=== PATIENT | female | born 1970 | race Caucasian/White ===

== ENCOUNTER 2021-05-14 13:19 | Outpatient (CLI) | payer OTHER, SELFPAY ==
[2021-05-14 13:46] LABS: D-Dimer Quantitative (DVT/PE) 0.42 FEU/ug/m (0.27-0.49)
== END 2021-05-14 23:59 | disposition short-term general hospital (02) ==
LOC: LABSPEC 13:24
PROVIDERS: PCP Family Medicine; Referring Provider Family Medicine; Visit Provider Family Medicine
DX: R07.9 Chest pain, unspecified (principal)
CPT/HCPCS: 85379

== ENCOUNTER 2025-04-07 09:48 | Emergency (ER) | payer OTHER, SELFPAY ==
[2025-04-07] VITALS (7 sets, daily range): BP systolic 105–159; BP diastolic 59–87; PULSE 81–114; RESP 15–18; TEMP 36.6–36.8; O2SAT 93–100; BMI 37.8
--- NOTE | 2025-04-07 09:49 | EDS_ITS ---
HPI History of Present Illness Chief Complaint: Chest Pain Narrative Narrative: Pt is a 54-year-old female who is presenting to the ER today with chief complaint of left mid/parasternal chest pain that radiates underneath her left breast. This does not radiate into her neck, jaw, arms or straight through to her back. Patient has a outpatient stress test ordered in May by her PCP, Dr. Manriquez. Patient has an echocardiogram that has been done in the last couple years. 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 Patient had no blood or vomit, no black tarry stools, no melena hematochezia Patient stated she is vomiting most of the food that she had for dinner last evening currently eating recipe. first episode was multiple times of emesis at that time. 2 different episodes, Patient started having vomiting around 1 AM this morning, Patient does take omeprazole daily. Patient also been having loose diarrhea stool as well. Patient initially took a Zofran tablet around approximate 1:30 AM. Patient took a Phenergan tablet around 3am and patient has not vomited since. is at bedside. Patient is on hormone therapy, no recent traveling. No recent heavy lifting twisting or turning. Patient has no rash. Patient currently has no abdominal pain or cramping. No diarrhea. Patient was told by her PCP if she has pain to come back into the ER to be evaluated. Patient's father had history of A-fib and cardiac history but no STEMI at a early age. Patient has no other first-degree relatives of STEMI or major cardiovascular disease or stroke at an early age. Patient non-smoker, no cocaine use. Patient heart score is 2, 1 for story, 1 for age REVIEW OF SYSTEMS: Unless otherwise stated in this report the patient's positive and negative responses for review of systems for constitutional, eyes, ENT, cardiovascular, respiratory, gastrointestinal, neurological, , musculoskeletal, and integument systems and related systems to the presenting problem are either stated in the history of present illness or were not pertinent or were negative for the symptoms and/or complaints related to the presenting medical problem. Nurse's notes and vital signs reviewed. The patient is not hypoxic. Vital signs reviewed and patient is not hypoxic. General: The patient appears well and in no apparent distress. Patient is resting comfortably on cart. Not toxic, lethargic, or listless. Skin: Warm, dry, no pallor noted. There is no rash noted. Head: Normocephalic, atraumatic Eye: Normal conjunctiva, no drainage, EOMI. PERRL. Ears, Nose, Mouth, and Throat: oral mucosa is moist. Nares patent. Mouth without vesicles. Cardiovascular: Regular Rate and Rhythm, no murmurs, gallops, or rubs. No reproducible tenderness to palpation to bilateral anterior, lateral, posterior chest wall. Respiratory: Patient is in no distress, no accessory muscle use, lungs are clear to auscultation, no wheezing, rales or rhonchi Back: non-tender, no CVA tenderness bilaterally to percussion. NO CTLS midline or paraspinal tenderness to palpation. GI: Soft, no tenderness to palpation, no masses appreciated. No rebound, guarding, or rigidity noted. Musculoskeletal: The patient has full range of motion of all extremities and j oints with no difficulty. Patient has no motor, no sensory deficits. Neurological: A&O x4, normal speech, no focal neurological deficits. Psychiatric: [facility] Home Medications ?Medication ?Instructions ?Recorded ?Last Taken ?Type ondansetron 4 mg disintegrating 4 mg PO Q8H PRN PRN Na usea #10 tabs 04/07/25 Unknown Rx tablet promethazine 25 mg rectal 25 mg RECTAL Q6H PRN PRN Tashi sea ##6 04/07/25 Unknown Rx suppository (Promethegan) Allergy/AdvReac Type Severity Reaction Status Date / Time piroxicam (From Feldene) AdvReac unknown Verified 04/07/25 09:50 terfenadine (From Seldane) AdvReac bruising Verified 04/07/25 09:50 Social History Smoking Status: Never smoker EXAM Physical Exam Const Vital Signs: 04/07/25 09:49 04/07/25 09:55 04/07/25 10:17 Temperature 98.3 F Temperature Source Oral Pulse Rate 114 H Respiratory Rate 18 Respiratory Effort Normal Blood Pressure 159/87 H Blood Pressure Mean 111 Pulse Ox 100 100 Oxygen Delivery Method Room Air Room Air 04/07/25 10:50 04/07/25 11:03 04/07/25 12:00 Temperature Temperature Source Pulse Rate 81 92 89 Respiratory Rate 15 15 18 Respiratory Effort Blood Pressure 140/67 H 134/59 H 129/59 H Blood Pressure Mean 91 84 82 Pulse Ox 99 100 100 Oxygen Delivery Method Room Air Room Air Room Air 04/07/25 13:03 Temperature Temperature Source Pulse Rate 97 Respiratory Rate 16 Respiratory Effort Blood Pressure 105/60 Blood Pressure Mean 75 Pulse Ox 93 Oxygen Delivery Method Room Air MDM MDM MDM Narrative Medical decision making narrative: Patient seen and examined: IV, labs, chest x-ray, aspirin prophylactically, IV fluids, Zofran, patient only wants Toradol for pain, no narcotics. Differential diagnosis includes but is not limited to: Nausea vomiting, gastritis, esophageal spasm, ACS, pneumonia, pneumothorax Relevant laboratory interpretation: Initial labs show no acute findings, initial troponin negative. Patient will have repeat troponin. Radiological studies: Chest x-ray shows no acute cardiopulmonary disease, no infiltrate, no effusion. Chest x-ray was interpreted by Dr. Mendoza. Reevaluation: EKG #1 EKG interpretation. EKG interpreted by Dr. Mendoza. Sinus tachycardia 101, normal axis deviation. EKG will be repeated as well. diffuse T wave inversion, QTc of 417, nonspecific ST changes. EKG #[address] Mendoza.. Normal sinus rhythm at 82 beats a minute. Normal axis deviation. Patient has T wave inversion noted in lead III, aVF. Patient no longer has diffuse T wave inversion as seen on the first EKG. Patient did show me an EKG from May 03, 2023 from her [facility]. Patient's EKG from 2023 is very similar to today's second EKG. Social barriers to healthcare: There are no food insecurities, there is no issue with transportation, there are no insurance barriers Disposition: Repeat troponin is done at noon, negative. Heart score 2. 1330 there was delay in receiving the second troponin. Plan blameless apologies were given to patient, she is very understanding. Patient pain is 1/10. Nausea has improved. Patient tolerating ice cubes and water with no difficulty. Patient will be discharged. 2 EKGs, 2 troponins. Both troponins were negative. Patient will follow-up with her PCP who she works with on Wednesday as well in the doctor's office. Strict return precautions were discussed, including intractable heaviness, tightness, pain. Any of the nausea, vomiting or any other acute concerns. Patient was given additional prescription for Zofran ODT and Phenergan suppositories. Patient will continue taking daily 81mg aspirin, no questions discharge. Critical care time 32 minutes exclusive from separate billable procedures that were performed. The following was considered in the determination of critical care but not limited to the level of medical decision making, intensive cardiac and/or respiratory monitoring, frequent vital sign monitoring, evaluation of laboratory studies, evaluation of radiographic studies, oxygen monitoring, and constant monitoring and speaking to family at bedside Lab Data Labs: Laboratory Results - last 24 hr 04/07/25 04/07/25 10:12 12:14 WBC 12.7 H RBC 5.01 Hgb 14.8 Hct 41.1 MCV 82.0 MCH 29.5 MCHC 36.0 RDW Std Deviation 38.3 RDW Coeff of Kirk 12.8 Plt Count 237 MPV 10.1 Immature Gran % (Auto) 0.300 Neut % (Auto) 93.6 H Lymph % (Auto) 2.5 L [place] % (Auto) 3.4 Eos % (Auto) 0.0 Baso % (Auto) 0.2 Absolute Neuts (auto) 11.9 H Absolute Lymphs (auto) 0.32 L Nucleated RBC % 0 Sodium 139 Potassium 3.9 Chloride 105 Carbon Dioxide 21.3 Anion Gap 13 BUN 23 H Creatinine 0.88 Estim Creat Clear Calc 77.91 Est GFR (MDRD) Non-Af 78 BUN/Creatinine Ratio 26.5 H Glucose 127 H Calcium 9.2 Troponin T High Sens < 6 Troponin T Hi Sens 2 Hr < 6 Radiography Diagnostic Testing: Clinical Impression(s) from Imaging Studies Chest X-Ray 04/07/25 09:50 IMPRESSION: NO ACUTE FINDINGS. Reading Location: [facility] Discharge Plan Triage Chief Complaint: Chest Pain ED Provider: Francisco Mendoza Dx/Rx/DC Orders Clinical Impression: Chest pain, Nausea & vomiting, Gastritis Instructions: ED Chest Pain, Uncertain Cause, ED Gastritis (Adult), ED Vomiting (Adult) Prescriptions: New promethazine [Promethegan] 25 mg suppository 25 mg RECTAL Q6H PRN PRN (Reason: Nausea) Qty: 6 0RF ondansetron 4 mg tablet,disintegrating 4 mg PO Q8H PRN PRN (Reason: Nausea) Qty: 10 0RF Primary Care Provider: Francisco Manriquez Referrals: Francisco Manriquez MD [Primary Care Provider, Family Practice] Activity Restrictions/Additional Instructions: Increase fluids at home for the next 1 to 2 days, clear liquids only. Gatorade, Powerade, water. On Wednesday or Wednesday, start introducing foods into diet. He is Zofran and Phenergan suppositories if needed. Follow-up with PCP for further recommendations and testing, and to move up your stress test if indicated. Print Language: Albanian Disposition Disposition: Home, Self Care
--- NOTE | 2025-04-07 09:50 | RAD_ITS ---
PROCEDURE: CHEST PA AND LATERAL 04/07/2025 REASON FOR EXAM: CP TECHNIQUE: Procedure Code: RADCXR Modality: DX Procedure: CHEST PA AND LATERAL COMPARISON: None FINDINGS: Hardware: None Heart: The heart size is normal. Mediastinum: The mediastinal contour is unremarkable. Lungs: The lungs are clear. Bones: The bones are unremarkable. RAD/Chest PA and Lateral IMPRESSION: NO ACUTE FINDINGS. Reading Location: [facility]
--- NOTE | 2025-04-07 10:12 | EKG12_ITS ---
Test Reason : CHEST PAIN Blood Pressure : */* mmHG Vent. Rate : 101 BPM Atrial Rate : 101 BPM P-R Int : 156 ms QRS Dur : 78 ms QT Int : 322 ms P-R-T Axes : 54 33 30 degrees QTcB Int : 417 ms Sinus tachycardia Possible Left atrial enlargement ST & T wave abnormality, consider anterior ischemia Abnormal ECG Confirmed by Brandon Olevra ([id number]), image editor GELY PASTOR ([id number]) on 04/13/2025 7:12:29 AM Referred By: Confirmed By: Brandon Olvera
--- OUTSIDE RECORDS SUMMARY | 2025-04-07 10:19 | XMS RPT_ITS | CCD ---
Author Organization [facility] CliniSyva Care Team Providers Care Bagger Meat Name Role Phone Sivakumar Matamoros PA-C Primary Care Provider [phone] Claude RN, Beverly Unavailable Unavailable Claude CAN, Beverly Unavailable Unavailable Sivakumar Matamoros PA-C Primary Care Provider [phone] Claude CAN, Beverly Unavailable Unavailable Tico Gould Unavailable Unavailable EYAL, HEENA Primary Care Unavailable KOBE TEMPLETON Referring Unavailable Eyal LEATHER GOODS ASSEMBLER.ARAM, Heena Primary Care Provider [phone] Evangelina Zambrano MD Unavailable Evangelina Zambrano MD Unavailable Stu PT, Marii Unavailable [phone] Eyal [employer] ASSEMBLER.ARAM, Heena Primary Care Provider [phone], Marii Unavailable [phone] Sivakumar Matamoros PA-C Primary Care Provider [phone] PROVIDER, UNKNOWN Referring Unavailable EYAL, HEENA Primary Care Unavailable EYAL, HEENA Primary Care Unavailable Eyal 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, Heena Primary Care Provider [phone] EYAL, HEENA Referring Unavailable EYAL, HEENA Primary Care Unavailable EYAL, HEENA Primary Care Unavailable EVANGELINA ZAMBRANO Attending Unavailable ARA CASSIDY Attending Unavailable EYAL, HEENA Primary Care Unavailable EVANGELINA ZAMBRANO Attending Unavailable EYAL, HEENA Primary Care Unavailable EYAL, HEENA Primary Care Unavailable VERNON NICOLE Attending Unavailable EYAL, HEENA Primary Care Unavailable EYAL, HEENA Referring Unavailable EYAL, HEENA Primary Care Unavailable EYAL, HEENA Referring Unavailable EYAL, HEENA Referring Unavailable EYAL, HEENA Primary Care Unavailable EYAL, HEENA Attending Unavailable Allergies Allergy Classification Reported Allergen(s) Allergy Type Date of Onset Reaction(s) Facility dog hair extract (2 sources) dog hair extract Drug Allergy 10-20-200 5 [facility] Dust (2 sources) Dust Substance Allergy 10-20-200 5 [facility] Mold Extract (2 sources) Mold Extract Drug Allergy 10-20-200 5 [facility] NSAIDs (2 sources) Piroxicam Drug Allergy 10-20-200 5 [facility] Pollen (2 sources) Grass pollen Substance Allergy 10-20-200 5 [facility] Terfenadine (2 sources) Terfenadine Drug Allergy 4 Other: See Comments [facility] Work Phone: (20 sources) dog hair extract; Translations: [DOG HAIR] Drug Allergy 10-20-200 5 [facility] Work Phone: (20 sources) Dust; Translations: [DUST] Propensity to adverse reactions 10-20-200 5 [facility] Work Phone: (20 sources) Grass pollen; Translations: [GRASS POLLEN] Propensity to adverse reactions 10-20-200 5 [facility] Work Phone: (20 sources) Mold Extract; Translations: [MOLD] Drug Allergy 10-20-200 5 [facility] Work Phone: (20 sources) Piroxicam; Translations: [PIROXICAM] Drug Allergy 10-20-200 5 [facility] Work Phone: (20 sources) Terfenadine Drug Allergy 10-20-200 5 [facility] Work Phone: (20 sources) Tree; Translations: [TREES] Propensity to adverse reactions 10-20-200 5 [facility] Work Phone: (20 sources) Cat Hair Extract; Translations: [CAT HAIR EXTRACT] Propensity to adverse reactions 10-20-200 5 [facility] Work Phone: (20 sources) Horse Hair And Dander; Translations: [HORSE HAIR AND DANDER] Propensity to adverse reactions 10-20-200 5 [facility] Work Phone: (1 source) OTHER; Translations: [OTHER] Propensity to adverse reactions (disorder) 5 [facility] Other [facility] (20 sources) Terfenadine; Translations: [SELDANE] Drug Allergy 4 Other: See Comments [facility] Work Phone: (2 sources) ELDERBERRY FRUIT; Translations: [ELDERBERRY FRUIT] Drug Allergy 5 Itching [facility] Medications Current Medications Medication Drug Class(es) Dates Sig (Normalized) Sig (Original) acetaminophen 500 mg oral tablet (20 sources) Start: 05-10-2023 take 2 tablets by mouth every eight hours as needed acetaminophen (TYLENOL) 500 mg tablet Take 2 tablets by mouth every 8 hours as needed for pain. 90 tablet 05/12/2023 4:50 PM EST 05/10/2023 Active End: 04-30-2023 take 2 tablets by mouth every six hours as needed acetaminophen (TYLENOL) 325 mg tablet Take 650 mg by mouth every 6 hours as needed. 04/30/2023 Discontinued (Course of therapy completed) Comment on above: Take 650 mg by mouth every 6 hours as needed. Take 2 tablets by mo uth every 8 hours as needed for pain. [id number] 200 actuat albuterol 0.09 mg/actuat metered dose inhaler (20 sources) beta2-Adrenergic Agonist Start: 04-01-20 End: 07-14-19 23 take 2 puff(s) by inhalation every four hours as needed for cough albuterol HFA (PROVENTIL HFA, VENTOLIN HFA) 90 mcg/actuation inhaler Indications: Cough Inhale 2 Puffs as instructed every 4 hours as needed (for cough, wheezing, chest tightness or shortness of breath. Use with spacer. ). 18 g 3 03/19/2023 3:20 PM EST 07/13/2022 Active Comment on above: Inhale 2 Puffs as in structed every 4 hours as needed (for cough, wheezing, chest tightness or shortness of breath. Use with spacer. ). amoxicillin 500 mg oral capsule (19 sources) Penicillin-class Antibacterial Start: 02-09-20 24 take 4 capsules by mouth every hour amoxicillin (AMOXIL) 500 mg capsule Take 4 capsules by mouth one hour prior to dental cleaning/procedure 4 capsule 3 02/09/2024 Active Start: 07-19-2023 End: 07-21-2023 take 4 tablets by mouth once Amoxicillin 500 mg tablet Take 4 tablets by mouth one time only for 1 dose. Take all 4 tablets 1 hour before dental procedure 4 tablet 0 07/19/2023 07/21/2023 amoxicillin 875 mg / clavulanate 125 mg oral tablet (1 source) Penicillin-class Antibacterial Start: 03-28-2024 End: 04-04-2024 take 1 tablet by mouth twice daily amoxicillin-clavulanate potassium (AUGMENTIN) 875-125 mg per tablet Take 1 tablet by mouth two times a day for 7 days. 14 tablet 03/28/2024 04/04/2024 Active azithromycin 250 mg oral tablet (1 source) Macrolide Antimicrobial Start: 11-19-2023 End: 11-24-2023 azithromycin (ZITHROMAX Z-IVON) 250 mg tablet Indications: Body aches , Chills , Sensation of fullness in left ear , Throat irritation , Chest tightness , Acute cough , Persistent cough for 3 weeks or longer Take 2 tablets day one, then, 1 tablet daily until gone. 6 tablet 0 11/19/2023 11/24/2023 Active benoxinate hydrochloride 4 mg/ml / fluorescein sodium 2.5 mg/ml ophthalmic solution (3 sources) Diagnostic Dye Start: 12-26-2024 End: 12-27-2024 fluorescein-benoxinate 0.25-0.4 % 1 drop (FLURESS) Start: 12-23-2023 End: 12-24-2023 fluorescein-benoxinate 0.3-0 .4 % 1 Drop (FLURESS) Start: 12-23-2023 End: 12-24-2023 1 Drop, BOTH EYES, DIRECT ED, Starting on Graciela 12/23/23 at 1330, Until Wed12/24/23 at 0129, Administer for applanation tonometry. In the event of a Fluress shortage, administer Marcela-Fluor 1 drop into both eyes as directed for applanation tonometry benzonatate 100 mg oral capsule (20 sources) Non-narcotic Antitussive Start: 11-19-2023 take 2 capsules by mouth three times daily as needed benzonatate (TESSALON PERLE) 100 mg capsule Indications: Body aches , Chills , Sensation of fullness in left ear , Throat irritation , Chest tightness , Acute cough , Persistent cough for 3 weeks or longer Take 2 capsules by mouth three times a day as needed. 30 capsule 1 11/19/2023 Active Start: 07-14-2022 End: 04-23-2023 take 2 capsules by mouth three times daily as needed benzonatate (TESSALON PERLE) 100 mg capsule Indications: Persistent cough for 3 weeks or longer Take 2 capsules by mouth three times daily as needed. 30 capsule 1 07/14/2022 04/23/2023 Discontinued Comment on above: Take 2 capsules by m outh three times daily as needed. 24 hr buPROPion hydrochloride 300 mg extended release oral tablet (20 sources) Aminoketone Start: End: take 1 tablet by mouth once daily in the evening buPROPion XL (WELLBUTRIN XL) 300 mg 24 hr tablet Indications: Anxiety , Adjustment disorder with mixed anxiety and depressed mood Take 1 tablet by mouth once daily. 90 tablet 3 12/04/2024 4:46 PM EDT 10/31/2024 Active Start: 08-27-2022 End: 10-22-2023 take 39-39.9 tablets by mouth twice daily buPROPion SR (WELLBUTRIN SR) 150 mg 12 hr tablet Indications: Recurrent major depressive disorder, in partial remission (HCC) , Class 2 severe obesity with serious comorbidity and body mass index (BMI) of 39.0 to 39.9 in adult, unspecified obesity type (HCC) Take 1 tablet by mouth twice daily. 180 tablet 3 10/08/2022 10/12/2023 Active Start: 09-29-2021 End: 05-26-2022 take 1 tablet by mouth once daily buPROPion XL (WELLBUTRIN XL) 300 mg 24 hr tablet Take 1 tablet by mouth once daily. 90 tablet 09/29/2021 05/26/2022 Discontinued (Discontinued by another Health Care Provider) Start: 09-29-2021 End: 03-02-2022 take 1 tablet by mouth once daily buPROPion XL (WELLBUTRIN XL) 150 mg 24 hr tablet Take 1 tablet by mouth once daily. To equal 450mg daily 90 tablet 0 09/29/2021 03/02/2022 Discontinued Start: 02-02-2022 take 1 tablet by [facility] once daily buPROPion XL (WELLBUTRIN XL) 150 mg 24 hr tablet Take 1 tablet by mouth once daily. To equal 450mg daily 90 tablet 1 05/14/2021 Active Start: 05-14-2021 take 1 tablet by [facility] once daily buPROPion XL (WELLBUTRIN XL) 300 mg 24 hr tablet Take 1 tablet by mouth once daily. 90 tablet 1 05/14/2021 Active Comment on above: Take 1 tablet by [facility] once daily. To equal 450mg daily Take 1 tablet by [facility] once daily. Take 1 tablet by [facility] twice daily. cholecalciferol 0.025 mg oral capsule (20 sources) Vitamin D take 1 capsule by mouth once daily Cholecalciferol, Vitamin D3, 25 mcg (1,000 unit) cap Take 1,000 Units by mouth once daily. Active Comment on above: Take 1,000 Units by mouth once daily. clobetasol propionate 0.0005 mg/mg topical ointment (20 sources) Corticosteroid Start: 014 End: 022 clobetasol (TEMOVATE) 0.05 % ointment Indications: Eczematous dermatitis Apply selectively to spots or lesions of eczematous and psoriasiform dermatitis of elbows and lower legs: once to twice per day for up to 2-4 weeks or less as needed until clear and then try to stop or taper off to a bland emollient cream such as CeraVe cream (or Cetaphil cream) as able. AVOID deep fold areas, face, eyes, and eyelids with the Clobetasol. 60 g 2 12/03/2021 Active Comment on above: Apply selectively to spots or lesions of eczematous and psoriasiform dermatitis of elbows and lower legs: once to twice per day for up to 2-4 weeks or less as needed until clear and then try to stop or taper off to a bland emollient cream such as CeraVe cream (or Cetaphil cream) as able. AVOID deep fold areas, face, eyes, and eyelids with the Clobetasol. cyclobenzaprine hydrochloride 10 mg oral tablet (20 sources) Muscle Relaxant Start: 024 take 1 tablet by mouth three times daily as needed for muscle spasms cyclobenzaprine (FLEXERIL) 10 mg tablet Indications: Scoliosis, unspecified scoliosis type, unspecified spinal region , Muscle spasm of back Take 1 tablet by mouth three times a day as needed for muscle spasm. 30 tablet 5 06/23/2024 4:08 PM EDT 10/22/2023 Active Start: 04-01-2020 End: 06-28-2023 take 1 tablet by mouth three times daily as needed for muscle spasms cyclobenzaprine (FLEXERIL) 10 mg tablet Indications: Scoliosis , Muscle spasm of back Take 1 tablet by mouth three times daily as needed for Muscle Spasm. 30 tablet 5 04/01/2020 06/28/2023 Discontinued (Course of therapy completed) Comment on above: Take 1 tablet by [facility] th three times daily as needed for Muscle Spasm. doxycycline monohydrate 100 mg oral tablet (1 source) Tetracycline-class Drug Start: 06-28-2022 End: 07-05-2022 take 1 tablet by mouth twice daily doxycycline monohydrate 100 mg tablet Indications: Lower resp. tract infection Take 1 tablet by mouth twice daily for 7 days. 14 tablet 0 06/28/2022 07/05/2022 Active Comment on above: Take 1 tablet by [facility] th twice daily for 7 days. estradiol 1 mg oral tablet (20 sources) Estrogen Start: 02-08-2023 End: 10-31-2024 take 1 tablet by mouth once daily in the evening estradiol (ESTRACE) 1 mg tablet Indications: Hot flashes due to menopause Take 1 tablet by mouth once daily. 90 tablet 3 11/14/2024 4:38 PM EDT 10/31/2024 Active Start: 09-19-2021 End: 01-27-2022 estradiol (ESTRING) 2 mg (7. 5 mcg /24 hour) vaginal ring Indications: Menopausal symptoms , Post-menopause on HRT (hormone replacement therapy) INSERT 1 RING VAGINALLY DIRECTED EVERY 3 MONTHS 1 Each 4 09/19/2021 01/27/2022 Discontinued (Discontinued by Patient) Start: 06-11-2021 End: 09-19-2021 estradiol (ESTRACE) 1 mg tab let Take 1 and 1/2 tablets by mouth once daily. 135 tablet 0 06/11/2021 09/19/2021 Discontinued Comment on above: Take 1 and 1/2 table ts by mouth once daily. INSERT 1 RING VAGINA LLY DIRECTED EVERY 3 MONTHS Take 1 tablet by [facility] th once daily. fexofenadine hydrochloride 180 mg oral tablet (20 sources) Histamine-1 Receptor Antagonist Start: End: 4 take 1 tablet by mouth once daily fexofenadine (TELLY) 180 mg tablet Take 1 tablet by mouth once daily. 90 tablet 3 08/06/2023 Active Comment on above: Take 180 mg by mouth once daily. Take 1 tablet by [facility] once daily. FLUoxetine 10 mg oral capsule (8 sources) Serotonin Reuptake Inhibitor Start: 5 take 1 capsule by mouth twice daily in the evening FLUoxetine (PROZAC) 10 mg capsule Indications: Anxiety , Adjustment disorder with mixed anxiety and depressed mood Take 1 capsule by mouth two times a day. 180 capsule 1 11/27/2024 4:20 PM EDT 11/24/2024 Active Start: 10-31-2024 End: 11-24-2024 take 1 capsule by mouth once daily FLUoxetine (PROZAC) 10 mg capsule Indications: Anxiety , Adjustment disorder with mixed anxiety and depressed mood Take 1 capsule by mouth once daily. 30 capsule 2 10/31/2024 11/24/2024 Discontinued fluticasone propionate 0.05 mg/actuat metered dose nasal spray (20 sources) Corticosteroid Start: 06-23-2013 take 2 spray(s) by mouth once daily fluticasone 50 mcg/actuation nasal spray Use 2 Sprays in each nostril once daily. Rinse mouth after use. 3 Bottle 3 06/23/2013 Active Comment on above: Use 2 Sprays in each nostril once daily. Rinse mouth after use. ibuprofen 600 mg oral tablet (20 sources) Nonsteroidal Anti-inflammatory Drug Start: 05-15-2023 take 1 tablet by mouth every six hours ibuprofen (MOTRIN) 600 mg tablet Take 600 mg by mouth every 6 hours. 05/15/2023 Active Comment on above: Take 600 mg by mouth every 6 hours. ketorolac tromethamine 10 mg oral tablet (3 sources) Nonsteroidal Anti-inflammatory Drug, Cyclooxygenase Inhibitor Start: 12-29-2023 End: 01-02-2024 take 1 tablet by mouth every six hours as needed for pain keTORolac (TORADOL) 10 mg tablet Indications: Acute pain of left shoulder , Acute left-sided thoracic back pain Take 1 tablet by mouth every 6 hours as needed for pain for up to 4 days. Patient should start on December 29, 2023. 16 tablet 12/29/2023 01/02/2024 Active Start: 12-28-2023 End: 12-28-2023 keTORolac 60 mg injection (T oradol) Start: 12-28-2023 End: 12-28-2023 60 mg, INTRAMUSCULAR, ONCE, 1 dose, On Wed12/28/23 at 0800, Ketorolac (Toradol) is indicated for the short-term (up to 5 days) management of moderately severe acute pain. Continuation of ketorolac (Toradol) beyond 5 days increases the risk of developing serious adverse events. Please verify the duration of therapy for ketorolac (Toradol)., If ordered PRN for pain, patient/guardian may elect to receive this medication for higher pain levels INSTEAD of the opioid, if preferred: Yes LORazepam 0.5 mg oral tablet (20 sources) Benzodiazepine Start: 05-21-2016 take 1 tablet by mouth every twelve hours as needed for anxiety and anxiety LORazepam (ATIVAN) 0.5 mg tab Indications: Anxiety Take 1 tablet by mouth twice daily as needed. 45 tablet 05/21/2016 Active Comment on above: Take 1 tablet by mouth twice daily as ne eded. [The details of the medication are not available because there are pending changes by a home health clinician.] multivit-min/rudi martin fumarate (MULTI VITAMIN ORAL) (20 sources) Start: 05-13-2023 multivit-min/f erro us fumarate (MULTI VITAMIN ORAL) Take 1 tablet by mouth once daily. Patient should start on May 13, 2023. 05/13/2023 Active Start: 05-13-2023 multivit-min/f errous fumarate (MULTI VITAMIN ORAL) Take 1 tablet by mouth once daily. Patient should start on May 13, 2023. 0 05/13/2023 Active multivit-min/rudi martin fumarate (MULTI VITAMIN ORAL) Take by mouth once daily. 0 Active multivit-min/rudi martin fumarate (MULTI VITAMIN ORAL) Take by mouth. 0 Active Comment on above: Take by mouth. Take by mouth once d aily. Take 1 tablet by [facility] th once daily. Patient should start on May 13, 2023. Naproxen (20 sources) Nonsteroidal Anti-inflammatory Drug NAPROXEN ORAL Take b y mouth. Active NAPROXEN ORAL Ta ke by mouth. 0 Active omeprazole 20 mg delayed release oral capsule (20 sources) Proton Pump Inhibitor Start: 06-03-2021 End: 07-17-2024 take 1 capsule by mouth once daily omeprazole (PRILOSEC) 20 mg capsule Take 1 capsule by mouth once daily. 90 capsule 3 07/18/2024 Active Comment on above: Take 1 capsule by mo [facility] once daily. ondansetron 8 mg disintegrating oral tablet (20 sources) Serotonin-3 Receptor Antagonist Start: 10-22-2023 take 1 tablet by mouth every eight hours as needed ondansetron orally disintegrating (ZOFRAN ODT) 8 mg disintegrating tablet Take 1 tablet by mouth every 8 hours as needed for nausea/vomiting. 30 tablet 5 02/04/2024 5:15 PM EDT 10/22/2023 Active Start: 05-12-2023 End: 10-22-2023 take 1 tablet by mouth every eight hours as needed ondansetron orally disintegrating (ZOFRAN ODT) 4 mg disintegrating tablet Take 1 tablet by mouth every 8 hours as needed for nausea/vomiting. 15 tablet 05/12/2023 10/22/2023 Discontinued End: 05-12-2023 take 1 tablet by mouth every eight hours as needed ondansetron (ZOFRAN) 4 mg tablet Take 4 mg by mouth every 8 hours as needed for nausea/vomiting. 05/12/2023 Discontinued Comment on above: Take 4 mg by mouth e very 8 hours as needed for nausea/vomiting. [facility] 8 hours as needed for nausea/vomiting. perflutren lipid microspheres 1.3 mL in NaCl (PF) 0.9% 10 mL injection (DEFINITY) (8 sources) Start: 06-12-2020 End: 09-12-2021 perflutren lipid microspheres 1.3 mL in NaCl (PF) 0.9% 10 mL injection (DEFINITY) phenylephrine hydrochloride 25 mg/ml ophthalmic solution (3 sources) alpha-1 Adrenergic Agonist Start: 12-26-2024 End: 12-27-2024 PHENYLephrine 2.5 % 1 drop (AK-DILATE, KAMINI-SYNEPHRINE) Start: 12-23-2023 End: 12-24-2023 PHENYLephrine 2.5 % 1 Drop ( AK-DILATE, KAMINI-SYNEPHRINE) Start: 12-17-2022 End: 12-17-2022 PHENYLephrine 2.5 % 1 Drop ( AK-DILATE, KAMINI-SYNEPHRINE) predniSONE 20 mg oral tablet (4 sources) Start: 09-08-2022 End: 09-13-2022 take 2 tablets by mouth once daily predniSONE (DELTASONE) 20 mg tablet Indications: Arthritis of left knee Take 2 tablets by mouth once daily for 5 days. 10 tablet 0 09/08/2022 09/13/2022 Active Start: 06-28-2022 End: 07-03-2022 take 2 tablets by mouth once daily predniSONE (DELTASONE) 20 mg tablet Indications: Lower resp. tract infection , History of asthma Take 2 tablets by mouth once daily for 5 days. 10 tablet 0 06/28/2022 07/03/2022 Active Comment on above: Take 2 tablets by [facility] once daily for 5 days. 125 ml sodium chloride 9 mg/ml prefilled syringe (8 sources) Start: End: 2 sodium chloride 0.9 % (flush) 10 mL (BD POSIFLUSH) traZODone hydrochloride 50 mg oral tablet (20 sources) Serotonin Reuptake Inhibitor Start: End: take 1-2 tablets by mouth once daily at bedtime traZODone (DESYREL) 50 mg tablet Take 1-2 tablets by mouth daily at bedtime. 180 tablet 1 04/11/2024 11:16 AM EST 03/20/2024 09/16/2024 Active Start: 06-18-2023 End: 03-17-2024 take 1-2 tablets by mouth once daily at bedtime traZODone (DESYREL) 50 mg tablet Take 1-2 tablets by mouth daily at bedtime. 90 tablet 1 03/17/2024 03/17/2024 Discontinued Comment on above: Take 1-2 tablets by mouth daily at bedtime. 1 ml triamcinolone acetonide 40 mg/ml injection (4 sources) Corticosteroid Start: 12-04-2022 End: 01-03-2023 triamcinolone acetonide 40 mg injection (KeNALog 40) Start: 12-04-2022 End: 12-04-2022 triamcinolone acetonide 40 m g injection (KeNALog 40) tropicamide 10 mg/ml ophthalmic solution (3 sources) Anticholinergic Start: 12-26-2024 End: 12-27-2024 tropicamide 1 % 1 drop (MYDRIACYL) Start: 12-23-2023 End: 12-24-2023 tropicamide 1 % 1 Drop (MYDR IACYL) Start: 12-17-2022 End: 12-17-2022 tropicamide 1 % 1 Drop (MYDR IACYL) Completed/Discontinued Medications Medication Drug Class(es) Dates Sig (Normalized) Sig (Original) ascorbic acid 500 mg oral tablet (20 sources) Vitamin C Start: 05-11-2023 End: 10-22-2023 take 1 tablet by mouth twice daily at mealtime ascorbic acid, vitamin C, (VITAMIN C) 500 mg tablet Take 1 tablet by mouth two times a day with meals for 28 doses. Patient should start on May 11, 2023. 28 tablet 05/11/2023 10/22/2023 Discontinued Comment on above: Take 1 tablet by [facility] two times a day with meals for 28 doses. Patient should start on May 11, 2023. aspirin 81 mg delayed release oral tablet (20 sources) Platelet Aggregation Inhibitor, Nonsteroidal Anti-inflammatory Drug Start: 05-11-2023 End: 10-22-2023 take 1 tablet by mouth twice daily aspirin, enteric coated (ASPIRIN, ENTERIC COATED) 81 mg EC tablet Take 1 tablet by mouth two times a day. Patient should start on May 11, 2023. 60 tablet 05/11/2023 10/22/2023 Discontinued Comment on above: Take 1 tablet by [facility] two times a day. Patient should start on May 11, 2023. chrm/vineg/bit-or ang peel/gr t (APPLE CIDER VINEGAR PLUS ORAL) (17 sources) End: 12-17-2022 chrm/vineg/bit-ora ng peel/gr t (APPLE CIDER VINEGAR PLUS ORAL) Take by mouth once daily. 0 12/17/2022 Discontinued (Other) chrm/vineg/bit-o rang peel/gr t (APPLE CIDER VINEGAR PLUS ORAL) Take by mouth once daily. 0 Active chrm/vineg/bit-o rang peel/gr t (APPLE CIDER VINEGAR PLUS ORAL) Take by mouth. 0 Active Comment on above: Take by mouth. Take by mouth once d aily. Cinnamon Preparation (17 sources) Non-Standardized Food Allergenic Extract End: 3 take 1 capsule by mouth twice daily CINNAMON Take by mouth twice daily. Capsule 0 12/17/2022 Discontinued (Other) take 1 capsule by mouth twice da artur CINNAMON Take by mouth twice daily. Capsule 0 Active CINNAMON Comment on above: Take by mouth twice daily. Capsule 24 hr desvenlafaxine succinate 25 mg extended release oral tablet (20 sources) Serotonin and Norepinephrine Reuptake Inhibitor Start: 022 End: 023 take 1 tablet by mouth once daily desvenlafaxine ER (PRISTIQ) 50 mg 24 hr tablet Take 1 tablet by mouth once daily. 90 tablet 1 03/04/2022 05/26/2022 Discontinued (Course of therapy completed) Start: 01-27-2022 End: 07-30-2022 take 1 tablet by mouth once daily desvenlafaxine ER (PRISTIQ) 25 mg 24 hr tablet Indications: Recurrent major depressive disorder, in partial remission (HCC) Take 1 tablet by mouth once daily. 30 tablet 2 01/27/2022 05/26/2022 Discontinued (Dosage adjustment) Comment on above: Take 1 tablet by [facility] th once daily. TAKE 1 TABLET BY [facility] TH ONCE DAILY. WEANING 50MG ALTERNATING WITH 25MG X 1 WEEK, THEN 25MG DAILY X 1 WEEK , THEN 25MG EVERY OTHER DAY X 1 WEEK AND OFF. diphenhydrAMINE (20 sources) Histamine-1 Receptor Antagonist End: 12-17-2022 diphenhydramine HCl (BENADRYL ORAL) Take by mouth as directed. 12/17/2022 Discontinued (Other) End: 12-17-2022 diphenhydramine HCl (BENADRY L ORAL) Take by mouth as directed. 0 12/17/2022 Discontinued (Other) diphenhydramine HCl (BENADRYL ORAL) Take by mouth as directed. 0 Active Comment on above: Take by mouth as dir ected. docusate sodium 100 mg oral capsule (16 sources) Start: 4 End: 4 take 1 capsule by mouth every twelve hours as needed docusate sodium (COLACE) 100 mg capsule Take 1 capsule by mouth two times a day as needed for constipation. 60 capsule 05/10/2023 06/11/2023 Comment on above: Take 1 capsule by [facility] two times a day as needed for constipation. escitalopram 10 mg oral tablet (20 sources) Serotonin Reuptake Inhibitor Start: 2 End: 3 take 1 tablet by mouth once daily escitalopram oxalate (LEXAPRO) 10 mg tablet Take 1 tablet by mouth once daily. 90 tablet 09/29/2021 05/26/2022 Discontinued (Discontinued by another Health Care Provider) Comment on above: Take 1 tablet by [facility] once daily. fluticasone / salmeterol (16 sources) Corticosteroid, beta2-Adrenergic Agonist Start: 3 End: 4 take 1 puff(s) by mouth twice daily fluticasone-salmetero l (ADVAIR DISKUS) 250-50 mcg/dose inhaler Inhale 1 Puff as instructed twice daily. Rinse and gargle mouth after use with water. 1 Each 2 08/19/2022 04/23/2023 Discontinued Start: 08-19-2022 take 1 puff(s) by [facility] twice daily fluticasone-salmeterol (ADVAIR DISKUS) 250-50 mcg/dose inhaler Inhale 1 Puff as instructed twice daily. Rinse and gargle mouth after use with water. 1 Each 2 08/19/2022 Active Comment on above: Inhale 1 Puff as ins tructed twice daily. Rinse and gargle mouth after use with water. 10 ml lidocaine hydrochloride 10 mg/ml injection (2 sources) Antiarrhythmic, Amide Local Anesthetic Start: 12-04-2022 End: 12-05-2022 lidocaine (PF) 10 mg/mL (1 %) 20 mg injection (XYLOCAINE) Start: 12-04-2022 End: 12-04-2022 lidocaine (PF) 10 mg/mL (1 % ) 2 mL injection (XYLOCAINE) montelukast 10 mg oral tablet (20 sources) Leukotriene Receptor Antagonist Start: 07-14-2022 End: 04-23-2023 take 1 tablet by mouth once daily at bedtime montelukast (SINGULAIR) 10 mg tablet Indications: Persistent cough for 3 weeks or longer Take 1 tablet by mouth daily at bedtime. 30 tablet 1 07/14/2022 04/23/2023 Discontinued Comment on above: Take 1 tablet by reina th daily at bedtime. naltrexone hydrochloride 50 mg oral tablet (13 sources) Opioid Antagonist Start: 10-22-2022 End: 10-22-2023 naltrexone 50 mg tablet Indications: Recurrent major depressive disorder, in partial remission (HCC) , Class 2 severe obesity with serious comorbidity and body mass index (BMI) of 39.0 to 39.9 in adult, unspecified obesity type (HCC) Take 1/2 tablet by mouth twice daily. 90 tablet 3 10/22/2022 05/10/2023 Discontinued Start: 09-24-2022 End: 10-22-2023 take 39-39.9 tablets by mouth twice daily naltrexone (TREXAN) 50 mg tablet Indications: Recurrent major depressive disorder, in partial remission (HCC) , Class 2 severe obesity with serious comorbidity and body mass index (BMI) of 39.0 to 39.9 in adult, unspecified obesity type (HCC) Take 0.5 tablets by mouth twice daily. 90 tablet 3 10/22/2022 10/22/2023 Active Comment on above: Take 0.5 tablets by mouth twice daily. Take 1/2 tablet by m outh twice daily. nystatin 100 unt/mg topical powder (20 sources) Polyene Antifungal Start: 09-15-2019 End: 10-22-2023 nystatin (MYCOSTATIN) powder Indications: Skin yeast infection [The details of the medication are not available because there are pending changes by a home health clinician.] 15 g 09/15/2019 10/22/2023 Discontinued Start: 09-15-2019 nystatin (MYCO STATIN) powder Indications: Skin yeast infection Apply 1 application to affected area four times daily. 15 g 0 09/15/2019 Active Comment on above: Apply 1 application to affected area four times daily. [The details of the medication are not available because there are pending changes by a home health clinician.] oxaprozin 600 mg oral tablet (1 source) Nonsteroidal Anti-inflammatory Drug Start: take 2 tablets by mouth once daily oxaprozin (DAYPRO) 600 mg tablet Take 2 tablets by mouth once daily. 60 tablet 5 01/12/2023 Active Comment on above: Take 2 tablets by [facility] once daily. oxyCODONE hydrochloride 5 mg oral tablet (13 sources) Opioid Agonist Start: 4 End: 4 take 1 tablet by mouth every six hours as needed for pain oxyCODONE IR (ROXICODONE) 5 mg immediate release tablet Indications: S/P total knee arthroplasty, left Take 1 tablet by mouth every 6 hours as needed for pain for up to 7 days. 28 tablet 05/20/2023 05/27/2023 Comment on above: Take 1-2 tablets by mouth every 6 hours as needed for pain for up to 7 days. Take 1 tablet by [facility] every 6 hours as needed for pain for up to 7 days. PARoxetine hydrochloride 20 mg oral tablet (20 sources) Serotonin Reuptake Inhibitor Start: 3 take 1 tablet by mouth once daily PARoxetine (PAXIL) 20 mg tablet Take 1 tablet by mouth once daily. 90 tablet 3 09/10/2022 Active Start: 05-26-2022 End: 02-08-2023 take 1 tablet by mouth once daily PARoxetine (PAXIL) 10 mg tablet Take 1 tablet by mouth once daily. 90 tablet 3 07/13/2022 02/08/2023 Discontinued Comment on above: Take 1 tablet by [facility] once daily. polyethylene glycol 3350 13683 mg powder for oral solution (13 sources) Osmotic Laxative Start: End: polyethylene glycol 3350 (MIRALAX) 17 gram/dose powder Take 1 capful (17 grams) by mouth once daily as needed for constipation for up to 10 days. Dissolve dose in 4 - 8 ounces of liquid and take as directed. 238 g 05/10/2023 05/26/2023 Comment on above: Take 1 capful (17 gr ams) by mouth once daily as needed for constipation for up to 10 days. Dissolve dose in 4 - 8 ounces of liquid and take as directed. promethazine hydrochloride 25 mg oral tablet (20 sources) Phenothiazine Start: End: take 0.5-1 tablets by mouth every four hours as needed for nausea promethazine (PHENERGAN) 25 mg tablet Take 1/2 - 1 tablet by mouth every 4 hours as needed for nausea 45 tablet 1 04/01/2020 05/12/2023 Discontinued Comment on above: Take 1/2 - 1 tablet by mouth every 4 hours as needed for nausea proparacaine hydrochloride 5 mg/ml ophthalmic solution (1 source) Local Anesthetic Start: End: proparacaine 0.5 % 1 Drop (ALCAINE) 0.25 mg, 0.5 mg dose 1.5 ml semaglutide 1.34 mg/ml pen injector (20 sources) Start: End: semaglutide (OZEMPIC) 0.25 mg or 0.5 mg(2 mg/1.5 mL) pen Indications: Obesity, Class II, BMI 35-39.9 Inject 0.25 mg subcutaneously one time a week. 4 Each 01/27/2022 05/26/2022 Discontinued Comment on above: Inject 0.25 mg subcu taneously one time a week. sucralfate 1000 mg oral tablet (1 source) Aluminum Complex Start: End: take 1 tablet by mouth four times daily sucralfate (CARAFATE) 1 gram tablet Take 1 tablet by mouth four times daily. 120 tablet 1 10/04/2020 07/17/2021 Discontinued (Course of therapy completed) Comment on above: Take 1 tablet by reina th four times daily. traMADol hydrochloride 50 mg oral tablet (4 sources) Opioid Agonist Start: End: take 1 tablet by mouth every six hours as needed for pain traMADol (ULTRAM) 50 mg tablet Indications: S/P total knee arthroplasty, left Take 1 tablet by mouth every 6 hours as needed for pain for up to 7 days. for pain. 28 tablet 0 06/28/2023 07/05/2023 End: 05-10-2023 take 1 tablet by mouth every eight hours as needed traMADol (ULTRAM) 50 mg tablet Take 50 mg by mouth every 8 hours as needed for pain. 0 05/10/2023 Discontinued Comment on above: Take 50 mg by mouth every 8 hours as needed for pain. Take 1 tablet by reina th every 6 hours as needed for pain for up to 7 days. for pain. Turmeric extract (17 sources) End: 12-17-2022 TURMERIC ORAL Take by mouth twice daily. 0 12/17/2022 Discontinued (Course of therapy completed) TURMERIC ORAL Ta ke by mouth twice daily. 0 Active TURMERIC ORAL Ta ke by mouth. 0 Active Comment on above: Take by mouth. Take by mouth twice daily. Problems Active Problems Problem Classification Problem Date Documented Da te Episodic/Chronic Adjustment disorders (20 sources) Adjustment disorder with depressed mood; Translations: [Adjustment disorder with depressed mood] Onset: 5 01-29-2005 Chronic Anxiety disorders (20 sources) Anxiety; Translations: [Anxiety disorder, unspecified] Onset: 4 05-03-2023 Chronic Asthma (20 sources) Mild intermittent asthma; Translations: [Mild intermittent asthma, uncomplicated] Onset: 7 03-19-2017 Chronic Blindness and vision defects (20 sources) Bilateral myopia of eyes; Translations: [Myopia, bilateral] Onset: 6 09-03-2017 Episodic Cataract (2 sources) Bilateral posterior subcapsular polar senile cataract of eyes; Translations: [Posterior subcapsular polar age-related cataract, bilateral] 12-17-2022 Chronic Disorders of teeth and jaw (20 sources) Temporomandibular joint crepitus; Translations: [Other specified disorders of temporomandibular joint] 01-29-2005 Episodic Esophageal disorders (20 sources) Gastroesophageal reflux disease without esophagitis; Translations: [Gastro-esophageal reflux disease without esophagitis] Onset: 7 03-19-2017 Chronic Hemorrhoids (20 sources) Internal hemorrhoids; Translations: [Other hemorrhoids] 11-23-2005 Episodic Immunizations and screening for infectious disease (2 sources) Vaccination needed; Translations: [Encounter for immunization] Episodic Menopausal disorders (3 sources) Menopausal symptom; Translations: [Menopausal and female climacteric states] Onset: 5 Chronic Menopausal disorders (1 source) Postmenopausal state; Translations: [Hormone replacement therapy] Episodic Mood disorders (20 sources) Recurrent major depression in partial remission; Translations: [Major depressive disorder, recurrent, in partial remission] Onset: 2 Chronic Nonspecific chest pain (1 source) Tight chest; Translations: [Other chest pain] 11-19-2023 Episodic Osteoarthritis (20 sources) Arthritis of left knee; Translations: [Unilateral primary osteoarthritis, left knee] Onset: 2 Chronic Other acquired deformities (1 source) Scoliosis deformity of spine; Translations: [Scoliosis, unspecified] 10-22-2023 Chronic Other aftercare (5 sources) Patient encounter status; Translations: [Aftercare following joint replacement surgery] 07-18-2023 Chronic Other circulatory disease (1 source) Elevated blood-pressure reading without diagnosis of hypertension; Translations: [Elevated blood-pressure reading, without diagnosis of hypertension] 10-31-2024 Episodic Other circulatory disease (1 source) Elevated blood-pressure reading, without diagnosis of hypertension; Translations: [Elevated blood pressure reading without diagnosis of hypertension] Onset: 5 Episodic Other connective tissue disease (20 sources) History of total knee arthroplasty; Translations: [Presence of left artificial knee joint] Onset: 4 05-12-2023 Chronic Other ear and sense organ disorders (1 source) Ear sensations - finding; Translations: [Other specified disorders of left ear] 11-19-2023 Episodic Other gastrointestinal disorders (20 sources) Irritable bowel syndrome; Translations: [Irritable bowel syndrome without diarrhea] 01-29-2005 Chronic Other inflammatory condition of skin (20 sources) Psoriasis; Translations: [Other psoriasis] Onset: 2 09-29-2011 Chronic Other injuries and conditions due to external causes (1 source) Injury of right rotator cuff; Translations: [Unspecified injury of muscle(s) and tendon(s) of the rotator cuff of right shoulder, subsequent encounter] Episodic Other lower respiratory disease (2 sources) Lower respiratory tract infection; Translations: [Unspecified acute lower respiratory infection] Episodic Other lower respiratory disease (2 sources) H/O: asthma; Translations: [Personal history of other diseases of the respiratory system] Episodic Other lower respiratory disease (2 sources) Cough; Translations: [Cough] Episodic Other lower respiratory disease (2 sources) Persistent cough; Translations: [Persistent cough for 3 weeks or longer] Episodic Other non-traumatic joint disorders (3 sources) Pain in right knee; Translations: [Pain in joint, lower leg] 12-04-2022 Episodic Other non-traumatic joint disorders (5 sources) Pain in left knee; Translations: [Pain in joint, lower leg] Onset: 5 05-24-2023 Episodic Other non-traumatic joint disorders (1 source) Pain in left shoulder; Translations: [Pain in joint, shoulder region] 12-28-2023 Episodic Other nutritional; endocrine; and metabolic disorders (20 sources) Obese class II; Translations: [Obesity, unspecified] Onset: 3 Chronic Other nutritional; endocrine; and metabolic disorders (4 sources) Severe obesity; Translations: [Morbid (severe) obesity due to excess calories] Chronic Other nutritional; endocrine; and metabolic disorders (20 sources) Obese class I; Translations: [Obesity, unspecified] Onset: 4 10-22-2023 Chronic Other screening for suspected conditions (not mental disorders or infectious disease) (20 sources) Patient encounter status; Translations: [Encounter for screening mammogram for malignant neoplasm of breast] Onset: 5 Resolved: 5 Episodic Other upper respiratory disease (20 sources) Allergic rhinitis; Translations: [Other allergic rhinitis] 01-29-2005 Chronic Other upper respiratory disease (1 source) Throat irritation; Translations: [Other diseases of pharynx] 11-19-2023 Episodic Other upper respiratory infections (2 sources) Upper respiratory infection; Translations: [Acute upper respiratory infection, unspecified] 03-20-2024 Episodic Residual codes; unclassified (1 source) Generalized aches and pains; Translations: [Pain, unspecified] 11-19-2023 Episodic Residual codes; unclassified (1 source) Chill; Translations: [Chills (without fever)] 11-19-2023 Episodic Spondylosis; intervertebral disc disorders; other back problems (2 sources) Spasm of back muscles; Translations: [Muscle spasm of back] 10-22-2023 Episodic Sprains and strains (2 sources) Sprain of right rotator cuff capsule; Translations: [Sprain of right rotator cuff capsule, initial encounter] Episodic Unclassified (1 source) Patient encounter status 08-02-2024 Past or Other Problems Problem Classification Problem Date Documented Date Episodic/Chronic Abdominal pain (20 sources) Right lower quadrant pain; Translations: [Right lower quadrant pain] Onset: 12-19-2008 Resolved: 05-31-2012 05-31-2012 Episodic Allergic reactions (20 sources) Eczema; Translations: [Dermatitis, unspecified] Onset: 09-29-2011 09-29-2011 Episodic Disorders usually diagnosed in infancy, childhood, or adolescence (20 sources) Adult attention deficit hyperactivity disorder ; Translations: [Other specified behavioral and emotional disorders with onset usually occurring in childhood and adolescence] Onset: 02-05-2010 Resolved: 05-31-2012 05-31-2012 Chronic Esophageal disorders (20 sources) Esophagitis; Translations: [Esophagitis, unspecified] Onset: 12-19-2008 Resolved: 08-15-2015 08-15-2015 Episodic Inflammation; infection of eye (except that caused by tuberculosis or sexually transmitteddisease) (20 sources) Episcleritis of left eye; Translations: [Unspecified episcleritis, left eye] Onset: 10-22-2015 Resolved: 09-03-2017 09-03-2017 Episodic Joint disorders and dislocations; trauma-related (20 sources) Snapping scapula; Translations: [Other articular cartilage disorders, right shoulder] Onset: 02-25-2005 Resolved: 02-08-2023 Chronic Joint disorders and dislocations; trauma-related (20 sources) Tear of medial meniscus of knee; Translations: [Other tear of medial meniscus, current injury, unspecified knee, initial encounter] Onset: 02-09-2017 02-09-2017 Episodic Nausea and vomiting (20 sources) Postoperative nausea and vomiting; Translations: [Nausea with vomiting, unspecified] Onset: 03-19-2017 Resolved: 02-08-2023 03-19-2017 Episodic Other inflammatory condition of skin (20 sources) Lichen simplex chronicus; Translations: [Lichen simplex chronicus] Onset: 09-29-2011 09-29-2011 Episodic Other inflammatory condition of skin (20 sources) Pruritic rash; Translations: [Other prurigo] Onset: 09-29-2011 Resolved: 08-15-2015 08-15-2015 Episodic Other inflammatory condition of skin (20 sources) Pruritus, unspecified; Translations: [Unspecified pruritic disorder] Onset: 09-29-2011 Resolved: 08-15-2015 08-15-2015 Episodic Other injuries and conditions due to external causes (20 sources) Excoriation of skin; Translations: [Other injury of unspecified body region, initial encounter] Onset: 09-29-2011 Resolved: 08-15-2015 08-15-2015 Episodic Other non-traumatic joint disorders (20 sources) Pain in lower limb; Translations: [Pain in unspecified knee] Onset: 11-01-2014 Resolved: 02-08-2023 11-01-2014 Episodic Other non-traumatic joint disorders (20 sources) Shoulder pain; Translations: [Pain in right shoulder] Onset: 08-13-2021 Episodic Other non-traumatic joint disorders (20 sources) Pain in right shoulder; Translations: [Pain in joint, shoulder region] Onset: 08-13-2021 Resolved: 02-08-2023 08-13-2021 Episodic Other skin disorders (20 sources) Asteatosis cutis; Translations: [Xerosis cutis] Onset: 09-29-2011 Resolved: 08-15-2015 08-15-2015 Episodic Residual codes; unclassified (20 sources) History of total hysterectomy with bilateral salpingo-oophorectomy ; Translations: [Acquired absence of both cervix and uterus] Onset: 10-01-2011 10-01-2011 Episodic Spondylosis; intervertebral disc disorders; other back problems (20 sources) Narrowing of intervertebral disc space; Translations: [Other intervertebral disc degeneration, lumbar region] Onset: 04-16-2009 Resolved: 05-31-2012 05-31-2012 Chronic Unclassified (20 sources) Superficial injury of lower limb, excluding foot; Translations: [Superficial injury of hip, thigh, leg, and ankle] Resolved: 05-31-2012 05-31-2012 Results Test Name Value Interpretation Reference Range Facility [facility] 12-29-2024 [facility] Telephone (BASILIAWS) DORIS GRACE ([id number]) 1970 F [facility] Date Time Provider Department 12/29/24 [facility] During your visit today, we recorded the following information about you: Gerson Villavicencio LPN 12/29/2024 1:32 PM Signed Pt asking if provider will send rx for tamiflu to pharmacy for her. Tested positive for influenza per home test. She started yesterday evening with scratchy throat that progressed through the evening. Started taking ibuprofen around midnight. She notes chills here and there but no fever; chest tightness with slight nonproductive cough. Renetta Mcgrath APRN.CNP 12/29/2024 3:26 PM Signed Script sent. Allergies As of Date: 12/29/2024 Noted Allergy Reaction CAT HAIR EXTRACT 01/29/2005 DOG HAIR 01/29/2005 DUST 01/29/2005 ELDERBERRY FRUIT 12/26/2024 9 - Itching FELDENE (PIROXICAM) 01/29/2005 Comments: BRUISING GRASS POLLEN 01/29/2005 HORSE HAIR AND DANDER 01/29/2005 MOLD 01/29/2005 SELDANE 05/10/2023 14 - Other: See Comments Comments: Heart palpitations TREES 01/29/2005 Date Reviewed: 12/26/2024 Reviewed by: Rhonda Juarez COA - Fully Assessed Reason for Visit: Patient Question [2037] Primary Visit Diagnosis:Influenza [J11.1] Order(s):oseltamivir (TAMIFLU) 75 mg capsuleTake 1 capsule by mouth two times a day for 5 days.Disp: 10 capsuleRfl: 0 Prescriptions as of 12/29/2024 - oseltamivir (TAMIFLU) 75 mg capsule Take 1 capsule by mouth two times a day for 5 days. - FLUoxetine (PROZAC) 10 mg capsule Take 1 capsule by mouth two times a day. - buPROPion XL (WELLBUTRIN XL) 300 mg 24 hr tablet Take 1 tablet by mouth once daily. - estradiol (ESTRACE) 1 mg tablet Take 1 tablet by mouth once daily. - omeprazole (PRILOSEC) 20 mg capsule Take 1 capsule by mouth once daily. - amoxicillin (AMOXIL) 500 mg capsule Take 4 capsules by mouth one hour prior to dental cleaning/procedure - NAPROXEN ORAL Take by mouth. - benzonatate (TESSALON PERLE) 100 mg capsule Take 2 capsules by mouth three times a day as needed. - cyclobenzaprine (FLEXERIL) 10 mg tablet Take 1 tablet by mouth three times a day as needed for muscle spasm. - ondansetron orally disintegrating (ZOFRAN ODT) 8 mg disintegrating tablet Take 1 tablet by mouth every 8 hours as needed for nausea/vomiting. - fexofenadine (TELLY) 180 mg tablet Take 1 tablet by mouth once daily. - ibuprofen (MOTRIN) 600 mg tablet Take 600 mg by mouth every 6 hours. - acetaminophen (TYLENOL) 500 mg tablet Take 2 tablets by mouth every 8 hours as needed for pain. - albuterol HFA (PROVENTIL HFA, VENTOLIN HFA) 90 mcg/actuation inhaler Inhale 2 Puffs as instructed every 4 hours as needed (for cough, wheezing, chest tightness or shortness of breath. Use with spacer. ). - clobetasol (TEMOVATE) 0.05 % ointment Apply selectively to spots or lesions of eczematous and psoriasiform dermatitis of elbows and lower legs: once to twice per day for up to 2-4 weeks or less as needed until clear and then try to stop or taper off to a bland emollient cream such as CeraVe cream (or Cetaphil cream) as able. AVOID deep fold areas, face, eyes, and eyelids with the Clobetasol. - multivit-min/ferrous fumarate (MULTI VITAMIN ORAL) Take 1 tablet by mouth once daily. Patient should start on May 13, 2023. - LORazepam (ATIVAN) 0.5 mg tab Take 1 tablet by mouth twice daily as needed. - fluticasone 50 mcg/actuation nasal spray Use 2 Sprays in each nostril once daily. Rinse mouth after use. - Cholecalciferol, Vitamin D3, 25 mcg (1,000 unit) cap Take 1,000 Units by mouth once daily. Problem List As Of Date 12/29/2024 Noted Resolved ALLERGIC RHINITIS NEC [J30.89] ADJUSTMENT DISORDER WITH DEPRESSED MOOD [F43.21] TMJ SOUNDS ON OPEN/ CLOSE JAW [M26.69] IRRITABLE COLON [K58.9] Superficial injury of hip, thigh, leg, and ankl* 05/31/2012 Old disruption of anterior cruciate ligament [M*02/25/2005 05/31/2012 Abdominal pain, right lower quadrant [R10.31] 05/31/2012 INT HEMORRHOID W/O COMPL [K64.8] Abdominal pain, epigastric [R10.13] 12/19/2008 05/31/2012 Esophagitis, unspecified [K20.90] 12/19/2008 08/15/2015 Lumbar disc narrowing [M51.369] 04/16/2009 05/31/2012 Adult attention deficit disorder [F98.8] 02/05/2010 05/31/2012 Eczematous dermatitis [L30.9] 09/29/2011 Other psoriasis [L40.8] 09/29/2011 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 Normal [facility] DBT Breast - left diagnostic for implanton 12-05-2024 IMPRESSION: There is no mammographic evidence of malignancy. Return to annual screening mammogram is recommended. Annual mammogram will be due in 11 months. BI-RADS Category 2: Benign RISK: Based on the Tyrer-Cuzick (TC) risk assessment model, this patient has a 4.5% lifetime risk of developing breast cancer, meaning they are at average risk for developing breast cancer. However, this is only an estimate based on available history provided on the patient's questionnaire. We encourage all patients to talk with their providers about these results, further recommendations for managing breast health, and appropriate supplemental screening options if the patient has dense breast tissue. Interpreting Radiologist: Kobe Mcdonald M.D. Electronically signed on: 12/05/2024 Tobacco Conditioner: BELEM Transcribe Date/Time: Dec 05 2024 10:46A Dictated by: KOBE MCDONALD MD This examination was interpreted and the report reviewed and electronically signed by: KOBE MCDONALD MD on Dec 05 2024 12:10PM [facility] DIVISION OF RADIOLOGY * * *Final Report* * * DATE OF EXAM: Dec 05 2024 10:54AM [facility] [id number] - STEFFI DIAG W SAMUEL LT / PROCEDURE REASON: Abnormal mammogram * * * * Physician Interpretation * * * * RESULT: [facility] [address] [id number] #[id number] - STEFFI DIAG W SAMUEL LT HISTORY: 54 year-old patient presents for diagnostic evaluation of @finding in the left breast. Patient states no personal history of breast cancer. COMPARISON STUDIES: The present examination has been compared to prior imaging studies dated 06/19/2021 (mammogram), 07/16/2022 (mammogram), 08/25/2022 (mammogram), 08/26/2023 (mammogram) and 10/31/2024 (mammogram). MAMMOGRAM TECHNIQUE: The study was acquired using full field digital technology and interpreted from soft copy. Digital Breast Tomosynthesis (DBT) images were obtained and used to assist in the interpretation of this examination. MAMMOGRAM FINDINGS: The breast is almost entirely fatty. The area of concern effaces on additional imaging, suggesting superimposed fibroglandular tissue. No suspicious masses, calcifications or other abnormalities are seen in the left breast. DIVISION OF RADIOLOGY Provider, [facility] - 12/05/2024 * * *Final Report* * * DATE OF EXAM: Dec 05 2024 10:54AM [facility] 0628 - STEFFI DIAG W SAMUEL LT / PROCEDURE REASON: Abnormal mammogram * * * * Physician Interpretation * * * * RESULT: [facility] [address] [place] [address] #[id number] - STEFFI DIAG W SAMUEL LT HISTORY: 54 year-old patient presents for diagnostic evaluation of @finding in the left breast. Patient states no personal history of breast cancer. COMPARISON STUDIES: The present examination has been compared to prior imaging studies dated 06/19/2021 (mammogram), 07/16/2022 (mammogram), 08/25/2022 (mammogram), 08/26/2023 (mammogram) and 10/31/2024 (mammogram). MAMMOGRAM TECHNIQUE: The study was acquired using full field digital technology and interpreted from soft copy. Digital Breast Tomosynthesis (DBT) images were obtained and used to assist in the interpretation of this examination. MAMMOGRAM FINDINGS: The breast is almost entirely fatty. The area of concern effaces on additional imaging, suggesting superimposed fibroglandular tissue. No suspicious masses, calcifications or other abnormalities are seen in the left breast. IMPRESSION IMPRESSION: There is no mammographic evidence of malignancy. Return to annual screening mammogram is recommended. Annual mammogram will be due in 11 months. BI-RADS Category 2: Benign RISK: Based on the Tyrer-Cuzick (TC) risk assessment model, this patient has a 4.5% lifetime risk of developing breast cancer, meaning they are at average risk for developing breast cancer. However, this is only an estimate based on available history provided on the patient's questionnaire. We encourage all patients to talk with their providers about these results, further recommendations for managing breast health, and appropriate supplemental screening options if the patient has dense breast tissue. Interpreting Radiologist: Kobe Mcdonald M.D. Electronically signed on: 12/05/2024 Tobacco Conditioner: BELEM Transcribe Date/Time: Dec 05 2024 10:46A Dictated by: KOBE MCDONALD MD This examination was interpreted and the report reviewed and electronically signed by: KOBE MCDONALD MD on Dec 05 2024 12:10PM EST [facility] Radiology Study observation (narrative) [facility] DBT Breast - left diagnostic for implantOrdered By: [facility] Provider on 12-05-2024 [facility] STEFFI DIAG W SAMUEL LTon 025 STEFFI DIAG W SAMUEL LT * * *Final Report* * * DATE OF EXAM: Dec 05 2024 10:54AM [facility] 0628 - STEFFI DIAG W SAMUEL LT / PROCEDURE REASON: Abnormal mammogram * * * * Physician Interpretation * * * * RESULT: [place] [address] [place] [address] #[id number] - [facility] ROCHELLE BAKER LT HISTORY: 54 year-old patient presents for diagnostic evaluation of @finding in the left breast. Patient states no personal history of breast cancer. COMPARISON STUDIES: The present examination has been compared to prior imaging studies dated 06/19/2021 (mammogram), 07/16/2022 (mammogram), 08/25/2022 (mammogram), 08/26/2023 (mammogram) and 10/31/2024 (mammogram). MAMMOGRAM TECHNIQUE: The study was acquired using full field digital technology and interpreted from soft copy. Digital Breast Tomosynthesis (DBT) images were obtained and used to assist in the interpretation of this examination. MAMMOGRAM FINDINGS: The breast is almost entirely fatty. The area of concern effaces on additional imaging, suggesting superimposed fibroglandular tissue. No suspicious masses, calcifications or other abnormalities are seen in the left breast. IMPRESSION: There is no mammographic evidence of malignancy. Return to annual screening mammogram is recommended. Annual mammogram will be due in 11 months. BI-RADS Category 2: Benign RISK: Based on the Tyrer-Cuzick (TC) risk assessment model, this patient has a 4.5% lifetime risk of developing breast cancer, meaning they are at average risk for developing breast cancer. However, this is only an estimate based on available history provided on the patient's questionnaire. We encourage all patients to talk with their providers about these results, further recommendations for managing breast health, and appropriate supplemental screening options if the patient has dense breast tissue. Interpreting Radiologist: Kobe Mcdonald M.D. Electronically signed on: 12/05/2024 Tobacco Conditioner: BELEM Transcribe Date/Time: Dec 05 2024 10:46A Dictated by: KOBE MCDONALD MD This examination was interpreted and the report reviewed and electronically signed by: KOBE MCDONALD MD on Dec 05 2024 12:10PM EST [id number] N Normal [facility] Jerad 11-24-2024 JAVIER Telephone (INTMWS) DORIS GRACE ([id number]) 1970 F [facility] Date Time Provider Department 11/24/24 HEENA BIRCH During your visit today, we recorded the following information about you: Allergies As of Date: 11/24/2024 Noted Allergy Reaction CAT HAIR EXTRACT 01/29/2005 DOG HAIR 01/29/2005 DUST 01/29/2005 FELDENE (PIROXICAM) 01/29/2005 Comments: BRUISING GRASS POLLEN 01/29/2005 HORSE HAIR AND DANDER 01/29/2005 MOLD 01/29/2005 SELDANE 05/10/2023 14 - Other: See Comments Comments: Heart palpitations TREES 01/29/2005 Date Reviewed: 10/31/2024 Reviewed by: Heena Birch APRN.ASSOCIATE MERCHANDISE PLANNER - Fully Assessed Reason for Visit: Refill Request [94] Visit Diagnoses:Anxiety [F41.9] Adjustment disorder with mixed anxiety and depressed mood [F43.23] Order(s):FLUoxetine (PROZAC) 10 mg capsuleTake 1 capsule by mouth two times a day.Disp: 180 capsuleRfl: 1 Prescriptions as of 11/24/2024 - FLUoxetine (PROZAC) 10 mg capsule Take 1 capsule by mouth two times a day. - buPROPion XL (WELLBUTRIN XL) 300 mg 24 hr tablet Take 1 tablet by mouth once daily. - estradiol (ESTRACE) 1 mg tablet Take 1 tablet by mouth once daily. - omeprazole (PRILOSEC) 20 mg capsule Take 1 capsule by mouth once daily. - amoxicillin (AMOXIL) 500 mg capsule Take 4 capsules by mouth one hour prior to dental cleaning/procedure - NAPROXEN ORAL Take by mouth. - benzonatate (TESSALON PERLE) 100 mg capsule Take 2 capsules by mouth three times a day as needed. - cyclobenzaprine (FLEXERIL) 10 mg tablet Take 1 tablet by mouth three times a day as needed for muscle spasm. - ondansetron orally disintegrating (ZOFRAN ODT) 8 mg disintegrating tablet Take 1 tablet by mouth every 8 hours as needed for nausea/vomiting. - fexofenadine (TELLY) 180 mg tablet Take 1 tablet by mouth once daily. - ibuprofen (MOTRIN) 600 mg tablet Take 600 mg by mouth every 6 hours. - acetaminophen (TYLENOL) 500 mg tablet Take 2 tablets by mouth every 8 hours as needed for pain. - albuterol HFA (PROVENTIL HFA, VENTOLIN HFA) 90 mcg/actuation inhaler Inhale 2 Puffs as instructed every 4 hours as needed (for cough, wheezing, chest tightness or shortness of breath. Use with spacer. ). - clobetasol (TEMOVATE) 0.05 % ointment Apply selectively to spots or lesions of eczematous and psoriasiform dermatitis of elbows and lower legs: once to twice per day for up to 2-4 weeks or less as needed until clear and then try to stop or taper off to a bland emollient cream such as CeraVe cream (or Cetaphil cream) as able. AVOID deep fold areas, face, eyes, and eyelids with the Clobetasol. - multivit-min/ferrous fumarate (MULTI VITAMIN ORAL) Take 1 tablet by mouth once daily. Patient should start on May 13, 2023. - LORazepam (ATIVAN) 0.5 mg tab Take 1 tablet by mouth twice daily as needed. - fluticasone 50 mcg/actuation nasal spray Use 2 Sprays in each nostril once daily. Rinse mouth after use. - Cholecalciferol, Vitamin D3, 25 mcg (1,000 unit) cap Take 1,000 Units by mouth once daily. Problem List As Of Date 11/24/2024 Noted Resolved ALLERGIC RHINITIS NEC [J30.89] ADJUSTMENT DISORDER WITH DEPRESSED MOOD [F43.21] TMJ SOUNDS ON OPEN/ CLOSE JAW [M26.69] IRRITABLE COLON [K58.9] Superficial injury of hip, thigh, leg, and ankl* 05/31/2012 Old disruption of anterior cruciate ligament [M*02/25/2005 05/31/2012 Abdominal pain, right lower quadrant [R10.31] 05/31/2012 INT HEMORRHOID W/O COMPL [K64.8] Abdominal pain, epigastric [R10.13] 12/19/2008 05/31/2012 Esophagitis, unspecified [K20.90] 12/19/2008 08/15/2015 Lumbar disc narrowing [M51.369] 04/16/2009 05/31/2012 Adult attention deficit disorder [F98.8] 02/05/2010 05/31/2012 Eczematous dermatitis [L30.9] 09/29/2011 Other psoriasis [L40.8] 09/29/2011 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] 09/29/2011 08/15/2015 Lichenification and lichen simplex chronicus [L*09/29/2011 Pruritus [L29.9] 09/29/2011 08/15/2015 Excoriation [T14.8XXA] 09/29/2011 08/15/2015 Xerosis cutis [L85.3] 09/29/2011 08/15/2015 H/O total hysterectomy with removal of both tub*10/01/2011 Counseling and coordination of care [Z71.89] 08/23/2014 12/20/2014 Pain in joint, lower leg [M25.569] 11/01/2014 02/08/2023 Myopia, bilateral [H52.13] 08/19/2015 Episcleritis of left eye [H15.102] 10/22/2015 09/03/2017 Tear of medial meniscus of knee joint [S83.249A]02/09/2017 Gastroesophageal reflux disease without esophag*03/19/2017 PONV (postoperative nausea and vomiting) [R11.2*03/19/2017 02/08/2023 Mild intermittent asthma without complication [*03/19/2017 Acute pain of right shoulder [M25.511] 08/13/2021 02/08/2023 Snapping scapula syndrome of right shoulder [M2*08/13/2021 02/08/2023 Recurrent major depressive disorder, in partial*01/22/2022 Arthritis of left knee [M17.12] 03/19/2022 Obesity, Class II, BMI 35-39.9 [E66.812] 02/08/2023 Primary osteoa (more content not included)... Normal [facility] CNOVon 10-31-2024 CNOV Office Visit (INTMWS ) DORIS GRACE ([id number]) 1970 F [facility] Date Time Provider Department 10/31/24 1:00 PM HEENA BIRCH During your visit today, we recorded the following information about you: Pulse Blood pressure Weight 79/minute 124/85 92 kg Heena Birch APRN.ASSOCIATE MERCHANDISE PLANNER 10/31/2024 2:25 PM Signed SUBJECTIVE Doris Grace is a 54 year old female here today for a check up on her medical problems. Chief Complaint Patient presents with: Acute Visit: Elevated bp and stress HPI Doris Grace is a 54 year old female. She is an established patient who presents today for concerns of blood pressure being elevated with home monitoring and having increased stress. Extra stress at work right now, feeling more anxiety. Using ativan more. Headaches more but might be from more stress. In the past has taken zoloft, effexor, paxil. Side effects with those. Home bp elevated but cuff was small for her. Her medications were reviewed today and her list is now up to date. Medications Current Outpatient Medications Medication Sig omeprazole (PRILOSEC) 20 mg capsule Take 1 capsule by mouth once daily. NAPROXEN ORAL Take by mouth. cyclobenzaprine (FLEXERIL) 10 mg tablet Take 1 tablet by mouth three times a day as needed for muscle spasm. ondansetron orally disintegrating (ZOFRAN ODT) 8 mg disintegrating tablet Take 1 tablet by mouth every 8 hours as needed for nausea/vomiting. fexofenadine (TELLY) 180 mg tablet Take 1 tablet by mouth once daily. ibuprofen (MOTRIN) 600 mg tablet Take 600 mg by mouth every 6 hours. acetaminophen (TYLENOL) 500 mg tablet Take 2 tablets by mouth every 8 hours as needed for pain. albuterol HFA (PROVENTIL HFA, VENTOLIN HFA) 90 mcg/actuation inhaler Inhale 2 Puffs as instructed every 4 hours as needed (for cough, wheezing, chest tightness or shortness of breath. Use with spacer. ). clobetasol (TEMOVATE) 0.05 % ointment Apply selectively to spots or lesions of eczematous and psoriasiform dermatitis of elbows and lower legs: once to twice per day for up to 2-4 weeks or less as needed until clear and then try to stop or taper off to a bland emollient cream such as CeraVe cream (or Cetaphil cream) as able. AVOID deep fold areas, face, eyes, and eyelids with the Clobetasol. multivit-min/ferrous fumarate (MULTI VITAMIN ORAL) Take 1 tablet by mouth once daily. Patient should start on May 13, 2023. LORazepam (ATIVAN) 0.5 mg tab Take 1 tablet by mouth twice daily as needed. (Patient taking differently: Take 0.5 mg by mouth two times a day as needed (anxiety ). Takes once daily NEEDED) fluticasone 50 mcg/actuation nasal spray Use 2 Sprays in each nostril once daily. Rinse mouth after use. Cholecalciferol, Vitamin D3, 25 mcg (1,000 unit) cap Take 1,000 Units by mouth once daily. buPROPion XL (WELLBUTRIN XL) 300 mg 24 hr tablet Take 1 tablet by mouth once daily. estradiol (ESTRACE) 1 mg tablet Take 1 tablet by mouth once daily. FLUoxetine (PROZAC) 10 mg capsule Take 1 capsule by mouth once daily. amoxicillin (AMOXIL) 500 mg capsule Take 4 capsules by mouth one hour prior to dental cleaning/procedure benzonatate (TESSALON PERLE) 100 mg capsule Take 2 capsules by mouth three times a day as needed. (Patient not taking: Reported on 10/31/2024) No current facility-administered medications for this visit. ALLERGIES Allergen Reactions Cat Hair Extract Dog Hair Dust Feldene [Piroxicam] BRUISING Grass Pollen Horse Hair And Dand* Mold Seldane Other: See Comments Heart palpitations Trees ACTIVE PROBLEM LIST Obesity, Class I, Bmi 30-34.9 - 10/22/2023 S/P Total Knee Arthroplasty, Left - 05/11/2023 Anxiety - 05/03/2023 Obesity, Class II, Bmi 35-39.9 - 02/08/2023 Primary Osteoarthritis of Both Knees - 02/08/2023 Arthritis of Left Knee - 03/19/2022 Recurrent Major Depressive Disorder, in Partial Remission - 01/22/2022 Gastroesophageal Reflux Disease Without Esophagitis - 03/19/2017 Mild Intermittent Asthma Without Complication (Hcc) - 03/19/2017 Tear of Medial Meniscus of Knee Joint - 02/09/2017 Comment: Added automatically from request for surgery [id number] Myopia, Bilateral - 08/19/2015 H/O Total Hysterectomy With Removal of Both Tubes and Ovaries - 10/01/2011 Eczematous Dermatitis - 09/29/2011 Other Psoriasis - 09/29/2011 Lichenification and Lichen Simplex Chronicus - 09/29/2011 Internal Hemorrhoids Without Mention of Complication Allergic Rhinitis Due to Other Allergen Adjustment Disorder With Depressed Mood Temporomandibular Joint Sounds On Opening and/Or Closing The Jaw Irritable Bowel Syndrome Social History Tobacco Use Smoking status: Never Smokeless tobacco: Never Vaping Use Vaping status: Never Used Substance Use Topics Alcohol use: Yes Comment: OCCASIONALLY Drug use: No Review of Systems Respiratory: Negative (more content not included)... Normal [facility] STEFFI SCREENING W TOMOon 10-31 STEFFI SCREENING W SAMUEL * * *Final Report* * * DATE OF EXAM: Oct 31 2024 11:45AM W 0582 - STEFFI SCREENING W SAMUEL / PROCEDURE REASON: Encounter for screening mammogram for malignant neoplasm of breast * * * * Physician Interpretation * * * * RESULT: [place] [address] #[id number] - STEFFI SCREENING W SAMUEL HISTORY: 54 year-old patient presents for screening. Patient is asymptomatic in both breasts. Patient states no personal history of breast cancer. COMPARISON STUDIES: The present examination has been compared to prior imaging studies dated 05/17/2020 (mammogram), 06/19/2021 (mammogram), 07/16/2022 (mammogram), 08/25/2022 (mammogram) and 08/26/2023 (mammogram). MAMMOGRAM TECHNIQUE: The study was acquired using full field digital technology and interpreted from soft copy. Digital Breast Tomosynthesis (DBT) images were obtained and used to assist in the interpretation of this examination. MAMMOGRAM FINDINGS: The breasts are almost entirely fatty. There is an asymmetry in the lateral left breast. No suspicious masses, calcifications or other abnormalities are seen in the right breast. IMPRESSION: The asymmetry in the lateral left breast requires additional evaluation. Diagnostic mammogram is recommended. BI-RADS Category 0: Incomplete: Needs Additional Imaging Evaluation RISK: Based on the Tyrer-Cuzick (TC) risk assessment model, this patient has a 4.5% lifetime risk of developing breast cancer, meaning they are at average risk for developing breast cancer. However, this is only an estimate based on available history provided on the patient's questionnaire. We encourage all patients to talk with their providers about these results, further recommendations for managing breast health, and appropriate supplemental screening options if the patient has dense breast tissue. REF#[id number]. Interpreting Radiologist: Krystyna Gracia M.D. Electronically signed on: 11/01/2024 Tobacco Conditioner: BELEM Transcribe Date/Time: Oct 31 2024 11:31A Dictated by: KRYSTYNA GRACIA MD This examination was interpreted and the report reviewed and electronically signed by: KRYSTYNA GRACIA MD on Nov 01 2024 8:21PM EST [id number] N Normal [facility] CNOVon 06-02-2024 CNOV Office Visit (ORMDNA ) DORIS GRACE ([id number]) 1970 [facility] Date Time Provider Department 06/02/24 11:15 AM EVANGELINA ZAMBRANO ORSHARMAINE During your visit today, we recorded the following information about you: Evangelina Zambrano MD 06/30/2024 11:[address] ZAMBRANO- POST-OP KNEE ========= Post-Op F/U Office Visit ========= Doris Grace presents today for a 1 year status post Left TKA. Post-operative recovery was uneventful. Patient's rating of condition: improving Does the Pt. still experience pain? PAIN EVALUATION 06/02/2024 1123 Pain Level: 5 Pain Location: Knee-Left Description: Stiffness pinching Frequency: Intermittent Intervention/Comfort measure: Positioning Functional difficulties: None Physical Therapy: Completed course of therapy Pain Medication: None Ambulating without assistance. Medications and Allergies reviewed and verified. ========= EXAM: ========= GEN: AANDO x3, NAD SKIN:Appropriate postop appearance Incision intact Incision well healed LeftKnee: ROM: Flexion/Extension:0 degrees to 120 degrees Pain with ROM:No Mal-alignment: No Effusion: None Non Tender to palpation of the medial , lateral , and patellofemoral joint line(s). Stability:Anterior/Po sterior- Yes, stable and Varus/Valgus- Yes, stable Quad strength: normal HIP: range of motion no loss ROM NV: intact and Catherine's negative ========= IMAGING: ========= Xrays: Implants are well aligned. Implants are well fixed. There is no evidence of loosening. There is evidence of osteo-integration. There is no evidence of osteolysis. Patella is well positioned. ======= IMPRESSION/PLAN: ======= 53 year old female s/p Left TKA No complaints or limitations. At normal post-operative stage of recovery. Plan: 1. Continue independent range of motion/strengthening exercises 2. We reviewed total knee precautions including antibiotic prophylactic protocols for dental procedures 3. Follow-up 5 years for repeat clinical/radiographic evaluation or sooner should she develop any new orthopedic problems Evangelina Zambrano MD Electronic Signature Allergies As of Date: 06/02/2024 Noted Allergy Reaction CAT HAIR EXTRACT 01/29/2005 DOG HAIR 01/29/2005 DUST 01/29/2005 FELDENE (PIROXICAM) 01/29/2005 Comments: BRUISING GRASS POLLEN 01/29/2005 HORSE HAIR AND DANDER 01/29/2005 MOLD 01/29/2005 SELDANE 05/10/2023 14 - Other: See Comments Comments: Heart palpitations TREES 01/29/2005 Date Reviewed: 06/02/2024 Reviewed by: Diana Arriaga OCCA - Fully Assessed Reason for Visit: Follow Up [171] Knee Replacement [363] Primary Visit Diagnosis:Aftercare following left knee joint replacement surgery [Z47.1, Z96.652] Prescriptions as of 06/30/2024 - traZODone (DESYREL) 50 mg tablet Take 1-2 tablets by mouth daily at bedtime. - estradiol (ESTRACE) 1 mg tablet Take 1 tablet by mouth once daily. - amoxicillin (AMOXIL) 500 mg capsule Take 4 capsules by mouth one hour prior to dental cleaning/procedure - estradiol (ESTRACE) 1 mg tablet Take 1 tablet by mouth once daily. - NAPROXEN ORAL Take by mouth. - benzonatate (TESSALON PERLE) 100 mg capsule Take 2 capsules by mouth three times a day as needed. - cyclobenzaprine (FLEXERIL) 10 mg tablet Take 1 tablet by mouth three times a day as needed for muscle spasm. - ondansetron orally disintegrating (ZOFRAN ODT) 8 mg disintegrating tablet Take 1 tablet by mouth every 8 hours as needed for nausea/vomiting. - buPROPion XL (WELLBUTRIN XL) 300 mg 24 hr tablet Take 1 tablet by mouth once daily. - fexofenadine (TELLY) 180 mg tablet Take 1 tablet by mouth once daily. - omeprazole (PRILOSEC) 20 mg capsule Take 1 capsule by mouth once daily. - ibuprofen (MOTRIN) 600 mg tablet Take 600 mg by mouth every 6 hours. - acetaminophen (TYLENOL) 500 mg tablet Take 2 tablets by mouth every 8 hours as needed for pain. - albuterol HFA (PROVENTIL HFA, VENTOLIN HFA) 90 mcg/actuation inhaler Inhale 2 Puffs as instructed every 4 hours as needed (for cough, wheezing, chest tightness or shortness of breath. Use with spacer. ). - clobetasol (TEMOVATE) 0.05 % ointment Apply selectively to spots or lesions of eczematous and psoriasiform dermatitis of elbows and lower legs: once to twice per day for up to 2-4 weeks or less as needed until clear and then try to stop or taper off to a bland emollient cream such as CeraVe cream (or Cetaphil cream) as able. AVOID deep fold areas, face, eyes, and eyelids with the Clobetasol. - multivit-min/ferrous fumarate (MULTI VITAMIN ORAL) Take 1 tablet by mouth once daily. Patient should start on May 13, 2023. - LORazepam (ATIVA (more content not included)... Normal [facility] XR KNEE 3V AP/LAT/MERCHANT L Ton 06-02-2024 XR KNEE 3V AP/LAT/MERCHANT LT * * *Final Report* * * DATE OF EXAM: Jun 02 2024 11:22AM AD[facility] 5208 - XR KNEE 3V AP/LAT/MERCHANT LT / PROCEDURE REASON: M25.562-Left knee pain, unspecified chronicity * * * * Physician Interpretation * * * * PROCEDURE: Left knee INDICATION: Left knee pain, unspecified chronicity .Follow-up for left knee replacement TECHNIQUE: XR KNEE 3V AP/LAT/MERCHANT LT COMPARISON: 01/26/2024 FINDINGS: The total knee arthroplasty remains in satisfactory position. No periprosthetic lucency or fracture. No significant joint effusion. IMPRESSION: Stable TKA Tobacco Conditioner: TAMIKA Transcribe Date/Time: Jun 04 2024 9:17A Dictated by : ARMANDO OLIVA MD This examination was interpreted and the report reviewed and electronically signed by: ARMANDO OLIVA MD on Jun 04 2024 9:18AM EST [id number] N [facility] CNOVon 03-28-2024 CNOV Office Visit (INTMWS ) DORIS GRACE ([id number]) 1970 F [facility] Date Time Provider Department 03/28/24 12:40 PM ARA CASSIDY INTMWS During your visit today, we recorded the following information about you: Temperature Pulse Blood pressure 98.3 degrees 88/minute 130/82 Ara Cassidy, MORA.ASSOCIATE MERCHANDISE PLANNER 03/28/2024 12:44 PM Signed CC: Patient presents with: Sinusitis HPI: Doris Grace is a 53 year old female who presents to the office with above complaint Symptoms began 8 days ago and are about the same Symptoms include: Temperature elevation: No Chills: No Cough: Yes non-productive Shortness of breath: No Fatigue: Yes Muscle aches: No Headache: Yes New loss of smell or taste: No Sore throat: Yes Nasal congestion: Yes Rhinorrhea: Yes with yellow mucus Nausea and/or vomiting: No Diarrhea: No Other Associated symptoms: none. PMH: seasonal/environmenta l allergies OTC meds/remedies that patient has tried: OTC cold medicine- Nyquil and Sudafed. Review of Systems See HPI PAST MEDICAL HISTORY Diagnosis Date Abdominal pain, epigastric Abdominal pain, right lower quadrant Adjustment disorder with depressed mood Allergic rhinitis due to other allergen Esophagitis, unspecified Exercise-induced asthma possible, no spirometry in past Internal hemorrhoids without mention of complication Irritable bowel syndrome PMH - PAST MEDICAL HISTORY OF acme Superficial injury of hip, thigh, leg, and ankle ACL/MCL PARTIALLY TORN Temporomandibular joint sounds on opening and/or closing the jaw PAST SURGICAL HISTORY Procedure Laterality Date ARTHROSCOPY KNEE DIAGNOSTIC W/WO SYNOVIAL BX SPX Left 03/2017 Arthroscopy, knee COLONOSCOPY FLX DX W/COLLJ SPEC WHEN PFRMD 11/23/2005 Normal COLONOSCOPY FLX DX W/COLLJ SPEC WHEN PFRMD 09/23/2020 EGD TRANSORAL BIOPSY SINGLE/MULTIPLE 12/19/2008 Gastritis ESOPHAGOGASTRODUODENO SCOPY TRANSORAL DIAGNOSTIC 09/23/2020 LAPS ABD PRTMANDOMENTUM DX W/WO SPEC BR/WA SPX Laparoscopy for endometriosis LAPS ABD PRTMANDOMENTUM DX W/WO SPEC BR/WA SPX Laparoscopy for endometriosis REM LESION FACE,EAR,EYEL <5MM 06/30/2006 EXCISION LESION NASAL BRIDGE REM LESION FACE,EAR,EYEL <5MM 06/30/2006 LEFT INNER CANTHUS TOTAL ABDOMINAL HYSTERECT W/WO RMVL TUBE OVARY 2004 Hysterectomy for endometriosis, GABRIEL and BSO TOTAL KNEE REPLACEMENT Left 05/10/2023 ALLERGIES Cat Hair Extract, Dog Hair, Dust, Feldene [Piroxicam], Grass Pollen, Horse Hair And Dander, Mold, Seldane, and Trees MEDICATIONS traZODone (DESYREL) 50 mg tablet Take 1-2 tablets by mouth daily at bedtime. estradiol (ESTRACE) 1 mg tablet Take 1 tablet by mouth once daily. amoxicillin (AMOXIL) 500 mg capsule Take 4 capsules by mouth one hour prior to dental cleaning/procedure estradiol (ESTRACE) 1 mg tablet Take 1 tablet by mouth once daily. NAPROXEN ORAL Take by mouth. benzonatate (TESSALON PERLE) 100 mg capsule Take 2 capsules by mouth three times a day as needed. cyclobenzaprine (FLEXERIL) 10 mg tablet Take 1 tablet by mouth three times a day as needed for muscle spasm. ondansetron orally disintegrating (ZOFRAN ODT) 8 mg disintegrating tablet Take 1 tablet by mouth every 8 hours as needed for nausea/vomiting. buPROPion XL (WELLBUTRIN XL) 300 mg 24 hr tablet Take 1 tablet by mouth once daily. fexofenadine (TELLY) 180 mg tablet Take 1 tablet by mouth once daily. omeprazole (PRILOSEC) 20 mg capsule Take 1 capsule by mouth once daily. ibuprofen (MOTRIN) 600 mg tablet Take 600 mg by mouth every 6 hours. acetaminophen (TYLENOL) 500 mg tablet Take 2 tablets by mouth every 8 hours as needed for pain. albuterol HFA (PROVENTIL HFA, VENTOLIN HFA) 90 mcg/actuation inhaler Inhale 2 Puffs as instructed every 4 hours as needed (for cough, wheezing, chest tightness or shortness of breath. Use with spacer. ). clobetasol (TEMOVATE) 0.05 % ointment Apply selectively to spots or lesions of eczematous and psoriasiform dermatitis of elbows and lower legs: once to twice per day for up to 2-4 weeks or less as needed until clear and then try to stop or taper off to a bland emollient cream such as CeraVe cream (or Cetaphil cream) as able. AVOID deep fold areas, face, eyes, and eyelids with the Clobetasol. multivit-min/ferrous fumarate (MULTI VITAMIN ORAL) Take 1 tablet by mouth once daily. Patient should start on May 13, 2023. LORazepam (ATIVAN) 0.5 mg tab Take 1 tablet by mouth twice daily as needed. (Patient taking differently: Take 0.5 mg by mouth two times a day as needed (anxiety ).) fluticasone 50 mcg/actuation nasal spray Use 2 Sprays in each nostril once daily. Rinse mouth after use. Cholecalciferol, Vitamin D3, 25 mcg (1,000 unit) cap Take 1,000 Units by mouth once daily. FAMILY HISTORY Problem Relation Age of Onset Hypertension Mother Seizures Mother HISTORY OF Cancer Mo (more content not included)... Normal [facility] COVID AND INFLUENZA A/B AND RSV PCR, ROUTINEon 03-20-2024 SARS-CoV-2 (COVID-19) RNA BRENT+probe Ql (Unsp spec) SARS-COV-2 (AGENT OF COVID-19) RNA: Not detected INFLUENZA A RNA: Not detected INFLUENZA B RNA: Not detected RESPIRATORY SYNCYTIAL VIRUS (RSV) RNA: Not detected Normal [facility] Comment on above: Performed By: #### C VFLRS ####[facility] LABCLIA [id number] [address] OF [facility] CNOVon 01-26-2024 CNOV Office Visit (ORMDNA ) DORIS GRACE ([id number]) 1970 [facility] Date Time Provider Department 01/26/24 1:30 PM EVANGELINA ZAMBRANO During your visit today, we recorded the following information about you: Evangelina Zambrano MD 02/23/2024 10:[address] ZAMBRANO- POST-OP KNEE ========= Post-Op F/U Office Visit ========= Doris Grace presents today for a 8-1/2 months status post Left TKA. Post-operative recovery was uneventful. Patient's rating of condition: improving Comments: Patient reports some mild pain after sitting Does the Pt. still experience pain? PAIN EVALUATION 01/26/2024 1320 Pain Level: 2 Pain Location: Knee-Left Description: Aching;Stiffness Duration Amount of Time: -- ongoing Frequency: Intermittent Intervention/Comfort measure: Positioning;Medicatio n Functional difficulties: Stair climbing Physical Therapy: Yes Pain Medication: Non-narcotic Ambulating without assistance. Medications and Allergies reviewed and verified. ========= EXAM: ========= GEN: AANDO x3, NAD SKIN:Appropriate postop appearance Incision intact Incision well healed LeftKnee: ROM: Flexion/Extension:0 degrees to 115 degrees Pain with ROM:No Mal-alignment: No Effusion: None Tender to palpation of the medial joint line(s). Stability:Anterior/Po sterior- Yes, stable and Varus/Valgus- Yes, stable Quad strength: normal HIP: range of motion no loss ROM NV: intact and Catherine's negative ========= IMAGING: ========= Xrays: Implants are well aligned. Implants are well fixed. There is no evidence of loosening. There is evidence of osteo-integration. There is no evidence of osteolysis. Patella is well positioned. ======= IMPRESSION/PLAN: ======= 53 year old female s/p Left TKA At normal post-operative stage of recovery. Plan: 1. Continue independent range of motion/strengthening exercises 2. Continue total knee precautions including use of antibiotics for dental procedures 3. Follow-up 4 months for repeat clinical evaluation Evangelina Zambrano MD Electronic Signature Allergies As of Date: 01/26/2024 Noted Allergy Reaction CAT HAIR EXTRACT 01/29/2005 DOG HAIR 01/29/2005 DUST 01/29/2005 FELDENE (PIROXICAM) 01/29/2005 Comments: BRUISING GRASS POLLEN 01/29/2005 HORSE HAIR AND DANDER 01/29/2005 MOLD 01/29/2005 SELDANE 05/10/2023 14 - Other: See Comments Comments: Heart palpitations TREES 01/29/2005 Date Reviewed: 01/26/2024 Reviewed by: Diana Arriaga OCCA - Fully Assessed Reason for Visit: Follow Up [171] Knee Replacement [363] Primary Visit Diagnosis:Aftercare following left knee joint replacement surgery [Z47.1, Z96.652] Prescriptions as of 02/23/2024 - amoxicillin (AMOXIL) 500 mg capsule Take 4 capsules by mouth one hour prior to dental cleaning/procedure - estradiol (ESTRACE) 1 mg tablet Take 1 tablet by mouth once daily. - NAPROXEN ORAL Take by mouth. - benzonatate (TESSALON PERLE) 100 mg capsule Take 2 capsules by mouth three times a day as needed. - cyclobenzaprine (FLEXERIL) 10 mg tablet Take 1 tablet by mouth three times a day as needed for muscle spasm. - ondansetron orally disintegrating (ZOFRAN ODT) 8 mg disintegrating tablet Take 1 tablet by mouth every 8 hours as needed for nausea/vomiting. - buPROPion XL (WELLBUTRIN XL) 300 mg 24 hr tablet Take 1 tablet by mouth once daily. - traZODone (DESYREL) 50 mg tablet Take 1-2 tablets by mouth daily at bedtime. - fexofenadine (TELLY) 180 mg tablet Take 1 tablet by mouth once daily. - omeprazole (PRILOSEC) 20 mg capsule Take 1 capsule by mouth once daily. - ibuprofen (MOTRIN) 600 mg tablet Take 600 mg by mouth every 6 hours. - acetaminophen (TYLENOL) 500 mg tablet Take 2 tablets by mouth every 8 hours as needed for pain. - estradiol (ESTRACE) 1 mg tablet Take 1 tablet by mouth once daily. - albuterol HFA (PROVENTIL HFA, VENTOLIN HFA) 90 mcg/actuation inhaler Inhale 2 Puffs as instructed every 4 hours as needed (for cough, wheezing, chest tightness or shortness of breath. Use with spacer. ). - clobetasol (TEMOVATE) 0.05 % ointment Apply selectively to spots or lesions of eczematous and psoriasiform dermatitis of elbows and lower legs: once to twice per day for up to 2-4 weeks or less as needed until clear and then try to stop or taper off to a bland emollient cream such as CeraVe cream (or Cetaphil cream) as able. AVOID deep fold areas, face, eyes, and eyelids with the Clobetasol. - multivit-min/ferrous fumarate (MULTI VITAMIN ORAL) Take 1 tablet by mouth once daily. Patient should start on May 13, 2023. - LORazepam (ATIVAN) 0.5 mg tab Take 1 tablet by mouth twice daily a (more content not included)... Normal [facility] XR KNEE 3V AP/LAT/MERCHANT L Ton 01-26-2024 XR KNEE 3V AP/LAT/MERCHANT LT * * *Final Report* * * DATE OF EXAM: Jan 26 2024 1:15PM ADAM 5208 - XR KNEE 3V AP/LAT/MERCHANT LT / PROCEDURE REASON: M25.562-Left knee pain, unspecified chronicity * * * * Physician Interpretation * * * * EXAMINATION: XR KNEE 3V AP/LAT/MERCHANT LT PATIENT/TECHNOLOGIST PROVIDED HISTORY: f/u left knee CLINICAL INFORMATION: 53 years old Female with Left knee pain, unspecified chronicity TECHNIQUE: XR KNEE 3V AP/LAT/MERCHANT LT Laterality: LEFT Number of different views (projections): 3 COMPARISON: Radiographs 05/24/2023 RESULT: Status post LEFT total knee arthroplasty with metal-backed patellar component unchanged in alignment and position. No periprosthetic lucency or fracture. Images of the RIGHT knee demonstrate tricompartmental osteoarthritis, moderate-severe in the medial compartment. IMPRESSION: Unchanged LEFT total knee arthroplasty. Tobacco Conditioner: TAMIKA Transcribe Date/Time: Jan 29 2024 11:17A Dictated by : FURQUAN BAQUI, DO This examination was interpreted and the report reviewed and electronically signed by: NESSA DIEZ DO on Jan 29 2024 11:18AM EST [id number] Normal [facility] XR Knee AP and Lateral and M mirta 05-24-2023 IMPRESSION: Left total knee arthroplasty without complication. Tobacco Conditioner: TAMIKA Transcribe Date/Time: May 24 2023 2:29P Dictated by : ЕКАТЕРИНА ROMERO MD This examination was interpreted and the report reviewed and electronically signed by: ЕКАТЕРИНА ROMERO MD on May 24 2023 2:30PM EST [facility] * * *Final Report* * * DATE OF EXAM: May 24 2023 1:06PM ADAM 5208 - XR KNEE 3V AP/LAT/MERCHANT LT / PROCEDURE REASON: M25.562-Left knee pain, unspecified chronicity * * * * Physician Interpretation * * * * EXAMINATION / TECHNIQUE: XR KNEE 3V AP/LAT/MERCHANT LT PATIENT/TECHNOLOGIST PROVIDED HISTORY: follow up CLINICAL INFORMATION ( PROVIDED BY ORDERING CLINICIAN) : Left knee pain, unspecified chronicity COMPARISON: 05/10/2023 and 03/03/2022 RESULT: Left total knee arthroplasty with satisfactory alignment. No evidence of loosening or fracture. Small suprapatellar effusion and mild soft tissue swelling, likely postoperative. Resolution of periarticular gas. Unchanged medial compartment osteoarthritis on AP view of the right knee. [facility] Provider, [facility] - 05/24/2023 * * *Final Report* * * DATE OF EXAM: May 24 2023 1:06PM ADAM 5208 - XR KNEE 3V AP/LAT/MERCHANT LT / PROCEDURE REASON: M25.562-Left knee pain, unspecified chronicity * * * * Physician Interpretation * * * * EXAMINATION / TECHNIQUE: XR KNEE 3V AP/LAT/MERCHANT LT PATIENT/TECHNOLOGIST PROVIDED HISTORY: follow up CLINICAL INFORMATION ( PROVIDED BY ORDERING CLINICIAN) : Left knee pain, unspecified chronicity COMPARISON: 05/10/2023 and 03/03/2022 RESULT: Left total knee arthroplasty with satisfactory alignment. No evidence of loosening or fracture. Small suprapatellar effusion and mild soft tissue swelling, likely postoperative. Resolution of periarticular gas. Unchanged medial compartment osteoarthritis on AP view of the right knee. IMPRESSION IMPRESSION: Left total knee arthroplasty without complication. Tobacco Conditioner: PSCB Transcribe Date/Time: May 24 2023 2:29P Dictated by : ЕКАТЕРИНА ROMERO MD This examination was interpreted and the report reviewed and electronically signed by: ЕКАТЕРИНА ROMERO MD on May 24 2023 2:30PM EST [facility] Radiology Study observation (narrative) [facility] XR Knee AP and Lateral and M erchantsOrdered By: Ccf Provider on 05-24-2023 [facility] CNCOon 05-11-2023 CNCO Letter Text Normal [facility] CNTHERAPYon 04-22-2023 CNTHERAPY OT/PT/Speech Visit (LDPT) DORIS GRACE ([id number]) 1970 [facility] Date Time Provider Department 04/22/23 10:45 AM ALEYDA FERRIS LDPT Date Time Provider Department Center 04/22/2023 10:45 AM [id number], CARLA LDPT [facility] Reason for Visit: Appointment Cancelled [1023] Primary Visit Diagnosis:APPOINTMENT CANCELLED Allergies As of Date: 04/22/2023 Noted Allergy Reaction CAT HAIR EXTRACT 01/29/2005 DOG HAIR 01/29/2005 DUST 01/29/2005 FELDENE (PIROXICAM) 01/29/2005 Comments: BRUISING GRASS POLLEN 01/29/2005 HORSE HAIR AND DANDER 01/29/2005 MOLD 01/29/2005 SELDANE [Other] 01/29/2005 Comments: HEART PALP TREES 01/29/2005 Date Reviewed: 02/22/2023 Reviewed by: Medardo Lester PA-C - Fully Assessed Prescriptions as of 04/26/2023 - traMADol (ULTRAM) 50 mg tablet Take 1 tablet by mouth every 8 hours as needed for pain for up to 7 days. - estradiol (ESTRACE) 1 mg tablet Take 1 tablet by mouth once daily. - naltrexone 50 mg tablet Take 1/2 tablet by mouth twice daily. - buPROPion SR (WELLBUTRIN SR) 150 mg 12 hr tablet Take 1 tablet by mouth twice daily. - fexofenadine (TELLY) 180 mg tablet Take 1 tablet by mouth once daily. - albuterol HFA (PROVENTIL HFA, VENTOLIN HFA) 90 mcg/actuation inhaler Inhale 2 Puffs as instructed every 4 hours as needed (for cough, wheezing, chest tightness or shortness of breath. Use with spacer. ). - omeprazole (PRILOSEC) 20 mg capsule Take 1 capsule by mouth once daily. - clobetasol (TEMOVATE) 0.05 % ointment Apply selectively to spots or lesions of eczematous and psoriasiform dermatitis of elbows and lower legs: once to twice per day for up to 2-4 weeks or less as needed until clear and then try to stop or taper off to a bland emollient cream such as CeraVe cream (or Cetaphil cream) as able. AVOID deep fold areas, face, eyes, and eyelids with the Clobetasol. - ondansetron (ZOFRAN) 4 mg tablet Take 4 mg by mouth every 8 hours as needed for nausea/vomiting. - cyclobenzaprine (FLEXERIL) 10 mg tablet Take 1 tablet by mouth three times daily as needed for Muscle Spasm. - promethazine (PHENERGAN) 25 mg tablet Take 1/2 - 1 tablet by mouth every 4 hours as needed for nausea - multivit-min/ferrous fumarate (MULTI VITAMIN ORAL) Take by mouth once daily. - nystatin (MYCOSTATIN) powder Apply 1 application to affected area four times daily. - acetaminophen (TYLENOL) 325 mg tablet Take 650 mg by mouth every 6 hours as needed. - LORazepam (ATIVAN) 0.5 mg tab Take 1 tablet by mouth twice daily as needed. - fluticasone 50 mcg/actuation nasal spray Use 2 Sprays in each nostril once daily. Rinse mouth after use. - Cholecalciferol, Vitamin D3, 25 mcg (1,000 unit) cap Take 1,000 Units by mouth once daily. Normal [facility] XR Knee - left 4 Viewson IMPRESSION: Stable degenerative changes with no acute process seen. Tobacco Conditioner: TAMIKA Transcribe Date/Time: Feb 22 2023 5:09P Dictated by : JOSE MCDONALD MD This examination was interpreted and the report reviewed and electronically signed by: JOSE MCDONALD MD on Feb 22 2023 5:11PM [facility] * * *Final Report* * * DATE OF EXAM: Feb 22 2023 2:01PM ADAM 5202 - XR KNEE 4V AP/PA BOTH+LAT/DOUG LT / PROCEDURE REASON: M25.562-Left knee pain, unspecified chronicity * * * * Physician Interpretation * * * * History: Left knee pain FINDINGS: AP, PA, and merchant views of both knees, and a lateral view of the left knee, have been obtained. Correlation is made with prior study of 03/03/2022. Images of the left knee demonstrate [id number] medial femoral tibial joint space narrowing. There is femoral patellar joint space narrowing and osteophyte formation. No acute fractures seen. There is no joint effusion. Included images of the right knee demonstrate medial femoral tibial joint space narrowing and mild spurring, too much lesser degree than is seen on the left. There is mild femoral patellar joint space narrowing laterally with mild patellar spurring. No acute process is seen. [facility] Provider, [facility] - 02/22/2023 * * *Final Report* * * DATE OF EXAM: Feb 22 2023 2:01PM O 5202 - XR KNEE 4V AP/PA BOTH+LAT/DOUG LT / PROCEDURE REASON: M25.562-Left knee pain, unspecified chronicity * * * * Physician Interpretation * * * * History: Left knee pain FINDINGS: AP, PA, and merchant views of both knees, and a lateral view of the left knee, have been obtained. Correlation is made with prior study of 03/03/2022. Images of the left knee demonstrate [id number] medial femoral tibial joint space narrowing. There is femoral patellar joint space narrowing and osteophyte formation. No acute fractures seen. There is no joint effusion. Included images of the right knee demonstrate medial femoral tibial joint space narrowing and mild spurring, too much lesser degree than is seen on the left. There is mild femoral patellar joint space narrowing laterally with mild patellar spurring. No acute process is seen. IMPRESSION IMPRESSION: Stable degenerative changes with no acute process seen. Tobacco Conditioner: [facility] Transcribe Date/Time: Feb 22 2023 5:09P Dictated by : JOSE MCDONALD MD This examination was interpreted and the report reviewed and electronically signed by: JOSE MCDONALD MD on Feb 22 2023 5:11PM EST [facility] Radiology Study observation (narrative) [facility] XR Knee - left 4 ViewsOrdere d By: Ccf Provider on 02-22-2023 [facility] STEFFI DIAG W SAMUEL LEFTon 08-25 [facility] US BREAST LTD LEFTon 2 023 [facility] STEFFI SCREENING W TOMOon 07-16 [facility] XR Knee - left 4 Viewson IMPRESSION: Findings are suggestive of degenerative changes/osteoarthriti s in the left knee. Tobacco Conditioner: [facility] Transcribe Date/Time: Mar 04 2022 9:45A Dictated by : GRAY GAINES MD This examination was interpreted and the report reviewed and electronically signed by: GRAY GAINES MD on Mar 04 2022 9:48AM [facility] DIVISION OF RADIOLOGY * * *Final Report* * * DATE OF EXAM: Mar 03 2022 2:45PM WOX 5202 - XR KNEE 4V AP/PA BOTH+LAT/DOUG LT / PROCEDURE REASON: multiple diagnoses * * * * Physician Interpretation * * * * EXAM TITLE: XR KNEE 4V AP/PA BOTH+LAT/DOUG LT EXAM DATE/TIME: 03/03/2022 2:45 PM COMPARISON: None. CLINICAL INDICATION/HISTORY: Chronic left knee pain. TECHNIQUE: AP/PA, lateral and sunrise views of the left knee are presented. FINDINGS: No acute fracture or subluxation seen. Bone on bone significant medial compartmental joint space narrowing is demonstrated. There appears be varus deformity Tricompartmental osteophyte formation is present. There appears be a loose body or accessory bone. There is no evidence of joint effusion. The mineralization of the bones is normal. There is no significant soft tissue swelling. DIVISION OF RADIOLOGY Provider, Gregoria Barcenas [facility] - 03/04/2022 * * *Final Report* * * DATE OF EXAM: Mar 03 2022 2:45PM WOX 5202 - XR KNEE 4V AP/PA BOTH+LAT/DOUG LT / PROCEDURE REASON: multiple diagnoses * * * * Physician Interpretation * * * * EXAM TITLE: XR KNEE 4V AP/PA BOTH+LAT/DOUG LT EXAM DATE/TIME: 03/03/2022 2:45 PM COMPARISON: None. CLINICAL INDICATION/HISTORY: Chronic left knee pain. TECHNIQUE: AP/PA, lateral and sunrise views of the left knee are presented. FINDINGS: No acute fracture or subluxation seen. Bone on bone significant medial compartmental joint space narrowing is demonstrated. There appears be varus deformity Tricompartmental osteophyte formation is present. There appears be a loose body or accessory bone. There is no evidence of joint effusion. The mineralization of the bones is normal. There is no significant soft tissue swelling. IMPRESSION IMPRESSION: Findings are suggestive of degenerative changes/osteoarthriti s in the left knee. Tobacco Conditioner: TAMIKA Transcribe Date/Time: Mar 04 2022 9:45A Dictated by : GRAY GAINES MD This examination was interpreted and the report reviewed and electronically signed by: GRAY GAINES MD on Mar 04 2022 9:48AM EST [facility] XR Knee - left 4 ViewsOrdere d By: Ccf Provider on 03-04-2022 [facility] XR Knee - left 4 Viewson Radiology Study observation (narrative) [facility] XR SHOULDER GENERAL 3V OR MO RE AP/TRUE AP/OTHER RIGHTon 08-11-2021 [facility] D-Dimer Quantitative (DVT/PE )on 05-14-2021 D-DIMER QUANT 0.42 FEU/ug/m Normal 0.27-0.49 [facility] Comment on above: Result Comment: NORM AL D-Dimer level (<0.50) indicates no DVT or PE. Performed By: #### L 300.8000 #### [facility] [address] [place], [address] Large Joint Arthro/Inj: R kn ee joint [facility] Vital Signs Date Time Vital Sign Value Performing Clinician Michael humphries 10-31-2024 12:53-0400 Body mass index (BMI) [Ratio] 35.93 kg/m2 Heena Eyal 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 Work Phone: [facility] 10-31-2024 12:53-0400 Body weight 92 kg Heena Eyal 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 Work Phone: [facility] 10-31-2024 12:53-0400 Diastolic blood pressure 85 mm[Hg] Heena Eyal 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 Work Phone: [facility] 10-31-2024 12:53-0400 Heart rate 79 /min Heena Eyal 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 Work Phone: [facility] 10-31-2024 12:53-0400 SaO2% (BldA) [Mass fraction] 98 % Heena Eyal 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 Work Phone: [facility] 10-31-2024 12:53-0400 Systolic blood pressure 124 mm[Hg] Heena Eyal 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 Work Phone: [facility] 03-28-2024 12:14-0500 Body temperature 98.29 [degF] Ara Darline 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 Work Phone: [facility] 03-28-2024 12:14-0500 Diastolic blood pressure 82 mm[Hg] Ara Darline 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 Work Phone: [facility] 03-28-2024 12:14-0500 Heart rate 88 /min Ara Darline 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 Work Phone: [facility] 03-28-2024 12:14-0500 SaO2% (BldA) [Mass fraction] 98 % Ara Darline 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 Work Phone: [facility] 03-28-2024 12:14-0500 Systolic blood pressure 130 mm[Hg] Ara Cassidy 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 Work Phone: [facility] 11-19-2023 11:47-0400 Body mass index (BMI) [Ratio] 34.97 kg/m2 Cherry Latoya 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 Work Phone: [facility] 11-19-2023 11:47-0400 Body temperature 97.81 [degF] Cherry Latoya 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 Work Phone: [facility] 11-19-2023 11:47-0400 Body weight 89.54 kg Cherry Latoya 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 Work Phone: [facility] [place] 11-19-2023 11:47-0400 Diastolic blood pressure 84 mm[Hg] Cherry Latoya 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 Work Phone: [facility] [place] 11-19-2023 11:47-0400 Heart rate 79 /min Cherry Latoya 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 Work Phone: [facility] [place] 11-19-2023 11:47-0400 Respiratory rate 16 /min Cherry Latoya 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 Work Phone: [facility] [place] 11-19-2023 11:47-0400 SaO2% (BldA) [Mass fraction] 98 % Cherry Latoya 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 Work Phone: [facility] [place] 11-19-2023 11:47-0400 Systolic blood pressure 122 mm[Hg] Cherry Latoya 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 Work Phone: [facility] [place] 10-22-2023 09:17-0400 Body height 160 cm Heena Eyal 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 Work Phone: [facility] [place] 10-22-2023 09:17-0400 Body mass index (BMI) [Ratio] 33.83 kg/m2 Heena Eyal 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 Work Phone: [facility] [place] 10-22-2023 09:17-0400 Body weight 86.64 kg Heena Eyal 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 Work Phone: [facility] [place] 10-22-2023 09:17-0400 Diastolic blood pressure 74 mm[Hg] Heena Eyal 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 Work Phone: [facility] [place] 10-22-2023 09:17-0400 Heart rate 86 /min Heena Eyal 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 Work Phone: [facility] [place] 10-22-2023 09:17-0400 Respiratory rate 12 /min Heena Eyal 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 Work Phone: [facility] [place] 10-22-2023 09:17-0400 SaO2% (BldA) [Mass fraction] 98 % Heena Eyal 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 Work Phone: [facility] [place] 10-22-2023 09:17-0400 Systolic blood pressure 118 mm[Hg] Heena Eyal 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 Work Phone: [facility] [place] 05-26-2023 09:53-0500 Body temperature 97.5 [degF] Marii Peraza PT Work Phone: [facility] [place] 05-26-2023 09:53-0500 Diastolic blood pressure 78 mm[Hg] Marii Peraza PT Work Phone: [facility] [place] 05-26-2023 09:53-0500 Heart rate 80 /min Marii Peraza PT Work Phone: [facility] [place] 05-26-2023 09:53-0500 Respiratory rate 16 /min Marii Peraza PT Work Phone: [facility] [place] 05-26-2023 09:53-0500 SaO2% (BldA) [Mass fraction] 97 % Marii Peraza PT Work Phone: [facility] [place] 05-26-2023 09:53-0500 Systolic blood pressure 130 mm[Hg] Marii Peraza PT Work Phone: [facility] [place] 05-25-2023 15:41-0500 Body temperature 98.29 [degF] Lora Eric COMMERCIAL REAL ESTATE SALES MANAGER Work Phone: [facility] [place] 05-25-2023 15:41-0500 Diastolic blood pressure 88 mm[Hg] Lora Eric COMMERCIAL [employer] ESTATE SALES MANAGER Work Phone: [facility] [place] 05-25-2023 15:41-0500 Heart rate 88 /min Lora Eric COMMERCIAL [employer] ESTATE SALES MANAGER Work Phone: [facility] [place] 05-25-2023 15:41-0500 Respiratory rate 18 /min Lora Eric COMMERCIAL REAL ESTATE SALES MANAGER Work Phone: [facility] [place] 05-25-2023 15:41-0500 SaO2% (BldA) [Mass fraction] 99 % Lora Eric COMMERCIAL REAL ESTATE SALES MANAGER Work Phone: [facility] [place] 05-25-2023 15:41-0500 Systolic blood pressure 118 mm[Hg] Lora Eric COMMERCIAL REAL ESTATE SALES MANAGER Work Phone: [facility] [place] 05-21-2023 09:10-0500 Body temperature 97.5 [degF] Lora Eric COMMERCIAL REAL ESTATE SALES MANAGER Work Phone: [facility] [place] 05-21-2023 09:10-0500 Diastolic blood pressure 76 mm[Hg] Lora Eric COMMERCIAL REAL ESTATE SALES MANAGER Work Phone: [facility] [place] 05-21-2023 09:10-0500 Heart rate 81 /min Lora Eric COMMERCIAL REAL ESTATE SALES MANAGER Work Phone: [facility] [place] 05-21-2023 09:10-0500 Respiratory rate 18 /min Lora Eric COMMERCIAL REAL ESTATE SALES MANAGER Work Phone: [facility] [place] 05-21-2023 09:10-0500 SaO2% (BldA) [Mass fraction] 98 % Lora Eric COMMERCIAL REAL ESTATE SALES MANAGER Work Phone: [facility] [place] 05-21-2023 09:10-0500 Systolic blood pressure 118 mm[Hg] Lora Eric COMMERCIAL REAL ESTATE SALES MANAGER Work Phone: [facility] [place] 05-19-2023 09:04-0500 Body temperature 97.59 [degF] Lora Eric COMMERCIAL REAL ESTATE SALES MANAGER Work Phone: [facility] [place] 05-19-2023 09:04-0500 Diastolic blood pressure 85 mm[Hg] Lora Eric COMMERCIAL REAL ESTATE SALES MANAGER Work Phone: [facility] [place] 05-19-2023 09:04-0500 Heart rate 93 /min Lora Eric COMMERCIAL REAL ESTATE SALES MANAGER Work Phone: [facility] [place] 05-19-2023 09:04-0500 Respiratory rate 18 /min Lora Eric COMMERCIAL REAL ESTATE SALES MANAGER Work Phone: [facility] [place] 05-19-2023 09:04-0500 SaO2% (BldA) [Mass fraction] 97 % Lora Eric COMMERCIAL REAL ESTATE SALES MANAGER Work Phone: [facility] [place] 05-19-2023 09:04-0500 Systolic blood pressure 120 mm[Hg] Lora Eric COMMERCIAL REAL ESTATE SALES MANAGER Work Phone: [facility] [place] 05-17-2023 09:05-0500 Body temperature 98.4 [degF] Lora Eric COMMERCIAL REAL ESTATE SALES MANAGER Work Phone: [facility] [place] 05-17-2023 09:05-0500 Diastolic blood pressure 78 mm[Hg] Lora Eric COMMERCIAL REAL ESTATE SALES MANAGER Work Phone: [facility] [place] 05-17-2023 09:05-0500 Heart rate 74 /min Lora Eric COMMERCIAL REAL ESTATE SALES MANAGER Work Phone: [facility] [place] 05-17-2023 09:05-0500 Respiratory rate 18 /min Lora Eric COMMERCIAL REAL ESTATE SALES MANAGER Work Phone: [facility] [place] 05-17-2023 09:05-0500 SaO2% (BldA) [Mass fraction] 99 % Lora Eric COMMERCIAL REAL ESTATE SALES MANAGER Work Phone: [facility] [place] 05-17-2023 09:05-0500 Systolic blood pressure 124 mm[Hg] Lora Eric COMMERCIAL REAL ESTATE SALES MANAGER Work Phone: [facility] [place] 05-15-2023 14:43-0500 Body temperature 98.49 [degF] Sonu Obrien COMMERCIAL REAL ESTATE SALES MANAGER Work Phone: [facility] [place] 05-15-2023 14:43-0500 Diastolic blood pressure 75 mm[Hg] Sonu Murryler COMMERCIAL [employer] ESTATE SALES MANAGER Work Phone: [facility] [place] 05-15-2023 14:43-0500 Heart rate 75 /min Sonu Murryler COMMERCIAL [employer] ESTATE SALES MANAGER Work Phone: [facility] [place] 05-15-2023 14:43-0500 Respiratory rate 18 /min Sonu Obrien COMMERCIAL REAL ESTATE SALES MANAGER Work Phone: [facility] [place] 05-15-2023 14:43-0500 SaO2% (BldA) [Mass fraction] 97 % Sonu Murryler COMMERCIAL REAL ESTATE SALES MANAGER Work Phone: [facility] [place] 05-15-2023 14:43-0500 Systolic blood pressure 122 mm[Hg] Sonu Obrien COMMERCIAL REAL ESTATE SALES MANAGER Work Phone: [facility] [place] 05-13-2023 10:14-0500 Body temperature 97.5 [degF] Marii Peraza PT Work Phone: [facility] [place] 05-13-2023 10:14-0500 Diastolic blood pressure 80 mm[Hg] Marii Fajardo-Román PT Work Phone: [facility] [place] 05-13-2023 10:14-0500 Heart rate 86 /min Marii Peraza PT Work Phone: [facility] [place] 05-13-2023 10:14-0500 Respiratory rate 18 /min Marii Peraza PT Work Phone: [facility] [place] 05-13-2023 10:14-0500 SaO2% (BldA) [Mass fraction] 98 % Marii Peraza PT Work Phone: [facility] [place] 05-13-2023 10:14-0500 Systolic blood pressure 128 mm[Hg] Marii Halderman-France PT Work Phone: [facility] [place] 12-17-2022 11:22-0400 Body weight 89 kg Ana Laura Jordan APRN.ASSOCIATE MERCHANDISE PLANNER Work Phone: [facility] [place] 12-17-2022 11:22-0400 Diastolic blood pressure 80 mm[Hg] Ana Laura Jordan 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 Work Phone: [facility] [place] 12-17-2022 11:22-0400 Heart rate 93 /min Ana Laura Jordan APRN.ASSOCIATE MERCHANDISE PLANNER Work Phone: [facility] [place] 12-17-2022 11:22-0400 SaO2% (BldA) [Mass fraction] 97 % Ana Laura Jordan APRN.ASSOCIATE MERCHANDISE PLANNER Work Phone: [facility] [place] 12-17-2022 11:22-0400 Systolic blood pressure 132 mm[Hg] Ana Laura Jordan APRN.ASSOCIATE MERCHANDISE PLANNER Work Phone: [facility] [place] 12-04-2022 11:50-0400 Diastolic blood pressure 96 mm[Hg] Heena Birch APRN.ASSOCIATE MERCHANDISE PLANNER Work Phone: [facility] [place] 12-04-2022 11:50-0400 Heart rate 75 /min Heena Birch APRN.ASSOCIATE MERCHANDISE PLANNER Work Phone: [facility] [place] 12-04-2022 11:50-0400 SaO2% (BldA) [Mass fraction] 98 % Heena Birch 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 Work Phone: [facility] [place] 12-04-2022 11:50-0400 Systolic blood pressure 141 mm[Hg] Heena Birch 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 Work Phone: [facility] [place] 10-22-2022 11:25-0400 Body weight 93.8 kg Ana Laura Jordan APRN.ASSOCIATE MERCHANDISE PLANNER Work Phone: [facility] [place] 10-22-2022 11:25-0400 Diastolic blood pressure 78 mm[Hg] Ana Laura Jordan APRN.ASSOCIATE MERCHANDISE PLANNER Work Phone: [facility] [place] 10-22-2022 11:25-0400 Heart rate 88 /min Ana Laura Jordan APRN.ASSOCIATE MERCHANDISE PLANNER Work Phone: [facility] [place] 10-22-2022 11:25-0400 SaO2% (BldA) [Mass fraction] 96 % Ana Laura Jordan APRN.ASSOCIATE MERCHANDISE PLANNER Work Phone: [facility] [place] 10-22-2022 11:25-0400 Systolic blood pressure 124 mm[Hg] Ana Laura Jordan APRN.ASSOCIATE MERCHANDISE PLANNER Work Phone: [facility] [place] 07-30-2022 10:48-0400 Body height 158.8 cm Ana Laura Jordan APRN.ASSOCIATE MERCHANDISE PLANNER Work Phone: [facility] [place] 07-30-2022 10:48-0400 Body weight 98.88 kg Ana Laura Jordan APRN.ASSOCIATE MERCHANDISE PLANNER Work Phone: [facility] [place] 07-30-2022 10:48-0400 Diastolic blood pressure 72 mm[Hg] Ana Laura Jordan APRN.ASSOCIATE MERCHANDISE PLANNER Work Phone: [facility] [place] 07-30-2022 10:48-0400 Heart rate 84 /min Ana Laura Jordan APRN.ASSOCIATE MERCHANDISE PLANNER Work Phone: [facility] [place] 07-30-2022 10:48-0400 Systolic blood pressure 116 mm[Hg] Ana Laura Jordan APRN.ASSOCIATE MERCHANDISE PLANNER Work Phone: [facility] [place] 07-14-2022 11:54-0400 Body temperature 97.11 [degF] NA Matamoros PA-C Work Phone: [facility] [place] 07-14-2022 11:54-0400 Diastolic blood pressure 74 mm[Hg] NA Matamoros PA-C Work Phone: [facility] [place] 07-14-2022 11:54-0400 Heart rate 61 /min NA Matamoros PA-C Work Phone: [facility] [place] 07-14-2022 11:54-0400 Respiratory rate 16 /min NA Matamoros PA-C Work Phone: [facility] [place] 07-14-2022 11:54-0400 SaO2% (BldA) [Mass fraction] 97 % NA Matamoros PA-C Work Phone: [facility] [place] 07-14-2022 11:54-0400 Systolic blood pressure 122 mm[Hg] NA Matamoros PA-C Work Phone: [facility] [place] 06-28-2022 11:54-0400 Body temperature 98.71 [degF] Bob Tran APRN.ASSOCIATE MERCHANDISE PLANNER Work Phone: [facility] [place] 06-28-2022 11:54-0400 Diastolic blood pressure 68 mm[Hg] Bob Marc 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 Work Phone: [facility] [place] 06-28-2022 11:54-0400 Heart rate 115 /min Bob Marc 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 Work Phone: [facility] [place] 06-28-2022 11:54-0400 Respiratory rate 18 /min Bob Marc 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 Work Phone: [facility] [place] 06-28-2022 11:54-0400 SaO2% (BldA) [Mass fraction] 98 % Bob Marc 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 Work Phone: [facility] [place] 06-28-2022 11:54-0400 Systolic blood pressure 124 mm[Hg] Bob Marc 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 Work Phone: [facility] [place] 05-26-2022 11:02-0500 Diastolic blood pressure 70 mm[Hg] NA Matamoros PA-C Work Phone: [facility] [place] 05-26-2022 11:02-0500 Heart rate 72 /min NA Matamoros PA-C Work Phone: [facility] [place] 05-26-2022 11:02-0500 Respiratory rate 16 /min NA Matamoros PA-C Work Phone: [facility] [place] 05-26-2022 11:02-0500 SaO2% (BldA) [Mass fraction] 98 % NA Matamoros PA-C Work Phone: [facility] [place] 05-26-2022 11:02-0500 Systolic blood pressure 118 mm[Hg] NA Matamoros PA-C Work Phone: [facility] [place] 01-27-2022 08:08-0400 Diastolic blood pressure 70 mm[Hg] NA Matamoros PA-C Work Phone: [facility] [place] 01-27-2022 08:08-0400 Heart rate 91 /min NA Matamoros PA-C Work Phone: [facility] [place] 01-27-2022 08:08-0400 Respiratory rate 16 /min NA Matamoros PA-C Work Phone: [facility] [place] 01-27-2022 08:08-0400 SaO2% (BldA) [Mass fraction] 97 % NA Matamoros PA-C Work Phone: [facility] [place] 01-27-2022 08:08-0400 Systolic blood pressure 128 mm[Hg] NA Matamoros PA-C Work Phone: [facility] [place] 07-17-2021 13:40-0400 Diastolic blood pressure 72 mm[Hg] NA Matamoros PA-C Work Phone: [facility] [place] 07-17-2021 13:40-0400 Heart rate 78 /min NA Matamoros PA-C Work Phone: [facility] [place] 07-17-2021 13:40-0400 Respiratory rate 16 /min NA Matamoros PA-C Work Phone: [facility] [place] 07-17-2021 13:40-0400 SaO2% (BldA) [Mass fraction] 98 % NA Matamoros PA-C Work Phone: [facility] [place] 07-17-2021 13:40-0400 Systolic blood pressure 128 mm[Hg] NA Matamoros PA-C Work Phone: [facility] [place] Encounters Encounter Date Encounter Type Care Provider Facility Start: 12-26-2024 End: 12-26-2024 Patient encounter procedure Vernon Nicole OD Work Phone: Ophthalmology Comment on above: Myopia, bilateral (P rimary Dx); Presbyopia; Regular astigmatism of both eyes Start: 12-26-2024 End: 12-26-2024 ambulatory HEENA BIRCH Facility:[facility] Start: 12-05-2024 ambulatory HEENA BIRCH Facility:[facility] Start: 12-05-2024 End: 12-05-2024 Subsequent hospital visit by physician [facility] Work Phone: Radiology Start: 11-24-2024 End: 11-24-2024 Telephone encounter Heena Birch APRN.ASSOCIATE MERCHANDISE PLANNER Work Phone: [facility] Comment on above: Refill Request Start: 11-22-2024 End: 11-22-2024 Refill Heena Birch APRN.ASSOCIATE MERCHANDISE PLANNER Work Phone: [facility] Comment on above: Med Change Request Start: 11-03-2024 End: 11-03-2024 Follow-up encounter Heena Birch APRN.ARAM Work Phone: [facility] Start: 10-31-2024 End: 10-31-2024 Patient encounter procedure Heena Thorper 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 Work Phone: [facility] [place] Comment on above: Anxiety (Primary Dx) ; Adjustment disorder with mixed anxiety and depressed mood; Hot flashes due to menopause; Elevated blood pressure reading without diagnosis of hypertension Start: 10-31-2024 End: 10-31-2024 ambulatory HEENA THORPER Facility:[facility] Start: 10-31-2024 ambulatory HEENA BIRCH Facility:[facility] Start: 10-31-2024 End: 10-31-2024 Subsequent hospital visit by physician Screen Mammo [facility] Comment on above: Encounter for screen ing mammogram for malignant neoplasm of breast [Z12.31] Start: 08-02-2024 End: 08-02-2024 Get Medical Advice [facility] Provider [facility] Comment on above: Mammogram order Start: 08-01-2024 End: 08-01-2024 ambulatory Beverly Arce RN [facility]inated Care Start: 08-01-2024 End: 08-01-2024 Coordination of care plan Beverly Arce RN [facility] Coordinated Care Comment on above: CARE COORDINATION Start: 07-17-2024 End: 07-18-2024 Refill Heena Bicrh APRN.ASSOCIATE MERCHANDISE PLANNER Work Phone: [facility] [place] Comment on above: Refill Request Start: 06-02-2024 End: 06-02-2024 Patient encounter procedure Evangelina Zambrano MD Work Phone: Orthopaedics Comment on above: Aftercare following left knee joint replacement surgery (Primary Dx) Start: 06-02-2024 End: 06-02-2024 ambulatory UNKNOWN PROVIDER Facility:[facility] Start: 06-02-2024 End: 06-02-2024 Subsequent hospital visit by physician [facility] Shelbie Mosher Work Phone: Radiology Comment on above: Left knee pain, unsp ecified chronicity [M25.562] Start: 03-28-2024 End: 03-28-2024 ambulatory ARA CASSIDY Facility:[facility] Start: 03-28-2024 End: 03-28-2024 Patient encounter procedure Ara Shaver Darline 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 Work Phone: Internal Medicine [place] Comment on above: Acute non-recurrent maxillary sinusitis (Primary Dx) Start: 03-20-2024 End: 03-20-2024 Orders Only Camilla Domínguez APRN.RIVER BOAT CAPTAIN Work Phone: [facility] [place] Comment on above: Upper respiratory tr act infection, unspecified type (Primary Dx) Refill Request Start: 03-17-2024 End: 03-20-2024 Refill Camilla Domínguez APRN.RIVER BOAT CAPTAIN Work Phone: [facility] [place] Comment on above: Refill Request ([facility] managed refill/) Start: 03-16-2024 End: 03-17-2024 Refill Heena Birch APRN.ASSOCIATE MERCHANDISE PLANNER Work Phone: [facility] Medicine [place] Comment on above: Refill Request Start: 01-31-2024 End: 01-31-2024 Refill Heena Birch 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 Work Phone: [facility] Medicine [place] Comment on above: Refill Request Start: 01-26-2024 End: 01-26-2024 Patient encounter procedure Evangelina Zambrano MD Work Phone: Orthopaedics Comment on above: Aftercare following left knee joint replacement surgery (Primary Dx) Start: 01-26-2024 End: 01-26-2024 ambulatory HEENA BIRCH Facility:[facility] Start: 01-26-2024 End: 01-26-2024 Subsequent hospital visit by physician [employer] Shelbie Mosher Work Phone: Radiology Comment on above: Left knee pain, unsp ecified chronicity [M25.562] Start: 01-21-2024 End: 01-21-2024 ambulatory Beverly Arce RN [facility] Coordinated Care Start: 01-21-2024 End: 01-21-2024 Coordination of care plan Beverly Arce RN [facility] Coordinated Care Comment on above: CARE COORDINATION Start: 12-28-2023 End: 12-28-2023 Patient encounter procedure Heena Birch APRN.ASSOCIATE MERCHANDISE PLANNER Work Phone: [facility] [place] Comment on above: Acute pain of left s houlder (Primary Dx); Acute left-sided thoracic back pain Start: 12-23-2023 End: 12-23-2023 Patient encounter procedure Vernon Nicole OD Work Phone: Ophthalmology Comment on above: Myopia, bilateral (P rimary Dx); Presbyopia; Regular astigmatism of both eyes; Posterior subcapsular polar age-related cataract of both eyes Start: 11-19-2023 End: 11-19-2023 Office outpatient visit 15 minutes Cherry Klein APRN.CNP Work Phone: Family Medicine [place] Comment on above: Body aches (Primary Dx); Chills; Sensation of fullness in left ear; Throat irritation; Chest tightness; Acute cough; Persistent cough for 3 weeks or longer Start: 11-01-2023 Telephone encounter Heena richmond APRN.CNP Work Phone: [facility] [place] Comment on above: Results Start: 10-22-2023 End: 10-22-2023 Patient encounter procedure Evangelina Zambrano MD Work Phone: Orthopaedics Comment on above: Aftercare following left knee joint replacement surgery (Primary Dx) Start: 10-22-2023 End: 10-22-2023 Patient encounter procedure Heena Birch APRN.ASSOCIATE MERCHANDISE PLANNER Work Phone: Internal Medicine [place] Comment on above: Primary osteoarthrit is of both knees (Primary Dx); Chronic pain of both knees; Status post left knee replacement; Scoliosis, unspecified scoliosis type, unspecified spinal region; Muscle spasm of back; Obesity, Class I, BMI 30-34.9; Lipid screening; Encounter for therapeutic drug monitoring; Immunity status testing Start: 10-22-2023 End: 10-22-2023 Patient encounter status Heena Birch APRN.CNP Work Phone: [facility] [place] Start: 10-07-2023 End: 10-07-2023 ambulatory Crow Elliott PT [facility] Comment on above: S/P total knee arthr oplasty, left (Primary Dx) Start: 09-23-2023 End: 09-23-2023 ambulatory Crow Elliott PT [facility] Comment on above: S/P total knee arthr oplasty, left (Primary Dx) Start: 09-16-2023 End: 09-16-2023 ambulatory Crown[place] Elliott PT [facility] Comment on above: S/P total knee arthr oplasty, left (Primary Dx) Start: 09-02-2023 End: 09-02-2023 ambulatory Crow Elliott PT [facility] Comment on above: S/P total knee arthr oplasty, left (Primary Dx) Start: 08-27-2023 Documentation procedure Mammog megan Coordinator [facility] [place] Department Start: 08-27-2023 Letter encounter Mammography Coordinator [facility] [place] Department Start: 08-26-2023 End: 08-26-2023 ambulatory Crow Elliott [facility] Comment on above: S/P total knee arthr oplasty, left (Primary Dx) Start: 08-26-2023 End: 08-26-2023 Subsequent hospital visit by physician Screen Mammo [facility] M[facility] Comment on above: Screening mammogram for breast cancer [Z12.31] Start: 08-19-2023 End: 08-19-2023 ambulatory Crow Elliott [facility] Comment on above: S/P total knee arthr oplasty, left (Primary Dx) Start: 08-12-2023 End: 08-12-2023 ambulatory Crow Elliott PT [facility] Comment on above: S/P total knee arthr oplasty, left (Primary Dx) Refill Request Start: 08-06-2023 Refill Heena Birch APRN.CNP Work Phone: Internal Medicine [place] Comment on above: Refill Request Start: 08-05-2023 End: 08-05-2023 ambulatory Crow Elliott PT [facility] Comment on above: S/P total knee arthr oplasty, left (Primary Dx) Start: 07-30-2023 End: 07-30-2023 ambulatory Crow Earl PT [facility] Comment on above: S/P total knee arthr oplasty, left (Primary Dx) Start: 07-27-2023 End: 07-27-2023 ambulatory Crow Earl PT [facility] Comment on above: S/P total knee arthr oplasty, left (Primary Dx) Start: 07-23-2023 End: 07-23-2023 ambulatory Crow Earl PT [facility] Comment on above: S/P total knee arthr oplasty, left (Primary Dx) Start: 07-20-2023 End: 07-20-2023 ambulatory Crow Earl PT [facility] Comment on above: S/P total knee arthr oplasty, left (Primary Dx) Start: 07-19-2023 End: 07-19-2023 Patient encounter procedure Evangelina Zambrano MD Work Phone: Orthopaedics Comment on above: Aftercare following left knee joint replacement surgery (Primary Dx) Start: 07-16-2023 End: 07-16-2023 ambulatory [facility] Comment on above: S/P total knee arthr oplasty, left (Primary Dx) Start: 07-13-2023 End: 07-13-2023 ambulatory Rcow Earl PT [facility] Comment on above: S/P total knee arthr oplasty, left (Primary Dx) Start: 07-05-2023 End: 07-05-2023 ambulatory Crow Earl PT [facility] Comment on above: S/P total knee arthr oplasty, left (Primary Dx) Start: 07-01-2023 End: 07-01-2023 ambulatory Crow Earl PT [facility] Comment on above: S/P total knee arthr oplasty, left (Primary Dx) Start: 06-28-2023 End: 06-28-2023 ambulatory Crow Earl PT [facility] Comment on above: S/P total knee arthr oplasty, left (Primary Dx) Start: 06-27-2023 Get Medical Advice Evangelina Zambrano MD Work Phone: Orthopaedics Comment on above: Refill Start: 06-24-2023 End: 06-24-2023 ambulatory Crow Elliott PT [facility] Comment on above: S/P total knee arthr oplasty, left (Primary Dx) Start: 06-22-2023 End: 06-22-2023 ambulatory Crow Elliott PT [facility] Comment on above: S/P total knee arthr oplasty, left (Primary Dx) Start: 06-21-2023 End: 06-21-2023 Patient encounter procedure Evangelina Zambrano MD Work Phone: Orthopaedics Comment on above: Aftercare following left knee joint replacement surgery (Primary Dx) Start: 06-18-2023 End: 06-18-2023 ambulatory Crow Elliott PT [facility] Comment on above: S/P total knee arthr oplasty, left (Primary Dx) Start: 06-17-2023 Get Medical Advice Heena boykin APRN.CNP Work Phone: Internal Medicine [place] Comment on above: Order and insomnia Start: 06-15-2023 End: 06-15-2023 ambulatory Crow Elliott PT [facility] Comment on above: S/P total knee arthr oplasty, left (Primary Dx) Start: 06-11-2023 End: 06-11-2023 ambulatory Crow Elliott PT [facility] Comment on above: S/P total knee arthr oplasty, left (Primary Dx) Start: 06-08-2023 End: 06-08-2023 ambulatory Melodie Miguel [employer] SALES MANAGER Work Phone: [facility] Comment on above: S/P total knee arthr oplasty, left (Primary Dx) Start: 06-03-2023 End: 06-03-2023 ambulatory Crow Elliott PT [facility] Comment on above: Primary osteoarthrit is of left knee (Primary Dx) Start: 05-31-2023 End: 05-31-2023 ambulatory rCow Elilott PT [facility] Comment on above: S/P total knee arthr oplasty, left (Primary Dx) Start: 05-26-2023 End: 05-26-2023 Home visit Marii Peraza PT Work Phone: [facility] Comment on above: PT AGENCY DC W VISIT Start: 05-25-2023 End: 05-25-2023 Home visit Lora Reyes [employer]CIAL [employer] SALES MANAGER Work Phone: [facility] Comment on above: COMMERCIAL REAL ESTATE SALES MANAGER ROUTINE Start: 05-24-2023 End: 05-24-2023 Patient encounter procedure Kobe Templeton PA-C Work Phone: Orthopaedics Comment on above: S/P total knee arthr oplasty, left (Primary Dx) Start: 05-24-2023 End: 05-24-2023 Subsequent hospital visit by physician [facility] [employer] Shelbie Mosher Work Phone: Radiology Comment on above: Left knee pain, unsp ecified chronicity [M25.562] Start: 05-21-2023 End: 05-21-2023 Home visit Lora Reyes [employer]CIAL [employer] SALES MANAGER Work Phone: [facility] Comment on above: COMMERCIAL [employer] ESTATE SALES MANAGER ROUTINE Start: 05-20-2023 Refill Evangelina hagen MD Work Phone: Orthopaedics Comment on above: Refill Request Start: 05-19-2023 End: 05-19-2023 Home visit Lora Reyes COMMERCIAL [employer]STATE SALES MANAGER Work Phone: [facility] Comment on above: COMMERCIAL [employer] ESTATE SALES MANAGER ROUTINE Start: 05-17-2023 ambulatory Evangelina hagen MD Work Phone: Orthopaedics Comment on above: Ibuprofen Start: 05-17-2023 Telephone encounter Loraleonel Leo on [employer]CIAL [employer]STATE SALES MANAGER Work Phone: [facility] Comment on above: Home Care (Bandage r emoval) Start: 05-17-2023 End: 05-17-2023 Home visit Lora Reyes COMMERCIAL [employer]STATE SALES MANAGER Work Phone: [facility] Comment on above: COMMERCIAL REAL ESTATE SALES MANAGER ROUTINE Start: 05-15-2023 End: 05-15-2023 Home visit Sonu Obrien COMMERCIAL [employer]STATE SALES MANAGER Work Phone: [facility] Comment on above: COMMERCIAL [employer] ESTATE SALES MANAGER ROUTINE Start: 05-14-2023 Home visit Marisa (Rn) Roberto somers RN Work Phone: [facility] Comment on above: CARE COORDINATION Start: 05-13-2023 End: 05-13-2023 Home visit Marii YoderTorin PT Work Phone: [facility] Comment on above: PT SOC Start: 05-03-2023 End: 05-03-2023 Patient encounter procedure Evangelina Zambrano MD Work Phone: Orthopaedics Comment on above: Primary osteoarthrit is of left knee (Primary Dx) Start: 04-29-2023 ambulatory [facility] Facility:[facility] Start: 03-15-2023 ambulatory Beverly Arce RN [facility] Managed Care Start: 03-15-2023 Coordination of care plan Beverly Arce RN [facility] Coordinated Care Comment on above: CARE COORDINATION Start: 02-23-2023 ambulatory Medardo Lester PA-C Work Phone: [facility] Start: 02-23-2023 Follow-up encounter Medardo nunez PA-C Work Phone: Orthopaedics Comment on above: Follow up questions Start: 02-22-2023 End: 02-22-2023 Office outpatient visit 25 minutes Medardo Lester PA-C Work Phone: Orthopaedics Comment on above: Primary osteoarthrit is of left knee (Primary Dx) Start: 02-22-2023 End: 02-22-2023 Subsequent hospital visit by physician [facility] Work Phone: Radiology Comment on above: Left knee pain, unsp ecified chronicity [M25.562] Start: 01-12-2023 Telephone encounter Sivakumar Matamoros PA-C Work Phone: Family Medicine [place] Start: 12-17-2022 End: 12-17-2022 Patient encounter procedure Vernon Nicole OD Work Phone: Ophthalmology Comment on above: Myopia, bilateral (P rimary Dx); Presbyopia; Regular astigmatism of both eyes; Posterior subcapsular polar age-related cataract of both eyes Start: 12-17-2022 End: 12-17-2022 Patient encounter procedure Ana Laura Jordan APRN.CNP Work Phone: OB/Gynecology Comment on above: Recurrent major depr essive disorder, in partial remission (HCC) (Primary Dx); Gastroesophageal reflux disease without esophagitis; Arthritis of left knee; Class 2 severe obesity with serious comorbidity and body mass index (BMI) of 39.0 to 39.9 in adult, unspecified obesity type (HCC) Start: 12-04-2022 End: 12-04-2022 Patient encounter procedure Heena Birch APRN.ASSOCIATE MERCHANDISE PLANNER Work Phone: Internal Medicine [place] Comment on above: Chronic pain of both knees (Primary Dx); Primary osteoarthritis of both knees Start: 10-28-2022 ambulatory Beverly Arce RN [facility] Managed Care Start: 10-28-2022 Coordination of care plan Beverly Arce RN [facility] Coordinated Care Comment on above: CARE COORDINATION Start: 10-22-2022 End: 10-22-2022 Patient encounter procedure Ana Laura Jordan APRN.CNP Work Phone: OB/Gynecology Comment on above: Recurrent major depr essive disorder, in partial remission (HCC) (Primary Dx); Gastroesophageal reflux disease without esophagitis; Arthritis of left knee; Class 2 severe obesity with serious comorbidity and body mass index (BMI) of 39.0 to 39.9 in adult, unspecified obesity type (HCC) Start: 10-08-2022 Refill Ana Laura Jordan APRN.CNP Work Phone: OB/Gynecology Comment on above: Refill Request Start: 09-09-2022 ambulatory Sivakumar canseco PA-C Work Phone: [facility] [place] Comment on above: Medication change New medication Start: 09-08-2022 Telephone encounter Heena richmond APRN.CNP Work Phone: Internal Medicine [place] Comment on above: Patient Question Start: 08-25-2022 End: 08-25-2022 Subsequent hospital visit by physician [facility] Work Phone: Radiology Comment on above: Inconclusive mammogr am [R92.2] Start: 07-30-2022 End: 07-30-2022 Patient encounter procedure Ana Laura Jordanemmett VELAZCO.ASSOCIATE MERCHANDISE PLANNER Work Phone: OB/Gynecology Comment on above: Gastroesophageal ref lux disease without esophagitis (Primary Dx); Arthritis of left knee; Recurrent major depressive disorder, in partial remission (HCC); Acute pain of right shoulder; Mild intermittent asthma without complication; Encounter for screening for lipoid disorders; Screening for diabetes mellitus; Screening, anemia, deficiency, iron; Screening for thyroid disorder; Class 2 severe obesity with serious comorbidity and body mass index (BMI) of 39.0 to 39.9 in adult, unspecified obesity type (HCC) Start: 07-21-2022 Telephone encounter Krystyna weller MD Work Phone: Mammography Comment on above: Mammogram Result Jne l Back Start: 07-18-2022 Telephone encounter Sivakumar Matamoros PA-C Work Phone: Family Medicine [place] Comment on above: Results Start: 07-16-2022 End: 07-16-2022 Subsequent hospital visit by physician Screen Mammo [facility] Comment on above: Encounter for screen ing mammogram for malignant neoplasm of breast [Z12.31] Start: 07-14-2022 Telephone encounter Sivakumar Matamoros PA-C Work Phone: [facility] [place] Comment on above: Orders Start: 07-14-2022 End: 07-14-2022 Patient encounter procedure Sivakumar Matamoros PA-C Work Phone: Family Medicine [place] Comment on above: Persistent cough for 3 weeks or longer (Primary Dx) Start: 07-13-2022 Refill Birdie Odonnell.ASSOCIATE MERCHANDISE PLANNER Work Phone: Gastroenterology Comment on above: Refill Request Start: 06-28-2022 End: 06-28-2022 Patient encounter procedure Bob Tran APRN.ASSOCIATE MERCHANDISE PLANNER Work Phone: [facility] Comment on above: Lower resp. tract in fection (Primary Dx); History of asthma Start: 06-16-2022 Get Medical Advice Sivakumar Matamoros PA-C Work Phone: [facility] Comment on above: Mammogram orders Start: 06-15-2022 ambulatory Evangelina hagen MD Work Phone: Orthopaedics Comment on above: Injection approval Start: 05-26-2022 End: 05-26-2022 Patient encounter procedure Sivakumar YOUNG[employer] Work Phone: [facility] Comment on above: Recurrent major depr essive disorder, in partial remission (HCC) (Primary Dx); Obesity, Class II, BMI 35-39.9; Arthritis of left knee Medication Request Start: 05-26-2022 Refill Sivakumar canseco PATrooval Work Phone: [facility] Comment on above: Med Change Request Start: 05-19-2022 End: 05-20-2022 ambulatory Crow Elliott [facility] Comment on above: Arthritis of left kn ee (Primary Dx) Start: 05-15-2022 End: 05-15-2022 Patient encounter procedure Evangelina Zambrano MD Work Phone: Orthopaedics Comment on above: Primary osteoarthrit is of left knee (Primary Dx) Start: 05-14-2022 End: 05-14-2022 ambulatory Crow Elliott [facility] Comment on above: Arthritis of left kn ee (Primary Dx) Start: 05-12-2022 End: 05-12-2022 ambulatory Crow Elliott [facility] Comment on above: Arthritis of left kn ee (Primary Dx) Start: 04-30-2022 End: 04-30-2022 ambulatory Crow Elliott [facility] Comment on above: Arthritis of left kn ee (Primary Dx) Start: 03-31-2022 Patient Update Gina [facility] Comment on above: Medication Update (R efill Auth Consent/ ) Start: 03-26-2022 End: 03-26-2022 ambulatory Melodie Miguel PTA Work Phone: [facility] Comment on above: Arthritis of left kn ee (Primary Dx) Start: 03-19-2022 End: 03-19-2022 ambulatory Crow [facility] Comment on above: Arthritis of left kn ee (Primary Dx) Start: 03-12-2022 ambulatory Beverly Arce RN [facility] Managed Care Start: 03-12-2022 Coordination of care plan Beverly Arce RN [facility] Coordinated Care Comment on above: CARE COORDINATION Start: 03-11-2022 Telephone encounter Sivakumar Yusuf Matamoros PA-C Work Phone: [facility] Comment on above: Insurance Authorizat ion ([employer] ) Start: 03-04-2022 Refill Audi Sampson MD Work Phone: [facility] Comment on above: Refill Request (Incr ease dose) Start: 03-03-2022 End: 03-03-2022 Subsequent hospital visit by physician [facility] [place] Work Phone: Radiology Comment on above: Chronic pain of left knee [M25.562, G89.29] Start: 03-02-2022 ambulatory Patricia Smith MA [facility] Sampling Theory Teacher rdinated Care Comment on above: STRAP STITCHER - O THER Start: 01-29-2022 Telephone encounter Sivakumar Yusuf Matamoros PA-C Work Phone: [facility] Comment on above: Insurance Authorizat ion Start: 01-27-2022 End: 01-27-2022 Patient encounter procedure Sivakumar Yusuf Matamoros PA-C Work Phone: [facility] Comment on above: Well adult exam (Pebbles silvia Dx); Adjustment disorder with depressed mood; Recurrent major depressive disorder, in partial remission (HCC); Obesity, Class II, BMI 35-39.9; Need for vaccination Start: 01-27-2022 End: 01-27-2022 Patient encounter status Sivakumar Yusuf Matamoros PA-C Work Phone: [facility] Start: 12-03-2021 Telephone encounter Renetta morin 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 Work Phone: [facility] Comment on above: Orders Start: 09-19-2021 Telephone encounter Alexandra bonilla 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 Work Phone: OB/Gynecology Comment on above: Patient Question Start: 09-11-2021 End: 09-11-2021 ambulatory Crownatasha Elliott PT [facility] Comment on above: Acute pain of right shoulder (Primary Dx); Snapping scapula syndrome of right shoulder Start: 09-04-2021 End: 09-04-2021 ambulatory Crow Elliott PT [facility] Comment on above: Acute pain of right shoulder (Primary Dx); Snapping scapula syndrome of right shoulder Start: 08-22-2021 End: 08-22-2021 ambulatory Patsy Trevizo [employer]CIAL [employer] SALES MANAGER Work Phone: [facility] Comment on above: Acute pain of right shoulder (Primary Dx); Snapping scapula syndrome of right shoulder Start: 08-13-2021 End: 08-13-2021 ambulatory Sivakumar Matamoros [employer] Work Phone: [facility] [place] Comment on above: Question regarding X R SHOULDER GENERAL 3V OR MORE AP/TRUE AP/OTHER RT Acute pain of right shoulder (Primary Dx); Snapping scapula syndrome of right shoulder Start: 08-11-2021 Orders Only Sivakumar Villalpando on [employer] Work Phone: [facility] [place] Comment on above: Rotator cuff injury, right, subsequent encounter (Primary Dx) Start: 08-07-2021 ambulatory Sivakumar Villalpando on [employer] Work Phone: [facility] [place] Comment on above: Shoulder injury Start: 08-07-2021 End: 08-07-2021 Subsequent hospital visit by physician [facility] Mosher Work Phone: Radiology Comment on above: Canceled (CC cx: Err or or Template Change) Start: 07-17-2021 End: 07-17-2021 Patient encounter procedure Sivakumar Matamoros [employer] Work Phone: [facility] [place] Comment on above: Sprain of right rota tor cuff capsule, initial encounter (Primary Dx) Procedures Date Procedure Procedure Detail Performing Clinician Start: 12-05-2024 Digital breast tomosynthesis unilateral Heena Eyal 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 Work Phone: Start: 10-30-2023 Lipid 1996 panel - S raj or Plasma Heena Eyal 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 Work Phone: Start: 05-24-2023 Radiologic examinati on knee 3 views Kobe BISWASC Work Phone: Start: 02-22-2023 Radiologic exam knee complete 4/more views Medardo Wyatt Trevon PA-C Work Phone: Start: 12-04-2022 Arthrocentesis aspir &/inj major jt/bursa w/o us Heena Birch 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 Work Phone: Start: 08-25-2022 Us breast uni real t marie with image limited Sivakumar Yusuf Matamoros PA-C Work Phone: Start: 08-25-2022 Digital breast tomosynthesis unilateral Sivakumar Yusuf Matamoros PA-C Work Phone: Start: 08-01-2022 Lipid 1996 panel - S raj or Plasma LEONEL Matamoros PA-C Work Phone: Start: 07-16-2022 STEFFI SCREENING W SAMUEL Sivakumar Yusuf Matamoros PA-C Work Phone: Start: 07-16-2022 Mammography NA Matamoros PA-C Work Phone: Start: 03-03-2022 Radiologic exam knee complete 4/more views Sivakumar Yusuf Matamoros PA-C Work Phone: Start: 06-19-2021 Mammography NA Matamoros PA-C Work Phone: Start: 09-23-2020 Colonoscopy NA Matamoros PA-C Work Phone: Start: 05-21-2016 Adult depression scr eening assessment NA Matamoros PA-C Work Phone: Plan of Treatment Date Care Activity Detail Author Start: 09-23-2030 Colonoscopy COLONOSCOPY [facility] Start: 09-23-2030 COLORECTAL CANCER SCREENING COLORECTAL CANCER SCREENING [facility] Start: 09-23-2030 Screening for malign ant neoplasm of colon [facility] Start: 10-29-2028 Lipid panel Lipid Screening [facility] Start: 08-23-2028 Urine microalbumin profile [facility] Start: 08-02-2027 Lipid 1996 panel - Serum or Plasma Lipid Screening [facility] Start: 08-02-2027 Lipid panel Lipid Screening [facility] Start: 08-02-2027 LIPID SCREEN LIPID SCREEN [facility] Start: 10-29-2026 Diabetes Screening Diabetes Screenin g [facility] Start: 05-11-2026 Diabetes Screening Diabetes Screenin g [facility] Start: 01-01-2026 End: 01-01-2026 Patient encounter procedure 01/01/2026 1:00 PM EDT Office Visit [facility] Op[facility] [address] [place] [address] Vernon Nicole, OD [address] [place] [address] Diagnostics, [facility] [place] [address] 1 YR for complete eye exam. Ophthalmology Comment on above: 1 YR for complete ey e exam. Start: 10-31-2025 Annual PCP Team Veneer Sorter lisbeth Disease Visit Annual PCP Team Chronic Disease Visit [facility] Start: 10-31-2025 Screening for malign ant neoplasm of breast Mammogram Screening [facility] Start: 08-01-2025 DIABETES SCREEN DIABETES SCREEN [facility] Start: 08-01-2025 Diabetes Screening Diabetes Screenin g [facility] Start: 03-28-2025 Annual PCP Team Veneer Sorter lisbeth Disease Visit Annual PCP Team Chronic Disease Visit [facility] Start: 01-31-2025 DIABETES SCREEN DIABETES SCREEN [facility] Start: 12-28-2024 End: 12-28-2024 Patient encounter procedure 12/28/2024 1:00 PM EDT Office Visit [facility] [address] [place] [address] Vernon Nicole, OD [address] [place] [address] 1 YR for complete eye exam. Ophthalmology Comment on above: 1 YR for complete ey e exam. Start: 09-17-2025 Annual PCP Team Veneer Sorter lisbeth Disease Visit Annual PCP Team Chronic Disease Visit [facility] Start: 12-26-2024 End: 12-26-2024 Patient encounter procedure 12/26/2024 1:00 PM EDT Office Visit [facility] [address] [place] [address] Vernon Nicole, OD [address] [place] [address] Diagnostics, [facility] And [address] [address] 1 YR for complete eye exam. Ophthalmology Comment on above: 1 YR for complete ey e exam. Start: 12-11-2024 Influenza vaccination Influenza Vacc ine (#1) [facility] Start: 12-05-2024 End: 12-05-2024 Patient encounter procedure Mammogram Comment on above: left breast callback Comp- LT CB Abnormal mammogram [ R92.8] Start: 11-18-2024 Annual PCP Team Veneer Sorter lisbeth Disease Visit Annual PCP Team Chronic Disease Visit [facility] Start: 10-21-2024 Annual PCP Team Veneer Sorter lisbeth Disease Visit Annual PCP Team Chronic Disease Visit [facility] Start: 10-05-2024 LIPID SCREEN LIPID SCREEN [facility] Start: 08-25-2024 Screening for malign ant neoplasm of breast Mammogram Screening [facility] Start: 06-02-2024 End: 06-02-2024 Patient encounter procedure 06/02/2024 11:15 AM EST Office Visit Orthopaedics [address] [address] Evangelina Zambrano MD [address] [address] left knee 4 month follow up Orthopaedics Comment on above: left knee 4 month fo llow up Start: 02-09-2024 Annual PCP Team Veneer Sorter lisbeth Disease Visit Annual PCP Team Chronic Disease Visit [facility] Start: 01-26-2024 End: 01-26-2024 Patient encounter procedure Orthopaedics Comment on above: 3 month follow up knee pain Start: 12-23-2023 End: 12-23-2023 Patient encounter procedure 12/23/2023 1:15 PM EDT Office Visit [facility] [address] [place] [address] Vernon Nicole, OD [address] [place] [address] Return in about 1 year (around 12/18/2023) for complete with cl eval. Ophthalmology Comment on above: Return in about 1 ye ar (around 12/18/2023) for complete with cl eval. Start: 12-12-2023 Influenza vaccination Influenza Vacc ine (#1) [facility] Start: 12-05-2023 ANNUAL PCP TEAM PHARMACEUTICAL WORKER LISBETH DISEASE VISIT ANNUAL PCP TEAM CHRONIC DISEASE VISIT [facility] Start: 10-22-2023 End: 01-21-2024 CBC W Auto Differential panel - Blood COMPLETE BLOOD COUNT AND DIFFERENTIAL Lab Routine Encounter for therapeutic drug monitoring Expected: 10/22/2023, Expires: 01/21/2024 [facility] Work Phone: Comment on above: Expected: 10/22/2023 , Expires: 01/21/2024 Start: 10-22-2023 End: 01-21-2024 Comprehensive metabolic 2000 panel - Serum or Plasma COMPREHENSIVE METABOLIC PANEL Lab Routine Encounter for therapeutic drug monitoring Expected: 10/22/2023, Expires: 01/21/2024 [facility] Comment on above: Expected: 10/22/2023 , Expires: 01/21/2024 Start: 10-22-2023 End: 01-21-2024 Hepatitis B virus surface Ab [Presence] in Serum HEPATITIS B SURFACE ANTIBODY Lab Routine Immunity status testing Expected: 10/22/2023, Expires: 01/21/2024 [facility] Comment on above: Expected: 10/22/2023 , Expires: 01/21/2024 Start: 10-22-2023 End: 01-21-2024 LIPID PANEL, NONFASTING LIPID PANEL, NONFASTING Lab Routine Lipid screening Expected: 10/22/2023, Expires: 01/21/2024 [facility] Comment on above: Expected: 10/22/2023 , Expires: 01/21/2024 Start: 10-22-2023 End: 10-22-2023 Patient encounter procedure Orthopaedics Comment on above: 3 month follow up fr om pervious visit on 07/19/23 Lt tka antolin 05/10/23- follow up Start: 10-19-2023 End: 10-19-2023 ambulatory 10/19/2023 6:00 PM EDT OT/PT/Speech Visit [facility] [address] [place] [address] rCow Elliott, PT M17.12 (ICD-10-CM) - Primary osteoarthritis of left knee [facility] Comment on above: M17.12 (ICD-10-CM) - Primary osteoarthritis of left knee Start: 10-07-2023 End: 10-07-2023 ambulatory 10/07/2023 10:00 AM EDT OT/PT/Speech Visit [facility] [address] [place] [address] Crow Elliott, PT M17.12 (ICD-10-CM) - Primary osteoarthritis of left knee [facility] Comment on above: M17.12 (ICD-10-CM) - Primary osteoarthritis of left knee Start: 09-23-2023 End: 09-23-2023 ambulatory 09/23/2023 12:30 PM EDT OT/PT/Speech Visit [facility] [address] [place] [address] Crow Elliott, PT KNEE PAIN [facility] Comment on above: KNEE PAIN Start: 09-16-2023 End: 09-16-2023 ambulatory 09/16/2023 12:30 PM EDT OT/PT/Speech Visit [facility] [address] [place] [address] Crow Elliott, PT KNEE PAIN [facility] Comment on above: KNEE PAIN Start: 09-09-2023 End: 09-09-2023 ambulatory 09/09/2023 12:30 PM EDT OT/PT/Speech Visit [facility] [address] [place] [address] Earl, Crow, PT KNEE PAIN [facility] Comment on above: KNEE PAIN Start: 09-02-2023 End: 09-02-2023 ambulatory 09/02/2023 12:30 PM EDT OT/PT/Speech Visit [facility] [address] [place] [address] Earl, Crow, PT KNEE PAIN [facility] Comment on above: KNEE PAIN Start: 08-26-2023 End: 08-26-2023 ambulatory 08/26/2023 12:30 PM EDT OT/PT/Speech Visit [facility] [address] [place] [address] Earl, Crow, PT KNEE PAIN [facility] Comment on above: KNEE PAIN Start: 08-26-2023 End: 08-26-2023 Patient encounter procedure 08/26/2023 11:30 AM EDT Appointment Mammogram [address] [address] Mammogram Start: 08-19-2023 End: 08-19-2023 ambulatory 08/19/2023 5:15 PM EDT OT/PT/Speech Visit [facility] [address] [place] [address] Earl, Crow, PT KNEE PAIN [facility] Comment on above: KNEE PAIN Start: 08-12-2023 End: 08-12-2023 ambulatory 08/12/2023 5:15 PM EDT OT/PT/Speech Visit [facility] [address] [place] [address] Earl, Crow, PT KNEE PAIN [facility] Comment on above: KNEE PAIN Start: 07-17-2023 Mammography [facility] Start: 07-17-2023 Screening for malign ant neoplasm of breast Mammogram Screening [facility] Start: 07-15-2023 ANNUAL PCP TEAM PHARMACEUTICAL WORKER LISBETH DISEASE VISIT ANNUAL PCP TEAM CHRONIC DISEASE VISIT [facility] Start: 06-18-2023 DIABETES SCREEN DIABETES SCREEN [facility] Start: 05-26-2023 ANNUAL PCP TEAM PHARMACEUTICAL WORKER LISBETH DISEASE VISIT ANNUAL PCP TEAM CHRONIC DISEASE VISIT [facility] Start: 01-27-2023 ANNUAL PCP TEAM PHARMACEUTICAL WORKER LISBETH DISEASE VISIT ANNUAL PCP TEAM CHRONIC DISEASE VISIT [facility] Start: 01-27-2023 PNEUMOCOCCAL (2 - PCV) PNEUMOCOCCAL (2 - PCV) [facility] Start: 01-27-2023 Pneumococcal vaccination [facility] Start: 01-27-2023 Pneumococcal Vaccine : 50+ (2 of 2 - PCV) Pneumococcal Vaccine: 50+ (2 of 2 - PCV) [facility] Start: 12-11-2022 Influenza vaccination [facility] Start: 07-30-2022 End: 09-29-2022 25-hydroxyvitamin D3 [Mass/volume] in Serum or Plasma VITAMIN D 25 HYDROXY Lab Routine Class 2 severe obesity with serious comorbidity and body mass index (BMI) of 39.0 to 39.9 in adult, unspecified obesity type (HCC) Expected: 07/30/2022, Expires: 09/29/2022 [facility] Work Phone: Comment on above: Expected: 07/30/2022 , Expires: 09/29/2022 Start: 07-30-2022 End: 09-29-2022 CBC W Auto Differential panel - Blood CBC + DIFF Lab Routine Class 2 severe obesity with serious comorbidity and body mass index (BMI) of 39.0 to 39.9 in adult, unspecified obesity type (HCC) Screening, anemia, deficiency, iron Expected: 07/30/2022, Expires: 09/29/2022 [facility] Work Phone: Comment on above: Expected: 07/30/2022 , Expires: 09/29/2022 Start: 07-30-2022 End: 09-29-2022 Comprehensive metabolic 2000 panel - Serum or Plasma COMP METABOLIC PANEL Lab Routine Class 2 severe obesity with serious comorbidity and body mass index (BMI) of 39.0 to 39.9 in adult, unspecified obesity type (HCC) Expected: 07/30/2022, Expires: 09/29/2022 [facility] Work Phone: Comment on above: Expected: 07/30/2022 , Expires: 09/29/2022 Start: 07-30-2022 End: 06-20-2023 Hemoglobin A1c in Blood HGB A1C Lab Routine Screening for diabetes mellitus Class 2 severe obesity with serious comorbidity and body mass index (BMI) of 39.0 to 39.9 in adult, unspecified obesity type (HCC) Expected: 07/30/2022, Expires: 09/29/2022 [facility] Work Phone: Comment on above: Expected: 07/30/2022 , Expires: 09/29/2022 Start: 07-30-2022 End: 09-29-2022 Insulin [Units/volume] in Serum or Plasma INSULIN ASSAY BLOOD Lab Routine Screening for diabetes mellitus Class 2 severe obesity with serious comorbidity and body mass index (BMI) of 39.0 to 39.9 in adult, unspecified obesity type (HCC) Expected: 07/30/2022, Expires: 09/29/2022 [facility] Work Phone: Comment on above: Expected: 07/30/2022 , Expires: 09/29/2022 Start: 07-30-2022 End: 09-29-2022 Iron and Iron binding capacity panel - Serum or Plasma IRON + TIBC Lab Routine Class 2 severe obesity with serious comorbidity and body mass index (BMI) of 39.0 to 39.9 in adult, unspecified obesity type (HCC) Screening, anemia, deficiency, iron Expected: 07/30/2022, Expires: 09/29/2022 [facility] Work Phone: Comment on above: Expected: 07/30/2022 , Expires: 09/29/2022 Start: 07-30-2022 End: 09-29-2022 Lipid 1996 panel - Serum or Plasma LIPID PANEL BASIC Lab Routine Encounter for screening for lipoid disorders Class 2 severe obesity with serious comorbidity and body mass index (BMI) of 39.0 to 39.9 in adult, unspecified obesity type (HCC) Expected: 07/30/2022, Expires: 09/29/2022 [facility] Work Phone: Comment on above: Expected: 07/30/2022 , Expires: 09/29/2022 Start: 07-30-2022 End: 09-29-2022 Thyrotropin [Units/volume] in Serum or Plasma TSH BLD Lab Routine Class 2 severe obesity with serious comorbidity and body mass index (BMI) of 39.0 to 39.9 in adult, unspecified obesity type (HCC) Screening for thyroid disorder Expected: 07/30/2022, Expires: 09/29/2022 [facility] Work Phone: Comment on above: Expected: 07/30/2022 , Expires: 09/29/2022 Start: 07-17-2022 ANNUAL PCP TEAM PHARMACEUTICAL WORKER LISBETH DISEASE VISIT ANNUAL PCP TEAM CHRONIC DISEASE VISIT [facility] Start: 06-19-2022 Mammography MAMMOGRAM [facility] Start: 03-24-2022 SHINGRIX VACCINE (2 of 2) SHINGRIX VACCINE (2 of 2) [facility] Start: 01-27-2022 End: 03-29-2022 CBC panel - Blood by Automated count CBC Lab Routine Adjustment disorder with depressed mood Recurrent major depressive disorder, in partial remission (HCC) Expected: 01/27/2022, Expires: 03/29/2022 [facility] Work Phone: Comment on above: Expected: 01/27/2022 , Expires: 03/29/2022 Start: 01-27-2022 End: 03-29-2022 Comprehensive metabolic 2000 panel - Serum or Plasma COMP METABOLIC PANEL Lab Routine Adjustment disorder with depressed mood Recurrent major depressive disorder, in partial remission (HCC) Expected: 01/27/2022, Expires: 03/29/2022 [facility] Work Phone: Comment on above: Expected: 01/27/2022 , Expires: 03/29/2022 Start: 12-11-2021 Influenza vaccination INFLUENZA (#1) [facility] Start: 08-21-2021 COVID-19 VACCINE (3 - Booster for Moderna series) COVID-19 VACCINE (3 - Booster for Moderna series) [facility] Start: 2020 SHINGRIX VACCINE (1 of 2) SHINGRIX VACCINE (1 of 2) [facility] Start: 05-21-2017 Adult depression screening assessment DEPRESSION SCREENING [facility] Start: 09-21-2015 COLOGUARD (FIT-DNA) COLOGUARD (FIT-D NA) [facility] Start: 09-21-[address] COLONOGRAPHY [facility] Start: 09-21-2015 FECAL OCCULT BLOOD FECAL OCCULT BLOO D [facility] Start: 09-21-2015 Screening for malign ant neoplasm of colon [facility] Start: 09-21-2015 [facility] Start: 1989 Hepatitis B Vaccine (1 of 3 - 19+ 3-dose series) Hepatitis B Vaccine (1 of 3 - 19+ 3-dose series) [facility] Start: 1976 PNEUMOCOCCAL (1 - PCV) PNEUMOCOCCAL (1 - PCV) [facility] Start: 1970 HEPATITIS B (1 of 3 - 3-dose series) HEPATITIS B (1 of 3 - 3-dose series) [facility] Start: 1970 Hepatitis B Vaccine (1 of 3 - 3-dose series) Hepatitis B Vaccine (1 of 3 - 3-dose series) [facility] COVID & INFLUENZA A/ B & RSV NAAT, ROUTINE COVID & INFLUENZA A/B & RSV NAAT, ROUTINE Microbiology Routine Body aches Chills Sensation of fullness in left ear Throat irritation Chest tightness Acute cough Persistent cough for 3 weeks or longer Ordered: 11/19/2023 [facility] Work Phone: Comment on above: Ordered: 11/19/2023 COVID & INFLUENZA A/ B & RSV PCR, ROUTINE COVID & INFLUENZA A/B & RSV PCR, ROUTINE Microbiology Routine Upper respiratory tract infection, unspecified type Ordered: 03/20/2024 [facility] Work Phone: Comment on above: Ordered: 03/20/2024 End: 07-17-2024 DBT Breast - bilateral screening STEFFI SCREENING [facility] Radiology Routine Screening mammogram for breast cancer 1 Occurrences starting 06/18/2023 until 07/17/2024 [facility] Work Phone: Comment on above: 1 Occurrences starti ng 06/18/2023 until 07/17/2024 DBT Breast - bilater al screening STEFFI SCREENING [facility] Radiology Routine Screening mammogram for breast cancer 08/26/2023 11:24 AM EDT [facility] Work Phone: End: 09-01-2025 DBT Breast - bilateral screening STEFFI SCREENING [facility] Radiology Routine Encounter for screening mammogram for malignant neoplasm of breast 1 Occurrences starting 08/02/2024 until 09/01/2025 [facility] Work Phone: Comment on above: 1 Occurrences starti ng 08/02/2024 until 09/01/2025 DBT Breast - bilater al screening STEFFI SCREENING [facility] Radiology Routine Encounter for screening mammogram for malignant neoplasm of breast 10/31/2024 11:45 AM EDT [facility] Work Phone: Hzv zoster vacc recombinant adjuvanted im njx ZOSTER VACCINE, RECOMBINANT (SHINGRIX) Immunization/Injection Routine Encounter for immunization Ordered: 07/14/2022 [facility] Work Phone: Comment on above: Ordered: 07/14/2022 End: 08-17-2023 STEFFI DIAGNOSTIC LEFT STEFFI DIAGNOSTIC LEFT Radiology Routine Inconclusive mammogram 1 Occurrences starting 07/18/2022 until 08/17/2023 [facility] Work Phone: Comment on above: 1 Occurrences starti ng 07/18/2022 until 08/17/2023 End: 07-16-2023 STEFFI SCREENING W [facility] STEFFI SCREENING [facility] Radiology Routine Encounter for screening mammogram for malignant neoplasm of breast 1 Occurrences starting 06/16/2022 until 07/16/2023 [facility] Work Phone: Comment on above: 1 Occurrences starti ng 06/16/2022 until 07/16/2023 End: 12-03-2025 MG Breast - left Diagnostic for implant STEFFI DIAGNOSTIC LEFT Radiology Routine Abnormal mammogram 1 Occurrences starting 11/03/2024 until 12/03/2025 [facility] Work Phone: Comment on above: 1 Occurrences starti ng 11/03/2024 until 12/03/2025 End: 12-03-2025 US Breast - left limited US BREAST LTD LEFT Radiology Routine Abnormal mammogram 1 Occurrences starting 11/03/2024 until 12/03/2025 [facility] Comment on above: 1 Occurrences starti ng 11/03/2024 until 12/03/2025 End: 08-17-2023 US BREAST LTD LEFT US BREAST LTD LEFT Radiology Routine Inconclusive mammogram 1 Occurrences starting 07/18/2022 until 08/17/2023 [facility] Work Phone: Comment on above: 1 Occurrences starti ng 07/18/2022 until 08/17/2023 XR Knee AP and Later al and Merchants XR KNEE POST OP 3V AP/LAT/MERCHANT LEFT Radiology Routine Left knee pain, unspecified chronicity 01/26/2024 1:16 PM EDT [facility] Work Phone: XR Knee AP and Later al and Merchants XR KNEE POST OP 3V AP/LAT/MERCHANT LEFT Radiology Routine Left knee pain, unspecified chronicity 06/02/2024 11:22 AM EST [facility] Work Phone: End: 09-06-2022 XR SHOULDER GENERAL 3V OR MORE AP/TRUE AP/OTHER RIGHT XR SHOULDER GENERAL 3V OR MORE AP/TRUE AP/OTHER RIGHT Radiology Routine Acute pain of right shoulder Snapping scapula syndrome of right shoulder 1 Occurrences starting 08/07/2021 until 09/06/2022 [facility] Work Phone: Comment on above: 1 Occurrences starti ng 08/07/2021 until 09/06/2022 [facility] Immunizations Immunization Date Immunization Notes Care Provider Priscila lowery 01-19-2024 influenza, seasonal, injectable, preservative free [employer] Work Phone: [facility] 01-19-2024 influenza virus vacc ine, unspecified formulation Heena Birch 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 Work Phone: [facility] 01-13-2023 influenza virus vacc ine, unspecified formulation Medardo Trevon PA-C Work Phone: [facility] 07-28-2022 zoster vaccine recombinant Ana Laura Jordan LEANN Work Phone: [facility] Work Phone: 02-09-2022 influenza virus vacc ine, unspecified formulation Patricia Smith MA [facility] 02-09-2022 influenza, injectabl e, quadrivalent, contains preservative Patricia Smith MA [facility] Work Phone: 01-27-2022 pneumococcal polysaccharide vaccine, 23 valent NA Matamoros PA-C Work Phone: [facility] 01-27-2022 zoster vaccine recombinant NA Matamoros PA-C Work Phone: [facility] 01-10-2021 influenza virus vacc ine, unspecified formulation NA Matamoros PA-C Work Phone: [facility] 01-24-2020 influenza, injectabl e, quadrivalent, contains preservative NA Matamoros PA-C Work Phone: [facility] Work Phone: 01-23-2019 influenza, seasonal, injectable NA Matamoros PA-C Work Phone: [facility] 08-23-2018 tetanus toxoid, redu annika diphtheria toxoid, and acellular pertussis vaccine, adsorbed NA Matamoros PA-C Work Phone: [facility] Work Phone: 02-10-2018 influenza virus vacc ine, unspecified formulation NA Matamoros PA-C Work Phone: [facility] 01-19-2017 influenza virus vacc ine, unspecified formulation NA Matamoros PA-C Work Phone: [facility] 01-14-2016 influenza virus vacc ine, unspecified formulation NA Matamoros PA-C Work Phone: [facility] 01-23-2015 influenza virus vacc ine, unspecified formulation NA Matamoros PA-C Work Phone: [facility] 01-16-2014 influenza, seasonal, injectable NA Matamoros PA-C Work Phone: [facility] 01-16-2013 influenza virus vacc ine, unspecified formulation NA Matamoros PA-C Work Phone: [facility] Work Phone: 02-03-2006 influenza virus vacc ine, unspecified formulation NA Matamoros PA-C Work Phone: [facility] Work Phone: 12-02-1998 diphtheria and tetan us toxoids, adsorbed for pediatric use NA Matamoros PA-C Work Phone: [facility] Work Phone: 10-05-1988 diphtheria and tetan us toxoids, adsorbed for pediatric use NA Matamoros PA-C Work Phone: [facility] Work Phone: Payers Date Payer Category Payer Private Health Insurance EHP AET NA EHP STAFF/NON STAFF / EHP [facility] [id number] 2021-Present [address] [place] [address] EPO [id number] 2021 Private Health Insurance [id number] 2021 Unknown [id number] 2015 Unknown ATTN PT FINANCIA L S SELF PAY DD5 [id number] 2015-Present [address] [place] [address] Indemnity [id number] Social History Date Type Detail Facility Start: 07-26-2012 Tobacco smoking status NHIS Never smoked tobacco [facility] Start: 07-17-2021 End: 12-26-2024 Alcohol intake Current drinker of alcohol (finding) [facility] Start: 05-17-2020 History SDOH Social Connections Phone 3 [facility] Start: 05-17-2020 History SDOH Social Connections Get Together 2 [facility] Start: 05-17-2020 History SDOH Social Connections Jehovah[employer] 1 [facility] Start: 05-17-2020 History SDOH Physical Activity DPW 0 [facility] Start: 1970 Sex Assigned At Not on file [facility] Start: 06-09-2021 End: 01-31-2022 Exposure to SARS-CoV-2 (event) Not sure [facility] Start: 07-26-2012 Tobacco use and exposure Smokeless tobacco non-user [facility] Work Phone: Start: 1970 Sex Assigned At Female [facility] Start: 05-17-2020 End: 08-27-2022 History of Social function [facility] Work Phone: Start: 05-17-2020 End: 08-27-2022 Social connection and isolation panel [facility] Work Phone: Do you belong to any clubs or organizations such as [employer], [employer], [employer] or [employer], or school groups? No [facility] Work Phone: Are you now , , , , never or living with a partner? [facility] Work Phone: Start: 03-13-2012 Adult Depression Screening Assessment 5 [facility] Work Phone: Do you feel stress - tense, restless, nervous, or anxious, or unable to sleep at night because your mind is troubled all the time - these days [OSQ] To some extent [facility] Work Phone: Start: 07-14-2022 Gender identity Identifies as female gender (finding) [facility] Start: 07-14-2022 Sexual orientation Heterosexual (finding) [facility] Do you belong to any clubs or organizations such as [employer] groups, [employer], [employer] or athletic groups, or school groups? Yes [facility] How often to you hav e a drink containing alcohol? Monthly or less [facility] How many standard dr inks containing alcohol do you have on a typical day? 1 or 2 [facility] How often do you hav e 6 or more drinks on 1 occasion? Never [facility] Do you feel stress - tense, restless, nervous, or anxious, or unable to sleep at night because your mind is troubled all the time - these days [OSQ] Very much [facility] (I/We) worried devon richmond (my/our) food would run out before (I/we) got money to buy more. Never true [facility] Medical Equipment Procedure Code Equipment Code Equipment Origin al Text Equipment Identifier Dates Component Triath julissa 3 Pa Femoral Cruciate Retain Bead Knee Left - [id number] Start: 05-10-2023 Baseplate Triath luisa 3 Tritanium 44mm 67mm Tibial Sterile Latex Free - [id number] Start: 05-10-2023 Insert Triathlon 3 10mm Tibial Bearing Condylar Stabilize Sterile Knee - [id number] Start: 05-10-2023 Component 32mm Tritanium 10mm Patellar Asymmetric - [id number] Start: 05-10-2023 Functional Status Date Assessment Result Facility 10-31-2024 Total score [AUDIT-C] 1 11/01/19 11:25 AM EDT User, Chris [facility] 10-31-2024 How often to you hav e a drink containing alcohol? Monthly or less 10/31/2024 11:25 AM EDT User, Chris Monthly or less [facility] 10-31-[address] inks containing alcohol do you have on a typical day? 1 or 2 10/31/2024 11:25 AM EDT User, Chris 1 or 2 [facility] 10-31-2024 How often do you hav e 6 or more drinks on 1 occasion? Never 10/31/2024 11:25 AM EDT UserChris Never [facility] 05-12-2023 Are you deaf, or do you have serious difficulty hearing No 05/12/2023 11:35 AM Gina Cook RN No [facility] 05-12-2023 Are you blind, or do you have serious difficulty seeing, even when wearing glasses No 05/12/2023 11:35 AM Gina Cook RN No [facility] 05-12-2023 Do you have serious difficulty walking or climbing stairs No 05/12/2023 11:35 AM Gina Cook, PAMELLA No [facility] 05-12-2023 Do you have difficul ty dressing or bathing No 05/12/2023 11:35 AM Gina Cook, PAMELLA No [facility] 05-12-2023 Because of a physica l, mental, or emotional condition, do you have difficulty doing errands alone such as visiting a physician's office or shopping Yes 05/12/2023 11:35 AM Gina Cook RN Yes [facility] Mental Status Date Assessment Result Facility 05-12-2023 Because of a physica l, mental, or emotional condition, do you have serious difficulty concentrating, remembering, or making decisions No 05/12/2023 11:35 AM Gina Cook RN No [facility] Clinical Notes 10-22-2015 to 12-26-2024 Vernon Nicole OD - 12/26/2024 1:59 PM EDTBAnna williamson Mammo Tech - 12/05/2024 10:30 AM EDTTelephone Encounter - Nenita Veronica LPN - 11/22/2024 3:23 PM EDTPatient Instructions Note Date & Type Note Facility 12-26-2024 Note HNO ID: [id number] Author: VERNON NICOLE OD Service: ? Author Type: Cash Accounting Clerk Type: Progress Notes Filed: 12/26/2024 14:00 Note Text: 1. Myopia, bilateral (Primary) 2. Presbyopia Good vision, fit, and comfort in new contact lenses. Dispensed multiple trials and patient to let me know which combo she prefers. Finalized spec rx. Educated pt on proper wear and care of contact lenses and to discontinue lens wear and follow-up with any redness/pain/decreased vision. 3. Regular astigmatism of both eyes Mild- monitor Follow-up in 1 year for complete with cl eval or sooner prn I have confirmed and edited as necessary the relevant HPI, ophthalmic history, ROS, and the neuro exam findings as obtained by others. I have seen and examined Doris Grace. I have discussed the case and the management of this patient's care with the Resident/Fellow, if applicable. I also have reviewed and agree with the assessment and plan as stated above and agree with all of its relevant components. Vernon Nicole, OD December 26, 2024 1:59 PM [facility] 12-26-2024 History of Present illness Narrative 1. Myopia, bilateral (Primary) 2. Presbyopia Good vision, fit, and comfort in new contact lenses. Dispensed multiple trials and patient to let me know which combo she prefers. Finalized spec rx. Educated pt on proper wear and care of contact lenses and to discontinue lens wear and follow-up with any redness/pain/decreased vision. 3. Regular astigmatism of both eyes Mild- monitor Follow-up in 1 year for complete with cl eval or sooner prn I have confirmed and edited as necessary the relevant HPI, ophthalmic history, ROS, and the neuro exam findings as obtained by others. I have seen and examined Doris Grace. I have discussed the case and the management of this patient's care with the Resident/Fellow, if applicable. I also have reviewed and agree with the assessment and plan as stated above and agree with all of its relevant components. Vernon Nicole, OD December 26, 2024 1:59 PM documented in this encounter [facility] 12-05-2024 History of Present illness Narrative Radiology Service Progress Note PATIENT NAME: Doris Grace DATE OF SERVICE: December 05, 2024 TIME: 11:34 AM PATIENT IDENTITY VERIFICATION COMPLETED USING TWO (2) IDENTIFIERS: Name and Date of confirmed by patient verbally. FALL SCREENING: Has the patient had 2 falls in the last year or 1 fall with injury or currently using an Ambulatory Assistive Device (Walker, Cane, Wheelchair, Crutches, etc.)? No PATIENT GENDER DATA: Assigned female at . status: : No status: NO. PATIENT RELEVANT IMPLANT DATA REVIEWED: Not Applicable PATIENT PRESENTS WITH AN IMPLANTABLE OR ATTACHED SUPPORT SERVICES TECH: No RADIOLOGY DEPARTMENT: Mammography PERIPHERAL IV DATA: Not applicable SIGNED BY: Julio C Boland December 05, 2024 11:34 AM documented in this encounter [facility] 12-05-2024 Note HNO ID: [id number] Author: ANNA MAGALLANES Mammo Tech Service: ? Author Type: Watch Caser Type: Progress Notes Filed: 12/05/2024 11:34 Note Text: Radiology Service Progress Note PATIENT NAME: Doris Grace DATE OF SERVICE: December 05, 2024 TIME: 11:34 AM PATIENT IDENTITY VERIFICATION COMPLETED USING TWO (2) IDENTIFIERS: Name and Date of confirmed by patient verbally. FALL SCREENING: Has the patient had 2 falls in the last year or 1 fall with injury or currently using an Ambulatory Assistive Device (Walker, Cane, Wheelchair, Crutches, etc.)? No PATIENT GENDER DATA: Assigned female at . status: : No status: NO. PATIENT RELEVANT IMPLANT DATA REVIEWED: Not Applicable PATIENT PRESENTS WITH AN IMPLANTABLE OR ATTACHED SUPPORT SERVICES TECH: No RADIOLOGY DEPARTMENT: Mammography PERIPHERAL IV DATA: Not applicable SIGNED BY: Julio C Boland December 05, 2024 11:34 AM [facility] 11-22-2024 Telephone encounter Note Patient needs to contact office. Nenita Veronica LPN [facility] 11-22-2024 Miscellaneous Notes Patient needs to contact office. Nenita Veronica LPN documented in this encounter [facility] 10-31-2024 Note HNO ID: [id number] Author: HEENA BIRCH APRN.ARAM Service: ? Author Type: Nurse Practitioner Type: Progress Notes Filed: 10/31/2024 14:25 Note Text: SUBJECTIVE Doris Grace is a 54 year old female here today for a check up on her medical problems. Chief Complaint Patient presents with: Acute Visit: Elevated bp and stress HPI Doris Grace is a 54 year old female. She is an established patient who presents today for concerns of blood pressure being elevated with home monitoring and having increased stress. Extra stress at work right now, feeling more anxiety. Using ativan more. Headaches more but might be from more stress. In the past has taken zoloft, effexor, paxil. Side effects with those. Home bp elevated but cuff was small for her. Her medications were reviewed today and her list is now up to date. Medications Current Outpatient Medications Medication Sig omeprazole (PRILOSEC) 20 mg capsule Take 1 capsule by mouth once daily. NAPROXEN ORAL Take by mouth. cyclobenzaprine (FLEXERIL) 10 mg tablet Take 1 tablet by mouth three times a day as needed for muscle spasm. ondansetron orally disintegrating (ZOFRAN ODT) 8 mg disintegrating tablet Take 1 tablet by mouth every 8 hours as needed for nausea/vomiting. fexofenadine (TELLY) 180 mg tablet Take 1 tablet by mouth once daily. ibuprofen (MOTRIN) 600 mg tablet Take 600 mg by mouth every 6 hours. acetaminophen (TYLENOL) 500 mg tablet Take 2 tablets by mouth every 8 hours as needed for pain. albuterol HFA (PROVENTIL HFA, VENTOLIN HFA) 90 mcg/actuation inhaler Inhale 2 Puffs as instructed every 4 hours as needed (for cough, wheezing, chest tightness or shortness of breath. Use with spacer. ). clobetasol (TEMOVATE) 0.05 % ointment Apply selectively to spots or lesions of eczematous and psoriasiform dermatitis of elbows and lower legs: once to twice per day for up to 2-4 weeks or less as needed until clear and then try to stop or taper off to a bland emollient cream such as CeraVe cream (or Cetaphil cream) as able. AVOID deep fold areas, face, eyes, and eyelids with the Clobetasol. multivit-min/ferrous fumarate (MULTI VITAMIN ORAL) Take 1 tablet by mouth once daily. Patient should start on May 13, 2023. LORazepam (ATIVAN) 0.5 mg tab Take 1 tablet by mouth twice daily as needed. (Patient taking differently: Take 0.5 mg by mouth two times a day as needed (anxiety ). Takes once daily NEEDED) fluticasone 50 mcg/actuation nasal spray Use 2 Sprays in each nostril once daily. Rinse mouth after use. Cholecalciferol, Vitamin D3, 25 mcg (1,000 unit) cap Take 1,000 Units by mouth once daily. buPROPion XL (WELLBUTRIN XL) 300 mg 24 hr tablet Take 1 tablet by mouth once daily. estradiol (ESTRACE) 1 mg tablet Take 1 tablet by mouth once daily. FLUoxetine (PROZAC) 10 mg capsule Take 1 capsule by mouth once daily. amoxicillin (AMOXIL) 500 mg capsule Take 4 capsules by mouth one hour prior to dental cleaning/procedure benzonatate (TESSALON PERLE) 100 mg capsule Take 2 capsules by mouth three times a day as needed. (Patient not taking: Reported on 10/31/2024) No current facility-administered medications for this visit. ALLERGIES Allergen Reactions Cat Hair Extract Dog Hair Dust Feldene [Piroxicam] BRUISING Grass Pollen Horse Hair And Dand* Mold Seldane Other: See Comments Heart palpitations Trees ACTIVE PROBLEM LIST Obesity, Class I, Bmi 30-34.9 - 10/22/2023 S/P Total Knee Arthroplasty, Left - 05/11/2023 Anxiety - 05/03/2023 Obesity, Class II, Bmi 35-39.9 - 02/08/2023 Primary Osteoarthritis of Both Knees - 02/08/2023 Arthritis of Left Knee - 03/19/2022 Recurrent Major Depressive Disorder, in Partial Remission - 01/22/2022 Gastroesophageal Reflux Disease Without Esophagitis - 03/19/2017 Mild Intermittent Asthma Without Complication (Hcc) - 03/19/2017 Tear of Medial Meniscus of Knee Joint - 02/09/2017 Comment: Added automatically from request for surgery [id number] Myopia, Bilateral - 08/19/2015 H/O Total Hysterectomy With Removal of Both Tubes and Ovaries - 10/01/2011 Eczematous Dermatitis - 09/29/2011 Other Psoriasis - 09/29/2011 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 Cardiovascular: Negative. Psychiatric/Behavioral: The patient is nervous/anxious. OBJECTIVE BP 124/85 Pulse 79 Wt 202 lb 13.2 oz (92.0kg) SpO2 98% Physical Exam Vitals and nursing note reviewed. Constitutional: General: (more content not included)... [facility] 10-31-2024 History of Present illness Narrative SUBJECTIVE Doris Grace is a 54 year old female here today for a check up on her medical problems. Chief Complaint Patient presents with: Acute Visit: Elevated bp and stress HPI Doris Grace is a 54 year old female. She is an established patient who presents today for concerns of blood pressure being elevated with home monitoring and having increased stress. Extra stress at work right now, feeling more anxiety. Using ativan more. Headaches more but might be from more stress. In the past has taken zoloft, effexor, paxil. Side effects with those. Home bp elevated but cuff was small for her. Her medications were reviewed today and her list is now up to date. Medications Current Outpatient Medications Medication Sig omeprazole (PRILOSEC) 20 mg capsule Take 1 capsule by mouth once daily. NAPROXEN ORAL Take by mouth. cyclobenzaprine (FLEXERIL) 10 mg tablet Take 1 tablet by mouth three times a day as needed for muscle spasm. ondansetron orally disintegrating (ZOFRAN ODT) 8 mg disintegrating tablet Take 1 tablet by mouth every 8 hours as needed for nausea/vomiting. fexofenadine (TELLY) 180 mg tablet Take 1 tablet by mouth once daily. ibuprofen (MOTRIN) 600 mg tablet Take 600 mg by mouth every 6 hours. acetaminophen (TYLENOL) 500 mg tablet Take 2 tablets by mouth every 8 hours as needed for pain. albuterol HFA (PROVENTIL HFA, VENTOLIN HFA) 90 mcg/actuation inhaler Inhale 2 Puffs as instructed every 4 hours as needed (for cough, wheezing, chest tightness or shortness of breath. Use with spacer. ). clobetasol (TEMOVATE) 0.05 % ointment Apply selectively to spots or lesions of eczematous and psoriasiform dermatitis of elbows and lower legs: once to twice per day for up to 2-4 weeks or less as needed until clear and then try to stop or taper off to a bland emollient cream such as CeraVe cream (or Cetaphil cream) as able. AVOID deep fold areas, face, eyes, and eyelids with the Clobetasol. multivit-min/ferrous fumarate (MULTI VITAMIN ORAL) Take 1 tablet by mouth once daily. Patient should start on May 13, 2023. LORazepam (ATIVAN) 0.5 mg tab Take 1 tablet by mouth twice daily as needed. (Patient taking differently: Take 0.5 mg by mouth two times a day as needed (anxiety ). Takes once daily NEEDED) fluticasone 50 mcg/actuation nasal spray Use 2 Sprays in each nostril once daily. Rinse mouth after use. Cholecalciferol, Vitamin D3, 25 mcg (1,000 unit) cap Take 1,000 Units by mouth once daily. buPROPion XL (WELLBUTRIN XL) 300 mg 24 hr tablet Take 1 tablet by mouth once daily. estradiol (ESTRACE) 1 mg tablet Take 1 tablet by mouth once daily. FLUoxetine (PROZAC) 10 mg capsule Take 1 capsule by mouth once daily. amoxicillin (AMOXIL) 500 mg capsule Take 4 capsules by mouth one hour prior to dental cleaning/procedure benzonatate (TESSALON PERLE) 100 mg capsule Take 2 capsules by mouth three times a day as needed. (Patient not taking: Reported on 10/31/2024) No current facility-administered medications for this visit. ALLERGIES Allergen Reactions Cat Hair Extract Dog Hair Dust Feldene [Piroxicam] BRUISING Grass Pollen Horse Hair And Dand* Mold Seldane Other: See Comments Heart palpitations Trees ACTIVE PROBLEM LIST Obesity, Class I, Bmi 30-34.9 - 10/22/2023 S/P Total Knee Arthroplasty, Left - 05/11/2023 Anxiety - 05/03/2023 Obesity, Class II, Bmi 35-39.9 - 02/08/2023 Primary Osteoarthritis of Both Knees - 02/08/2023 Arthritis of Left Knee - 03/19/2022 Recurrent Major Depressive Disorder, in Partial Remission - 01/22/2022 Gastroesophageal Reflux Disease Without Esophagitis - 03/19/2017 Mild Intermittent Asthma Without Complication (Hcc) - 03/19/2017 Tear of Medial Meniscus of Knee Joint - 02/09/2017 Comment: Added automatically from request for surgery [id number] Myopia, Bilateral - 08/19/2015 H/O Total Hysterectomy With Removal of Both Tubes and Ovaries - 10/01/2011 Eczematous Dermatitis - 09/29/2011 Other Psoriasis - 09/29/2011 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 Cardiovascular: Negative. Psychiatric/Behavioral: The patient is nervous/anxious. OBJECTIVE BP 124/85 Pulse 79 Wt 202 lb 13.2 oz (92.0kg) SpO2 98% Physical Exam Vitals and nursing note reviewed. Constitutional: General: She is awake. She is not in acute distress. Appearance: Normal appearance. She is well-developed and well-groomed. She is not ill-appearing, toxic-appearing or diaphoretic. HENT: Head: Normocephalic. Right Ear: External ear normal. Left Ear: External ear normal. Nose: Nose normal. Eyes: General: Vision grossly intact. Conjunctiva/sclera: Conjunctivae normal. Pupils: Pupils are equal, round, and reactive to light. Neck: Vascular: No JVD. Trachea: Trachea normal. Pulmonary: Effort: Pulmonary effort is normal. No accessory muscle usage, prolonged expiration or respiratory distress. Musculoskeletal: Cervical back: Neck supple. Skin: General: Skin is warm and dry. Capillary Refill: Capillary refill takes less than 2 seconds. Neurological: General: No focal deficit present. Mental Status: She is alert and oriented to person, place, and time. Mental status is at baseline. Psychiatric: Attention and Perception: Attention and perception normal. Mood and Affect: Mood and affect normal. Speech: Speech normal. Behavior: Behavior normal. Behavior is cooperative. Thought Content: Thought content normal. Cognition and Memory: Cognition and memory normal. Judgment: Judgment normal. ASSESSMENT/PLAN: 1. Anxiety - ICD9: 300.00, ICD10: F41.9 (primary diagnosis) Anxiety/depression worse right now. Continue Wellbutrin, add Prozac. Discussed new medication including but not limited to reason for use, possible side effects, administration, signs and symptoms to monitor for and when to seek medical attention. - BUPROPION XL 300 MG 24 HR TAB - FLUOXETINE 10 MG CAPSULE 2. Adjustment disorder with mixed anxiety and depressed mood - ICD9: 309.28, ICD10: F43.23 See above. - BUPROPION XL 300 MG 24 HR TAB - FLUOXETINE 10 MG CAPSULE 3. Hot flashes due to menopause - ICD9: 627.2, ICD10: N95.1 Continue current medicine. - ESTRADIOL 1 MG TABLET 4. Elevated blood pressure reading without diagnosis of hypertension - ICD9: 796.2, ICD10: R03.0 - Encouraged dietary sodium restriction/DASH diet - Recommended regular aerobic exercise. - Recommend home blood pressure monitoring, to bring results in on next visit - Goal of BP <130/80 Medical Decision Making: Problems: Moderate: 1+ chronic illnesses with change Risk: Moderate: Drug management Medical Decision Making Level: 4 - Moderate Portions of this note have been entered by ancillary staff. I have reviewed and when necessary edited, so that they are an adequate record of my encounter with this patient Please note that parts of this document were created using voice recognition software and therefore may contain grammatical errors. Patient verbalizes understanding of instructions from today's visit and in agreement with treatment plan. Questions answered. Agrees to call the office if questions, concerns of issues with acute symptoms not improving or if they worsen. See diagnoses and orders for additional plan(s). Allergies and medications were reviewed, list was updated, and refills given if needed. Past medical, surgical, social, and family history reviewed and updated as appropriate. Encouraged proper diet & exercise as well as compliance with taking medications. Age-appropriate health preventative measures were discussed. . Return if symptoms worsen or fail to improve. Heena Birch APRN-ARAM documented in this encounter [facility] 10-31-2024 History of Present illness Narrative Radiology Service Progress Note PATIENT NAME: Doris Grace DATE OF SERVICE: October 31, 2024 TIME: 11:20 AM PATIENT IDENTITY VERIFICATION COMPLETED USING TWO (2) IDENTIFIERS: Name and Date of confirmed by patient verbally. FALL SCREENING: Has the patient had 2 falls in the last year or 1 fall with injury or currently using an Ambulatory Assistive Device (Walker, Cane, Wheelchair, Crutches, etc.)? No PATIENT GENDER DATA: Assigned female at . status: : No status: NO. PATIENT RELEVANT IMPLANT DATA REVIEWED: Not Applicable PATIENT PRESENTS WITH AN IMPLANTABLE OR ATTACHED SUPPORT SERVICES TECH: No RADIOLOGY DEPARTMENT: Mammography PERIPHERAL IV DATA: Not applicable SIGNED BY: RT Jp(R) October 31, 2024 11:20 AM documented in this encounter [facility] 10-31-2024 Note HNO ID: [id number] Author: LOURDES JJ RT(R) Service: ? Author Type: Technologist Type: Progress Notes Filed: 10/31/2024 11:20 Note Text: Radiology Service Progress Note PATIENT NAME: Doris Grace DATE OF SERVICE: October 31, 2024 TIME: 11:20 AM PATIENT IDENTITY VERIFICATION COMPLETED USING TWO (2) IDENTIFIERS: Name and Date of confirmed by patient verbally. FALL SCREENING: Has the patient had 2 falls in the last year or 1 fall with injury or currently using an Ambulatory Assistive Device (Walker, Cane, Wheelchair, Crutches, etc.)? No PATIENT GENDER DATA: Assigned female at . status: : No status: NO. PATIENT RELEVANT IMPLANT DATA REVIEWED: Not Applicable PATIENT PRESENTS WITH AN IMPLANTABLE OR ATTACHED SUPPORT SERVICES TECH: No RADIOLOGY DEPARTMENT: Mammography PERIPHERAL IV DATA: Not applicable SIGNED BY: RT Jp(R) October 31, 2024 11:20 AM [facility] 08-02-2024 Note Formatting of this n ote might be different from the original. Reached out by email to complete a program update. All 2024 goals reviewed. [facility] 08-02-2024 Miscellaneous Notes Reached out by email to complete a program update. All 2024 goals reviewed. documented in this encounter [facility] 08-02-2024 Telephone encounter Note Order pending please review if correct. [facility] 08-02-2024 Miscellaneous Notes Order pending please review if correct. documented in this encounter [facility] 07-17-2024 Telephone encounter Note Prescription Refill Information The patient has been identified by name and date of : Yes Caregiver verified no other encounters exist for this prescription request: Yes Caregiver confirmed with patient/requestor that no other refills are due, in the near future, with this provider at this time: Yes The last office visit in the department: 03/28/24 Does the patient have a future office visit with this provider/department: No Requested Prescriptions Pending Prescriptions Disp Refills omeprazole (PRILOSEC) 20 mg capsule 90 capsule 3 Sig: Take 1 capsule by mouth once daily. Doris Grace LPN July 17, 2024 10:13 AM [facility] 07-17-2024 Miscellaneous Notes Prescription Refill Information The patient has been identified by name and date of : Yes Caregiver verified no other encounters exist for this prescription request: Yes Caregiver confirmed with patient/requestor that no other refills are due, in the near future, with this provider at this time: Yes The last office visit in the department: 03/28/24 Does the patient have a future office visit with this provider/department: No Requested Prescriptions Pending Prescriptions Disp Refills omeprazole (PRILOSEC) 20 mg capsule 90 capsule 3 Sig: Take 1 capsule by mouth once daily. oDris Grace LPN July 17, 2024 10:13 AM documented in this encounter [facility] 06-02-2024 Note HNO ID: [id number] Author: EVANGELINA ZAMBRANO MD Service: ? Author Type: Physician Type: Progress Notes Filed: 06/30/2024 23:27 Note Text: DR. ZAMBRANO- POST-OP KNEE Post-Op F/U Office Visit Doris Grace presents today for a 1 year status post Left TKA. Post-operative recovery was uneventful. Patient's rating of condition: improving Does the Pt. still experience pain? PAIN EVALUATION 06/02/2024 1123 Pain Level: 5 Pain Location: Knee-Left Description: Stiffness pinching Frequency: Intermittent Intervention/Comfort measure: Positioning Functional difficulties: None Physical Therapy: Completed course of therapy Pain Medication: None Ambulating without assistance. Medications and Allergies reviewed and verified. EXAM: GEN: AANDO x3, NAD SKIN:Appropriate postop appearance Incision intact Incision well healed LeftKnee: ROM: Flexion/Extension:0 degrees to 120 degrees Pain with ROM:No Mal-alignment: No Effusion: None Non Tender to palpation of the medial , lateral , and patellofemoral joint line(s). Stability:Anterior/Posterior- Yes, stable and Varus/Valgus- Yes, stable Quad strength: normal HIP: range of motion no loss ROM NV: intact and Catherine's negative IMAGING: Xrays: Implants are well aligned. Implants are well fixed. There is no evidence of loosening. There is evidence of osteo-integration. There is no evidence of osteolysis. Patella is well positioned. IMPRESSION/PLAN: 53 year old female s/p Left TKA No complaints or limitations. At normal post-operative stage of recovery. Plan: 1. Continue independent range of motion/strengthening exercises 2. We reviewed total knee precautions including antibiotic prophylactic protocols for dental procedures 3. Follow-up 5 years for repeat clinical/radiographic evaluation or sooner should she develop any new orthopedic problems Evangelina Zambrano MD Electronic Signature [facility] 06-02-2024 History of Present illness Narrative Images from the original note were not included. DR. ZAMBRANO- POST-OP KNEE Post-Op F/U Office Visit Doris Grace presents today for a 1 year status post Left TKA. Post-operative recovery was uneventful. Patient's rating of condition: improving Does the Pt. still experience pain? PAIN EVALUATION 06/02/2024 1123 Pain Level: 5 Pain Location: Knee-Left Description: Stiffness pinching Frequency: Intermittent Intervention/Comfort measure: Positioning Functional difficulties: None Physical Therapy: Completed course of therapy Pain Medication: None Ambulating without assistance. Medications and Allergies reviewed and verified. EXAM: GEN: A&O x3, NAD SKIN:Appropriate postop appearance Incision intact Incision well healed LeftKnee: ROM: Flexion/Extension:0 degrees to 120 degrees Pain with ROM:No Mal-alignment: No Effusion: None Non Tender to palpation of the medial , lateral , and patellofemoral joint line(s). Stability:Anterior/Posterior- Yes, stable and Varus/Valgus- Yes, stable Quad strength: normal HIP: range of motion no loss ROM NV: intact and Catherine's negative IMAGING: Xrays: Implants are well aligned. Implants are well fixed. There is no evidence of loosening. There is evidence of osteo-integration. There is no evidence of osteolysis. Patella is well positioned. IMPRESSION/PLAN: 53 year old female s/p Left TKA No complaints or limitations. At normal post-operative stage of recovery. Plan: 1. Continue independent range of motion/strengthening exercises 2. We reviewed total knee precautions including antibiotic prophylactic protocols for dental procedures 3. Follow-up 5 years for repeat clinical/radiographic evaluation or sooner should she develop any new orthopedic problems Evangelina Zmabrano MD Electronic Signature documented in this encounter [facility] 06-02-2024 History of Present illness Narrative Radiology Service Progress Note PATIENT NAME: Doris Grace DATE OF SERVICE: June 02, 2024 TIME: 11:22 AM PATIENT IDENTITY VERIFICATION COMPLETED USING TWO (2) IDENTIFIERS: Name and Date of confirmed by patient verbally. FALL SCREENING: Has the patient had 2 falls in the last year or 1 fall with injury or currently using an Ambulatory Assistive Device (Walker, Cane, Wheelchair, Crutches, etc.)? No PATIENT GENDER DATA: Assigned female at . status: : No status: NO. PATIENT RELEVANT IMPLANT DATA REVIEWED: Not Applicable PATIENT PRESENTS WITH AN IMPLANTABLE OR ATTACHED SUPPORT SERVICES TECH: No RADIOLOGY DEPARTMENT: General X-ray: Exam(s) Completed: Lower Extremity X-Ray(s): Knee, AP / Lat / Merchant Left and Wt. Bearing PERIPHERAL IV DATA: Not applicable SIGNED BY: Aminah Calderón June 02, 2024 11:22 AM documented in this encounter [facility] 06-02-2024 Note HNO ID: [id number] Author: NYDIA DURBIN Tech Service: Radiology Author Type: Watch Caser Type: Progress Notes Filed: 06/02/2024 11:23 Note Text: Radiology Service Progress Note PATIENT NAME: Doirs Grace DATE OF SERVICE: June 02, 2024 TIME: 11:22 AM PATIENT IDENTITY VERIFICATION COMPLETED USING TWO (2) IDENTIFIERS: Name and Date of confirmed by patient verbally. FALL SCREENING: Has the patient had 2 falls in the last year or 1 fall with injury or currently using an Ambulatory Assistive Device (Walker, Cane, Wheelchair, Crutches, etc.)? No PATIENT GENDER DATA: Assigned female at . status: : No status: NO. PATIENT RELEVANT IMPLANT DATA REVIEWED: Not Applicable PATIENT PRESENTS WITH AN IMPLANTABLE OR ATTACHED SUPPORT SERVICES TECH: No RADIOLOGY DEPARTMENT: General X-ray: Exam(s) Completed: Lower Extremity X-Ray(s): Knee, AP / Lat / Merchant Left and Wt. Bearing PERIPHERAL IV DATA: Not applicable SIGNED BY: Aminah Calderón June 02, 2024 11:22 AM [facility] 03-28-2024 Note HNO ID: [id number] Author: ARA CASSIDY APRN.ASSOCIATE MERCHANDISE PLANNER Service: ? Author Type: Nurse Practitioner Type: Progress Notes Filed: 03/28/2024 12:44 Note Text: CC: Patient presents with: Sinusitis HPI: Doris Grace is a 53 year old female who presents to the office with above complaint Symptoms began 8 days ago and are about the same Symptoms include: Temperature elevation: No Chills: No Cough: Yes non-productive Shortness of breath: No Fatigue: Yes Muscle aches: No Headache: Yes New loss of smell or taste: No Sore throat: Yes Nasal congestion: Yes Rhinorrhea: Yes with yellow mucus Nausea and/or vomiting: No Diarrhea: No Other Associated symptoms: none. PMH: seasonal/environmental allergies OTC meds/remedies that patient has tried: OTC cold medicine- Nyquil and Sudafed. Review of Systems See HPI PAST MEDICAL HISTORY Diagnosis Date Abdominal pain, epigastric Abdominal pain, right lower quadrant Adjustment disorder with depressed mood Allergic rhinitis due to other allergen Esophagitis, unspecified Exercise-induced asthma possible, no spirometry in past Internal hemorrhoids without mention of complication Irritable bowel syndrome PMH - PAST MEDICAL HISTORY OF acme Superficial injury of hip, thigh, leg, and ankle ACL/MCL PARTIALLY TORN Temporomandibular joint sounds on opening and/or closing the jaw PAST SURGICAL HISTORY Procedure Laterality Date ARTHROSCOPY KNEE DIAGNOSTIC W/WO SYNOVIAL BX SPX Left 03/2017 Arthroscopy, knee COLONOSCOPY FLX DX W/COLLJ SPEC WHEN PFRMD 11/23/2005 Normal COLONOSCOPY FLX DX W/COLLJ SPEC WHEN PFRMD 09/23/2020 EGD TRANSORAL BIOPSY SINGLE/MULTIPLE 12/19/2008 Gastritis ESOPHAGOGASTRODUODENOSCOPY TRANSORAL DIAGNOSTIC 09/23/2020 LAPS ABD PRTMANDOMENTUM DX W/WO SPEC BR/WA SPX Laparoscopy for endometriosis LAPS ABD PRTMANDOMENTUM DX W/WO SPEC BR/WA SPX Laparoscopy for endometriosis REM LESION FACE,EAR,EYEL <5MM 06/30/2006 EXCISION LESION NASAL BRIDGE REM LESION FACE,EAR,EYEL <5MM 06/30/2006 LEFT INNER CANTHUS TOTAL ABDOMINAL HYSTERECT W/WO RMVL TUBE OVARY 2003 Hysterectomy for endometriosis, GABRIEL and BSO TOTAL KNEE REPLACEMENT Left 05/10/2023 ALLERGIES Cat Hair Extract, Dog Hair, Dust, Feldene [Piroxicam], Grass Pollen, Horse Hair And Dander, Mold, Seldane, and Trees MEDICATIONS traZODone (DESYREL) 50 mg tablet Take 1-2 tablets by mouth daily at bedtime. estradiol (ESTRACE) 1 mg tablet Take 1 tablet by mouth once daily. amoxicillin (AMOXIL) 500 mg capsule Take 4 capsules by mouth one hour prior to dental cleaning/procedure estradiol (ESTRACE) 1 mg tablet Take 1 tablet by mouth once daily. NAPROXEN ORAL Take by mouth. benzonatate (TESSALON PERLE) 100 mg capsule Take 2 capsules by mouth three times a day as needed. cyclobenzaprine (FLEXERIL) 10 mg tablet Take 1 tablet by mouth three times a day as needed for muscle spasm. ondansetron orally disintegrating (ZOFRAN ODT) 8 mg disintegrating tablet Take 1 tablet by mouth every 8 hours as needed for nausea/vomiting. buPROPion XL (WELLBUTRIN XL) 300 mg 24 hr tablet Take 1 tablet by mouth once daily. fexofenadine (TELLY) 180 mg tablet Take 1 tablet by mouth once daily. omeprazole (PRILOSEC) 20 mg capsule Take 1 capsule by mouth once daily. ibuprofen (MOTRIN) 600 mg tablet Take 600 mg by mouth every 6 hours. acetaminophen (TYLENOL) 500 mg tablet Take 2 tablets by mouth every 8 hours as needed for pain. albuterol HFA (PROVENTIL HFA, VENTOLIN HFA) 90 mcg/actuation inhaler Inhale 2 Puffs as instructed every 4 hours as needed (for cough, wheezing, chest tightness or shortness of breath. Use with spacer. ). clobetasol (TEMOVATE) 0.05 % ointment Apply selectively to spots or lesions of eczematous and psoriasiform dermatitis of elbows and lower legs: once to twice per day for up to 2-4 weeks or less as needed until clear and then try to stop or taper off to a bland emollient cream such as CeraVe cream (or Cetaphil cream) as able. AVOID deep fold areas, face, eyes, and eyelids with the Clobetasol. multivit-min/ferrous fumarate (MULTI VITAMIN ORAL) Take 1 tablet by mouth once daily. Patient should start on May 13, 2023. LORazepam (ATIVAN) 0.5 mg tab Take 1 tablet by mouth twice daily as needed. (Patient taking differently: Take 0.5 mg by mouth two times a day as needed (anxiety ).) fluticasone 50 mcg/actuation nasal spray Use 2 Sprays in each nostril once daily. Rinse mouth after use. Cholecalciferol, Vitamin D3, 25 mcg (1,000 unit) cap Take 1,000 Units by mouth once daily. FAMILY HISTORY Problem Relation Age of Onset Hypertension Mother Seizures Mother HISTORY OF Cancer Mother CERVICAL Diabetes Mother Pre-diabetic Obesity Mother other (Non-Hodgkin's disease) Father Hypertension Brother Hypertension Maternal Grandmother Diabetes Maternal Grandmother Coronary Artery Disease Maternal Grandmother BYPASS SURGERY Catar (more content not included)... [facility] 03-28-2024 History of Present illness Narrative CC: Patient presents with: Sinusitis HPI: Doris Grace is a 53 year old female who presents to the office with above complaint Symptoms began 8 days ago and are about the same Symptoms include: Temperature elevation: No Chills: No Cough: Yes non-productive Shortness of breath: No Fatigue: Yes Muscle aches: No Headache: Yes New loss of smell or taste: No Sore throat: Yes Nasal congestion: Yes Rhinorrhea: Yes with yellow mucus Nausea and/or vomiting: No Diarrhea: No Other Associated symptoms: none. PMH: seasonal/environmental allergies OTC meds/remedies that patient has tried: OTC cold medicine- Nyquil and Sudafed. Review of Systems See HPI PAST MEDICAL HISTORY Diagnosis Date Abdominal pain, epigastric Abdominal pain, right lower quadrant Adjustment disorder with depressed mood Allergic rhinitis due to other allergen Esophagitis, unspecified Exercise-induced asthma possible, no spirometry in past Internal hemorrhoids without mention of complication Irritable bowel syndrome PMH - PAST MEDICAL HISTORY OF acme Superficial injury of hip, thigh, leg, and ankle ACL/MCL PARTIALLY TORN Temporomandibular joint sounds on opening and/or closing the jaw PAST SURGICAL HISTORY Procedure Laterality Date ARTHROSCOPY KNEE DIAGNOSTIC W/WO SYNOVIAL BX SPX Left 03/2017 Arthroscopy, knee COLONOSCOPY FLX DX W/COLLJ SPEC WHEN PFRMD 11/23/2005 Normal COLONOSCOPY FLX DX W/COLLJ SPEC WHEN PFRMD 09/23/2020 EGD TRANSORAL BIOPSY SINGLE/MULTIPLE 12/19/2008 Gastritis ESOPHAGOGASTRODUODENOSCOPY TRANSORAL DIAGNOSTIC 09/23/2020 LAPS ABD PRTM&OMENTUM DX W/WO SPEC BR/WA SPX Laparoscopy for endometriosis LAPS ABD PRTM&OMENTUM DX W/WO SPEC BR/WA SPX Laparoscopy for endometriosis REM LESION FACE,EAR,EYEL <5MM 06/30/2006 EXCISION LESION NASAL BRIDGE REM LESION FACE,EAR,EYEL <5MM 06/30/2006 LEFT INNER CANTHUS TOTAL ABDOMINAL HYSTERECT W/WO RMVL TUBE OVARY 2003 Hysterectomy for endometriosis, GABRIEL and BSO TOTAL KNEE REPLACEMENT Left 05/10/2023 ALLERGIES Cat Hair Extract, Dog Hair, Dust, Feldene [Piroxicam], Grass Pollen, Horse Hair And Dander, Mold, Seldane, and Trees MEDICATIONS traZODone (DESYREL) 50 mg tablet Take 1-2 tablets by mouth daily at bedtime. estradiol (ESTRACE) 1 mg tablet Take 1 tablet by mouth once daily. amoxicillin (AMOXIL) 500 mg capsule Take 4 capsules by mouth one hour prior to dental cleaning/procedure estradiol (ESTRACE) 1 mg tablet Take 1 tablet by mouth once daily. NAPROXEN ORAL Take by mouth. benzonatate (TESSALON PERLE) 100 mg capsule Take 2 capsules by mouth three times a day as needed. cyclobenzaprine (FLEXERIL) 10 mg tablet Take 1 tablet by mouth three times a day as needed for muscle spasm. ondansetron orally disintegrating (ZOFRAN ODT) 8 mg disintegrating tablet Take 1 tablet by mouth every 8 hours as needed for nausea/vomiting. buPROPion XL (WELLBUTRIN XL) 300 mg 24 hr tablet Take 1 tablet by mouth once daily. fexofenadine (TELLY) 180 mg tablet Take 1 tablet by mouth once daily. omeprazole (PRILOSEC) 20 mg capsule Take 1 capsule by mouth once daily. ibuprofen (MOTRIN) 600 mg tablet Take 600 mg by mouth every 6 hours. acetaminophen (TYLENOL) 500 mg tablet Take 2 tablets by mouth every 8 hours as needed for pain. albuterol HFA (PROVENTIL HFA, VENTOLIN HFA) 90 mcg/actuation inhaler Inhale 2 Puffs as instructed every 4 hours as needed (for cough, wheezing, chest tightness or shortness of breath. Use with spacer. ). clobetasol (TEMOVATE) 0.05 % ointment Apply selectively to spots or lesions of eczematous and psoriasiform dermatitis of elbows and lower legs: once to twice per day for up to 2-4 weeks or less as needed until clear and then try to stop or taper off to a bland emollient cream such as CeraVe cream (or Cetaphil cream) as able. AVOID deep fold areas, face, eyes, and eyelids with the Clobetasol. multivit-min/ferrous fumarate (MULTI VITAMIN ORAL) Take 1 tablet by mouth once daily. Patient should start on May 13, 2023. LORazepam (ATIVAN) 0.5 mg tab Take 1 tablet by mouth twice daily as needed. (Patient taking differently: Take 0.5 mg by mouth two times a day as needed (anxiety ).) fluticasone 50 mcg/actuation nasal spray Use 2 Sprays in each nostril once daily. Rinse mouth after use. Cholecalciferol, Vitamin D3, 25 mcg (1,000 unit) cap Take 1,000 Units by mouth once daily. FAMILY HISTORY Problem Relation Age of Onset Hypertension Mother Seizures Mother HISTORY OF Cancer Mother CERVICAL Diabetes Mother Pre-diabetic Obesity Mother other (Non-Hodgkin's disease) Father Hypertension Brother Hypertension Maternal Grandmother Diabetes Maternal Grandmother Coronary Artery Disease Maternal Grandmother BYPASS SURGERY Cataract Maternal Grandmother Glaucoma Maternal Grandmother Obesity Maternal Grandmother Macular Degen Maternal Grandfather other (MACULAR DEGENERATION) Maternal Grandfather Obesity Paternal Grandmother Cancer Paternal Grandfather LUNG, bore miner operator, non smoker Hyperlipidemia Son other (Bicuspid Aortic Valve) Son Social History Tobacco Use Smoking status: Never Smokeless tobacco: Never Vaping Use Vaping status: Never Used Substance Use Topics Alcohol use: Yes Comment: OCCASIONALLY Drug use: No BP 130/82 (BP Site: Left Arm, BP Position: Sitting, BP Cuff Size: Large Adult) Pulse 88 Temp 36.8 C (98.3 F) (Temporal) SpO2 98% Physical Exam Vitals reviewed. Constitutional: Appearance: Normal appearance. HENT: Head: Normocephalic and atraumatic. Right Ear: A middle ear effusion is present. Left Ear: Tympanic membrane normal. Nose: Right Sinus: No maxillary sinus tenderness or frontal sinus tenderness. Left Sinus: No maxillary sinus tenderness or frontal sinus tenderness. Mouth/Throat: Lips: [place]. Mouth: Mucous membranes are moist. Pharynx: Oropharynx is clear. Postnasal drip present. Eyes: Conjunctiva/sclera: Conjunctivae normal. Cardiovascular: Rate and Rhythm: Normal rate and regular rhythm. Heart sounds: Normal heart sounds. No murmur heard. Pulmonary: Effort: Pulmonary effort is normal. Breath sounds: Normal breath sounds. No wheezing, rhonchi or rales. Skin: General: Skin is warm and dry. Neurological: Mental Status: She is alert. ASSESSMENT/PLAN: 1. Acute non-recurrent maxillary sinusitis - ICD9: 461.0, ICD10: J01.00 - Will begin treatment with Augmentin 875 mg PO BID for 7 days - The patient can also continue with OTC cold medications - Supportive care with plenty of fluids, rest, and analgesia prn. - Follow up in 3-5 days if symptoms persist or worsen. Prescription instructions reviewed with patient as applicable. Potential red flag symptoms discussed with the patient. Reviewed appropriate action plan to take if red flag symptoms occur. Patient agreeable to treatment plan. Ara Cassidy APRN.ASSOCIATE MERCHANDISE PLANNER documented in this encounter [facility] 03-20-2024 Note Addended by: GINA KEARNEY on: 03/20/2024 03:36 PM Modules accepted: Orders [facility] 03-20-2024 Miscellaneous Notes Addended by: GINA KEARNEY on: 03/20/2024 03:36 PM Modules accepted: Orders Plan/Patient s insurance requests 90 day supplies on maintenance medications for Home Delivery such as: Please see the attached order for Requested Prescriptions Pending Prescriptions Disp Refills traZODone (DESYREL) 50 mg tablet 180 tablet 1 Sig: Take 1-2 tablets by mouth daily at bedtime. Refused Prescriptions Disp Refills traZODone (DESYREL) 50 mg tablet 180 tablet 1 Sig: Take 1-2 tablets by mouth daily at bedtime. Refused By: VERNELL XIE Reason for Refusal: Request already responded to by other means (for example, phone, fax) If appropriate, e-script to [facility]. Thank you, Gina Kearney [facility] [phone] documented in this encounter [facility] 03-20-2024 Telephone encounter Note Plan/Patient s insurance requests 90 day supplies on maintenance medications for Home Delivery such as: Please see the attached order for Requested Prescriptions Pending Prescriptions Disp Refills traZODone (DESYREL) 50 mg tablet 180 tablet 1 Sig: Take 1-2 tablets by mouth daily at bedtime. Refused Prescriptions Disp Refills traZODone (DESYREL) 50 mg tablet 180 tablet 1 Sig: Take 1-2 tablets by mouth daily at bedtime. Refused By: VERNELL XIE Reason for Refusal: Request already responded to by other means (for example, phone, fax) If appropriate, e-script to [facility]. Thank you, Gina Kearney RPh [facility] [phone] [facility] 03-20-2024 Telephone encounter Note Pharmacist Managed Refill Encounter Name: Doris Grace Refill authorization request(s) received and reviewed under effective consult agreement. The patient consented to the pharmacy service and agreed to allow medications to be collaboratively managed by the pharmacist. The patient may decline or cancel the agreement at any time. Upon review, it was confirmed that an active patient-provider relationship exists, and the prescriber is a participating physician under the consult agreement. Last office visit in this department: 12/28/2023 Heena Birch APRN.CNP Last distance health visit in this department: Visit date not found Next appointment in this department: Visit date not found Requested Prescriptions Pending Prescriptions Disp Refills traZODone (DESYREL) 50 mg tablet 90 tablet 1 Sig: Take 1-2 tablets by mouth daily at bedtime. The medication(s) fall under category 3: Medications fail to meet 1 or more criteria (needing a physician consult and review) necessary for pharmacist approval, routed to provider for review. # of refills routed in this encounter: 1 # of refills approved in this encounter: 0 Brandon Jane RPh [facility] 03-20-2024 Miscellaneous Notes Pharmacist Managed Refill Encounter Name: Doris Grace Refill authorization request(s) received and reviewed under effective consult agreement. The patient consented to the pharmacy service and agreed to allow medications to be collaboratively managed by the pharmacist. The patient may decline or cancel the agreement at any time. Upon review, it was confirmed that an active patient-provider relationship exists, and the prescriber is a participating physician under the consult agreement. Last office visit in this department: 12/28/2023 Heena Birch APRN.CNP Last distance health visit in this department: Visit date not found Next appointment in this department: Visit date not found Requested Prescriptions Pending Prescriptions Disp Refills traZODone (DESYREL) 50 mg tablet 90 tablet 1 Sig: Take 1-2 tablets by mouth daily at bedtime. The medication(s) fall under category 3: Medications fail to meet 1 or more criteria (needing a physician consult and review) necessary for pharmacist approval, routed to provider for review. # of refills routed in this encounter: 1 # of refills approved in this encounter: 0 Brandon Jane RPh documented in this encounter [facility] 03-17-2024 Telephone encounter Note The patient has been identified by name and date of : Yes Caregiver verified no other encounters exist for this prescription request: Yes Caregiver confirmed with patient/requestor that no other refills are due, in the near future, with this provider at this time: Yes The last office visit in the department: 12/28/2023 Does the patient have a future office visit with this provider/department: No Visit date not found Requested Prescriptions Pending Prescriptions Disp Refills estradiol (ESTRACE) 1 mg tablet 90 tablet 3 Sig: Take 1 tablet by mouth once daily. traZODone (DESYREL) 50 mg tablet 90 tablet 1 Sig: Take 1-2 tablets by mouth daily at bedtime. Rachelle Romano LPN March 17, 2024 7:52 AM [facility] 03-17-2024 Miscellaneous Notes The patient has been identified by name and date of : Yes Caregiver verified no other encounters exist for this prescription request: Yes Caregiver confirmed with patient/requestor that no other refills are due, in the near future, with this provider at this time: Yes The last office visit in the department: 12/28/2023 Does the patient have a future office visit with this provider/department: No Visit date not found Requested Prescriptions Pending Prescriptions Disp Refills estradiol (ESTRACE) 1 mg tablet 90 tablet 3 Sig: Take 1 tablet by mouth once daily. traZODone (DESYREL) 50 mg tablet 90 tablet 1 Sig: Take 1-2 tablets by mouth daily at bedtime. Rachelle Romano LPN March 17, 2024 7:52 AM documented in this encounter [facility] 01-31-2024 Telephone encounter Note Pt is waiting on mail away. Requesting rx to [facility] until mail away arrives. Last saw pcp 12/28/23. [facility] 01-31-2024 Miscellaneous Notes Pt is waiting on mail away. Requesting rx to [facility] until mail away arrives. Last saw pcp 12/28/23. documented in this encounter [facility] 01-26-2024 History of Present illness Narrative Radiology Service Progress Note PATIENT NAME: Doris Grace DATE OF SERVICE: January 26, 2024 TIME: 1:16 PM PATIENT IDENTITY VERIFICATION COMPLETED USING TWO (2) IDENTIFIERS: Name and Date of confirmed by patient verbally. FALL SCREENING: Has the patient had 2 falls in the last year or 1 fall with injury or currently using an Ambulatory Assistive Device (Walker, Cane, Wheelchair, Crutches, etc.)? No PATIENT GENDER DATA: Female. status: : No status: NO. PATIENT RELEVANT IMPLANT DATA REVIEWED: Not Applicable PATIENT PRESENTS WITH AN IMPLANTABLE OR ATTACHED SUPPORT SERVICES TECH: No RADIOLOGY DEPARTMENT: General X-ray: Exam(s) Completed: Lower Extremity X-Ray(s): Knee, AP / Lat / Merchant Left and Wt. Bearing PERIPHERAL IV DATA: Not applicable SIGNED BY: Aminah Longoria January 26, 2024 1:16 PM documented in this encounter [facility] 01-26-2024 Note HNO ID: [id number] Author: IBRAHIMA KELLY Tech Service: ? Author Type: Watch Caser Type: Progress Notes Filed: 01/26/2024 13:17 Note Text: Radiology Service Progress Note PATIENT NAME: Doris Grace DATE OF SERVICE: January 26, 2024 TIME: 1:16 PM PATIENT IDENTITY VERIFICATION COMPLETED USING TWO (2) IDENTIFIERS: Name and Date of confirmed by patient verbally. FALL SCREENING: Has the patient had 2 falls in the last year or 1 fall with injury or currently using an Ambulatory Assistive Device (Walker, Cane, Wheelchair, Crutches, etc.)? No PATIENT GENDER DATA: Female. status: : No status: NO. PATIENT RELEVANT IMPLANT DATA REVIEWED: Not Applicable PATIENT PRESENTS WITH AN IMPLANTABLE OR ATTACHED SUPPORT SERVICES TECH: No RADIOLOGY DEPARTMENT: General X-ray: Exam(s) Completed: Lower Extremity X-Ray(s): Knee, AP / Lat / Merchant Left and Wt. Bearing PERIPHERAL IV DATA: Not applicable SIGNED BY: Aminah Longoria January 26, 2024 1:16 PM [facility] 01-26-2024 Note HNO ID: [id number] Author: EVANGELINA ZAMBRANO MD Service: ? Author Type: Physician Type: Progress Notes Filed: 02/23/2024 22:48 Note Text: DR. ZAMBRANO- POST-OP KNEE Post-Op F/U Office Visit Doris Grace presents today for a 8-1/2 months status post Left TKA. Post-operative recovery was uneventful. Patient's rating of condition: improving Comments: Patient reports some mild pain after sitting Does the Pt. still experience pain? PAIN EVALUATION 01/26/2024 1320 Pain Level: 2 Pain Location: Knee-Left Description: Aching;Stiffness Duration Amount of Time: -- ongoing Frequency: Intermittent Intervention/Comfort measure: Positioning;Medication Functional difficulties: Stair climbing Physical Therapy: Yes Pain Medication: Non-narcotic Ambulating without assistance. Medications and Allergies reviewed and verified. EXAM: GEN: MEETO x3, NAD SKIN:Appropriate postop appearance Incision intact Incision well healed LeftKnee: ROM: Flexion/Extension:0 degrees to 115 degrees Pain with ROM:No Mal-alignment: No Effusion: None Tender to palpation of the medial joint line(s). Stability:Anterior/Posterior- Yes, stable and Varus/Valgus- Yes, stable Quad strength: normal HIP: range of motion no loss ROM NV: intact and Catherine's negative IMAGING: Xrays: Implants are well aligned. Implants are well fixed. There is no evidence of loosening. There is evidence of osteo-integration. There is no evidence of osteolysis. Patella is well positioned. IMPRESSION/PLAN: 53 year old female s/p Left TKA At normal post-operative stage of recovery. Plan: 1. Continue independent range of motion/strengthening exercises 2. Continue total knee precautions including use of antibiotics for dental procedures 3. Follow-up 4 months for repeat clinical evaluation Evangelina Zambrano MD [employer] [facility] 01-26-2024 History of Present illness Narrative Images from the original note were not included. DR. ZAMBRANO- POST-OP KNEE Post-Op F/U Office Visit Doris Grace presents today for a 8-1/2 months status post Left TKA. Post-operative recovery was uneventful. Patient's rating of condition: improving Comments: Patient reports some mild pain after sitting Does the Pt. still experience pain? PAIN EVALUATION 01/26/2024 1320 Pain Level: 2 Pain Location: Knee-Left Description: Aching;Stiffness Duration Amount of Time: -- ongoing Frequency: Intermittent Intervention/Comfort measure: Positioning;Medication Functional difficulties: Stair climbing Physical Therapy: Yes Pain Medication: Non-narcotic Ambulating without assistance. Medications and Allergies reviewed and verified. EXAM: GEN: A&O x3, NAD SKIN:Appropriate postop appearance Incision intact Incision well healed LeftKnee: ROM: Flexion/Extension:0 degrees to 115 degrees Pain with ROM:No Mal-alignment: No Effusion: None Tender to palpation of the medial joint line(s). Stability:Anterior/Posterior- Yes, stable and Varus/Valgus- Yes, stable Quad strength: normal HIP: range of motion no loss ROM NV: intact and Catherine's negative IMAGING: Xrays: Implants are well aligned. Implants are well fixed. There is no evidence of loosening. There is evidence of osteo-integration. There is no evidence of osteolysis. Patella is well positioned. IMPRESSION/PLAN: 53 year old female s/p Left TKA At normal post-operative stage of recovery. Plan: 1. Continue independent range of motion/strengthening exercises 2. Continue total knee precautions including use of antibiotics for dental procedures 3. Follow-up 4 months for repeat clinical evaluation Evangelina E Sziraky, MD Electronic Signature documented in this encounter [facility] 12-28-2023 History of Present illness Narrative Images from the original note were not included. SUBJECTIVE Doris Grace is a 53 year old female here today for acute concern. Chief Complaint Patient presents with: Back Pain HPI Doris Grace is a 53 year old female. She is an established patient, presents today acutely for concerns of left middle back/left shoulder pain. She thinks she slept wrong, woke up on the left side with a lot of discomfort and pain. Tried a muscle relaxer, NSAIDs, movement and hot shower, helped a little because pain from 10/10 to 7/10. Being up and moving makes it worse. Her medications were reviewed today and her list is now up to date. Medications Current Outpatient Medications Medication Sig [START ON 12/29/2023] keTORolac (TORADOL) 10 mg tablet Take 1 tablet by mouth every 6 hours as needed for pain for up to 4 days. Patient should start on December 29, 2023. NAPROXEN ORAL Take by mouth. benzonatate (TESSALON PERLE) 100 mg capsule Take 2 capsules by mouth three times a day as needed. cyclobenzaprine (FLEXERIL) 10 mg tablet Take 1 tablet by mouth three times a day as needed for muscle spasm. ondansetron orally disintegrating (ZOFRAN ODT) 8 mg disintegrating tablet Take 1 tablet by mouth every 8 hours as needed for nausea/vomiting. buPROPion XL (WELLBUTRIN XL) 300 mg 24 hr tablet Take 1 tablet by mouth once daily. traZODone (DESYREL) 50 mg tablet Take 1-2 tablets by mouth daily at bedtime. fexofenadine (TELLY) 180 mg tablet Take 1 tablet by mouth once daily. omeprazole (PRILOSEC) 20 mg capsule Take 1 capsule by mouth once daily. ibuprofen (MOTRIN) 600 mg tablet Take 600 mg by mouth every 6 hours. acetaminophen (TYLENOL) 500 mg tablet Take 2 tablets by mouth every 8 hours as needed for pain. estradiol (ESTRACE) 1 mg tablet Take 1 tablet by mouth once daily. albuterol HFA (PROVENTIL HFA, VENTOLIN HFA) 90 mcg/actuation inhaler Inhale 2 Puffs as instructed every 4 hours as needed (for cough, wheezing, chest tightness or shortness of breath. Use with spacer. ). clobetasol (TEMOVATE) 0.05 % ointment Apply selectively to spots or lesions of eczematous and psoriasiform dermatitis of elbows and lower legs: once to twice per day for up to 2-4 weeks or less as needed until clear and then try to stop or taper off to a bland emollient cream such as CeraVe cream (or Cetaphil cream) as able. AVOID deep fold areas, face, eyes, and eyelids with the Clobetasol. multivit-min/ferrous fumarate (MULTI VITAMIN ORAL) Take 1 tablet by mouth once daily. Patient should start on May 13, 2023. LORazepam (ATIVAN) 0.5 mg tab Take 1 tablet by mouth twice daily as needed. (Patient taking differently: Take 0.5 mg by mouth two times a day as needed (anxiety ).) fluticasone 50 mcg/actuation nasal spray Use 2 Sprays in each nostril once daily. Rinse mouth after use. Cholecalciferol, Vitamin D3, 25 mcg (1,000 unit) cap Take 1,000 Units by mouth once daily. Current Facility-Administered Medications Medication Dose Route Frequency keTORolac 60 mg injection (Toradol) 60 mg INTRAMUSCULAR ONCE ALLERGIES Allergen Reactions Cat Hair Extract Dog Hair Dust Feldene [Piroxicam] BRUISING Grass Pollen Horse Hair And Dand* Mold Seldane Other: See Comments Heart palpitations Trees ACTIVE PROBLEM LIST Obesity, Class I, Bmi 30-34.9 - 10/22/2023 S/P Total Knee Arthroplasty, Left - 05/11/2023 Anxiety - 05/03/2023 Obesity, Class II, Bmi 35-39.9 - 02/08/2023 Primary Osteoarthritis of Both Knees - 02/08/2023 Arthritis of Left Knee - 03/19/2022 Recurrent Major Depressive Disorder, in Partial Remission (Hcc) - 01/22/2022 Gastroesophageal Reflux Disease Without Esophagitis - 03/19/2017 Mild Intermittent Asthma Without Complication - 03/19/2017 Tear of Medial Meniscus of Knee Joint - 02/09/2017 Comment: Added automatically from request for surgery [id number] Myopia, Bilateral - 08/19/2015 H/O Total Hysterectomy With Removal of Both Tubes and Ovaries - 10/01/2011 Eczematous Dermatitis - 09/29/2011 Other Psoriasis - 09/29/2011 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 Cardiovascular: Negative. Musculoskeletal: Positive for arthralgias and back pain. OBJECTIVE There were no vitals taken for this visit. Physical Exam Vitals and nursing note reviewed. Constitutional: General: She is awake. She is not in acute distress. Appearance: Normal appearance. She is well-developed and well-groomed. She is not ill-appearing, toxic-appearing or diaphoretic. HENT: Head: Normocephalic. Right Ear: External ear normal. Left Ear: External ear normal. Nose: Nose normal. Eyes: General: Vision grossly intact. Conjunctiva/sclera: Conjunctivae normal. Pupils: Pupils are equal, round, and reactive to light. Neck: Vascular: No JVD. Trachea: Trachea normal. Cardiovascular: Pulses: Normal pulses. Pulmonary: Effort: Pulmonary effort is normal. No accessory muscle usage, prolonged expiration or respiratory distress. Musculoskeletal: Cervical back: Neck supple. Back: Comments: Pain to the left, lower shoulder and paraspinally to the left thoracic. Muscle tension on palpation, tender with firm palpation. Skin: General: Skin is warm and dry. Capillary Refill: Capillary refill takes less than 2 seconds. Neurological: General: No focal deficit present. Mental Status: She is alert and oriented to person, place, and time. Mental status is at baseline. Psychiatric: Attention and Perception: Attention and perception normal. Mood and Affect: Mood and affect normal. Speech: Speech normal. Behavior: Behavior normal. Behavior is cooperative. Thought Content: Thought content normal. Cognition and Memory: Cognition and memory normal. Judgment: Judgment normal. ASSESSMENT/PLAN: 1. Acute pain of left shoulder - ICD9: 719.41, ICD10: M25.512 (primary diagnosis) Pain is localized to the lower, medial shoulder muscle group. Pain on movement and palpable muscle tension/spasm. Continue with muscle relaxer PRN, heat or ice, toradol today, no other NSAIDs while taking toradol, aware of what to monitor for. - KETOROLAC 60 MG/2 ML INTRAMUSCULAR SOLUTION - KETOROLAC 10 MG TABLET 2. Acute left-sided thoracic back pain - ICD9: 724.1, ICD10: M54.6 See #1 - KETOROLAC 60 MG/2 ML INTRAMUSCULAR SOLUTION - KETOROLAC 10 MG TABLET Portions of this note have been entered by ancillary staff. I have reviewed and when necessary edited, so that they are an adequate record of my encounter with this patient Please note that parts of this document were created using voice recognition software and therefore may contain grammatical errors. Patient verbalizes understanding of instructions from today's visit and in agreement with treatment plan. Questions answered. Agrees to call the office if questions, concerns of issues with acute symptoms not improving or if they worsen. See diagnoses and orders for additional plan(s). Allergies and medications were reviewed, list was updated, and refills given if needed. Past medical, surgical, social, and family history reviewed and updated as appropriate. Encouraged proper diet & exercise as well as compliance with taking medications. Age-appropriate health preventative measures were discussed. Return if symptoms worsen or fail to improve, for Keep next scheduled appointment.. Heena Birch APRN-ASSOCIATE [employer] documented in this encounter [facility] 12-23-2023 History of Present illness Narrative 1. Myopia, bilateral 2. Presbyopia 3. Regular astigmatism of both eyes Finalized spec rx- small change Patient not interested in contact lenses at this time- monitor 4. Posterior subcapsular polar age-related cataract of both eyes Very mild- continue to monitor Follow-up in 1 year or sooner as needed Vernon Nicole, CHRIS December 23, 2023 1:55 PM documented in this encounter [facility] 11-19-2023 History of Present illness Narrative Chief Complaint Patient presents with: Acute Visit: Congestion, body aches, cough, chest tightness, sx started last night HPI Doris Grace is a 53 year old female who presents here today for Above Complaints.. Started feeling ill yesterday. Was recently exposed to COVID. Sx-congestion, body aches, cough, chest tightness, scratchy throat, left ear feels full occasionally. No fevers. Was around nephew with runny nose 2 days ago. Past medical history, appointments, medications, allergies reviewed. Previous Medical History PAST MEDICAL HISTORY No date: Abdominal pain, epigastric No date: Abdominal pain, right lower quadrant No date: Adjustment disorder with depressed mood No date: Allergic rhinitis due to other allergen No date: Esophagitis, unspecified No date: Exercise-induced asthma Comment: possible, no spirometry in past No date: Internal hemorrhoids without mention of complication No date: Irritable bowel syndrome No date: PMH - PAST MEDICAL HISTORY OF Comment: acme No date: Superficial injury of hip, thigh, leg, and ankle Comment: ACL/MCL PARTIALLY TORN No date: Temporomandibular joint sounds on opening and/or closing the jaw Previous Surgical History PAST SURGICAL HISTORY 03/2017: ARTHROSCOPY KNEE DIAGNOSTIC W/WO SYNOVIAL BX SPX; Left Comment: Arthroscopy, knee 11/23/2005: COLONOSCOPY FLX DX W/COLLJ SPEC WHEN PFRMD Comment: Normal 09/23/2020: COLONOSCOPY FLX DX W/COLLJ SPEC WHEN PFRMD 12/19/2008: EGD TRANSORAL BIOPSY SINGLE/MULTIPLE Comment: Gastritis 09/23/2020: ESOPHAGOGASTRODUODENOSCOPY TRANSORAL DIAGNOSTIC No date: LAPS ABD PRTM&OMENTUM DX W/WO SPEC BR/WA SPX Comment: Laparoscopy for endometriosis No date: LAPS ABD PRTM&OMENTUM DX W/WO SPEC BR/WA SPX Comment: Laparoscopy for endometriosis 06/30/2006: REM LESION FACE,EAR,EYEL <5MM Comment: EXCISION LESION NASAL BRIDGE 06/30/2006: REM LESION FACE,EAR,EYEL <5MM Comment: LEFT INNER CANTHUS 2003: TOTAL ABDOMINAL HYSTERECT W/WO RMVL TUBE OVARY Comment: Hysterectomy for endometriosis, GABRIEL and BSO 05/10/2023: TOTAL KNEE REPLACEMENT; Left Family History FAMILY HISTORY Problem Relation Age of Onset Hypertension Mother Seizures Mother HISTORY OF Cancer Mother CERVICAL Diabetes Mother Pre-diabetic Obesity Mother other (Non-Hodgkin's disease) Father Hypertension Brother Hypertension Maternal Grandmother Diabetes Maternal Grandmother Coronary Artery Disease Maternal Grandmother BYPASS SURGERY Cataract Maternal Grandmother Glaucoma Maternal Grandmother Obesity Maternal Grandmother Macular Degen Maternal Grandfather other (MACULAR DEGENERATION) Maternal Grandfather Obesity Paternal Grandmother Cancer Paternal Grandfather LUNG, bore miner operator, non smoker Hyperlipidemia Son other (Bicuspid Aortic Valve) Son Patient Allergies ALLERGIES Allergen Reactions Cat Hair Extract Dog Hair Dust Feldene [Piroxicam] BRUISING Grass Pollen Horse Hair And Dand* Mold Seldane Other: See Comments Heart palpitations Trees Current Medications Current Outpatient Medications on File Prior to Visit Medication Sig NAPROXEN ORAL Take by mouth. cyclobenzaprine (FLEXERIL) 10 mg tablet Take 1 tablet by mouth three times a day as needed for muscle spasm. ondansetron orally disintegrating (ZOFRAN ODT) 8 mg disintegrating tablet Take 1 tablet by mouth every 8 hours as needed for nausea/vomiting. buPROPion XL (WELLBUTRIN XL) 300 mg 24 hr tablet Take 1 tablet by mouth once daily. traZODone (DESYREL) 50 mg tablet Take 1-2 tablets by mouth daily at bedtime. fexofenadine (TELLY) 180 mg tablet Take 1 tablet by mouth once daily. omeprazole (PRILOSEC) 20 mg capsule Take 1 capsule by mouth once daily. ibuprofen (MOTRIN) 600 mg tablet Take 600 mg by mouth every 6 hours. acetaminophen (TYLENOL) 500 mg tablet Take 2 tablets by mouth every 8 hours as needed for pain. estradiol (ESTRACE) 1 mg tablet Take 1 tablet by mouth once daily. albuterol HFA (PROVENTIL HFA, VENTOLIN HFA) 90 mcg/actuation inhaler Inhale 2 Puffs as instructed every 4 hours as needed (for cough, wheezing, chest tightness or shortness of breath. Use with spacer. ). clobetasol (TEMOVATE) 0.05 % ointment Apply selectively to spots or lesions of eczematous and psoriasiform dermatitis of elbows and lower legs: once to twice per day for up to 2-4 weeks or less as needed until clear and then try to stop or taper off to a bland emollient cream such as CeraVe cream (or Cetaphil cream) as able. AVOID deep fold areas, face, eyes, and eyelids with the Clobetasol. multivit-min/ferrous fumarate (MULTI VITAMIN ORAL) Take 1 tablet by mouth once daily. Patient should start on May 13, 2023. LORazepam (ATIVAN) 0.5 mg tab Take 1 tablet by mouth twice daily as needed. (Patient taking differently: Take 0.5 mg by mouth two times a day as needed (anxiety ).) fluticasone 50 mcg/actuation nasal spray Use 2 Sprays in each nostril once daily. Rinse mouth after use. Cholecalciferol, Vitamin D3, 25 mcg (1,000 unit) cap Take 1,000 Units by mouth once daily. No current facility-administered medications on file prior to visit. Social History Social History Tobacco Use Smoking status: Never Smokeless tobacco: Never Vaping Use Vaping Use: Never used Substance Use Topics Alcohol use: Yes Comment: OCCASIONALLY Drug use: No Review of Symptoms REVIEW OF SYSTEMS See HPI, otherwise negative EXAM: BP 122/84 (BP Site: Left Arm, BP Position: Sitting, BP Cuff Size: Regular Adult) Pulse 79 Temp 36.6 C (97.8 F) Resp 16 Wt 89.5 kg (197 lb 6.4 oz) SpO2 98% BMI 34.97 kg/m General Appearance: ill-appearing, alert, in no acute distress, well-hydrated, well nourished.. Head: Normocephalic, no masses, lesions, tenderness or abnormalities. Eyes: Anicteric sclera. Pupils are equally round and reactive to light. Extraocular movements are intact. . Ears: fluid bubbles posterior to left TM. Nose/Sinuses: Nares normal, septum midline, mucosa normal, no drainage or sinus tenderness. Oropharynx: Lips, mucosa, and tongue normal, teeth and gums normal, oropharynx normal. Neck: 2+ bilateral submandibular lymphadenopathy. Lungs: Lungs clear to auscultation. No wheezing, rhonchi, rales.. Heart: RRR without murmur, gallop, or rubs. No ectopy. Psychiatric: pleasant, cooperative. Health Maintenance List Influenza Vaccine(1) due on 12/12/2023 Mammogram Screening due on 08/25/2024 Annual PCP Team Chronic Disease Visit due on 10/21/2024 Diabetes Screening due on 10/29/2026 DTaP,Tdap,Td Vaccine(4 - Td or Tdap) due on 08/23/2028 Lipid Screening due on 10/29/2028 Colorectal Cancer Screening due on 09/23/2030 Spirometry Completed Hepatitis C Screening Completed HIV Screening Completed Shingrix Vaccine Completed Cervical Cancer Screening Discontinued Covid-19 Vaccine Discontinued Data reviewed Previous records, office notes ASSESSMENT/PLAN: 1. Body aches - ICD9: 780.96, ICD10: R52 (primary diagnosis) Ok to take Z-ivon if COVID testing is negative over the weekend. Supportive care. - BENZONATATE 100 MG CAPSULE - AZITHROMYCIN 250 MG TABLET - COVID & INFLUENZA A/B & RSV NAAT, ROUTINE 2. Chills - ICD9: 780.64, ICD10: R68.83 Ok to take Z-ivon if COVID testing is negative over the weekend. Supportive care. - BENZONATATE 100 MG CAPSULE - AZITHROMYCIN 250 MG TABLET - COVID & INFLUENZA A/B & RSV NAAT, ROUTINE 3. Sensation of fullness in left ear - ICD9: 388.8, ICD10: H93.8X2 Ok to take Z-ivon if COVID testing is negative over the weekend. Supportive care. - BENZONATATE 100 MG CAPSULE - AZITHROMYCIN 250 MG TABLET - COVID & INFLUENZA A/B & RSV NAAT, ROUTINE 4. Throat irritation - ICD9: 478.29, ICD10: J39.2 Ok to take Z-ivon if COVID testing is negative over the weekend. Supportive care. - BENZONATATE 100 MG CAPSULE - AZITHROMYCIN 250 MG TABLET - COVID & INFLUENZA A/B & RSV NAAT, ROUTINE 5. Chest tightness - ICD9: 786.59, ICD10: R07.89 Ok to take Z-ivon if COVID testing is negative over the weekend. Supportive care. - BENZONATATE 100 MG CAPSULE - AZITHROMYCIN 250 MG TABLET - COVID & INFLUENZA A/B & RSV NAAT, ROUTINE 6. Acute cough - ICD9: 786.2, ICD10: R05.1 Ok to take Z-ivon if COVID testing is negative over the weekend. Supportive care. - BENZONATATE 100 MG CAPSULE - AZITHROMYCIN 250 MG TABLET - COVID & INFLUENZA A/B & RSV NAAT, ROUTINE 7. Persistent cough for 3 weeks or longer - ICD9: 786.2, ICD10: R05.3 Ok to take Z-ivon if COVID testing is negative over the weekend. Supportive care. - BENZONATATE 100 MG CAPSULE - AZITHROMYCIN 250 MG TABLET - COVID & INFLUENZA A/B & RSV NAAT, ROUTINE Cherry Klein APRN.ASSOCIATE [employer] documented in this encounter [facility] 11-16-2023 History of Present illness Narrative Images from the original note were not included. DR. ZAMBRANO- POST-OP KNEE Post-Op F/U Office Visit Doris Grace presents today for a 5-1/2 months status post Left TKA. Post-operative recovery was uneventful. Patient's rating of condition: improving Comments: None Does the Pt. still experience pain? PAIN EVALUATION 10/22/2023 1126 Pain Level: 1 Pain Location: Knee-Left Description: Tightness Duration Amount of Time: -- ongoing Frequency: Intermittent Intervention/Comfort measure: Cold;Relaxation;Medication Functional difficulties: Stair climbing Physical Therapy: Yes Pain Medication: None Ambulating without assistance. Medications and Allergies reviewed and verified. EXAM: GEN: A&O x3, NAD SKIN:Appropriate postop appearance Incision intact Incision well healed LeftKnee: ROM: Flexion/Extension:0 degrees to 110 degrees Pain with ROM:No Mal-alignment: No Effusion: None Tender to palpation of the medial joint line(s). Stability:Anterior/Posterior- Yes, stable and Varus/Valgus- Yes, stable Quad strength: normal HIP: range of motion no loss ROM NV: intact and Catherine's negative IMAGING: Xrays: No x-rays today IMPRESSION/PLAN: 53 year old female s/p Left TKA At normal post-operative stage of recovery. Patient is still having issues with stiffness. I have emphasized the importance of continuing with range of motion/strengthening exercises Plan: 1. Continue independent range of motion/strengthening exercises with emphasis on flexion 2. Continue total knee precautions. We reviewed antibiotic prophylactic protocols for dental procedures 3. Follow-up 6 months for repeat clinical/radiographic evaluation Evangelina Zambrano MD Electronic Signature documented in this encounter [facility] 10-22-2023 History of Present illness Narrative SUBJECTIVE Doris Grace is a 53 year old female here today for a check up on her medical problems. Chief Complaint Patient presents with: Follow Up: medication HPI Doris Grace is a 53 year old female. She is an established patient. Presents today for routine follow up. S/p left knee replacement and feeling like she is starting to feel better. Not as stiff, some muscle tightness at times. Following up with ortho later today. Otherwise doing okay. Would like to change Wellbutrin from the twice daily to once daily. Has been losing weight. Would like hep B testing to determine if vaccination needs updated. Her medications were reviewed today and her list is now up to date. Medications Current Outpatient Medications Medication Sig cyclobenzaprine (FLEXERIL) 10 mg tablet Take 1 tablet by mouth three times a day as needed for muscle spasm. ondansetron orally disintegrating (ZOFRAN ODT) 8 mg disintegrating tablet Take 1 tablet by mouth every 8 hours as needed for nausea/vomiting. buPROPion XL (WELLBUTRIN XL) 300 mg 24 hr tablet Take 1 tablet by mouth once daily. traZODone (DESYREL) 50 mg tablet Take 1-2 tablets by mouth daily at bedtime. fexofenadine (TELLY) 180 mg tablet Take 1 tablet by mouth once daily. omeprazole (PRILOSEC) 20 mg capsule Take 1 capsule by mouth once daily. ibuprofen (MOTRIN) 600 mg tablet Take 600 mg by mouth every 6 hours. acetaminophen (TYLENOL) 500 mg tablet Take 2 tablets by mouth every 8 hours as needed for pain. estradiol (ESTRACE) 1 mg tablet Take 1 tablet by mouth once daily. albuterol HFA (PROVENTIL HFA, VENTOLIN HFA) 90 mcg/actuation inhaler Inhale 2 Puffs as instructed every 4 hours as needed (for cough, wheezing, chest tightness or shortness of breath. Use with spacer. ). clobetasol (TEMOVATE) 0.05 % ointment Apply selectively to spots or lesions of eczematous and psoriasiform dermatitis of elbows and lower legs: once to twice per day for up to 2-4 weeks or less as needed until clear and then try to stop or taper off to a bland emollient cream such as CeraVe cream (or Cetaphil cream) as able. AVOID deep fold areas, face, eyes, and eyelids with the Clobetasol. multivit-min/ferrous fumarate (MULTI VITAMIN ORAL) Take 1 tablet by mouth once daily. Patient should start on May 13, 2023. LORazepam (ATIVAN) 0.5 mg tab Take 1 tablet by mouth twice daily as needed. (Patient taking differently: Take 0.5 mg by mouth two times a day as needed (anxiety ).) fluticasone 50 mcg/actuation nasal spray Use 2 Sprays in each nostril once daily. Rinse mouth after use. Cholecalciferol, Vitamin D3, 25 mcg (1,000 unit) cap Take 1,000 Units by mouth once daily. No current facility-administered medications for this visit. ALLERGIES Allergen Reactions Cat Hair Extract Dog Hair Dust Feldene [Piroxicam] BRUISING Grass Pollen Horse Hair And Dand* Mold Seldane Other: See Comments Heart palpitations Trees ACTIVE PROBLEM LIST Obesity, Class I, Bmi 30-34.9 - 10/22/2023 S/P Total Knee Arthroplasty, Left - 05/11/2023 Anxiety - 05/03/2023 Obesity, Class II, Bmi 35-39.9 - 02/08/2023 Primary Osteoarthritis of Both Knees - 02/08/2023 Arthritis of Left Knee - 03/19/2022 Recurrent Major Depressive Disorder, in Partial Remission (Hcc) - 01/22/2022 Gastroesophageal Reflux Disease Without Esophagitis - 03/19/2017 Mild Intermittent Asthma Without Complication - 03/19/2017 Tear of Medial Meniscus of Knee Joint - 02/09/2017 Comment: Added automatically from request for surgery [id number] Myopia, Bilateral - 08/19/2015 H/O Total Hysterectomy With Removal of Both Tubes and Ovaries - 10/01/2011 Eczematous Dermatitis - 09/29/2011 Other Psoriasis - 09/29/2011 Lichenification and Lichen Simplex Chronicus - 09/29/2011 Internal Hemorrhoids Without Mention of Complication Allergic Rhinitis Due to Other Allergen Adjustment Disorder With Depressed Mood Temporomandibular Joint Sounds On Opening and/Or Closing The Jaw Irritable Bowel Syndrome Social History Tobacco Use Smoking status: Never Smokeless tobacco: Never Vaping Use Vaping Use: Never used Substance Use Topics Alcohol use: Yes Comment: OCCASIONALLY Drug use: No Review of Systems Constitutional: Negative. Respiratory: Negative. Cardiovascular: Negative. OBJECTIVE BP 118/74 Pulse 86 Resp 12 Ht 5' 3 (1.60m) Wt 191 lb (86.6kg) SpO2 98% BMI 33.84 kg/(m^2). Physical Exam Vitals and nursing note reviewed. Constitutional: General: She is awake. She is not in acute distress. Appearance: Normal appearance. She is well-developed and well-groomed. She is not ill-appearing, toxic-appearing or diaphoretic. HENT: Head: Normocephalic. Right Ear: External ear normal. Left Ear: External ear normal. Nose: Nose normal. Eyes: General: Vision grossly intact. Conjunctiva/sclera: Conjunctivae normal. Pupils: Pupils are equal, round, and reactive to light. Neck: Vascular: No JVD. Trachea: Trachea normal. Cardiovascular: Rate and Rhythm: Normal rate and regular rhythm. Pulses: Normal pulses. Heart sounds: Normal heart sounds. No murmur heard. Pulmonary: Effort: Pulmonary effort is normal. No accessory muscle usage, prolonged expiration or respiratory distress. Breath sounds: Normal breath sounds. Musculoskeletal: Cervical back: Neck supple. Skin: General: Skin is warm and dry. Capillary Refill: Capillary refill takes less than 2 seconds. Neurological: General: No focal deficit present. Mental Status: She is alert and oriented to person, place, and time. Mental status is at baseline. Psychiatric: Attention and Perception: Attention and perception normal. Mood and Affect: Mood and affect normal. Speech: Speech normal. Behavior: Behavior normal. Behavior is cooperative. Thought Content: Thought content normal. Cognition and Memory: Cognition and memory normal. Judgment: Judgment normal. ASSESSMENT/PLAN: 1. Primary osteoarthritis of both knees - ICD9: 715.16, ICD10: M17.0 (primary diagnosis) Left knee improving s/p surgery. Right knee still bothersome at times. Managing. 2. Chronic pain of both knees - ICD9: 719.46, 338.29, ICD10: M25.561, M25.562, G89.29 Stable, See #1 3. Status post left knee replacement - ICD9: V43.65, ICD10: Z96.652 Stable, See #1 4. Scoliosis, unspecified scoliosis type, unspecified spinal region - ICD9: 737.30, ICD10: M41.9 Stable. As needed muscle relaxer helpful. - CYCLOBENZAPRINE 10 MG TABLET 5. Muscle spasm of back - ICD9: 724.8, ICD10: M62.830 Stable. - CYCLOBENZAPRINE 10 MG TABLET 6. Obesity, Class I, BMI 30-34.9 - ICD9: 278.00, ICD10: E66.9 Stable. Weight has been decreasing, change Wellbutrin to once daily per her preference. 7. Lipid screening - ICD9: V77.91, ICD10: Z13.220 - LIPID PANEL, NONFASTING 8. Encounter for therapeutic drug monitoring - ICD9: V58.83, ICD10: Z51.81 - COMPLETE BLOOD COUNT AND DIFFERENTIAL - COMPREHENSIVE METABOLIC PANEL 9. Immunity status testing - ICD9: V72.61, ICD10: Z01.84 - HEPATITIS B SURFACE ANTIBODY Portions of this note have been entered by ancillary staff. I have reviewed and when necessary edited, so that they are an adequate record of my encounter with this patient Please note that parts of this document were created using voice recognition software and therefore may contain grammatical errors. Patient verbalizes understanding of instructions from today's visit and in agreement with treatment plan. Questions answered. Agrees to call the office if questions, concerns of issues with acute symptoms not improving or if they worsen. See diagnoses and orders for additional plan(s). Allergies and medications were reviewed, list was updated, and refills given if needed. Past medical, surgical, social, and family history reviewed and updated as appropriate. Encouraged proper diet & exercise as well as compliance with taking medications. Age-appropriate health preventative measures were discussed. Return in about 1 year (around 10/21/2024). JOSE Lund documented in this encounter [facility] 10-07-2023 History of Present illness Narrative Episode Visit Count: 26 Therapist That Will Accept/Oversee The Plan Of Care: Crow Elliott Start of Care Date: 05/31/23 Onset Date: 05/10/23 REHABILITATION AND SPORTS THERAPY PHYSICAL THERAPY TREATMENT NOTE ASSESSMENT: Doris Grace tolerated the session with expected muscle soreness and no issues. She demonstrated improvements in knee range of motion and tolerance for work activities. The patient will continue to benefit from ongoing skilled physical therapy to progress toward set goals. PLAN FOR NEXT VISIT: [place] SUBJECTIVE: Patient doing well today. Has not needed to take any tylenol so far this morning Pain: OBJECTIVE MEASURES WITH LEVEL OF FUNCTION: LE AROM L Knee Extension: -5 Degrees (After LLLD) L Knee Flexion: 102 Degrees TREATMENT: Therapeutic Exercise: 1: SciFit seat 8 x6 min 2: QS 1x10 3: Heel slides x10, 2 rounds with strap assist 4: LLLD knee extension stretch x3 min, 10# Skilled Intervention: Patient was educated in proper exercise technique and purpose for exercises. Skilled judgment was used in selection of appropriate interventions. Provided written instruction for home exercise program to facilitate proper performance and compliance. Correct performance of therapeutic exercises was facilitated with verbal, visual, and tactile cuing. Manual Therapy: 1: STM and stripping to L gastroc and distal quad with push to tolerance Skilled Intervention: Manual skills to improve joint mobility, ROM, and decrease pain. Utilized anatomy knowledge of the therapist, and assessment of patient's response to intervention. Billing Therapeutic Exercise Treatment Minutes: 20 Manual TherapyTreatment Minutes: 5 Skilled Treatment Time Minutes (timed and untimed codes): 25 Total Session Time (minutes): 25 Session Start Time : 1005 Session Stop Time : 1030 Crow Elliott PT documented in this encounter [facility] 09-23-2023 History of Present illness Narrative Episode Visit Count: 25 Therapist That Will Accept/Oversee The Plan Of Care: Crow Elliott Start of Care Date: 05/31/23 Onset Date: 05/10/23 REHABILITATION AND SPORTS THERAPY PHYSICAL THERAPY TREATMENT NOTE ASSESSMENT: Doris Grace tolerated the session with decreased symptoms and no issues. She demonstrated improvements in knee extension ROM, but difficulty with knee flexion. The patient will continue to benefit from ongoing skilled physical therapy to progress toward set goals and to continue with post-operative protocol. PLAN FOR NEXT VISIT: Continue working on ROM, progress strength per tolerance SUBJECTIVE: Patient did a lot of motorcycle riding over the weekend and her knee was really sore Wednesday. Other than that she has felt good this week Pain: Pain Pain Level: 5 Pain Location: Knee - Left Description: Tightness, Stiffness, Aching Frequency: Continuous OBJECTIVE MEASURES WITH LEVEL OF FUNCTION: LE AROM L Knee Extension: -7 Degrees L Knee Flexion: 100 Degrees TREATMENT: Therapeutic Exercise: 1: SciFit seat 8 x6 min (1:! entire time. Patient provided update) 2: QS 4x10 3: Heel slides x10, 2 rounds with strap assist Skilled Intervention: Patient was educated in proper exercise technique and purpose for exercises. Skilled judgment was used in selection of appropriate interventions. Correct performance of therapeutic exercises was facilitated with verbal and visual cuing. Manual Therapy: 1: STM and stripping to L gastroc and distal quad with push to tolerance Skilled Intervention: Manual skills to improve joint mobility, ROM, and decrease pain. Utilized anatomy knowledge of the therapist, and assessment of patient's response to intervention. Billing Therapeutic Exercise Treatment Minutes: 28 Manual TherapyTreatment Minutes: 10 Skilled Treatment Time Minutes (timed and untimed codes): 38 Total Session Time (minutes): 38 Session Start Time : 1230 Session Stop Time : 1308 Crow Elliott PT documented in this encounter [facility] 09-16-2023 History of Present illness Narrative Episode Visit Count: 24 Therapist That Will Accept/Oversee The Plan Of Care: Crow Elliott Start of Care Date: 05/31/23 Onset Date: 05/10/23 REHABILITATION AND SPORTS THERAPY PHYSICAL THERAPY TREATMENT NOTE ASSESSMENT: Doris Grace tolerated the session with decreased symptoms. She demonstrated difficulty with knee range of motion and tolerance for prolonged activity. The patient will continue to benefit from ongoing skilled physical therapy to progress toward set goals. PLAN FOR NEXT VISIT: [place] SUBJECTIVE: patient has been doing well, but she cleaned her house today and her knee feels swollen, achy, and a lot of pressure Pain: Pain Pain Level: 4 Pain Location: Knee - Left Description: Tightness Frequency: Continuous OBJECTIVE MEASURES WITH LEVEL OF FUNCTION: LE AROM L Knee Extension: -9 Degrees L Knee Flexion: 100 Degrees TREATMENT: Therapeutic Exercise: 1: SciFit seat 8 x7 min (1:1 entire time. Patient provided update) 2: QS 4x10 3: Heel slides x10, 2 rounds with strap assist 4: LLLD knee extension stretch x4 min 10# Skilled Intervention: Patient was educated in proper exercise technique and purpose for exercises. Skilled judgment was used in selection of appropriate interventions. Correct performance of therapeutic exercises was facilitated with verbal, visual, and tactile cuing. Manual Therapy: 1: Superficial effleurage x10 min, legs elevated on 2 bolsters 2: STM and stripping to L gastroc, HS, adductors, quads with push to tolerance Skilled Intervention: Manual skills to improve joint mobility, ROM, and decrease pain. Utilized anatomy knowledge of the therapist, and assessment of patient's response to intervention. Billing Therapeutic Exercise Treatment Minutes: 22 Manual TherapyTreatment Minutes: 20 Skilled Treatment Time Minutes (timed and untimed codes): 42 Total Session Time (minutes): 42 Session Start Time : 1230 Session Stop Time : 1312 Crow Elliott PT documented in this encounter [facility] 09-02-2023 History of Present illness Narrative Episode Visit Count: 23 Therapist That Will Accept/Oversee The Plan Of Care: Crow Elliott Start of Care Date: 05/31/23 Onset Date: 05/10/23 REHABILITATION AND SPORTS THERAPY PHYSICAL THERAPY TREATMENT NOTE ASSESSMENT: Doris Grace tolerated the session with decreased symptoms and no issues. She demonstrated improvements in knee range of motion and tolerance for work tasks. The patient will continue to benefit from ongoing skilled physical therapy to progress toward set goals and to continue with post-operative protocol. PLAN FOR NEXT VISIT: Continue working on range of motion, strength per tolerance SUBJECTIVE: Patient flared her knee up by pushing her motorcycle out of the garage. Irritated all week until today Pain: Pain Pain Level: 2 Pain Location: Knee - Left Description: Tightness Frequency: Continuous OBJECTIVE MEASURES WITH LEVEL OF FUNCTION: LE AROM L Knee Extension: -6 Degrees L Knee Flexion: 106 Degrees TREATMENT: Therapeutic Exercise: 1: SciFit seat 8 x5 min 2: QS 4x10 3: Heel slides 4x10, 2 rounds with strap assist Skilled Intervention: Patient was educated in proper exercise technique and purpose for exercises. Skilled judgment was used in selection of appropriate interventions. Provided written instruction for home exercise program to facilitate proper performance and compliance. Correct performance of therapeutic exercises was facilitated with verbal, visual, and tactile cuing. Manual Therapy: 2: STM and stripping to L gastroc, HS, adductors, quads with push to tolerance Skilled Intervention: Manual skills to improve joint mobility, ROM, and decrease pain. Utilized anatomy knowledge of the therapist, and assessment of patient's response to intervention. Billing Therapeutic Exercise Treatment Minutes: 20 Manual TherapyTreatment Minutes: 21 Skilled Treatment Time Minutes (timed and untimed codes): 41 Total Session Time (minutes): 41 Session Start Time : 1233 Session Stop Time : 1314 Crow Elliott PT documented in this encounter [facility] 08-27-2023 Note Formatting of this n ote might be different from the original. August 27, 2023 PID: [id number] Doris Grace [address] [place] [id number] Dear Ms. Grace, We are pleased to inform you that the results of your recent breast imaging exam on 08/26/2023 are normal. Early detection of cancer is very important. We also understand recommendations regarding breast cancer screening are controversial. Please discuss with your primary care provider which strategy is best for you and whether a mammogram is right for you. Your imaging studies and report will be kept on file at [facility] as part of your permanent medical record and are available for your continuing care. Thank you for allowing us to help in meeting your health care needs. Sincerely, Dr. Robles Interpreting Radiologist [facility] (Normal over 40) [facility] 08-27-2023 Miscellaneous Notes August 27, 2023 PID: [id number] Doris Grace [address] [place] [address] Dear Ms. Grace, We are pleased to inform you that the results of your recent breast imaging exam on 08/26/2023 are normal. Early detection of cancer is very important. We also understand recommendations regarding breast cancer screening are controversial. Please discuss with your primary care provider which strategy is best for you and whether a mammogram is right for you. Your imaging studies and report will be kept on file at [facility] as part of your permanent medical record and are available for your continuing care. Thank you for allowing us to help in meeting your health care needs. Sincerely, Dr. Robles Interpreting Radiologist [facility] (Normal over 40) documented in this encounter [facility] 08-26-2023 History of Present illness Narrative Episode Visit Count: 22 Therapist That Will Accept/Oversee The Plan Of Care: Crow Elliott Start of Care Date: 05/31/23 Onset Date: 05/10/23 REHABILITATION AND SPORTS THERAPY PHYSICAL THERAPY TREATMENT NOTE ASSESSMENT: Doris Grace tolerated the session with decreased symptoms and no issues. She demonstrated improvements in knee pain and range of motion post session. The patient will continue to benefit from ongoing skilled physical therapy to progress toward set goals. PLAN FOR NEXT VISIT: Continue manual as needed SUBJECTIVE: Patient continues to do better overall. Notes improved energy throughout the day, decreasing pain, and quicker recovery times Pain: Pain Pain Level: 2 Pain Location: Knee - Left Description: Tightness Frequency: Continuous OBJECTIVE MEASURES WITH LEVEL OF FUNCTION: LE AROM L Knee Extension: -9 Degrees L Knee Flexion: 105 Degrees TREATMENT: Therapeutic Exercise: 1: SciFit seat 8 x5 min (1:1 entire time, discussed progress and pt provided update) 2: QS 2x10, 2 rounds 3: Heel slides 2x10, 2 rounds with strap assist Skilled Intervention: Patient was educated in proper exercise technique and purpose for exercises. Skilled judgment was used in selection of appropriate interventions. Provided written instruction for home exercise program to facilitate proper performance and compliance. Correct performance of therapeutic exercises was facilitated with verbal, visual, and tactile cuing. Manual Therapy: 2: STM and stripping to L gastroc, HS, adductors, quads with push to tolerance Skilled Intervention: Manual skills to improve joint mobility, ROM, and decrease pain. Utilized anatomy knowledge of the therapist, and assessment of patient's response to intervention. Billing Therapeutic Exercise Treatment Minutes: 12 Manual TherapyTreatment Minutes: 27 Skilled Treatment Time Minutes (timed and untimed codes): 39 Total Session Time (minutes): 39 Session Start Time : 1225 Session Stop Time : 1304 Crow Elliott PT documented in this encounter [facility] 08-26-2023 History of Present illness Narrative Radiology Service Progress Note PATIENT NAME: Doris Grace DATE OF SERVICE: August 26, 2023 TIME: 11:21 AM PATIENT IDENTITY VERIFICATION COMPLETED USING TWO (2) IDENTIFIERS: Name and Date of confirmed by patient verbally. FALL SCREENING: Has the patient had 2 falls in the last year or 1 fall with injury or currently using an Ambulatory Assistive Device (Walker, Cane, Wheelchair, Crutches, etc.)? No PATIENT GENDER DATA: Female. status: : No status: NO. PATIENT RELEVANT IMPLANT DATA REVIEWED: Not Applicable PATIENT PRESENTS WITH AN IMPLANTABLE OR ATTACHED SUPPORT SERVICES TECH: No RADIOLOGY DEPARTMENT: Mammography PERIPHERAL IV DATA: Not applicable SIGNED BY: Julio C Maldonado August 26, 2023 11:21 AM documented in this encounter [facility] 08-20-2023 History of Present illness Narrative Episode Visit Count: 21 Therapist That Will Accept/Oversee The Plan Of Care: Crow Elliott Start of Care Date: 05/31/23 Onset Date: 05/10/23 REHABILITATION AND SPORTS THERAPY PHYSICAL THERAPY TREATMENT NOTE ASSESSMENT: Doris Grace tolerated the session with decreased symptoms and no issues. She demonstrated improvements in tolerance for work acitvities. The patient will continue to benefit from ongoing skilled physical therapy to progress toward set goals. PLAN FOR NEXT VISIT: If patient has another good week at work, increase exercise volume and decrease manual SUBJECTIVE: Patient doing better this week. Work has not been as aggrevating to the knee. Sore, tight, tired, but not painful Pain: Pain Pain Level: 1 Pain Location: Knee - Left Description: Tightness Frequency: Continuous OBJECTIVE MEASURES WITH LEVEL OF FUNCTION: LE AROM L Knee Extension: -8 Degrees (-7 after manual) L Knee Flexion: 110 Degrees TREATMENT: Therapeutic Exercise: 1: SciFit seat 8 x5 min (1:1 entire time, discussed progress for work tolerance) 2: QS 2x10 3: Heel slides 2x10 Skilled Intervention: Patient was educated in proper exercise technique and purpose for exercises. Skilled judgment was used in selection of appropriate interventions. Provided written instruction for home exercise program to facilitate proper performance and compliance. Correct performance of therapeutic exercises was facilitated with verbal, visual, and tactile cuing. Manual Therapy: 1: Superficial effleurage x10 min, legs elevated on 2 bolsters 2: STM and stripping to L gastroc, HS, adductors, quads with push to tolerance Skilled Intervention: Manual skills to improve joint mobility, ROM, and decrease pain. Utilized anatomy knowledge of the therapist, and assessment of patient's response to intervention. Billing Therapeutic Exercise Treatment Minutes: 10 Manual TherapyTreatment Minutes: 29 Skilled Treatment Time Minutes (timed and untimed codes): 39 Total Session Time (minutes): 39 Session Start Time : 1713 Session Stop Time : 1752 Crow Elliott PT documented in this encounter [facility] 08-16-2023 History of Present illness Narrative Images from the original note were not included. DR. ZAMBRANO- POST-OP KNEE Post-Op F/U Office Visit Doris Grace presents today for a 10 weeks status post Left TKA. Post-operative recovery was uneventful. Patient's rating of condition: improving Comments: She is still working on regaining range of motion Does the Pt. still experience pain? PAIN EVALUATION 07/18/2023 1521 Pain Level: 4 Pain Location: Knee-Left Description: Aching;Dull;Itching;Numbness;Sharp;Sor e;Stabbing/Not Incision;Stiffness;Tightness Duration Units: Minutes Frequency: Intermittent Intervention/Comfort measure: Medication;Reposition;Relaxation;Cold; Distractions Functional difficulties: Stair climbing and Arising from chair Physical Therapy: Yes Pain Medication: Non-narcotic Ambulating with assistance. Medications and Allergies reviewed and verified. EXAM: GEN: A&O x3, NAD SKIN:Appropriate postop appearance Incision intact Incision well healed LeftKnee: ROM: Flexion/Extension:5 degrees to 100 degrees Pain with ROM:No Mal-alignment: No Effusion: None Tender to palpation of the medial joint line(s). Stability:Anterior/Posterior- Yes, stable and Varus/Valgus- Yes, stable Quad strength: normal HIP: range of motion no loss ROM NV: intact and Catherine's negative IMAGING: Xrays: No x-rays today IMPRESSION/PLAN: 52 year old female s/p Left TKA At normal post-operative stage of recovery. Plan: 1. Continue range of motion/strengthening exercises 2. Continue total knee precautions including antibiotic prophylactic protocols 3. Follow-up for repeat clinical evaluation Evangelina Zambrano MD Electronic Signature documented in this encounter [facility] 08-12-2023 History of Present illness Narrative Episode Visit Count: 20 Therapist That Will Accept/Oversee The Plan Of Care: Crow Elliott Start of Care Date: 05/31/23 Onset Date: 05/10/23 REHABILITATION AND SPORTS THERAPY PHYSICAL THERAPY TREATMENT NOTE ASSESSMENT: Doris Grace tolerated the session with decreased symptoms and expected muscle soreness. She demonstrated improvements in knee range of motion post session. The patient will continue to benefit from ongoing skilled physical therapy to progress toward set goals. PLAN FOR NEXT VISIT: SUBJECTIVE: Patient doing well on her day off today. Notes this week has had its ups and downs, but overall doing better she feels Pain: Pain Pain Level: 1 Pain Location: Knee - Left Description: Tightness Frequency: Continuous OBJECTIVE MEASURES WITH LEVEL OF FUNCTION: LE AROM L Knee Extension: -9 Degrees TREATMENT: Therapeutic Exercise: 1: SciFit seat 8 x5 min (subjective taken, discussed progress for work tolerance. 1:1 entire time) 2: QS 2x10 3: Heel slides 2x10 Skilled Intervention: Patient was educated in proper exercise technique and purpose for exercises. Skilled judgment was used in selection of appropriate interventions. Correct performance of therapeutic exercises was facilitated with verbal cuing. Manual Therapy: 1: Superficial effleurage x10 min, legs elevated on 2 bolsters 2: STM and stripping to L gastroc, HS, adductors, quads with push to tolerance 3: LLLD knee extension stretch x5 min with manaul overpressure from therapist Skilled Intervention: Manual skills to improve joint mobility, ROM, and decrease pain. Utilized anatomy knowledge of the therapist, and assessment of patient's response to intervention. Billing Therapeutic Exercise Treatment Minutes: 10 Manual TherapyTreatment Minutes: 34 Skilled Treatment Time Minutes (timed and untimed codes): 44 Total Session Time (minutes): 44 Session Start Time : 1316 Session Stop Time : 1400 Crow Elliott PT documented in this encounter [facility] 08-12-2023 Telephone encounter Note Requested Prescriptions Pending Prescriptions Disp Refills traZODone (DESYREL) 50 mg tablet 60 tablet 3 Sig: Take 1-2 tablets by mouth daily at bedtime. Date of last office visit in primary care: 02/08/2023 Date of next office visit in primary care: Visit date not found Please advise. Thank you. Sherif Lindsey MA. [facility] 08-12-2023 Miscellaneous Notes Requested Prescriptions Pending Prescriptions Disp Refills traZODone (DESYREL) 50 mg tablet 60 tablet 3 Sig: Take 1-2 tablets by mouth daily at bedtime. Date of last office visit in primary care: 02/08/2023 Date of next office visit in primary care: Visit date not found Please advise. Thank you. Sherif Lindsey MA. documented in this encounter [facility] 08-06-2023 Telephone encounter Note Patient has been identified by name and date of : No Patient phones for refill(s): Requested Prescriptions Pending Prescriptions Disp Refills fexofenadine (TELLY) 180 mg tablet 90 tablet 3 Sig: Take 1 tablet by mouth once daily. Date of last office visit in primary care: 02/08/2023 Date of next office visit in primary care: Visit date not found PATIENT advised to set up appt Please advise. Thank you. Flor Espinal LPN. [facility] Work Phone: 08-06-2023 Miscellaneous Notes Patient has been identified by name and date of : No Patient phones for refill(s): Requested Prescriptions Pending Prescriptions Disp Refills fexofenadine (TELLY) 180 mg tablet 90 tablet 3 Sig: Take 1 tablet by mouth once daily. Date of last office visit in primary care: 02/08/2023 Date of next office visit in primary care: Visit date not found PATIENT advised to set up appt Please advise. Thank you. Flor Espinal LPN. documented in this encounter [facility] 08-05-2023 History of Present illness Narrative Episode Visit Count: 19 Therapist That Will Accept/Oversee The Plan Of Care: Crow Elliott Start of Care Date: 05/31/23 Onset Date: 05/10/23 REHABILITATION AND SPORTS THERAPY PHYSICAL THERAPY TREATMENT NOTE ASSESSMENT: Doris Grace tolerated the session with expected muscle soreness and no issues. She demonstrated difficulty with heel strike in gait cycle, showed improvements in knee extension in PROM after manual therapy. The patient will continue to benefit from ongoing skilled physical therapy to progress toward set goals. PLAN FOR NEXT VISIT: Assess tolerance to session and quality of gait cycle. Assess ease of HEP, as well as implement more standing exercise if tolerated by LLE. SUBJECTIVE: Pt reports to clinic today w/ reports of feeling good today, has mild soreness and reports some tightness in front of knee. Pain: Pain Pain Level: 1 Pain Location: Knee - Left Description: Tightness Frequency: Continuous OBJECTIVE MEASURES WITH LEVEL OF FUNCTION: Pt demonstrated a faster gait cycle today w/o signs of instability, decreased limp. TREATMENT: Therapeutic Exercise: 1: ScI fit Seat 7 x 6min 2: QS 6 holds x20 (towel roll under knee) 3: SLR x15 (Towel roll under leg) 4: SAQ x20 2 hold 5: LLLD knee ext. w/ 5# x5 min 6: Knee slides x20 7: HR, TR to fatigue x1 8: SLS 3x30 Skilled Intervention: Patient was educated in proper exercise technique and purpose for exercises. Reviewed and educated patient on additions/changes for home exercise program as above (*). Skilled judgment was used in selection of appropriate interventions. Correct performance of therapeutic exercises was facilitated with verbal cuing. Educated patient on rationale for performing exercises in regards to increase ease of ADL and ROM and function . Manual Therapy: 1: PROM adductor stretch w/ 5 MET; 20 stretch at end. 2: PROM knee ext and dorsiflexion stretch 3: Efflurage for swelling in L knee w/ leg elevated x 5 min Skilled Intervention: Manual skills to improve joint mobility, ROM, and decrease pain. Utilized anatomy knowledge of the therapist, and assessment of patient's response to intervention. Billing Therapeutic Exercise Treatment Minutes: 36 Manual TherapyTreatment Minutes: 18 Skilled Treatment Time Minutes (timed and untimed codes): 54 Total Session Time (minutes): 54 Session Start Time : 1002 Session Stop Time : 1056 SHERYL Saldana Supervising therapist was present and guided the care of the patient for the entire session on this date. All documentation was reviewed and agreed upon. Crow Elliott PT documented in this encounter [facility] 07-30-2023 History of Present illness Narrative Episode Visit Count: 18 Therapist That Will Accept/Oversee The Plan Of Care: Crow Elliott Start of Care Date: 05/31/23 Onset Date: 05/10/23 REHABILITATION AND SPORTS THERAPY PHYSICAL THERAPY TREATMENT NOTE ASSESSMENT: Doris Grace tolerated the session with fatigue, expected muscle soreness, and no issues. She demonstrated improvements in fatigue at end of session. The patient will continue to benefit from ongoing skilled physical therapy to progress toward set goals. PLAN FOR NEXT VISIT: Assess fatigue over weekend, assess swelling in LLE. Implement more knee ROM and stability exercise based on tolerance. SUBJECTIVE: Pt reports to clinic w/ some improved knee pain. Reports fatigue, accounts the fatigue to working for the first time this week. Pain: Pain Pain Level: 2 Pain Location: Knee - Left Description: Tightness Frequency: Continuous OBJECTIVE MEASURES WITH LEVEL OF FUNCTION: Pt had increased knee flexion in gait cycle today TREATMENT: Therapeutic Exercise: 1: SciFit seat 8 x6 min 2: LLLD knee extension stretch 5# x5 min 3: QS 2x10 4: SLR x15 5: SAQ x15 6: Knee slides x15 Skilled Intervention: Patient was educated in proper exercise technique and purpose for exercises. Reviewed and educated patient on additions/changes for home exercise program\. Skilled judgment was used in selection of appropriate interventions. Educated patient on rationale for performing exercises in regards to increase ease of ADL and ROM and function . Manual Therapy: 1: STM and push to tolerance in medial gastrocnemius, medial hamstring. 2: Elevated efflurage technique for swelling x10 min Skilled Intervention: Manual skills to improve joint mobility, ROM, and decrease pain. Utilized anatomy knowledge of the therapist, and assessment of patient's response to intervention. Billing Therapeutic Exercise Treatment Minutes: 27 Manual TherapyTreatment Minutes: 20 Skilled Treatment Time Minutes (timed and untimed codes): 47 Total Session Time (minutes): 47 Session Start Time : 1114 Session Stop Time : 1201 SHERYL Saldana Supervising therapist was present and guided the care of the patient for the entire session on this date. All documentation was reviewed and agreed upon. Crow Elliott PT documented in this encounter [facility] 07-27-2023 History of Present illness Narrative Episode Visit Count: 17 Therapist That Will Accept/Oversee The Plan Of Care: Crow Elliott Start of Care Date: 05/31/23 Onset Date: 05/10/23 REHABILITATION AND SPORTS THERAPY PHYSICAL THERAPY TREATMENT NOTE ASSESSMENT: Doris Grace tolerated the session with expected muscle soreness and no issues. She demonstrated improvements in stair negotiation. The patient will continue to benefit from ongoing skilled physical therapy to progress toward set goals. PLAN FOR NEXT VISIT: Assess tolerance and adherence to HEP additions. Implement proximal hip strengthening. SUBJECTIVE: Pt reports to clinic w/ similar syptoms. Reports tight feeling. Pt was able to complete work day yesterday w/ some pain, better than initially expected. Pain: Pain Pain Level: 3 Pain Location: Knee - Left Description: Tightness Frequency: Continuous OBJECTIVE MEASURES WITH LEVEL OF FUNCTION: Knee valgus noted with stair negotiation TREATMENT: Therapeutic Exercise: 1: SciFit seat 7 x6min 2: QS 2x10 3: SLR 2x10 4: LLLD knee extension stretch 5# x5 min 5: SAQ 2x15 6: SLS 3x30 7: HR, TR to fatigue x1 8: Steps forward , lateral (Nicole) down (grn) x15 all 9: Knee slides 2x10 10: *SL leg lift 3x10 Skilled Intervention: Patient was educated in proper exercise technique and purpose for exercises. Reviewed and educated patient on additions/changes for home exercise program . Skilled judgment was used in selection of appropriate interventions. Correct performance of therapeutic exercises was facilitated with verbal and tactile cuing. Patient education as noted. Manual Therapy: 1: STM and push to tolerance in medial gastrocnemius, medial hamstring, and glute medius. Skilled Intervention: Manual skills to improve joint mobility, ROM, and decrease pain. Utilized anatomy knowledge of the therapist, and assessment of patient's response to intervention. Self-Nursing Home Management: 1: Added self massage w/ tennis ball x2 min Skilled Intervention: Skilled judgment in the selection of proper modification for activity of daily living/home management based on clinical presentation, deficits, and needs. Educated the patient regarding recommendations and provided written instruction to facilitate compliance. Provided written instruction for activities of daily living techniques to facilitate proper performance and compliance. Billing Therapeutic Exercise Treatment Minutes: 34 Manual TherapyTreatment Minutes: 10 Self-Care/Home Management Treatment Minutes: 3 Skilled Treatment Time Minutes (timed and untimed codes): 47 Total Session Time (minutes): 47 Session Start Time : 1313 Session Stop Time : 1400 SHERYL Saldana Supervising therapist was present and guided the care of the patient for the entire session on this date. All documentation was reviewed and agreed upon. Crow Elliott PT Program_ID:[id number] Access Code: [email or web address] URL: [email or web address] Date: 07-27-2023 Prepared By: Kristy Jo Program Notes Exercises - Supine Quadricep Sets - 1 x daily - 7 x weekly - 3 sets - 10 reps - Active Straight Leg Raise with Quad Set - 1 x daily - 7 x weekly - 3 sets - 10 reps - Seated Hamstring Stretch - 1 x daily - 7 x weekly - 3 sets - 10 reps - Supine Heel Slide - 1 x daily - 7 x weekly - 3 sets - 10 reps - Seated Heel Slide - 1 x daily - 7 x weekly - 3 sets - 10 reps - Ankle Pumps in Elevation - 1 x daily - 7 x weekly - 1 sets - 50 reps - Seated Gastroc Stretch with Strap - 3 x daily - 7 x weekly - 2 sets - 2 reps - Gastroc Stretch with Foot at Wall - 3 x daily - 7 x weekly - 2 sets - 2 reps - Supine Hamstring Stretch with Strap - 3 x daily - 7 x weekly - 2 sets - 2 reps - Seated Hamstring Stretch - 3 x daily - 7 x weekly - 2 sets - 2 reps - Standing Quad Set - 1 x daily - 7 x weekly - 3 sets - 10 reps - Supine Single Knee to Chest - 3 x daily - 7 x weekly - 1 sets - 3 reps - Sidelying Hip Abduction - 1 x daily - 7 x weekly - 3 sets - 10 reps documented in this encounter [facility] 07-23-2023 History of Present illness Narrative Episode Visit Count: 16 Therapist That Will Accept/Oversee The Plan Of Care: Crow Elliott Start of Care Date: 05/31/23 Onset Date: 05/10/23 REHABILITATION AND SPORTS THERAPY PHYSICAL THERAPY TREATMENT NOTE ASSESSMENT: Doris Grace tolerated the session with decreased symptoms and expected muscle soreness. She demonstrated improvements in L knee AROM. The patient will continue to benefit from ongoing skilled physical therapy to progress toward set goals. PLAN FOR NEXT VISIT: Assess tolerance to visit and return to work. Assess ROM exercise as well. SUBJECTIVE: Pt reports to clinic today w/ similar sympoms as prior visit. In good mood for skilled PT. Pain: Pain Pain Level: 2 Pain Location: Knee - Left Description: Tightness, Sore Frequency: Continuous OBJECTIVE MEASURES WITH LEVEL OF FUNCTION: LE AROM L Knee Extension: -7 Degrees (-5 after treatment) L Knee Flexion: 107 Degrees (no change after treatment) TREATMENT: Therapeutic Exercise: 1: SciFit seat 7 x6min 2: QS 2x10 3: SLR 2x10 4: SAQ 2x10 5: LLLD knee extension stretch 5# x5 min 6: Heel slides 2x10 Skilled Intervention: Patient was educated in proper exercise technique and purpose for exercises. Skilled judgment was used in selection of appropriate interventions. Educated patient on rationale for performing exercises in regards to increase ease of ADL and ROM and function . Manual Therapy: 1: PROM knee flex. + Ext. x15 w/ 5 sec holds each 2: STM, stripping, and pin and stretch to L hamstrings and gastroc Skilled Intervention: Manual skills to improve joint mobility, ROM, and decrease pain. Utilized anatomy knowledge of the therapist, and assessment of patient's response to intervention. Billing Therapeutic Exercise Treatment Minutes: 30 Manual TherapyTreatment Minutes: 9 Skilled Treatment Time Minutes (timed and untimed codes): 39 Total Session Time (minutes): 39 Session Start Time : 1030 Session Stop Time : 1109 SHERYL Saldana Supervising therapist was present and guided the care of the patient for the entire session on this date. All documentation was reviewed and agreed upon. Crow Elliott PT documented in this encounter [facility] 07-22-2023 History of Present illness Narrative Episode Visit Count: 15 Therapist That Will Accept/Oversee The Plan Of Care: Crow Elliott Start of Care Date: 05/31/23 Onset Date: 05/10/23 REHABILITATION AND SPORTS THERAPY PHYSICAL THERAPY TREATMENT NOTE ASSESSMENT: Doris Grace tolerated the session with expected muscle soreness and no issues. She demonstrated difficulty with obtaining full knee extension range of motion. The patient will continue to benefit from ongoing skilled physical therapy to progress toward set goals and to continue with post-operative protocol. PLAN FOR NEXT VISIT: Continue working on knee extension range of motion SUBJECTIVE: Patient returns to work on Wednesday. She is concerned about being on her feet so long, but her boss seems very willing to work with her and allow her to build up her endurance Pain: Pain Pain Level: 2 Pain Location: Knee - Left Description: Tightness, Sore OBJECTIVE MEASURES WITH LEVEL OF FUNCTION: LE AROM L Knee Extension: -13 Degrees (-7 post session) TREATMENT: Therapeutic Exercise: 1: SciFit 8 x7 min 2: Quad sets 2x10 3: LLLD knee extension stretch 5# x5 min 4: Heel slides 2x10, 5 sec holds Skilled Intervention: Patient was educated in proper exercise technique and purpose for exercises. Skilled judgment was used in selection of appropriate interventions. Correct performance of therapeutic exercises was facilitated with verbal, visual, and tactile cuing. Manual Therapy: 1: STM, stripping, and pin and stretch to L hamstrings and gastroc Skilled Intervention: Manual skills to improve joint mobility, ROM, and decrease pain. Utilized anatomy knowledge of the therapist, and assessment of patient's response to intervention. Billing Therapeutic Exercise Treatment Minutes: 15 Manual TherapyTreatment Minutes: 15 Self-Care/Home Management Treatment Minutes: 13 Skilled Treatment Time Minutes (timed and untimed codes): 43 Total Session Time (minutes): 43 Session Start Time : 1232 Session Stop Time : 131 Crow Elliott PT Program_ID:[id number] Access Code: [email or web address] URL: [email or web address] Date: 07-20-2023 Prepared By: Kristy Jo Program Notes Exercises - Supine Quadricep Sets - 1 x daily - 7 x weekly - 3 sets - 10 reps - Active Straight Leg Raise with Quad Set - 1 x daily - 7 x weekly - 3 sets - 10 reps - Seated Hamstring Stretch - 1 x daily - 7 x weekly - 3 sets - 10 reps - Supine Heel Slide - 1 x daily - 7 x weekly - 3 sets - 10 reps - Seated Heel Slide - 1 x daily - 7 x weekly - 3 sets - 10 reps - Ankle Pumps in Elevation - 1 x daily - 7 x weekly - 1 sets - 50 reps - Seated Gastroc Stretch with Strap - 3 x daily - 7 x weekly - 2 sets - 2 reps - Gastroc Stretch with Foot at Wall - 3 x daily - 7 x weekly - 2 sets - 2 reps - Supine Hamstring Stretch with Strap - 3 x daily - 7 x weekly - 2 sets - 2 reps - Seated Hamstring Stretch - 3 x daily - 7 x weekly - 2 sets - 2 reps - Standing Quad Set - 1 x daily - 7 x weekly - 3 sets - 10 reps - Supine Single Knee to Chest - 3 x daily - 7 x weekly - 1 sets - 3 reps documented in this encounter [facility] 07-18-2023 History of Present illness Narrative Images from the original note were not included. DR. ZAMBRANO- POST-OP KNEE Post-Op F/U Office Visit Doris Grace presents today for a 6 weeks status post Left TKA. Post-operative recovery was uneventful. Patient's rating of condition: improving Comments: none Does the Pt. still experience pain? PAIN EVALUATION 06/21/2023 1332 Pain Level: 2 Pain Location: Knee-Left Description: Sharp;Radiating;Burning;Dull;Aching;St abbing;Tightness;Stiffness;Numbness Duration Amount of Time: 6 Duration Units: Weeks Frequency: Continuous Intervention/Comfort measure: Medication;Relaxation;Reposition;Cold ibuprofen or tylenol Functional difficulties: Stair climbing and Walking Physical Therapy: Yes Pain Medication: Yes Ambulating with assistance. Medications and Allergies reviewed and verified. EXAM: GEN: A&O x3, NAD SKIN:Appropriate postop appearance Incision intact Incision well healed LeftKnee: ROM: Flexion/Extension:10 degrees to 100 degrees Pain with ROM:No Mal-alignment: No Effusion: None Tender to palpation of the medial and lateral joint line(s). Stability:Anterior/Posterior- Yes, stable and Varus/Valgus- Yes, stable Quad strength: normal HIP: range of motion no loss ROM NV: intact and Catherine's negative IMAGING: Xrays: No x-rays today IMPRESSION/PLAN: 52 year old female s/p Left TKA At normal post-operative stage of recovery. I have emphasized the importance of continuing physical therapy in an attempt to improve range of motion Plan: 1. Continue range of motion/strengthening exercises with physical therapy emphasizing extension exercises 2. We reviewed total knee precautions including antibiotic prophylactic protocols 3. Follow-up for repeat clinical evaluation Evangelina Zambrano MD Electronic Signature documented in this encounter [facility] 07-16-2023 History of Present illness Narrative Episode Visit Count: 14 Therapist That Will Accept/Oversee The Plan Of Care: Crow Elliott Start of Care Date: 05/31/23 Onset Date: 05/10/23 REHABILITATION AND SPORTS THERAPY PHYSICAL THERAPY TREATMENT NOTE ASSESSMENT: Doris Grace tolerated the session with increased symptoms, expected muscle soreness, and no issues. She demonstrated improvements in L knee ROM from initial measurements this visit. The patient will continue to benefit from ongoing skilled physical therapy to progress toward set goals. PLAN FOR NEXT VISIT: Begin more stair training, may use HS curl machine in clinic, use prone quad stretch, and may begin 5 minute holds on LLLD stretches with corporate officer weights (pending patient approval). SUBJECTIVE: Pt reports to clinic w/ L knee pain and tightness normal to TKA. Pt reports less pain, but feels stiffer. Pain: Pain Pain Level: 2 Pain Location: Knee - Left Description: Tightness Frequency: Intermittent OBJECTIVE MEASURES WITH LEVEL OF FUNCTION: LE AROM L Knee Extension: -6 Degrees (-4 after LLLD) L Knee Flexion: 97 Degrees (109 after EOP stretch) TREATMENT: Therapeutic Exercise: 1: SciFit 8 x6 min 2: SAQ/LAQ 2x12 3# 3: TKE BTB 2X20 4: HS curl BTB 2X10 5: SLS 2x30 seconds 6: Leg press 40# 2x10 7: LLLD Knee ext. 4# x 3 min 8: EOP 4x30 seconds Skilled Intervention: Patient was educated in proper exercise technique and purpose for exercises. Skilled judgment was used in selection of appropriate interventions. Correct performance of therapeutic exercises was facilitated with verbal and visual cuing. Educated patient on rationale for performing exercises in regards to increase ease of ADL and ROM and function . Billing Therapeutic Exercise Treatment Minutes: 41 Skilled Treatment Time Minutes (timed and untimed codes): 41 Total Session Time (minutes): 41 Session Start Time : 1030 Session Stop Time : 1111 SHERYL Saldana Supervising therapist was present and guided the care of the patient for the entire session on this date. All documentation was reviewed and agreed upon. Crow Elliott PT documented in this encounter [facility] 07-13-2023 History of Present illness Narrative Episode Visit Count: 13 Therapist That Will Accept/Oversee The Plan Of Care: Crow Elliott Start of Care Date: 05/31/23 Onset Date: 05/10/23 REHABILITATION AND SPORTS THERAPY PHYSICAL THERAPY TREATMENT NOTE ASSESSMENT: Doris Grace tolerated the session with expected muscle soreness and no issues. She demonstrated improvements in LLE ROM. The patient will continue to benefit from ongoing skilled physical therapy to progress toward set goals and increase ind in functional ADLs. PLAN FOR NEXT VISIT: Assess tolerance to visit and begin dynamic warm-up exercises first, then measure LLE ROM, then do stretching to gauge response. SUBJECTIVE: Pt comes to clinic today with reports of less stiffness in knee after relaxing east weekend. In good mood for skilled PT. Pain: Pain Pain Level: 2 Pain Location: Knee - Left Description: Tightness Frequency: Intermittent OBJECTIVE MEASURES WITH LEVEL OF FUNCTION: LE AROM L Knee Extension: -10 Degrees (-10 after LLLD, -6 after quad arcs;-5 after TKEs) L Knee Flexion: 110 Degrees (110 after HS curl with assist from PT) TREATMENT: Therapeutic Exercise: 1: SciFit 8 x6 min 2: LLLD Knee ext. 4# x 3 min 3: EOP 3x30 seconds 4: SAQ/LAQ 2x10 3# 5: TKE BTB 2X20 6: HS curl BTB 2X10 7: SLS 2x30 seconds 8: Leg press 30# 2x12 Skilled Intervention: Patient was educated in proper exercise technique and purpose for exercises. Skilled judgment was used in selection of appropriate interventions. Educated patient on rationale for performing exercises in regards to including balance, increase ease of ADL, and ROM and function . Manual Therapy: 1: Pin and stretch of soleus to patient tolerance Skilled Intervention: Manual skills to improve joint mobility, ROM, and decrease pain. Utilized anatomy knowledge of the therapist, and assessment of patient's response to intervention. Billing Therapeutic Exercise Treatment Minutes: 38 Manual TherapyTreatment Minutes: 2 Skilled Treatment Time Minutes (timed and untimed codes): 40 Total Session Time (minutes): 40 Session Start Time : 916 Session Stop Time : 956 SHERYL Saldana Supervising therapist was present and guided the care of the patient for the entire session on this date. All documentation was reviewed and agreed upon. Crow Elliott PT documented in this encounter [facility] 07-05-2023 History of Present illness Narrative Episode Visit Count: 11 Therapist That Will Accept/Oversee The Plan Of Care: Crow Elliott Start of Care Date: 05/31/23 Onset Date: 05/10/23 REHABILITATION AND SPORTS THERAPY PHYSICAL THERAPY TREATMENT NOTE ASSESSMENT: Doris Grace tolerated the session with expected muscle soreness. She demonstrated difficulty with gait and CKC exercise and improvements in general ROM for LLE. The patient will continue to benefit from ongoing skilled physical therapy to progress toward set goals. PLAN FOR NEXT VISIT: Assess tolerance and adherence to HEP and previous treatment session. SUBJECTIVE: Pt reports to clinic today with tightness and pain in L knee following chores around house. Pt feels that doing all the vacuuming and mopping around their home was the reason for their pain, feeling that they over did it. Pain: Pain Pain Level: 2 Pain Location: Knee - Left Description: Tightness Frequency: Intermittent OBJECTIVE MEASURES WITH LEVEL OF FUNCTION: LE AROM L Knee Extension: -8 Degrees L Knee Flexion: 102 Degrees TREATMENT: Therapeutic Exercise: 1: SciFit 9 x 6 min 2: Knee flexion AAROM 3 sec hold x15 3: LLLD knee ext. 4# x 3 min 4: EOP 2x 30 sec 5: SAQ/LAQ X10 2# 6: Leg press 30# x 12 7: Lateral steps 1 nicole x10 8: HR/TR x20 Skilled Intervention: Patient was educated in proper exercise technique and purpose for exercises. Skilled judgment was used in selection of appropriate interventions. Educated patient on rationale for performing exercises in regards to increase ease of ADL and ROM and function . Manual Therapy: 1: STM and CFM to semimambranosus 2: STM and ischemic holds w/ stripping Skilled Intervention: Manual skills to improve joint mobility, ROM, and decrease pain. Utilized anatomy knowledge of the therapist, and assessment of patient's response to intervention. Billing Therapeutic Exercise Treatment Minutes: 36 Manual TherapyTreatment Minutes: 10 Skilled Treatment Time Minutes (timed and untimed codes): 46 Total Session Time (minutes): 46 Session Start Time : 1439 Session Stop Time : 1525 SHERYL Saldana Supervising therapist was present and guided the care of the patient for the entire session on this date. All documentation was reviewed and agreed upon. Crow Elliott PT documented in this encounter [facility] 07-01-2023 History of Present illness Narrative Images from the original note were not included. Episode Visit Count: 10 Therapist That Will Accept/Oversee The Plan Of Care: Crow Elliott Start of Care Date: 05/31/23 Onset Date: 05/10/23 REHABILITATION AND SPORTS THERAPY PHYSICAL THERAPY PROGRESS REPORT PLAN OF CARE UPDATE: Assessment: Doris Grace demonstrates improvements in sitting, rising from a chair, standing, walking, walking in the house, walking in the community, stair negotiation, physical activities, and recreational activities. She has progressed toward goals. Patient continues to present with impairments in ADL's, flexibility, gait, joint mobility, patient reported outcome measures, range of motion, and strength that interfere with walking, walking in the community, stair negotiation, heavy exertion, kneeling, working . Current prognosis is Good due to: current objective clinical presentation, positive past response to therapy, good overall health status, within-session changes . She will benefit from continued skilled therapy services to meet the updated goals for this plan of care as noted below. Goals updated on 07/01/2023. Goals for Episode of Care: created on 05/31/23 through 08/29/23 [place] in home exercise program. met Patient will decrease pain rating by 2 points to meet minimal clinical important difference for numeric pain rating scale. met Patient will increase active ROM of L knee to 0-115 degrees to allow pt to to improve performance of ADLs and to improve gait mechanics / gait pattern . progressing Patient will demonstrate increase in LLE strength to 4+/5 during manual muscle testing or 90% compared to unaffected limp during dynamometer testing in order to improve function for basic self-care tasks, home management tasks, leisure / recreation skills, and work tasks. Progressing towards Perform walking, stairs, and sleeping with decreased report of symptoms/pain in 6-8 weeks. 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 progressing Planned Interventions, Frequency, and Duration: 2x/week, 8 weeks Total Number of Visits Planned: 16 Patient to be seen for Therapeutic exercise (70795), Neuromuscular re-education (54373), Self-fpc management (23549), Therapeutic activities (99182), Manual therapy (75192), Gait Training ([id number]), Body Mechanics Training PLAN FOR NEXT VISIT: Slowly introduce more CKC activity for L knee stability. Assess ease of HEP. Add in proprioceptive training for L knee in form of weight shifts or SL balance. SUBJECTIVE: Pt reports to clinic today with L knee stiffness. Pt reports ind in HEP. Pt reports 0/10 pain at rest during day, and 8/10 during night. Pt reports reciprocal negotiation of stairs ascending and single for descent. Functional Limitations: walking, walking in the community, stair negotiation, heavy exertion, kneeling, working Pain: Pain Pain Level: 0 Pain Location: Knee - Left Description: Tightness Frequency: Intermittent PROMIS Scales 06/28/2023 05/31/2023 04/22/2023 Higher is Better Phys Func - Score 38 (moderate dysfunction) 33 (moderate dysfunction) 41 (mild dysfunction) Phys Func - Percentile 12 4 18 Self-Eff Symptom - Score 42 (Average) 37 (Low) 49 (Average) Self-Eff Symptom - Percentile 21 10 46 T-scores: mean of general population = 50. 5 points is clinically meaningfully difference Percentiles provide an indication of how the patient's score ranks in relation to the general population. Higher percentile rankings indicate better function/quality of life. 50th percentile is the average of the general population and indicates half of respondents had a worse score. OBJECTIVE MEASURES WITH LEVEL OF FUNCTION: LE AROM L Knee Extension: -5 Degrees L Knee Flexion: 100 Degrees LE Strength L Knee Extension (L3): 3+/5 L Knee Flexion: 3/5 Lower Extremity Dynamometer Testing : Yes Dynamometer Strength Right Quadriceps Strength (lbs): 51.8 Left Quadriceps Strength (lbs): 19.4 Quad Strength Limb Symmetry Index (%): 37.45 Right Hamstring Strength (lbs): 41.8 Left Hamstring Strength (lbs): 16.4 Hamstring Strength Limb Symmetry Index(%): 39.23 TREATMENT: Re-evaluation: Performed due to return of patient to therapy for same diagnosis. Therapeutic Exercise: 1: SciFit 8 x 5 min 2: LLLD knee ext. stretch 4# x 3 min 3: Knee bends AAROM supine 4: EOP stretch 2x30 sec 5: TKE w/ GTB X10 6: LAQ x10 7: Lateral stair 1 nicole x10 8: Descent steps 1 grn x10 Skilled Intervention: Patient was educated in proper exercise technique and purpose for exercises. Skilled judgment was used in selection of appropriate interventions. Educated patient on rationale for performing exercises in regards to including balance, increase ease of ADL, and ROM and function . Manual Therapy: 1: STM and push to tolerance Biceps femoris. 2: STM and stripping medial gastrocnemius Skilled Intervention: Manual skills to improve joint mobility, ROM, and decrease pain. Utilized anatomy knowledge of the therapist, and assessment of patient's response to intervention. Billing Therapeutic Exercise Treatment Minutes: 34 Manual TherapyTreatment Minutes: 10 Skilled Treatment Time Minutes (timed and untimed codes): 44 Total Session Time (minutes): 44 Session Start Time : 1502 Session Stop Time : 1546 SHERYL Saldana Supervising therapist was present and guided the care of the patient for the entire session on this date. All documentation was reviewed and agreed upon. Crow Elliott PT documented in this encounter [facility] 06-28-2023 History of Present illness Narrative Episode Visit Count: 9 Therapist That Will Accept/Oversee The Plan Of Care: Crow Elliott Start of Care Date: 05/31/23 Onset Date: 05/10/23 REHABILITATION AND SPORTS THERAPY PHYSICAL THERAPY TREATMENT NOTE ASSESSMENT: Doris Grace tolerated the session with decreased symptoms and no issues. She demonstrated improvements in ROM and quality of gait cycle. The patient will continue to benefit from ongoing skilled physical therapy to increase ind. In ADLs as well as return functional ROM to L knee. PLAN FOR NEXT VISIT: Assess Pt response and tolerance to treatment session and HEP; progress to standing CKC exercises for L knee mobility/stability. SUBJECTIVE: Pt presents to clinic w/ improved symptoms in L knee since last session. Gait is slightly improved in relation to decreased antalgia; improved knee ext. noticed. Pt is in good mood for skilled PT. Pain: Pain Pain Level: 1 Pain Location: Knee - Left Description: Tightness Frequency: Continuous OBJECTIVE MEASURES WITH LEVEL OF FUNCTION: LE AROM L Knee Extension: -5 Degrees (2 degrees of flexion in extension after LLD and QS ex.) L Knee Flexion: 103 Degrees (After AAROM w/ strap: 109) TREATMENT: Therapeutic Exercise: 1: SciFit 9 x5 min 2: LLLD knee extensor stretch x3 min 3# 3: Quadsets x10 3 second holds 4: SLR x10 5: SAQ x10 2 sec. hold 3# 6: LAQ X10 2 sec. hold 7: Knee flex. AAROM 8: HS curl seated GTB x20 9: HR/TR X20 10: TKE W/ ball 5 second hold x Skilled Intervention: Patient was educated in proper exercise technique and purpose for exercises. Skilled judgment was used in selection of appropriate interventions. Educated patient on rationale for performing exercises in regards to ROM and function . Manual Therapy: 1: STM (efflurage to mild pressure perissage) to medial gastroc head and insertion area of semimembranosus. 2: Efflurage for lymph modulation x10 min Skilled Intervention: Manual skills to improve joint mobility, ROM, and decrease pain. Utilized anatomy knowledge of the therapist, and assessment of patient's response to intervention. Billing Therapeutic Exercise Treatment Minutes: 48 Manual TherapyTreatment Minutes: 16 Skilled Treatment Time Minutes (timed and untimed codes): 66 Total Session Time (minutes): 66 Session Start Time : 942 Session Stop Time : 1048 SHERYL Saldana Supervising therapist was present and guided the care of the patient for the entire session on this date. All documentation was reviewed and agreed upon. Crow Elliott PT documented in this encounter [facility] 06-24-2023 History of Present illness Narrative Episode Visit Count: 8 Therapist That Will Accept/Oversee The Plan Of Care: Crow Elliott Start of Care Date: 05/31/23 Onset Date: 05/10/23 REHABILITATION AND SPORTS THERAPY PHYSICAL THERAPY TREATMENT NOTE ASSESSMENT: Doris Grace tolerated the session with expected muscle soreness. She demonstrated difficulty with CKC movements as well as initial ROM and improvements in ROM after treatment. The patient will continue to benefit from ongoing skilled physical therapy to progress toward set goals. PLAN FOR NEXT VISIT: Progress exercises to more CKC, pending Pt. response and symptoms over weekend. Cont. ROM gains for L knee via stretching, full ROM exercises, and STM. SUBJECTIVE: Pt presents to clinic w/ L knee pain following L TKA. Pt. reports L knee feeling sore moreso than usual. Does not notice any change in motion when walking; PT noted that L knee reaches near full terminal extension during gait. Still in good mood for skilled PT. Pain: Pain Pain Level: 2 Pain Location: Knee - Left Description: Tightness, Dull Frequency: Continuous OBJECTIVE MEASURES WITH LEVEL OF FUNCTION: LE AROM L Knee Extension: -16 Degrees (10 after doing LLD stretch and QS) L Knee Flexion: 95 Degrees (98 after doing AAROM heel slides) TREATMENT: Therapeutic Exercise: 1: Sci Fit seat 9 x 5 min 2: LLLD knee extensor stretch x3 min 3# 3: Quadsets x10 3 second holds 4: Heel slides with strap assist 2x10 5: Edge of plinth dangle and flexion stretch 3x30 sec 6: SAQ 2X10 2 sec. hold; 3# 7: HS curl seated GTB 2x10 8: Pro-calf stretch 3x30 sec 9: HR/TR x20ea Skilled Intervention: Patient was educated in proper exercise technique and purpose for exercises. Reviewed and educated patient on additions/changes for home exercise program for gains in ROM for L knee. Educated patient on rationale for performing exercises in regards to ROM and function . Manual Therapy: 1: STM to L gastroc and medial HS to palpable knots with push to tolerance Skilled Intervention: Manual skills to improve joint mobility, ROM, and decrease pain. Utilized anatomy knowledge of the therapist, and assessment of patient's response to intervention. Billing Therapeutic Exercise Treatment Minutes: 35 Manual TherapyTreatment Minutes: 8 Skilled Treatment Time Minutes (timed and untimed codes): 45 Total Session Time (minutes): 45 Session Start Time : 1043 Session Stop Time : 1128 SHERYL Saldana Supervising therapist was present and guided the care of the patient for the entire session on this date. All documentation was reviewed and agreed upon. Crow Elliott PT documented in this encounter [facility] 06-22-2023 History of Present illness Narrative Episode Visit Count: 7 Therapist That Will Accept/Oversee The Plan Of Care: Crow Elliott Start of Care Date: 05/31/23 Onset Date: 05/10/23 REHABILITATION AND SPORTS THERAPY PHYSICAL THERAPY TREATMENT NOTE ASSESSMENT: Doris Grace tolerated the session with fatigue, expected muscle soreness, and no issues. She demonstrated improvements in knee range of motion and tolerance for strength exercises. The patient will continue to benefit from ongoing skilled physical therapy to progress toward set goals and to continue with post-operative protocol. PLAN FOR NEXT VISIT: Continue to progress per post op protocol and patient tolerance SUBJECTIVE: Pt. presents to clinic w/ L knee pain following L TKA. Pt. verbally reported lessening of knee pain, as well as not having to take any medications or NSAID for pain following last session. Is overall in good mood with progress of skilled PT. Pain: Pain Pain Level: 1 Pain Location: Knee - Left Description: Tightness, Dull Frequency: Continuous OBJECTIVE MEASURES WITH LEVEL OF FUNCTION: LE AROM L Knee Extension: 9 Degrees (7 degrees post LLLD, 4 degrees post manual) L Knee Flexion: 98 Degrees (103 after strap assisted heel slides) TREATMENT: Therapeutic Exercise: 1: Sci Fit seat 10 x 5 min 2: LLLD knee extensor stretch x3 min 3# 3: SLR 1.5# 2x10 4: Heel slides with strap assist 2x10 5: Edge of plinth dangle and flexion stretch 3x30 sec 6: Step ups 2x10 forward, 1x10 lateral on 1 blue step 7: Pro-calf stratch 3x30 sec 8: Mini squats x10 Skilled Intervention: Patient was educated in proper exercise technique and purpose for exercises. Skilled judgment was used in selection of appropriate interventions. Correct performance of therapeutic exercises was facilitated with verbal, visual, and tactile cuing. Manual Therapy: 1: STM to L gastroc to palpable knots with push to tolerance 2: Stripping to L biceps femoris with push to tolerance Skilled Intervention: Manual skills to improve joint mobility, ROM, and decrease pain. Utilized anatomy knowledge of the therapist, and assessment of patient's response to intervention. Billing Therapeutic Exercise Treatment Minutes: 31 Manual TherapyTreatment Minutes: 10 Skilled Treatment Time Minutes (timed and untimed codes): 41 Total Session Time (minutes): 41 Session Start Time : 1629 Session Stop Time : 1710 Crow Elliott PT documented in this encounter [facility] 06-18-2023 History of Present illness Narrative Episode Visit Count: 6 Therapist That Will Accept/Oversee The Plan Of Care: Crow Elliott Start of Care Date: 05/31/23 Onset Date: 05/10/23 REHABILITATION AND SPORTS THERAPY PHYSICAL THERAPY TREATMENT NOTE ASSESSMENT: Doris Grace tolerated the session with decreased symptoms, expected muscle soreness, and no issues. She demonstrated improvements in knee range of motion. The patient will continue to benefit from ongoing skilled physical therapy to progress toward set goals. PLAN FOR NEXT VISIT: Continue manual as needed to improve motion, progress strengthening as tolerated. May increase LLLD time to 4 min SUBJECTIVE: Patient presents to clinic w/ L knee pain and tightness following L TKA. Patient reports improvement in L knee pain & stiffness w/ skilled PT. Pain: Pain Pain Level: 1 Pain Location: Knee - Left Description: Tightness, Dull Frequency: Continuous OBJECTIVE MEASURES WITH LEVEL OF FUNCTION: LE AROM L Knee Extension: -13.5 Degrees (Achieved -11 after LLLD stretch) L Knee Flexion: 104 Degrees (105 after exercise) TREATMENT: Therapeutic Exercise: 1: Sci fit seat 10 x 5 min (use as aerobic warm-up to improve quality of community ambulation. 1;1 entire time.) 2: LLLD knee extensor stretch x3 min 3# 3: SLR LLE; x10 4: *Standing TKE x10 5: Step-ups fwd 2x 10 6: Pro-calf stratch 3x30 sec 7: mini-squats with chair posteriorly; 2x10 Skilled Intervention: Patient was educated in proper exercise technique and purpose for exercises. Skilled judgment was used in selection of appropriate interventions. Correct performance of therapeutic exercises was facilitated with verbal, visual, and tactile cuing. Manual Therapy: 1: STM to L gastroc to palpable knots with push to tolerance 2: Stripping to L biceps femoris with push to tolerance Skilled Intervention: Manual skills to improve joint mobility, ROM, and decrease pain. Utilized anatomy knowledge of the therapist, and assessment of patient's response to intervention. Billing Therapeutic Exercise Treatment Minutes: 25 Manual TherapyTreatment Minutes: 13 Skilled Treatment Time Minutes (timed and untimed codes): 38 Total Session Time (minutes): 38 Session Start Time : 1116 Session Stop Time : 1154 Crow Elliott PT documented in this encounter [facility] 06-18-2023 Miscellaneous Notes LAUREEN 02/08/23 NOV not scheduled documented in this encounter [facility] 06-16-2023 History of Present illness Narrative Episode Visit Count: 5 Therapist That Will Accept/Oversee The Plan Of Care: Crow Elliott Start of Care Date: 05/31/23 Onset Date: 05/10/23 REHABILITATION AND SPORTS THERAPY PHYSICAL THERAPY TREATMENT NOTE ASSESSMENT: Doris Grace tolerated the session with decreased symptoms and no issues. She demonstrated improvements in knee range of motion. The patient will continue to benefit from ongoing skilled physical therapy to progress toward set goals. PLAN FOR NEXT VISIT: Continue manual as needed to increase knee extension range of motion SUBJECTIVE: Patient has been keeping her leg elevated and kept on schedule with ibuprofen. Feels her swelling is down some today bc of it. Pain: Pain Pain Level: 2 Pain Location: Knee - Left Description: Tightness, Aching Frequency: Continuous OBJECTIVE MEASURES WITH LEVEL OF FUNCTION: LE AROM L Knee Extension: -17 Degrees (-17 to start session, -15 post LLLD extension stretch, -14 post STM to gastroc, -14 post HS stripping) L Knee Flexion: 103 Degrees TREATMENT: Therapeutic Exercise: 1: SciFit seat 9 x5 min total (subjective taken; 1:1 entire time) 2: Quad sets 2x10 3: Heel slides 2x10 4: LLLD knee extensor stretch x3 min 5# 5: *Standing TKE x10 (issued for HEP 3x/day) Skilled Intervention: Patient was educated in proper exercise technique and purpose for exercises. Skilled judgment was used in selection of appropriate interventions. Provided written instruction for home exercise program to facilitate proper performance and compliance. Correct performance of therapeutic exercises was facilitated with verbal, visual, and tactile cuing. Manual Therapy: 1: STM to L gastroc to palpable knots with push to tolerance 2: Stripping to L biceps femoris with push to tolerance Skilled Intervention: Manual skills to improve joint mobility, ROM, and decrease pain. Utilized anatomy knowledge of the therapist, and assessment of patient's response to intervention. Billing Total Session Time (minutes): 39 Session Start Time : 1630 Session Stop Time : 1709 Crow Elliott PT documented in this encounter [facility] 06-14-2023 History of Present illness Narrative Episode Visit Count: 4 Therapist That Will Accept/Oversee The Plan Of Care: Crow Elliott Start of Care Date: 05/31/23 Onset Date: 05/10/23 REHABILITATION AND SPORTS THERAPY PHYSICAL THERAPY TREATMENT NOTE ASSESSMENT: Doris Grace tolerated the session with expected muscle soreness and no issues. She demonstrated difficulty with knee extension range of motion. The patient will continue to benefit from ongoing skilled physical therapy to progress toward set goals. PLAN FOR NEXT VISIT: Continue knee extension stretching per tolerance SUBJECTIVE: Patient overall doing better, but continues to struggle with knee stiffness Pain: Pain Pain Level: 3 Pain Location: Knee - Left Description: Aching, Dull, Tightness Frequency: Continuous OBJECTIVE MEASURES WITH LEVEL OF FUNCTION: LE AROM L Knee Extension: -15 Degrees (-12.5 post session) L Knee Flexion: 95 Degrees TREATMENT: Therapeutic Exercise: 1: SciFit seat 9 x5 min total 2: Quad sets 2x10 3: Prone hang x2 min 4: Heel slides 2x10 5: LLLD knee extensor stretch x3 min 5# Skilled Intervention: Patient was educated in proper exercise technique and purpose for exercises. Skilled judgment was used in selection of appropriate interventions. Provided written instruction for home exercise program to facilitate proper performance and compliance. Correct performance of therapeutic exercises was facilitated with verbal, visual, and tactile cuing. Manual Therapy: 1: Superficial effleurage with leg elevated on 2 bolsters x10 min Skilled Intervention: Manual skills to improve joint mobility, ROM, and decrease pain. Utilized anatomy knowledge of the therapist, and assessment of patient's response to intervention. Billing Therapeutic Exercise Treatment Minutes: 33 Manual TherapyTreatment Minutes: 10 Skilled Treatment Time Minutes (timed and untimed codes): 43 Total Session Time (minutes): 43 Session Start Time : 1300 Session Stop Time : 1343 Crow Elliott PT Program_ID:[id number] Access Code: [email or web address] URL: [email or web address] Date: 06-11-2023 Prepared By: Kristy Jo Program Notes Exercises - Supine Quadricep Sets - 1 x daily - 7 x weekly - 3 sets - 10 reps - Active Straight Leg Raise with Quad Set - 1 x daily - 7 x weekly - 3 sets - 10 reps - Seated Hamstring Stretch - 1 x daily - 7 x weekly - 3 sets - 10 reps - Supine Heel Slide - 1 x daily - 7 x weekly - 3 sets - 10 reps - Seated Heel Slide - 1 x daily - 7 x weekly - 3 sets - 10 reps - Ankle Pumps in Elevation - 1 x daily - 7 x weekly - 1 sets - 50 reps - Seated Gastroc Stretch with Strap - 3 x daily - 7 x weekly - 2 sets - 2 reps - Gastroc Stretch with Foot at Wall - 3 x daily - 7 x weekly - 2 sets - 2 reps - Supine Hamstring Stretch with Strap - 3 x daily - 7 x weekly - 2 sets - 2 reps - Seated Hamstring Stretch - 3 x daily - 7 x weekly - 2 sets - 2 reps - Standing Quad Set - 1 x daily - 7 x weekly - 3 sets - 10 reps documented in this encounter [facility] 06-08-2023 History of Present illness Narrative Episode Visit Count: 3 Therapist That Will Accept/Oversee The Plan Of Care: Crow Elliott Start of Care Date: 05/31/23 Onset Date: 05/10/23 Patient Identified by Name and Date of : Yes REHABILITATION AND SPORTS THERAPY PHYSICAL THERAPY TREATMENT NOTE ASSESSMENT: Doris Grace tolerated the session with fatigue and expected muscle soreness. She demonstrated difficulty with L knee extension AROM. The patient will continue to benefit from ongoing skilled physical therapy to progress toward set goals. PLAN FOR NEXT VISIT: Continue with manual techniques for improved knee extension ROM. SUBJECTIVE: Pt reports that her knee is stiff and swollen this morning, has been up on it. Pt hopes to go to [place] and swim once she is cleared by her physician. Pain: Pain Pain Level: 3 Pain Location: Knee - Left Description: Aching, Dull, Tightness Frequency: Continuous Post Treatment Pain Post Treatment Pain Level: 0 Post Treatment Pain Location: Knee - Left Post Treatment Pain Description: Sore Post Treatment Symptoms: Pt stated, no real pain at the end of the session, just soreness. OBJECTIVE MEASURES WITH LEVEL OF FUNCTION: LE AROM L Knee Extension: -16 Degrees (then -14 after prone hang) L Knee Flexion: 100 Degrees TREATMENT: Therapeutic Exercise: 1: SciFit seat 9 x5 min total (1:1 throughout. Discussed swelling and having to ice more.) 2: Quad sets 2x10 3: prone hang for knee extension x 3 minutes 4: Heel slides 2x10 with strap 5: SLR x10 6: Step ups on 4 inch step 2x10 Skilled Intervention: Patient was educated in proper exercise technique and purpose for exercises. Reviewed and educated patient on additions/changes for home exercise program as above (*). Skilled judgment was used in selection of appropriate interventions. Correct performance of therapeutic exercises was facilitated with verbal and visual cuing. Manual Therapy: 1: Superficial effleurage with leg elevated on 2 bolsters x10 min Skilled Intervention: Manual skills to improve joint mobility, ROM, and decrease pain. Utilized anatomy knowledge of the therapist, and assessment of patient's response to intervention. Billing Therapeutic Exercise Treatment Minutes: 32 Manual TherapyTreatment Minutes: 10 Skilled Treatment Time Minutes (timed and untimed codes): 42 Total Session Time (minutes): 42 Session Start Time : 1021 Session Stop Time : 1103 KB Kauffman PT documented in this encounter [facility] 06-03-2023 History of Present illness Narrative Episode Visit Count: 2 Therapist That Will Accept/Oversee The Plan Of Care: Crow Elliott Start of Care Date: 05/31/23 Onset Date: 05/10/23 REHABILITATION AND SPORTS THERAPY PHYSICAL THERAPY TREATMENT NOTE ASSESSMENT: Doris Grace tolerated the session with fatigue, expected muscle soreness, and no issues. She demonstrated improvements in knee range of motion. The patient will continue to benefit from ongoing skilled physical therapy to progress toward set goals and to continue with post-operative protocol. PLAN FOR NEXT VISIT: Continue aggressive stretching as tolerated SUBJECTIVE: Patient stiff and tight today, forcing herself to stretch as much as tolerated Pain: Pain Pain Level: 2 Pain Location: Knee - Left Description: Aching, Dull, Tightness Frequency: Continuous OBJECTIVE MEASURES WITH LEVEL OF FUNCTION: LE AROM L Knee Extension: -14 Degrees L Knee Flexion: 99 Degrees TREATMENT: Therapeutic Exercise: 1: SciFit seat 10, progressed to 9 x5 min total (used for increased knee bend today, discussed purpose and progression of exercise) 2: LLLD knee extension stretch 3# x2 min 3: Heel slides 2x10 4: Quad sets 2x10 5: SLR x10 Skilled Intervention: Patient was educated in proper exercise technique and purpose for exercises. Skilled judgment was used in selection of appropriate interventions. Provided written instruction for home exercise program to facilitate proper performance and compliance. Correct performance of therapeutic exercises was facilitated with verbal and visual cuing. Manual Therapy: 1: Superficial effleurage with leg elevated on 2 bolsters x10 min Skilled Intervention: Manual skills to improve joint mobility, ROM, and decrease pain. Utilized anatomy knowledge of the therapist, and assessment of patient's response to intervention. Billing Therapeutic Exercise Treatment Minutes: 32 Manual TherapyTreatment Minutes: 10 Skilled Treatment Time Minutes (timed and untimed codes): 42 Total Session Time (minutes): 42 Session Start Time : 917 Session Stop Time : 1000 Crow Elliott PT Program_ID:[id number] Access Code: [email or web address] URL: [email or web address] Date: 06-03-2023 Prepared By: Kristy Jo Program Notes Exercises - Supine Quadricep Sets - 1 x daily - 7 x weekly - 3 sets - 10 reps - Active Straight Leg Raise with Quad Set - 1 x daily - 7 x weekly - 3 sets - 10 reps - Seated Hamstring Stretch - 1 x daily - 7 x weekly - 3 sets - 10 reps - Supine Heel Slide - 1 x daily - 7 x weekly - 3 sets - 10 reps - Seated Heel Slide - 1 x daily - 7 x weekly - 3 sets - 10 reps - Ankle Pumps in Elevation - 1 x daily - 7 x weekly - 1 sets - 50 reps - Seated Gastroc Stretch with Strap - 3 x daily - 7 x weekly - 2 sets - 2 reps - Gastroc Stretch with Foot at Wall - 3 x daily - 7 x weekly - 2 sets - 2 reps - Supine Hamstring Stretch with Strap - 3 x daily - 7 x weekly - 2 sets - 2 reps - Seated Hamstring Stretch - 3 x daily - 7 x weekly - 2 sets - 2 reps documented in this encounter [facility] 05-31-2023 History of Present illness Narrative Episode Visit Count: 1 Therapist That Will Accept/Oversee The Plan Of Care: Crow Elliott Start of Care Date: 05/31/23 Onset Date: 05/10/23 Patient Identified by Name and Date of : Yes REHABILITATION AND SPORTS THERAPY PHYSICAL THERAPY EVALUATION PLAN OF CARE: Assessment: Doris Grace presents with diagnosis of L TKA that interferes with rising from a chair, stair negotiation, walking in the community, lifting, heavy exertion, bending, physical activities, recreational activities, working, sleeping . She presents with impairments in ADL's, overall function, range of motion, strength, symptom management, and tissue tenderness. PROMIS (Patient-Reported Outcomes Measurement Information System) scores were reviewed and all domains identified as a rehabilitation concern. Prognosis for therapy is Good due to: current objective clinical presentation, good overall health status, acuteness of condition, good support system/ coping skills . She will benefit from skilled therapy services to meet the goals established for this plan of care as noted below. Goals for Episode of Care: created on 05/31/23 through 08/29/23 [place] in home exercise program. Patient will decrease pain rating by 2 points to meet minimal clinical important difference for numeric pain rating scale. Patient will increase active ROM of L knee to 0-115 degrees to allow pt to to improve performance of ADLs and to improve gait mechanics / gait pattern . Patient will demonstrate increase in LLE strength to 4+/5 during manual muscle testing or 90% compared to unaffected limp during dynamometer testing in order to improve function for basic self-care tasks, home management tasks, leisure / recreation skills, and work tasks. Perform walking, stairs, and sleeping with decreased report of symptoms/pain in 6-8 weeks. 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 Planned Interventions, Frequency, and Duration: Current Frequency: 2x/week Duration: 12 weeks Total Number of Visits Planned: 24 Planned Treatment Interventions: Therapeutic exercise (81573), Neuromuscular re-education (77237), Manual therapy (80748), Therapeutic activities (46867), Self-fpc management (92493), Gait Training (07504), Patient/Family/Caregiver Education, Body Mechanics Training PLAN FOR NEXT VISIT: Manual for improved knee extension ROM and pain relief. May try superficial effleurage Patient demonstrates good understanding of plan of care and treatment. The above goals and plan of care were discussed and agreed upon by patient/family. SUBJECTIVE: L TKA 05/10/2023. 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 5 points is clinically meaningfully difference Percentiles provide an indication of how the patient's score ranks in relation to the general population. Higher percentile rankings indicate better function/quality of life. 50th percentile is the average of the general population and indicates half of respondents had a worse score. OBJECTIVE MEASURES WITH LEVEL OF FUNCTION: LE AROM L Knee Extension: -17 Degrees (-15 after foam roller to quads) L Knee Flexion: 88 Degrees LE Strength L LE Strength: minimal quad lag noted with SLR Gait Gait Observation: Major limitation in active knee extension during gait Education: Education Learning/educational needs: Home exercise program, Plan of Care, Changes in Plan of Care, Gait Training, Body Mechanics TREATMENT: PT Treatment Interventions: Therapeutic Exercise, Gait Training Evaluation Therapeutic Exercise: 1: *Quad sets 3x10, 5 sec holds 2: *Seated knee extensions 3x10, 5 sec holds 3: *Supine heel slides 3x10, 5 sec holds 4: *Seated heel slides 3x10, 5 sec holds 5: *SLR 3x10 6: *legs elevated ankle pumps x10-15 min/day as needed 7: Heel propped on half foam roller, gentle STM with foam roller to L quad x5 min (used to promote knee extension ROM today) Skilled Intervention: Patient was educated in proper exercise technique and purpose for exercises. Skilled judgment was used in selection of appropriate interventions. Provided written instruction for home exercise program to facilitate proper performance and compliance. Correct performance of therapeutic exercises was facilitated with verbal, visual, and tactile cuing. Gait Trainin: Cued heel to toe ambulation with active knee extension with SPC today Skilled Intervention: Patient was provided supervision during pre-gait/gait training to prevent falls and insure safety. Facilitated proper gait cycle with the use of verbal and visual cues for correction of gait deviations identified in the objective section above. Billing * Evaluation Low Complexity: 1 Unit Therapeutic Exercise Treatment Minutes: 20 Gait Training Treatment Minutes: 5 Skilled Treatment Time Minutes (timed and untimed codes): 40 Total Session Time (minutes): 40 Session Start Time : 0900 Session Stop Time : 0940 Crow Elliott PT Program_ID:[id number] Access Code: [email or web address] URL: [email or web address] Date: 05-31-2023 Prepared By: Kristy Jo Program Notes Exercises - Supine Quadricep Sets - 1 x daily - 7 x weekly - 3 sets - 10 reps - Active Straight Leg Raise with Quad Set - 1 x daily - 7 x weekly - 3 sets - 10 reps - Seated Hamstring Stretch - 1 x daily - 7 x weekly - 3 sets - 10 reps - Supine Heel Slide - 1 x daily - 7 x weekly - 3 sets - 10 reps - Seated Heel Slide - 1 x daily - 7 x weekly - 3 sets - 10 reps - Ankle Pumps in Elevation - 1 x daily - 7 x weekly - 1 sets - 50 reps documented in this encounter [facility] 05-27-2023 History of Present illness Narrative CONSULT ORTHOPAEDIC: KNEE PRIMARY CARE PHYSICIAN: Sivakumar Matamoros PA-C REFERRING PROVIDER: No referring provider defined for this encounter. ASSESSMENT & PLAN Impression: Left Knee Severe Degenerative Osteoarthritis, Primary Diagnoses: Osteoarthritis left knee Based upon the evaluation today and after discussions with Doris Grace, Doris Grace has significant, worsening pain at the knee. This pain is increased with activity and weight bearing, and interferes with activities of daily living. These symptoms have continued despite a number of non-surgical measures, including a trial of oral pain medication and attempted physical therapy/ structured exercise program and/or use of an assistive device/ bracing (for at least 12 weeks unless the patient was unable to tolerate these measures as discussed above). At this point, the patient will not benefit from further PT due to the severity of their condition. The patient's physical examination is consistent with limitations in range of motion, pain with passive range of motion, crepitus, and effusion/ synovitis. These examination findings are corroborated by imaging findings of joint space narrowing, periarticular osteophyte formation, and subchondral sclerosis. The patient has been treated by the practice and all reasonable treatments have failed to control the disease, which causes significant pain and limits activities of daily living. The patient has failed conservative treatment and joint replacement surgery was discussed and agreed upon by both provider and patient. We will proceed with surgical management to improve function and relieve pain refractory to non-surgical measures. Left Primary Total Knee Arthroplasty as evidenced by six months of unsuccessful non-operative treatment as outlined in the HPI below and progressive symptoms. Progressive Symptoms Include: Pain impacting sleep or causing fatigue Pain impacting work Pain worsened by weight bearing Pain limiting ability to stay fit and healthy Unable to ambulate 2 blocks without significant pain and dysfunction . Surgery Details Date and Location: At [facility] on TBD. Implants: [employer]: Yes Predicted LOS: 1 day (Outpatient candidate) Informed consent obtained in the office today. The risks and benefits of surgery were discussed at length including but not limited to the risks of infection, bleeding, nerve or blood vessel injury, deep venous thrombosis, pulmonary embolism, arthrofibrosis, reflex sympathetic dystrophy, , paralysis, knee or patellar dislocation, extensor mechanism injury, bone fracture, component loosening or failure requiring re-operation or amputation. Informed consent was obtained and the patient was scheduled for surgery. We also discussed fixation strategies including cement and cementless fixation and advantages and disadvantages of each. We discussed the details of the surgery as well as rehabilitation. All questions were answered, and the patient wishes to proceed with surgery.. The patient has been ordered: Office Visit on 05/03/23 traMADol (ULTRAM) 50 mg tablet *Discontinued* No orders placed today. CONSULTS: Patient does not require consults for optimization at this time. Total Joint Arthroplasty: Risk Calculator Dorisazalea Grace has a 5.42% chance of NOT returning home at discharge for a Primary total Knee replacement. Doris's estimated Length of Stay is 1 day (Outpatient candidate). Doris's 30 day chance of readmission is 0.62%. Readmission Probability 0.62 % (within 30 days following surgery) Estimated LOS 1 day Discharge Disposition Probability D/C to Home 94.58 % D/C to SNF 5.42 % These calculations are based on the following factors: - 52 years of age - sex is not male - BMI of 35 kg/m2 - NarxCare score of 0 - 0 hospitalizations in the last 12 months - no history of heart disease - no history of diabetes - no history of COPD - no history of anemia - preoperative ambulation: impaired community distances - 3 step(s) to enter home - bed location is on the first floor - bath location is on the first floor - caregiver is consistent - home is not more than 150 miles away - PROMIS-10 Mental Health T score 41-49 - Marital status: Risk Factors for Total Knee Arthroplasty (TKA) Major Risk Factors Obesity Moderate Risk High: BMI > 40 Moderate: BMI 30-40 Normal: BMI < 30 Diabetes normal High: A1C > 8 Moderate: A1C 7-8 Normal: A1C < 7 Smoking normal High: Current smoker Normal: Non smoker Narcotics Use normal High:NarxCare >=300 Moderate: 100-299 Normal: 0-99 Depression Moderate Risk High: PHQ-9 >14 Moderate: PHQ-9 5-14 Normal: PHQ-9 < 5 Area Deprivation Index (DOUG) Moderate Risk High: DOUG Score > 75 Moderate: DOUG 50-75 Normal: DOUG < 50 Obesity: weight management recommended BMI Readings from Last 3 Encounters: 05/03/23 : 35.61 kg/m 02/08/23 : 35.64 kg/m 12/17/22 : 35.31 kg/m Area Deprivation Index (DOUG) DOUG Score 08/22/2021 08/27/2022 National Score 61 64 Patient Health Questionnaire (PHQ-9) PHQ-9 02/02/2022 02/16/2023 05/02/2023 PHQ-2 Score 5 3 2 PHQ-9 Score 16 10 - (0-4) minimal depression, (5-9) mild depression, (10-14) moderate depression, (15-19) moderately severe depression, (20-27) severe depression Bone Density Risk Screen Doris Grace is low risk for bone loss based on her age and having no previous diagnoses of osteopenia, osteoporosis, Paget's disease of bone, or cancer of bone. Other risk factors are listed below to determine if they pose a significant risk for bone loss, and if so, recommend ordering a bone densitometry and, upon receiving a result, as needed, order a consult to a bone health specialist (Rheumatology, Endocrinology, or Women's Health) for bone assessment. Risk Factors: Use of Proton Pump Inhibitors Prednisone or use of systemic steroids Additional Risk Factors ACTIVE PROBLEM LIST Allergic Rhinitis Due to Other Allergen Adjustment Disorder With Depressed Mood Temporomandibular Joint Sounds On Opening and/Or Closing The Jaw Irritable Bowel Syndrome Internal Hemorrhoids Without Mention of Complication Eczematous Dermatitis Other Psoriasis Lichenification and Lichen Simplex Chronicus H/O Total Hysterectomy With Removal of Both Tubes and Ovaries Myopia, Bilateral Tear of Medial Meniscus of Knee Joint Gastroesophageal Reflux Disease Without Esophagitis Mild Intermittent Asthma Without Complication Recurrent Major Depressive Disorder, in Partial Remission (Hcc) Arthritis of Left Knee Obesity, Class II, Bmi 35-39.9 Primary Osteoarthritis of Both Knees Anxiety S/P Total Knee Arthroplasty, Left SUBJECTIVE CHIEF COMPLAINT: Knee Pain HPI: Doris Grace is a 52 year old patient with the presenting complaint of Pre-Op Visit and Knee Replacement of the Left Knee. 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 The problem began limiting activities 3+ years ago. Doris reports a current pain level of 7 (Knee-Left). She describes the pain as Aching, Dull, Pressure, Sharp, Sore, Stabbing, Stiffness, Tightness. The pain is Intermittent . Interventions tried include Medication, Reposition, Relaxation. PROMIS Physical Function Score PROMIS CAT Physical Function 03/18/2022 02/16/2023 04/22/2023 T-Score 35 (moderate dysfunction) 35 (moderate dysfunction) 41 (mild dysfunction) Percentile 7 7 18* FUNCTIONAL STATUS: Climb a flight of stairs or walk up a hill (5.50 METs) PREVIOUS TREATMENTS: Past anti-inflammatory medications (not necessarily for this reason for visit): betamethasone acetate,sod phos, dexamethasone sodium phosphate, indomethacin, ketorolac tromethamine, meloxicam, methylprednisolone, oxaprozin, prednisone, triamcinolone acetonide Attempted Weight Loss Medical Treatments: OTC NSAIDS for 3 Months or Greater (Ibuprofen and Aleve), Steroid Injections Left Knee Physical Therapy: Shoe Wear, Braces, Orthotics, etc., Activities Modified, and PT Three Months or Greater 1-2 times per week REVIEW OF SYSTEMS: PAIN ASSESSMENT: See HPI. MUSCULOSKELETAL: See HPI. Malnutrition Screening Tool (MST) 05/10/2023 Lost Weight Recently Without Trying? If Yes, Amount of Weight Loss(lbs) 0:No Eating Poorly Because of a Decreased Appetite 0:No Weight Loss Score (Calculated) 0 Appetite Score (Calculated) 0 Total MST Score (Calculated) 0 PAST MEDICAL HISTORY Diagnosis Date Abdominal pain, epigastric Abdominal pain, right lower quadrant Adjustment disorder with depressed mood Allergic rhinitis due to other allergen Esophagitis, unspecified Exercise-induced asthma possible, no spirometry in past Internal hemorrhoids without mention of complication Irritable bowel syndrome PMH - PAST MEDICAL HISTORY OF acme Superficial injury of hip, thigh, leg, and ankle ACL/MCL PARTIALLY TORN Temporomandibular joint sounds on opening and/or closing the jaw PAST SURGICAL HISTORY Procedure Laterality Date ARTHROSCOPY KNEE DIAGNOSTIC W/WO SYNOVIAL BX SPX Left 03/2017 Arthroscopy, knee COLONOSCOPY FLX DX W/COLLJ SPEC WHEN PFRMD 11/23/2005 Normal COLONOSCOPY FLX DX W/COLLJ SPEC WHEN PFRMD 09/23/2020 EGD TRANSORAL BIOPSY SINGLE/MULTIPLE 12/19/2008 Gastritis ESOPHAGOGASTRODUODENOSCOPY TRANSORAL DIAGNOSTIC 09/23/2020 LAPS ABD PRTM&OMENTUM DX W/WO SPEC BR/WA SPX Laparoscopy for endometriosis LAPS ABD PRTM&OMENTUM DX W/WO SPEC BR/WA SPX Laparoscopy for endometriosis REM LESION FACE,EAR,EYEL <5MM 06/30/2006 EXCISION LESION NASAL BRIDGE REM LESION FACE,EAR,EYEL <5MM 06/30/2006 LEFT INNER CANTHUS TOTAL ABDOMINAL HYSTERECT W/WO RMVL TUBE OVARY 2003 Hysterectomy for endometriosis, GABRIEL and BSO FAMILY HISTORY Problem Relation Age of Onset Hypertension Mother Seizures Mother HISTORY OF Cancer Mother CERVICAL Diabetes Mother Pre-diabetic Obesity Mother other (Non-Hodgkin's disease) Father Hypertension Brother Hypertension Maternal Grandmother Diabetes Maternal Grandmother Coronary Artery Disease Maternal Grandmother BYPASS SURGERY Cataract Maternal Grandmother Glaucoma Maternal Grandmother Obesity Maternal Grandmother Macular Degen Maternal Grandfather other (MACULAR DEGENERATION) Maternal Grandfather Obesity Paternal Grandmother Cancer Paternal Grandfather 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 ibuprofen (MOTRIN) 600 mg tablet Take 600 mg by mouth every 6 hours. ondansetron orally disintegrating (ZOFRAN ODT) 4 mg disintegrating tablet Take 1 tablet by mouth every 8 hours as needed for nausea/vomiting. docusate sodium (COLACE) 100 mg capsule Take 1 capsule by mouth two times a day as needed for constipation. aspirin, enteric coated (ASPIRIN, ENTERIC COATED) 81 mg EC tablet Take 1 tablet by mouth two times a day. Patient should start on May 11, 2023. ascorbic acid, vitamin C, (VITAMIN C) 500 mg tablet Take 1 tablet by mouth two times a day with meals for 28 doses. Patient should start on May 11, 2023. acetaminophen (TYLENOL) 500 mg tablet Take 2 tablets by mouth every 8 hours as needed for pain. estradiol (ESTRACE) 1 mg tablet Take 1 tablet by mouth once daily. buPROPion SR (WELLBUTRIN SR) 150 mg 12 hr tablet Take 1 tablet by mouth twice daily. fexofenadine (TELLY) 180 mg tablet Take 1 tablet by mouth once daily. albuterol HFA (PROVENTIL HFA, VENTOLIN HFA) 90 mcg/actuation inhaler Inhale 2 Puffs as instructed every 4 hours as needed (for cough, wheezing, chest tightness or shortness of breath. Use with spacer. ). omeprazole (PRILOSEC) 20 mg capsule Take 1 capsule by mouth once daily. clobetasol (TEMOVATE) 0.05 % ointment Apply selectively to spots or lesions of eczematous and psoriasiform dermatitis of elbows and lower legs: once to twice per day for up to 2-4 weeks or less as needed until clear and then try to stop or taper off to a bland emollient cream such as CeraVe cream (or Cetaphil cream) as able. AVOID deep fold areas, face, eyes, and eyelids with the Clobetasol. cyclobenzaprine (FLEXERIL) 10 mg tablet Take 1 tablet by mouth three times daily as needed for Muscle Spasm. multivit-min/ferrous fumarate (MULTI VITAMIN ORAL) Take 1 tablet by mouth once daily. Patient should start on May 13, 2023. nystatin (MYCOSTATIN) powder Apply 1 application to affected area four times daily. (Patient taking differently: Apply 1 application to affected area four times daily. As needed) LORazepam (ATIVAN) 0.5 mg tab Take 1 tablet by mouth twice daily as needed. (Patient taking differently: Take 0.5 mg by mouth two times a day as needed (anxiety ).) fluticasone 50 mcg/actuation nasal spray Use 2 Sprays in each nostril once daily. Rinse mouth after use. Cholecalciferol, Vitamin D3, 25 mcg (1,000 unit) cap Take 1,000 Units by mouth once daily. OBJECTIVE PHYSICAL EXAM: There were no vitals taken for this visit. All other systems deferred. GENERAL: Appears healthy, well-nourished, no deformities. HABITUS: Obese GAIT: Antalgic to the left KNEE EXAM: Right: Alignment: Neutral Range of motion is 0 degrees in extension and 130 degrees of flexion. Extension La degrees Pain with ROM: No Effusion: None Tender to the palpation of None Pain with patellar compression: No Stability: Anterior/Posterior stable and Varus/Valgus stable Hip Exam: flexion to 100+ degrees, full extension, internal/external rotation adequate and no pain with log roll Neurovascular Status: Sensation Intact and Moves foot and ankle up & down Left: Alignment: Varus deformity, Partially Correctable Range of motion is 10 degrees in extension and 110 degrees of flexion. Extension La-20 degrees Pain with ROM: Yes Effusion: Mild Tender to the palpation of Medial joint line Pain with patellar compression: No Stability: Anterior/Posterior stable and Varus/Valgus stable Hip Exam: flexion to 100+ degrees, full extension, internal/external rotation adequate, and no pain with log roll Neurovascular Status: Sensation Intact, Moves foot and ankle up & down, Moves toes up and down, and 2+ dorsalis pedis DATA: Diagnostic tests reviewed for today's visit: Left knee X-Ray: Medial joint space noted to have severe degenerative changes, Bone on bone contact of the medial joint space(s), and medial translation of femur on tibia. The following conditions were addressed during the office visit today: Obesity - Weight management strategies were discussed including diet and exercise. We discussed the need for a CT scan as part of the preoperative planning protocol for [place] robotic total knee arthroplasty Evangelina Zambrano MD 04/13/2023 PATIENT NAME: Doris Grace documented in this encounter [facility] 05-26-2023 Miscellaneous Notes SITUATION: only patient present during today's visit. patient reports the following since the last homecare visit: medications/allergies--no changes, no fall. . Pt states that she is doing well and is ready to go back home and to transition to OP PT BACKGROUND: Diagnoses (reason for Home Care): LTKR Weight Bearing/Precaution Changes: no changes ASSESSMENT: Focus of visit: reassessment/discharge. Emphasized the need to focus on quad engagement with QS, SAQ< FAQ and wt bearing activites Physical therapy discharged: goals achieved. Functional performance at discharge - bed mobility independent, transfers independent, ambulation independent and stairs independent. Plan of care, goals, and discharge reviewed and agreed upon with patient and/or caregiver. RECOMMENDATION: Patient discharged from home health services. Instructions to include:begin outpatient therapy on 05/31 See intervention summary for intervention/education details. documented in this encounter [facility] 05-25-2023 Miscellaneous Notes SITUATION: only patient present during today's visit. patient reports the following since the last homecare visit: medications/allergies--no changes, no fall. patient reports told her she was on track with healing and recovery. . BACKGROUND: Diagnoses (reason for Home Care): LTKR Weight Bearing/Precaution Changes: no changes ASSESSMENT: Focus of visit patient at her home for todays PT visit. Worked on stairs to enter/exit home and tub /shower transfers Patient did well. Attempted to progress to haider standing exercises but patient unable to do without significant lean on counter. Instructed patient to continue w/ LLE standing and supine exercises at this time for HEP. Still unsteady w/ cane training due to limited weight shifting to LLE. To continue w/ww for all ambulation for safety and to decrease fall risk. AAROM 85 Plan of care, goals, and visit frequency reviewed and agreed upon with patient and/or caregiver. Current Discharge Plan: outpatient rehab Anticipate discharge by 05/26/23 RECOMMENDATION: Next visit to focus on PT to see for DC See intervention summary for intervention/education details. documented in this encounter [facility] 05-24-2023 History of Present illness Narrative Post-op Office Visit Doris Grace 52 year old May 24, 2023 1:27 PM Surgery Date: 05/10/2023 History: Doris Grace is now 2 weeks out from robotic assisted left TKA. Post-operative course has been without complication. No readmissions. The patient was discharged from [facility] to home with home health care on 05/12/2023. Subjective: Patient reports 4/10 pain. Overall is doing well. Using walker ambulatory aid. She is taking one oxycodone per day. Patients rates her condition as improving. Reports compliance with DVT ppx. Participating in home PT. Objective: Left knee: Ambulates with walker Incision well-approximated, no drainage, well-healing. Suture tails trimmed today. Knee ROM 5 - 85 degrees Distally DP/PT palpable Distally SILT S/S/SP/DP/T intact at baseline Distally DF/PF motor intact at baseline Negative catherine/calf tenderness Xrays: Well-positioned total knee replacement in appropriate alignment with no evidence of loosening Assessment and Plan: 52 year old female 2 weeks status post robotic assisted left total knee arthroplasty at normal post operative stage of recovery - continue ice, rest, and use of non-narcotic analgesia as needed - reviewed antibiotic prophylactic protocols - discussed home exercises and therapy - continue ASA DVT prophylaxis for 4 weeks total - WBAT on operative extremity - discussed driving requirement: 4 weeks post-op, off narcotic pain medication, adequate brake time - follow up in 4 weeks for repeat clinical evaluation with Dr. Zambrano Normal post-operative course discussed with patient. Patient reassured and supported. All questions answered. Kobe Templeton PA-C documented in this encounter [facility] 05-24-2023 History of Present illness Narrative Radiology Service Progress Note PATIENT NAME: Doris Grace DATE OF SERVICE: May 24, 2023 TIME: 1:07 PM PATIENT IDENTITY VERIFICATION COMPLETED USING TWO (2) IDENTIFIERS: Name and Date of confirmed by patient verbally. FALL SCREENING: Has the patient had 2 falls in the last year or 1 fall with injury or currently using an Ambulatory Assistive Device (Walker, Cane, Wheelchair, Crutches, etc.)? Yes, Patient High Risk for Falls What interventions were put in place to prevent falls during this visit? Instructed Patient to Remain Seated (Not on Exam Table) Until Exam and Increased Observations by Caregivers PATIENT GENDER DATA: Female. status: : No status: NO. PATIENT RELEVANT IMPLANT DATA REVIEWED: Not Applicable PATIENT PRESENTS WITH AN IMPLANTABLE OR ATTACHED SUPPORT SERVICES TECH: No RADIOLOGY DEPARTMENT: General X-ray: Exam(s) Completed: Lower Extremity X-Ray(s): Knee, AP / Lat / Merchant Left and Wt. Bearing PERIPHERAL IV DATA: Not applicable SIGNED BY: ONIEL Stallworth May 24, 2023 1:07 PM documented in this encounter [facility] 05-21-2023 Miscellaneous Notes SITUATION: mother present during today's visit. patient reports the following since the last homecare visit: medications/allergies--no changes, no fall. patient reports she had a really good day yesterday. More stiff today. BACKGROUND: Diagnoses (reason for Home Care): LTKR Weight Bearing/Precaution Changes: no changes ASSESSMENT: Focus of visit progression of exercises for HEP. gait training w/ cane, patient slightly unsteady at this time w. cane. Instructed patient to cont w/ww for safety and to ensure good heel to toe pattern. AAROM 0-90. Plan of care, goals, and visit frequency reviewed and agreed upon with patient and/or caregiver. Current Discharge Plan: outpatient rehab Anticipate discharge by 05/26/23 RECOMMENDATION: Next visit to focus on prep for DC. Patient maybe at her home next week so we can work on stair training See intervention summary for intervention/education details. documented in this encounter [facility] 05-20-2023 Miscellaneous Notes I called Doris, she has not had any more diarrhea. She has cut back on her pain meds too and states now she is taking 3-4 a day. I sent in a refill for 28 tabs. PDMP website reviewed and validated. Patient has been compliant and taking medication appropriately without evidence of suspicious activity. Will refill Rx. Medardo Lester PA-C Patient had a few bouts of diarrhea last night and today. Please advise. She's off the colace. She is taking benefiber. She's worried about c-dff. She also asked for a refill of pain medication. documented in this encounter [facility] 05-19-2023 Miscellaneous Notes SITUATION: mother and father present during today's visit. patient reports the following since the last homecare visit: medications/allergies--no changes, no fall. patient reports she is feeling like she is not making progress w/ pain, its still hurts alot. . BACKGROUND: Diagnoses (reason for Home Care): LTKR Weight Bearing/Precaution Changes: no changes ASSESSMENT: Focus of visit progression of ROM and strength exercises for HEP. Decreased stiffness reported after step stretch. Gait training w/ww w/ focus on increased step length to encourage knee flexions. scheduled OP PT AAROM 5-80 Plan of care, goals, and visit frequency reviewed and agreed upon with patient and/or caregiver. Current Discharge Plan: outpatient rehab Anticipate discharge by 05/28/23 RECOMMENDATION: Next visit to focus on add standing knee /hip flexion See intervention summary for intervention/education details. documented in this encounter [facility] 05-17-2023 Miscellaneous Notes Removed surgical bandage today. No concerns. Picture uploaded to chart. Can you please enter orders for OP PT so I can get that scheduled for her? Thanks documented in this encounter [facility] 05-17-2023 Miscellaneous Notes SITUATION: mother present during today's visit. patient reports the following since the last homecare visit: medications/allergies--no changes, no fall. patient reports she is doing ok. BACKGROUND: Diagnoses (reason for Home Care): LTKR Weight Bearing/Precaution Changes: no changes ASSESSMENT: Focus of visit bandage removal. no concerns. AAROM 5-70. gait training w/ww and verbal/visual cues for heel to toe pattern and increased step lengths. Plan of care, goals, and visit frequency reviewed and agreed upon with patient and/or caregiver. Current Discharge Plan: outpatient rehab Anticipate discharge by 05/27/23 RECOMMENDATION: Next visit to focus on add step stretch See intervention summary for intervention/education details. documented in this encounter [facility] 05-15-2023 Miscellaneous Notes SITUATION: parents present during today's visit. patient reports the following since the last homecare visit: medications/allergies--Ibuprofen 600 mg, every 6 hrs, no fall. patient reports compliance to HEP, left knee is feeling better today. BACKGROUND: Diagnoses (reason for Home Care): [facility] from 05/10/2023 to ROBOTIC ASSISTED TOTAL KNEE ARTHROPLASTY 05/10/2023 Weight bearing status: WBAT ASSESSMENT: 5 days post op. ROM 6-67 degrees. Focus of visit: HEP review, RW amb. Plan of care, goals, and visit frequency reviewed and agreed upon with patient and/or caregiver. Current Discharge Plan: outpatient rehab Anticipate discharge by 05/29/23 RECOMMENDATION: Next visit to focus on dressing removal See intervention summary for intervention/education details. documented in this encounter [facility] 05-14-2023 Miscellaneous Notes Medication review completed. No ineffective drug therapy, significant side effects, significant drug interactions, duplicate drug therapy, or noncompliance with drug therapy noted. documented in this encounter [facility] 05-13-2023 Miscellaneous Notes SITUATION: pts dad present during today's visit. patient reports i'm doing so much better. BACKGROUND: Diagnoses (reason for Home Care): [facility] from 05/10/2023 to ROBOTIC ASSISTED TOTAL KNEE ARTHROPLASTY 05/10/2023 ACTIVE PROBLEM LIST Allergic Rhinitis Due to Other Allergen Adjustment Disorder With Depressed Mood Temporomandibular Joint Sounds On Opening and/Or Closing The Jaw Irritable Bowel Syndrome Internal Hemorrhoids Without Mention of Complication Eczematous Dermatitis Other Psoriasis Lichenification and Lichen Simplex Chronicus H/O Total Hysterectomy With Removal of Both Tubes and Ovaries Myopia, Bilateral Tear of Medial Meniscus of Knee Joint Gastroesophageal Reflux Disease Without Esophagitis Mild Intermittent Asthma Without Complication Recurrent Major Depressive Disorder, in Partial Remission (Hcc) Arthritis of Left Knee Obesity, Class II, Bmi 35-39.9 Primary Osteoarthritis of Both Knees Anxiety SPECIFIC ORDERS DME: Specific Equipment: Cane, Grab Bars- Shower, Grab Bars- Toilet, Long Handled Sponge (built in shower seat) Weight bearing status: WBAT You may remove your dressing on POD #7-10 (7 to 10 days after surgery). ASSESSMENT: Patient evaluated by [facility] physical therapy. Reviewed and explained homecare services. Plan of care, goals, and visit frequency developed, reviewed, and agreed upon with patient and/or caregiver. Patient Goal: walk without pain Patient will benefit from continued physical therapy to address the following deficits: strength, balance, gait, endurance and L knee joint ROM. Current Discharge Plan: outpatient rehab. Anticipate discharge by 05/29/23. RECOMMENDATION: Next visit to focus on ther ex, gait, transfers, rom Agreeable to PT; declining none See intervention summary for intervention/education details. documented in this encounter [facility] 02-22-2023 History of Present illness Narrative CONSULT ORTHOPAEDIC: KNEE PRIMARY CARE PHYSICIAN: Sivakumar Matamoros PA-C REFERRING PROVIDER: No referring provider defined for this encounter. ASSESSMENT & PLAN Impression: Left Knee Severe Degenerative Osteoarthritis, Primary Diagnoses: (M17.12) Primary osteoarthritis of left knee (primary encounter diagnosis) Based upon the evaluation today and after discussions with Doris Grace, Doris Grace has significant, worsening pain at the knee. This pain is increased with activity and weight bearing, and interferes with activities of daily living. These symptoms have continued despite a number of non-surgical measures, including a trial of oral pain medication and attempted physical therapy/ structured exercise program and/or use of an assistive device/ bracing (for at least 12 weeks unless the patient was unable to tolerate these measures as discussed above). At this point, the patient will not benefit from further PT due to the severity of their condition. The patient's physical examination is consistent with limitations in range of motion, pain with passive range of motion, crepitus, and effusion/ synovitis. These examination findings are corroborated by imaging findings of joint space narrowing, periarticular osteophyte formation, and subchondral sclerosis. The patient has been treated by the practice and all reasonable treatments have failed to control the disease, which causes significant pain and limits activities of daily living. The patient has failed conservative treatment and joint replacement surgery was discussed and agreed upon by both provider and patient. We will proceed with surgical management to improve function and relieve pain refractory to non-surgical measures. Left Primary Total Knee Arthroplasty as evidenced by six months of unsuccessful non-operative treatment as outlined in the HPI below and progressive symptoms. Progressive Symptoms Include: Pain impacting sleep or causing fatigue Pain impacting work Pain worsened by weight bearing Pain limiting ability to stay fit and healthy Unable to ambulate 2 blocks without significant pain and dysfunction . Surgery Details Date and Location: At [place] [facility]. Implants: Alpine Robotic: Yes Predicted LOS: 1 day (Outpatient candidate) Informed consent obtained in the office today. The risks and benefits of surgery were discussed at length including but not limited to the risks of infection, bleeding, nerve or blood vessel injury, deep venous thrombosis, pulmonary embolism, arthrofibrosis, reflex sympathetic dystrophy, , paralysis, knee or patellar dislocation, extensor mechanism injury, bone fracture, component loosening or failure requiring re-operation or amputation. Informed consent was obtained and the patient was scheduled for surgery. We also discussed fixation strategies including cement and cementless fixation and advantages and disadvantages of each. We discussed the details of the surgery as well as rehabilitation. All questions were answered, and the patient wishes to proceed with surgery.. The patient has been ordered: No orders found for this visit on 02/22/23. No orders placed today. CONSULTS: Patient does not require consults for optimization at this time. Total Joint Arthroplasty: Risk Calculator Doris Dulce Grace has a 5.42% chance of NOT returning home at discharge for a Primary total Knee replacement. Doris's estimated Length of Stay is 1 day (Outpatient candidate). Doris's 30 day chance of readmission is 0.62%. Readmission Probability 0.62 % (within 30 days following surgery) Estimated LOS 1 day Discharge Disposition Probability D/C to Home 94.58 % D/C to SNF 5.42 % These calculations are based on the following factors: - 52 years of age - sex is not male - BMI of 35 kg/m2 - NarxCare score of 0 - 0 hospitalizations in the last 12 months - no history of heart disease - no history of diabetes - no history of COPD - no history of anemia - preoperative ambulation: impaired community distances - 3 step(s) to enter home - bed location is on the first floor - bath location is on the first floor - caregiver is consistent - home is not more than 150 miles away - PROMIS-10 Mental Health T score 41-49 - Marital status: Risk Factors for Total Knee Arthroplasty (TKA) Major Risk Factors Obesity Moderate Risk High: BMI > 40 Moderate: BMI 30-40 Normal: BMI < 30 Diabetes normal High: A1C > 8 Moderate: A1C 7-8 Normal: A1C < 7 Smoking normal High: Current smoker Normal: Non smoker Narcotics Use normal High:NarxCare >=300 Moderate: 100-299 Normal: 0-99 Depression Moderate Risk High: PHQ-9 >14 Moderate: PHQ-9 5-14 Normal: PHQ-9 < 5 Area Deprivation Index (DOUG) Moderate Risk High: DOUG Score > 75 Moderate: DOUG 50-75 Normal: DOUG < 50 Obesity: weight management recommended BMI Readings from Last 3 Encounters: 02/08/23 : 35.64 kg/m 12/17/22 : 35.31 kg/m 10/22/22 : 37.22 kg/m Area Deprivation Index (DOUG) DOUG Score 08/22/2021 08/27/2022 National Score 61 64 Patient Health Questionnaire (PHQ-9) PHQ-9 05/21/2016 02/02/2022 02/16/2023 PHQ-2 Score 0 5 3 PHQ-9 Score - 16 10 (0-4) minimal depression, (5-9) mild depression, (10-14) moderate depression, (15-19) moderately severe depression, (20-27) severe depression Bone Density Risk Screen Doris Grace is low risk for bone loss based on her age and having no previous diagnoses of osteopenia, osteoporosis, Paget's disease of bone, or cancer of bone. Other risk factors are listed below to determine if they pose a significant risk for bone loss, and if so, recommend ordering a bone densitometry and, upon receiving a result, as needed, order a consult to a bone health specialist (Rheumatology, Endocrinology, or Women's Health) for bone assessment. Risk Factors: Use of Proton Pump Inhibitors Prednisone or use of systemic steroids Additional Risk Factors Past Orthopaedic Surgery: Doris had knee surgery on 04/02/2017 with Aleks Palacios. Malnutrition: No Malnutrition Screening Tool (MST) score on file- please complete the MST screening tool (click here to open) and refresh the note. ACTIVE PROBLEM LIST Allergic Rhinitis Due to Other Allergen Adjustment Disorder With Depressed Mood Temporomandibular Joint Sounds On Opening and/Or Closing The Jaw Irritable Bowel Syndrome Internal Hemorrhoids Without Mention of Complication Eczematous Dermatitis Other Psoriasis Lichenification and Lichen Simplex Chronicus H/O Total Hysterectomy With Removal of Both Tubes and Ovaries Myopia, Bilateral Tear of Medial Meniscus of Knee Joint Gastroesophageal Reflux Disease Without Esophagitis Mild Intermittent Asthma Without Complication Recurrent Major Depressive Disorder, in Partial Remission (Hcc) Arthritis of Left Knee Obesity, Class II, Bmi 35-39.9 Primary Osteoarthritis of Both Knees SUBJECTIVE CHIEF COMPLAINT: Knee Pain HPI: Doris Grace is a 52 year old patient with the presenting complaint of Established Patient and Knee Pain of the Left Knee. 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 The problem began limiting activities 3+ years ago. Doris reports a current pain level of 8 (Knee-Left). She describes the pain as Aching, Cramping, Radiating, Dull, Shooting, Sharp, Spasm, Stabbing/Not Incision, Stiffness, Tightness, Tingling. The pain is Continuous . Interventions tried include Medication, Relaxation, Reposition, Distractions, Exercise, Massage, Music, Positioning (product development specialist brace-not helpful). FALL RISK: Doris is not currently at risk for falls. PROMIS Physical Function Score PROMIS CAT Physical Function 08/21/2021 03/18/2022 02/16/2023 T-Score 41 (mild dysfunction) 35 (moderate dysfunction) 35 (moderate dysfunction) Percentile 18* 7 7 FUNCTIONAL STATUS: Climb a flight of stairs or walk up a hill (5.50 METs) PREVIOUS TREATMENTS: Last knee-related PT visit: 05/19/2022 (Knee - Left) Most recent knee injection: Large Joint Arthro/Inj: R knee joint (injected on 12/04/2022 by Heena Birch) Last Knee Surgery: 04/02/2017 with Aleks Palacios Past anti-inflammatory medications (not necessarily for this reason for visit): betamethasone acetate,sod phos, indomethacin, meloxicam, methylprednisolone, oxaprozin, prednisone, triamcinolone acetonide Attempted Weight Loss Medical Treatments: OTC NSAIDS for 3 Months or Greater (Ibuprofen and Aleve), Steroid Injections Left Knee Physical Therapy: Shoe Wear, Braces, Orthotics, etc., Activities Modified, and PT Three Months or Greater 1-2 times per week REVIEW OF SYSTEMS: PAIN ASSESSMENT: See HPI. MUSCULOSKELETAL: See HPI. No flowsheet data found. PAST MEDICAL HISTORY Diagnosis Date Abdominal pain, epigastric Abdominal pain, right lower quadrant Adjustment disorder with depressed mood Allergic rhinitis due to other allergen Esophagitis, unspecified Exercise-induced asthma possible, no spirometry in past Internal hemorrhoids without mention of complication Irritable bowel syndrome PMH - PAST MEDICAL HISTORY OF acme Superficial injury of hip, thigh, leg, and ankle ACL/MCL PARTIALLY TORN Temporomandibular joint sounds on opening and/or closing the jaw PAST SURGICAL HISTORY Procedure Laterality Date ARTHROSCOPY KNEE DIAGNOSTIC W/WO SYNOVIAL BX SPX Left 03/2017 Arthroscopy, knee COLONOSCOPY FLX DX W/COLLJ SPEC WHEN PFRMD 11/23/2005 Normal COLONOSCOPY FLX DX W/COLLJ SPEC WHEN PFRMD 09/23/2020 EGD TRANSORAL BIOPSY SINGLE/MULTIPLE 12/19/2008 Gastritis ESOPHAGOGASTRODUODENOSCOPY TRANSORAL DIAGNOSTIC 09/23/2020 LAPS ABD PRTM&OMENTUM DX W/WO SPEC BR/WA SPX Laparoscopy for endometriosis LAPS ABD PRTM&OMENTUM DX W/WO SPEC BR/WA SPX Laparoscopy for endometriosis REM LESION FACE,EAR,EYEL <5MM 06/30/2006 EXCISION LESION NASAL BRIDGE REM LESION FACE,EAR,EYEL <5MM 06/30/2006 LEFT INNER CANTHUS TOTAL ABDOMINAL HYSTERECT W/WO RMVL TUBE OVARY 2004 Hysterectomy for endometriosis, GABRIEL and BSO FAMILY HISTORY Problem Relation Age of Onset Hypertension Mother Seizures Mother HISTORY OF Cancer Mother CERVICAL Diabetes Mother Pre-diabetic Obesity Mother other (Non-Hodgkin's disease) Father Hypertension Brother Hypertension Maternal Grandmother Diabetes Maternal Grandmother Coronary Artery Disease Maternal Grandmother BYPASS SURGERY Cataract Maternal Grandmother Glaucoma Maternal Grandmother Obesity Maternal Grandmother Macular Degen Maternal Grandfather other (MACULAR DEGENERATION) Maternal Grandfather Obesity Paternal Grandmother Cancer Paternal Grandfather LUNG, bore miner operator, non smoker Hyperlipidemia Son other (Bicuspid Aortic Valve) Son Social History Tobacco Use Smoking status: Never Smokeless tobacco: Never Vaping Use Vaping Use: Never used Substance Use Topics Alcohol use: Yes Comment: OCCASIONALLY Drug use: No ALLERGIES: Cat Hair Extract, Dog Hair, Dust, Feldene [Piroxicam], Grass Pollen, Horse Hair And Dander, Mold, Seldane [Other], and Trees MEDICATIONS: estradiol (ESTRACE) 1 mg tablet Take 1 and 1/2 tablets by mouth once daily. naltrexone (TREXAN) 50 mg tablet Take 1/2 tablet by mouth twice daily. buPROPion SR (WELLBUTRIN SR) 150 mg 12 hr tablet Take 1 tablet by mouth twice daily. fexofenadine (TELLY) 180 mg tablet Take 1 tablet by mouth once daily. albuterol HFA (PROVENTIL HFA, VENTOLIN HFA) 90 mcg/actuation inhaler Inhale 2 Puffs as instructed every 4 hours as needed (for cough, wheezing, chest tightness or shortness of breath. Use with spacer. ). omeprazole (PRILOSEC) 20 mg capsule Take 1 capsule by mouth once daily. clobetasol (TEMOVATE) 0.05 % ointment Apply selectively to spots or lesions of eczematous and psoriasiform dermatitis of elbows and lower legs: once to twice per day for up to 2-4 weeks or less as needed until clear and then try to stop or taper off to a bland emollient cream such as CeraVe cream (or Cetaphil cream) as able. AVOID deep fold areas, face, eyes, and eyelids with the Clobetasol. ondansetron (ZOFRAN) 4 mg tablet Take 4 mg by mouth every 8 hours as needed for nausea/vomiting. cyclobenzaprine (FLEXERIL) 10 mg tablet Take 1 tablet by mouth three times daily as needed for Muscle Spasm. promethazine (PHENERGAN) 25 mg tablet Take 1/2 - 1 tablet by mouth every 4 hours as needed for nausea multivit-min/ferrous fumarate (MULTI VITAMIN ORAL) Take by mouth once daily. nystatin (MYCOSTATIN) powder Apply 1 application to affected area four times daily. (Patient taking differently: Apply 1 application to affected area four times daily. As needed) acetaminophen (TYLENOL) 325 mg tablet Take 650 mg by mouth every 6 hours as needed. LORazepam (ATIVAN) 0.5 mg tab Take 1 tablet by mouth twice daily as needed. fluticasone 50 mcg/actuation nasal spray Use 2 Sprays in each nostril once daily. Rinse mouth after use. Cholecalciferol, Vitamin D3, 25 mcg (1,000 unit) cap Take 1,000 Units by mouth once daily. fluticasone-salmeterol (ADVAIR DISKUS) 250-50 mcg/dose inhaler Inhale 1 Puff as instructed twice daily. Rinse and gargle mouth after use with water. benzonatate (TESSALON PERLE) 100 mg capsule Take 2 capsules by mouth three times daily as needed. montelukast (SINGULAIR) 10 mg tablet Take 1 tablet by mouth daily at bedtime. OBJECTIVE PHYSICAL EXAM: There were no vitals taken for this visit. All other systems deferred. GENERAL: Appears healthy, well-nourished, no deformities. HABITUS: Obese GAIT: Antalgic to the left KNEE EXAM: Right: Alignment: Neutral Range of motion is 0 degrees in extension and 130 degrees of flexion. Extension La degrees Pain with ROM: No Effusion: None Tender to the palpation of None Pain with patellar compression: No Stability: Anterior/Posterior stable and Varus/Valgus stable Hip Exam: flexion to 100+ degrees, full extension, internal/external rotation adequate and no pain with log roll Neurovascular Status: Sensation Intact and Moves foot and ankle up & down Left: Alignment: Varus deformity, Partially Correctable Range of motion is 10 degrees in extension and 110 degrees of flexion. Extension La-20 degrees Pain with ROM: Yes Effusion: Mild Tender to the palpation of Medial joint line Pain with patellar compression: No Stability: Anterior/Posterior stable and Varus/Valgus stable Hip Exam: flexion to 100+ degrees, full extension, internal/external rotation adequate, and no pain with log roll Neurovascular Status: Sensation Intact, Moves foot and ankle up & down, Moves toes up and down, and 2+ dorsalis pedis DATA: She was last seen in orthopaedic clinic for her knee/leg on 05/15/2022 with Evangelina Zambrano. Most recent knee imaging was completed on 02/22/2023 (XR KNEE GENERAL 4V AP BOTH/PA BOTH/LAT/MERC LEFT) . Attached is imaging for the order.The last knee-related PT visit was completed on 05/19/2022 (Knee - Left). The most recent knee injection was Large Joint Arthro/Inj: R knee joint, injected on 12/04/2022 by eHena Birch. Doris had knee surgery on 04/02/2017 with Aleks Palacios. Diagnostic tests reviewed for today's visit: Left knee X-Ray: Medial joint space noted to have severe degenerative changes, Bone on bone contact of the medial joint space(s), and medial translation of femur on tibia. The following conditions were addressed during the office visit today: Obesity - Weight management strategies were discussed including diet and exercise. SIGNATURE: Medardo Lester PA-C PATIENT NAME: Doris Grace DATE: February 22, 2023 TIME: 2:58 PM documented in this encounter [facility] 02-22-2023 History of Present illness Narrative Radiology Service Progress Note PATIENT NAME: Doris Grace DATE OF SERVICE: February 22, 2023 TIME: 2:03 PM PATIENT IDENTITY VERIFICATION COMPLETED USING TWO (2) IDENTIFIERS: Name and Date of confirmed by patient verbally. FALL SCREENING: Has the patient had 2 falls in the last year or 1 fall with injury or currently using an Ambulatory Assistive Device (Walker, Cane, Wheelchair, Crutches, etc.)? No PATIENT GENDER DATA: Female. status: : No status: NO. PATIENT RELEVANT IMPLANT DATA REVIEWED: Not Applicable RADIOLOGY DEPARTMENT: General X-ray: Exam(s) Completed: Lower Extremity X-Ray(s): Knee, AP / Lat / Tunne / Merchant Left and Wt. Bearing PERIPHERAL IV DATA: Not applicable SIGNED BY: Aminah Longoria February 22, 2023 2:03 PM documented in this encounter [facility] 01-12-2023 Miscellaneous Notes Having a lot of knee pain with weather changes. Using ibuprofen 600-800mg twice a day- upsetting stomach, bruising. The following approved medication requests have been transmitted electronically. Requested Prescriptions Signed Prescriptions Disp Refills oxaprozin (DAYPRO) 600 mg tablet 60 tablet 5 Sig: Take 2 tablets by mouth once daily. Authorizing Provider: Sivakumar MATAMOROS PA-C documented in this encounter [facility] 12-17-2022 History of Present illness Narrative 1. Myopia, bilateral 2. Presbyopia 3. Regular astigmatism of both eyes Finalized spec rx Dispensed trials (Ultra right eye, Air Optix left eye) and will order new trials (one pair for each eye) for OTC dispense -follow-up as needed -patient to let me know which she prefers 4. Posterior subcapsular polar age-related cataract of both eyes Very mild- monitor Vernon Nicole, CHRIS December 17, 2022 2:33 PM documented in this encounter [facility] 12-17-2022 History of Present illness Narrative Transmissions Systems Operator offered: Patient declines. Documentation from previous visit of 10/22/2022 was copied and pasted, documentation has been reviewed and edited as necessary for today's visit. Patient Summary: Doris is 51 a year old Female who presents for follow-up evaluation of obesity/weight management to treat and prevent related co-morbidities. In our previous visits we have discussed lifestyle intervention including a nutrition recommendations and physical activity optimization. Her last office visit was 2 months ago. Assessement/plan from last visit: Naltrexone 12.5 - 25 mg added to bupropion - going well. No cravings and thinking of food less. Notices that not always feels hungry at lunch. Paroxetine decreased to 10 mg and bupropion has improved her mood. Stopped supplements due to vasovagal response nausea, feeling hot, nausea, diarrhea that last 3-4 hours. . Episodes started night following second shingles vaccine in July 2022 and after starting supplements of cinnamon, turmeric and ACV and now occurring approximately once a month. Mother has IBS Knee pain - about the same, worse with rain. Right knee cortisone injection. at home - tried it again and had an episode of severe stomach pain with sweating followed by diarrhea. Not interested in due to heart palpitations. Interval History Minimal snacking between meals Tracking weight every 3 days and weighs daily B 0730- 2 egg bites with meat and cheese. Has started eating protein cake with 20 g protein and 5 carb or adding 9 gm 0 carb shake to coffee and eating it with egg bites S - none L - leftovers, salad with protein take-out, 2 string cheese/beef stick S - none or 1 oz almonds D -7pm - protein and LC vegetables, following ketogenic recipes, small Coke Zero S - none or protein bar or sugar free popsicle if hungry but does not eat after 1930 pm. Fluids - no calorie drinks, 64 oz water Her Cheats - DQ ice cream once a month in the evening with family - mini-blizzard twice a month. Occasional alcohol. Exercise: increased [employer], - 2 times/week weight bearing Stress: stable Sleep: stable and feels is sleeping deeper with naltrexone. Has 2 dogs and still needs to get up with them. Continues melatonin. Feels rested. Weight loss since last vist:10 lbs for total of 22 lbs Date: Wt: 12/17/2022 196 lb 10/22/2022 206 lb 09/24/2022 210 lb BMI 37.80 Naltrexone added 08/27/2022 213 lb (96.6 kg) Bupropion Initial weight: 07/30/22 : 218 lb (98.9 kg) Weight Circumference: 46.75 in 5% weight loss = 207 lbs, 10% weight loss = 196 lbs Estimated Creatinine Clearance: 87.6 mL/min (based on SCr of 0.81 mg/dL). PAST MEDICAL HISTORY Diagnosis Date Abdominal pain, epigastric Abdominal pain, right lower quadrant Adjustment disorder with depressed mood Allergic rhinitis due to other allergen Esophagitis, unspecified Exercise-induced asthma possible, no spirometry in past Internal hemorrhoids without mention of complication Irritable bowel syndrome PMH - PAST MEDICAL HISTORY OF acme Superficial injury of hip, thigh, leg, and ankle ACL/MCL PARTIALLY TORN Temporomandibular joint sounds on opening and/or closing the jaw Current Outpatient Medications Medication Sig Dispense Refill naltrexone (TREXAN) 50 mg tablet Take 1/2 tablet by mouth twice daily. 90 tablet 3 buPROPion SR (WELLBUTRIN SR) 150 mg 12 hr tablet Take 1 tablet by mouth twice daily. 180 tablet 3 fexofenadine (TELLY) 180 mg tablet Take 1 tablet by mouth once daily. 90 tablet 3 PARoxetine (PAXIL) 20 mg tablet Take 1 tablet by mouth once daily. 90 tablet 3 fluticasone-salmeterol (ADVAIR DISKUS) 250-50 mcg/dose inhaler Inhale 1 Puff as instructed twice daily. Rinse and gargle mouth after use with water. 1 Each 2 CINNAMON Take by mouth twice daily. Capsule chrm/vineg/bit-orang peel/gr t (APPLE CIDER VINEGAR PLUS ORAL) Take by mouth once daily. TURMERIC ORAL Take by mouth twice daily. benzonatate (TESSALON PERLE) 100 mg capsule Take 2 capsules by mouth three times daily as needed. 30 capsule 1 montelukast (SINGULAIR) 10 mg tablet Take 1 tablet by mouth daily at bedtime. 30 tablet 1 PARoxetine (PAXIL) 10 mg tablet Take 1 tablet by mouth once daily. (Patient taking differently: Take 20 mg by mouth once daily.) 90 tablet 3 albuterol HFA (PROVENTIL HFA, VENTOLIN HFA) 90 mcg/actuation inhaler Inhale 2 Puffs as instructed every 4 hours as needed (for cough, wheezing, chest tightness or shortness of breath. Use with spacer. ). 18 g 3 omeprazole (PRILOSEC) 20 mg capsule Take 1 capsule by mouth once daily. 90 capsule 3 clobetasol (TEMOVATE) 0.05 % ointment Apply selectively to spots or lesions of eczematous and psoriasiform dermatitis of elbows and lower legs: once to twice per day for up to 2-4 weeks or less as needed until clear and then try to stop or taper off to a bland emollient cream such as CeraVe cream (or Cetaphil cream) as able. AVOID deep fold areas, face, eyes, and eyelids with the Clobetasol. 60 g 2 ondansetron (ZOFRAN) 4 mg tablet Take 4 mg by mouth every 8 hours as needed for nausea/vomiting. cyclobenzaprine (FLEXERIL) 10 mg tablet Take 1 tablet by mouth three times daily as needed for Muscle Spasm. 30 tablet 5 promethazine (PHENERGAN) 25 mg tablet Take 1/2 - 1 tablet by mouth every 4 hours as needed for nausea 45 tablet 1 multivit-min/ferrous fumarate (MULTI VITAMIN ORAL) Take by mouth once daily. nystatin (MYCOSTATIN) powder Apply 1 application to affected area four times daily. (Patient taking differently: Apply 1 application to affected area four times daily. As needed) 15 g 0 diphenhydramine HCl (BENADRYL ORAL) Take by mouth as directed. (Patient not taking: Reported on 08/27/2022) acetaminophen (TYLENOL) 325 mg tablet Take 650 mg by mouth every 6 hours as needed. LORazepam (ATIVAN) 0.5 mg tab Take 1 tablet by mouth twice daily as needed. 45 tablet 0 fluticasone 50 mcg/actuation nasal spray Use 2 Sprays in each nostril once daily. Rinse mouth after use. 3 Bottle 3 Cholecalciferol, Vitamin D3, 25 mcg (1,000 unit) cap Take 1,000 Units by mouth once daily. Current Facility-Administered Medications Medication Dose Route Frequency Provider Last Rate Last Admin triamcinolone acetonide 40 mg injection (KeNALog 40) 40 mg INTRA-ARTICULAR ONCE (AMB - Up to 30 Days) Heena Birch APRN.ASSOCIATE MERCHANDISE PLANNER There were no vitals taken for this visit. ASSESSMENT/PLAN: 1. Recurrent major depressive disorder, in partial remission (HCC) - ICD9: 296.35, ICD10: F33.41 (primary diagnosis) - Continue paroxetine at effective dose of 10 mg - NALTREXONE 50 MG TABLET - BUPROPION HCL SR 150 MG TABLET,12 HR SUSTAINED-RELEASE 2. Gastroesophageal reflux disease without esophagitis - ICD9: 530.81, ICD10: K21.9 - Discussed lifestyle modifications including losing weight 3. Arthritis of left knee - ICD9: 716.96, ICD10: M17.12 -Continue weight loss 4. Class 2 severe obesity with serious comorbidity and body mass index (BMI) of 39.0 to 39.9 in adult, unspecified obesity type (HCC) - ICD9: 278.01, V85.39, ICD10: E66.01, Z68.39 - NALTREXONE 50 MG TABLET - BUPROPION HCL SR 150 MG TABLET,12 HR SUSTAINED-RELEASE -Increase exercise as the knee pain allows - Eat primarily whole foods. Limit carbs, especially processed carbs. - Do not drink your calories - 30 grams of protein for breakfast decreases your hunger during the day by up to 40 % Premier Protein or generic 30 gm protein 1 gm sugar Follow up in 4 months Ana Laura Jordan APRN.ARAM I spent a total of 38 minutes on the date of the service which included preparing to see the patient, [id number] patient care, completing clinical documentation, obtaining and/or reviewing separately obtained history, performing a medically appropriate examination, and counseling and educating the patient/family/caregiver. documented in this encounter [facility] 12-04-2022 History of Present illness Narrative Associated Order(s): Large Joint Arthro/Inj: R knee joint Post-Procedure Diagnose(s): Chronic pain of both knees; Primary osteoarthritis of both knees Options for relief were discussed with patient and verbal consent was given for steroid joint injection. Joint Injection Procedure: I injected the Right knee with 40mg of kenalog suspended in 2.0 cc's of plain 1% lidocaine using a lateral approach. Pt tolerated well and a bandaid was placed. No complications. Heena Birch APRN.CNP Large Joint Arthro/Inj: R knee joint Informed Consent Consent Obtained: Verbal Jackson Protocol A moment to CARE was completed. SIGN IN Personnel directly involved with the procedure wore the appropriate PPE. Special Equipment: N/A Patient/Surrogate Stated/Verified: Patient name, Date of , Relevant allergies and Intended procedure TIME OUT Intended patient and procedure match the source document(s). Consent documented and matches the intended procedure. Relevant labs, photos, and/or imaging studies have been reviewed. Correct side/site marked and visible. Medications required for procedure verified. No fire risk assessment and interventions applicable. No implant(s) inserted. 12/04/2022 11:54 AM The procedure site was prepped in the usual sterile fashion. Site: R knee joint Medications: 40 mg triamcinolone acetonide 40 mg/mL Anesthetics: 2 mL lidocaine (PF) 10 mg/mL (1 %) Outcome: Tolerated well, no immediate complications Post-injection instructions were reviewed with the patient and the patient voiced understanding of these instructions. SIGN OUT All instruments, equipment, possible retained foreign bodies accounted for. ASSESSMENT/PLAN: 1. Chronic pain of both knees - ICD9: 719.46, 338.29, ICD10: M25.561, M25.562, G89.29 (primary diagnosis) Discussed options, reviewed most recent xrays. Injection given in right knee, tolerated well. - LARGE JOINT INJECTION/ARTHROCENTESIS - LIDOCAINE (PF) 10 MG/ML (1 %) INJECTION SOLUTION - TRIAMCINOLONE ACETONIDE 40 MG/ML SUSPENSION FOR INJECTION 2. Primary osteoarthritis of both knees - ICD9: 715.16, ICD10: M17.0 - LARGE JOINT INJECTION/ARTHROCENTESIS - LIDOCAINE (PF) 10 MG/ML (1 %) INJECTION SOLUTION - TRIAMCINOLONE ACETONIDE 40 MG/ML SUSPENSION FOR INJECTION Heena Birch APRN.ASSOCIATE MERCHANDISE PLANNER documented in this encounter [facility] 10-22-2022 Instructions Ana Laura Jordan APRN.ASSOCIATE MERCHANDISE PLANNER - 10/22/2022 11:58 AM EDT A Short Walk After Meals Is All It Takes to Lower Blood Sugar Researchers studying older adults with pre-diabetes found that 15 minutes of [id number] exercise after every meal curbed risky blood sugar spikes all day. Seniors are more prone to developing diabetes, but a little exercise could make a big difference. A study published today in Diabetes Care found that three short walks each day after meals were as effective at reducing blood sugar over 24 hours as a single 45-minute walk at the same moderate pace. Even better, taking an evening constitutional was found to be much more effective at lowering blood sugar following supper. The evening meal, often the largest of the day, can significantly raise 24-hour glucose levels. The innovative exercise science study was conducted at the Clinical Exercise Physiology Laboratory at the [facility] ([facility]) using whole room calorimeters. Agnes Fierro, Ph.D., chair of the [facility] Department of Exercise Science, led the study. These findings are good news for people in their 70s and 80s who may feel more capable of engaging in intermittent physical activity on a daily basis, Sri said in a press release. Putting Humans in a Box to Measure Their Energy Use The whole room calorimeter (WRM), which looks like a very small hotel room, is a controlled-air environment for human study that allows scientists to calculate a person s energy expenditure by testing samples of air. The balance of oxygen consumed and carbon dioxide produced varies according to the activity level of the person in the room. The WRM also measures the body s use of different food fuels, such as carbohydrates, proteins, and fats. The 10 study participants spent three 48-hour periods in the small calorimeter rooms. Each room was equipped with a bed, toilet, sink, treadmill, television, and computer, leaving little room to move around. Participants ate standardized meals, and their blood sugar levels were monitored continuously using blood tests. The first day in the WRM served as a control period, with no exercise. On the second day, participants either walked at a moderate pace on the treadmill for 15 minutes after each meal, or for 45 minutes in either the late morning or before supper. The researchers observed that the evening post-meal walk was the most effective in lowering blood sugar levels for a full 24 hours. The typical exaggerated rise in blood sugar after supper--which often lasts well into the night and neonatologist--was curbed significantly as soon as the participants started to walk on the treadmill, the study authors said. How Age Affects Insulin Resistance An estimated 79 million Americans have pre-diabetes, according to the National Diabetes Education Program run by the National Institutes of Health. But many people have no idea they are at risk. According to Sri, older people may be particularly susceptible to poor blood sugar control after meals because inactive muscles contribute to insulin resistance. The problem is compounded by slow or low insulin secretion by the pancreas, which often occurs as the body ages. Post-meal high blood sugar is a nix risk factor in the progression from impaired glucose tolerance (pre-diabetes) to type 2 diabetes and cardiovascular disease, Sri explained. Other studies have suggested that weight loss and exercise can prevent type 2 diabetes. The authors say theirs is the first study to examine short bouts of physical activity timed around the risky period following meals--a time when blood sugar can rise rapidly and potentially cause damage to internal organs and blood vessels. The muscle contractions connected with short walks were immediately effective in blunting the potentially damaging elevations in post-meal blood sugar commonly observed in older people, Sri said. If the findings of this small study hold up to further testing, it could lead to an inexpensive prevention strategy for pre-diabetes, which can develop over time into type 2 diabetes. Back in the day, it was de rigueur to take a morning, noon, and evening walk. The time has come to get up from the table, tie on those walking shoes, and take a little stroll around the block. https://www.[employer]/health-news /sivdh-uyqxzpa-oejhq-tskex-jn-dvnotoc- tfrrr-wadko-xmjpez-503114 How alcohol affects your weight loss 1. Alcohol is often empty calories Alcoholic drinks are often referred to as empty calories. This means that they provide your body with calories but contain very little nutrients. There are almost 155 calories in one 12-ounce can of beer, and 125 calories in a 5-ounce glass of red wine. By comparison, a recommended afternoon snack should have between 150 and 200 calories. A night out with several drinks can lead to consuming a few hundred extra calories. Drinks that have mixers, such as fruit juice or soda, contain even more calories. 2. Alcohol is used as a primary source of fuel There are also other elements that can cause weight gain outside of calorie content. When alcohol is consumed, it s burned first as a fuel source before your body uses anything else. This includes glucose from carbohydrates or lipids from fats. When your body is using alcohol as a primary source of energy, the excess glucose and lipids end up, unfortunately for us, as adipose tissue, or fat. 3. Alcohol can affect your organs The primary role of your liver is to act as the filter for any foreign substances that enter your body, such as drugs and alcohol. The liver also plays a role in the metabolism of fats, carbohydrates, and proteins. Excess alcohol consumption can lead to what is known as alcoholic fatty liver. This condition can damage your liver, affecting the way your body metabolizes and stores carbohydrates and fats. Changes in the way your body stores energy from food can make it very difficult to lose weight. 4. Alcohol can contribute to excess belly fat The beer gut isn t just a myth. Foods high in simple sugars, such as those found in candy, soda, and even beer, are also high in calories. Extra calories end up stored as fat in the body. Consuming foods and drinks high in sugar can quickly lead to weight gain. We can t choose where all that extra weight ends up. But the body tends to accumulate fat in the abdominal area. 5. Alcohol affects judgment calls especially with food Even the most -hard diet fan will have a hard time fighting the urge to dig in when intoxicated. Alcohol lowers inhibitions and can lead to poor decision-making in the heat of the moment -- especially when it comes to food choices. However, the effects of alcohol surpass even social drinking etiquette. A recent animal studyTrusted Source found that mice given ethanol over a period of three days demonstrated a significant increase in food intake. This study suggests that alcohol can actually trigger hunger signals in the brain, leading to an increased urge to eat more food. 6. Alcohol and sex hormones It s long been known that alcohol intake can affect levels of hormones in the body, especially testosteroneTrusted Source. Testosterone is a sex hormone that plays a role in many metabolic processes, including muscle formation and fat burning capabilities. One study found that low testosterone levels may predict the prevalence of metabolic syndrome in men. Metabolic syndrome is characterized by: high cholesterol high blood pressure high blood sugar levels high body mass index Plus, lower testosterone levels may affect quality of sleep, especially in older men. 7. Alcohol can negatively affect your sleep A nightcap before bed may sound like a ticket to a good night s rest but you may want to reconsider. ResearchTrusted Source suggests that alcohol can lead to increased periods of wakefulness during sleep cycles. Sleep deprivation, whether from lack of sleep or impaired sleep, can lead to an imbalance in the hormones related to hunger, satiety, and energy storage. 8. Alcohol affects digestion and nutrient uptake Your social anxiety isn t the only thing that alcohol inhibits. Intake of alcoholic beverages can also inhibit proper digestive function. Alcohol can cause stress on the stomach and the intestines. This leads to decreasedTrusted Source digestive secretions and movement of food through the tract. Digestive secretions are an essential element of healthy digestion. They break down food into the basic macro- and micronutrients that are absorbed and used by the body. Alcohol intake of all levels can lead to impaired digestion and absorption of these nutrients. This can greatly affect the metabolism of organs that play a role in weight management. Best alcoholic drinks for weight loss This may all sound as if alcohol is ruining your chances of that beach body. But fear not -- watching your weight doesn t necessarily mean having to cut alcohol entirely out of your diet. Rather than reaching for drinks high in sugar or calories, enjoy some of these 100-calorie options instead: 1. Vodka Calories: 100 calories in 1.5 ounces of distilled 80-proof vodka Alternative cocktail: Choose low-calories mixers such as club soda and avoid overly sugary juices. 2. Whiskey Calories: 100 calories in 1.5 ounces of 86-proof whiskey Alternative cocktail: Ditch the cola and take your whiskey on the rocks for a low-calorie alternative. 3. Gin Calories: 115 calories in 1.5 ounces of 90-proof gin Alternative cocktail: Aim for something simple, such as a martini -- and don t skip the olives, they contain beneficial antioxidants such as vitamin E. 4. Tequila Calories: 100 calories in 1.5 ounces of tequila Alternative cocktail: The best part about tequila is that the customary tequila shot is just salt, tequila, and port heiden. 5. Dragan Calories: 100 calories in 1.5 ounces of dragan Alternative cocktail: This drink is best served as an after-dinner digestif and a good dragan should be enjoyed slowly to savor the subtle fruity sweetness. The bottom line While cutting alcohol completely out of your diet isn t necessarily the only way to lose weight, there are many improvements that can be made in your health journey by simply cutting back on the booze. You can enjoy a healthier body, improved sleep, better digestion, and fewer of those excess empty calories. And if you do plan to drink, enjoy a vodka or whiskey on the rocks -- and skip the soda! [email or web address] documented in this encounter [facility] 10-22-2022 History of Present illness Narrative Transmissions Systems Operator offered: Patient declines. Documentation from previous visit of 09/24/2022 was copied and pasted, documentation has been reviewed and edited as necessary for today's visit. Patient Summary: Doris is 51 a year old Female who presents for follow-up evaluation of obesity/weight management to treat and prevent related co-morbidities. In our previous visits we have discussed lifestyle intervention including a nutrition recommendations and physical activity optimization. Her last office visit was 1 month ago. Assessement/plan from last visit: Naltrexone 25 mg added to bupropion - going well. No cravings and thinking of food less. Notices that not always feels hungry at lunch. Paroxetine and bupropion has improved her mood. at home - tried it again and had an episode of severe stomach pain with sweating followed by diarrhea. Not interested in due to heart palpitations. Interval History Minimal snacking between meals Tracking weight every 3 days and weighs daily B 0730- 2 egg bites with meat and cheese. Has started eating protein cake with 20 g protein and 5 carb or adding 9 gm 0 carb shake to coffee and eating it with egg bites S - none L - leftovers, 2 string cheese/beef stick or salad with Power crunch bar S - none or 1 oz almonds D -7pm - protein and LC vegetables, following ketogenic recipes, small Coke Zero S - none or protein bar or sugar free popsicle if hungry but does not eat after 1930 pm. Fluids - no calorie drinks, 64 oz water Her Cheats - DQ ice cream once a month in the evening with family, DD Occasional alcohol. Refresher full sugar once a week on the way to work Exercise: increased [employer], - 2 times/week weight bearing Stress: stable Sleep: stable and feels is sleeping deeper with naltrexone. Has 2 dogs and still needs to get up with them. Continues melatonin. Feels rested. Weight loss since last vist:4 lbs for total of 12 lbs Date: Wt: 10/22/2022 206 lb 09/24/2022 210 lb BMI 37.80 08/27/2022 213 lb (96.6 kg) Bupropion Initial weight: 07/30/22 : 218 lb (98.9 kg) Weight Circumference: 46.75 in 5% weight loss = 207 lbs, 10% weight loss = 196 lbs Estimated Creatinine Clearance: 88.4 mL/min (based on SCr of 0.81 mg/dL). PAST MEDICAL HISTORY Diagnosis Date Abdominal pain, epigastric Abdominal pain, right lower quadrant Adjustment disorder with depressed mood Allergic rhinitis due to other allergen Esophagitis, unspecified Exercise-induced asthma possible, no spirometry in past Internal hemorrhoids without mention of complication Irritable bowel syndrome PMH - PAST MEDICAL HISTORY OF acme Superficial injury of hip, thigh, leg, and ankle ACL/MCL PARTIALLY TORN Temporomandibular joint sounds on opening and/or closing the jaw Current Outpatient Medications Medication Sig Dispense Refill buPROPion SR (WELLBUTRIN SR) 150 mg 12 hr tablet Take 1 tablet by mouth twice daily. 180 tablet 3 naltrexone (TREXAN) 50 mg tablet Take 0.5 tablets by mouth twice daily. 90 tablet 0 fexofenadine (TELLY) 180 mg tablet Take 1 tablet by mouth once daily. 90 tablet 3 PARoxetine (PAXIL) 20 mg tablet Take 1 tablet by mouth once daily. 90 tablet 3 fluticasone-salmeterol (ADVAIR DISKUS) 250-50 mcg/dose inhaler Inhale 1 Puff as instructed twice daily. Rinse and gargle mouth after use with water. 1 Each 2 CINNAMON Take by mouth twice daily. Capsule chrm/vineg/bit-orang peel/gr t (APPLE CIDER VINEGAR PLUS ORAL) Take by mouth once daily. TURMERIC ORAL Take by mouth twice daily. benzonatate (TESSALON PERLE) 100 mg capsule Take 2 capsules by mouth three times daily as needed. 30 capsule 1 montelukast (SINGULAIR) 10 mg tablet Take 1 tablet by mouth daily at bedtime. 30 tablet 1 PARoxetine (PAXIL) 10 mg tablet Take 1 tablet by mouth once daily. (Patient taking differently: Take 20 mg by mouth once daily.) 90 tablet 3 albuterol HFA (PROVENTIL HFA, VENTOLIN HFA) 90 mcg/actuation inhaler Inhale 2 Puffs as instructed every 4 hours as needed (for cough, wheezing, chest tightness or shortness of breath. Use with spacer. ). 18 g 3 omeprazole (PRILOSEC) 20 mg capsule Take 1 capsule by mouth once daily. 90 capsule 3 clobetasol (TEMOVATE) 0.05 % ointment Apply selectively to spots or lesions of eczematous and psoriasiform dermatitis of elbows and lower legs: once to twice per day for up to 2-4 weeks or less as needed until clear and then try to stop or taper off to a bland emollient cream such as CeraVe cream (or Cetaphil cream) as able. AVOID deep fold areas, face, eyes, and eyelids with the Clobetasol. 60 g 2 ondansetron (ZOFRAN) 4 mg tablet Take 4 mg by mouth every 8 hours as needed for nausea/vomiting. cyclobenzaprine (FLEXERIL) 10 mg tablet Take 1 tablet by mouth three times daily as needed for Muscle Spasm. 30 tablet 5 promethazine (PHENERGAN) 25 mg tablet Take 1/2 - 1 tablet by mouth every 4 hours as needed for nausea 45 tablet 1 multivit-min/ferrous fumarate (MULTI VITAMIN ORAL) Take by mouth once daily. nystatin (MYCOSTATIN) powder Apply 1 application to affected area four times daily. (Patient taking differently: Apply 1 application to affected area four times daily. As needed) 15 g 0 diphenhydramine HCl (BENADRYL ORAL) Take by mouth as directed. (Patient not taking: Reported on 08/27/2022) acetaminophen (TYLENOL) 325 mg tablet Take 650 mg by mouth every 6 hours as needed. LORazepam (ATIVAN) 0.5 mg tab Take 1 tablet by mouth twice daily as needed. 45 tablet 0 fluticasone 50 mcg/actuation nasal spray Use 2 Sprays in each nostril once daily. Rinse mouth after use. 3 Bottle 3 Cholecalciferol, Vitamin D3, 25 mcg (1,000 unit) cap Take 1,000 Units by mouth once daily. No current facility-administered medications for this visit. BP 124/78 Pulse 88 Wt 206 lb 12.8 oz (93.8 kg) SpO2 96% BMI 37.22 kg/m ASSESSMENT/PLAN: 1. Recurrent major depressive disorder, in partial remission (HCC) - ICD9: 296.35, ICD10: F33.41 (primary diagnosis) - Continue paroxetine. - NALTREXONE 50 MG TABLET - BUPROPION HCL SR 150 MG TABLET,12 HR SUSTAINED-RELEASE 2. Gastroesophageal reflux disease without esophagitis - ICD9: 530.81, ICD10: K21.9 - Discussed lifestyle modifications including losing weight 3. Arthritis of left knee - ICD9: 716.96, ICD10: M17.12 -Continue weight loss 4. Class 2 severe obesity with serious comorbidity and body mass index (BMI) of 39.0 to 39.9 in adult, unspecified obesity type (HCC) - ICD9: 278.01, V85.39, ICD10: E66.01, Z68.39 - NALTREXONE 50 MG TABLET - BUPROPION HCL SR 150 MG TABLET,12 HR SUSTAINED-RELEASE - Discussed and given information regarding how alcohol affects weight loss discussed -High carb processed snacks especially in the evening and how to make this healthier. -Encouraged increased activity and exercise. Discussed how taking a 15-minute walk after meals and Pursell and given written information. - Eat primarily whole foods. Limit carbs, especially processed carbs. - Do not drink your calories - 30 grams of protein for breakfast decreases your hunger during the day by up to 40 % Premier Protein or generic 30 gm protein 1 gm sugar Follow up in 8 weeks per pt's preference. Ana Laura Jordan APRN.ARAM Medical Decision Making: Problems: Moderate: 1+ chronic illnesses with change Risk: Moderate: Drug management and Moderate risk from testing/treatment Medical Decision Making Level: 4 - Moderate documented in this encounter [facility] 10-08-2022 Miscellaneous Notes Rx sent to pharmacy. Christal Braga LPN Pt called stating that insurance will not longer allow her to fill below listed medication locally, will need sent to mail order pharmacy. Call only if problems. Christal Braga LPN documented in this encounter [facility] 09-09-2022 Miscellaneous Notes Patient has been identified by name and date of : Yes Requested Prescriptions Pending Prescriptions Disp Refills PARoxetine (PAXIL) 20 mg tablet 90 tablet 3 Sig: Take 1 tablet by mouth once daily. RX INSTRUCTIONS: Patient aware RX will be sent to pharmacy. No need to notify patient. Yesenia iVdes LPN documented in this encounter [facility] 09-09-2022 Miscellaneous Notes Patient has been identified by name and date of : Yes Requested Prescriptions Pending Prescriptions Disp Refills fexofenadine (TELLY) 180 mg tablet 90 tablet 3 Sig: Take 1 tablet by mouth once daily. RX INSTRUCTIONS: Patient aware RX will be sent to pharmacy. No need to notify patient. Yesenia Vides LPN documented in this encounter [facility] 09-08-2022 Miscellaneous Notes Patient spoke with provider, concerns of increased knee pain from OA and going on vacation. Previously tolerated a prednisone burst without issues. Will send for x5 days. documented in this encounter [facility] 08-25-2022 History of Present illness Narrative Radiology Service Progress Note PATIENT NAME: Doris Grace DATE OF SERVICE: August 25, 2022 TIME: 12:02 PM PATIENT IDENTITY VERIFICATION COMPLETED USING TWO (2) IDENTIFIERS: Name and Date of confirmed by patient verbally. FALL SCREENING: Has the patient had 2 falls in the last year or 1 fall with injury or currently using an Ambulatory Assistive Device (Walker, Cane, Wheelchair, Crutches, etc.)? No PATIENT GENDER DATA: Female. status: : No status: NO. PATIENT RELEVANT IMPLANT DATA REVIEWED: Not Applicable RADIOLOGY DEPARTMENT: Ultrasound PERIPHERAL IV DATA: Not applicable SIGNED BY: Nydia Werner RDMS T August 25, 2022 12:02 PM documented in this encounter [facility] 08-25-2022 History of Present illness Narrative Radiology Service Progress Note PATIENT NAME: Doris Grace DATE OF SERVICE: August 25, 2022 TIME: 10:44 AM PATIENT IDENTITY VERIFICATION COMPLETED USING TWO (2) IDENTIFIERS: Name and Date of confirmed by patient verbally. FALL SCREENING: Has the patient had 2 falls in the last year or 1 fall with injury or currently using an Ambulatory Assistive Device (Walker, Cane, Wheelchair, Crutches, etc.)? No PATIENT GENDER DATA: Female. status: : No status: NO. PATIENT RELEVANT IMPLANT DATA REVIEWED: Not Applicable RADIOLOGY DEPARTMENT: Mammography PERIPHERAL IV DATA: Not applicable SIGNED BY: RT Jp(R) August 25, 2022 10:44 AM documented in this encounter [facility] 07-30-2022 Instructions Ana Laura Jordan APRN.ASSOCIATE MERCHANDISE PLANNER - 07/30/2022 11:43 AM EDT Images from the original note were not included. Weight management: You have taken the initiative to become a healthier version of yourself and to decrease the risks that come with the diagnosis of obesity or being overweight. We are happy to help you along this journey but know this is a lifetime commitment to yourself. Losing just 3-10% of your body weight can decrease your risks of many other serious diseases like diabetes, heart disease, osteoarthritis, hypertension, cancer and so many others. During this time you will have triumphs, setbacks, and plateaus- your body will fight against you but we are here to give you the tools and resources to continue to reach your goals. We recommend during this time that you track your weight daily or at least five times per week as well as tracking your nutrition. You may track your activity but do not use hitting your fitness goals as a reward system as this can derail your success. We recommend weekly physical activity of 150-200min/week- although physical exercise can help with maintaining weight loss it adds only a little benefit for termite exterminator helper weight loss success. However, exercise can have many other benefits including improving mental health and cardiovascular health. Do not feel overwhelmed - we will discuss this more at your visits. Our time will be limited with each visit but we will try to touch on factors that are important to you and to your overall goals. We will try to set a goal at the end of each visit and then decide on what we want to accomplish with your upcoming visits. On your After Visit Summary (AVS), we will provide you with information that may be useful during this journey so please remember to read the information given. Check your AVS a few days after your appointment because we may have added more information specifically for you. Remember that if you are placed on medications, they are tools that can help you succeed but you must put in the work. Your nutrition will be the main factor. There are medications that work well for some and not for others- so it may take time to find the right combination for your body's needs. Please remember that factors such as other health co-morbidities one might have, as well as insurance coverage, will play a factor in determining which medications you can take. Most of the newer medications that are all the craze, Injectables, may not be covered or will only be covered if you fail months of oral medications- so please be patient with the process. It would be beneficial for you to determine what your insurance covers as far as Anti-Obesity Medications (AOMs), Nutritional counseling, behavioral intervention, and weight loss surgery. Please call your health insurance prior to your first appointment and write down coverage for each of those therapies. Most importantly, remember that ultimately our goal is to help you get to a healthier weight which will decrease your overall health risks. We will work together as a team and try to reach your personalized goals as well. We appreciate that you have entrusted us with your health and know that we are committed to this process with you. Sincerely, Laura Robles MD, LIZABETHOG & Ana Laura Jordan CNP Bread - Breezy or Aldi sprouted grain bread Eat primarily whole foods. Limit carbs, especially processed carbs. Do not drink your calories 30 grams of protein for breakfast decreases your hunger during the day by up to 40 % Premier Protein or generic 30 gm protein 1 gm sugar Walk for 15 minutes immediately a meal. 15 gram carb fruit options Berries have the lowest sugar content 1/2 cup diced honeydew melon - 8 carbs One half medium grapefruit - 10.5 carbs 1 medium orange -15.5 carbs 1 medium peach -14.5 carbs 1/2 cup fresh cranberries - 6.5 carbs 1 medium plum -7.5 carbs 1/2 cup raspberries -7.5 carbs 1 medium Clarice -9 carbs 1/2 cup fresh pineapple -11 carbs 1 medium nectarine - 15 carbs 1/2 cup blueberries - 11 carbs - may actually help you lose weight 1 medium kiwi without skin - 11 carbs 1/2 cup fresh cherries -11 carbs 1 medium tangerine -12 carbs 1/2 cup sliced bettie -14 carbs 1/2 medium banana 1/2 c grapes 5 gram carb vegetable options 1 cup raw OR cup cooked: Asparagus Cabbage Spinach Peppers Green beans Carrots Tomato [place] Simon sprouts Cauliflower Lettuce Snap peas Broccoli Eggplant Zucchini Turnips Spaghetti squash 15 gram carb vegetable options cup cooked green peas cup cooked corn or hominy corn on the cob, large (5 oz) cup cooked sweet potato, plain cup cooked potato, plain 1 small potato or sweet potato 1 cup winter squash (pumpkin, acorn, butternut) 1 cup marinara or pasta sauce - check label cup tomato juice cup tomato puree Beans, Seeds, Nuts cup cooked beans (kidney, etienne, red, green, etc.) cup cooked lentils cup baked beans 4 tablespoons nut butter 30 High Protein Snacks 1. Jerky 2. [place] mix without or minimal dried fruit 3. [place] roll-ups 4. Frisian yogurt 5. Veggies and yogurt dip 6. Tuna 7. Hard-boiled eggs 8. Peanut butter celery sticks 9. No-bake energy bites 10. Cheese slices/ Cheese Stick 11. Handful of almonds 12. Roasted chickpeas 13. Hummus and veggies 14. Cottage Cheese 15. Celery/fruit with peanut butter 16. Beef sticks (Grass-fed, natural ingredients) 17. Protein bars 18. Canned [place] 19. Mike pudding 20. Homemade granola - rolled oats, nuts, and a little sweetener like honey- 1/4 cup serving 21. Pumpkin seeds 22. Nut butter 23. Protein shakes 24. Edamame 25. Avocado and chicken salad 26. Fruit and nut bars - natural ingredients without added sugar. 27. Lentil salad 28. Overnight oatmeal 29. Egg muffins 30. Leftover protein or lunch meat A Closer Look at Medical Weight-loss Medications: Phentermine (Adipex , Lomaira and Suprenza ) The average weight-loss results from prescription weight-loss drugs are 5-10% of your starting weight. It is important to know that everyone responds differently to medications. The average result will be seen by most people who take the medication, while others will see a larger amount of weight-loss or none at all. How does it work? Phentermine is a weight-loss medication that is available by prescription only and has been FDA-approved since 1958. It works on chemicals in your brain to decrease your appetite and includes a mild stimulant to give you energy. Phentermine is a pill taken once a day in the morning and is intended for short-term use. Common side effects are dry mouth and sleepiness. Weight-loss: The average weight-loss is 4-5% of your initial body weight after one year. For a person weighing 200 pounds, that means about a 10- pound weight-loss. Concerns: The stimulant may increase your blood pressure and heart rate, so you must be monitored by an HCP who is experienced in prescribing this medication. Patients with some heart conditions (such as uncontrolled blood pressure), glaucoma, stroke, or overactive thyroid should avoid this medication. Orlistat (Xenical and Dagoberto ) How does it work? Orlistat is available teqc-zvy-hocujmp as dagoberto and in a higher-dose by prescription called Xenical . Both are FDA-approved for weight-loss and work by decreasing the amount of fat your body absorbs. It is taken three times per day before meals that contain dietary fat. Orlistat allows your body to only absorb 2/3 of the calories from the fat consumed in your meal. The other 1/3 is carried away indigestion and becomes part of your stool. More information can be found at [employer]. Weight-loss: The average weight-loss is 5% of your initial body weight. For a person weighing 200 pounds, that means about a 10- pound weight-loss. Concerns: This medication does not work well for people already eating a low-fat diet as their calories from fat are already low. People taking Orlistat should take a multivitamin as there is a chance for vitamin deficiency. Side effects are limited but can include cramps, gas, stool leakage, oily spotting, and gas with discharge. These symptoms will improve with a lower-fat diet. Naltrexone HCI/Bupropion HCI (Contrave ) $99/month How does it work? Contrave was approved by the FDA in 2013 and is a combination of two medications approved for other medical conditions. Naltrexone is a medication previously aproved for the treatment of narcotic and alcohol dependency. Bupropion is approved as an anti-depressant and a medication to help people stop smoking. When used together, they work to decrease appetite and control eating. Weight-loss: Among individuals who took Contrave for one year, 65% lost at least 5% of their initial body weight (10-pound weight loss for a person who weighs 200 pounds) and 39% lost at least 10% of their body weight (20 pound weight-loss for a person who weighs 200 pounds). Concerns: The most common side effects are nausea, constipation, headache, dry mouth, vomiting, and dizziness. This medication also had a small occurrence (6%) of increased blood pressure and heart rate. Phentermine-Topiramate ER (Qsymia ) $99-$150/month How does it work? This combination of medication was approved by the FDA in 2011. Phentermine is a weight-loss drug that received FDA approval in 1959. Topiramate is traditionally used for migraine prevention and in seizure prophylaxis. Together, they work to decrease your appetite and increase a feeling of fullness after eating. Weight-loss: Weight loss can vary by dosage. At the lower dose, 62% of individuals on Qsymia lost 5% of their starting body weight. (10-pound weight loss for a person who weighs 200 pounds). Among people taking the higher dose, 48% lost 10% of their starting weight (20-pound weight loss for a person who weighs 200 pounds). Concerns: The most common side effects are dry mouth, constipation, and exaq-vif-vkowtyg feelings in the face, arms, hands, and feet. Insomnia may occur if taken later in the day. Women who are or who are considering becoming should not take Qsymia as it has been known to cause defects. Liraglutide Injection (Saxenda ) How does it work? Liraglutide is an injectable medication that was approved by the FDA in 2014. It works by increasing your body s natural production of insulin, which regulates blood sugar levels. It also decreases the production of a hormone that opposes insulin, slows down the emptying of the stomach, and helps regulate fullness. It is also used to treat type 2 diabetes. Weight-loss: In a study of individuals who were on Saxenda for one year, 73% lost at least 5% of their starting body weight (10-pound weight loss for a person who weighs 200 pounds), and 41% lost at least 10% of their initial body weight (20-pound weight loss for a person who weighs 200 pounds). Concerns: The most common side effects are nausea, vomiting, diarrhea, and constipation. Semaglutide Injection (Wegovy ) How does it work? Wegovy is an injectable prescription medicine used for adults with obesity or overweight (excess weight) who also have weight-related medical problems to help them lose weight and keep the weight off.Medically speaking, Wegovy is a xbosfgoh-wmyt-bhzogdw-1 (GLP-1) receptor agonist that is engineered in the laboratory. What this means is that Wegovy mimics the naturally occurring GLP-1 hormone that is released by our intestines into our bloodstream within minutes after we ingest food. Weight-loss: The effectiveness and safety of Wegovy have been demonstrated in the Semaglutide Treatment Effect for People with Obesity (STEP) program. The four STEP studies involved 4,500 individuals from around the world that were either affected by obesity or classified as overweight with co-existing medical conditions resulting from their excess weight. The average weight-loss was 15 to 17% of the individual s starting weight. For an individual who weighs 230 lbs.,this translates into a 35 to 39 lb. weight-loss. In the STEP 1 study, one-third of individuals were able to lose at least 20% of their weight. Concerns: The most common side effects are nausea, diarrhea, vomiting and constipation. https://www.obesityaction.org/educatio n-support/treatment/eqixxku-lwjuua-twv agement/ Metformin How does it work? Metformin helps to lower blood glucose levels by reducing the amount of glucose produced and released by the liver, and by increasing insulin sensitivity. It has now been proven to prevent or delay diabetes. Metformin and Type 2 Diabetes Prevention Diabetes Spectrum (diabetesjournals.org) Weight loss: Large cohort studies have shown weight loss benefits associated with metformin therapy. Emerging evidence suggests that metformin-associated weight loss is due to modulation of hypothalamic appetite-regulatory centers, alteration in the gut microbiome, and reversal of consequences of aging. Metformin is also being explored in the management of obesity s sequelae such as hepatic steatosis, obstructive sleep apnea and osteoarthritis. Effectiveness of metformin on weight loss in non-diabetic individuals with obesity - PubMed (nih.gov) Is metformin a wonder drug? - [facility] Concerns: Most common side effects of this medication include nausea, changes in bowel habits, abdominal discomfort, and flatulence. Taking the medication with food will help. Side effects also typically get better with time. Rarely, a severe side effect called lactic acidosis can occur. If you experience malaise, muscle aches, difficulty breathing, or severe abdominal pain, please seek immediate medical attention. Plentity (around $100 per month) How does it work? Plentity is an FDA-cleared, prescription-only aid for weight management. It is made from naturally derived building blocks--cellulose and citric acid. Taken with water 20 minutes before lunch and dinner, Plenity helps you feel full, eat less, and lose weight. Weight loss: In a clinical study,* nearly 6 out of 10 people who took Plenity lost at least 5% of their body weight. Their average weight loss was 10% (about 22 pounds). individuals on Plenity lost on average 6% vs individuals on placebo, who lost on average 4%. How Plenity Works The Plenity weight loss pill is made from cellulose and citric acid. The patient ingests 3 tablets and 16 oz of water before lunch and dinner. Plenity tablets swell 100 times their original size, taking more space in the stomach and gives the user a feeling of fullness (satiety). After that, it moves through the intestines and passes with bowel movements. Plenity s Side Effects Since Plenity isn t absorbed by the body, side effects are less common than other weight loss medications. Possible side effects of Plenity include:abdominal pain, bloating, constipation, cramping, diarrhea, gas, irregular bowel movements. Buproprion (Wellbutrin) How does it work? It stimulates noradrenaline, dopamine, and (less-so) serotonin receptors. This gives you more energy, suppresses your appetite, and enhances your mood. Stress increases cortisol and ghrelin which stimulate your appetite. Dopamine and noradrenaline suppress your appetite. Does Bupriopion cause weight loss? It can. Bupropion (the generic form of Wellbutrin) was initially prescribed as an antidepressant. It is the only antidepressant associated with weight loss (Tarik-Opal, 2019). Healthcare providers noticed that mostly pleasant side effect, and today bupropion is sometimes prescribed as part of a medication for weight loss (naltrexone/bupropion, brand name Contrave), as well as a stop-smoking aid (brand name Zyban). A 2016 study that analyzed the long-term weight loss effect of various antidepressant medications found that non-smokers who took bupropion lost 7.1 pounds over two years. (This effect was not seen in smokers). Users of the other antidepressants in the study gained weight (Arterburn, 2016). Bupropion seems to be effective for weight-loss maintenance as well. A 2012 study found that obese adults who took bupropion SR (standard release) in 300mg or 400mg doses lost 7.2% and 10% of their body weight, respectively, over 24 weeks and maintained that weight loss at 48 weeks (Jorge, 2012). And a 2019 review of 27 studies on antidepressants and weight gain found that antidepressant use increases body weight by an average of 5%--except bupropion, which is associated with weight loss (Tarik-Pedrero, 2019). Concerns: Side effects can include headache, weight loss, dry mouth, trouble sleeping (insomnia), nausea, dizziness, constipation, fast heartbeat, increased blood pressure, and sore throat. These will often improve over the first week or two as you continue to take the medication. https://ro.co/health-guide/wellbutrin- qbm-ekdzqs-enam/ https://www.[employer].com/blog// dpektn-pvko-trenx documented in this encounter [facility] 07-30-2022 History of Present illness Narrative Images from the original note were not included. INITIAL WEIGHT MANAGEMENT CONSULT: Patient Summary: Doris Grace is a 51 year old female with obesity who presents for an initial evaluation of overweight/obesity and is interested in combination of behavioral and pharmacological Motivation for seeking treatment for the disease of overweight/obesity : Does want old and overweight - has 3 older people counting on her as they age. 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 She states her weight gain is related to the following factors, including weight retention , exposure to a weight gain promoting medication, Depo Provera. , reduced physical activity, and consumption of unhealthy foods. WEIGHT GRAPH: Medications:none Weight Promoting Medications: SSRI Diet: B -0600 PBJ on toast. Has been trying IF - eating egg bites at 0730 S - coconut biscuit or protein bar or nuts L - 1200 - salad at work or leftovers at home or cheese and crackers with candy bar S - nuts or chips D - 6 pm Chicken - oven or fried, baked potato/sweet potato or fries, vegetables. Dessert - cookies or ice cream S - if hungry, keto bar or popcorn Fluids: water 6/8 glasses/day, one small Coke Zero or O jen tea. Coffee with SF coconut creamer about 1/4 cup Preferred foods: chicken, green beans, asparagus, sugar Satiation: sometimes Satiety - most of the time Diet History: Past weight loss attempts - commercial diets and self-directed. Keto, Low Carbohydrate diet, MyFitnessPal, and Weight watchers Exercise: Regular exercise: no, knee pain. Looking into [facility] ?Sleep: Duration: 6 hours. VIK No; CPAP NO + Snoring ??Stress: Stress average:, Cause:Personal and work Obesity Related Comorbidities: Prior Weight Loss Surgery:No PAST MEDICAL HISTORY Diagnosis Date Abdominal pain, epigastric Abdominal pain, right lower quadrant Adjustment disorder with depressed mood Allergic rhinitis due to other allergen Esophagitis, unspecified Exercise-induced asthma possible, no spirometry in past Internal hemorrhoids without mention of complication Irritable bowel syndrome PMH - PAST MEDICAL HISTORY OF acme Superficial injury of hip, thigh, leg, and ankle ACL/MCL PARTIALLY TORN Temporomandibular joint sounds on opening and/or closing the jaw PAST SURGICAL HISTORY Procedure Laterality Date ARTHROSCOPY KNEE DIAGNOSTIC W/WO SYNOVIAL BX SPX Left 03/2017 Arthroscopy, knee COLONOSCOPY FLX DX W/COLLJ SPEC WHEN PFRMD 11/23/2005 Normal COLONOSCOPY FLX DX W/COLLJ SPEC WHEN PFRMD 09/23/2020 EGD TRANSORAL BIOPSY SINGLE/MULTIPLE 12/19/2008 Gastritis ESOPHAGOGASTRODUODENOSCOPY TRANSORAL DIAGNOSTIC 09/23/2020 LAPS ABD PRTM&OMENTUM DX W/WO SPEC BR/WA SPX Laparoscopy for endometriosis LAPS ABD PRTM&OMENTUM DX W/WO SPEC BR/WA SPX Laparoscopy for endometriosis REM LESION FACE,EAR,EYEL <5MM 06/30/2006 EXCISION LESION NASAL BRIDGE REM LESION FACE,EAR,EYEL <5MM 06/30/2006 LEFT INNER CANTHUS TOTAL ABDOMINAL HYSTERECT W/WO RMVL TUBE OVARY 2003 Hysterectomy for endometriosis, GABRIEL and BSO FAMILY HISTORY Problem Relation Age of Onset Hypertension Mother Seizures Mother HISTORY OF Cancer Mother CERVICAL Diabetes Mother Pre-diabetic Hypertension Maternal Grandmother Diabetes Maternal Grandmother Coronary Artery Disease Maternal Grandmother BYPASS SURGERY Cataract Maternal Grandmother Glaucoma Maternal Grandmother Macular Degen Maternal Grandfather other (MACULAR DEGENERATION) Maternal Grandfather Cancer Paternal Grandfather LUNG, bore miner operator, non smoker other (Non-Hodgkin's disease) Father Hyperlipidemia Son other (Bicuspid Aortic Valve) Son Hypertension Brother Social History Tobacco Use Smoking status: Never Smokeless tobacco: Never Vaping Use Vaping Use: Never used Substance Use Topics Alcohol use: Yes Comment: OCCASIONALLY Drug use: No Obesity ROS/ FHx GEN: Fatigue:no CV: h/o palpitations/cardiac arrhythmia, - had 2 episodes in past 20 years - negative cardiology evaluation with normal echo 2021 Chest pain: no HTN: no PULM: Asthma:yes GI: GERD:yes ; Gallstones:no ; Fatty liver disease:no Pancreatitis: no MSK: Joint Pain:yes : Nephrolithiasis: no Symptoms of PCOS: no NEURO: Migraines/GOMEZ: yes ; H/o seizures: no Glaucoma:no; Cataracts yes - early Symptoms of or History of pseudotumor cerebri:no Family or personal History of MEN2 or Medullary thyroid cancer: no PE BP 116/72 Pulse 84 Ht 5' 2.5 (1.588 m) Wt 218 lb (98.9 kg) BMI 39.24 kg/m Weight Circumference: 46.75 in GENERAL: Female in NAD. Gluteo-femoral adiposity. SKIN: acanthosis nigricans no, Skin tags: no Hirsutism: no HEENT: PERRL, No supraclavicular adiposity. No dorsal adiposity. RESPIRATORY: CBTA CARDIAC: RRR ABDOMEN: Protuberant ; EXTREMITIES: peripheral edema: no Results: reviewed with the patient No visits with results within 3 Month(s) from this visit. Latest known visit with results is: Appointment on 01/31/2022 Component Date Value Ref Range Status WBC 01/31/2022 6.68 3.70 - 11.00 k/uL Final RBC 01/31/2022 4.74 3.90 - 5.20 m/uL Final Hemoglobin 01/31/2022 13.4 11.5 - 15.5 g/dL Final Hematocrit 01/31/2022 40.7 36.0 - 46.0 % Final MCV 01/31/2022 85.9 80.0 - 100.0 fL Final MCH 01/31/2022 28.3 26.0 - 34.0 pg Final MCHC 01/31/2022 32.9 30.5 - 36.0 g/dL Final RDW-CV 01/31/2022 13.2 11.5 - 15.0 % Final Platelet Count 01/31/2022 230 150 - 400 k/uL Final MPV 01/31/2022 10.8 9.0 - 12.7 fL Final Absolute nRBC 01/31/2022 <0.01 <0.01 k/uL Final Protein, Total 01/31/2022 6.7 6.3 - 8.0 g/dL Final Albumin 01/31/2022 4.1 3.9 - 4.9 g/dL Final Calcium, Total 01/31/2022 9.6 8.5 - 10.2 mg/dL Final Bilirubin, Total 01/31/2022 0.2 0.2 - 1.3 mg/dL Final Alkaline Phosphatase 01/31/2022 119 34 - 123 U/L Final AST 01/31/2022 24 13 - 35 U/L Final ALT 01/31/2022 24 7 - 38 U/L Final Glucose 01/31/2022 76 74 - 99 mg/dL Final BUN 01/31/2022 20 7 - 21 mg/dL Final Creatinine 01/31/2022 0.80 0.58 - 0.96 mg/dL Final Sodium 01/31/2022 138 136 - 144 mmol/L Final Potassium 01/31/2022 4.4 3.7 - 5.1 mmol/L Final Chloride 01/31/2022 105 97 - 105 mmol/L Final CO2 01/31/2022 23 22 - 30 mmol/L Final Anion Gap 01/31/2022 10 9 - 18 mmol/L Final Estimated Glomerular Filtration Ra* 01/31/2022 89 >=60 mL/min/1.73m Final Impression: Doris Grace is a 51 year old Female with Class II obesity (Body mass index is 39.24 kg/m .) who has adult onset obesity with gradual weight gain despite several weight loss attempts. The causes of her obesity are multifactorial, biological, psychological and social and environmental. Specific factors include weight retention , exposure to a weight gain promoting medication, Depo Provera. , reduced physical activity, and consumption of unhealthy foods. She has no significant weight-related medical comorbidities which increase her cardiovascular mortality risk. There are no additional metabolic obesity complications. Other medical conditions as above. Regarding her lifestyle, as above, she has several behavioral contributors; her physical activity is minimal. Overall, it is clear that her quality of life is moderately compromised by her weight. It is likely a combination of weight loss therapies will be needed. She appears motivated today. Plan: -- Based on the severity and resistance of the obesity/overweight with co-morbidities, I believe a combination of behavioral and pharmacological intervention is the best and most appropriate mcfp therapeutic option. -- We discussed several strategies to track food intake and increase mindfulness around eating. She was counseled on the following: Eating primarily whole foods. Limit carbs, especially processed carbs. Do not drink your calories 30 grams of protein for breakfast decreases your hunger during the day by up to 40 % Premier Protein or generic 30 gm protein 1 gm sugar Walk for 15 minutes immediately a meal. - Recommend low-carb diet with 30 g of protein 3 times a day and 30 g of carbs at lunch and dinner only. Given tracking log. - Given 15 gram carb whole food suggestion list - Given information on AOM medications. -- Encouraged the patient to improve her physical activity. Although cardiovascular exercise is most beneficial for weight loss initially, we discussed healthy muscle from a combination of resistance training and cardiovascular exercise is the best mcfp plan. An overall goal of 150-200 minutes per week of exercise has been effective in weight loss and maintenance. -- follow-up visit for management of above interventions -- Reviewed that monitoring weight daily and food intake can have a positive impact on overall weight loss and maintenance of weight loss. Activity tracking can be used to stay on target for exercise however should not be used to reward oneself - Last Wt 07/30/22 : 218 lb (98.9 kg) 5% weight loss = 207 lbs, 10% weight loss = 196 lbs She understands that there can be limitations of pharmacotherapy due to contraindications, side effects and cost. Patient was told to contact her insurance company to see what AOMs and supervised behavioral medical appointments are currently covered. Patient understands she will have more success when following a healthy lifestyle. We reviewed continued use of online tracking of daily weights, food journal and if desired physical activity. I spent a total of 69 minutes on the date of the service which included preparing to see the patient, [id number] patient care, completing clinical documentation, obtaining and/or reviewing separately obtained history, performing a medically appropriate examination, counseling and educating the patient/family/caregiver, and ordering medications, tests, or procedures. Follow-up 4 weeks. Ana Laura Jordan APRN.ARAM documented in this encounter [facility] 07-20-2022 Miscellaneous Notes Pt made aware and will schedule. Kayla Martínez Ma Please advise mammo inconclusive Please schedule: Telephone on 07/18/22 STEFFI DIAGNOSTIC LEFT US BREAST LTD LEFT Tony Patterson PA-C documented in this encounter [facility] 07-16-2022 History of Present illness Narrative Radiology Service Progress Note PATIENT NAME: Doris Grace DATE OF SERVICE: July 16, 2022 TIME: 1:57 PM PATIENT IDENTITY VERIFICATION COMPLETED USING TWO (2) IDENTIFIERS: Name and Date of confirmed by patient verbally. FALL SCREENING: Has the patient had 2 falls in the last year or 1 fall with injury or currently using an Ambulatory Assistive Device (Walker, Cane, Wheelchair, Crutches, etc.)? No PATIENT GENDER DATA: Female. status: : No status: NO. PATIENT RELEVANT IMPLANT DATA REVIEWED: Not Applicable RADIOLOGY DEPARTMENT: Mammography PERIPHERAL IV DATA: Not applicable SIGNED BY: Anne Mcpherson Mammo Aminah July 16, 2022 1:57 PM documented in this encounter [facility] 07-14-2022 Instructions Sivakumar Matamoros PA-C - 07/14/2022 12:20 PM EDT Montelukast (Patient Education - Adult Medication) You must carefully read the Consumer Information Use and Disclaimer below in order to understand and correctly use this information Pronunciation (haider Lindsay kasrodrick) Brand Names: USSingulair Brand Names: [place]-Montelukast [DSC]; AG-Montelukast; APO-Montelukast; Auro-Montelukast; BIO-Montelukast; DOM-Montelukast; DOM-Montelukast FC; JAMP-Montelukast; M-Montelukast; Mar-Montelukast; MINT-Montelukast; MYLAN-Montelukast [DSC]; NRA-Montelukast; PMS-Montelukast; PRIVA-Montelukast FC; RAN-Montelukast; FERNANDO-Montelukast FC; SANDOZ Montelukast; Singulair; TEVA-Montelukast What is this drug used for? It is used to prevent breathing problems that happen with exercise. It is used to treat or prevent asthma. It is used to ease allergy signs. It may be given to you for other reasons. Talk with the doctor. For allergic reasons: This drug must only be used when other drugs cannot be used or have not worked. Talk with your doctor to be sure that the benefits of this drug are more than the risks. For breathing problems: This drug is not to be used to treat intense flare-ups of shortness of breath. Use a rescue inhaler. Talk with the doctor. What do I need to tell my doctor BEFORE I take this drug? If you are allergic to this drug; any part of this drug; or any other drugs, foods, or substances. Tell your doctor about the allergy and what signs you had. This drug may interact with other drugs or health problems. Tell your doctor and pharmacist about all of your drugs (prescription or OTC, natural products, vitamins) and health problems. You must check to make sure that it is safe for you to take this drug with all of your drugs and health problems. Do not start, stop, or change the dose of any drug without checking with your doctor. What are some things I need to know or do while I take this drug? For all uses of this drug: Tell all of your health care providers that you take this drug. This includes your doctors, nurses, pharmacists, and dentists. If you have phenylketonuria (PKU), talk with your doctor. Some products have phenylalanine. Tell your doctor if you are , plan on getting , or are breast-feeding. You will need to talk about the benefits and risks to you and the baby. For breathing problems: Call your doctor right away if your breathing problems get worse, if your rescue inhaler does not work as well, or if you need to use your rescue inhaler more often. If you take this drug for asthma or allergy, do not take another dose to prevent breathing problems that happen with exercise. If you have asthma and taking aspirin makes it worse, keep avoiding aspirin and NSAIDs while you take this drug. If you are switching to this drug from a steroid, do not stop taking the steroid all of a sudden. The dose of the steroid may need to be slowly lowered to avoid side effects. Talk with the doctor. What are some side effects that I need to call my doctor about right away? WARNING/CAUTION: Even though it may be rare, some people may have very bad and sometimes deadly side effects when taking a drug. Tell your doctor or get medical help right away if you have any of the following signs or symptoms that may be related to a very bad side effect: For all patients taking this drug: Signs of an allergic reaction, like rash; hives; itching; red, swollen, blistered, or peeling skin with or without fever; wheezing; tightness in the chest or throat; trouble breathing, swallowing, or talking; unusual hoarseness; or swelling of the mouth, face, lips, tongue, or throat. Signs of liver problems like dark urine, feeling tired, not hungry, upset stomach or stomach pain, light-colored stools, throwing up, or yellow skin or eyes. Signs of a pancreas problem (pancreatitis) like very bad stomach pain, very bad back pain, or very bad upset stomach or throwing up. Signs or symptoms of depression, suicidal thoughts, emotional ups and downs, abnormal thinking, anxiety, or lack of interest in life. Signs of a very bad skin reaction (Saul-Toan syndrome/toxic epidermal necrolysis) like red, swollen, blistered, or peeling skin (with or without fever); red or irritated eyes; or sores in the mouth, throat, nose, or eyes. Hallucinations (seeing or hearing things that are not there). Memory problems or loss. Feeling confused, not able to focus, or change in behavior. Strange or odd dreams. Trouble sleeping. Trouble speaking. Restlessness. Sleepwalking. Shakiness. Trouble controlling body movements. Seizures. Trouble breathing that is new or worse. Fever. Flu-like signs. Sinus pain. Chest pain. A heartbeat that does not feel normal. Any unexplained bruising or bleeding. A burning, numbness, or tingling feeling that is not normal. Ear pain. Muscle or joint pain. Swelling. Children: Bedwetting. What are some other side effects of this drug? All drugs may cause side effects. However, many people have no side effects or only have minor side effects. Call your doctor or get medical help if any of these side effects or any other side effects bother you or do not go away: Headache. Stomach pain or diarrhea. Signs of a common cold. Cough. These are not all of the side effects that may occur. If you have questions about side effects, call your doctor. Call your doctor for medical advice about side effects. You may report side effects to your national health agency. How is this drug best taken? Use this drug as ordered by your doctor. Read all information given to you. Follow all instructions closely. All products: Take with or without food. Keep taking this drug even when you are not having symptoms. If working out or playing sports causes signs, use at least 2 hours before doing it. If this drug is for asthma, take in the evening. Chewable tablet: Chew well before swallowing. Granules: Granules may be placed right in the mouth or mixed with cold or room temperature applesauce, baby formula, breast milk, mashed carrots, rice, or ice cream. Do not mix granules in other liquids. Do not open the packet until you are ready to take a dose. If mixing, take your dose within 15 minutes. Do not store for future use. What do I do if I miss a dose? Skip the missed dose and go back to your normal time. Do not take 2 doses at the same time or extra doses. How do I store and/or throw out this drug? Store at room temperature protected from light. Store in a dry place. Do not store in a bathroom. Store in original container. Keep all drugs in a safe place. Keep all drugs out of the reach of children and pets. Throw away unused or drugs. Do not flush down a toilet or pour down a drain unless you are told to do so. Check with your pharmacist if you have questions about the best way to throw out drugs. There may be drug take-back programs in your area. General drug facts If your symptoms or health problems do not get better or if they become worse, call your doctor. Do not share your drugs with others and do not take anyone else's drugs. Some drugs may have another patient information leaflet. If you have any questions about this drug, please talk with your doctor, nurse, pharmacist, or other health care provider. If you think there has been an overdose, call your poison control center or get medical care right away. Be ready to tell or show what was taken, how much, and when it happened. Last Reviewed Date 2019-06-16 Things you can try: Honey 1 tbsp Throat coat tea documented in this encounter [facility] 07-14-2022 History of Present illness Narrative 51 year old female with c/o persistent cough. Finished doxycycline and prednisone which helped her knee tremendously and muscle pain from coughing., No change in cough though. Cough is rarely productive. No fever, chills. Fatigue improving. 95% better. Headache from cough. No drainage outside her ususal allergy sx at this time of year. Notes feels tickly in throat, tight in upper chest. Can't walk far without feeling SOB. HISTORIES FAMILY HISTORY Problem Relation Age of Onset Hypertension Mother Seizures Mother HISTORY OF Cancer Mother CERVICAL Diabetes Mother Pre-diabetic Hypertension Maternal Grandmother Diabetes Maternal Grandmother Coronary Artery Disease Maternal Grandmother BYPASS SURGERY Cataract Maternal Grandmother Glaucoma Maternal Grandmother Macular Degen Maternal Grandfather other (MACULAR DEGENERATION) Maternal Grandfather Cancer Paternal Grandfather LUNG, bore miner operator, non smoker other (Non-Hodgkin's disease) Father Hyperlipidemia Son other (Bicuspid Aortic Valve) Son Hypertension Brother PAST MEDICAL HISTORY Diagnosis Date Abdominal pain, epigastric Abdominal pain, right lower quadrant Adjustment disorder with depressed mood Allergic rhinitis due to other allergen Esophagitis, unspecified Exercise-induced asthma possible, no spirometry in past Internal hemorrhoids without mention of complication Irritable bowel syndrome PMH - PAST MEDICAL HISTORY OF acme Superficial injury of hip, thigh, leg, and ankle ACL/MCL PARTIALLY TORN Temporomandibular joint sounds on opening and/or closing the jaw PAST SURGICAL HISTORY Procedure Laterality Date ARTHROSCOPY KNEE DIAGNOSTIC W/WO SYNOVIAL BX SPX Left 03/2017 Arthroscopy, knee COLONOSCOPY FLX DX W/COLLJ SPEC WHEN PFRMD 11/23/2005 Normal COLONOSCOPY FLX DX W/COLLJ SPEC WHEN PFRMD 09/23/2020 EGD TRANSORAL BIOPSY SINGLE/MULTIPLE 12/19/2008 Gastritis ESOPHAGOGASTRODUODENOSCOPY TRANSORAL DIAGNOSTIC 09/23/2020 LAPS ABD PRTM&OMENTUM DX W/WO SPEC BR/WA SPX Laparoscopy for endometriosis LAPS ABD PRTM&OMENTUM DX W/WO SPEC BR/WA SPX Laparoscopy for endometriosis REM LESION FACE,EAR,EYEL <5MM 06/30/2006 EXCISION LESION NASAL BRIDGE REM LESION FACE,EAR,EYEL <5MM 06/30/2006 LEFT INNER CANTHUS TOTAL ABDOMINAL HYSTERECT W/WO RMVL TUBE OVARY 2003 Hysterectomy for endometriosis, GABRIEL and BSO Social History Tobacco Use Smoking status: Never Smokeless tobacco: Never Vaping Use Vaping Use: Never used Substance Use Topics Alcohol use: Yes Comment: OCCASIONALLY Drug use: No ACTIVE PROBLEM LIST Allergic Rhinitis Due to Other Allergen Adjustment Disorder With Depressed Mood Temporomandibular Joint Sounds On Opening and/Or Closing The Jaw Irritable Bowel Syndrome Internal Hemorrhoids Without Mention of Complication Eczematous Dermatitis Other Psoriasis Lichenification and Lichen Simplex Chronicus H/O Total Hysterectomy With Removal of Both Tubes and Ovaries Pain in Joint, Lower Leg Myopia, Bilateral Tear of Medial Meniscus of Knee Joint Gastroesophageal Reflux Disease Without Esophagitis Ponv (Postoperative Nausea and Vomiting) Mild Intermittent Asthma Without Complication Acute Pain of Right Shoulder Snapping Scapula Syndrome of Right Shoulder Recurrent Major Depressive Disorder, in Partial Remission (Hcc) Arthritis of Left Knee Current Outpatient Medications Medication Sig Dispense Refill CINNAMON chrm/vineg/bit-orang peel/gr t (APPLE CIDER VINEGAR PLUS ORAL) Take by mouth. TURMERIC ORAL Take by mouth. PARoxetine (PAXIL) 10 mg tablet Take 1 tablet by mouth once daily. 90 tablet 3 omeprazole (PRILOSEC) 20 mg capsule Take 1 capsule by mouth once daily. 90 capsule 3 desvenlafaxine ER (PRISTIQ) 25 mg 24 hr tablet TAKE 1 TABLET BY MOUTH ONCE DAILY. WEANING 50MG ALTERNATING WITH 25MG X 1 WEEK, THEN 25MG DAILY X 1 WEEK , THEN 25MG EVERY OTHER DAY X 1 WEEK AND OFF. 10 tablet 0 clobetasol (TEMOVATE) 0.05 % ointment Apply selectively to spots or lesions of eczematous and psoriasiform dermatitis of elbows and lower legs: once to twice per day for up to 2-4 weeks or less as needed until clear and then try to stop or taper off to a bland emollient cream such as CeraVe cream (or Cetaphil cream) as able. AVOID deep fold areas, face, eyes, and eyelids with the Clobetasol. 60 g 2 ondansetron (ZOFRAN) 4 mg tablet Take 4 mg by mouth every 8 hours as needed for nausea/vomiting. cyclobenzaprine (FLEXERIL) 10 mg tablet Take 1 tablet by mouth three times daily as needed for Muscle Spasm. 30 tablet 5 promethazine (PHENERGAN) 25 mg tablet Take 1/2 - 1 tablet by mouth every 4 hours as needed for nausea 45 tablet 1 multivit-min/ferrous fumarate (MULTI VITAMIN ORAL) Take by mouth. nystatin (MYCOSTATIN) powder Apply 1 application to affected area four times daily. 15 g 0 diphenhydramine HCl (BENADRYL ORAL) Take by mouth as directed. acetaminophen (TYLENOL) 325 mg tablet Take 650 mg by mouth every 6 hours as needed. LORazepam (ATIVAN) 0.5 mg tab Take 1 tablet by mouth twice daily as needed. 45 tablet 0 fluticasone 50 mcg/actuation nasal spray Use 2 Sprays in each nostril once daily. Rinse mouth after use. 3 Bottle 3 fexofenadine (TELLY) 180 mg tablet Take 180 mg by mouth once daily. Cholecalciferol, Vitamin D3, 25 mcg (1,000 unit) cap Take 1,000 Units by mouth once daily. albuterol HFA (PROVENTIL HFA, VENTOLIN HFA) 90 mcg/actuation inhaler Inhale 2 Puffs as instructed every 4 hours as needed (for cough, wheezing, chest tightness or shortness of breath. Use with spacer. ). 18 g 3 No current facility-administered medications for this visit. HEPATITIS B(1 of 3 - 3-dose series) Never done SHINGRIX VACCINE(2 of 2) due on 03/24/2022 MAMMOGRAM due on 06/19/2022 EXAM: BP 122/74 Pulse 61 Temp 36.2 C (97.1 F) (Left Tympanic) Resp 16 SpO2 97% Pleasant adult woman in no acute distress. Alert and oriented all spheres. Normal affect and cognition. Speech normal. No deficits to learning or comprehension. Skin warm, dry, pink to lips and nailbeds. Normal turgor. Respirations regular and unlabored. HEENT: NCAT. No scleral icterus or conjunctival injection. TM's clear. Nose and oropharynx free from injection or lesion. Oral membranes moist and pink. No cervical lymph nodes. Thyroid non-tender, no masses, or enlargement. Carotids pulses 2+/4+ without bruits. No JVD with HOB at 30 degrees. Chest is normal shape. Lungs are clear to all greer with good air exchange through out. HRRR without murmur or gallop. No lifts, heaves, or rubs. Extrem: no clubbing or cyanosis. Edema: none. Extremities are warm and pink with prompt capillary refill. ASSESSMENT/PLAN: 1. Persistent cough for 3 weeks or longer - ICD9: 786.2, ICD10: R05.3 Push fluids. Discussed natural remedies. Start meds and report 1-2 weeks on progress. Consider LABA - BENZONATATE 100 MG CAPSULE - MONTELUKAST 10 MG TABLET Sivakumar Matamoros PA-C documented in this encounter [facility] 07-14-2022 Miscellaneous Notes Patient scheduled for nurse visit 07/28/22 to receive Shingrix vaccine. Please place order at this time. Shirley Rock LPN documented in this encounter [facility] 07-13-2022 Miscellaneous Notes Patient has been identified by name and date of : Yes Requested Prescriptions Pending Prescriptions Disp Refills albuterol HFA (PROVENTIL HFA, VENTOLIN HFA) 90 mcg/actuation inhaler 18 g 3 Sig: Inhale 2 Puffs as instructed every 4 hours as needed (for cough, wheezing, chest tightness or shortness of breath. Use with spacer. ). RX INSTRUCTIONS: Patient aware RX will be sent to pharmacy. No need to notify patient. Yesenia Vides LPN documented in this encounter [facility] 07-13-2022 Miscellaneous Notes Patient has been identified by name and date of : Yes Requested Prescriptions Pending Prescriptions Disp Refills PARoxetine (PAXIL) 10 mg tablet 90 tablet 3 Sig: Take 1 tablet by mouth once daily. RX INSTRUCTIONS: Patient aware RX will be sent to pharmacy. No need to notify patient. Yesenia Vides LPN documented in this encounter [facility] 07-13-2022 Miscellaneous Notes Patient has been identified by name and date of : Yes Requested Prescriptions Pending Prescriptions Disp Refills omeprazole (PRILOSEC) 20 mg capsule 90 capsule 3 Sig: Take 1 capsule by mouth once daily. RX INSTRUCTIONS: Patient aware RX will be sent to pharmacy. No need to notify patient. Kayla Martínez Ma documented in this encounter [facility] 06-28-2022 History of Present illness Narrative Subjective HPI HPI Doris Grace is a 51 year old female who presents today for CC of cough, congestion. This started 5 days ago/worsening. Has tried otc medication and inhaler for relief. Symptoms are worsened by nothing. Risk factors sick exposures at home. Hx of asthma. .Patient presents with: Cough: Pt reported chest congestion, Gomez x5 days. PAST MEDICAL HISTORY Diagnosis Date Abdominal pain, epigastric Abdominal pain, right lower quadrant Adjustment disorder with depressed mood Allergic rhinitis due to other allergen Esophagitis, unspecified Exercise-induced asthma possible, no spirometry in past Internal hemorrhoids without mention of complication Irritable bowel syndrome PMH - PAST MEDICAL HISTORY OF acme Superficial injury of hip, thigh, leg, and ankle ACL/MCL PARTIALLY TORN Temporomandibular joint sounds on opening and/or closing the jaw PAST SURGICAL HISTORY Procedure Laterality Date ARTHROSCOPY KNEE DIAGNOSTIC W/WO SYNOVIAL BX SPX Left 03/2017 Arthroscopy, knee COLONOSCOPY FLX DX W/COLLJ SPEC WHEN PFRMD 11/23/2005 Normal COLONOSCOPY FLX DX W/COLLJ SPEC WHEN PFRMD 09/23/2020 EGD TRANSORAL BIOPSY SINGLE/MULTIPLE 12/19/2008 Gastritis ESOPHAGOGASTRODUODENOSCOPY TRANSORAL DIAGNOSTIC 09/23/2020 LAPS ABD PRTM&OMENTUM DX W/WO SPEC BR/WA SPX Laparoscopy for endometriosis LAPS ABD PRTM&OMENTUM DX W/WO SPEC BR/WA SPX Laparoscopy for endometriosis REM LESION FACE,EAR,EYEL <5MM 06/30/2006 EXCISION LESION NASAL BRIDGE REM LESION FACE,EAR,EYEL <5MM 06/30/2006 LEFT INNER CANTHUS TOTAL ABDOMINAL HYSTERECT W/WO RMVL TUBE OVARY 2004 Hysterectomy for endometriosis, GABRIEL and BSO ALLERGIES Cat Hair Extract, Dog Hair, Dust, Feldene [Piroxicam], Grass Pollen, Horse Hair And Dander, Mold, Seldane [Other], and Trees MEDICATIONS semaglutide (OZEMPIC) 0.25 mg or 0.5 mg(2 mg/1.5 mL) pen Inject 0.25 mg subcutaneously one time a week. PARoxetine (PAXIL) 10 mg tablet Take 1 tablet by mouth once daily. desvenlafaxine ER (PRISTIQ) 25 mg 24 hr tablet TAKE 1 TABLET BY MOUTH ONCE DAILY. WEANING 50MG ALTERNATING WITH 25MG X 1 WEEK, THEN 25MG DAILY X 1 WEEK , THEN 25MG EVERY OTHER DAY X 1 WEEK AND OFF. clobetasol (TEMOVATE) 0.05 % ointment Apply selectively to spots or lesions of eczematous and psoriasiform dermatitis of elbows and lower legs: once to twice per day for up to 2-4 weeks or less as needed until clear and then try to stop or taper off to a bland emollient cream such as CeraVe cream (or Cetaphil cream) as able. AVOID deep fold areas, face, eyes, and eyelids with the Clobetasol. omeprazole (PRILOSEC) 20 mg capsule Take 1 capsule by mouth once daily. ondansetron (ZOFRAN) 4 mg tablet Take 4 mg by mouth every 8 hours as needed for nausea/vomiting. albuterol HFA (PROVENTIL HFA, VENTOLIN HFA) 90 mcg/actuation inhaler Inhale 2 Puffs as instructed every 4 hours as needed (for cough, wheezing, chest tightness or shortness of breath. Use with spacer. ). cyclobenzaprine (FLEXERIL) 10 mg tablet Take 1 tablet by mouth three times daily as needed for Muscle Spasm. promethazine (PHENERGAN) 25 mg tablet Take 1/2 - 1 tablet by mouth every 4 hours as needed for nausea multivit-min/ferrous fumarate (MULTI VITAMIN ORAL) Take by mouth. nystatin (MYCOSTATIN) powder Apply 1 application to affected area four times daily. diphenhydramine HCl (BENADRYL ORAL) Take by mouth as directed. acetaminophen (TYLENOL) 325 mg tablet Take 650 mg by mouth every 6 hours as needed. LORazepam (ATIVAN) 0.5 mg tab Take 1 tablet by mouth twice daily as needed. fluticasone 50 mcg/actuation nasal spray Use 2 Sprays in each nostril once daily. Rinse mouth after use. fexofenadine (TELLY) 180 mg tablet Take 180 mg by mouth once daily. Cholecalciferol, Vitamin D3, 25 mcg (1,000 unit) cap Take 1,000 Units by mouth once daily. doxycycline monohydrate 100 mg tablet Take 1 tablet by mouth twice daily for 7 days. predniSONE (DELTASONE) 20 mg tablet Take 2 tablets by mouth once daily for 5 days. FAMILY HISTORY Problem Relation Age of Onset Hypertension Mother Seizures Mother HISTORY OF Cancer Mother CERVICAL Diabetes Mother Pre-diabetic Hypertension Maternal Grandmother Diabetes Maternal Grandmother Coronary Artery Disease Maternal Grandmother BYPASS SURGERY Cataract Maternal Grandmother Glaucoma Maternal Grandmother Macular Degen Maternal Grandfather other (MACULAR DEGENERATION) Maternal Grandfather Cancer Paternal Grandfather LUNG, bore miner operator, non smoker other (Non-Hodgkin's disease) Father Hyperlipidemia Son other (Bicuspid Aortic Valve) Son Hypertension Brother Social History Tobacco Use Smoking status: Never Smokeless tobacco: Never Vaping Use Vaping Use: Never used Substance Use Topics Alcohol use: Yes Comment: OCCASIONALLY Drug use: No ROS Objective Blood pressure 124/68, pulse 115, temperature 37.1 C (98.7 F), temperature source Tympanic, resp. rate 18, SpO2 98 %. Physical Exam Constitutional: General: She is not in acute distress. Appearance: She is not toxic-appearing or diaphoretic. HENT: Head: Normocephalic and atraumatic. Cardiovascular: Rate and Rhythm: Normal rate and regular rhythm. Heart sounds: Normal heart sounds, S1 normal and S2 normal. Pulmonary: Effort: Pulmonary effort is normal. Breath sounds: Examination of the left-lower field reveals rhonchi. Rhonchi present. No decreased breath sounds, wheezing or rales. Lymphadenopathy: Cervical: No cervical adenopathy. Right cervical: No superficial cervical adenopathy. Left cervical: No superficial cervical adenopathy. Neurological: Mental Status: She is alert and oriented to person, place, and time. Gait: Gait is intact. ASSESSMENT/PLAN: 1. Lower resp. tract infection - ICD9: 519.8, ICD10: J22 (primary diagnosis) No xray at time of exam Tx with doxy and prednisone. F/u for continued s/s -If you experience chest pain/shortness of breath go to ER - DOXYCYCLINE MONOHYDRATE 100 MG TABLET - PREDNISONE 20 MG TABLET 2. History of asthma - ICD9: V12.69, ICD10: Z87.09 Steroid ordered. Continue inhaler - PREDNISONE 20 MG TABLET Bob Tran APRN.[employer] documented in this encounter [facility] 06-16-2022 Miscellaneous Notes Get Medical Advice on 06/16/22 STEFFI SCREENING W SAMUEL Matamoros PA-C documented in this encounter [facility] 05-26-2022 Miscellaneous Notes Patient advised insurance 3 months ago denied PA will have to pay out of pocket and use discount card. Please print rx Tricia Moses Ma documented in this encounter [facility] 05-26-2022 Miscellaneous Notes Please see pharmacy note documented in this encounter [facility] 05-26-2022 History of Present illness Narrative 51 year old female with c/o follow up Left knee pain, degenerative arthritis: 7 PT sessions with some progress, doing home exercises routinely. Saw Dr. Fairchild Left knee brace and gel shots scheduled Depression: Remains depressed but may a little better. Not sure Pristiq is really working. Feels tired all the time after started pristiq. Naps after work which is new. Prior agents: Bupropion Obesity: Semaglutide not covered by insurance, took for 2 months but then stopped Did seem to help. New insurance guidelines indicate coverage Vitals 06/12/2020 09/23/2020 09/23/2020 04/29/2021 WEIGHT in POUNDS 209 lb 6.4 oz 209 lb 202 lb HISTORIES FAMILY HISTORY Problem Relation Age of Onset Hypertension Mother Seizures Mother HISTORY OF Cancer Mother CERVICAL Diabetes Mother Pre-diabetic Hypertension Maternal Grandmother Diabetes Maternal Grandmother Coronary Artery Disease Maternal Grandmother BYPASS SURGERY Cataract Maternal Grandmother Glaucoma Maternal Grandmother Macular Degen Maternal Grandfather other (MACULAR DEGENERATION) Maternal Grandfather Cancer Paternal Grandfather LUNG, bore miner operator, non smoker other (Non-Hodgkin's disease) Father Hyperlipidemia Son other (Bicuspid Aortic Valve) Son Hypertension Brother PAST MEDICAL HISTORY Diagnosis Date Abdominal pain, epigastric Abdominal pain, right lower quadrant Adjustment disorder with depressed mood Allergic rhinitis due to other allergen Esophagitis, unspecified Exercise-induced asthma possible, no spirometry in past Internal hemorrhoids without mention of complication Irritable bowel syndrome PMH - PAST MEDICAL HISTORY OF [place] Superficial injury of hip, thigh, leg, and ankle ACL/MCL PARTIALLY TORN Temporomandibular joint sounds on opening and/or closing the jaw PAST SURGICAL HISTORY Procedure Laterality Date ARTHROSCOPY KNEE DIAGNOSTIC W/WO SYNOVIAL BX SPX Left 03/2017 Arthroscopy, knee COLONOSCOPY FLX DX W/COLLJ SPEC WHEN PFRMD 11/23/2005 Normal COLONOSCOPY FLX DX W/COLLJ SPEC WHEN PFRMD 09/23/2020 EGD TRANSORAL BIOPSY SINGLE/MULTIPLE 12/19/2008 Gastritis ESOPHAGOGASTRODUODENOSCOPY TRANSORAL DIAGNOSTIC 09/23/2020 LAPS ABD PRTM&OMENTUM DX W/WO SPEC BR/WA SPX Laparoscopy for endometriosis LAPS ABD PRTM&OMENTUM DX W/WO SPEC BR/WA SPX Laparoscopy for endometriosis REM LESION FACE,EAR,EYEL <5MM 06/30/2006 EXCISION LESION NASAL BRIDGE REM LESION FACE,EAR,EYEL <5MM 06/30/2006 LEFT INNER CANTHUS TOTAL ABDOMINAL HYSTERECT W/WO RMVL TUBE OVARY 2004 Hysterectomy for endometriosis, GABRIEL and BSO Social History Tobacco Use Smoking status: Never Smokeless tobacco: Never Vaping Use Vaping Use: Never used Substance Use Topics Alcohol use: Yes Comment: OCCASIONALLY Drug use: No ACTIVE PROBLEM LIST Allergic Rhinitis Due to Other Allergen Adjustment Disorder With Depressed Mood Temporomandibular Joint Sounds On Opening and/Or Closing The Jaw Irritable Bowel Syndrome Internal Hemorrhoids Without Mention of Complication Eczematous Dermatitis Other Psoriasis Lichenification and Lichen Simplex Chronicus H/O Total Hysterectomy With Removal of Both Tubes and Ovaries Pain in Joint, Lower Leg Myopia, Bilateral Tear of Medial Meniscus of Knee Joint Gastroesophageal Reflux Disease Without Esophagitis Ponv (Postoperative Nausea and Vomiting) Mild Intermittent Asthma Without Complication Acute Pain of Right Shoulder Snapping Scapula Syndrome of Right Shoulder Recurrent Major Depressive Disorder, in Partial Remission (Hcc) Arthritis of Left Knee Current Outpatient Medications Medication Sig Dispense Refill desvenlafaxine ER (PRISTIQ) 50 mg 24 hr tablet Take 1 tablet by mouth once daily. 90 tablet 1 clobetasol (TEMOVATE) 0.05 % ointment Apply selectively to spots or lesions of eczematous and psoriasiform dermatitis of elbows and lower legs: once to twice per day for up to 2-4 weeks or less as needed until clear and then try to stop or taper off to a bland emollient cream such as CeraVe cream (or Cetaphil cream) as able. AVOID deep fold areas, face, eyes, and eyelids with the Clobetasol. 60 g 2 omeprazole (PRILOSEC) 20 mg capsule Take 1 capsule by mouth once daily. 90 capsule 3 ondansetron (ZOFRAN) 4 mg tablet Take 4 mg by mouth every 8 hours as needed for nausea/vomiting. albuterol HFA (PROVENTIL HFA, VENTOLIN HFA) 90 mcg/actuation inhaler Inhale 2 Puffs as instructed every 4 hours as needed (for cough, wheezing, chest tightness or shortness of breath. Use with spacer. ). 18 g 3 cyclobenzaprine (FLEXERIL) 10 mg tablet Take 1 tablet by mouth three times daily as needed for Muscle Spasm. 30 tablet 5 promethazine (PHENERGAN) 25 mg tablet Take 1/2 - 1 tablet by mouth every 4 hours as needed for nausea 45 tablet 1 multivit-min/ferrous fumarate (MULTI VITAMIN ORAL) Take by mouth. nystatin (MYCOSTATIN) powder Apply 1 application to affected area four times daily. 15 g 0 diphenhydramine HCl (BENADRYL ORAL) Take by mouth as directed. acetaminophen (TYLENOL) 325 mg tablet Take 650 mg by mouth every 6 hours as needed. LORazepam (ATIVAN) 0.5 mg tab Take 1 tablet by mouth twice daily as needed. 45 tablet 0 fluticasone 50 mcg/actuation nasal spray Use 2 Sprays in each nostril once daily. Rinse mouth after use. 3 Bottle 3 fexofenadine (TELLY) 180 mg tablet Take 180 mg by mouth once daily. Cholecalciferol, Vitamin D3, 25 mcg (1,000 unit) cap Take 1,000 Units by mouth once daily. semaglutide (OZEMPIC) 0.25 mg or 0.5 mg(2 mg/1.5 mL) pen Inject 0.25 mg subcutaneously one time a week. 4 Each 0 No current facility-administered medications for this visit. HEPATITIS B(1 of 3 - 3-dose series) Never done SHINGRIX VACCINE(2 of 2) due on 03/24/2022 MAMMOGRAM due on 06/19/2022 EXAM: BP 118/70 Pulse 72 Resp 16 SpO2 98% Pleasant well appearing adult woman in no acute distress. Alert and oriented all spheres. Mood remains mildly dysthymic, easy rapport, congruent affect, and normal cognition. Speech normal. No deficits to learning or comprehension. Skin warm, dry, pink to lips and nailbeds. Normal turgor. Respirations regular and unlabored. Extrem: no clubbing or cyanosis. Edema: none. Extremities are warm and pink with prompt capillary refill. ASSESSMENT/PLAN: 1. Recurrent major depressive disorder, in partial remission (HCC) - ICD9: 296.35, ICD10: F33.41 (primary diagnosis) Trial Paxil. Educated on new medication administration, warnings and cautions, common side effects, anticipated duration or therapy, and instructions on cessation management to avoid risks if stops medication. Patient choice was discussed in shared decision making. Consider vortioxetine. 2. Obesity, Class II, BMI 35-39.9 - ICD9: 278.00, ICD10: E66.9 Weight decreasing - Behavioral intervention and - Pharmacological intervention Resubmit for coverage - SEMAGLUTIDE 0.25 MG OR 0.5 MG (2 MG/1.5 ML) SUBCUTANEOUS PEN INJECTOR 3. Arthritis of left knee - ICD9: 716.96, ICD10: M17.12 Following with ortho, anticipating gel injections. M Yusuf Matamoros PA-C documented in this encounter [facility] 05-24-2022 History of Present illness Narrative Episode Visit Count: 8 Therapist That Will Accept/Oversee The Plan Of Care: Crow Earl Start of Care Date: 03/19/22 Onset Date: 03/19/18 REHABILITATION AND SPORTS THERAPY PHYSICAL THERAPY TREATMENT NOTE ASSESSMENT: Doris Grace tolerated the session with no issues. She demonstrated improvements in knee strength measured via handheld dynamometer. The patient will continue to benefit from ongoing skilled physical therapy to progress toward set goals and for reassessment by supervising therapist. Current Frequency: 1x/month Duration: 4 weeks Total Number of Visits Planned: 1 Planned Treatment Interventions: Therapeutic exercise (42893), Neuromuscular re-education (42559), Manual therapy (59521), Therapeutic activities (64414), Self-fpc management (32430), Patient/Family/Caregiver Education, Body Mechanics Training PLAN FOR NEXT VISIT: [place] SUBJECTIVE: Patient Reason for Visit: Pt to try gel injections. She wants to continue exercises on her own and check back in ~ in a month. Functional Limitations: rising from a chair, standing, walking, stair negotiation, bending, heavy exertion, working Pain: Pain Pain Level: 5 Pain Location: Knee - Left Description: Aching, Sore Frequency: Continuous OBJECTIVE MEASURES WITH LEVEL OF FUNCTION: LE AROM L Knee Extension: -8 Degrees L Knee Flexion: 113 Degrees Dynamometer Strength Right Quadriceps Strength (lbs): 74 Left Quadriceps Strength (lbs): 56.6 Quad Strength Limb Symmetry Index (%): 76.49 Right Hamstring Strength (lbs): 50.4 Left Hamstring Strength (lbs): 36.6 Hamstring Strength Limb Symmetry Index(%): 72.62 TREATMENT: Therapeutic Exercise: 1: Sci[employer] x5 min (subjective taken at this time) 2: Issued pt handouts for progressions and regressions for HEP Skilled Intervention: Patient was educated in proper exercise technique and purpose for exercises. Skilled judgment was provided in selection of appropriate interventions. Provided written instruction for home exercise program to facilitate proper performance and compliance. Correct performance of therapeutic exercises was facilitated with verbal, visual, and tactile cuing. Patient education as noted. Billing Therapeutic Exercise Treatment Minutes: 41 Total Treatment Time Minutes (timed/untimed): 41 Crow Elliott PT documented in this encounter [facility] 05-16-2022 History of Present illness Narrative Images from the original note were not included. DEPARTMENT OF ORTHOPAEDICS HISTORY OF PRESENT ILLNESS: This is a pleasant 51 year old female, who presents today with a chief complaint of left knee pain. She complains of dull and sharp pain about the anterior and medial aspect of approximately many years duration. This pain is intermittent. She denies trauma. She complains that the pain is 4/10. She reports nocturnal pain. The pain is exacerbated by walking, managing stairs, prolonged standing, and prolonged sitting. Previous treatments have included surgery, OTC medicaiton, ice/heat, physical therapy, and steroid injections. She denies proximal radiation. She denies distal radiation. She denies numbness, tingling, or electric shocks. She reports catching, grinding, and giving way. She reports swelling and/or warmth. PAIN EVALUATION 05/15/2022 8488 Pain Level: 4 Pain Location: Knee-Left Description: Sharp;Dull;Aching;Throbbing;Pressure;S ore;Burning Duration Amount of Time: -- years Frequency: Intermittent Intervention/Comfort measure: Medication;Relaxation;Reposition PAST MEDICAL HISTORY Diagnosis Date Abdominal pain, epigastric Abdominal pain, right lower quadrant Adjustment disorder with depressed mood Allergic rhinitis due to other allergen Esophagitis, unspecified Exercise-induced asthma possible, no spirometry in past Internal hemorrhoids without mention of complication Irritable bowel syndrome PMH - PAST MEDICAL HISTORY OF acme Superficial injury of hip, thigh, leg, and ankle ACL/MCL PARTIALLY TORN Temporomandibular joint sounds on opening and/or closing the jaw PAST SURGICAL HISTORY Procedure Laterality Date ARTHROSCOPY KNEE DIAGNOSTIC W/WO SYNOVIAL BX SPX Left 03/2017 Arthroscopy, knee COLONOSCOPY FLX DX W/COLLJ SPEC WHEN PFRMD 11/23/2005 Normal COLONOSCOPY FLX DX W/COLLJ SPEC WHEN PFRMD 09/23/2020 EGD TRANSORAL BIOPSY SINGLE/MULTIPLE 12/19/2008 Gastritis ESOPHAGOGASTRODUODENOSCOPY TRANSORAL DIAGNOSTIC 09/23/2020 LAPS ABD PRTM&OMENTUM DX W/WO SPEC BR/WA SPX Laparoscopy for endometriosis LAPS ABD PRTM&OMENTUM DX W/WO SPEC BR/WA SPX Laparoscopy for endometriosis REM LESION FACE,EAR,EYEL <5MM 06/30/2006 EXCISION LESION NASAL BRIDGE REM LESION FACE,EAR,EYEL <5MM 06/30/2006 LEFT INNER CANTHUS TOTAL ABDOMINAL HYSTERECT W/WO RMVL TUBE OVARY 2004 Hysterectomy for endometriosis, GABRIEL and BSO Current Outpatient Medications Medication Sig Dispense Refill desvenlafaxine ER (PRISTIQ) 50 mg 24 hr tablet Take 1 tablet by mouth once daily. 90 tablet 1 desvenlafaxine ER (PRISTIQ) 25 mg 24 hr tablet Take 1 tablet by mouth once daily. 30 tablet 2 semaglutide (OZEMPIC) 0.25 mg or 0.5 mg(2 mg/1.5 mL) pen Inject 0.25 mg subcutaneously one time a week. 4 Each 0 clobetasol (TEMOVATE) 0.05 % ointment Apply selectively to spots or lesions of eczematous and psoriasiform dermatitis of elbows and lower legs: once to twice per day for up to 2-4 weeks or less as needed until clear and then try to stop or taper off to a bland emollient cream such as CeraVe cream (or Cetaphil cream) as able. AVOID deep fold areas, face, eyes, and eyelids with the Clobetasol. 60 g 2 buPROPion XL (WELLBUTRIN XL) 300 mg 24 hr tablet Take 1 tablet by mouth once daily. (Patient not taking: Reported on 01/27/2022) 90 tablet 0 escitalopram oxalate (LEXAPRO) 10 mg tablet Take 1 tablet by mouth once daily. (Patient taking differently: Take 20 mg by mouth once daily.) 90 tablet 0 omeprazole (PRILOSEC) 20 mg capsule Take 1 capsule by mouth once daily. 90 capsule 3 ondansetron (ZOFRAN) 4 mg tablet Take 4 mg by mouth every 8 hours as needed for nausea/vomiting. albuterol HFA (PROVENTIL HFA, VENTOLIN HFA) 90 mcg/actuation inhaler Inhale 2 Puffs as instructed every 4 hours as needed (for cough, wheezing, chest tightness or shortness of breath. Use with spacer. ). 18 g 3 cyclobenzaprine (FLEXERIL) 10 mg tablet Take 1 tablet by mouth three times daily as needed for Muscle Spasm. 30 tablet 5 promethazine (PHENERGAN) 25 mg tablet Take 1/2 - 1 tablet by mouth every 4 hours as needed for nausea 45 tablet 1 multivit-min/ferrous fumarate (MULTI VITAMIN ORAL) Take by mouth. nystatin (MYCOSTATIN) powder Apply 1 application to affected area four times daily. 15 g 0 diphenhydramine HCl (BENADRYL ORAL) Take by mouth as directed. acetaminophen (TYLENOL) 325 mg tablet Take 650 mg by mouth every 6 hours as needed. LORazepam (ATIVAN) 0.5 mg tab Take 1 tablet by mouth twice daily as needed. 45 tablet 0 fluticasone 50 mcg/actuation nasal spray Use 2 Sprays in each nostril once daily. Rinse mouth after use. 3 Bottle 3 fexofenadine (TELLY) 180 mg tablet Take 180 mg by mouth once daily. Cholecalciferol, Vitamin D3, 25 mcg (1,000 unit) cap Take 1,000 Units by mouth once daily. No current facility-administered medications for this visit. ALLERGIES Allergen Reactions Cat Hair Extract Dog Hair Dust Feldene [Piroxicam] BRUISING Grass Pollen Horse Hair And Dand* Mold Seldane [Other] HEART PALP Trees FAMILY HISTORY Problem Relation Age of Onset Hypertension Mother Seizures Mother HISTORY OF Cancer Mother CERVICAL Diabetes Mother Pre-diabetic Hypertension Maternal Grandmother Diabetes Maternal Grandmother Coronary Artery Disease Maternal Grandmother BYPASS SURGERY Cataract Maternal Grandmother Glaucoma Maternal Grandmother Macular Degen Maternal Grandfather other (MACULAR DEGENERATION) Maternal Grandfather Cancer Paternal Grandfather LUNG, bore miner operator, non smoker other (Non-Hodgkin's disease) Father Hyperlipidemia Son other (Bicuspid Aortic Valve) Son Hypertension Brother Social History Tobacco Use Smoking status: Never Smokeless tobacco: Never Vaping Use Vaping Use: Never used Substance Use Topics Alcohol use: Yes Comment: OCCASIONALLY Drug use: No 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 MUSCULOSKELETAL: See HPI. PSYCH: Negative for sleep disturbance, mood disorder and recent psychosocial stressors. HEMATOLOGY Negative for prolonged bleeding, bruising easily, and swollen nodes. ENDOCRINE: Negative for cold or heat intolerance, polyuria, polydipsia and goiter. NEURO: negative for lightheadedness, dizziness, tremor, gait imbalance, syncope and seizures. RADIOGRAPHS: Last XR Knee - Impression Only XR KNEE GENERAL 4V AP BOTH/PA BOTH/LAT/MERC LEFT Exam End: 03/03/2022 3:00 PM (Final result) Impression: IMPRESSION: Findings are suggestive of degenerative changes/osteoarthritis in the left knee. Tobacco Conditioner: TAMIKA Transcribe Date/Time: Mar 04 2022 9:45A Dictated by : GARY GAINES MD... OTHER STUDIES: Last MRI Knee - Impression Only MRI KNEE WO IVCON LT ([place]) Collected: 01/17/2016 11:01 AM (Final result) Impression: IMPRESSION: INCOMPLETE RADIAL TEAR OF THE POSTERIOR HORN MEDIAL MENISCUS. DEGENERATIVE CHONDRAL CHANGES IN THE MEDIAL AND PATELLOFEMORAL COMPARTMENTS DESCRIBED. ... PHYSICAL EXAM: There were no vitals taken for this visit. General: Appears stated age, well built, in no apparent distress. Psychiatric: Mood and affect appropriate. Alert and oriented x3. Musculoskeletal Exam: Gait and Station antalgic: left. LEFT KNEE EXAM: Inspection Skin Positive: Varus alignment. Incision Positive: Well healed arthroscopic incision. Atrophy No evidence of muscular atrophy. Range of Motion Knee 5-110 degrees Patella Decreased patellar mobility Palpation Effusion 1+ effusion Tenderness medial joint line and medial patellar facet Crepitance Positive palpable patellofemoral and medial compartment crepitance Meniscus Negative medial and lateral Mariaa's test Stability Positive valgus instability, remainder of stability exam is normal Lumbar Spine: Lumbar spine normal to inspection, palpation and motion. Negative straight leg raise and nerve root tension signs. Negative Catherine's, calf tenderness or palpable cords. Bilateral lower extremities show equal motion of the hips and ankles. Normal strength, tone, and stability of both lower extremities distally. Neurologic Exam: Intact medial leg and foot(L4), lateral leg and 1st web space(L5), lateral foot(S1) sensation in both lower extremities. Intact patellar tendon(L4), and Achilles(S1) reflexes in both lower extremities. Vascular: 2+ pedal pulses of both lower extremities. PROCEDURE: Not applicable IMPRESSION: 1. left knee severe degenerative joint disease. She is try conservative measures including knee arthroscopic meniscectomy, corticosteroid injections, physical therapy without any significant relief. NSAIDs are contraindicated given her history of gastritis. We discussed remaining treatment options including an product development specialist brace, seeking approval for viscosupplementation and ultimately if all conservative measures fail, arthroplasty can be considered. I do recommend that we reserve arthroplasty for the method of absolute last resort and she is in agreement. She would like to try the product development specialist brace. Focused examination of Left knee, patient has mild laxity and slight joint space opening MEDIAL with valgus stress. Rationale for Viscosupplementation: Initial Request As a part of a multimodal treatment plan, we are requesting authorization of hyaluronic acid viscosupplementation injections for the improvement of symptoms related to osteoarthritis. Authorization is being requested for treatment of the Left knee. Rationale for authorization of these injections is based on the following elements: Signs and Symptoms Length of symptoms > 3 months Pain interferes with ADLs? Yes Radiographic evidence of OA? Yes Previous Treatments Bracing attempted? Yes Formal Physical Therapy (PT)/ Home Exercise Program (HEP) attempted? Patient completed a comprehensive PT program with compliance to HEP NSAID medication attempted? Contraindicated Corticosteroid injection attempted? Patient has had a previous CSI with intermittent relief Weight management attempted? Yes Patient is no longer symptomatic following the above treatments Requested Viscosupplementation Preferred product: Euflexxa Alternative product: Durolane or payor preferred PLAN: 1. Medication: Continue current medications. 2. Test(s)/Imaging/Referral(s): Director Information brace referral. 3. Intervention: Knee rehabilitation protocol instructed and given to patient, WBAT, Seek approval for viscosupplementation and contact bracing company for product development specialist brace measurement.. 4. Follow-up: After product development specialist brace has been fit. Evangelina Zambrano MD I would like to thank you for the kind referral of . I appreciate the opportunity to be involved in her care. Please do not hesitate to call upon me if I may be of further assistance. documented in this encounter [facility] 05-14-2022 History of Present illness Narrative Episode Visit Count: 7 Therapist That Will Accept/Oversee The Plan Of Care: Crow Elliott Start of Care Date: 03/19/22 Onset Date: 03/19/18 [facility]ABILITATION AND SPORTS THERAPY PHYSICAL THERAPY TREATMENT NOTE ASSESSMENT: Doris Grace tolerated the session with fatigue and no issues. She demonstrated improvements in exercise tolerance with no increase in pain. The patient will continue to benefit from ongoing skilled physical therapy to progress toward set goals. PLAN FOR NEXT VISIT: Continue BFR per tolerance. May add in LAQ or step ups SUBJECTIVE: Patient Reason for Visit: Pt a little more swollen today, but no more pain than usual. Just felt tired after last session, tolerating BFR well overall Pain: Pain Pain Level: 5 Pain Location: Knee - Left Description: Aching, Sore Frequency: Continuous OBJECTIVE MEASURES WITH LEVEL OF FUNCTION: Response to BFR monitored throughout TREATMENT: Therapeutic Exercise: 1: BFR cellular swell (132 mmHg, large cuff, x5 min on, 3 min off) 2: BFR SAQ 5# x30, 15, 15, 15 (30 sec rest between sets, 1 min between exercises) 3: BFR calf raises x30, 15, 15, 15 (30 sec rest between sets) 4: SciFit x5 min (Used to restore knee ROM following BFR today) Skilled Intervention: Patient was educated in proper exercise technique and purpose for exercises. Skilled judgment was provided in selection of appropriate interventions. Provided written instruction for home exercise program to facilitate proper performance and compliance. Correct performance of therapeutic exercises was facilitated with verbal and visual cuing. Billing Therapeutic Exercise Treatment Minutes: 40 Total Treatment Time Minutes (timed/untimed): 40 Crow Elliott PT documented in this encounter [facility] 05-13-2022 History of Present illness Narrative Episode Visit Count: 6 Therapist That Will Accept/Oversee The Plan Of Care: Crow Elliott Start of Care Date: 03/19/22 Onset Date: 03/19/18 REHABILITATION AND SPORTS THERAPY PHYSICAL THERAPY TREATMENT NOTE ASSESSMENT: Doris Grace tolerated the session with fatigue and decreased symptoms. She demonstrated improvements in exercise tolerance. The patient will continue to benefit from ongoing skilled physical therapy to progress toward set goals. PLAN FOR NEXT VISIT: Continue BFR SUBJECTIVE: Patient Reason for Visit: Pt is pretty sore today. Not sure why, but feels it may have come with change in weather Pain: Pain Pain Level: 6 Pain Location: Knee - Left Description: Aching, Sore Frequency: Continuous OBJECTIVE MEASURES WITH LEVEL OF FUNCTION: Knee swelling and patient response to BFR monitored throughout TREATMENT: Therapeutic Exercise: 1: BFR cellular swell (Large cuff around LLE, 132 mmHg, 5 min on, 3 min off x1 round) 2: BFR SAQ 5# x30, 15, 15, 15 (30 sec break between sets and 1 min between next exercise) 3: BFR Ankle pumps x30, 15, 15, 15 (30 sec break between sets) 4: SciFit x5 min (performed after exercise to help restore knee ROM following BFR) Skilled Intervention: Patient was educated in proper exercise technique and purpose for exercises. Skilled judgment was provided in selection of appropriate interventions. Provided written instruction for home exercise program to facilitate proper performance and compliance. Correct performance of therapeutic exercises was facilitated with verbal, visual, and tactile cuing. Billing Therapeutic Exercise Treatment Minutes: 40 Total Treatment Time Minutes (timed/untimed): 40 Crow Elliott PT documented in this encounter [facility] 05-01-2022 History of Present illness Narrative Episode Visit Count: 5 Therapist That Will Accept/Oversee The Plan Of Care: Crow Elliott Start of Care Date: 03/19/22 Onset Date: 03/19/18 REHABILITATION AND SPORTS THERAPY PHYSICAL THERAPY TREATMENT NOTE ASSESSMENT: Doris Grace tolerated the session with no issues. She demonstrated good tolerance to BFR initiation today. The patient will continue to benefit from ongoing skilled physical therapy to progress toward set goals. PLAN FOR NEXT VISIT: Continue BFR for improved strength SUBJECTIVE: Patient Reason for Visit: Pt doing well today, no issues. Fairly normal day with only moderate/normal pain Pain: Pain Pain Level: 5 Pain Location: Knee - Left Description: Aching;Sore Frequency: Continuous OBJECTIVE MEASURES WITH LEVEL OF FUNCTION: Monitored patient response to BFR throughout session TREATMENT: Therapeutic Exercise: 1: SciFit setting 11 x5 min 2: BFR cellular swell (5 min on, 3 min off, x5 rounds. 132 mmHg, large cuff. 1 round of 10 sec on, 10 sec off quad isometrics) Skilled Intervention: Patient was educated in proper exercise technique and purpose for exercises. Skilled judgment was provided in selection of appropriate interventions. Correct performance of therapeutic exercises was facilitated with verbal cuing. Billing Therapeutic Exercise Treatment Minutes: 41 Total Treatment Time Minutes (timed/untimed): 41 Crow Elliott PT documented in this encounter [facility] 03-31-2022 History of Present illness Narrative Refill Authorization Consent Doris K Jaime was encountered by text or mychart message to obtain consent for pharmacist managed refill authorization. Patient gives consent to the authorization of prescriptions by a pharmacist. Marline Lucas RN 03/31/2022 documented in this encounter [facility] 03-26-2022 History of Present illness Narrative Episode Visit Count: 2 Therapist That Will Accept/Oversee The Plan Of Care: Crow Elliott Start of Care Date: 03/19/22 Onset Date: 03/19/18 Patient Identified by Name and Date of : Yes REHABILITATION AND SPORTS THERAPY PHYSICAL THERAPY TREATMENT NOTE ASSESSMENT: Doris Dulce Grace tolerated the session with fatigue. She demonstrated difficulty with quad activation with quad sets. The patient will continue to benefit from ongoing skilled physical therapy to progress toward set goals. PLAN FOR NEXT VISIT: SLR SUBJECTIVE: Patient Reason for Visit: Pt reports that her knee is feeling about the same, not a lot of change. Pt states she has been doing a lot of stretching and may have gained some range of motion but not sure. Pain: Pain Pain Level: 5 Pain Location: Knee - Left Description: Aching;Sharp;Sore Frequency: Walking Post Treatment Pain Post Treatment Pain Level: No Change OBJECTIVE MEASURES WITH LEVEL OF FUNCTION: Pt able to perform increased reps of exercises without increase in symptoms. TREATMENT: Therapeutic Exercise: 1: Seated Stepper x 5 minutes, no resistance. (Discussed current HEP, some pinching on medial knee with extension) 2: Gastroc stretch 3x30 sec 3: Seated HS stretch 3x30 sec 4: Quad sets 3x10, 5 sec holds (Pt wanted to ER LE to complete exercise, correction of alignement made. Tapping on muscle belly of quads to facilitate them. Also had pt try exercise on RLE , pt then able to complete quad contraction without difficulty) 5: Heel slides 3x10, 5 sec holds 6: SL hip abduction 3x10 7: SL clamshell 3x10 8: SAQ 3x10 LLE Skilled Intervention: Patient was educated in proper exercise technique and purpose for exercises. Skilled judgment was provided in selection of appropriate interventions. Correct performance of therapeutic exercises was facilitated with verbal and visual and tactile cuing. Billing Therapeutic Exercise Treatment Minutes: 43 Total Treatment Time Minutes (timed/untimed): 43 Melodie Miguel [employer] SALES MANAGER Crow Elliott PT documented in this encounter [facility] 03-25-2022 Miscellaneous Notes Patient received medication with no issue Tricia Moses Ma PA submitted through [facility] with paper form and faxed Tricia Moses Ma documented in this encounter [facility] 03-19-2022 History of Present illness Narrative Episode Visit Count: 1 Therapist That Will Accept/Oversee The Plan Of Care: Crow Elliott Start of Care Date: 03/19/22 Onset Date: 03/19/18 Patient Identified by Name and Date of : Yes REHABILITATION AND SPORTS THERAPY PHYSICAL THERAPY EVALUATION PLAN OF CARE: Assessment: Doris Grace presents with chief complaint of L knee pain that interferes with sitting;rising from a chair;standing;walking;stair negotiation;kneeling;squatting;working . She presents with impairments in ADL's, gait, independence in exercise, overall function, range of motion, strength , symptom management, and tissue tenderness. PROMIS (Patient-Reported Outcomes Measurement Information System) scores were reviewed and physical function domain identified as a rehabilitation concern. Prognosis for therapy is Fair due to: clinical presentation;chronic nature of impairments;limited tolerance to activity;occupational demands . She will benefit from skilled therapy services to meet the goals established for this plan of care as noted below. Goals for Episode of Care: created on 03/19/22 through 05/20/22 [place] in home exercise program. Patient will decrease pain rating by 2 points to meet minimal clinical important difference for numeric pain rating scale. Patient will increase active ROM of L knee by 20 degrees total to allow pt to to improve postural alignment, to improve performance of ADLs, and to improve gait mechanics / gait pattern . Patient will demonstrate increase in LLE strength to 4+/5 during manual muscle testing in order to improve function for basic self-care tasks, home management tasks, leisure / recreation skills, light functional tasks, prior functional tasks, and work tasks. Perform walking, stairs with decreased report of symptoms/pain in 6-8 weeks. Planned Interventions, Frequency, and Duration: Current Frequency: 1x/week Duration: 8 weeks Total Number of Visits Planned: 8 Planned Treatment Interventions: Therapeutic exercise (11419);Neuromuscular re-education (60655);Manual therapy (19798);Therapeutic activities (95406);Self-fpc management (97505);Patient/Family/Caregiver Education;Body Mechanics Training PLAN FOR NEXT VISIT: CHANCE Schaffer. May be a candidate for BFR Patient demonstrates good understanding of plan of care and treatment. The above goals and plan of care were discussed and agreed upon by patient/family. SUBJECTIVE: Doris Grace is a 51 year old female seen today for L knee pain for at least a year, with worsening onset. Pt notes any activity up on her feet hurts, with the longer she is active the worse it gets. Xrays note bone on bone arthritis and a loose body in the joint. Does not stop her from doing anything, but the more she does the more it hurts. PMH of knee surgery on the L to repair meniscus Functional Limitations: sitting;rising from a chair;standing;walking;stair negotiation;kneeling;squatting;working Prior Level of Function: Independent without limitations Intake Information: Prescription present Previous Treatment: Physical Therapy ;NSAIDs ;Surgery Pain: Pain Pain Level: 8 Pain Location: Knee - Left Description: Aching;Sharp;Sore Frequency: Continuous PROMIS Scales Higher is Better 06/29/2020 08/21/2021 03/18/2022 Phys Func - Score - 41 (mild dysfunction) 35 (moderate dysfunction) Phys Func - Percentile - 18 % 7 % Social Roles - Score - 50 (within normal limits) - Social Role - Percentile - 50 % - GH Physical - Score 42.3 - 37.4 (Fair) GH Physical - Percentile 22 % - 10 % GH Mental - Score 48.3 - 41.1 (Good) GH Mental - Percentile 43 % - 19 % Self-Eff Symptom - Score - - 46 (Average) Self-Eff Symptom - Percentile - - 34 % T-scores: mean of general population = 50. 5 points is clinically meaningfully difference Percentiles provide an indication of how the patient's score ranks in relation to the general population. Higher percentile rankings indicate better function/quality of life. 50th percentile is the average of the general population and indicates half of respondents had a worse score. Lower is Better 08/21/2021 Fatigue - Score 59 (mild) Fatigue - Percentile 18 % T-scores: mean of general population = 50. 5 points is clinically meaningfully difference Percentiles provide an indication of how the patient's score ranks in relation to the general population. Higher percentile rankings indicate better function/quality of life. 50th percentile is the average of the general population and indicates half of respondents had a worse score. OBJECTIVE MEASURES WITH LEVEL OF FUNCTION: Knee Observations L Knee Palpation Tenderness: Medial gastroc head;Medial Hamstring;Medial joint line LE AROM R Knee Extension: 1 Degrees R Knee Flexion: 130 Degrees L Knee Extension: -25 Degrees L Knee Flexion: 115 Degrees LE Strength R LE Strength: 5/5 L LE Strength: 4/5 Special Tests - Knee Knee Special Tests: Mariaa's Test Mariaa's Test: Left Positive Education: TREATMENT: PT Treatment Interventions: Therapeutic Exercise Evaluation Therapeutic Exercise: 1: *Patellar mobs 3x[address] way 2: *Gastroc stretch 3x30 sec 3: *HS stretch 3x30 sec 4: *Quad sets 3x10, 5 sec holds 5: *Heel slides 3x10, 5 sec holds 6: *SL hip abduction 3x10 Skilled Intervention: Patient was educated in proper exercise technique and purpose for exercises. Skilled judgment was provided in selection of appropriate interventions. Provided written instruction for home exercise program to facilitate proper performance and compliance. Correct performance of therapeutic exercises was facilitated with verbal, visual, and tactile cuing. Billing * Evaluation Low Complexity: 1 Unit Therapeutic Exercise Treatment Minutes: 15 Total Treatment Time Minutes (timed/untimed): 35 Crow Elliott PT documented in this encounter [facility] 03-04-2022 Miscellaneous Notes Patient is needing refill on medication. Needs sent to home delivery in order to continue. Asking to please increase dose at this time. Only has 1 week left. documented in this encounter [facility] 03-03-2022 History of Present illness Narrative Radiology Service Progress Note PATIENT NAME: Doris Grace DATE OF SERVICE: March 03, 2022 TIME: 2:45 PM PATIENT IDENTITY VERIFICATION COMPLETED USING TWO (2) IDENTIFIERS: Name and Date of confirmed by patient verbally. FALL SCREENING: Has the patient had 2 falls in the last year or 1 fall with injury or currently using an Ambulatory Assistive Device (Walker, Cane, Wheelchair, Crutches, etc.)? No PATIENT GENDER DATA: Female. status: : No status: NO. PATIENT RELEVANT IMPLANT DATA REVIEWED: Not Applicable RADIOLOGY DEPARTMENT: General X-ray: Exam(s) Completed: Lower Extremity X-Ray(s): Knee, AP / Lat / Tunne / Merchant Left and Wt. Bearing PERIPHERAL IV DATA: Not applicable SIGNED BY: RT Giuseppe(R) March 03, 2022 2:59 PM documented in this encounter [facility] 03-02-2022 Miscellaneous Notes 2022 Weight goal Set Sent via USPS Last 2 Encounter Wt Readings: Date: Wt: 04/29/2021 91.6 kg (202 lb) 09/23/2020 94.8 kg (209 lb) 2022 Weight goal: 3 BMI goal set Weight goal to reach between 11/24/2022 - 01/09/2023 is 185 pounds. Last 3 LDL readings: LDL Cholesterol (mg/dL) Date Value 10/06/2019 70 05/29/2016 71 06/24/2013 73 No results found for: LDLCHOLDIR documented in this encounter [facility] 02-06-2022 Miscellaneous Notes Patient notified of provider message I don't use phentermine and can't use this medication detention. Please have her call the insurance and ask what, if anything [facility] covers for weight loss. Thanks, Tony Matamoros PA-C Desvenlafaxine was approved through 2038 Ozempic was denied due to dx not FDA approved. Pt asking if you can send rx in for Qsymia to [facility]? Pt can use discount coupon. Please advise. Janet Palomino LPN PA submitted for both Ozempic and Desvenlafaxine. [id number] (Ozempic) [id number] (desvenlafaxine) Please keep encounter open until final decision has been received and documented from insurance company. Janet Palomino LPN documented in this encounter [facility] 01-27-2022 Instructions Sivakumar Matamoros PA-C - 01/27/2022 8:37 AM EDT Desvenlafaxine: Patient drug information Access [employer] Online for additional drug information, tools, and databases. Copyright 5622-9274 [employer] All rights reserved. (For additional information see Desvenlafaxine: Drug information) You must carefully read the Consumer Information Use and Disclaimer below in order to understand and correctly use this information. Brand Names: [place] Khedezla [DSC]; Pristiq Brand Names: Byron APO-Desvenlafaxine; Pristiq Warning Drugs like this one have raised the chance of suicidal thoughts or actions in children and young adults. The risk may be greater in people who have had these thoughts or actions in the past. All people who take this drug need to be watched closely. Call the doctor right away if signs like low mood (depression), nervousness, restlessness, grouchiness, panic attacks, or changes in mood or actions are new or worse. Call the doctor right away if any thoughts or actions of suicide occur. This drug is not approved for use in children. Talk with the doctor. What is this drug used for? It is used to treat low mood (depression). It may be given to you for other reasons. Talk with the doctor. What do I need to tell my doctor BEFORE I take this drug? If you are allergic to this drug; any part of this drug; or any other drugs, foods, or substances. Tell your doctor about the allergy and what signs you had. If you have narrow-angle glaucoma. If you are taking any of these drugs: Linezolid or methylene blue. If you have taken certain drugs for depression or Parkinson's disease in the last 14 days. This includes isocarboxazid, phenelzine, tranylcypromine, selegiline, or rasagiline. Very high blood pressure may happen. If you are taking another drug that has the same drug in it. If you are using another drug like this one. If you are not sure, ask your doctor or pharmacist. This is not a list of all drugs or health problems that interact with this drug. Tell your doctor and pharmacist about all of your drugs (prescription or OTC, natural products, vitamins) and health problems. You must check to make sure that it is safe for you to take this drug with all of your drugs and health problems. Do not start, stop, or change the dose of any drug without checking with your doctor. What are some things I need to know or do while I take this drug? Tell all of your health care providers that you take this drug. This includes your doctors, nurses, pharmacists, and dentists. It may take several months to see full effect. Avoid driving and doing other tasks or actions that call for you to be alert until you see how this drug affects you. To lower the chance of feeling dizzy or passing out, rise slowly if you have been sitting or lying down. Be careful going up and down stairs. Do not stop taking this drug all of a sudden without calling your doctor. You may have a greater risk of side effects. If you need to stop this drug, you will want to slowly stop it as ordered by your doctor. High blood pressure has happened with this drug. Have your blood pressure checked as you have been told by your doctor. Avoid drinking alcohol while taking this drug. Talk with your doctor before you use marijuana, other forms of cannabis, or prescription or OTC drugs that may slow your actions. This drug may raise the chance of bleeding. Sometimes, bleeding can be life-threatening. Talk with the doctor. Some people may have a higher chance of eye problems with this drug. Your doctor may want you to have an eye exam to see if you have a higher chance of these eye problems. Call your doctor right away if you have eye pain, change in eyesight, or swelling or redness in or around the eye. This drug can cause low sodium levels. Very low sodium levels can be life-threatening, leading to seizures, passing out, trouble breathing, or . This drug may affect certain lab tests. Tell all of your health care providers and lab workers that you take this drug. If you are 65 or older, use this drug with care. You could have more side effects. Tell your doctor if you are , plan on getting , or are breast-feeding. You will need to talk about the benefits and risks to you and the baby. Taking this drug in the third trimester of may lead to some health problems in the . Talk with the doctor. What are some side effects that I need to call my doctor about right away? WARNING/CAUTION: Even though it may be rare, some people may have very bad and sometimes deadly side effects when taking a drug. Tell your doctor or get medical help right away if you have any of the following signs or symptoms that may be related to a very bad side effect: Signs of an allergic reaction, like rash; hives; itching; red, swollen, blistered, or peeling skin with or without fever; wheezing; tightness in the chest or throat; trouble breathing, swallowing, or talking; unusual hoarseness; or swelling of the mouth, face, lips, tongue, or throat. Signs of low sodium levels like headache, trouble focusing, memory problems, feeling confused, weakness, seizures, or change in balance. Signs of bleeding like throwing up or coughing up blood; vomit that looks like coffee grounds; blood in the urine; black, red, or tarry stools; bleeding from the gums; abnormal vaginal bleeding; bruises without a cause or that get bigger; or bleeding you cannot stop. Signs of high blood pressure like very bad headache or dizziness, passing out, or change in eyesight. Signs of lung or breathing problems like shortness of breath or other trouble breathing, cough, or fever. Chest pain or pressure. Seizures. Feeling very tired or weak. Hallucinations (seeing or hearing things that are not there). Some men have had sexual problems when taking this drug. These include lowered interest in sex and not able to get an erection. Call your doctor right away if you have sexual problems when taking this drug. A severe and sometimes deadly problem called serotonin syndrome may happen. The risk may be greater if you also take certain other drugs. Call your doctor right away if you have agitation; change in balance; confusion; hallucinations; fever; fast or abnormal heartbeat; flushing; muscle twitching or stiffness; seizures; shivering or shaking; sweating a lot; severe diarrhea, upset stomach, or throwing up; or very bad headache. What are some other side effects of this drug? All drugs may cause side effects. However, many people have no side effects or only have minor side effects. Call your doctor or get medical help if any of these side effects or any other side effects bother you or do not go away: Feeling dizzy, sleepy, tired, or weak. Upset stomach or throwing up. Constipation. Dry mouth. Trouble sleeping. Not hungry. Sweating. Shakiness. You may see something that looks like the tablet in your stool. This is normal and not a cause for concern. If you have questions, talk with your doctor. These are not all of the side effects that may occur. If you have questions about side effects, call your doctor. Call your doctor for medical advice about side effects. You may report side effects to your national health agency. How is this drug best taken? Use this drug as ordered by your doctor. Read all information given to you. Follow all instructions closely. Take with or without food. Swallow whole with fluid. Do not chew, break, crush, or dissolve. Take this drug at the same time of day. Keep taking this drug as you have been told by your doctor or other health care provider, even if you feel well. What do I do if I miss a dose? Take a missed dose as soon as you think about it. If it is close to the time for your next dose, skip the missed dose and go back to your normal time. Do not take 2 doses at the same time or extra doses. How do I store and/or throw out this drug? Store at room temperature. Store in a dry place. Do not store in a bathroom. Keep all drugs in a safe place. Keep all drugs out of the reach of children and pets. Throw away unused or drugs. Do not flush down a toilet or pour down a drain unless you are told to do so. Check with your pharmacist if you have questions about the best way to throw out drugs. There may be drug take-back programs in your area. General drug facts If your symptoms or health problems do not get better or if they become worse, call your doctor. Do not share your drugs with others and do not take anyone else's drugs. Some drugs may have another patient information leaflet. If you have any questions about this drug, please talk with your doctor, nurse, pharmacist, or other health care provider. If you think there has been an overdose, call your poison control center or get medical care right away. Be ready to tell or show what was taken, how much, and when it happened. Last Reviewed [id number] Consumer Information Use and Disclaimer This information should not be used to decide whether or not to take this medicine or any other medicine. Only the healthcare provider has the knowledge and training to decide which medicines are right for a specific patient. This information does not endorse any medicine as safe, effective, or approved for treating any patient or health condition. This is only a brief summary of general information about this medicine. It does NOT include all information about the possible uses, directions, warnings, precautions, interactions, adverse effects, or risks that may apply to this medicine. This information is not specific medical advice and does not replace information you receive from the healthcare provider. You must talk with the healthcare provider for complete information about the risks and benefits of using this medicine. The use of this information is governed by the [employer] End User License Agreement, available at https://www.[employer]/en/jayme will/[employer]/about/kayla. 2020 [employer]. and its affiliates and/or licensors. All rights reserved. Use of [employer] is subject to the Subscription and License Agreement. Topic 77856 Version 147.0 documented in this encounter [facility] 01-27-2022 History of Present illness Narrative 51 year old female with c/o medication follow up Wants to lose weight Feels hungry all the time. Tries to hold back but is often alone, depressed and eats to feel better. Would like to try whatever change in medications would help. Not yet interested in bariatric. Adjustment disorder with depressed mood (primary encounter diagnosis) Recurrent major depressive disorder, in partial remission (hcc) Current medications: Wellbutrin XL 450mg daily stopped 2-3 months ago Escitalopram 10mg daily Change in medication Yes. Currently in counseling? Seeing psych Urszula Echevarria CNP intermittently. Also seeing Any Medication side effects? Not effective, weight gain. Sleep disturbance? No. Could sleep all the time Loss of interest in usual pleasurable activities?Yes. Sense of guilt, shame, low self esteem?No. Energy: low Trouble with concentration? No. Changes in appetite? Yes. Always hungry Changes in weight? Yes Psychomotor retardation: No Suicidal thoughts: No Racing thoughts? No. Interpersonal/ family conflicts? Yes. Irritability? No. GERD Current medication: omeprazole 20mg daily AC Ondansetron 4mg prn vomiting Current symptoms: b none. Last Mg level if on PPI chronically: none. Heartburn is controlled: Yes. Dysphagia: No. Bloody or black stools: No. Bowel changes: No. Last EGD and/or colonoscopy: 09/23/2020. - Normal examined jejunum. - Duodenitis. - Gastritis. Biopsied. - Mildly severe reflux esophagitis. Rule out - entire colon normal, no specimens Path: 1. Esophagus, distal biopsy (A) - Reactive esophageal squamous mucosa with rare intraepithelial eosinophils, compatible with reflux esophagitis (up to 1 eosinophil per high power field). - Inflamed gastric cardia-type mucosa, negative for intestinal metaplasia. 2. Stomach, antrum, biopsy (B) - Gastric antral mucosa with no diagnostic alteration. - Negative for Helicobacter pylori organisms on routine stain. HISTORIES FAMILY HISTORY Problem Relation Age of Onset Hypertension Mother Seizures Mother HISTORY OF Cancer Mother CERVICAL Diabetes Mother Pre-diabetic Hypertension Maternal Grandmother Diabetes Maternal Grandmother Coronary Artery Disease Maternal Grandmother BYPASS SURGERY Cataract Maternal Grandmother Glaucoma Maternal Grandmother Macular Degen Maternal Grandfather other (MACULAR DEGENERATION) Maternal Grandfather Cancer Paternal Grandfather LUNG, bore miner operator, non smoker other (Non-Hodgkin's disease) Father Hyperlipidemia Son other (Bicuspid Aortic Valve) Son Hypertension Brother PAST MEDICAL HISTORY Diagnosis Date Abdominal pain, epigastric Abdominal pain, right lower quadrant Adjustment disorder with depressed mood Allergic rhinitis due to other allergen Esophagitis, unspecified Exercise-induced asthma possible, no spirometry in past Internal hemorrhoids without mention of complication Irritable bowel syndrome PMH - PAST MEDICAL HISTORY OF acme Superficial injury of hip, thigh, leg, and ankle ACL/MCL PARTIALLY TORN Temporomandibular joint sounds on opening and/or closing the jaw PAST SURGICAL HISTORY Procedure Laterality Date ARTHROSCOPY KNEE DIAGNOSTIC W/WO SYNOVIAL BX SPX Left 03/2017 Arthroscopy, knee COLONOSCOPY FLX DX W/COLLJ SPEC WHEN PFRMD 11/23/2005 Normal COLONOSCOPY FLX DX W/COLLJ SPEC WHEN PFRMD 09/23/2020 EGD TRANSORAL BIOPSY SINGLE/MULTIPLE 12/19/2008 Gastritis ESOPHAGOGASTRODUODENOSCOPY TRANSORAL DIAGNOSTIC 09/23/2020 LAPS ABD PRTM&OMENTUM DX W/WO SPEC BR/WA SPX Laparoscopy for endometriosis LAPS ABD PRTM&OMENTUM DX W/WO SPEC BR/WA SPX Laparoscopy for endometriosis REM LESION FACE,EAR,EYEL <5MM 06/30/2006 EXCISION LESION NASAL BRIDGE REM LESION FACE,EAR,EYEL <5MM 06/30/2006 LEFT INNER CANTHUS TOTAL ABDOMINAL HYSTERECT W/WO RMVL TUBE OVARY 2004 Hysterectomy for endometriosis, GABRIEL and BSO Social History Tobacco Use Smoking status: Never Smokeless tobacco: Never Vaping Use Vaping Use: Never used Substance Use Topics Alcohol use: Yes Comment: OCCASIONALLY Drug use: No ACTIVE PROBLEM LIST Allergic Rhinitis Due to Other Allergen Adjustment Disorder With Depressed Mood Temporomandibular Joint Sounds On Opening and/Or Closing The Jaw Irritable Bowel Syndrome Internal Hemorrhoids Without Mention of Complication Eczematous Dermatitis Other Psoriasis Lichenification and Lichen Simplex Chronicus H/O Total Hysterectomy With Removal of Both Tubes and Ovaries Pain in Joint, Lower Leg Myopia, Bilateral Tear of Medial Meniscus of Knee Joint Gastroesophageal Reflux Disease Without Esophagitis Ponv (Postoperative Nausea and Vomiting) Mild Intermittent Asthma Without Complication Acute Pain of Right Shoulder Snapping Scapula Syndrome of Right Shoulder Recurrent Major Depressive Disorder, in Partial Remission (Hcc) Current Outpatient Medications Medication Sig Dispense Refill clobetasol (TEMOVATE) 0.05 % ointment Apply selectively to spots or lesions of eczematous and psoriasiform dermatitis of elbows and lower legs: once to twice per day for up to 2-4 weeks or less as needed until clear and then try to stop or taper off to a bland emollient cream such as CeraVe cream (or Cetaphil cream) as able. AVOID deep fold areas, face, eyes, and eyelids with the Clobetasol. 60 g 2 buPROPion XL (WELLBUTRIN XL) 150 mg 24 hr tablet Take 1 tablet by mouth once daily. To equal 450mg daily 90 tablet 0 buPROPion XL (WELLBUTRIN XL) 300 mg 24 hr tablet Take 1 tablet by mouth once daily. 90 tablet 0 escitalopram oxalate (LEXAPRO) 10 mg tablet Take 1 tablet by mouth once daily. 90 tablet 0 estradiol (ESTRING) 2 mg (7.5 mcg /24 hour) vaginal ring INSERT 1 RING VAGINALLY DIRECTED EVERY 3 MONTHS 1 Each 4 omeprazole (PRILOSEC) 20 mg capsule Take 1 capsule by mouth once daily. 90 capsule 3 ondansetron (ZOFRAN) 4 mg tablet Take 4 mg by mouth every 8 hours as needed for nausea/vomiting. albuterol HFA (PROVENTIL HFA, VENTOLIN HFA) 90 mcg/actuation inhaler Inhale 2 Puffs as instructed every 4 hours as needed (for cough, wheezing, chest tightness or shortness of breath. Use with spacer. ). 18 g 3 cyclobenzaprine (FLEXERIL) 10 mg tablet Take 1 tablet by mouth three times daily as needed for Muscle Spasm. 30 tablet 5 promethazine (PHENERGAN) 25 mg tablet Take 1/2 - 1 tablet by mouth every 4 hours as needed for nausea 45 tablet 1 multivit-min/ferrous fumarate (MULTI VITAMIN ORAL) Take by mouth. nystatin (MYCOSTATIN) powder Apply 1 application to affected area four times daily. 15 g 0 diphenhydramine HCl (BENADRYL ORAL) Take by mouth as directed. acetaminophen (TYLENOL) 325 mg tablet Take 650 mg by mouth every 6 hours as needed. LORazepam (ATIVAN) 0.5 mg tab Take 1 tablet by mouth twice daily as needed. 45 tablet 0 fluticasone 50 mcg/actuation nasal spray Use 2 Sprays in each nostril once daily. Rinse mouth after use. 3 Bottle 3 fexofenadine (TELLY) 180 mg tablet Take 180 mg by mouth once daily. Cholecalciferol, Vitamin D3, 25 mcg (1,000 unit) cap Take 1,000 Units by mouth once daily. No current facility-administered medications for this visit. HEPATITIS B(1 of 3 - 3-dose series) Never done PNEUMOCOCCAL(1 - PCV) Never done SHINGRIX VACCINE(1 of 2) Never done COVID-19 VACCINE(3 - Booster for Moderna series) due on 05/18/2021 INFLUENZA(1) due on 12/11/2021 REVIEW OF SYMPTOMS: General: +fatigue, + weight gain, - fevers/ chills. Energy Level: 06/13/09. Exercise none. Sleep: hours: 9p-4-5a. Lot of hot flashes and night sweats. Diet: nothing that I should be doing Tobacco use: mahesh. Caffeine use: 4 cups coffee, tea, soda. ETOH use: wine 1 bottle q2-3 weeks. Marijuana use: none. Illicit drug use: none. Eyes: denies change in vision, glaucoma. +cataracts bilaterally. Wears bifocals glasses/contacts. Last eye exam: 3 months. EENT: Year round allergies: dust mold, tree, grass: takes flonase and telly OTC. Tonsil stones. denies recurrent sinus infection, unusual nasal drainage, hoarsemess, sore throat, or recurrent sore in mouth or tongue. Cardiovascular: twinges. denies chest pain , SOB, palpitation, irregular or racing heart beats, orthopnea, leg swelling, history of rheumatic fever or prior heart conditions Respiratory: denies unusual cough, SOB, wheezing, history of recurrent bronchitis, pneumonia or tuberculosis. Denies day time drowsiness. +Snoring. No evidence of sleep apnea. GI: + reflux, heartburn better on omeprazole. Phenergan 1/4 tab every few months for nausea. denies difficulty swallowing, nausea, vomiting, change in appetite. No change in bowel habits. + constipation improved with benefiber. Occasional proctalgia / IBS. Denies diarrhea, rectal bleeding or hemorrhoids, incontinence. No history of GERD, PUD, jaundice/hepatitis, GB disease, diverticulosis, colorectal cancer, hernias. EGD, colonoscopy Kidney/Bladder: Denies frequency, burning. Nocturia occasional, + stress incontinence occasional stress incontinence. No history of kidney stones, recurrent UTI or kidney infection. Skin: denies unusual rashes. No history of skin cancer, bleeding/changing moles, or unusual skin lesions. Neurologic: frequent HAs between sinus/ stress. No significant change in vision, hearing or smell, tremors, unusual weakness, loss of sensation, or difficulty with balance or gait. No history of epilepsy/convulsions, migraine, head/spinal injuries, or stroke/TIA. Occaoinal numbness in right hip toes if stands too long. Psychiatric: see HPI Endocrine: denies unusual thirst, hunger, excessive urination, change in skin or hair texture, emotional lability. No history of thryoid, pituitary or hormonal problems. Hematologic: denies unusual bleeding, bruising, or history of anemia or blood transfusion. Denies hx blood clots. Infections: denies risk factors for HIV, hepatitis or history of unusual infection. Immunizations are up to date. Musculoskeletal: leftknee orberto curran[ain , swelling. denies unusual stiffness, muscles aches, joint pain, or swelling. Denies recurrent sprain or disruption of joints, debilitating arthritis, gout, or other musculoskeletal disease. Scoliosis, rosales/ aches. Hx back injury, spinal stenosis, radiculopathy. EXAM: BP 128/70 Pulse 91 Resp 16 SpO2 97% Pleasant obese adult woman in no acute distress. Alert and oriented all spheres. Normal affect and cognition. Speech normal. No deficits to learning or comprehension. Skin warm, dry, pink to lips and nailbeds. Normal turgor. Respirations regular and unlabored. HEENT: NCAT. No scleral icterus or conjunctival injection. TM's clear. Nose and oropharynx free from injection or lesion. Oral membranes moist and pink. No cervical lymph nodes. Thyroid non-tender, no masses, or enlargement. Carotids pulses 2+/4+ without bruits. No JVD with HOB at 30 degrees. Chest is normal shape. Lungs are clear to all greer with good air exchange through out. HRRR without murmur or gallop. No lifts, heaves, or rubs. Abdomen: active bowel sounds throughout, soft, nontender, no masses or organomegaly. No CVAT. Extrem: no clubbing, cyanosis, edema. Distal pulses 2+/4, prompt capillary refill. Left knee with mild infrapatellar effusion, limited ROM flex 90 degrees Gait and balance normal. Sensation grossly intact. Negative findings: speech normal, mental status intact, cranial nerves 2-12 intact, muscle tone normal, DTRs 2/4+ and symmetric ASSESSMENT/PLAN: 1. Well adult exam - ICD9: V70.0, ICD10: Z00.00 (primary diagnosis) - Counseled on healthy diet and regular exercise - Calcium intake with supplements or by diet of 1000 mg/day for under 50, [id number] mg/day for 50+ - Discussed need and benefit for weight loss. No weight on file for this encounter. - Depression screening tool completed and reviewed with patient. Based on score and interview, patient is already diagnosed with depression and recommended starting medication. - Patient was counseled [id number] by myself (the billing provider) for the following immunizations and vaccine components, including side effects: Pneumococcal and Shingrix. Patient consents for immunization and understands risks and benefits. A VIS sheet on each immunization was given to the patient. - Follow up for annual exam in one year 2. Adjustment disorder with depressed mood - ICD9: 309.0, ICD10: F43.21 - CBC - COMP METABOLIC PANEL 3. Recurrent major depressive disorder, in partial remission (HCC) - ICD9: 296.35, ICD10: F33.41 Discussed number of options. Wean off celexa. Wellbutrin already stoppedStart desvenlafaxine Had some issues with venlafaxine and nausea- will monitor. Recheck 4 weeks. - DESVENLAFAXINE SUCCINATE ER 25 MG TABLET,EXTENDED RELEASE 24 HR - CBC - COMP METABOLIC PANEL 4. Obesity, Class II, BMI 35-39.9 - ICD9: 278.00, ICD10: E66.9 Weight increasing - Behavioral intervention and - Pharmacological intervention 5. Need for vaccination - ICD9: V05.9, ICD10: Z23 - PNEUMOCOCCAL IMMUNIZATION PPSV 23 - ZOSTER VACC RECOMBINANT,IM Sivakumar Matamoros PA-C documented in this encounter [facility] 12-03-2021 Miscellaneous Notes Pt reports needing refill of the clobetasol. Script sent. documented in this encounter [facility] 09-19-2021 Miscellaneous Notes Pt wanting to switch from her oral HRT, to the vaginal ring. Pt is having extreme hot flashes and wanting to try something different to try to obtain relief. Christal Braga LPN documented in this encounter [facility] 09-12-2021 History of Present illness Narrative Episode Visit Count: 5 Therapist That Will Oversee The Plan Of Care: Crow Elliott Start of Care Date: 08/13/21 Onset Date: 07/14/21 REHABILITATION AND SPORTS THERAPY PHYSICAL THERAPY PROGRESS REPORT PLAN OF CARE UPDATE: Assessment: Doris Grace demonstrates moderate improvement in heavy exertion, lifting, physical activities, working, sleeping, reaching behind back, reaching overhead and use hand with arm at shoulder level. She has progressed toward goals. Patient continues to present with impairments in overall function, strength and tissue tenderness that interfere with . Current prognosis is Good due to: current objective clinical presentation;good overall health status;positive past response to therapy;within-session changes;good support system/ coping skills . She will benefit from continued skilled therapy services to meet the updated goals for this plan of care as noted below. Goals updated on 09/12/2021. Goals for Episode of Care: created on 08/13/21 through 10/13/21 [place] in home exercise program. Met Patient will decrease pain rating by 2 points to meet minimal clinical important difference for numeric pain rating scale. Partially met Patient will increase active ROM of R shoulder to = L to allow pt to to improve performance of ADLs. Progressing towards Patient will demonstrate increase in R shoulder strength to 5/5 during manual muscle testing in order to improve function for basic self-care tasks, home management tasks, leisure / recreation skills, light functional tasks, moderate to heavy functional tasks, prior functional tasks and work tasks. Progressing towards Perform reaching, lifting, and work tasks with decreased report of symptoms/pain in 4-6 weeks. Partially met Perform sleeping without pain. Not met Planned Interventions, Frequency, and Duration: 1 visit, 6 weeks Total Number of Visits Planned: 1 Patient to be seen for Therapeutic exercise (12896);Neuromuscular re-education (31446);Manual therapy (03955);Therapeutic activities (55526);Self-fpc management (20920) PLAN FOR NEXT VISIT: [place] SUBJECTIVE: Patient Reason for Visit: Pt doing better voerall, but still cannot lie on that shoulder sleeping, or throw the ball for her dog overhand. ADLs and works tasks are all going well. Pain: Pain Pain Level: 1 Pain Location: Shoulder - Right Description: Sore Frequency: Intermittent PROMIS Scales Higher is Better 09/27/2015 06/29/2020 08/21/2021 Phys Func - Score - - 41 (mild dysfunction) Phys Func - Percentile - - 18 % Social Roles - Score - - 50 (within normal limits) Social Role - Percentile - - 50 % GH Physical - Score - 42.3 - GH Physical - Percentile 7 % 22 % - GH Mental - Score - 48.3 - GH Mental - Percentile 34 % 43 % - T-scores: mean of general population = 50. 5 points is clinically meaningfully difference Percentiles provide an indication of how the patient's score ranks in relation to the general population. Higher percentile rankings indicate better function/quality of life. 50th percentile is the average of the general population and indicates half of respondents had a worse score. Lower is Better 08/21/2021 Fatigue - Score 59 (mild) Fatigue - Percentile 18 % T-scores: mean of general population = 50. 5 points is clinically meaningfully difference Percentiles provide an indication of how the patient's score ranks in relation to the general population. Higher percentile rankings indicate better function/quality of life. 50th percentile is the average of the general population and indicates half of respondents had a worse score. OBJECTIVE MEASURES WITH LEVEL OF FUNCTION: UE AROM R Shoulder Flex: 160 Degrees R Shoulder ABduction: 132 Degrees R Shoulder Internal Rotation (Functional): L1 R Shoulder External Rotation (Functional): T2 UE and Cervical Strength R UE Strength: 4/5 grossly Special Tests - Shoulder Biceps Load: Right Negative Speed's: Right Negative Shoulder Special Tests Comments: Positive belly press and lift off test for subscapularis TREATMENT: Therapeutic Exercise: 1: SL ER 2# 2x15 2: Shoulder pulleys into flexion/scaption x20 3: GTB IR 2x10 4: GTB ER 2x10 5: 1# full can 2x10 6: recheck Skilled Intervention: Patient was educated in proper exercise technique and purpose for exercises. Skilled judgment was provided in selection of appropriate interventions. Correct performance of therapeutic exercises was facilitated with verbal, visual and tactile cuing. Billing Therapeutic Exercise Treatment Minutes: 30 Total Treatment Time Minutes (timed/untimed): 30 Crow Elliott PT documented in this encounter [facility] 09-04-2021 History of Present illness Narrative Episode Visit Count: 4 Therapist That Will Oversee The Plan Of Care: Crow Elliott Start of Care Date: 08/13/21 Onset Date: 07/14/21 REHABILITATION AND SPORTS THERAPY PHYSICAL THERAPY TREATMENT NOTE ASSESSMENT: Doris Grace tolerated the session with fatigue and no issues. She demonstrated improvements in shoulder pain and ADLs. The patient will continue to benefit from ongoing skilled physical therapy to progress toward set goals and for reassessment by supervising therapist. PLAN FOR NEXT VISIT: [place] SUBJECTIVE: Patient Reason for Visit: Pt again doing better. Heavy exertion can still cause pain, as well as lying on the right side at night. ut most ADLs feel good Pain: Pain Pain Level: 1 Pain Location: Shoulder - Right Description: Sore Frequency: Intermittent OBJECTIVE MEASURES WITH LEVEL OF FUNCTION: TREATMENT: Therapeutic Exercise: 1: *SL ER 2# 2x15 2: Shoulder pulleys into flexion/scaption x20 3: GTB IR 2x10 4: GTB ER 2x10 5: 1# full can 2x10 6: *Wall slides 2x10 7: *Wax on, wax off 2x10 each way Skilled Intervention: Patient was educated in proper exercise technique and purpose for exercises. Skilled judgment was provided in selection of appropriate interventions. Provided written instruction for home exercise program to facilitate proper performance and compliance. Correct performance of therapeutic exercises was facilitated with verbal, visual and tactile cuing. Patient education as noted. Manual Therapy: 1: STM and TrPr to R uper trap, levator, and triceps with push to tolerance Skilled Intervention: Manual skills to improve joint mobility, ROM, and decrease pain. Utilized anatomy knowledge of the therapist, and assessment of patient's response to intervention. Billing Therapeutic Exercise Treatment Minutes: 25 Manual TherapyTreatment Minutes: 15 Total Treatment Time Minutes (timed/untimed): 40 Crow Elliott PT documented in this encounter [facility] 08-22-2021 History of Present illness Narrative Episode Visit Count: 2 Therapist That Will Oversee The Plan Of Care: Crow Elliott Start of Care Date: 08/13/21 Onset Date: 07/14/21 Patient Identified by Name and Date of : Yes REHABILITATION AND SPORTS THERAPY PHYSICAL THERAPY TREATMENT NOTE ASSESSMENT: Doris Grace tolerated the session with no issues. She demonstrated difficulty with exercises at home with increase pain. Education today on AAROM with stretch only and not to push into pain, decreased resistive strengthening external rotation/IR with stepping closer to the anchor and stopped Full can exercises due to pain. No pain with exercises in therapy today with following education on avoidance of increasing pain.. The patient will continue to benefit from ongoing skilled physical therapy to progress toward set goals. PLAN FOR NEXT VISIT: Progress per patient tolerance SUBJECTIVE: Patient Reason for Visit: Patient reports the right shoulder is feeling pretty good today. She reports no using her arm so much today.She reports green band exercises can cause increase sharp pain. Pain: Pain Pain Level: 0 Pain Location: Shoulder - Right Frequency: Intermittent Post Treatment Pain Post Treatment Pain Level: No Change Post Treatment Pain Location: Shoulder - Right Post Treatment Symptoms: feels tight with no increase in pain. OBJECTIVE MEASURES WITH LEVEL OF FUNCTION: Stopped full can strengthening right shoulder due to increase pain. TREATMENT: Therapeutic Exercise: 1: G Tband IR 3x10 (Education to decrease tightness of pull as pain was sharp at home and no pain in therapy today with less resistance.) 2: G Tband ER 3x10 (Education to decrease tightness of pull as pain was sharp at home and no pain in therapy today with less resistance.) 3: *Standing scapular retraction 2x10 (Education to do 3-5 times throughout the day.) 4: Shoulder pulleys into flexion/scaption 3x10 (Education to stretch only and not to the point of pain) 5: Education to stop full can exercises at current time due to pain. 6: *Tabletop flexion and scaption 2x10 (education on doing this during her work day in pain free range.) Skilled Intervention: Patient was educated in proper exercise technique and purpose for exercises. Reviewed and educated patient on additions/changes for home exercise program as above (*). Skilled judgment was provided in selection of appropriate interventions. Provided written instruction for home exercise program to facilitate proper performance and compliance. Correct performance of therapeutic exercises was facilitated with verbal and visual cuing. Patient education as noted. 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 Pruritus 09/29/2011 08/15/2015 Excoriation 09/29/2011 08/15/2015 Xerosis cutis 09/29/2011 08/15/2015 Adult attention deficit disorder 02/05/2010 05/31/2012 Lumbar disc narrowing 04/16/20092012 Overview: L5-S1 per x-ray 12/2007 -- right-sided sciatica Abdominal pain, epigastric 12/19/2008 0 05/31/2012 Esophagitis, unspecified 12/19/200808/2015 Old disruption of anterior cruciate ligament 5 05/31/2012 Superficial injury of hip, t high, leg, and ankle 05/31/2012 Overview: ACL/MCL PARTIALLY TORN Abdominal pain, right lower quadrant 05/31/2012 documented as of this encounter (statuses as of 02/14/2023) [facility] History of Past illness Narrative* Problem Noted Date Diagnosed Date Resolved Date Acute pain of right shoulder 08/13/2021 02/08/2023 Snapping scapula syndrome of right shoulder 08/13/2021 02/08/2023 PONV (postoperative nausea and vomiting) 03/19/2017 02/08/2023 Episcleritis of left eye 10/22/2015 Pain in joint, lower leg 11/01/2014 Counseling and coordination of care 08/23/2014 12/20/2014 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 Pruritus 09/29/2011 08/15/2015 Excoriation 09/29/2011 08/15/2015 Xerosis cutis 09/29/2011 08/15/2015 Adult attention deficit disorder 02/05/2010 05/31/2012 Lumbar disc narrowing 04/16/20092012 Overview: L5-S1 per x-ray 12/2007 -- right-sided sciatica Abdominal pain, epigastric 12/19/2008 0 05/31/2012 Esophagitis, unspecified 12/19/200808/2015 Old disruption of anterior cruciate ligament 5 05/31/2012 Superficial injury of hip, t high, leg, and ankle 05/31/2012 Overview: ACL/MCL PARTIALLY TORN Abdominal pain, right lower quadrant 05/31/2012 documented as of this encounter (statuses as of 02/14/2023) [facility] History of Past illness Narrative* Problem Noted Date Diagnosed Date Resolved Date Acute pain of right shoulder 08/13/2021 02/08/2023 Snapping scapula syndrome of right shoulder 08/13/2021 02/08/2023 PONV (postoperative nausea and vomiting) 03/19/2017 02/08/2023 Episcleritis of left eye 10/22/2015 Pain in joint, lower leg 11/01/2014 Counseling and coordination of care 08/23/2014 12/20/2014 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 Pruritus 09/29/2011 08/15/2015 Excoriation 09/29/2011 08/15/2015 Xerosis cutis 09/29/2011 08/15/2015 Adult attention deficit disorder 02/05/2010 05/31/2012 Lumbar disc narrowing 04/16/20092012 Overview: L5-S1 per x-ray 12/2007 -- right-sided sciatica Abdominal pain, epigastric 12/19/2008 0 05/31/2012 Esophagitis, unspecified 12/19/200808/2015 Old disruption of anterior cruciate ligament 5 05/31/2012 Superficial injury of hip, t high, leg, and ankle 05/31/2012 Overview: ACL/MCL PARTIALLY TORN Abdominal pain, right lower quadrant 05/31/2012 documented as of this encounter (statuses as of 02/14/2023) [facility] History of Past illness Narrative* Problem Noted Date Diagnosed Date Resolved Date Acute pain of right shoulder 08/13/2021 02/08/2023 Snapping scapula syndrome of right shoulder 08/13/2021 02/08/2023 PONV (postoperative nausea and vomiting) 03/19/2017 02/08/2023 Episcleritis of left eye 10/22/2015 Pain in joint, lower leg 11/01/2014 Counseling and coordination of care 08/23/2014 12/20/2014 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 Pruritus 09/29/2011 08/15/2015 Excoriation 09/29/2011 08/15/2015 Xerosis cutis 09/29/2011 08/15/2015 Adult attention deficit disorder 02/05/2010 05/31/2012 Lumbar disc narrowing 04/16/20092012 Overview: L5-S1 per x-ray 12/2007 -- right-sided sciatica Abdominal pain, epigastric 12/19/2008 0 05/31/2012 Esophagitis, unspecified 12/19/200808/2015 Old disruption of anterior cruciate ligament 5 05/31/2012 Superficial injury of hip, t high, leg, and ankle 05/31/2012 Overview: ACL/MCL PARTIALLY TORN Abdominal pain, right lower quadrant 05/31/2012 documented as of this encounter (statuses as of 02/23/2023) [facility] History of Past illness Narrative* Problem Noted Date Diagnosed Date Resolved Date Acute pain of right shoulder 08/13/2021 02/08/2023 Snapping scapula syndrome of right shoulder 08/13/2021 02/08/2023 PONV (postoperative nausea and vomiting) 03/19/2017 02/08/2023 Episcleritis of left eye 10/22/2015 Pain in joint, lower leg 11/01/2014 Counseling and coordination of care 08/23/2014 12/20/2014 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 Pruritus 09/29/2011 08/15/2015 Excoriation 09/29/2011 08/15/2015 Xerosis cutis 09/29/2011 08/15/2015 Adult attention deficit disorder 02/05/2010 05/31/2012 Lumbar disc narrowing 04/16/20092012 Overview: L5-S1 per x-ray 12/2007 -- right-sided sciatica Abdominal pain, epigastric 12/19/2008 0 05/31/2012 Esophagitis, unspecified 12/19/200808/2015 Old disruption of anterior cruciate ligament 5 05/31/2012 Superficial injury of hip, t high, leg, and ankle 05/31/2012 Overview: ACL/MCL PARTIALLY TORN Abdominal pain, right lower quadrant 05/31/2012 documented as of this encounter (statuses as of 02/23/2023) [facility] History of Past illness Narrative* Problem Noted Date Diagnosed Date Resolved Date Acute pain of right shoulder 08/13/2021 02/08/2023 Snapping scapula syndrome of right shoulder 08/13/2021 02/08/2023 PONV (postoperative nausea and vomiting) 03/19/2017 02/08/2023 Episcleritis of left eye 10/22/2015 Pain in joint, lower leg 11/01/2014 Counseling and coordination of care 08/23/2014 12/20/2014 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 Pruritus 09/29/2011 08/15/2015 Excoriation 09/29/2011 08/15/2015 Xerosis cutis 09/29/2011 08/15/2015 Adult attention deficit disorder 02/05/2010 05/31/2012 Lumbar disc narrowing 04/16/20092012 Overview: L5-S1 per x-ray 12/2007 -- right-sided sciatica Abdominal pain, epigastric 12/19/2008 0 05/31/2012 Esophagitis, unspecified 12/19/200808/2015 Old disruption of anterior cruciate ligament 5 05/31/2012 Superficial injury of hip, t high, leg, and ankle 05/31/2012 Overview: ACL/MCL PARTIALLY TORN Abdominal pain, right lower quadrant 05/31/2012 documented as of this encounter (statuses as of 03/16/2023) [facility] History of Past illness Narrative* Problem Noted Date Diagnosed Date Resolved Date Acute pain of right shoulder 08/13/2021 02/08/2023 Snapping scapula syndrome of right shoulder 08/13/2021 02/08/2023 PONV (postoperative nausea and vomiting) 03/19/2017 02/08/2023 Episcleritis of left eye 10/22/2015 Pain in joint, lower leg 11/01/2014 Counseling and coordination of care 08/23/2014 12/20/2014 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 Pruritus 09/29/2011 08/15/2015 Excoriation 09/29/2011 08/15/2015 Xerosis cutis 09/29/2011 08/15/2015 Adult attention deficit disorder 02/05/2010 05/31/2012 Lumbar disc narrowing 04/16/20092012 Overview: L5-S1 per x-ray 12/2007 -- right-sided sciatica Abdominal pain, epigastric 12/19/2008 0 05/31/2012 Esophagitis, unspecified 12/19/200808/2015 Old disruption of anterior cruciate ligament 5 05/31/2012 Superficial injury of hip, t high, leg, and ankle 05/31/2012 Overview: ACL/MCL PARTIALLY TORN Abdominal pain, right lower quadrant 05/31/2012 documented as of this encounter (statuses as of 05/14/2023) [facility] History of Past illness Narrative* Problem Noted Date Diagnosed Date Resolved Date Acute pain of right shoulder 08/13/2021 02/08/2023 Snapping scapula syndrome of right shoulder 08/13/2021 02/08/2023 PONV (postoperative nausea and vomiting) 03/19/2017 02/08/2023 Episcleritis of left eye 10/22/2015 Pain in joint, lower leg 11/01/2014 Counseling and coordination of care 08/23/2014 12/20/2014 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 Pruritus 09/29/2011 08/15/2015 Excoriation 09/29/2011 08/15/2015 Xerosis cutis 09/29/2011 08/15/2015 Adult attention deficit disorder 02/05/2010 05/31/2012 Lumbar disc narrowing 04/16/20092012 Overview: L5-S1 per x-ray 12/2007 -- right-sided sciatica Abdominal pain, epigastric 12/19/2008 0 05/31/2012 Esophagitis, unspecified 12/19/200808/2015 Old disruption of anterior cruciate ligament 5 05/31/2012 Superficial injury of hip, t high, leg, and ankle 05/31/2012 Overview: ACL/MCL PARTIALLY TORN Abdominal pain, right lower quadrant 05/31/2012 documented as of this encounter (statuses as of 05/14/2023) [facility] History of Past illness Narrative* Problem Noted Date Diagnosed Date Resolved Date Acute pain of right shoulder 08/13/2021 02/08/2023 Snapping scapula syndrome of right shoulder 08/13/2021 02/08/2023 PONV (postoperative nausea and vomiting) 03/19/2017 02/08/2023 Episcleritis of left eye 10/22/2015 Pain in joint, lower leg 11/01/2014 Counseling and coordination of care 08/23/2014 12/20/2014 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 Pruritus 09/29/2011 08/15/2015 Excoriation 09/29/2011 08/15/2015 Xerosis cutis 09/29/2011 08/15/2015 Adult attention deficit disorder 02/05/2010 05/31/2012 Lumbar disc narrowing 04/16/20092012 Overview: L5-S1 per x-ray 12/2007 -- right-sided sciatica Abdominal pain, epigastric 12/19/2008 0 05/31/2012 Esophagitis, unspecified 12/19/200808/2015 Old disruption of anterior cruciate ligament 5 05/31/2012 Superficial injury of hip, t high, leg, and ankle 05/31/2012 Overview: ACL/MCL PARTIALLY TORN Abdominal pain, right lower quadrant 05/31/2012 documented as of this encounter (statuses as of 05/15/2023) [facility] History of Past illness Narrative* Problem Noted Date Diagnosed Date Resolved Date Acute pain of right shoulder 08/13/2021 02/08/2023 Snapping scapula syndrome of right shoulder 08/13/2021 02/08/2023 PONV (postoperative nausea and vomiting) 03/19/2017 02/08/2023 Episcleritis of left eye 10/22/2015 Pain in joint, lower leg 11/01/2014 Counseling and coordination of care 08/23/2014 12/20/2014 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 Pruritus 09/29/2011 08/15/2015 Excoriation 09/29/2011 08/15/2015 Xerosis cutis 09/29/2011 08/15/2015 Adult attention deficit disorder 02/05/2010 05/31/2012 Lumbar disc narrowing 04/16/20092012 Overview: L5-S1 per x-ray 12/2007 -- right-sided sciatica Abdominal pain, epigastric 12/19/2008 0 05/31/2012 Esophagitis, unspecified 12/19/200808/2015 Old disruption of anterior cruciate ligament 5 05/31/2012 Superficial injury of hip, t high, leg, and ankle 05/31/2012 Overview: ACL/MCL PARTIALLY TORN Abdominal pain, right lower quadrant 05/31/2012 documented as of this encounter (statuses as of 05/17/2023) [facility] History of Past illness Narrative* Problem Noted Date Diagnosed Date Resolved Date Acute pain of right shoulder 08/13/2021 02/08/2023 Snapping scapula syndrome of right shoulder 08/13/2021 02/08/2023 PONV (postoperative nausea and vomiting) 03/19/2017 02/08/2023 Episcleritis of left eye 10/22/2015 Pain in joint, lower leg 11/01/2014 Counseling and coordination of care 08/23/2014 12/20/2014 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 Pruritus 09/29/2011 08/15/2015 Excoriation 09/29/2011 08/15/2015 Xerosis cutis 09/29/2011 08/15/2015 Adult attention deficit disorder 02/05/2010 05/31/2012 Lumbar disc narrowing 04/16/20092012 Overview: L5-S1 per x-ray 12/2007 -- right-sided sciatica Abdominal pain, epigastric 12/19/2008 0 05/31/2012 Esophagitis, unspecified 12/19/200808/2015 Old disruption of anterior cruciate ligament 5 05/31/2012 Superficial injury of hip, t high, leg, and ankle 05/31/2012 Overview: ACL/MCL PARTIALLY TORN Abdominal pain, right lower quadrant 05/31/2012 documented as of this encounter (statuses as of 05/17/2023) [facility] History of Past illness Narrative* Problem Noted Date Diagnosed Date Resolved Date Acute pain of right shoulder 08/13/2021 02/08/2023 Snapping scapula syndrome of right shoulder 08/13/2021 02/08/2023 PONV (postoperative nausea and vomiting) 03/19/2017 02/08/2023 Episcleritis of left eye 10/22/2015 Pain in joint, lower leg 11/01/2014 Counseling and coordination of care 08/23/2014 12/20/2014 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 Pruritus 09/29/2011 08/15/2015 Excoriation 09/29/2011 08/15/2015 Xerosis cutis 09/29/2011 08/15/2015 Adult attention deficit disorder 02/05/2010 05/31/2012 Lumbar disc narrowing 04/16/20092012 Overview: L5-S1 per x-ray 12/2007 -- right-sided sciatica Abdominal pain, epigastric 12/19/2008 0 05/31/2012 Esophagitis, unspecified 12/19/200808/2015 Old disruption of anterior cruciate ligament 5 05/31/2012 Superficial injury of hip, t high, leg, and ankle 05/31/2012 Overview: ACL/MCL PARTIALLY TORN Abdominal pain, right lower quadrant 05/31/2012 documented as of this encounter (statuses as of 05/17/2023) [facility] History of Past illness Narrative* Problem Noted Date Diagnosed Date Resolved Date Acute pain of right shoulder 08/13/2021 02/08/2023 Snapping scapula syndrome of right shoulder 08/13/2021 02/08/2023 PONV (postoperative nausea and vomiting) 03/19/2017 02/08/2023 Episcleritis of left eye 10/22/2015 Pain in joint, lower leg 11/01/2014 Counseling and coordination of care 08/23/2014 12/20/2014 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 Pruritus 09/29/2011 08/15/2015 Excoriation 09/29/2011 08/15/2015 Xerosis cutis 09/29/2011 08/15/2015 Adult attention deficit disorder 02/05/2010 05/31/2012 Lumbar disc narrowing 04/16/20092012 Overview: L5-S1 per x-ray 12/2007 -- right-sided sciatica Abdominal pain, epigastric 12/19/2008 0 05/31/2012 Esophagitis, unspecified 12/19/200808/2015 Old disruption of anterior cruciate ligament 5 05/31/2012 Superficial injury of hip, t high, leg, and ankle 05/31/2012 Overview: ACL/MCL PARTIALLY TORN Abdominal pain, right lower quadrant 05/31/2012 documented as of this encounter (statuses as of 05/19/2023) [facility]05-04-[facility]22 History of Past illness Narrative* Problem Noted Date Diagnosed Date Resolved Date Acute pain of right shoulder 08/13/2021 02/08/2023 Snapping scapula syndrome of right shoulder 08/13/2021 02/08/2023 PONV (postoperative nausea and vomiting) 03/19/2017 02/08/2023 Episcleritis of left eye 10/22/2015 Pain in joint, lower leg 11/01/2014 Counseling and coordination of care 08/23/2014 12/20/2014 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 Pruritus 09/29/2011 08/15/2015 Excoriation 09/29/2011 08/15/2015 Xerosis cutis 09/29/2011 08/15/2015 Adult attention deficit disorder 02/05/2010 05/31/2012 Lumbar disc narrowing 04/16/20092012 Overview: L5-S1 per x-ray 12/2007 -- right-sided sciatica Abdominal pain, epigastric 12/19/2008 0 05/31/2012 Esophagitis, unspecified 12/19/200808/2015 Old disruption of anterior cruciate ligament 5 05/31/2012 Superficial injury of hip, t high, leg, and ankle 05/31/2012 Overview: ACL/MCL PARTIALLY TORN Abdominal pain, right lower quadrant 05/31/2012 documented as of this encounter (statuses as of 05/21/2023) [facility]05-[facility]22 History of Past illness Narrative* Problem Noted Date Diagnosed Date Resolved Date Acute pain of right shoulder 08/13/2021 02/08/2023 Snapping scapula syndrome of right shoulder 08/13/2021 02/08/2023 PONV (postoperative nausea and vomiting) 03/19/2017 02/08/2023 Episcleritis of left eye 10/22/2015 Pain in joint, lower leg 11/01/2014 Counseling and coordination of care 08/23/2014 12/20/2014 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 Pruritus 09/29/2011 08/15/2015 Excoriation 09/29/2011 08/15/2015 Xerosis cutis 09/29/2011 08/15/2015 Adult attention deficit disorder 02/05/2010 05/31/2012 Lumbar disc narrowing 04/16/20092012 Overview: L5-S1 per x-ray 12/2007 -- right-sided sciatica Abdominal pain, epigastric 12/19/2008 0 05/31/2012 Esophagitis, unspecified 12/19/200808/2015 Old disruption of anterior cruciate ligament 5 05/31/2012 Superficial injury of hip, t high, leg, and ankle 05/31/2012 Overview: ACL/MCL PARTIALLY TORN Abdominal pain, right lower quadrant 05/31/2012 documented as of this encounter (statuses as of 05/21/2023) [facility]05-[facility] History of Past illness Narrative* Problem Noted Date Diagnosed Date Resolved Date Acute pain of right shoulder 08/13/2021 02/08/2023 Snapping scapula syndrome of right shoulder 08/13/2021 02/08/2023 PONV (postoperative nausea and vomiting) 03/19/2017 02/08/2023 Episcleritis of left eye 10/22/2015 Pain in joint, lower leg 11/01/2014 Counseling and coordination of care 08/23/2014 12/20/2014 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 Pruritus 09/29/2011 08/15/2015 Excoriation 09/29/2011 08/15/2015 Xerosis cutis 09/29/2011 08/15/2015 Adult attention deficit disorder 02/05/2010 05/31/2012 Lumbar disc narrowing 04/16/20092012 Overview: L5-S1 per x-ray 12/2007 -- right-sided sciatica Abdominal pain, epigastric 12/19/2008 0 05/31/2012 Esophagitis, unspecified 12/19/200808/2015 Old disruption of anterior cruciate ligament 5 05/31/2012 Superficial injury of hip, t high, leg, and ankle 05/31/2012 Overview: ACL/MCL PARTIALLY TORN Abdominal pain, right lower quadrant 05/31/2012 documented as of this encounter (statuses as of 05/24/2023) [facility] History of Past illness Narrative* Problem Noted Date Diagnosed Date Resolved Date Acute pain of right shoulder 08/13/2021 02/08/2023 Snapping scapula syndrome of right shoulder 08/13/2021 02/08/2023 PONV (postoperative nausea and vomiting) 03/19/2017 02/08/2023 Episcleritis of left eye 10/22/2015 Pain in joint, lower leg 11/01/2014 Counseling and coordination of care 08/23/2014 12/20/2014 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 Pruritus 09/29/2011 08/15/2015 Excoriation 09/29/2011 08/15/2015 Xerosis cutis 09/29/2011 08/15/2015 Adult attention deficit disorder 02/05/2010 05/31/2012 Lumbar disc narrowing 04/16/20092012 Overview: L5-S1 per x-ray 12/2007 -- right-sided sciatica Abdominal pain, epigastric 12/19/2008 0 05/31/2012 Esophagitis, unspecified 12/19/200808/2015 Old disruption of anterior cruciate ligament 5 05/31/2012 Superficial injury of hip, t high, leg, and ankle 05/31/2012 Overview: ACL/MCL PARTIALLY TORN Abdominal pain, right lower quadrant 05/31/2012 documented as of this encounter (statuses as of 05/25/2023) [facility] History of Past illness Narrative* Problem Noted Date Diagnosed Date Resolved Date Acute pain of right shoulder 08/13/2021 02/08/2023 Snapping scapula syndrome of right shoulder 08/13/2021 02/08/2023 PONV (postoperative nausea and vomiting) 03/19/2017 02/08/2023 Episcleritis of left eye 10/22/2015 Pain in joint, lower leg 11/01/2014 Counseling and coordination of care 08/23/2014 12/20/2014 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 Pruritus 09/29/2011 08/15/2015 Excoriation 09/29/2011 08/15/2015 Xerosis cutis 09/29/2011 08/15/2015 Adult attention deficit disorder 02/05/2010 05/31/2012 Lumbar disc narrowing 04/16/20092012 Overview: L5-S1 per x-ray 12/2007 -- right-sided sciatica Abdominal pain, epigastric 12/19/2008 0 05/31/2012 Esophagitis, unspecified 12/19/200808/2015 Old disruption of anterior cruciate ligament 5 05/31/2012 Superficial injury of hip, t high, leg, and ankle 05/31/2012 Overview: ACL/MCL PARTIALLY TORN Abdominal pain, right lower quadrant 05/31/2012 documented as of this encounter (statuses as of 05/26/2023) [facility] History of Past illness Narrative* Problem Noted Date Diagnosed Date Resolved Date Acute pain of right shoulder 08/13/2021 02/08/2023 Snapping scapula syndrome of right shoulder 08/13/2021 02/08/2023 PONV (postoperative nausea and vomiting) 03/19/2017 02/08/2023 Episcleritis of left eye 10/22/2015 Pain in joint, lower leg 11/01/2014 Counseling and coordination of care 08/23/2014 12/20/2014 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 Pruritus 09/29/2011 08/15/2015 Excoriation 09/29/2011 08/15/2015 Xerosis cutis 09/29/2011 08/15/2015 Adult attention deficit disorder 02/05/2010 05/31/2012 Lumbar disc narrowing 04/16/20092012 Overview: L5-S1 per x-ray 12/2007 -- right-sided sciatica Abdominal pain, epigastric 12/19/2008 0 05/31/2012 Esophagitis, unspecified 12/19/200808/2015 Old disruption of anterior cruciate ligament 5 05/31/2012 Superficial injury of hip, t high, leg, and ankle 05/31/2012 Overview: ACL/MCL PARTIALLY TORN Abdominal pain, right lower quadrant 05/31/2012 documented as of this encounter (statuses as of 05/27/2023) [facility] History of Past illness Narrative* Problem Noted Date Diagnosed Date Resolved Date Acute pain of right shoulder 08/13/2021 02/08/2023 Snapping scapula syndrome of right shoulder 08/13/2021 02/08/2023 PONV (postoperative nausea and vomiting) 03/19/2017 02/08/2023 Episcleritis of left eye 10/22/2015 Pain in joint, lower leg 11/01/2014 Counseling and coordination of care 08/23/2014 12/20/2014 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 Pruritus 09/29/2011 08/15/2015 Excoriation 09/29/2011 08/15/2015 Xerosis cutis 09/29/2011 08/15/2015 Adult attention deficit disorder 02/05/2010 05/31/2012 Lumbar disc narrowing 04/16/20092012 Overview: L5-S1 per x-ray 12/2007 -- right-sided sciatica Abdominal pain, epigastric 12/19/2008 0 05/31/2012 Esophagitis, unspecified 12/19/200808/2015 Old disruption of anterior cruciate ligament 5 05/31/2012 Superficial injury of hip, t high, leg, and ankle 05/31/2012 Overview: ACL/MCL PARTIALLY TORN Abdominal pain, right lower quadrant 05/31/2012 documented as of this encounter (statuses as of 05/31/2023) [facility] History of Past illness Narrative* Problem Noted Date Diagnosed Date Resolved Date Acute pain of right shoulder 08/13/2021 02/08/2023 Snapping scapula syndrome of right shoulder 08/13/2021 02/08/2023 PONV (postoperative nausea and vomiting) 03/19/2017 02/08/2023 Episcleritis of left eye 10/22/2015 Pain in joint, lower leg 11/01/2014 Counseling and coordination of care 08/23/2014 12/20/2014 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 Pruritus 09/29/2011 08/15/2015 Excoriation 09/29/2011 08/15/2015 Xerosis cutis 09/29/2011 08/15/2015 Adult attention deficit disorder 02/05/2010 05/31/2012 Lumbar disc narrowing 04/16/20092012 Overview: L5-S1 per x-ray 12/2007 -- right-sided sciatica Abdominal pain, epigastric 12/19/2008 0 05/31/2012 Esophagitis, unspecified 12/19/200808/2015 Old disruption of anterior cruciate ligament 5 05/31/2012 Superficial injury of hip, t high, leg, and ankle 05/31/2012 Overview: ACL/MCL PARTIALLY TORN Abdominal pain, right lower quadrant 05/31/2012 documented as of this encounter (statuses as of 06/03/2023) [facility] History of Past illness Narrative* Problem Noted Date Diagnosed Date Resolved Date Acute pain of right shoulder 08/13/2021 02/08/2023 Snapping scapula syndrome of right shoulder 08/13/2021 02/08/2023 PONV (postoperative nausea and vomiting) 03/19/2017 02/08/2023 Episcleritis of left eye 10/22/2015 Pain in joint, lower leg 11/01/2014 Counseling and coordination of care 08/23/2014 12/20/2014 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 Pruritus 09/29/2011 08/15/2015 Excoriation 09/29/2011 08/15/2015 Xerosis cutis 09/29/2011 08/15/2015 Adult attention deficit disorder 02/05/2010 05/31/2012 Lumbar disc narrowing 04/16/20092012 Overview: L5-S1 per x-ray 12/2007 -- right-sided sciatica Abdominal pain, epigastric 12/19/2008 0 05/31/2012 Esophagitis, unspecified 12/19/200808/2015 Old disruption of anterior cruciate ligament 5 05/31/2012 Superficial injury of hip, t high, leg, and ankle 05/31/2012 Overview: ACL/MCL PARTIALLY TORN Abdominal pain, right lower quadrant 05/31/2012 documented as of this encounter (statuses as of 06/10/2023) [facility] History of Past illness Narrative* Problem Noted Date Diagnosed Date Resolved Date Acute pain of right shoulder 08/13/2021 02/08/2023 Snapping scapula syndrome of right shoulder 08/13/2021 02/08/2023 PONV (postoperative nausea and vomiting) 03/19/2017 02/08/2023 Episcleritis of left eye 10/22/2015 Pain in joint, lower leg 11/01/2014 Counseling and coordination of care 08/23/2014 12/20/2014 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 Pruritus 09/29/2011 08/15/2015 Excoriation 09/29/2011 08/15/2015 Xerosis cutis 09/29/2011 08/15/2015 Adult attention deficit disorder 02/05/2010 05/31/2012 Lumbar disc narrowing 04/16/20092012 Overview: L5-S1 per x-ray 12/2007 -- right-sided sciatica Abdominal pain, epigastric 12/19/2008 0 05/31/2012 Esophagitis, unspecified 12/19/200808/2015 Old disruption of anterior cruciate ligament 5 05/31/2012 Superficial injury of hip, t high, leg, and ankle 05/31/2012 Overview: ACL/MCL PARTIALLY TORN Abdominal pain, right lower quadrant 05/31/2012 documented as of this encounter (statuses as of 06/14/2023) [facility] History of Past illness Narrative* Problem Noted Date Diagnosed Date Resolved Date Acute pain of right shoulder 08/13/2021 02/08/2023 Snapping scapula syndrome of right shoulder 08/13/2021 02/08/2023 PONV (postoperative nausea and vomiting) 03/19/2017 02/08/2023 Episcleritis of left eye 10/22/2015 Pain in joint, lower leg 11/01/2014 Counseling and coordination of care 08/23/2014 12/20/2014 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 Pruritus 09/29/2011 08/15/2015 Excoriation 09/29/2011 08/15/2015 Xerosis cutis 09/29/2011 08/15/2015 Adult attention deficit disorder 02/05/2010 05/31/2012 Lumbar disc narrowing 04/16/20092012 Overview: L5-S1 per x-ray 12/2007 -- right-sided sciatica Abdominal pain, epigastric 12/19/2008 0 05/31/2012 Esophagitis, unspecified 12/19/200808/2015 Old disruption of anterior cruciate ligament 5 05/31/2012 Superficial injury of hip, t high, leg, and ankle 05/31/2012 Overview: ACL/MCL PARTIALLY TORN Abdominal pain, right lower quadrant 05/31/2012 documented as of this encounter (statuses as of 06/16/2023) [facility] History of Past illness Narrative* Problem Noted Date Diagnosed Date Resolved Date Acute pain of right shoulder 08/13/2021 02/08/2023 Snapping scapula syndrome of right shoulder 08/13/2021 02/08/2023 PONV (postoperative nausea and vomiting) 03/19/2017 02/08/2023 Episcleritis of left eye 10/22/2015 Pain in joint, lower leg 11/01/2014 Counseling and coordination of care 08/23/2014 12/20/2014 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 Pruritus 09/29/2011 08/15/2015 Excoriation 09/29/2011 08/15/2015 Xerosis cutis 09/29/2011 08/15/2015 Adult attention deficit disorder 02/05/2010 05/31/2012 Lumbar disc narrowing 04/16/20092012 Overview: L5-S1 per x-ray 12/2007 -- right-sided sciatica Abdominal pain, epigastric 12/19/2008 0 05/31/2012 Esophagitis, unspecified 12/19/200808/2015 Old disruption of anterior cruciate ligament 5 05/31/2012 Superficial injury of hip, t high, leg, and ankle 05/31/2012 Overview: ACL/MCL PARTIALLY TORN Abdominal pain, right lower quadrant 05/31/2012 documented as of this encounter (statuses as of 06/18/2023) [facility] History of Past illness Narrative* Problem Noted Date Diagnosed Date Resolved Date Acute pain of right shoulder 08/13/2021 02/08/2023 Snapping scapula syndrome of right shoulder 08/13/2021 02/08/2023 PONV (postoperative nausea and vomiting) 03/19/2017 02/08/2023 Episcleritis of left eye 10/22/2015 Pain in joint, lower leg 11/01/2014 Counseling and coordination of care 08/23/2014 12/20/2014 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 Pruritus 09/29/2011 08/15/2015 Excoriation 09/29/2011 08/15/2015 Xerosis cutis 09/29/2011 08/15/2015 Adult attention deficit disorder 02/05/2010 05/31/2012 Lumbar disc narrowing 04/16/20092012 Overview: L5-S1 per x-ray 12/2007 -- right-sided sciatica Abdominal pain, epigastric 12/19/2008 0 05/31/2012 Esophagitis, unspecified 12/19/200808/2015 Old disruption of anterior cruciate ligament 5 05/31/2012 Superficial injury of hip, t high, leg, and ankle 05/31/2012 Overview: ACL/MCL PARTIALLY TORN Abdominal pain, right lower quadrant 05/31/2012 documented as of this encounter (statuses as of 06/21/2023) [facility] History of Past illness Narrative* Problem Noted Date Diagnosed Date Resolved Date Acute pain of right shoulder 08/13/2021 02/08/2023 Snapping scapula syndrome of right shoulder 08/13/2021 02/08/2023 PONV (postoperative nausea and vomiting) 03/19/2017 02/08/2023 Episcleritis of left eye 10/22/2015 Pain in joint, lower leg 11/01/2014 Counseling and coordination of care 08/23/2014 12/20/2014 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 Pruritus 09/29/2011 08/15/2015 Excoriation 09/29/2011 08/15/2015 Xerosis cutis 09/29/2011 08/15/2015 Adult attention deficit disorder 02/05/2010 05/31/2012 Lumbar disc narrowing 04/16/20092012 Overview: L5-S1 per x-ray 12/2007 -- right-sided sciatica Abdominal pain, epigastric 12/19/2008 0 05/31/2012 Esophagitis, unspecified 12/19/200808/2015 Old disruption of anterior cruciate ligament 5 05/31/2012 Superficial injury of hip, t high, leg, and ankle 05/31/2012 Overview: ACL/MCL PARTIALLY TORN Abdominal pain, right lower quadrant 05/31/2012 documented as of this encounter (statuses as of 06/23/2023) [facility] History of Past illness Narrative* Problem Noted Date Diagnosed Date Resolved Date Acute pain of right shoulder 08/13/2021 02/08/2023 Snapping scapula syndrome of right shoulder 08/13/2021 02/08/2023 PONV (postoperative nausea and vomiting) 03/19/2017 02/08/2023 Episcleritis of left eye 10/22/2015 Pain in joint, lower leg 11/01/2014 Counseling and coordination of care 08/23/2014 12/20/2014 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 Pruritus 09/29/2011 08/15/2015 Excoriation 09/29/2011 08/15/2015 Xerosis cutis 09/29/2011 08/15/2015 Adult attention deficit disorder 02/05/2010 05/31/2012 Lumbar disc narrowing 04/16/20092012 Overview: L5-S1 per x-ray 12/2007 -- right-sided sciatica Abdominal pain, epigastric 12/19/2008 0 05/31/2012 Esophagitis, unspecified 12/19/200808/2015 Old disruption of anterior cruciate ligament 5 05/31/2012 Superficial injury of hip, t high, leg, and ankle 05/31/2012 Overview: ACL/MCL PARTIALLY TORN Abdominal pain, right lower quadrant 05/31/2012 documented as of this encounter (statuses as of 06/24/2023) [facility] History of Past illness Narrative* Problem Noted Date Diagnosed Date Resolved Date Acute pain of right shoulder 08/13/2021 02/08/2023 Snapping scapula syndrome of right shoulder 08/13/2021 02/08/2023 PONV (postoperative nausea and vomiting) 03/19/2017 02/08/2023 Episcleritis of left eye 10/22/2015 Pain in joint, lower leg 11/01/2014 Counseling and coordination of care 08/23/2014 12/20/2014 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 Pruritus 09/29/2011 08/15/2015 Excoriation 09/29/2011 08/15/2015 Xerosis cutis 09/29/2011 08/15/2015 Adult attention deficit disorder 02/05/2010 05/31/2012 Lumbar disc narrowing 04/16/20092012 Overview: L5-S1 per x-ray 12/2007 -- right-sided sciatica Abdominal pain, epigastric 12/19/2008 0 05/31/2012 Esophagitis, unspecified 12/19/200808/2015 Old disruption of anterior cruciate ligament 5 05/31/2012 Superficial injury of hip, t high, leg, and ankle 05/31/2012 Overview: ACL/MCL PARTIALLY TORN Abdominal pain, right lower quadrant 05/31/2012 documented as of this encounter (statuses as of 06/28/2023) [facility] History of Past illness Narrative* Problem Noted Date Diagnosed Date Resolved Date Acute pain of right shoulder 08/13/2021 02/08/2023 Snapping scapula syndrome of right shoulder 08/13/2021 02/08/2023 PONV (postoperative nausea and vomiting) 03/19/2017 02/08/2023 Episcleritis of left eye 10/22/2015 Pain in joint, lower leg 11/01/2014 Counseling and coordination of care 08/23/2014 12/20/2014 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 Pruritus 09/29/2011 08/15/2015 Excoriation 09/29/2011 08/15/2015 Xerosis cutis 09/29/2011 08/15/2015 Adult attention deficit disorder 02/05/2010 05/31/2012 Lumbar disc narrowing 04/16/20092012 Overview: L5-S1 per x-ray 12/2007 -- right-sided sciatica Abdominal pain, epigastric 12/19/2008 0 05/31/2012 Esophagitis, unspecified 12/19/200808/2015 Old disruption of anterior cruciate ligament 5 05/31/2012 Superficial injury of hip, t high, leg, and ankle 05/31/2012 Overview: ACL/MCL PARTIALLY TORN Abdominal pain, right lower quadrant 05/31/2012 documented as of this encounter (statuses as of 06/28/2023) [facility] History of Past illness Narrative* Problem Noted Date Diagnosed Date Resolved Date Acute pain of right shoulder 08/13/2021 02/08/2023 Snapping scapula syndrome of right shoulder 08/13/2021 02/08/2023 PONV (postoperative nausea and vomiting) 03/19/2017 02/08/2023 Episcleritis of left eye 10/22/2015 Pain in joint, lower leg 11/01/2014 Counseling and coordination of care 08/23/2014 12/20/2014 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 Pruritus 09/29/2011 08/15/2015 Excoriation 09/29/2011 08/15/2015 Xerosis cutis 09/29/2011 08/15/2015 Adult attention deficit disorder 02/05/2010 05/31/2012 Lumbar disc narrowing 04/16/20092012 Overview: L5-S1 per x-ray 12/2007 -- right-sided sciatica Abdominal pain, epigastric 12/19/2008 0 05/31/2012 Esophagitis, unspecified 12/19/200808/2015 Old disruption of anterior cruciate ligament 5 05/31/2012 Superficial injury of hip, t high, leg, and ankle 05/31/2012 Overview: ACL/MCL PARTIALLY TORN Abdominal pain, right lower quadrant 05/31/2012 documented as of this encounter (statuses as of 07/02/2023) [facility] History of Past illness Narrative* Problem Noted Date Diagnosed Date Resolved Date Acute pain of right shoulder 08/13/2021 02/08/2023 Snapping scapula syndrome of right shoulder 08/13/2021 02/08/2023 PONV (postoperative nausea and vomiting) 03/19/2017 02/08/2023 Episcleritis of left eye 10/22/2015 Pain in joint, lower leg 11/01/2014 Counseling and coordination of care 08/23/2014 12/20/2014 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 Pruritus 09/29/2011 08/15/2015 Excoriation 09/29/2011 08/15/2015 Xerosis cutis 09/29/2011 08/15/2015 Adult attention deficit disorder 02/05/2010 05/31/2012 Lumbar disc narrowing 04/16/20092012 Overview: L5-S1 per x-ray 12/2007 -- right-sided sciatica Abdominal pain, epigastric 12/19/2008 0 05/31/2012 Esophagitis, unspecified 12/19/200808/2015 Old disruption of anterior cruciate ligament 5 05/31/2012 Superficial injury of hip, t high, leg, and ankle 05/31/2012 Overview: ACL/MCL PARTIALLY TORN Abdominal pain, right lower quadrant 05/31/2012 documented as of this encounter (statuses as of 07/06/2023) [facility] History of Past illness Narrative* Problem Noted Date Diagnosed Date Resolved Date Acute pain of right shoulder 08/13/2021 02/08/2023 Snapping scapula syndrome of right shoulder 08/13/2021 02/08/2023 PONV (postoperative nausea and vomiting) 03/19/2017 02/08/2023 Episcleritis of left eye 10/22/2015 Pain in joint, lower leg 11/01/2014 Counseling and coordination of care 08/23/2014 12/20/2014 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 Pruritus 09/29/2011 08/15/2015 Excoriation 09/29/2011 08/15/2015 Xerosis cutis 09/29/2011 08/15/2015 Adult attention deficit disorder 02/05/2010 05/31/2012 Lumbar disc narrowing 04/16/20092012 Overview: L5-S1 per x-ray 12/2007 -- right-sided sciatica Abdominal pain, epigastric 12/19/2008 0 05/31/2012 Esophagitis, unspecified 12/19/200808/2015 Old disruption of anterior cruciate ligament 5 05/31/2012 Superficial injury of hip, t high, leg, and ankle 05/31/2012 Overview: ACL/MCL PARTIALLY TORN Abdominal pain, right lower quadrant 05/31/2012 documented as of this encounter (statuses as of 07/14/2023) [facility] History of Past illness Narrative* Problem Noted Date Diagnosed Date Resolved Date Acute pain of right shoulder 08/13/2021 02/08/2023 Snapping scapula syndrome of right shoulder 08/13/2021 02/08/2023 PONV (postoperative nausea and vomiting) 03/19/2017 02/08/2023 Episcleritis of left eye 10/22/2015 Pain in joint, lower leg 11/01/2014 Counseling and coordination of care 08/23/2014 12/20/2014 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 Pruritus 09/29/2011 08/15/2015 Excoriation 09/29/2011 08/15/2015 Xerosis cutis 09/29/2011 08/15/2015 Adult attention deficit disorder 02/05/2010 05/31/2012 Lumbar disc narrowing 04/16/20092012 Overview: L5-S1 per x-ray 12/2007 -- right-sided sciatica Abdominal pain, epigastric 12/19/2008 0 05/31/2012 Esophagitis, unspecified 12/19/200808/2015 Old disruption of anterior cruciate ligament 5 05/31/2012 Superficial injury of hip, t high, leg, and ankle 05/31/2012 Overview: ACL/MCL PARTIALLY TORN Abdominal pain, right lower quadrant 05/31/2012 documented as of this encounter (statuses as of 07/18/2023) [facility] History of Past illness Narrative* Problem Noted Date Diagnosed Date Resolved Date Acute pain of right shoulder 08/13/2021 02/08/2023 Snapping scapula syndrome of right shoulder 08/13/2021 02/08/2023 PONV (postoperative nausea and vomiting) 03/19/2017 02/08/2023 Episcleritis of left eye 10/22/2015 Pain in joint, lower leg 11/01/2014 Counseling and coordination of care 08/23/2014 12/20/2014 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 Pruritus 09/29/2011 08/15/2015 Excoriation 09/29/2011 08/15/2015 Xerosis cutis 09/29/2011 08/15/2015 Adult attention deficit disorder 02/05/2010 05/31/2012 Lumbar disc narrowing 04/16/20092012 Overview: L5-S1 per x-ray 12/2007 -- right-sided sciatica Abdominal pain, epigastric 12/19/2008 0 05/31/2012 Esophagitis, unspecified 12/19/200808/2015 Old disruption of anterior cruciate ligament 5 05/31/2012 Superficial injury of hip, t high, leg, and ankle 05/31/2012 Overview: ACL/MCL PARTIALLY TORN Abdominal pain, right lower quadrant 05/31/2012 documented as of this encounter (statuses as of 07/23/2023) [facility] History of Past illness Narrative* Problem Noted Date Diagnosed Date Resolved Date Acute pain of right shoulder 08/13/2021 02/08/2023 Snapping scapula syndrome of right shoulder 08/13/2021 02/08/2023 PONV (postoperative nausea and vomiting) 03/19/2017 02/08/2023 Episcleritis of left eye 10/22/2015 Pain in joint, lower leg 11/01/2014 Counseling and coordination of care 08/23/2014 12/20/2014 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 Pruritus 09/29/2011 08/15/2015 Excoriation 09/29/2011 08/15/2015 Xerosis cutis 09/29/2011 08/15/2015 Adult attention deficit disorder 02/05/2010 05/31/2012 Lumbar disc narrowing 04/16/20092012 Overview: L5-S1 per x-ray 12/2007 -- right-sided sciatica Abdominal pain, epigastric 12/19/2008 0 05/31/2012 Esophagitis, unspecified 12/19/200808/2015 Old disruption of anterior cruciate ligament 5 05/31/2012 Superficial injury of hip, t high, leg, and ankle 05/31/2012 Overview: ACL/MCL PARTIALLY TORN Abdominal pain, right lower quadrant 05/31/2012 documented as of this encounter (statuses as of 07/23/2023) [facility] History of Past illness Narrative* Problem Noted Date Diagnosed Date Resolved Date Acute pain of right shoulder 08/13/2021 02/08/2023 Snapping scapula syndrome of right shoulder 08/13/2021 02/08/2023 PONV (postoperative nausea and vomiting) 03/19/2017 02/08/2023 Episcleritis of left eye 10/22/2015 Pain in joint, lower leg 11/01/2014 Counseling and coordination of care 08/23/2014 12/20/2014 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 Pruritus 09/29/2011 08/15/2015 Excoriation 09/29/2011 08/15/2015 Xerosis cutis 09/29/2011 08/15/2015 Adult attention deficit disorder 02/05/2010 05/31/2012 Lumbar disc narrowing 04/16/20092012 Overview: L5-S1 per x-ray 12/2007 -- right-sided sciatica Abdominal pain, epigastric 12/19/2008 0 05/31/2012 Esophagitis, unspecified 12/19/200808/2015 Old disruption of anterior cruciate ligament 5 05/31/2012 Superficial injury of hip, t high, leg, and ankle 05/31/2012 Overview: ACL/MCL PARTIALLY TORN Abdominal pain, right lower quadrant 05/31/2012 documented as of this encounter (statuses as of 07/28/2023) [facility] History of Past illness Narrative* Problem Noted Date Diagnosed Date Resolved Date Acute pain of right shoulder 08/13/2021 02/08/2023 Snapping scapula syndrome of right shoulder 08/13/2021 02/08/2023 PONV (postoperative nausea and vomiting) 03/19/2017 02/08/2023 Episcleritis of left eye 10/22/2015 Pain in joint, lower leg 11/01/2014 Counseling and coordination of care 08/23/2014 12/20/2014 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 Pruritus 09/29/2011 08/15/2015 Excoriation 09/29/2011 08/15/2015 Xerosis cutis 09/29/2011 08/15/2015 Adult attention deficit disorder 02/05/2010 05/31/2012 Lumbar disc narrowing 04/16/20092012 Overview: L5-S1 per x-ray 12/2007 -- right-sided sciatica Abdominal pain, epigastric 12/19/2008 0 05/31/2012 Esophagitis, unspecified 12/19/200808/2015 Old disruption of anterior cruciate ligament 5 05/31/2012 Superficial injury of hip, t high, leg, and ankle 05/31/2012 Overview: ACL/MCL PARTIALLY TORN Abdominal pain, right lower quadrant 05/31/2012 documented as of this encounter (statuses as of 07/30/2023) [facility] History of Past illness Narrative* Problem Noted Date Diagnosed Date Resolved Date Acute pain of right shoulder 08/13/2021 02/08/2023 Snapping scapula syndrome of right shoulder 08/13/2021 02/08/2023 PONV (postoperative nausea and vomiting) 03/19/2017 02/08/2023 Episcleritis of left eye 10/22/2015 Pain in joint, lower leg 11/01/2014 Counseling and coordination of care 08/23/2014 12/20/2014 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 Pruritus 09/29/2011 08/15/2015 Excoriation 09/29/2011 08/15/2015 Xerosis cutis 09/29/2011 08/15/2015 Adult attention deficit disorder 02/05/2010 05/31/2012 Lumbar disc narrowing 04/16/20092012 Overview: L5-S1 per x-ray 12/2007 -- right-sided sciatica Abdominal pain, epigastric 12/19/2008 0 05/31/2012 Esophagitis, unspecified 12/19/200808/2015 Old disruption of anterior cruciate ligament 5 05/31/2012 Superficial injury of hip, t high, leg, and ankle 05/31/2012 Overview: ACL/MCL PARTIALLY TORN Abdominal pain, right lower quadrant 05/31/2012 documented as of this encounter (statuses as of 07/16/2023) [facility] History of Present illness Narrative* Crownatasha Elliott, PT - 08/13/2021 1:29 PM EDT Episode Visit Count: 1 Therapist That Will Oversee The Plan Of Care: Crow Elliott Start of Care Date: 08/13/21 Onset Date: 07/14/21 Patient Identified by Name and Date of : Yes REHABILITATION AND SPORTS THERAPY PHYSICAL THERAPY EVALUATION PLAN OF CARE: Assessment: Doris Grace presents with chief complaint of R shoulder pain that interferes with heavy exertion;lifting;working;sleeping;reaching behind back;reaching overhead;use hand with arm at shoulder level . She presents with impairments in ADL's, overall function, range of motion, strength and tissue tenderness. PROMIS (Patient-Reported Outcomes Measurement Information System) scores werereviewed and physical function domain identified as within normal limits. Prognosis for therapy is Fair due to: clinical presentation;limited tolerance to activity . She will benefit from skilled therapy services to meet the goals established for this plan of care as noted below. Goals for Episode of Care: created on 08/13/21 through 10/13/21 [place] in home exercise program. Patient will decrease pain rating by 2 points to meet minimal clinical important difference for numeric pain rating scale. Patient will increase active ROM of R shoulder to = L to allow pt to to improve performance of ADLs. Patient will demonstrate increase in R shoulder strength to 5/5 during manual muscle testing in order to improve function for basic self-care tasks, home management tasks, leisure / recreation skills, light functional tasks, moderate to heavy functional tasks, prior functional tasks and work tasks. Perform reaching, lifting, and work tasks with decreased report of symptoms/pain in 4-6 weeks. Perform sleeping without pain. Planned Interventions, Frequency, and Duration: Current Frequency: 1x/week Duration: 8 weeks Total Number of Visits Planned: 8 Planned Treatment Interventions: Therapeutic exercise (93251);Neuromuscular re- education (67601);Manual therapy (40614);Therapeutic activities (29786);Self- fpc management (57826);Patient/Family/Caregiver Education;Body Mechanics Training PLAN FOR NEXT VISIT: Assess HEP tolerance, progress per tolerance Patient demonstrates good understanding of plan of care and treatment. The above goals and plan of care were discussed and agreed upon by patient/family. SUBJECTIVE: Doris Grace is a 50 year old female seen today for R shoulder pain x1 month when she fell and caught herself. She notes aching, sharpness, and radiating pain. Notes pain with reachingup, out, and behind her back. Functional Limitations: heavy exertion;lifting;working;sleeping;reaching behind back;reaching overhead;use hand with arm at shoulder level Pain: Pain Pain Level: 8 Pain Location: Shoulder - Right Description: Aching;Sharp Frequency: Intermittent Post Treatment Pain Post Treatment Pain Level: No Change PROMIS Scales Higher is Better 09/27/2015 06/29/2020 GH Physical - Score - 42.3 GH Physical - Percentile 7 % 22 % GH Mental - Score - 48.3 GH Mental - Percentile 34 % 43 % T-scores: mean of general population = 50. 5 points is clinically meaningfully difference Percentiles provide an indication of how the patient's score ranks in relation to the general population. Higher percentile rankings indicate better function/quality of life. 50th percentile is the average of the general population and indicates half of respondents had a worse score. T-scores: mean of general population = 50. 5 points is clinically meaningfully difference Percentiles provide an indication of how the patient's score ranks in relation to the general population. Higher percentile rankings indicate better function/quality of life. 50th percentile is the average of the general population and indicates half of respondents had a worse score. OBJECTIVE MEASURES WITH LEVEL OF FUNCTION: Shoulder Observations R Shoulder Palpation Tenderness: Rotator cuff muscles (Infraspiantus, subscapularis) UE AROM R Shoulder Flex: 160 Degrees R Shoulder ABduction: 90 Degrees R Shoulder Internal Rotation (Functional): L5 R Shoulder External Rotation (Functional): T1 L Shoulder Flex: 160 Degrees L Shoulder ABduction: 160 Degrees L Shoulder Internal Rotation (Functional): T6 L Shoulder External Rotation (Functional): T4 UE and Cervical Strength R UE Strength: 4/5 grossly L UE Strength: 5/5 grossly Special Tests - Shoulder Shoulder Special Tests: Anterior Drawer;Apprehension;Biceps Load;Empty Can;Speed's Anterior Drawer: Right Negative Apprehension: Right Negative Biceps Load: Right Positive Empty Can: Right Negative Speed's: Right Positive Education: Education Learning/educational needs: Home exercise program;Plan of Care;Changes in Plan of Care TREATMENT: PT Treatment Interventions: Therapeutic Exercise Evaluation Therapeutic Exercise: 1: *G Tband IR 3x10 2: *G Tband ER 3x10 3: *Full can 1# 3x10 4: *Shoulder pulleys into flexion/scaption 3x20 5: Long discussion on how exam findings dictated exercise selection, rationale for exercises, and factors into plan of care 6: Shoulder iso's flexion, ER, IR x10 each, 5 sec holds (easy, progressed) Skilled Intervention: Patient was educated in proper exercise technique and purpose for exercises. Skilled judgment was provided in selection of appropriate interventions. Provided written instruction for home exercise program to facilitate proper performance and compliance. Correct performance of therapeutic exercises was facilitated with verbal, visual and tactile cuing. Patient education as noted. Billing * Evaluation Low Complexity: 1 Unit Therapeutic Exercise Treatment Minutes: 24 Total Treatment Time Minutes (timed/untimed): 24 Crow Elliott PT [facility] Miscellaneous Notes* Telephone Encounter - Marjorie Evans Ma - 08/07/2021 9:15 AM EDT Pt notified of results via JDLab. Marjorie Evans Ma * Telephone Encounter - Sivakumar Matamoros PA-C - 08/07/2021 8:35 AM EDT I would recommend PT first and xray [facility] Get Medical Advice on 08/07/21 XR SHOULDER GENERAL 3V OR MORE AP/TRUE AP/OTHER RIGHT CONSULT TO PHYSICAL THERAPY Acute pain of right shoulder (primary encounter diagnosis) Snapping scapula syndrome of right shoulder ThanksTony PA-C * Telephone Encounter - Doris Grace LPN - 08/07/2021 8:15 AM EDT I have also noted a lot of popping sounds with movements and sharp pain at times. [facility] Instructions* Patient Instructions* Sivakumar Matamoros PA-C - 07/17/2021 2:07 PM EDT Rest in a comfortable position. Avoid activities or positions which increase pain. Please review the sheet of exercises provided for stretching. No over head lifting, or extended arm pushing or pulling over the next few days. Moist heat generally also helps muscles to relax, You may apply it for 10-15 minutes every few hours if needed. Ice may also help similarly to block pain Call with a progress report over the next few days. [facility] History of Present illness Narrative* Sivakumar Matamoros PA-C - 07/17/2021 1:54 PM EDT 50 year old female with c/o tripped on a curb, fell on outstretched hands. Very painful. A little better to day. Ibuprofen 400-800mg twice a day with depending on how much it hurt. No prior injury but has had pain in shoulder during exercise years ago, improved. HISTORIES FAMILY HISTORY Problem Relation Age of Onset Hypertension Mother Seizures Mother HISTORY OF Cancer Mother CERVICAL Diabetes Mother Pre-diabetic Hypertension Maternal Grandmother Diabetes Maternal Grandmother Coronary Artery Disease Maternal Grandmother BYPASS SURGERY Cataract Maternal Grandmother Glaucoma Maternal Grandmother Macular Degen Maternal Grandfather other (MACULAR DEGENERATION) Maternal Grandfather Cancer Paternal Grandfather LUNG, bore miner operator, non smoker other (Non-Hodgkin's disease) Father Hyperlipidemia Son other (Bicuspid Aortic Valve) Son Hypertension Brother PAST MEDICAL HISTORY Diagnosis Date Abdominal pain, epigastric Abdominal pain, right lower quadrant Adjustment disorder with depressed mood Allergic rhinitis due to other allergen Esophagitis, unspecified Exercise-induced asthma possible, no spirometry in past Internal hemorrhoids without mention of complication Irritable bowel syndrome PMH - PAST MEDICAL HISTORY OF acme Superficial injury of hip, thigh, leg, and ankle ACL/MCL PARTIALLY TORN Temporomandibular joint sounds on opening and/or closing the jaw PAST SURGICAL HISTORY Procedure Laterality Date ARTHROSCOPY KNEE DIAGNOSTIC W/WO SYNOVIAL BX SPX Left 03/2017 Arthroscopy, knee COLONOSCOPY FLX DX W/COLLJ SPEC WHEN PFRMD 11/23/2005 Normal COLONOSCOPY FLX DX W/COLLJ SPEC WHEN PFRMD 09/23/2020 EGD TRANSORAL BIOPSY SINGLE/MULTIPLE 12/19/2008 Gastritis ESOPHAGOGASTRODUODENOSCOPY TRANSORAL DIAGNOSTIC 09/23/2020 LAPS ABD PRTM&OMENTUM DX W/WO SPEC BR/WA SPX Laparoscopy for endometriosis LAPS ABD PRTM&OMENTUM DX W/WO SPEC BR/WA SPX Laparoscopy for endometriosis REM LESION FACE,EAR,EYEL <5MM 06/30/2006 EXCISION LESION NASAL BRIDGE REM LESION FACE,EAR,EYEL <5MM 06/30/2006 LEFT INNER CANTHUS TOTAL ABDOMINAL HYSTERECT W/WO RMVL TUBE OVARY 2004 Hysterectomy for endometriosis, GABRIEL and BSO Social History Tobacco Use Smoking status: Never Smoker Smokeless tobacco: Never Used Vaping Use Vaping Use: Never used Substance Use Topics Alcohol use: Yes Comment: OCCASIONALLY Drug use: No ACTIVE PROBLEM LIST Allergic Rhinitis Due to Other Allergen Adjustment Disorder With Depressed Mood Temporomandibular Joint Sounds On Opening and/Or Closing The Jaw Irritable Bowel Syndrome Internal Hemorrhoids Without Mention of Complication Eczematous Dermatitis Other Psoriasis Lichenification and Lichen Simplex Chronicus H/O Total Hysterectomy With Removal of Both Tubes and Ovaries Pain in Joint, Lower Leg Myopia, Bilateral Tear of Medial Meniscus of Knee Joint Gastroesophageal Reflux Disease Without Esophagitis Ponv (Postoperative Nausea and Vomiting) Mild Intermittent Asthma Without Complication Current Outpatient Medications Medication Sig Dispense Refill estradiol (ESTRACE) 1 mg tablet Take 1 and 1/2 tablets by mouth once daily. 135 tablet 0 omeprazole (PRILOSEC) 20 mg capsule Take 1 capsule by mouth once daily. 90 capsule 3 buPROPion XL (WELLBUTRIN XL) 150 mg 24 hr tablet Take 1 tablet by mouth once daily. To equal 450mg daily 90 tablet 1 buPROPion XL (WELLBUTRIN XL) 300 mg 24 hr tablet Take 1 tablet by mouth once daily. 90 tablet 1 escitalopram oxalate (LEXAPRO) 10 mg tablet Take 1 tablet by mouth once daily. 90 tablet 1 albuterol HFA (PROVENTIL HFA, VENTOLIN HFA) 90 mcg/actuation inhaler Inhale 2 Puffs as instructed every 4 hours as needed (for cough, wheezing, chest tightness or shortness of breath. Use with spacer. ). 18 g 3 cyclobenzaprine (FLEXERIL) 10 mg tablet Take 1 tablet by mouth three times daily as needed for Muscle Spasm. 30 tablet 5 promethazine (PHENERGAN) 25 mg tablet Take 1/2 - 1 tablet by mouth every 4 hours as needed for nausea 45 tablet 1 nystatin (MYCOSTATIN) powder Apply 1 application to affected area four times daily. 15 g 0 diphenhydramine HCl (BENADRYL ORAL) Take by mouth as directed. acetaminophen (TYLENOL) 325 mg tablet Take 650 mg by mouth every 6 hours as needed. LORazepam (ATIVAN) 0.5 mg tab Take 1 tablet by mouth twice daily as needed. 45 tablet 0 clobetasol 0.05 % ointment Apply selectively to spots or lesions of eczematous and psoriasiform dermatitis of elbows and lower legs: once to twice per day for up to 2-4 weeks or less as needed until clear and then try to stop or taper off to a bland emollient cream such as CeraVe cream (or Cetaphilcream) as able. AVOID deep fold areas, face, eyes, and eyelids with the Clobetasol. 60 g 2 fluticasone 50 mcg/actuation nasal spray Use 2 Sprays in each nostril once daily. Rinse mouth afteruse. 3 Bottle 3 fexofenadine (TELLY) 180 mg tablet Take 180 mg by mouth once daily. Cholecalciferol, Vitamin D3, (VITAMIN D) 1,000 unit cap Take 1,000 Units by mouth once daily. ondansetron (ZOFRAN) 4 mg tablet Take 4 mg by mouth every 8 hours as needed for nausea/vomiting. (Patient not taking: Reported on 07/17/2021 ) multivit-min/ferrous fumarate (MULTI VITAMIN ORAL) Take by mouth. Current Facility-Administered Medications Medication Dose Route Frequency Provider Last Rate Last Admin perflutren lipid microspheres 1.3 mL in NaCl (PF) 0.9% 10 mL injection (DEFINITY) INTRAVENOUS DIRECTED PRN Renetta Mcgrath APRN.ARAM sodium chloride 0.9 % (flush) 10 mL (BD POSIFLUSH) 10 mL INTRAVENOUS DIRECTED PRN Renetta Mcgrath APRN.ARAM DEPRESSION SCREENING due on 05/21/2017 SHINGRIX VACCINE(1 of 2) Never done EXAM: BP 128/72 Pulse 78 Resp 16 SpO2 98% Pleasant adult woman in no acute distress. Alert and oriented all spheres. Normal affect and cognition. Speech normal. No deficits to learning or comprehension. Skin warm, dry, pink to lips and nailbeds. Normal turgor. Respirations regular and unlabored. + TTPs in upper trapezius, supraspinatus, teres major, subscapularis, coracobrachialis. Negative Chauncey's. Negative Escalera. Negative speeds. Pain with ROM past 90 degrees fexion Extrem: no clubbing or cyanosis. Edema: none. Extremities are warm and pink with prompt capillary refill. OMT: Myofascial release to tender trigger points with improvement in range of motion, nearly to full. ASSESSMENT/PLAN: 1. Sprain of right rotator cuff capsule, initial encounter - ICD9: 840.4, ICD10: S43.421A Given current AMS handout on shoulder rehab exercises with demonstration. Patient declines medication, will continue OTC. Follow-up as needed if not improving over the next 2 to 3 weeks. I do not think she needs x-ray at this point. 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 Pruritus 09/29/2011 08/15/2015 Excoriation 09/29/2011 08/15/2015 Xerosis cutis 09/29/2011 08/15/2015 Adult attention deficit disorder 02/05/2010 05/31/2012 Lumbar disc narrowing 04/16/2009 05/31/2012 Overview: L5-S1 per x-ray 12/2007 -- right-sided sciatica Abdominal pain, epigastric 12/19/200805/31 Esophagitis, unspecified 12/19/2008 016 Old disruption of anterior cruciate ligament 05/31/2012 Superficial injury of hip, thigh, leg, and ankle 05/31/2012 Overview: ACL/MCL PARTIALLY TORN Abdominal pain, right lower quadrant 05/31/2012 documented as of this encounter (statuses as of 07/18/2021) [facility] History of Past illness Narrative* Problem Noted Date Resolved Date Episcleritis of left eye 10/22/2015 018 Counseling and coordination of care 08/23/2014 12/20/2014 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 Pruritus 09/29/2011 08/15/2015 Excoriation 09/29/2011 08/15/2015 Xerosis cutis 09/29/2011 08/15/2015 Adult attention deficit disorder 02/05/2010 05/31/2012 Lumbar disc narrowing 04/16/2009 05/31/2012 Overview: L5-S1 per x-ray 12/2007 -- right-sided sciatica Abdominal pain, epigastric 12/19/200805/31 Esophagitis, unspecified 12/19/2008 016 Old disruption of anterior cruciate ligament 05/31/2012 Superficial injury of hip, thigh, leg, and ankle 05/31/2012 Overview: ACL/MCL PARTIALLY TORN Abdominal pain, right lower quadrant 05/31/2012 documented as of this encounter (statuses as of 08/07/2021) [facility] History of Past illness Narrative* Problem Noted Date Resolved Date Episcleritis of left eye 10/22/2015 018 Counseling and coordination of care 08/23/2014 12/20/2014 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 Pruritus 09/29/2011 08/15/2015 Excoriation 09/29/2011 08/15/2015 Xerosis cutis 09/29/2011 08/15/2015 Adult attention deficit disorder 02/05/2010 05/31/2012 Lumbar disc narrowing 04/16/2009 05/31/2012 Overview: L5-S1 per x-ray 12/2007 -- right-sided sciatica Abdominal pain, epigastric 12/19/200805/31 Esophagitis, unspecified 12/19/2008 016 Old disruption of anterior cruciate ligament 05/31/2012 Superficial injury of hip, thigh, leg, and ankle 05/31/2012 Overview: ACL/MCL PARTIALLY TORN Abdominal pain, right lower quadrant 05/31/2012 documented as of this encounter (statuses as of 08/08/2021) [facility] History of Past illness Narrative* Problem Noted Date Resolved Date Episcleritis of left eye 10/22/2015 05/25/2 018 Counseling and coordination of care 08/23/2014 12/20/2014 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 Pruritus 09/29/2011 08/15/2015 Excoriation 09/29/2011 08/15/2015 Xerosis cutis 09/29/2011 08/15/2015 Adult attention deficit disorder 02/05/2010 05/31/2012 Lumbar disc narrowing 04/16/2009 05/31/2012 Overview: L5-S1 per x-ray 12/2007 -- right-sided sciatica Abdominal pain, epigastric 12/19/200805/31 Esophagitis, unspecified 12/19/2008 016 Old disruption of anterior cruciate ligament 05/31/2012 Superficial injury of hip, thigh, leg, and ankle 05/31/2012 Overview: ACL/MCL PARTIALLY TORN Abdominal pain, right lower quadrant 05/31/2012 documented as of this encounter (statuses as of 08/11/2021) [facility] History of Past illness Narrative* Problem Noted Date Resolved Date Episcleritis of left eye 10/22/2015 018 Counseling and coordination of care 08/23/2014 12/20/2014 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 Pruritus 09/29/2011 08/15/2015 Excoriation 09/29/2011 08/15/2015 Xerosis cutis 09/29/2011 08/15/2015 Adult attention deficit disorder 02/05/2010 05/31/2012 Lumbar disc narrowing 04/16/2009 05/31/2012 Overview: L5-S1 per x-ray 12/2007 -- right-sided sciatica Abdominal pain, epigastric 12/19/200805/31 Esophagitis, unspecified 12/19/2008 016 Old disruption of anterior cruciate ligament 05/31/2012 Superficial injury of hip, thigh, leg, and ankle 05/31/2012 Overview: ACL/MCL PARTIALLY TORN Abdominal pain, right lower quadrant 05/31/2012 documented as of this encounter (statuses as of 08/13/2021) [facility] History of Past illness Narrative* Problem Noted Date Resolved Date Episcleritis of left eye 10/22/2015 018 Counseling and coordination of care 08/23/2014 12/20/2014 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 Pruritus 09/29/2011 08/15/2015 Excoriation 09/29/2011 08/15/2015 Xerosis cutis 09/29/2011 08/15/2015 Adult attention deficit disorder 02/05/2010 05/31/2012 Lumbar disc narrowing 04/16/2009 05/31/2012 Overview: L5-S1 per x-ray 12/2007 -- right-sided sciatica Abdominal pain, epigastric 12/19/200805/31 Esophagitis, unspecified 12/19/2008 016 Old disruption of anterior cruciate ligament 05/31/2012 Superficial injury of hip, thigh, leg, and ankle 05/31/2012 Overview: ACL/MCL PARTIALLY TORN Abdominal pain, right lower quadrant 05/31/2012 documented as of this encounter (statuses as of 08/13/2021) [facility]07-12-2016 History of Past illness Narrative* Problem Noted Date Resolved Date Episcleritis of left eye 10/22/2015 018 Counseling and coordination of care 08/23/2014 12/20/2014 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 Pruritus 09/29/2011 08/15/2015 Excoriation 09/29/2011 08/15/2015 Xerosis cutis 09/29/2011 08/15/2015 Adult attention deficit disorder 02/05/2010 05/31/2012 Lumbar disc narrowing 04/16/2009 05/31/2012 Overview: L5-S1 per x-ray 12/2007 -- right-sided sciatica Abdominal pain, epigastric 12/19/200805/31 Esophagitis, unspecified 12/19/2008 016 Old disruption of anterior cruciate ligament 05/31/2012 Superficial injury of hip, thigh, leg, and ankle 05/31/2012 Overview: ACL/MCL PARTIALLY TORN Abdominal pain, right lower quadrant 05/31/2012 documented as of this encounter (statuses as of 08/25/2021) [facility]2016 History of Past illness Narrative* Problem Noted Date Resolved Date Episcleritis of left eye 10/22/2015 018 Counseling and coordination of care 08/23/2014 12/20/2014 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 Pruritus 09/29/2011 08/15/2015 Excoriation 09/29/2011 08/15/2015 Xerosis cutis 09/29/2011 08/15/2015 Adult attention deficit disorder 02/05/2010 05/31/2012 Lumbar disc narrowing 04/16/2009 05/31/2012 Overview: L5-S1 per x-ray 12/2007 -- right-sided sciatica Abdominal pain, epigastric 12/19/200805/31 Esophagitis, unspecified 12/19/2008 016 Old disruption of anterior cruciate ligament 05/31/2012 Superficial injury of hip, thigh, leg, and ankle 05/31/2012 Overview: ACL/MCL PARTIALLY TORN Abdominal pain, right lower quadrant 05/31/2012 documented as of this encounter (statuses as of 09/04/2021) [facility] History of Past illness Narrative* Problem Noted Date Resolved Date Episcleritis of left eye 10/22/2015 018 Counseling and coordination of care 08/23/2014 12/20/2014 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 Pruritus 09/29/2011 08/15/2015 Excoriation 09/29/2011 08/15/2015 Xerosis cutis 09/29/2011 08/15/2015 Adult attention deficit disorder 02/05/2010 05/31/2012 Lumbar disc narrowing 04/16/2009 05/31/2012 Overview: L5-S1 per x-ray 12/2007 -- right-sided sciatica Abdominal pain, epigastric 12/19/200805/31 Esophagitis, unspecified 12/19/2008 016 Old disruption of anterior cruciate ligament 05/31/2012 Superficial injury of hip, thigh, leg, and ankle 05/31/2012 Overview: ACL/MCL PARTIALLY TORN Abdominal pain, right lower quadrant 05/31/2012 documented as of this encounter (statuses as of 09/12/2021) [facility] History of Past illness Narrative* Problem Noted Date Resolved Date Episcleritis of left eye 10/22/2015 018 Counseling and coordination of care 08/23/2014 12/20/2014 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 Pruritus 09/29/2011 08/15/2015 Excoriation 09/29/2011 08/15/2015 Xerosis cutis 09/29/2011 08/15/2015 Adult attention deficit disorder 02/05/2010 05/31/2012 Lumbar disc narrowing 04/16/2009 05/31/2012 Overview: L5-S1 per x-ray 12/2007 -- right-sided sciatica Abdominal pain, epigastric 12/19/200805/31 Esophagitis, unspecified 12/19/2008 016 Old disruption of anterior cruciate ligament 05/31/2012 Superficial injury of hip, thigh, leg, and ankle 05/31/2012 Overview: ACL/MCL PARTIALLY TORN Abdominal pain, right lower quadrant 05/31/2012 documented as of this encounter (statuses as of 09/19/2021) [facility] History of Past illness Narrative* Problem Noted Date Resolved Date Episcleritis of left eye 10/22/2015 018 Counseling and coordination of care 08/23/2014 12/20/2014 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 Pruritus 09/29/2011 08/15/2015 Excoriation 09/29/2011 08/15/2015 Xerosis cutis 09/29/2011 08/15/2015 Adult attention deficit disorder 02/05/2010 05/31/2012 Lumbar disc narrowing 04/16/2009 05/31/2012 Overview: L5-S1 per x-ray 12/2007 -- right-sided sciatica Abdominal pain, epigastric 12/19/200805/31 Esophagitis, unspecified 12/19/2008 016 Old disruption of anterior cruciate ligament 05/31/2012 Superficial injury of hip, thigh, leg, and ankle 05/31/2012 Overview: ACL/MCL PARTIALLY TORN Abdominal pain, right lower quadrant 05/31/2012 documented as of this encounter (statuses as of 12/03/2021) [facility] History of Past illness Narrative* Problem Noted Date Resolved Date Episcleritis of left eye 10/22/2015 018 Counseling and coordination of care 08/23/2014 12/20/2014 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 Pruritus 09/29/2011 08/15/2015 Excoriation 09/29/2011 08/15/2015 Xerosis cutis 09/29/2011 08/15/2015 Adult attention deficit disorder 02/05/2010 05/31/2012 Lumbar disc narrowing 04/16/2009 05/31/2012 Overview: L5-S1 per x-ray 12/2007 -- right-sided sciatica Abdominal pain, epigastric 12/19/200805/31 Esophagitis, unspecified 12/19/2008 016 Old disruption of anterior cruciate ligament 05/31/2012 Superficial injury of hip, thigh, leg, and ankle 05/31/2012 Overview: ACL/MCL PARTIALLY TORN Abdominal pain, right lower quadrant 05/31/2012 documented as of this encounter (statuses as of 01/28/2022) [facility] History of Past illness Narrative* Problem Noted Date Resolved Date Episcleritis of left eye 10/22/2015 018 Counseling and coordination of care 08/23/2014 12/20/2014 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 Pruritus 09/29/2011 08/15/2015 Excoriation 09/29/2011 08/15/2015 Xerosis cutis 09/29/2011 08/15/2015 Adult attention deficit disorder 02/05/2010 05/31/2012 Lumbar disc narrowing 04/16/2009 05/31/2012 Overview: L5-S1 per x-ray 12/2007 -- right-sided sciatica Abdominal pain, epigastric 12/19/200805/31 Esophagitis, unspecified 12/19/2008 016 Old disruption of anterior cruciate ligament 05/31/2012 Superficial injury of hip, thigh, leg, and ankle 05/31/2012 Overview: ACL/MCL PARTIALLY TORN Abdominal pain, right lower quadrant 05/31/2012 documented as of this encounter (statuses as of 02/06/2022) [facility] History of Past illness Narrative* Problem Noted Date Resolved Date Episcleritis of left eye 10/22/2015 018 Counseling and coordination of care 08/23/2014 12/20/2014 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 Pruritus 09/29/2011 08/15/2015 Excoriation 09/29/2011 08/15/2015 Xerosis cutis 09/29/2011 08/15/2015 Adult attention deficit disorder 02/05/2010 05/31/2012 Lumbar disc narrowing 04/16/2009 05/31/2012 Overview: L5-S1 per x-ray 12/2007 -- right-sided sciatica Abdominal pain, epigastric 12/19/200805/31 Esophagitis, unspecified 12/19/2008 016 Old disruption of anterior cruciate ligament 05/31/2012 Superficial injury of hip, thigh, leg, and ankle 05/31/2012 Overview: ACL/MCL PARTIALLY TORN Abdominal pain, right lower quadrant 05/31/2012 documented as of this encounter (statuses as of 03/02/2022) [facility] History of Past illness Narrative* Problem Noted Date Resolved Date Episcleritis of left eye 10/22/2015 018 Counseling and coordination of care 08/23/2014 12/20/2014 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 Pruritus 09/29/2011 08/15/2015 Excoriation 09/29/2011 08/15/2015 Xerosis cutis 09/29/2011 08/15/2015 Adult attention deficit disorder 02/05/2010 05/31/2012 Lumbar disc narrowing 04/16/2009 05/31/2012 Overview: L5-S1 per x-ray 12/2007 -- right-sided sciatica Abdominal pain, epigastric 12/19/200805/31 Esophagitis, unspecified 12/19/2008 016 Old disruption of anterior cruciate ligament 05/31/2012 Superficial injury of hip, thigh, leg, and ankle 05/31/2012 Overview: ACL/MCL PARTIALLY TORN Abdominal pain, right lower quadrant 05/31/2012 documented as of this encounter (statuses as of 03/04/2022) [facility] History of Past illness Narrative* Problem Noted Date Resolved Date Episcleritis of left eye 10/22/2015 018 Counseling and coordination of care 08/23/2014 12/20/2014 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 Pruritus 09/29/2011 08/15/2015 Excoriation 09/29/2011 08/15/2015 Xerosis cutis 09/29/2011 08/15/2015 Adult attention deficit disorder 02/05/2010 05/31/2012 Lumbar disc narrowing 04/16/2009 05/31/2012 Overview: L5-S1 per x-ray 12/2007 -- right-sided sciatica Abdominal pain, epigastric 12/19/200805/31 Esophagitis, unspecified 12/19/2008 016 Old disruption of anterior cruciate ligament 05/31/2012 Superficial injury of hip, thigh, leg, and ankle 05/31/2012 Overview: ACL/MCL PARTIALLY TORN Abdominal pain, right lower quadrant 05/31/2012 documented as of this encounter (statuses as of 03/12/2022) [facility] History of Past illness Narrative* Problem Noted Date Resolved Date Episcleritis of left eye 10/22/2015 018 Counseling and coordination of care 08/23/2014 12/20/2014 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 Pruritus 09/29/2011 08/15/2015 Excoriation 09/29/2011 08/15/2015 Xerosis cutis 09/29/2011 08/15/2015 Adult attention deficit disorder 02/05/2010 05/31/2012 Lumbar disc narrowing 04/16/2009 05/31/2012 Overview: L5-S1 per x-ray 12/2007 -- right-sided sciatica Abdominal pain, epigastric 12/19/200805/31 Esophagitis, unspecified 12/19/2008 016 Old disruption of anterior cruciate ligament 05/31/2012 Superficial injury of hip, thigh, leg, and ankle 05/31/2012 Overview: ACL/MCL PARTIALLY TORN Abdominal pain, right lower quadrant 05/31/2012 documented as of this encounter (statuses as of 03/19/2022) [facility] History of Past illness Narrative* Problem Noted Date Resolved Date Episcleritis of left eye 10/22/2015 018 Counseling and coordination of care 08/23/2014 12/20/2014 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 Pruritus 09/29/2011 08/15/2015 Excoriation 09/29/2011 08/15/2015 Xerosis cutis 09/29/2011 08/15/2015 Adult attention deficit disorder 02/05/2010 05/31/2012 Lumbar disc narrowing 04/16/2009 05/31/2012 Overview: L5-S1 per x-ray 12/2007 -- right-sided sciatica Abdominal pain, epigastric 12/19/200805/31 Esophagitis, unspecified 12/19/2008 016 Old disruption of anterior cruciate ligament 05/31/2012 Superficial injury of hip, thigh, leg, and ankle 05/31/2012 Overview: ACL/MCL PARTIALLY TORN Abdominal pain, right lower quadrant 05/31/2012 documented as of this encounter (statuses as of 03/25/2022) [facility] History of Past illness Narrative* Problem Noted Date Resolved Date Episcleritis of left eye 10/22/2015 018 Counseling and coordination of care 08/23/2014 12/20/2014 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 Pruritus 09/29/2011 08/15/2015 Excoriation 09/29/2011 08/15/2015 Xerosis cutis 09/29/2011 08/15/2015 Adult attention deficit disorder 02/05/2010 05/31/2012 Lumbar disc narrowing 04/16/2009 05/31/2012 Overview: L5-S1 per x-ray 12/2007 -- right-sided sciatica Abdominal pain, epigastric 12/19/200805/31 Esophagitis, unspecified 12/19/2008 016 Old disruption of anterior cruciate ligament 05/31/2012 Superficial injury of hip, thigh, leg, and ankle 05/31/2012 Overview: ACL/MCL PARTIALLY TORN Abdominal pain, right lower quadrant 05/31/2012 documented as of this encounter (statuses as of 03/26/2022) [facility] History of Past illness Narrative* Problem Noted Date Resolved Date Episcleritis of left eye 10/22/2015 018 Counseling and coordination of care 08/23/2014 12/20/2014 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 Pruritus 09/29/2011 08/15/2015 Excoriation 09/29/2011 08/15/2015 Xerosis cutis 09/29/2011 08/15/2015 Adult attention deficit disorder 02/05/2010 05/31/2012 Lumbar disc narrowing 04/16/2009 05/31/2012 Overview: L5-S1 per x-ray 12/2007 -- right-sided sciatica Abdominal pain, epigastric 12/19/200805/31 Esophagitis, unspecified 12/19/2008 016 Old disruption of anterior cruciate ligament 05/31/2012 Superficial injury of hip, thigh, leg, and ankle 05/31/2012 Overview: ACL/MCL PARTIALLY TORN Abdominal pain, right lower quadrant 05/31/2012 documented as of this encounter (statuses as of 03/31/2022) [facility] History of Past illness Narrative* Problem Noted Date Resolved Date Episcleritis of left eye 10/22/2015 018 Counseling and coordination of care 08/23/2014 12/20/2014 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 Pruritus 09/29/2011 08/15/2015 Excoriation 09/29/2011 08/15/2015 Xerosis cutis 09/29/2011 08/15/2015 Adult attention deficit disorder 02/05/2010 05/31/2012 Lumbar disc narrowing 04/16/2009 05/31/2012 Overview: L5-S1 per x-ray 12/2007 -- right-sided sciatica Abdominal pain, epigastric 12/19/200805/31 Esophagitis, unspecified 12/19/2008 016 Old disruption of anterior cruciate ligament 05/31/2012 Superficial injury of hip, thigh, leg, and ankle 05/31/2012 Overview: ACL/MCL PARTIALLY TORN Abdominal pain, right lower quadrant 05/31/2012 documented as of this encounter (statuses as of 05/01/2022) [facility]2016 History of Past illness Narrative* Problem Noted Date Resolved Date Episcleritis of left eye 10/22/2015 018 Counseling and coordination of care 08/23/2014 12/20/2014 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 Pruritus 09/29/2011 08/15/2015 Excoriation 09/29/2011 08/15/2015 Xerosis cutis 09/29/2011 08/15/2015 Adult attention deficit disorder 02/05/2010 05/31/2012 Lumbar disc narrowing 04/16/2009 05/31/2012 Overview: L5-S1 per x-ray 12/2007 -- right-sided sciatica Abdominal pain, epigastric 12/19/200805/31 Esophagitis, unspecified 12/19/2008 016 Old disruption of anterior cruciate ligament 05/31/2012 Superficial injury of hip, thigh, leg, and ankle 05/31/2012 Overview: ACL/MCL PARTIALLY TORN Abdominal pain, right lower quadrant 05/31/2012 documented as of this encounter (statuses as of 05/13/2022) [facility]2016 History of Past illness Narrative* Problem Noted Date Resolved Date Episcleritis of left eye 10/22/2015 018 Counseling and coordination of care 08/23/2014 12/20/2014 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 Pruritus 09/29/2011 08/15/2015 Excoriation 09/29/2011 08/15/2015 Xerosis cutis 09/29/2011 08/15/2015 Adult attention deficit disorder 02/05/2010 05/31/2012 Lumbar disc narrowing 04/16/2009 05/31/2012 Overview: L5-S1 per x-ray 12/2007 -- right-sided sciatica Abdominal pain, epigastric 12/19/200805/31 Esophagitis, unspecified 12/19/2008 016 Old disruption of anterior cruciate ligament 05/31/2012 Superficial injury of hip, thigh, leg, and ankle 05/31/2012 Overview: ACL/MCL PARTIALLY TORN Abdominal pain, right lower quadrant 05/31/2012 documented as of this encounter (statuses as of 05/14/2022) [facility]2016 History of Past illness Narrative* Problem Noted Date Resolved Date Episcleritis of left eye 10/22/2015 018 Counseling and coordination of care 08/23/2014 12/20/2014 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 Pruritus 09/29/2011 08/15/2015 Excoriation 09/29/2011 08/15/2015 Xerosis cutis 09/29/2011 08/15/2015 Adult attention deficit disorder 02/05/2010 05/31/2012 Lumbar disc narrowing 04/16/2009 05/31/2012 Overview: L5-S1 per x-ray 12/2007 -- right-sided sciatica Abdominal pain, epigastric 12/19/200805/31 Esophagitis, unspecified 12/19/2008 016 Old disruption of anterior cruciate ligament 05/31/2012 Superficial injury of hip, thigh, leg, and ankle 05/31/2012 Overview: ACL/MCL PARTIALLY TORN Abdominal pain, right lower quadrant 05/31/2012 documented as of this encounter (statuses as of 05/16/2022) [facility]2016 History of Past illness Narrative* Problem Noted Date Resolved Date Episcleritis of left eye 10/22/2015 018 Counseling and coordination of care 08/23/2014 12/20/2014 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 Pruritus 09/29/2011 08/15/2015 Excoriation 09/29/2011 08/15/2015 Xerosis cutis 09/29/2011 08/15/2015 Adult attention deficit disorder 02/05/2010 05/31/2012 Lumbar disc narrowing 04/16/2009 05/31/2012 Overview: L5-S1 per x-ray 12/2007 -- right-sided sciatica Abdominal pain, epigastric 12/19/200805/31 Esophagitis, unspecified 12/19/2008 016 Old disruption of anterior cruciate ligament 05/31/2012 Superficial injury of hip, thigh, leg, and ankle 05/31/2012 Overview: ACL/MCL PARTIALLY TORN Abdominal pain, right lower quadrant 05/31/2012 documented as of this encounter (statuses as of 05/24/2022) [facility] History of Past illness Narrative* Problem Noted Date Resolved Date Episcleritis of left eye 10/22/2015 018 Counseling and coordination of care 08/23/2014 12/20/2014 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 Pruritus 09/29/2011 08/15/2015 Excoriation 09/29/2011 08/15/2015 Xerosis cutis 09/29/2011 08/15/2015 Adult attention deficit disorder 02/05/2010 05/31/2012 Lumbar disc narrowing 04/16/2009 05/31/2012 Overview: L5-S1 per x-ray 12/2007 -- right-sided sciatica Abdominal pain, epigastric 12/19/200805/31 Esophagitis, unspecified 12/19/2008 016 Old disruption of anterior cruciate ligament 05/31/2012 Superficial injury of hip, thigh, leg, and ankle 05/31/2012 Overview: ACL/MCL PARTIALLY TORN Abdominal pain, right lower quadrant 05/31/2012 documented as of this encounter (statuses as of 05/26/2022) [facility] History of Past illness Narrative* Problem Noted Date Resolved Date Episcleritis of left eye 10/22/2015 018 Counseling and coordination of care 08/23/2014 12/20/2014 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 Pruritus 09/29/2011 08/15/2015 Excoriation 09/29/2011 08/15/2015 Xerosis cutis 09/29/2011 08/15/2015 Adult attention deficit disorder 02/05/2010 05/31/2012 Lumbar disc narrowing 04/16/2009 05/31/2012 Overview: L5-S1 per x-ray 12/2007 -- right-sided sciatica Abdominal pain, epigastric 12/19/200805/31 Esophagitis, unspecified 12/19/2008 016 Old disruption of anterior cruciate ligament 05/31/2012 Superficial injury of hip, thigh, leg, and ankle 05/31/2012 Overview: ACL/MCL PARTIALLY TORN Abdominal pain, right lower quadrant 05/31/2012 documented as of this encounter (statuses as of 05/26/2022) [facility]2016 History of Past illness Narrative* Problem Noted Date Resolved Date Episcleritis of left eye 10/22/2015 018 Counseling and coordination of care 08/23/2014 12/20/2014 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 Pruritus 09/29/2011 08/15/2015 Excoriation 09/29/2011 08/15/2015 Xerosis cutis 09/29/2011 08/15/2015 Adult attention deficit disorder 02/05/2010 05/31/2012 Lumbar disc narrowing 04/16/2009 05/31/2012 Overview: L5-S1 per x-ray 12/2007 -- right-sided sciatica Abdominal pain, epigastric 12/19/200805/31 Esophagitis, unspecified 12/19/2008 016 Old disruption of anterior cruciate ligament 05/31/2012 Superficial injury of hip, thigh, leg, and ankle 05/31/2012 Overview: ACL/MCL PARTIALLY TORN Abdominal pain, right lower quadrant 05/31/2012 documented as of this encounter (statuses as of 05/28/2022) [facility] History of Past illness Narrative* Problem Noted Date Resolved Date Episcleritis of left eye 10/22/2015 018 Counseling and coordination of care 08/23/2014 12/20/2014 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 Pruritus 09/29/2011 08/15/2015 Excoriation 09/29/2011 08/15/2015 Xerosis cutis 09/29/2011 08/15/2015 Adult attention deficit disorder 02/05/2010 05/31/2012 Lumbar disc narrowing 04/16/2009 05/31/2012 Overview: L5-S1 per x-ray 12/2007 -- right-sided sciatica Abdominal pain, epigastric 12/19/200805/31 Esophagitis, unspecified 12/19/2008 016 Old disruption of anterior cruciate ligament 05/31/2012 Superficial injury of hip, thigh, leg, and ankle 05/31/2012 Overview: ACL/MCL PARTIALLY TORN Abdominal pain, right lower quadrant 05/31/2012 documented as of this encounter (statuses as of 06/15/2022) [facility] History of Past illness Narrative* Problem Noted Date Resolved Date Episcleritis of left eye 10/22/2015 018 Counseling and coordination of care 08/23/2014 12/20/2014 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 Pruritus 09/29/2011 08/15/2015 Excoriation 09/29/2011 08/15/2015 Xerosis cutis 09/29/2011 08/15/2015 Adult attention deficit disorder 02/05/2010 05/31/2012 Lumbar disc narrowing 04/16/2009 05/31/2012 Overview: L5-S1 per x-ray 12/2007 -- right-sided sciatica Abdominal pain, epigastric 12/19/200805/31 Esophagitis, unspecified 12/19/2008 016 Old disruption of anterior cruciate ligament 05/31/2012 Superficial injury of hip, thigh, leg, and ankle 05/31/2012 Overview: ACL/MCL PARTIALLY TORN Abdominal pain, right lower quadrant 05/31/2012 documented as of this encounter (statuses as of 06/17/2022) [facility] History of Past illness Narrative* Problem Noted Date Resolved Date Episcleritis of left eye 10/22/2015 018 Counseling and coordination of care 08/23/2014 12/20/2014 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 Pruritus 09/29/2011 08/15/2015 Excoriation 09/29/2011 08/15/2015 Xerosis cutis 09/29/2011 08/15/2015 Adult attention deficit disorder 02/05/2010 05/31/2012 Lumbar disc narrowing 04/16/2009 05/31/2012 Overview: L5-S1 per x-ray 12/2007 -- right-sided sciatica Abdominal pain, epigastric 12/19/200805/31 Esophagitis, unspecified 12/19/2008 05/05/2 016 Old disruption of anterior cruciate ligament 05/31/2012 Superficial injury of hip, thigh, leg, and ankle 05/31/2012 Overview: ACL/MCL PARTIALLY TORN Abdominal pain, right lower quadrant 05/31/2012 documented as of this encounter (statuses as of 06/28/2022) [facility] History of Past illness Narrative* Problem Noted Date Resolved Date Episcleritis of left eye 10/22/2015 018 Counseling and coordination of care 08/23/2014 12/20/2014 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 Pruritus 09/29/2011 08/15/2015 Excoriation 09/29/2011 08/15/2015 Xerosis cutis 09/29/2011 08/15/2015 Adult attention deficit disorder 02/05/2010 05/31/2012 Lumbar disc narrowing 04/16/2009 05/31/2012 Overview: L5-S1 per x-ray 12/2007 -- right-sided sciatica Abdominal pain, epigastric 12/19/200805/31 Esophagitis, unspecified 12/19/2008 016 Old disruption of anterior cruciate ligament 05/31/2012 Superficial injury of hip, thigh, leg, and ankle 05/31/2012 Overview: ACL/MCL PARTIALLY TORN Abdominal pain, right lower quadrant 05/31/2012 documented as of this encounter (statuses as of 07/13/2022) [facility] History of Past illness Narrative* Problem Noted Date Resolved Date Episcleritis of left eye 10/22/2015 018 Counseling and coordination of care 08/23/2014 12/20/2014 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 Pruritus 09/29/2011 08/15/2015 Excoriation 09/29/2011 08/15/2015 Xerosis cutis 09/29/2011 08/15/2015 Adult attention deficit disorder 02/05/2010 05/31/2012 Lumbar disc narrowing 04/16/2009 05/31/2012 Overview: L5-S1 per x-ray 12/2007 -- right-sided sciatica Abdominal pain, epigastric 12/19/200805/31 Esophagitis, unspecified 12/19/2008 016 Old disruption of anterior cruciate ligament 05/31/2012 Superficial injury of hip, thigh, leg, and ankle 05/31/2012 Overview: ACL/MCL PARTIALLY TORN Abdominal pain, right lower quadrant 05/31/2012 documented as of this encounter (statuses as of 07/13/2022) [facility] History of Past illness Narrative* Problem Noted Date Resolved Date Episcleritis of left eye 10/22/2015 018 Counseling and coordination of care 08/23/2014 12/20/2014 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 Pruritus 09/29/2011 08/15/2015 Excoriation 09/29/2011 08/15/2015 Xerosis cutis 09/29/2011 08/15/2015 Adult attention deficit disorder 02/05/2010 05/31/2012 Lumbar disc narrowing 04/16/2009 05/31/2012 Overview: L5-S1 per x-ray 12/2007 -- right-sided sciatica Abdominal pain, epigastric 12/19/200805/31 Esophagitis, unspecified 12/19/2008 016 Old disruption of anterior cruciate ligament 05/31/2012 Superficial injury of hip, thigh, leg, and ankle 05/31/2012 Overview: ACL/MCL PARTIALLY TORN Abdominal pain, right lower quadrant 05/31/2012 documented as of this encounter (statuses as of 07/13/2022) [facility] History of Past illness Narrative* Problem Noted Date Resolved Date Episcleritis of left eye 10/22/2015 018 Counseling and coordination of care 08/23/2014 12/20/2014 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 Pruritus 09/29/2011 08/15/2015 Excoriation 09/29/2011 08/15/2015 Xerosis cutis 09/29/2011 08/15/2015 Adult attention deficit disorder 02/05/2010 05/31/2012 Lumbar disc narrowing 04/16/2009 05/31/2012 Overview: L5-S1 per x-ray 12/2007 -- right-sided sciatica Abdominal pain, epigastric 12/19/200805/31 Esophagitis, unspecified 12/19/2008 016 Old disruption of anterior cruciate ligament 05/31/2012 Superficial injury of hip, thigh, leg, and ankle 05/31/2012 Overview: ACL/MCL PARTIALLY TORN Abdominal pain, right lower quadrant 05/31/2012 documented as of this encounter (statuses as of 07/13/2022) [facility] History of Past illness Narrative* Problem Noted Date Resolved Date Episcleritis of left eye 10/22/2015 018 Counseling and coordination of care 08/23/2014 12/20/2014 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 Pruritus 09/29/2011 08/15/2015 Excoriation 09/29/2011 08/15/2015 Xerosis cutis 09/29/2011 08/15/2015 Adult attention deficit disorder 02/05/2010 05/31/2012 Lumbar disc narrowing 04/16/2009 05/31/2012 Overview: L5-S1 per x-ray 12/2007 -- right-sided sciatica Abdominal pain, epigastric 12/19/200805/31 Esophagitis, unspecified 12/19/2008 016 Old disruption of anterior cruciate ligament 05/31/2012 Superficial injury of hip, thigh, leg, and ankle 05/31/2012 Overview: ACL/MCL PARTIALLY TORN Abdominal pain, right lower quadrant 05/31/2012 documented as of this encounter (statuses as of 07/15/2022) [facility] History of Past illness Narrative* Problem Noted Date Resolved Date Episcleritis of left eye 10/22/2015 018 Counseling and coordination of care 08/23/2014 12/20/2014 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 Pruritus 09/29/2011 08/15/2015 Excoriation 09/29/2011 08/15/2015 Xerosis cutis 09/29/2011 08/15/2015 Adult attention deficit disorder 02/05/2010 05/31/2012 Lumbar disc narrowing 04/16/2009 05/31/2012 Overview: L5-S1 per x-ray 12/2007 -- right-sided sciatica Abdominal pain, epigastric 12/19/200805/31 Esophagitis, unspecified 12/19/2008 016 Old disruption of anterior cruciate ligament 05/31/2012 Superficial injury of hip, thigh, leg, and ankle 05/31/2012 Overview: ACL/MCL PARTIALLY TORN Abdominal pain, right lower quadrant 05/31/2012 documented as of this encounter (statuses as of 07/20/2022) [facility] History of Past illness Narrative* Problem Noted Date Resolved Date Episcleritis of left eye 10/22/2015 018 Counseling and coordination of care 08/23/2014 12/20/2014 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 Pruritus 09/29/2011 08/15/2015 Excoriation 09/29/2011 08/15/2015 Xerosis cutis 09/29/2011 08/15/2015 Adult attention deficit disorder 02/05/2010 05/31/2012 Lumbar disc narrowing 04/16/2009 05/31/2012 Overview: L5-S1 per x-ray 12/2007 -- right-sided sciatica Abdominal pain, epigastric 12/19/200805/31 Esophagitis, unspecified 12/19/2008 016 Old disruption of anterior cruciate ligament 05/31/2012 Superficial injury of hip, thigh, leg, and ankle 05/31/2012 Overview: ACL/MCL PARTIALLY TORN Abdominal pain, right lower quadrant 05/31/2012 documented as of this encounter (statuses as of 07/22/2022) [facility] History of Past illness Narrative* Problem Noted Date Resolved Date Episcleritis of left eye 10/22/2015 018 Counseling and coordination of care 08/23/2014 12/20/2014 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 Pruritus 09/29/2011 08/15/2015 Excoriation 09/29/2011 08/15/2015 Xerosis cutis 09/29/2011 08/15/2015 Adult attention deficit disorder 02/05/2010 05/31/2012 Lumbar disc narrowing 04/16/2009 05/31/2012 Overview: L5-S1 per x-ray 12/2007 -- right-sided sciatica Abdominal pain, epigastric 12/19/200805/31 Esophagitis, unspecified 12/19/2008 016 Old disruption of anterior cruciate ligament 05/31/2012 Superficial injury of hip, thigh, leg, and ankle 05/31/2012 Overview: ACL/MCL PARTIALLY TORN Abdominal pain, right lower quadrant 05/31/2012 documented as of this encounter (statuses as of 07/31/2022) [facility] History of Past illness Narrative* Problem Noted Date Resolved Date Episcleritis of left eye 10/22/2015 018 Counseling and coordination of care 08/23/2014 12/20/2014 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 Pruritus 09/29/2011 08/15/2015 Excoriation 09/29/2011 08/15/2015 Xerosis cutis 09/29/2011 08/15/2015 Adult attention deficit disorder 02/05/2010 05/31/2012 Lumbar disc narrowing 04/16/2009 05/31/2012 Overview: L5-S1 per x-ray 12/2007 -- right-sided sciatica Abdominal pain, epigastric 12/19/200805/31 Esophagitis, unspecified 12/19/2008 016 Old disruption of anterior cruciate ligament 05/31/2012 Superficial injury of hip, thigh, leg, and ankle 05/31/2012 Overview: ACL/MCL PARTIALLY TORN Abdominal pain, right lower quadrant 05/31/2012 documented as of this encounter (statuses as of 09/08/2022) [facility] History of Past illness Narrative* Problem Noted Date Resolved Date Episcleritis of left eye 10/22/2015 018 Counseling and coordination of care 08/23/2014 12/20/2014 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 Pruritus 09/29/2011 08/15/2015 Excoriation 09/29/2011 08/15/2015 Xerosis cutis 09/29/2011 08/15/2015 Adult attention deficit disorder 02/05/2010 05/31/2012 Lumbar disc narrowing 04/16/2009 05/31/2012 Overview: L5-S1 per x-ray 12/2007 -- right-sided sciatica Abdominal pain, epigastric 12/19/200805/31 Esophagitis, unspecified 12/19/2008 016 Old disruption of anterior cruciate ligament 05/31/2012 Superficial injury of hip, thigh, leg, and ankle 05/31/2012 Overview: ACL/MCL PARTIALLY TORN Abdominal pain, right lower quadrant 05/31/2012 documented as of this encounter (statuses as of 09/10/2022) [facility] History of Past illness Narrative* Problem Noted Date Resolved Date Episcleritis of left eye 10/22/2015 018 Counseling and coordination of care 08/23/2014 12/20/2014 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 Pruritus 09/29/2011 08/15/2015 Excoriation 09/29/2011 08/15/2015 Xerosis cutis 09/29/2011 08/15/2015 Adult attention deficit disorder 02/05/2010 05/31/2012 Lumbar disc narrowing 04/16/2009 05/31/2012 Overview: L5-S1 per x-ray 12/2007 -- right-sided sciatica Abdominal pain, epigastric 12/19/200805/31 Esophagitis, unspecified 12/19/2008 016 Old disruption of anterior cruciate ligament 05/31/2012 Superficial injury of hip, thigh, leg, and ankle 05/31/2012 Overview: ACL/MCL PARTIALLY TORN Abdominal pain, right lower quadrant 05/31/2012 documented as of this encounter (statuses as of 10/09/2022) [facility] History of Past illness Narrative* Problem Noted Date Diagnosed Date Resolved Date Episcleritis of left eye 10/22/2015 Counseling and coordination of care 08/23/2014 12/20/2014 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 Pruritus 09/29/2011 08/15/2015 Excoriation 09/29/2011 08/15/2015 Xerosis cutis 09/29/2011 08/15/2015 Adult attention deficit disorder 02/05/2010 05/31/2012 Lumbar disc narrowing 04/16/20092012 Overview: L5-S1 per x-ray 12/2007 -- right-sided sciatica Abdominal pain, epigastric 12/19/2008 0 05/31/2012 Esophagitis, unspecified 12/19/200808/2015 Old disruption of anterior cruciate ligament 5 05/31/2012 Superficial injury of hip, t high, leg, and ankle 05/31/2012 Overview: ACL/MCL PARTIALLY TORN Abdominal pain, right lower quadrant 05/31/2012 documented as of this encounter (statuses as of 10/23/2022) [facility] History of Past illness Narrative* Problem Noted Date Diagnosed Date Resolved Date Episcleritis of left eye 10/22/2015 Counseling and coordination of care 08/23/2014 12/20/2014 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 Pruritus 09/29/2011 08/15/2015 Excoriation 09/29/2011 08/15/2015 Xerosis cutis 09/29/2011 08/15/2015 Adult attention deficit disorder 02/05/2010 05/31/2012 Lumbar disc narrowing 04/16/20092012 Overview: L5-S1 per x-ray 12/2007 -- right-sided sciatica Abdominal pain, epigastric 12/19/2008 0 05/31/2012 Esophagitis, unspecified 12/19/200808/2015 Old disruption of anterior cruciate ligament 5 05/31/2012 Superficial injury of hip, t high, leg, and ankle 05/31/2012 Overview: ACL/MCL PARTIALLY TORN Abdominal pain, right lower quadrant 05/31/2012 documented as of this encounter (statuses as of 10/28/2022) [facility] History of Past illness Narrative* Problem Noted Date Diagnosed Date Resolved Date Episcleritis of left eye 10/22/2015 Counseling and coordination of care 08/23/2014 12/20/2014 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 Pruritus 09/29/2011 08/15/2015 Excoriation 09/29/2011 08/15/2015 Xerosis cutis 09/29/2011 08/15/2015 Adult attention deficit disorder 02/05/2010 05/31/2012 Lumbar disc narrowing 04/16/20092012 Overview: L5-S1 per x-ray 12/2007 -- right-sided sciatica Abdominal pain, epigastric 12/19/2008 0 05/31/2012 Esophagitis, unspecified 12/19/200808/2015 Old disruption of anterior cruciate ligament 5 05/31/2012 Superficial injury of hip, t high, leg, and ankle 05/31/2012 Overview: ACL/MCL PARTIALLY TORN Abdominal pain, right lower quadrant 05/31/2012 documented as of this encounter (statuses as of 12/05/2022) [facility] History of Past illness Narrative* Problem Noted Date Diagnosed Date Resolved Date Episcleritis of left eye 10/22/2015 Counseling and coordination of care 08/23/2014 12/20/2014 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 Pruritus 09/29/2011 08/15/2015 Excoriation 09/29/2011 08/15/2015 Xerosis cutis 09/29/2011 08/15/2015 Adult attention deficit disorder 02/05/2010 05/31/2012 Lumbar disc narrowing 04/16/20092012 Overview: L5-S1 per x-ray 12/2007 -- right-sided sciatica Abdominal pain, epigastric 12/19/2008 0 05/31/2012 Esophagitis, unspecified 12/19/200808/2015 Old disruption of anterior cruciate ligament 5 05/31/2012 Superficial injury of hip, t high, leg, and ankle 05/31/2012 Overview: ACL/MCL PARTIALLY TORN Abdominal pain, right lower quadrant 05/31/2012 documented as of this encounter (statuses as of 12/18/2022) [facility] History of Past illness Narrative* Problem Noted Date Diagnosed Date Resolved Date Episcleritis of left eye 10/22/2015 Counseling and coordination of care 08/23/2014 12/20/2014 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 Pruritus 09/29/2011 08/15/2015 Excoriation 09/29/2011 08/15/2015 Xerosis cutis 09/29/2011 08/15/2015 Adult attention deficit disorder 02/05/2010 05/31/2012 Lumbar disc narrowing 04/16/20092012 Overview: L5-S1 per x-ray 12/2007 -- right-sided sciatica Abdominal pain, epigastric 12/19/2008 0 05/31/2012 Esophagitis, unspecified 12/19/200808/2015 Old disruption of anterior cruciate ligament 5 05/31/2012 Superficial injury of hip, t high, leg, and ankle 05/31/2012 Overview: ACL/MCL PARTIALLY TORN Abdominal pain, right lower quadrant 05/31/2012 documented as of this encounter (statuses as of 12/18/2022) [facility] History of Past illness Narrative* Problem Noted Date Diagnosed Date Resolved Date Episcleritis of left eye 10/22/2015 Counseling and coordination of care 08/23/2014 12/20/2014 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 Pruritus 09/29/2011 08/15/2015 Excoriation 09/29/2011 08/15/2015 Xerosis cutis 09/29/2011 08/15/2015 Adult attention deficit disorder 02/05/2010 05/31/2012 Lumbar disc narrowing 04/16/20092012 Overview: L5-S1 per x-ray 12/2007 -- right-sided sciatica Abdominal pain, epigastric 12/19/2008 0 05/31/2012 Esophagitis, unspecified 12/19/200808/2015 Old disruption of anterior cruciate ligament 5 05/31/2012 Superficial injury of hip, t high, leg, and ankle 05/31/2012 Overview: ACL/MCL PARTIALLY TORN Abdominal pain, right lower quadrant 05/31/2012 documented as of this encounter (statuses as of 01/13/2023) [facility] Diagnosis Sprain of right rotator cuff capsule, initial encounter- [facility] Acute pain of right shoulder- Primary Snapping scapula syndrome of right shoulder [facility] Acute pain of right shoulder Snapping scapula syndrome of right shoulder [facility] Diagnosis Rotator cuff injury, right, subsequent encounter- Primary [facility] Diagnosis Snapping scapula syndrome of right shoulder- Primary Sprain of right rotator cuff capsule, initial encounter Acute pain of right shoulder [facility] Diagnosis Acute pain of right shoulder- Primary Snapping scapula syndrome of right shoulder [facility] Diagnosis Acute pain of right shoulder- Primary Snapping scapula syndrome of right shoulder [facility] Diagnosis Acute pain of right shoulder- Primary Snapping scapula syndrome of right shoulder [facility] Diagnosis Acute pain of right shoulder- Primary Snapping scapula syndrome of right shoulder [facility] Diagnosis Menopausal symptoms- Primary Symptomatic menopausal or female climacteric states Post-menopause on HRT (hormone replacement therapy) Need for prophylactic hormone replacement therapy (postmenopausal) [facility] Diagnosis Eczematous dermatitis Contact dermatitis and other eczema, due to unspecified cause [facility] Well adult exam- Primary Routine general medical examination at a health care facility Adjustment disorder with depressed mood Recurrent major depressive disorder, in partial remission (HCC) Obesity, Class II, BMI 35-39.9 Obesity, unspecified Need for vaccination Need for prophylactic vaccination and inoculation against unspecified single disease [facility] Diagnosis Arthritis of left knee- Primary Unspecified arthropathy, lower leg [facility] Diagnosis Arthritis of left knee- Primary Unspecified arthropathy, lower leg [facility] Diagnosis Arthritis of left knee- Primary Unspecified arthropathy, lower leg [facility] Diagnosis Arthritis of left knee- Primary Unspecified arthropathy, lower leg [facility] Diagnosis Arthritis of left knee- Primary Unspecified arthropathy, lower leg [facility] Diagnosis Primary osteoarthritis of left knee- Primary Primary localized osteoarthrosis, lower leg [facility] Diagnosis Arthritis of left knee- Primary Unspecified arthropathy, lower leg [facility] Diagnosis Recurrent major depressive disorder, in partial remission (HCC)- Primary Obesity, Class II, BMI 35-39.9 Obesity, unspecified Arthritis of left knee Unspecified arthropathy, lower leg [facility] Diagnosis Obesity, Class II, BMI 35-39.9 Obesity, unspecified [facility] Diagnosis Encounter for screening mammogram for malignant neoplasm of breast- Primary Other screening mammogram [facility] Diagnosis Lower resp. tract infection- Primary Other diseases of respiratory system, not elsewhere classified History of asthma Personal history of other diseases of respiratory system [facility] Cough [facility] Diagnosis Encounter for immunization- Primary Need for other specified prophylactic vaccination against single bacterial disease [facility] Diagnosis Persistent cough for 3 weeks or longer- Primary [facility] Diagnosis Inconclusive mammogram- Primary [facility] Diagnosis Gastroesophageal reflux disease without esophagitis- Primary Esophageal reflux Arthritis of left knee Unspecified arthropathy, lower leg Recurrent major depressive disorder, in partial remission (HCC) Acute pain of right shoulder Mild intermittent asthma without complication Unspecified asthma Encounter for screening for lipoid disorders Screening for lipoid disorders Screening for diabetes mellitus Screening, anemia, deficiency, iron Screening for iron deficiency anemia Screening for thyroid disorder Class 2 severe obesity with serious comorbidity and body mass index (BMI) of 39.0 to 39.9 in adult, unspecified obesity type (HCC) [facility] Diagnosis Arthritis of left knee- Primary Unspecified arthropathy, lower leg Lower resp. tract infection Other diseases of respiratory system, not elsewhere classified History of asthma Personal history of other diseases of respiratory system [facility] Diagnosis Recurrent major depressive disorder, in partial remission (HCC) Class 2 severe obesity with serious comorbidity and body mass index (BMI) of 39.0 to 39.9 in adult, unspecified obesity type (HCC) [facility] Diagnosis Recurrent major depressive disorder, in partial remission (HCC)- Primary Gastroesophageal reflux disease without esophagitis Esophageal reflux Arthritis of left knee Unspecified arthropathy, lower leg Class 2 severe obesity with serious comorbidity and body mass index (BMI) of 39.0 to 39.9 in adult, unspecified obesity type (HCC) [facility] Diagnosis Chronic pain of both knees- Primary Primary osteoarthritis of both knees Primary localized osteoarthrosis, lower leg [facility] Diagnosis Myopia, bilateral- Primary Myopia Presbyopia Regular astigmatism of both eyes Regular astigmatism Posterior subcapsular polar age-related cataract of both eyes Posterior subcapsular polar senile cataract [facility] Diagnosis Inconclusive mammogram [facility] Diagnosis Inconclusive mammogram [facility] Diagnosis Encounter for screening mammogram for malignant neoplasm of breast Other screening mammogram [facility] Diagnosis Primary osteoarthritis of left knee- Primary Primary localized osteoarthrosis, lower leg documented in this encounter [facility]* Diagnosis S/P total knee arthroplasty, left documented in this encounter [facility] note* Diagnosis S/P total knee arthroplasty, left- Primary documented in this encounter [facility] note* Diagnosis Primary osteoarthritis of left knee- Primary Primary localized osteoarthrosis, lower leg documented in this encounter [facility] note* Diagnosis S/P total knee arthroplasty, left- Primary documented in this encounter [facility] note* Diagnosis Primary osteoarthritis of left knee- Primary Primary localized osteoarthrosis, lower leg documented in this encounter [facility] note* Diagnosis S/P total knee arthroplasty, left- Primary documented in this encounter [facility] note* Diagnosis S/P total knee arthroplasty, left- Primary documented in this encounter [facility] note* Diagnosis S/P total knee arthroplasty, left- Primary documented in this encounter [facility] note* Diagnosis Screening mammogram for breast cancer- Primary documented in this encounter [facility] note* Diagnosis S/P total knee arthroplasty, left- Primary documented in this encounter [facility] note* Diagnosis S/P total knee arthroplasty, left- Primary documented in this encounter [facility] note* Diagnosis S/P total knee arthroplasty, left- Primary documented in this encounter [facility] note* Diagnosis S/P total knee arthroplasty, left- Primary documented in this encounter [facility] note* Diagnosis Aftercare following left knee joint replacement surgery- Primary documented in this encounter [facility] note* Diagnosis S/P total knee arthroplasty, left- Primary documented in this encounter [facility] note* Diagnosis Aftercare following left knee joint replacement surgery- Primary documented in this encounter [facility] note* Diagnosis Screening mammogram for breast cancer documented in this encounter [facility] note* Diagnosis S/P total knee arthroplasty, left- Primary documented in this encounter [facility] note* Diagnosis S/P total knee arthroplasty, left- Primary documented in this encounter [facility] note* Diagnosis Primary osteoarthritis of both knees- Primary Primary localized osteoarthrosis, lower leg Chronic pain of both knees Status post left knee replacement Scoliosis, unspecified scoliosis type, unspecified spinal region Muscle spasm of back Other symptoms referable to back Obesity, Class I, BMI 30-34.9 Obesity, unspecified Lipid screening Screening for lipoid disorders Encounter for therapeutic drug monitoring Immunity status testing Antibody response examination [facility] Diagnosis Aftercare following left knee joint replacement surgery- Primary [facility] Diagnosis Body aches- Primary Generalized pain Chills Chills (without fever) Sensation of fullness in left ear Other disorders of ear Throat irritation Other diseases of pharynx, not elsewhere classified Chest tightness Other chest pain Acute cough Persistent cough for 3 weeks or longer [facility] Diagnosis Primary osteoarthritis of both knees- Primary Primary localized osteoarthrosis, lower leg Chronic pain of both knees Obesity, Class II, BMI 35-39.9 Obesity, unspecified Increased nausea and vomiting Nausea with vomiting Irritable bowel syndrome with constipation Irritable bowel syndrome Hot flashes due to menopause Preoperative examination- Primary Preoperative examination, unspecified Mild intermittent asthma without complication Unspecified asthma Gastroesophageal reflux disease without esophagitis Esophageal reflux Other psoriasis Recurrent major depressive disorder, in partial remission (HCC) Obesity, Class II, BMI 35-39.9 Obesity, unspecified Anxiety Anxiety state, unspecified Myopia, bilateral- Primary Myopia Presbyopia Regular astigmatism of both eyes Regular astigmatism Posterior subcapsular polar age-related cataract of both eyes Posterior subcapsular polar senile cataract [facility] Diagnosis Primary osteoarthritis of both knees- Primary Primary localized osteoarthrosis, lower leg Chronic pain of both knees Obesity, Class II, BMI 35-39.9 Obesity, unspecified Increased nausea and vomiting Nausea with vomiting Irritable bowel syndrome with constipation Irritable bowel syndrome Hot flashes due to menopause Preoperative examination- Primary Preoperative examination, unspecified Mild intermittent asthma without complication Unspecified asthma Gastroesophageal reflux disease without esophagitis Esophageal reflux Other psoriasis Recurrent major depressive disorder, in partial remission (HCC) Obesity, Class II, BMI 35-39.9 Obesity, unspecified Anxiety Anxiety state, unspecified Left knee pain, unspecified chronicity [facility] Diagnosis Primary osteoarthritis of both knees- Primary Primary localized osteoarthrosis, lower leg Chronic pain of both knees Obesity, Class II, BMI 35-39.9 Obesity, unspecified Increased nausea and vomiting Nausea with vomiting Irritable bowel syndrome with constipation Irritable bowel syndrome Hot flashes due to menopause Preoperative examination- Primary Preoperative examination, unspecified Mild intermittent asthma without complication Unspecified asthma Gastroesophageal reflux disease without esophagitis Esophageal reflux Other psoriasis Recurrent major depressive disorder, in partial remission (HCC) Obesity, Class II, BMI 35-39.9 Obesity, unspecified Anxiety Anxiety state, unspecified Acute pain of left shoulder- Primary Acute left-sided thoracic back pain [facility] Diagnosis Primary osteoarthritis of both knees- Primary Primary localized osteoarthrosis, lower leg Chronic pain of both knees Obesity, Class II, BMI 35-39.9 Obesity, unspecified Increased nausea and vomiting Nausea with vomiting Irritable bowel syndrome with constipation Irritable bowel syndrome Hot flashes due to menopause Left knee pain, unspecified chronicity Preoperative examination- Primary Preoperative examination, unspecified Mild intermittent asthma without complication Unspecified asthma Gastroesophageal reflux disease without esophagitis Esophageal reflux Other psoriasis Recurrent major depressive disorder, in partial remission (HCC) Obesity, Class II, BMI 35-39.9 Obesity, unspecified Anxiety Anxiety state, unspecified documented in this encounter [facility] note* Diagnosis Chronic pain of left knee Pain in joint, lower leg Primary osteoarthritis of both knees- Primary Primary localized osteoarthrosis, lower leg Chronic pain of both knees Obesity, Class II, BMI 35-39.9 Obesity, unspecified Increased nausea and vomiting Nausea with vomiting Irritable bowel syndrome with constipation Irritable bowel syndrome Hot flashes due to menopause Preoperative examination- Primary Preoperative examination, unspecified Mild intermittent asthma without complication Unspecified asthma Gastroesophageal reflux disease without esophagitis Esophageal reflux Other psoriasis Recurrent major depressive disorder, in partial remission (HCC) Obesity, Class II, BMI 35-39.9 Obesity, unspecified Anxiety Anxiety state, unspecified documented in this encounter [facility] note* Diagnosis Primary osteoarthritis of both knees- Primary Primary localized osteoarthrosis, lower leg Chronic pain of both knees Obesity, Class II, BMI 35-39.9 Obesity, unspecified Increased nausea and vomiting Nausea with vomiting Irritable bowel syndrome with constipation Irritable bowel syndrome Hot flashes due to menopause Preoperative examination- Primary Preoperative examination, unspecified Mild intermittent asthma without complication Unspecified asthma Gastroesophageal reflux disease without esophagitis Esophageal reflux Other psoriasis Recurrent major depressive disorder, in partial remission (HCC) Obesity, Class II, BMI 35-39.9 Obesity, unspecified Anxiety Anxiety state, unspecified Left knee pain, unspecified chronicity [facility] Primary osteoarthritis of both knees- Primary Primary localized osteoarthrosis, lower leg Chronic pain of both knees Obesity, Class II, BMI 35-39.9 Obesity, unspecified Increased nausea and vomiting Nausea with vomiting Irritable bowel syndrome with constipation Irritable bowel syndrome Hot flashes due to menopause Preoperative examination- Primary Preoperative examination, unspecified Mild intermittent asthma without complication Unspecified asthma Gastroesophageal reflux disease without esophagitis Esophageal reflux Other psoriasis Recurrent major depressive disorder, in partial remission (HCC) Obesity, Class II, BMI 35-39.9 Obesity, unspecified Anxiety Anxiety state, unspecified Aftercare following left knee joint replacement surgery- Primary [facility] Diagnosis Primary osteoarthritis of both knees- Primary Primary localized osteoarthrosis, lower leg Chronic pain of both knees Obesity, Class II, BMI 35-39.9 Obesity, unspecified Increased nausea and vomiting Nausea with vomiting Irritable bowel syndrome with constipation Irritable bowel syndrome Hot flashes due to menopause Preoperative examination- Primary Preoperative examination, unspecified Mild intermittent asthma without complication Unspecified asthma Gastroesophageal reflux disease without esophagitis Esophageal reflux Other psoriasis Recurrent major depressive disorder, in partial remission (HCC) Obesity, Class II, BMI 35-39.9 Obesity, unspecified Anxiety Anxiety state, unspecified Upper respiratory tract infection, unspecified type- Primary [facility] Diagnosis Primary osteoarthritis of both knees- Primary Primary localized osteoarthrosis, lower leg Chronic pain of both knees Obesity, Class II, BMI 35-39.9 Obesity, unspecified Increased nausea and vomiting Nausea with vomiting Irritable bowel syndrome with constipation Irritable bowel syndrome Hot flashes due to menopause Preoperative examination- Primary Preoperative examination, unspecified Mild intermittent asthma without complication Unspecified asthma Gastroesophageal reflux disease without esophagitis Esophageal reflux Other psoriasis Recurrent major depressive disorder, in partial remission (HCC) Obesity, Class II, BMI 35-39.9 Obesity, unspecified Anxiety Anxiety state, unspecified Acute non-recurrent maxillary sinusitis- Primary [facility] Diagnosis Primary osteoarthritis of both knees- Primary Primary localized osteoarthrosis, lower leg Chronic pain of both knees Obesity, Class II, BMI 35-39.9 Obesity, unspecified Increased nausea and vomiting Nausea with vomiting Irritable bowel syndrome with constipation Irritable bowel syndrome Hot flashes due to menopause Preoperative examination- Primary Preoperative examination, unspecified Mild intermittent asthma without complication Unspecified asthma Gastroesophageal reflux disease without esophagitis Esophageal reflux Other psoriasis Recurrent major depressive disorder, in partial remission (HCC) Obesity, Class II, BMI 35-39.9 Obesity, unspecified Anxiety Anxiety state, unspecified Left knee pain, unspecified chronicity documented in this encounter [facility] note* Diagnosis Primary osteoarthritis of both knees- Primary Primary localized osteoarthrosis, lower leg Chronic pain of both knees Obesity, Class II, BMI 35-39.9 Obesity, unspecified Increased nausea and vomiting Nausea with vomiting Irritable bowel syndrome with constipation Irritable bowel syndrome Hot flashes due to menopause Preoperative examination- Primary Preoperative examination, unspecified Mild intermittent asthma without complication Unspecified asthma Gastroesophageal reflux disease without esophagitis Esophageal reflux Other psoriasis Recurrent major depressive disorder, in partial remission (HCC) Obesity, Class II, BMI 35-39.9 Obesity, unspecified Anxiety Anxiety state, unspecified Aftercare following left knee joint replacement surgery- Primary [facility] Diagnosis Primary osteoarthritis of both knees- Primary Primary localized osteoarthrosis, lower leg Chronic pain of both knees Obesity, Class II, BMI 35-39.9 Obesity, unspecified Increased nausea and vomiting Nausea with vomiting Irritable bowel syndrome with constipation Irritable bowel syndrome Hot flashes due to menopause Preoperative examination- Primary Preoperative examination, unspecified Mild intermittent asthma without complication (HCC) Unspecified asthma Gastroesophageal reflux disease without esophagitis Esophageal reflux Other psoriasis Recurrent major depressive disorder, in partial remission Obesity, Class II, BMI 35-39.9 Obesity, unspecified Anxiety Anxiety state, unspecified Encounter for screening mammogram for malignant neoplasm of breast- Primary Other screening mammogram [facility] Diagnosis Primary osteoarthritis of both knees- Primary Primary localized osteoarthrosis, lower leg Chronic pain of both knees Obesity, Class II, BMI 35-39.9 Obesity, unspecified Increased nausea and vomiting Nausea with vomiting Irritable bowel syndrome with constipation Irritable bowel syndrome Hot flashes due to menopause Preoperative examination- Primary Preoperative examination, unspecified Mild intermittent asthma without complication (HCC) Unspecified asthma Gastroesophageal reflux disease without esophagitis Esophageal reflux Other psoriasis Recurrent major depressive disorder, in partial remission Obesity, Class II, BMI 35-39.9 Obesity, unspecified Anxiety Anxiety state, unspecified Anxiety- Primary Anxiety state, unspecified Adjustment disorder with mixed anxiety and depressed mood Hot flashes due to menopause Elevated blood pressure reading without diagnosis of hypertension [facility] Diagnosis Primary osteoarthritis of both knees- Primary Primary localized osteoarthrosis, lower leg Chronic pain of both knees Obesity, Class II, BMI 35-39.9 Obesity, unspecified Increased nausea and vomiting Nausea with vomiting Irritable bowel syndrome with constipation Irritable bowel syndrome Hot flashes due to menopause Preoperative examination- Primary Preoperative examination, unspecified Mild intermittent asthma without complication (HCC) Unspecified asthma Gastroesophageal reflux disease without esophagitis Esophageal reflux Other psoriasis Recurrent major depressive disorder, in partial remission Obesity, Class II, BMI 35-39.9 Obesity, unspecified Anxiety Anxiety state, unspecified Encounter for screening mammogram for malignant neoplasm of breast Other screening mammogram [facility] Diagnosis Primary osteoarthritis of both knees- Primary Primary localized osteoarthrosis, lower leg Chronic pain of both knees Obesity, Class II, BMI 35-39.9 Obesity, unspecified Increased nausea and vomiting Nausea with vomiting Irritable bowel syndrome with constipation Irritable bowel syndrome Hot flashes due to menopause Preoperative examination- Primary Preoperative examination, unspecified Mild intermittent asthma without complication (HCC) Unspecified asthma Gastroesophageal reflux disease without esophagitis Esophageal reflux Other psoriasis Recurrent major depressive disorder, in partial remission Obesity, Class II, BMI 35-39.9 Obesity, unspecified Anxiety Anxiety state, unspecified Abnormal mammogram- Primary Abnormal mammogram, unspecified documented in this encounter [facility] note* Diagnosis Primary osteoarthritis of both knees- Primary Primary localized osteoarthrosis, lower leg Chronic pain of both knees Obesity, Class II, BMI 35-39.9 Obesity, unspecified Increased nausea and vomiting Nausea with vomiting Irritable bowel syndrome with constipation Irritable bowel syndrome Hot flashes due to menopause Preoperative examination- Primary Preoperative examination, unspecified Mild intermittent asthma without complication (HCC) Unspecified asthma Gastroesophageal reflux disease without esophagitis Esophageal reflux Other psoriasis Recurrent major depressive disorder, in partial remission Obesity, Class II, BMI 35-39.9 Obesity, unspecified Anxiety Anxiety state, unspecified Anxiety Anxiety state, unspecified Adjustment disorder with mixed anxiety and depressed mood documented in this encounter [facility] note* Diagnosis Primary osteoarthritis of both knees- Primary Primary localized osteoarthrosis, lower leg Chronic pain of both knees Obesity, Class II, BMI 35-39.9 Obesity, unspecified Increased nausea and vomiting Nausea with vomiting Irritable bowel syndrome with constipation Irritable bowel syndrome Hot flashes due to menopause Preoperative examination- Primary Preoperative examination, unspecified Mild intermittent asthma without complication (HCC) Unspecified asthma Gastroesophageal reflux disease without esophagitis Esophageal reflux Other psoriasis Recurrent major depressive disorder, in partial remission Obesity, Class II, BMI 35-39.9 Obesity, unspecified Anxiety Anxiety state, unspecified Anxiety Anxiety state, unspecified Adjustment disorder with mixed anxiety and depressed mood documented in this encounter [facility] note* Diagnosis Primary osteoarthritis of both knees- Primary Primary localized osteoarthrosis, lower leg Chronic pain of both knees Obesity, Class II, BMI 35-39.9 Obesity, unspecified Increased nausea and vomiting Nausea with vomiting Irritable bowel syndrome with constipation Irritable bowel syndrome Hot flashes due to menopause Preoperative examination- Primary Preoperative examination, unspecified Mild intermittent asthma without complication (HCC) Unspecified asthma Gastroesophageal reflux disease without esophagitis Esophageal reflux Other psoriasis Recurrent major depressive disorder, in partial remission Obesity, Class II, BMI 35-39.9 Obesity, unspecified Anxiety Anxiety state, unspecified Abnormal mammogram Abnormal mammogram, unspecified documented in this encounter [facility] note* Diagnosis Primary osteoarthritis of both knees- Primary Primary localized osteoarthrosis, lower leg Chronic pain of both knees Obesity, Class II, BMI 35-39.9 Obesity, unspecified Increased nausea and vomiting Nausea with vomiting Irritable bowel syndrome with constipation Irritable bowel syndrome Hot flashes due to menopause Preoperative examination- Primary Preoperative examination, unspecified Mild intermittent asthma without complication (HCC) Unspecified asthma Gastroesophageal reflux disease without esophagitis Esophageal reflux Other psoriasis Recurrent major depressive disorder, in partial remission Obesity, Class II, BMI 35-39.9 Obesity, unspecified Anxiety Anxiety state, unspecified Abnormal mammogram Abnormal mammogram, unspecified documented in this encounter [facility]* Diagnosis Primary osteoarthritis of both knees- Primary Primary localized osteoarthrosis, lower leg Chronic pain of both knees Obesity, Class II, BMI 35-39.9 Obesity, unspecified Increased nausea and vomiting Nausea with vomiting Irritable bowel syndrome with constipation Irritable bowel syndrome Hot flashes due to menopause Preoperative examination- Primary Preoperative examination, unspecified Mild intermittent asthma without complication (HCC) Unspecified asthma Gastroesophageal reflux disease without esophagitis Esophageal reflux Other psoriasis Recurrent major depressive disorder, in partial remission Obesity, Class II, BMI 35-39.9 Obesity, unspecified Anxiety Anxiety state, unspecified Myopia, bilateral- Primary Myopia Presbyopia Regular astigmatism of both eyes Regular astigmatism [facility] Visit Details Visit Type -PT SOC Discipline -Physical Therapy Problems Problem Description Start Date Status Goals Interve ntions Medication Education Disciplines: Skilled Services 05/13/2023 Active 1 goal linked to scheduled/documen ade intervention 1 goal intervention scheduled/document ed in this visit Sepsis Disciplines: Skilled Services 05/13/2023 Resolved on 05/13/2023 1 goal linked to scheduled/documen ade intervention 1 goal intervention scheduled/document ed in this visit Physician Specific Parameters Disciplines: Skilled Services 05/13/2023 Active 1 goal linked to scheduled/documen ade intervention 1 goal intervention scheduled/document ed in this visit Risk for Falls Disciplines: Skilled Services 05/13/2023 Active 1 goal linked to scheduled/documen ade intervention 1 goal intervention scheduled/document ed in this visit Pain Disciplines: Skilled Services 05/13/2023 Active 1 goal linked to scheduled/documen ade intervention 1 goal intervention scheduled/document ed in this visit High Risk Medications Disciplines: Skilled Services 05/13/2023 Resolved on 05/13/2023 1 goal linked to scheduled/documen ade intervention 2 goal interventions scheduled/document ed in this visit Advance Directives Disciplines: Skilled Services 05/13/2023 Resolved on 05/13/2023 1 goal linked to scheduled/documen ade intervention 1 goal intervention scheduled/document ed in this visit PT Impaired muscle performance and/or ROM Disciplines: PT 05/13/2023 Active 1 goal linked to scheduled/documen ade intervention 1 goal intervention scheduled/document ed in this visit PT Orthopedic Condition Disciplines: PT 05/13/2023 Active 1 goal linked to scheduled/documen ade intervention 3 goal interventions scheduled/document ed in this visit Goals Goal Associated Problem Outcome Goal Met? Visit Notes Patient/caregiver will demonstrate ability to obtain, store, identify and administer ordered medications, keep accurate medication list in home, and adhere to medication schedule Description: Patient/caregiver will demonstrate ability to obtain, store, identify and administer ordered medications, keep accurate medication list in home, and adhere to medication schedule by 07/11/23. Medication Education No Patient/caregiver will be able to identify and report symptoms of sepsis Description: Patient/caregiver will be able to identify signs/symptoms of sepsis infection and will verbalize actions to take if suspected by 07/11/23. . Sepsis Completed Yes Patient to maintain parameters within physician-specified ranges throughout certification period Physician Specific Parameters No Manage Risk for falls Description: Patient/caregiver will verbalize knowledge of individualized fall prevention strategies by 07/11/23. . Risk for Falls No Manage Pain Description: Patient/caregiver will verbalize knowledge and understanding of appropriate techniques to control pain, including pain medication and non-pharmacological techniques. Patient will verbalize or demonstrate an acceptable level of pain as evidenced by a pain score of <5/10 and improvement in ability to perform activities of daily living to be achieved by 07/11/23. . Pain No Patient/caregiver will teach back high risk medication side effect and precaution education High Risk Medications Completed Yes Patient/caregiver will make healthcare providers aware of and any changes to Advance Directives throughout certification period Advance Directives Completed Yes Improved Muscle Performance and/or ROM Description: LTG: Patient will demonstrate improved muscle performance to meet functional goals as evidenced by ability to tolerate 8-10 minutes of standing activity, to be achieved by 05/29/23. . STG: Patient and/or caregiver will verbalize/demonstrate independence with home exercise program, to improve functional mobility, to be achieved by 05/22/23. LTG: Patient will demonstrate improved left knee active range of motion to 0-85 degrees, to meet functional goals, to be achieved by 05/29/23. . PT Impaired muscle performance and/or ROM No Manage Orthopedic Condition Description: Improve patient and/or caregiver understanding of post surgical and/or non-surgical orthopedic intervention management as evidenced by patient and/or caregiver able to verbalize, demonstrate, and teach back instruction, to be achieved by 05/29/23. . PT Orthopedic Condition No Interventions Intervention Associated Problem/Goal Status Variance Visit Notes Medication Education Description: Evaluate/instruct patient/caregiver on obtaining, storing, identifying and administering ordered medications as well as keeping accurate medication list in the home and adhereing to medication schedule Problem:Medication Education Goal:Patient/caregive r will demonstrate ability to obtain, store, identify and administer ordered medications, keep accurate medication list in home, and adhere to medication schedule Completed Patient instructed on importance of keeping accurate medication list in home, need to take up-to-date medication list to all medical provider appointments and adhering to medication schedule. Risk of Sepsis Description: Patient is at risk for sepsis. Monitor closely for s/s of sepsis. Problem:Sepsis Goal:Patient/caregive r will be able to identify and report symptoms of sepsis Completed SPO2 Description: Notify Dr. Zambrano if pulse ox is <92% at rest. Problem:Physician Specific Parameters Goal:Patient to maintain parameters within physician-specified ranges throughout certification period Completed Instruct on individual fall risk factors and strategies to prevent falls and injuries caused by falls. Problem:Risk for Falls Goal:Manage Risk for falls Completed PT: Patient instructed on Eliminating Environmental Hazards: Keep pathways clear, Keep pets out of pathways, Remove unsafe rugs, Move furniture from pathways and Wear supportive shoes or non-skid socks Managing Impaired Functional Mobility: Use assistive device(s): front wheeled walker Managing Pain Instruct on pain and instruct on strategies to control pain Problem:Pain Goal:Manage Pain Completed patient instructed on techniques to control pain including Pharmacological measures and Non-Pharmacological measures; rest, positioning/elevation and use of thermal modalities, apply ice to affected area. Opioids- educated on high risk medication Problem:High Risk Medications Goal:Patient/caregive r will teach back high risk medication side effect and precaution education Completed patient educated on taking medication(s) as prescribed by provider. Do not stop medication or alter doses without speaking with your provider. Discuss medication effectiveness or side effect concerns with your provider and home care team. Only take opioids as prescribed, do not share your medications, and take proper precautions in storing and properly disposing of opioids once no longer needed. Possible side effects of opioid medication including sedation, decreased rate of breathing, and constipation. Report over sedation to prescribing provider and practice deep breathing techniques every hour while awake. Prevent constipation by increasing water and fiber intake, increasing activity as tolerated, and use stool softener(s) as prescribed. Antiplatelet- educated on high risk medication Problem:High Risk Medications Goal:Patient/caregive r will teach back high risk medication side effect and precaution education Completed patient educated on taking medication(s) as prescribed by provider. Do not stop medication or alter doses without speaking with your provider. Discuss medication effectiveness or side effect concerns with your provider and home care team. Discuss all medications you are taking, even [id number] medicines, with your provider and pharmacist since many drugs can interact with antiplatelet medications. If you forget to take a dose, DO NOT take a double dose. Take the missed dose as soon as possible on the same day. DO NOT take a double dose the next day to make up for the missed dose. Watch for signs of abnormal or excessive bleeding and bruising (refer to Bleeding Precautions education). Call your health care provider right away if you suspect something is wrong. Determine patient's Advance Directive Status Description: Patient does have advance directives. Patient's Advance Directives determined to be available in Home Healthcare DPOA and Living Will. Problem:Advance Directives Goal:Patient/caregive r will make healthcare providers aware of and any changes to Advance Directives throughout certification period Completed Discussed Advance Directives with Patient and/or Caregiver. Referred patient to Home Care handbook for further information on Healthcare DPOA & Living Will. Physical Therapy Therapeutic Exercises Problem:PT Impaired muscle performance and/or ROM Goal:Improved Muscle Performance and/or ROM Completed patient instructed on strengthening and range of motion exercises including Supine : GS,QS,HS, HIPADD, HIP ABD, HEEL SLIDES, SAQ, X 10 supine passive knee ext x 1 min 15 sec seated knee flexion to tolerance - 62* with verbal, tactile, visual and written cues for technique . patient instructed to perform home exercise program twice a day which included hourly ambulation . Instruct on orthopedic precautions and weight bearing restrictions Description: Orthopedic precautions including left total knee: no crossing legs, no knee flexed over pillow at rest, no kneeling, no squatting and no twisting. Weight bearing restrictions include: WBAT of involved extremity. Problem:PT Orthopedic Condition Goal:Manage Orthopedic Condition Completed patient instructed on orthopedic precautions and weight bearing restrictions. Instruct on management of edema Problem:PT Orthopedic Condition Goal:Manage Orthopedic Condition Completed Instruct patient on management of edema including elevation of LLE above the level of the heart and ice. Instruct on self-management of post surgical and/or non-surgical orthopedic intervention Problem:PT Orthopedic Condition Goal:Manage Orthopedic Condition Completed patient instructed on managagement of orthopedic condition, eating foods with high protein, signs and symptoms of infection and signs and symptoms of DVT/PE. 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 Problems Problem Description Start Date Status Goals Interve ntions Medication Education Disciplines: Skilled Services 05/13/2023 Active 1 goal linked to scheduled/document ed intervention 1 goal intervention scheduled/document ed in this visit Physician Specific Parameters Disciplines: Skilled Services 05/13/2023 Active 1 goal linked to scheduled/document ed intervention 1 goal intervention scheduled/document ed in this visit Risk for Falls Disciplines: Skilled Services 05/13/2023 Active 1 goal linked to scheduled/document ed intervention 1 goal intervention scheduled/document ed in this visit Pain Disciplines: Skilled Services 05/13/2023 Active 1 goal linked to scheduled/document ed intervention 1 goal intervention scheduled/document ed in this visit Discharge Disciplines: Skilled Services 05/13/2023 Active 1 goal linked to scheduled/document ed intervention 1 goal intervention scheduled/document ed in this visit PT Impaired muscle performance and/or ROM Disciplines: PT 05/13/2023 Active 1 goal linked to scheduled/document ed intervention 1 goal intervention scheduled/document ed in this visit PT Impaired mobility Disciplines: PT 05/13/2023 Active 1 goal linked to scheduled/document ed intervention 1 goal intervention scheduled/document ed in this visit PT Impaired gait Disciplines: PT 05/13/2023 Active 1 goal linked to scheduled/document ed intervention 1 goal intervention scheduled/document ed in this visit PT Orthopedic Condition Disciplines: PT 05/13/2023 Active 1 goal linked to scheduled/document ed intervention 3 goal interventions scheduled/document ed in this visit PT Learning Assessment Disciplines: PT 05/13/2023 Active 1 goal linked to scheduled/document ed intervention 1 goal intervention scheduled/document ed in this visit Goals Goal Associated Problem Outcome Goal Met? Visit Notes Patient/caregiver will demonstrate ability to obtain, store, identify and administer ordered medications, keep accurate medication list in home, and adhere to medication schedule Description: Patient/caregiver will demonstrate ability to obtain, store, identify and administer ordered medications, keep accurate medication list in home, and adhere to medication schedule by 07/11/23. Medication Education No Patient to maintain parameters within physician-specified ranges throughout certification period Physician Specific Parameters No Manage Risk for falls Description: Patient/caregiver will verbalize knowledge of individualized fall prevention strategies by 07/11/23. . Risk for Falls No Manage Pain Description: Patient/caregiver will verbalize knowledge and understanding of appropriate techniques to control pain, including pain medication and non-pharmacological techniques. Patient will verbalize or demonstrate an acceptable level of pain as evidenced by a pain score of <5/10 and improvement in ability to perform activities of daily living to be achieved by 07/11/23. . Pain No Manage discharge planning Description: Patient/caregiver will verbalize understanding of ongoing discharge plan provided related to disease management, arrangements for outpatient and/or community services, obtaining medications, supplies, and DME, as needed throughout certification period. Discharge No Improved Muscle Performance and/or ROM Description: LTG: Patient will demonstrate improved muscle performance to meet functional goals as evidenced by ability to tolerate 8-10 minutes of standing activity, to be achieved by 05/29/23. . STG: Patient and/or caregiver will verbalize/demonstrate independence with home exercise program, to improve functional mobility, to be achieved by 05/22/23. LTG: Patient will demonstrate improved left knee active range of motion to 0-85 degrees, to meet functional goals, to be achieved by 05/29/23. . PT Impaired muscle performance and/or ROM No Improved Transfers Description: LTG: Patient will demonstrate safe transfers to/from bed, chair, toilet, shower/tub and car independently with AD, to be achieved by 05/29/23. . PT Impaired mobility No Improved Gait Description: LTG: Patient will demonstrate improved gait ability as evidenced by ambulation 150 feet with front wheeled walker independently with AD, to return to safe household and community ambulation, in order to transition to OP PT , to be achieved by 05/29/23. . PT Impaired gait No Manage Orthopedic Condition Description: Improve patient and/or caregiver understanding of post surgical and/or non-surgical orthopedic intervention management as evidenced by patient and/or caregiver able to verbalize, demonstrate, and teach back instruction, to be achieved by 05/29/23. . PT Orthopedic Condition No Demonstrate understanding of education Description: Patient and/or caregiver will understand educational instruction to be achieved by 05/29/23. . PT Learning Assessment No Interventions Intervention Associated Problem/Goal Status Variance Visit Notes Medication Education Description: Evaluate/instruct patient/caregiver on obtaining, storing, identifying and administering ordered medications as well as keeping accurate medication list in the home and adhereing to medication schedule Problem:Medication Education Goal:Patient/caregive r will demonstrate ability to obtain, store, identify and administer ordered medications, keep accurate medication list in home, and adhere to medication schedule Completed Patient instructed on importance of keeping accurate medication list in home, need to take up-to-date medication list to all medical provider appointments, adhering to medication schedule and proper storage of medications. SPO2 Description: Notify Dr. Zambrano if pulse ox is <92% at rest. Problem:Physician Specific Parameters Goal:Patient to maintain parameters within physician-specified ranges throughout certification period Completed Instruct on individual fall risk factors and strategies to prevent falls and injuries caused by falls. Problem:Risk for Falls Goal:Manage Risk for falls Completed PT: Patient instructed on Eliminating Environmental Hazards: Keep pathways clear, Keep pets out of pathways, Keep rooms and walkways well lit and Wear supportive shoes or non-skid socks Managing Impaired Functional Mobility: Use assistive device(s): front wheeled walker Managing Pain Instruct on pain and instruct on strategies to control pain Problem:Pain Goal:Manage Pain Completed patient instructed on techniques to control pain including Pharmacological measures and Non-Pharmacological measures; rest, positioning/elevation, mobility/therapeutic exercise, use of DME/assistive devices and use of thermal modalities, apply ice to affected area for the following prescribed frequency: 10-20 minutes, 3-5 times daily Instruct on ongoing discharge plan Problem:Discharge Goal:Manage discharge planning Completed Ongoing Discharge plan: Discharge plan discussed with patient including frequency and duration for home PT and plan for transition to: outpatient therapy. Physical Therapy Therapeutic Exercises Problem:PT Impaired muscle performance and/or ROM Goal:Improved Muscle Performance and/or ROM Completed patient instructed on strengthening and range of motion exercises including supine AP, GS, QS, SAQ, heel slides, knee ext stretch with foot on roll x 10 reps. Seated knee flx stretch x 10 reps with verbal, tactile, visual and written cues for proper range and speed. patient instructed to perform home exercise program three times a day which included listed ex. Physical Therapy Transfer Training Problem:PT Impaired mobility Goal:Improved Transfers Completed Transfer training and instruction to patient on safe transfers to and from bed and chair with stand by assist and verbal cues for sequence and positioning. Patient uses a towel to assist (L) LE with sit to/from supine transfers. Training on the following adaptive equipment/durable medical equipment: walker. Physical Therapy Gait Training Problem:PT Impaired gait Goal:Improved Gait Completed Gait training and instruction to patient on safe ambulation with front wheeled walker for 2 x 50 feet with stand by assist, with verbal cues for corrections of gait deviations including decreased left step length, decreased (L) knee flx on swing through. Instruct on orthopedic precautions and weight bearing restrictions Description: Orthopedic precautions including left total knee: no crossing legs, no knee flexed over pillow at rest, no kneeling, no squatting and no twisting. Weight bearing restrictions include: WBAT of involved extremity. Problem:PT Orthopedic Condition Goal:Manage Orthopedic Condition Completed patient instructed on orthopedic precautions. Instruct on management of edema Problem:PT Orthopedic Condition Goal:Manage Orthopedic Condition Completed Instruct patient on management of edema including elevation of (L) LE above the level of the heart, ice, medication adherence strategies and benefits of activity. Instruct on self-management of post surgical and/or non-surgical orthopedic intervention Problem:PT Orthopedic Condition Goal:Manage Orthopedic Condition Completed patient instructed on managagement of orthopedic condition, signs and symptoms of infection, signs and symptoms of DVT/PE and instructed on when to call provider. Instruct and educate on knowledge deficits Problem:PT Learning Assessment Goal:Demonstrate understanding of education Completed patient verbalize and/or demonstrate understanding of physical therapy education including orthopedic condition management, surgical precautions, pain management, fall prevention strategies and home safety. Education methods include: verbal cues, tactile cues, written instructions, visual cues and teach back. Further education required to improve knowledge and compliance with integumentary and incision/wound care management, infection control precautions, functional activity and home exercise program. 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 Problems Problem Description Start Date Status Goals Interve ntions Medication Education Disciplines: Skilled Services 05/13/2023 Active 1 goal linked to scheduled/document ed intervention 1 goal intervention scheduled/document ed in this visit Physician Specific Parameters Disciplines: Skilled Services 05/13/2023 Active 1 goal linked to scheduled/document ed intervention 1 goal intervention scheduled/document ed in this visit Risk for Falls Disciplines: Skilled Services 05/13/2023 Active 1 goal linked to scheduled/document ed intervention 1 goal intervention scheduled/document ed in this visit Pain Disciplines: Skilled Services 05/13/2023 Active 1 goal linked to scheduled/document ed intervention 1 goal intervention scheduled/document ed in this visit Discharge Disciplines: Skilled Services 05/13/2023 Active 1 goal linked to scheduled/document ed intervention 1 goal intervention scheduled/document ed in this visit PT Impaired muscle performance and/or ROM Disciplines: PT 05/13/2023 Active 1 goal linked to scheduled/document ed intervention 1 goal intervention scheduled/document ed in this visit PT Impaired gait Disciplines: PT 05/13/2023 Active 1 goal linked to scheduled/document ed intervention 1 goal intervention scheduled/document ed in this visit PT Orthopedic Condition Disciplines: PT 05/13/2023 Active 1 goal linked to scheduled/document ed intervention 4 goal interventions scheduled/document ed in this visit PT Learning Assessment Disciplines: PT 05/13/2023 Active 1 goal linked to scheduled/document ed intervention 1 goal intervention scheduled/document ed in this visit Goals Goal Associated Problem Outcome Goal Met? Visit Notes Patient/caregiver will demonstrate ability to obtain, store, identify and administer ordered medications, keep accurate medication list in home, and adhere to medication schedule Description: Patient/caregiver will demonstrate ability to obtain, store, identify and administer ordered medications, keep accurate medication list in home, and adhere to medication schedule by 07/11/23. Medication Education No Patient to maintain parameters within physician-specified ranges throughout certification period Physician Specific Parameters No Manage Risk for falls Description: Patient/caregiver will verbalize knowledge of individualized fall prevention strategies by 07/11/23. . Risk for Falls No Manage Pain Description: Patient/caregiver will verbalize knowledge and understanding of appropriate techniques to control pain, including pain medication and non-pharmacological techniques. Patient will verbalize or demonstrate an acceptable level of pain as evidenced by a pain score of <5/10 and improvement in ability to perform activities of daily living to be achieved by 07/11/23. . Pain No Manage discharge planning Description: Patient/caregiver will verbalize understanding of ongoing discharge plan provided related to disease management, arrangements for outpatient and/or community services, obtaining medications, supplies, and DME, as needed throughout certification period. Discharge No Improved Muscle Performance and/or ROM Description: LTG: Patient will demonstrate improved muscle performance to meet functional goals as evidenced by ability to tolerate 8-10 minutes of standing activity, to be achieved by 05/29/23. . STG: Patient and/or caregiver will verbalize/demonstrate independence with home exercise program, to improve functional mobility, to be achieved by 05/22/23. LTG: Patient will demonstrate improved left knee active range of motion to 0-85 degrees, to meet functional goals, to be achieved by 05/29/23. . PT Impaired muscle performance and/or ROM No Improved Gait Description: LTG: Patient will demonstrate improved gait ability as evidenced by ambulation 150 feet with front wheeled walker independently with AD, to return to safe household and community ambulation, in order to transition to OP PT , to be achieved by 05/29/23. . PT Impaired gait No Manage Orthopedic Condition Description: Improve patient and/or caregiver understanding of post surgical and/or non-surgical orthopedic intervention management as evidenced by patient and/or caregiver able to verbalize, demonstrate, and teach back instruction, to be achieved by 05/29/23. . PT Orthopedic Condition No Demonstrate understanding of education Description: Patient and/or caregiver will understand educational instruction to be achieved by 05/29/23. . PT Learning Assessment No Interventions Intervention Associated Problem/Goal Status Variance Visit Notes Medication Education Description: Evaluate/instruct patient/caregiver on obtaining, storing, identifying and administering ordered medications as well as keeping accurate medication list in the home and adhereing to medication schedule Problem:Medication Education Goal:Patient/caregive r will demonstrate ability to obtain, store, identify and administer ordered medications, keep accurate medication list in home, and adhere to medication schedule Completed Patient and Caregiver instructed on importance of keeping accurate medication list in home and need to take up-to-date medication list to all medical provider appointments. SPO2 Description: Notify Dr. Zambrano if pulse ox is <92% at rest. Problem:Physician Specific Parameters Goal:Patient to maintain parameters within physician-specified ranges throughout certification period Completed Instruct on individual fall risk factors and strategies to prevent falls and injuries caused by falls. Problem:Risk for Falls Goal:Manage Risk for falls Completed PT: Patient instructed on Managing Impaired Functional Mobility: Use assistive device(s): front wheeled walker Managing Pain Instruct on pain and instruct on strategies to control pain Problem:Pain Goal:Manage Pain Completed patient instructed on techniques to control pain including Pharmacological measures and Non-Pharmacological measures; positioning/elevation and use of thermal modalities, apply ice to affected area for the following prescribed frequency: prn. Instruct on ongoing discharge plan Problem:Discharge Goal:Manage discharge planning Completed Ongoing Discharge plan: Discharge plan discussed with patient including frequency and duration for home PT and plan for transition to: outpatient therapy. Physical Therapy Therapeutic Exercises Problem:PT Impaired muscle performance and/or ROM Goal:Improved Muscle Performance and/or ROM Completed patient instructed on strengthening and range of motion exercises including ankle pumps, quad and glut sets, hip abd w/ assist, add, saq w/ manual assist and heel slides x's 10 each supine ext hangs x's3min. seated heel slides x's 10 with verbal, tactile and visual cues for correct form. patient instructed to perform home exercise program twice a day which included above ex. Physical Therapy Gait Training Problem:PT Impaired gait Goal:Improved Gait Completed Gait training and instruction to patient on safe ambulation with front wheeled walker for 2x's 40 feet with stand by assist, with verbal and visual cues for corrections of gait deviations including heel to toe and increased step length. Instruct on orthopedic precautions and weight bearing restrictions Description: Orthopedic precautions including left total knee: no crossing legs, no knee flexed over pillow at rest, no kneeling, no squatting and no twisting. Weight bearing restrictions include: WBAT of involved extremity. Problem:PT Orthopedic Condition Goal:Manage Orthopedic Condition Completed patient instructed on orthopedic precautions. Instruct on management of edema Problem:PT Orthopedic Condition Goal:Manage Orthopedic Condition Completed Instruct patient on management of edema including elevation of LLE above the level of the heart and ice. Physical therapy to perform surgical incision/wound management Description: Removal of post-op dressing on POD 7-10( 2/5-8). If no drainage is present, leave open to air; if drainage is present, cover with clean dressing and contact provider. Problem:PT Orthopedic Condition Goal:Manage Orthopedic Condition Completed Intervention completed this date. With patients consent, picture obtained and uploaded to chart. No concerns Instruct on self-management of post surgical and/or non-surgical orthopedic intervention Problem:PT Orthopedic Condition Goal:Manage Orthopedic Condition Completed patient instructed on incision care: no lotions,creams or rubbing, signs and symptoms of infection, signs and symptoms of DVT/PE, instructed on when to call provider and instructed on when to call 911. Instruct and educate on knowledge deficits Problem:PT Learning Assessment Goal:Demonstrate understanding of education Completed patient verbalize and/or demonstrate understanding of physical therapy education including pain management and home exercise program. Education methods include: verbal cues. Further education required to improve knowledge and compliance with home exercise program. 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 Problems Problem Description Start Date Status Goals Interve ntions Medication Education Disciplines: Skilled Services 05/13/2023 Active 1 goal linked to scheduled/document ed intervention 1 goal intervention scheduled/document ed in this visit Physician Specific Parameters Disciplines: Skilled Services 05/13/2023 Active 1 goal linked to scheduled/document ed intervention 1 goal intervention scheduled/document ed in this visit Risk for Falls Disciplines: Skilled Services 05/13/2023 Active 1 goal linked to scheduled/document ed intervention 1 goal intervention scheduled/document ed in this visit Discharge Disciplines: Skilled Services 05/13/2023 Active 1 goal linked to scheduled/document ed intervention 1 goal intervention scheduled/document ed in this visit PT Impaired muscle performance and/or ROM Disciplines: PT 05/13/2023 Active 1 goal linked to scheduled/document ed intervention 1 goal intervention scheduled/document ed in this visit PT Impaired gait Disciplines: PT 05/13/2023 Active 1 goal linked to scheduled/document ed intervention 1 goal intervention scheduled/document ed in this visit PT Impaired balance Disciplines: PT 05/13/2023 Active 1 goal linked to scheduled/document ed intervention 1 goal intervention scheduled/document ed in this visit PT Orthopedic Condition Disciplines: PT 05/13/2023 Active 1 goal linked to scheduled/document ed intervention 2 goal interventions scheduled/document ed in this visit PT Learning Assessment Disciplines: PT 05/13/2023 Active 1 goal linked to scheduled/document ed intervention 1 goal intervention scheduled/document ed in this visit Goals Goal Associated Problem Outcome Goal Met? Visit Notes Patient/caregiver will demonstrate ability to obtain, store, identify and administer ordered medications, keep accurate medication list in home, and adhere to medication schedule Description: Patient/caregiver will demonstrate ability to obtain, store, identify and administer ordered medications, keep accurate medication list in home, and adhere to medication schedule by 07/11/23. Medication Education No Patient to maintain parameters within physician-specified ranges throughout certification period Physician Specific Parameters No Manage Risk for falls Description: Patient/caregiver will verbalize knowledge of individualized fall prevention strategies by 07/11/23. . Risk for Falls No Manage discharge planning Description: Patient/caregiver will verbalize understanding of ongoing discharge plan provided related to disease management, arrangements for outpatient and/or community services, obtaining medications, supplies, and DME, as needed throughout certification period. Discharge No Improved Muscle Performance and/or ROM Description: LTG: Patient will demonstrate improved muscle performance to meet functional goals as evidenced by ability to tolerate 8-10 minutes of standing activity, to be achieved by 05/29/23. . STG: Patient and/or caregiver will verbalize/demonstrate independence with home exercise program, to improve functional mobility, to be achieved by 05/22/23. LTG: Patient will demonstrate improved left knee active range of motion to 0-85 degrees, to meet functional goals, to be achieved by 05/29/23. . PT Impaired muscle performance and/or ROM No Improved Gait Description: LTG: Patient will demonstrate improved gait ability as evidenced by ambulation 150 feet with front wheeled walker independently with AD, to return to safe household and community ambulation, in order to transition to OP PT , to be achieved by 05/29/23. . PT Impaired gait No Improved Balance Description: LTG: Patient will demonstrate improved standing balance to meet functional goals as evidenced by TUG score of <28 to be achieved by 05/29/23. PT Impaired balance No Manage Orthopedic Condition Description: Improve patient and/or caregiver understanding of post surgical and/or non-surgical orthopedic intervention management as evidenced by patient and/or caregiver able to verbalize, demonstrate, and teach back instruction, to be achieved by 05/29/23. . PT Orthopedic Condition No Demonstrate understanding of education Description: Patient and/or caregiver will understand educational instruction to be achieved by 05/29/23. . PT Learning Assessment No Interventions Intervention Associated Problem/Goal Status Variance Visit Notes Medication Education Description: Evaluate/instruct patient/caregiver on obtaining, storing, identifying and administering ordered medications as well as keeping accurate medication list in the home and adhereing to medication schedule Problem:Medication Education Goal:Patient/caregive r will demonstrate ability to obtain, store, identify and administer ordered medications, keep accurate medication list in home, and adhere to medication schedule Completed Patient instructed on importance of keeping accurate medication list in home. SPO2 Description: Notify Dr. Zambrano if pulse ox is <92% at rest. Problem:Physician Specific Parameters Goal:Patient to maintain parameters within physician-specified ranges throughout certification period Completed Instruct on individual fall risk factors and strategies to prevent falls and injuries caused by falls. Problem:Risk for Falls Goal:Manage Risk for falls Completed PT: Patient instructed on Managing Impaired Functional Mobility: Use assistive device(s): front wheeled walker Managing Pain Instruct on ongoing discharge plan Problem:Discharge Goal:Manage discharge planning Completed Ongoing Discharge plan: Discharge plan discussed with patient including frequency and duration for home PT and plan for transition to: outpatient therapy. Physical Therapy Therapeutic Exercises Problem:PT Impaired muscle performance and/or ROM Goal:Improved Muscle Performance and/or ROM Completed patient instructed on strengthening and range of motion exercises including ankle pumps, quad and glut sets, hip abd AND SAQ W/ MANUAL ASSIST, heel slides w/ self over pressure, hip add x's 10 each. supine ext hang x's52min. standing heel raises and hams curls x's 10 each seated heel slides x's 10 with verbal, visual and written cues for progressions. patient instructed to perform home exercise program twice a day which included above ex. Physical Therapy Gait Training Problem:PT Impaired gait Goal:Improved Gait Completed Gait training and instruction to patient on safe ambulation with front wheeled walker for 4x's 30 feet with stand by assist, with verbal and visual cues for corrections of gait deviations including increased step length and for knee flexion. Physical Therapy Balance Training Problem:PT Impaired balance Goal:Improved Balance Completed Developed, implemented, and instructed patient on standing balance exercises including standing exercises w/ Haider UE support. Instruct on management of edema Problem:PT Orthopedic Condition Goal:Manage Orthopedic Condition Completed Instruct patient on management of edema including elevation of LLE above the level of the heart and ice. Instruct on self-management of post surgical and/or non-surgical orthopedic intervention Problem:PT Orthopedic Condition Goal:Manage Orthopedic Condition Completed patient instructed on signs and symptoms of infection, signs and symptoms of DVT/PE, instructed on when to call provider and instructed on when to call 911. Instruct and educate on knowledge deficits Problem:PT Learning Assessment Goal:Demonstrate understanding of education Completed patient verbalize and/or demonstrate understanding of physical therapy education including home exercise program. Education methods include: verbal cues, written instructions and visual cues. Further education required to improve knowledge and compliance with home exercise program. 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 Problems Problem Description Start Date Status Goals Interve ntions Medication Education Disciplines: Skilled Services 05/13/2023 Active 1 goal linked to scheduled/document ed intervention 1 goal intervention scheduled/document ed in this visit Physician Specific Parameters Disciplines: Skilled Services 05/13/2023 Active 1 goal linked to scheduled/document ed intervention 1 goal intervention scheduled/document ed in this visit Risk for Falls Disciplines: Skilled Services 05/13/2023 Active 1 goal linked to scheduled/document ed intervention 1 goal intervention scheduled/document ed in this visit Pain Disciplines: Skilled Services 05/13/2023 Active 1 goal linked to scheduled/document ed intervention 1 goal intervention scheduled/document ed in this visit Discharge Disciplines: Skilled Services 05/13/2023 Active 1 goal linked to scheduled/document ed intervention 1 goal intervention scheduled/document ed in this visit PT Impaired muscle performance and/or ROM Disciplines: PT 05/13/2023 Active 1 goal linked to scheduled/document ed intervention 1 goal intervention scheduled/document ed in this visit PT Impaired mobility Disciplines: PT 05/13/2023 Active 1 goal linked to scheduled/document ed intervention 1 goal intervention scheduled/document ed in this visit PT Impaired gait Disciplines: PT 05/13/2023 Active 1 goal linked to scheduled/document ed intervention 1 goal intervention scheduled/document ed in this visit PT Orthopedic Condition Disciplines: PT 05/13/2023 Active 1 goal linked to scheduled/document ed intervention 2 goal interventions scheduled/document ed in this visit PT Learning Assessment Disciplines: PT 05/13/2023 Active 1 goal linked to scheduled/document ed intervention 1 goal intervention scheduled/document ed in this visit Goals Goal Associated Problem Outcome Goal Met? Visit Notes Patient/caregiver will demonstrate ability to obtain, store, identify and administer ordered medications, keep accurate medication list in home, and adhere to medication schedule Description: Patient/caregiver will demonstrate ability to obtain, store, identify and administer ordered medications, keep accurate medication list in home, and adhere to medication schedule by 07/11/23. Medication Education No Patient to maintain parameters within physician-specified ranges throughout certification period Physician Specific Parameters No Manage Risk for falls Description: Patient/caregiver will verbalize knowledge of individualized fall prevention strategies by 07/11/23. . Risk for Falls No Manage Pain Description: Patient/caregiver will verbalize knowledge and understanding of appropriate techniques to control pain, including pain medication and non-pharmacological techniques. Patient will verbalize or demonstrate an acceptable level of pain as evidenced by a pain score of <5/10 and improvement in ability to perform activities of daily living to be achieved by 07/11/23. . Pain No Manage discharge planning Description: Patient/caregiver will verbalize understanding of ongoing discharge plan provided related to disease management, arrangements for outpatient and/or community services, obtaining medications, supplies, and DME, as needed throughout certification period. Discharge No Improved Muscle Performance and/or ROM Description: LTG: Patient will demonstrate improved muscle performance to meet functional goals as evidenced by ability to tolerate 8-10 minutes of standing activity, to be achieved by 05/29/23. . STG: Patient and/or caregiver will verbalize/demonstrate independence with home exercise program, to improve functional mobility, to be achieved by 05/22/23. LTG: Patient will demonstrate improved left knee active range of motion to 0-85 degrees, to meet functional goals, to be achieved by 05/29/23. . PT Impaired muscle performance and/or ROM No Improved Bed Mobility Description: STG: Patient will demonstrate improved bed mobility, ability to position self and supine <> sit independently to be achieved by 05/22/23. PT Impaired mobility No Improved Gait Description: LTG: Patient will demonstrate improved gait ability as evidenced by ambulation 150 feet with front wheeled walker independently with AD, to return to safe household and community ambulation, in order to transition to OP PT , to be achieved by 05/29/23. . PT Impaired gait No Manage Orthopedic Condition Description: Improve patient and/or caregiver understanding of post surgical and/or non-surgical orthopedic intervention management as evidenced by patient and/or caregiver able to verbalize, demonstrate, and teach back instruction, to be achieved by 05/29/23. . PT Orthopedic Condition No Demonstrate understanding of education Description: Patient and/or caregiver will understand educational instruction to be achieved by 05/29/23. . PT Learning Assessment No Interventions Intervention Associated Problem/Goal Status Variance Visit Notes Medication Education Description: Evaluate/instruct patient/caregiver on obtaining, storing, identifying and administering ordered medications as well as keeping accurate medication list in the home and adhereing to medication schedule Problem:Medication Education Goal:Patient/caregive r will demonstrate ability to obtain, store, identify and administer ordered medications, keep accurate medication list in home, and adhere to medication schedule Completed Patient instructed on importance of keeping accurate medication list in home. SPO2 Description: Notify Dr. Zambrano if pulse ox is <92% at rest. Problem:Physician Specific Parameters Goal:Patient to maintain parameters within physician-specified ranges throughout certification period Completed Instruct on individual fall risk factors and strategies to prevent falls and injuries caused by falls. Problem:Risk for Falls Goal:Manage Risk for falls Completed PT: Patient instructed on Managing Impaired Functional Mobility: Use assistive device(s): front wheeled walker Instruct on pain and instruct on strategies to control pain Problem:Pain Goal:Manage Pain Completed patient instructed on techniques to control pain including Non-Pharmacological measures; positioning/elevation and use of thermal modalities, apply ice to affected area for the following prescribed frequency: prn. Instruct on ongoing discharge plan Problem:Discharge Goal:Manage discharge planning Completed Ongoing Discharge plan: Discharge plan discussed with patient including frequency and duration for home PT and plan for transition to: outpatient therapy. Physical Therapy Therapeutic Exercises Problem:PT Impaired muscle performance and/or ROM Goal:Improved Muscle Performance and/or ROM Completed patient instructed on strengthening and range of motion exercises including quad and glut sets, ankle pumps, hip abd and add, saq w/ manual assist, heel slides w/ bag, standing heel raises, hams curls, hip abd and flexion, step flexion stretch x;s 10, seated heel slides x's 5, supine ext hang x's 3min 30sec with verbal, visual and written cues for correct form. patient instructed to perform home exercise program twice a day which included above ex. Physical Therapy Bed Mobility Training Problem:PT Impaired mobility Goal:Improved Bed Mobility Completed Bed mobility training and instruction to patient, including supine<>sit with independen Physical Therapy Gait Training Problem:PT Impaired gait Goal:Improved Gait Completed Gait training and instruction to patient on safe ambulation with single point cane for 30 feet with stand by assist, with verbal and visual cues for corrections of gait deviations including correct use and step pattern. Patient unsteady w. cane. Instructed to continue w/ ww for safety. Instruct on management of edema Problem:PT Orthopedic Condition Goal:Manage Orthopedic Condition Completed Instruct patient on management of edema including elevation of LLE above the level of the heart and ice. Instruct on self-management of post surgical and/or non-surgical orthopedic intervention Problem:PT Orthopedic Condition Goal:Manage Orthopedic Condition Completed patient instructed on signs and symptoms of infection and signs and symptoms of DVT/PE. Instruct and educate on knowledge deficits Problem:PT Learning Assessment Goal:Demonstrate understanding of education Completed patient verbalize and/or demonstrate understanding of physical therapy education including home exercise program. Education methods include: verbal cues, written instructions and visual cues. Further education required to improve knowledge and compliance with home exercise program. 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 Problems Problem Description Start Date Status Goals Interve ntions Medication Education Disciplines: Skilled Services 05/13/2023 Active 1 goal linked to scheduled/document ed intervention 1 goal intervention scheduled/document ed in this visit Physician Specific Parameters Disciplines: Skilled Services 05/13/2023 Active 1 goal linked to scheduled/document ed intervention 1 goal intervention scheduled/document ed in this visit Risk for Falls Disciplines: Skilled Services 05/13/2023 Active 1 goal linked to scheduled/document ed intervention 1 goal intervention scheduled/document ed in this visit Pain Disciplines: Skilled Services 05/13/2023 Active 1 goal linked to scheduled/document ed intervention 1 goal intervention scheduled/document ed in this visit Discharge Disciplines: Skilled Services 05/13/2023 Active 1 goal linked to scheduled/document ed intervention 1 goal intervention scheduled/document ed in this visit PT Impaired muscle performance and/or ROM Disciplines: PT 05/13/2023 Active 1 goal linked to scheduled/document ed intervention 1 goal intervention scheduled/document ed in this visit PT Impaired mobility Disciplines: PT 05/13/2023 Active 2 goals linked to scheduled/document ed interventions 2 goal interventions scheduled/document ed in this visit PT Impaired gait Disciplines: PT 05/13/2023 Active 2 goals linked to scheduled/document ed interventions 2 goal interventions scheduled/document ed in this visit PT Orthopedic Condition Disciplines: PT 05/13/2023 Active 1 goal linked to scheduled/document ed intervention 2 goal interventions scheduled/document ed in this visit PT Learning Assessment Disciplines: PT 05/13/2023 Active 1 goal linked to scheduled/document ed intervention 1 goal intervention scheduled/document ed in this visit Goals Goal Associated Problem Outcome Goal Met? Visit Notes Patient/caregiver will demonstrate ability to obtain, store, identify and administer ordered medications, keep accurate medication list in home, and adhere to medication schedule Description: Patient/caregiver will demonstrate ability to obtain, store, identify and administer ordered medications, keep accurate medication list in home, and adhere to medication schedule by 07/11/23. Medication Education No Patient to maintain parameters within physician-specified ranges throughout certification period Physician Specific Parameters No Manage Risk for falls Description: Patient/caregiver will verbalize knowledge of individualized fall prevention strategies by 07/11/23. . Risk for Falls No Manage Pain Description: Patient/caregiver will verbalize knowledge and understanding of appropriate techniques to control pain, including pain medication and non-pharmacological techniques. Patient will verbalize or demonstrate an acceptable level of pain as evidenced by a pain score of <5/10 and improvement in ability to perform activities of daily living to be achieved by 07/11/23. . Pain No Manage discharge planning Description: Patient/caregiver will verbalize understanding of ongoing discharge plan provided related to disease management, arrangements for outpatient and/or community services, obtaining medications, supplies, and DME, as needed throughout certification period. Discharge No Improved Muscle Performance and/or ROM Description: LTG: Patient will demonstrate improved muscle performance to meet functional goals as evidenced by ability to tolerate 8-10 minutes of standing activity, to be achieved by 05/29/23. . STG: Patient and/or caregiver will verbalize/demonstrate independence with home exercise program, to improve functional mobility, to be achieved by 05/22/23. LTG: Patient will demonstrate improved left knee active range of motion to 0-85 degrees, to meet functional goals, to be achieved by 05/29/23. . PT Impaired muscle performance and/or ROM No Improved Transfers Description: LTG: Patient will demonstrate safe transfers to/from bed, chair, toilet, shower/tub and car independently with AD, to be achieved by 05/29/23. . PT Impaired mobility No Improved Bed Mobility Description: STG: Patient will demonstrate improved bed mobility, ability to position self and supine <> sit independently to be achieved by 05/22/23. PT Impaired mobility No Improved Stair Climbing Description: LTG: Patient will demonstrate improved stair negotiation as evidenced by ascend/descend 3 steps with cane independently, to safely transition to her own home , to be achieved by 05/29/23. . PT Impaired gait No Improved Gait Description: LTG: Patient will demonstrate improved gait ability as evidenced by ambulation 150 feet with front wheeled walker independently with AD, to return to safe household and community ambulation, in order to transition to OP PT , to be achieved by 05/29/23. . PT Impaired gait No Manage Orthopedic Condition Description: Improve patient and/or caregiver understanding of post surgical and/or non-surgical orthopedic intervention management as evidenced by patient and/or caregiver able to verbalize, demonstrate, and teach back instruction, to be achieved by 05/29/23. . PT Orthopedic Condition No Demonstrate understanding of education Description: Patient and/or caregiver will understand educational instruction to be achieved by 05/29/23. . PT Learning Assessment No Interventions Intervention Associated Problem/Goal Status Variance Visit Notes Medication Education Description: Evaluate/instruct patient/caregiver on obtaining, storing, identifying and administering ordered medications as well as keeping accurate medication list in the home and adhereing to medication schedule Problem:Medication Education Goal:Patient/caregive r will demonstrate ability to obtain, store, identify and administer ordered medications, keep accurate medication list in home, and adhere to medication schedule Completed Patient instructed on importance of keeping accurate medication list in home. SPO2 Description: Notify Dr. Zambrano if pulse ox is <92% at rest. Problem:Physician Specific Parameters Goal:Patient to maintain parameters within physician-specified ranges throughout certification period Completed Instruct on individual fall risk factors and strategies to prevent falls and injuries caused by falls. Problem:Risk for Falls Goal:Manage Risk for falls Completed PT: Patient instructed on Managing Impaired Functional Mobility: Use assistive device(s): front wheeled walker Instruct on pain and instruct on strategies to control pain Problem:Pain Goal:Manage Pain Completed patient instructed on techniques to control pain including Pharmacological measures and Non-Pharmacological measures; positioning/elevation and use of thermal modalities, apply ice to affected area for the following prescribed frequency: prn. Instruct on ongoing discharge plan Problem:Discharge Goal:Manage discharge planning Completed Ongoing Discharge plan: Discharge plan discussed with patient including frequency and duration for home PT and plan for transition to: outpatient therapy. Physical Therapy Therapeutic Exercises Problem:PT Impaired muscle performance and/or ROM Goal:Improved Muscle Performance and/or ROM Completed patient instructed on strengthening and range of motion exercises including standing heel raises, hip abd and flexion, hams curls and 1./4 squats x's 10 each. attempted haider standing but patient unable to do without significant lean on counter at this time , seated heel slides x's 10 with verbal cues for form. patient instructed to perform home exercise program twice a day which included above ex. Physical Therapy Transfer Training Problem:PT Impaired mobility Goal:Improved Transfers Completed Transfer training and instruction to patient on safe transfers to and from shower/tub with supervision and verbal cues for correct hand placement for safety. Physical Therapy Bed Mobility Training Problem:PT Impaired mobility Goal:Improved Bed Mobility Completed Bed mobility training and instruction to patient, including supine<>sit with independent Physical Therapy Stair Training Problem:PT Impaired gait Goal:Improved Stair Climbing Completed Stair training and instruction to patient on safe stair climbing, ascend/descend 3 steps, with railing and with cane with supervision and verbal cues for correct technique. Physical Therapy Gait Training Problem:PT Impaired gait Goal:Improved Gait Completed Gait training and instruction to patient on safe ambulation with front wheeled walker and single point cane for 50 feet each with supervision and stand by assist, with verbal cues for corrections of gait deviations including heel to toe pattern and weight shifting to LLE. Instruct on management of edema Problem:PT Orthopedic Condition Goal:Manage Orthopedic Condition Completed Instruct patient on management of edema including elevation of LLE above the level of the heart and ice. Instruct on self-management of post surgical and/or non-surgical orthopedic intervention Problem:PT Orthopedic Condition Goal:Manage Orthopedic Condition Completed patient instructed on signs and symptoms of infection, signs and symptoms of DVT/PE, instructed on when to call provider and instructed on when to call 911. Instruct and educate on knowledge deficits Problem:PT Learning Assessment Goal:Demonstrate understanding of education Completed patient verbalize and/or demonstrate understanding of physical therapy education including functional activity and home exercise program. Education methods include: verbal cues. Further education required to improve knowledge and compliance with home exercise program. [facility] Visit Details Visit Type -PT AGENCY DC W V ISIT Discipline -Physical Therapy Problems Problem Description Start Date Status Goals Interve ntions Medication Education Disciplines: Skilled Services 05/13/2023 Resolved on 05/26/2023 1 goal linked to scheduled/document ed intervention 1 goal intervention scheduled/document ed in this visit Physician Specific Parameters Disciplines: Skilled Services 05/13/2023 Resolved on 05/26/2023 1 goal linked to scheduled/document ed intervention 1 goal intervention scheduled/document ed in this visit Risk for Falls Disciplines: Skilled Services 05/13/2023 Resolved on 05/26/2023 1 goal linked to scheduled/document ed intervention 1 goal intervention scheduled/document ed in this visit Pain Disciplines: Skilled Services 05/13/2023 Resolved on 05/26/2023 1 goal linked to scheduled/document ed intervention 1 goal intervention scheduled/document ed in this visit Discharge Disciplines: Skilled Services 05/13/2023 Resolved on 05/26/2023 1 goal linked to scheduled/document ed intervention 1 goal intervention scheduled/document ed in this visit PT Impaired muscle performance and/or ROM Disciplines: PT 05/13/2023 Resolved on 05/26/2023 1 goal linked to scheduled/document ed intervention 1 goal intervention scheduled/document ed in this visit PT Impaired mobility Disciplines: PT 05/13/2023 Resolved on 05/26/2023 2 goals linked to scheduled/document ed interventions 2 goal interventions scheduled/document ed in this visit PT Impaired gait Disciplines: PT 05/13/2023 Resolved on 05/26/2023 2 goals linked to scheduled/document ed interventions 2 goal interventions scheduled/document ed in this visit PT Impaired balance Disciplines: PT 05/13/2023 Resolved on 05/26/2023 1 goal linked to scheduled/document ed intervention 1 goal intervention scheduled/document ed in this visit PT Orthopedic Condition Disciplines: PT 05/13/2023 Resolved on 05/26/2023 1 goal linked to scheduled/document ed intervention 3 goal interventions scheduled/document ed in this visit PT Learning Assessment Disciplines: PT 05/13/2023 Resolved on 05/26/2023 1 goal linked to scheduled/document ed intervention 1 goal intervention scheduled/document ed in this visit Goals Goal Associated Problem Outcome Goal Met? Visit Notes Patient/caregiver will demonstrate ability to obtain, store, identify and administer ordered medications, keep accurate medication list in home, and adhere to medication schedule Description: Patient/caregiver will demonstrate ability to obtain, store, identify and administer ordered medications, keep accurate medication list in home, and adhere to medication schedule by 07/11/23. Medication Education Completed Yes Patient to maintain parameters within physician-specified ranges throughout certification period Physician Specific Parameters Completed Yes Manage Risk for falls Description: Patient/caregiver will verbalize knowledge of individualized fall prevention strategies by 07/11/23. . Risk for Falls Completed Yes Manage Pain Description: Patient/caregiver will verbalize knowledge and understanding of appropriate techniques to control pain, including pain medication and non-pharmacological techniques. Patient will verbalize or demonstrate an acceptable level of pain as evidenced by a pain score of <5/10 and improvement in ability to perform activities of daily living to be achieved by 07/11/23. . Pain Completed Yes Manage discharge planning Description: Patient/caregiver will verbalize understanding of ongoing discharge plan provided related to disease management, arrangements for outpatient and/or community services, obtaining medications, supplies, and DME, as needed throughout certification period. Discharge Completed Yes Improved Muscle Performance and/or ROM Description: LTG: Patient will demonstrate improved muscle performance to meet functional goals as evidenced by ability to tolerate 8-10 minutes of standing activity, to be achieved by 05/29/23. . STG: Patient and/or caregiver will verbalize/demonstrate independence with home exercise program, to improve functional mobility, to be achieved by 05/22/23. LTG: Patient will demonstrate improved left knee active range of motion to 0-85 degrees, to meet functional goals, to be achieved by 05/29/23. . PT Impaired muscle performance and/or ROM Completed Yes Improved Transfers Description: LTG: Patient will demonstrate safe transfers to/from bed, chair, toilet, shower/tub and car independently with AD, to be achieved by 05/29/23. . PT Impaired mobility Completed Yes Improved Bed Mobility Description: STG: Patient will demonstrate improved bed mobility, ability to position self and supine <> sit independently to be achieved by 05/22/23. PT Impaired mobility Completed Yes Improved Stair Climbing Description: LTG: Patient will demonstrate improved stair negotiation as evidenced by ascend/descend 3 steps with cane independently, to safely transition to her own home , to be achieved by 05/29/23. . PT Impaired gait Completed Yes Improved Gait Description: LTG: Patient will demonstrate improved gait ability as evidenced by ambulation 150 feet with front wheeled walker independently with AD, to return to safe household and community ambulation, in order to transition to OP PT , to be achieved by 05/29/23. . PT Impaired gait Completed Yes Improved Balance Description: LTG: Patient will demonstrate improved standing balance to meet functional goals as evidenced by TUG score of <28 to be achieved by 05/29/23. PT Impaired balance Completed Yes Manage Orthopedic Condition Description: Improve patient and/or caregiver understanding of post surgical and/or non-surgical orthopedic intervention management as evidenced by patient and/or caregiver able to verbalize, demonstrate, and teach back instruction, to be achieved by 05/29/23. . PT Orthopedic Condition Completed Yes Demonstrate understanding of education Description: Patient and/or caregiver will understand educational instruction to be achieved by 05/29/23. . PT Learning Assessment Completed Yes Interventions Intervention Associated Problem/Goal Status Variance Visit Notes Medication Education Description: Evaluate/instruct patient/caregiver on obtaining, storing, identifying and administering ordered medications as well as keeping accurate medication list in the home and adhereing to medication schedule Problem:Medication Education Goal:Patient/caregive r will demonstrate ability to obtain, store, identify and administer ordered medications, keep accurate medication list in home, and adhere to medication schedule Completed Patient instructed on importance of keeping accurate medication list in home, need to take up-to-date medication list to all medical provider appointments and adhering to medication schedule. SPO2 Description: Notify Dr. Zambrano if pulse ox is <92% at rest. Problem:Physician Specific Parameters Goal:Patient to maintain parameters within physician-specified ranges throughout certification period Completed Instruct on individual fall risk factors and strategies to prevent falls and injuries caused by falls. Problem:Risk for Falls Goal:Manage Risk for falls Completed PT: Patient instructed on Eliminating Environmental Hazards: Keep pathways clear, Remove unsafe rugs and Move furniture from pathways Managing Impaired Functional Mobility: Use assistive device(s): front wheeled walker Managing Pain Instruct on pain and instruct on strategies to control pain Problem:Pain Goal:Manage Pain Completed patient instructed on techniques to control pain including Pharmacological measures and Non-Pharmacological measures; rest, positioning/elevation and use of thermal modalities, apply ice to affected area . Instruct on final discharge plan and deliver discharge instructions Problem:Discharge Goal:Manage discharge planning Completed Delivered Discharge plan: Discharge plan discussed with patient for plan for transition to: outpatient therapy Physical Therapy Therapeutic Exercises Problem:PT Impaired muscle performance and/or ROM Goal:Improved Muscle Performance and/or ROM Completed patient instructed on strengthening and range of motion exercises including standing heel raises, hip abd and flexion, hams curls and 1./4 squats x's 10 each. attempted haider standing but patient unable to do without significant lean on counter at this time , seated heel slides x's 10 with verbal cues for form. patient instructed to perform home exercise program twice a day which included above ex. Physical Therapy Transfer Training Problem:PT Impaired mobility Goal:Improved Transfers Completed NOLBERTO transfers with safe/proper technique Physical Therapy Bed Mobility Training Problem:PT Impaired mobility Goal:Improved Bed Mobility Completed NOLBERTO bed mobility Physical Therapy Stair Training Problem:PT Impaired gait Goal:Improved Stair Climbing Completed up and down 1 fkight with rail + cane with step together sequence Physical Therapy Gait Training Problem:PT Impaired gait Goal:Improved Gait Completed Indep amb with WW with steady recip pattern x 100 Physical Therapy Balance Training Problem:PT Impaired balance Goal:Improved Balance Completed pt demonstrates improved dynsmic standing balacne as evidenced by a tug of 28 Instruct on orthopedic precautions and weight bearing restrictions Description: Orthopedic precautions including left total knee: no crossing legs, no knee flexed over pillow at rest, no kneeling, no squatting and no twisting. Weight bearing restrictions include: WBAT of involved extremity. Problem:PT Orthopedic Condition Goal:Manage Orthopedic Condition Completed patient instructed on orthopedic precautions. Instruct on management of edema Problem:PT Orthopedic Condition Goal:Manage Orthopedic Condition Completed Instruct patient on management of edema including elevation of LLE above the level of the heart and ice. Instruct on self-management of post surgical and/or non-surgical orthopedic intervention Problem:PT Orthopedic Condition Goal:Manage Orthopedic Condition Completed patient instructed on managagement of orthopedic condition, staying well hydrated, eating foods with high protein, signs and symptoms of infection, signs and symptoms of DVT/PE, follow provider guidance for showering and instructed on when to call provider. Instruct and educate on knowledge deficits Problem:PT Learning Assessment Goal:Demonstrate understanding of education Completed patient verbalize and/or demonstrate understanding of physical therapy education including orthopedic condition management, surgical precautions, pain management, fall prevention strategies, home safety, functional activity and home exercise program. Education methods include: verbal cues. documented in this encounter [facility] for referral (narrative)* Diagnostic Procedure Only (Routine) - Closed Specialty Diagnoses / Procedures Referred By Mariel mensah Referred To Contact XR IMAGING Diagnoses Rotator cuff injury, right, subsequent encounter Procedures XR SHOULDER GENERAL 3V OR MORE AP/TRUE AP/OTHER RIGHT RADEX SHOULDER COMPLETE MINIMUM 2 VIEWS Sivakumar Matamoros PA-C [address] [place] [address] Xr Imaging Referral ID Status Reason Start Date Expiration Date V isits Requested Visits Authorized [id number] Closed Auto-Generate d Referral 08/11/2021 09/10/2022 1 1 [facility] for referral (narrative)* Diagnostic Procedure Only (Routine) - Authorized Specialty Diagnoses / Procedures Referred By Mariel mensah Referred To Contact BR IMAGING Diagnoses Encounter for screening mammogram for malignant neoplasm of breast Procedures STEFFI SCREENING W SAMUEL SCREENING DIGITAL BREAST TOMOSYNTHESIS BI SCREENING MAMMOGRAPHY BI 2-VIEW BREAST INC CAD Sivakumar Matamoros PA-C [address] [place] [address] Br Imaging [address] [facility] [place] [address] Referral ID Status Reason Start Date Expiration Date Visits Requested Visits Authorized [id number] Authorized Auto-Generat ed Referral 06/16/2022 07/16/2023 1 1 [facility] for referral (narrative)* Diagnostic Procedure Only (Routine) - Authorized Specialty Diagnoses / Procedures Referred By Mariel mensah Referred To Contact BR IMAGING Diagnoses Inconclusive mammogram Procedures US BREAST LTD LEFT US BREAST UNI REAL TIME WITH IMAGE LIMITED Sivakumar Matamoros PA-C [address] [place] [address] Br Imaging [address] [place] [address] Referral ID Status Reason Start Date Expiration Date Visits Requested Visits Authorized [id number] Authorized Auto-Generat ed Referral 07/18/2022 08/17/2023 1 1 * Diagnostic Procedure Only (Routine) - Authorized Specialty Diagnoses / Procedures Referred By Mariel t Referred To Contact BR IMAGING Diagnoses Inconclusive mammogram Procedures STEFFI DIAGNOSTIC LEFT DIAGNOSTIC MAMMOGRAPHY COMPUTER-AIDED DETCJ UNI Sivakumar Matamoros PA-C [address] [place] [address] Br Imaging [address] [place] [address] Referral ID Status Reason Start Date Expiration Date Visits Requested Visits Authorized [id number] Authorized Auto-Generat ed Referral 07/18/2022 08/17/2023 1 1 [facility] for referral (narrative)* Diagnostic Procedure Only (Routine) - Closed Specialty Diagnoses / Procedures Referred By Mariel mensah Referred To Contact BR IMAGING Diagnoses Inconclusive mammogram Procedures US BREAST LTD LEFT US BREAST UNI REAL TIME WITH IMAGE LIMITED Sivakumar Matamoros PA-C [address] [place] [address] Br Imaging [address] [place] [address] Referral ID Status Reason Start Date Expiration Date V isits Requested Visits Authorized [id number] Closed Auto-Generate d Referral 07/18/2022 08/17/2023 1 1 [facility] for referral (narrative)* Diagnostic Procedure Only (Routine) - Closed Specialty Diagnoses / Procedures Referred By Mariel mensah Referred To Contact BR IMAGING Diagnoses Encounter for screening mammogram for malignant neoplasm of breast Procedures STEFFI SCREENING W SAMUEL SCREENING DIGITAL BREAST TOMOSYNTHESIS BI SCREENING MAMMOGRAPHY BI 2-VIEW BREAST INC CAD Sivakumar Matamoros PA-C [address] [place] [id number] Br Imaging [address] [place] [address] Referral ID Status Reason Start Date Expiration Date V isits Requested Visits Authorized [id number] Closed Auto-Generate d Referral 06/16/2022 07/16/2023 1 1 [facility] for referral (narrative)* Diagnostic Procedure Only (Routine) - Authorized Specialty Diagnoses / Procedures Referred By Contac t Referred To Contact BR IMAGING Diagnoses Screening mammogram for breast cancer Procedures STEFFI SCREENING W SAMUEL SCREENING DIGITAL BREAST TOMOSYNTHESIS BI SCREENING MAMMOGRAPHY BI 2-VIEW BREAST INC Heena Andrews APRN.CNP [address] [place] [address] Br Imaging [address] [place] [address] Referral ID Status Reason Start Date Expiration Date Visits Requested Visits Authorized [id number] Authorized Auto-Generat ed Referral 06/18/2023 07/17/2024 1 1 [facility] for referral (narrative)* Diagnostic Procedure Only (Routine) - Closed Specialty Diagnoses / Procedures Referred By Contac t Referred To Contact XR IMAGING Diagnoses Left knee pain, unspecified chronicity Procedures XR KNEE POST OP 3V AP/LAT/MERCHANT LEFT RADIOLOGIC EXAMINATION KNEE 3 VIEWS Kobe Templeton PA-C [address] [place] [id number] Xr Imaging [facility] Referral ID Status Reason Start Date Expiration Date V isits Requested Visits Authorized [id number] Closed Auto-Generate d Referral 05/13/2023 06/11/2024 1 1 [facility] for referral (narrative)* Diagnostic Procedure Only (Routine) - Closed Specialty Diagnoses / Procedures Referred By Contac t Referred To Contact XR IMAGING Diagnoses Left knee pain, unspecified chronicity Procedures XR KNEE GENERAL 4V AP BOTH/PA BOTH/LAT/MERC LEFT RADIOLOGIC EXAM KNEE COMPLETE 4/MORE VIEWS Medardo Lester PA-C [address] [place] [address] [place] [address] Referral ID Status Reason Start Date Expiration Date V isits Requested Visits Authorized [id number] Closed Auto-Generate d Referral 02/16/2023 03/17/2024 1 1 [facility] for referral (narrative)* Diagnostic Procedure Only (Routine) - Closed Specialty Diagnoses / Procedures Referred By Contac t Referred To Contact XR IMAGING Diagnoses Chronic pain of left knee Procedures XR KNEE GENERAL 4V AP BOTH/PA BOTH/LAT/MERC LEFT RADIOLOGIC EXAM KNEE COMPLETE 4/MORE VIEWS Sivakumar Matamoros PA-C [address] [place] [address] [place] [address] Referral ID Status Reason Start Date Expiration Date V isits Requested Visits Authorized [id number] Closed Auto-Generate d Referral 03/02/2022 04/01/2023 1 1 [facility] for visit Narrative* Diagnostic Procedure Only (Routine) - Closed Specialty Diagnoses / Procedures Referred By Contac t Referred To Contact BR IMAGING Diagnoses Inconclusive mammogram Procedures STEFFI DIAGNOSTIC LEFT DIAGNOSTIC MAMMOGRAPHY COMPUTER-AIDED DETCJ UNI Sivakumar Matamoros PA-C [address] [place] [address] Br Imaging [address] [place] [address] Referral ID Status Reason Start Date Expiration Date V isits Requested Visits Authorized [id number] Closed Auto-Generate d Referral 07/18/2022 08/17/2023 1 1 [facility] for visit Narrative* Diagnostic Procedure Only (Routine) - Closed Specialty Diagnoses / Procedures Referred By Contac t Referred To Contact BR IMAGING Diagnoses Encounter for screening mammogram for malignant neoplasm of breast Procedures STEFFI SCREENING W SAMUEL SCREENING DIGITAL BREAST TOMOSYNTHESIS BI SCREENING MAMMOGRAPHY BI 2-VIEW BREAST INC CAD Sivakumar Matamoros PA-C [address] [place] [address] Br Imaging [address] [place] [address] Referral ID Status Reason Start Date Expiration Date V isits Requested Visits Authorized [id number] Closed Auto-Generate d Referral 06/16/2022 07/16/2023 1 1 [facility] for visit Narrative* Diagnostic Procedure Only (Routine) - Closed Specialty Diagnoses / Procedures Referred By Contac t Referred To Contact BR IMAGING Diagnoses Screening mammogram for breast cancer Procedures STEFFI SCREENING W SAMUEL SCREENING DIGITAL BREAST TOMOSYNTHESIS BI SCREENING MAMMOGRAPHY BI 2-VIEW BREAST INC CAD Heena Birch APRN.ASSOC[employer]ATE [employer] [address] [place] [address] Br Imaging [address] [place] [address] Referral ID Status Reason Start Date Expiration Date V isits Requested Visits Authorized [id number] Closed Auto-Generate d Referral 06/18/2023 07/17/2024 1 1 [facility] for visit Narrative* Diagnostic Procedure Only (Routine) - Closed Specialty Diagnoses / Procedures Referred By Contac t Referred To Contact XR IMAGING Diagnoses Left knee pain, unspecified chronicity Procedures XR KNEE POST OP 3V AP/LAT/MERCHANT LEFT RADIOLOGIC EXAMINATION KNEE 3 VIEWS Kobe Templeton PA-C [address] [place] [address] Xr Imaging [facility]95 Referral ID Status Reason Start Date Expiration Date V isits Requested Visits Authorized [id number] Closed Auto-Generate d Referral 05/13/2023 06/11/2024 1 1 [facility] for visit Narrative* Diagnostic Procedure Only (Routine) - Closed Specialty Diagnoses / Procedures Referred By Contac t Referred To Contact XR IMAGING Diagnoses Left knee pain, unspecified chronicity Procedures XR KNEE GENERAL 4V AP BOTH/PA BOTH/LAT/MERC LEFT RADIOLOGIC EXAM KNEE COMPLETE 4/MORE VIEWS Medardo Lester PA-C [address] [place] [address] [place] [address] Referral ID Status Reason Start Date Expiration Date V isits Requested Visits Authorized [id number] Closed Auto-Generate d Referral 02/16/2023 03/17/2024 1 1 [facility] for visit Narrative* Diagnostic Procedure Only (Routine) - Closed Specialty Diagnoses / Procedures Referred By Contac t Referred To Contact XR IMAGING Diagnoses Chronic pain of left knee Procedures XR KNEE GENERAL 4V AP BOTH/PA BOTH/LAT/MERC LEFT RADIOLOGIC EXAM KNEE COMPLETE 4/MORE VIEWS Sivakumar Matamoros PA-C [address] [place] [address] [place] [address] Referral ID Status Reason Start Date Expiration Date V isits Requested Visits Authorized [id number] Closed Auto-Generate d Referral 03/02/2022 04/01/2023 1 1 [facility] for visit Narrative* Diagnostic Procedure Only (Routine) - Closed Specialty Diagnoses / Procedures Referred By Contac t Referred To Contact XR IMAGING Diagnoses Left knee pain, unspecified chronicity Procedures XR KNEE POST OP 3V AP/LAT/MERCHANT LEFT RADIOLOGIC EXAMINATION KNEE 3 VIEWS Kobe Templeton PA-C [address] [place] [address] [place] [address] Referral ID Status Reason Start Date Expiration Date V isits Requested Visits Authorized [id number] Closed Auto-Generate d Referral 01/04/2024 02/02/2025 1 1 [facility] for visit Narrative* Diagnostic Procedure Only (Routine) - Closed Specialty Diagnoses / Procedures Referred By Contac t Referred To Contact XR IMAGING Diagnoses Left knee pain, unspecified chronicity Procedures XR KNEE POST OP 3V AP/LAT/MERCHANT LEFT RADIOLOGIC EXAMINATION KNEE 3 VIEWS Medardo Lester PA-C [address] [place] [address] Phone: tel: fax: [place] [address] Referral ID Status Reason Start Date Expiration Date V isits Requested Visits Authorized [id number] Closed Auto-Generate d Referral 05/17/2024 06/16/2025 1 1 [facility] for visit Narrative* Diagnostic Procedure Only (Routine) - Closed Specialty Diagnoses / Procedures Referred By Contac t Referred To Contact BR IMAGING Diagnoses Encounter for screening mammogram for malignant neoplasm of breast Procedures STEFFI SCREENING W SAMUEL SCREENING DIGITAL BREAST TOMOSYNTHESIS BI SCREENING MAMMOGRAPHY BI 2-VIEW BREAST INC CAD Heena Birch APRN.ASSOC[employer]ATE [employer]NER [address] [place] [address] Phone: tel: fax: BR IMAGING [address] [place] [address] Referral ID Status Reason Start Date Expiration Date V isits Requested Visits Authorized [id number] Closed Auto-Generate d Referral 08/02/2024 09/01/2025 1 1 [facility] for visit Narrative* Diagnostic Procedure Only (Routine) - Authorized Specialty Diagnoses / Procedures Referred By Mariel mensah Referred To Contact BR IMAGING Diagnoses Abnormal mammogram Procedures US BREAST LTD LEFT US BREAST UNI REAL TIME WITH IMAGE LIMITED Heena Birch APRN.ASSOC[employer]ATE [employer]NER [address] [place] [address] Phone: tel: fax: [facility] [address] [facility] [place] [address] Referral ID Status Reason Start Date Expiration Date Visits Requested Visits Authorized [id number] Authorized Auto-Generat ed Referral 11/03/2024 12/03/2025 1 1 [facility] for visit Narrative* Diagnostic Procedure Only (Routine) - Closed Specialty Diagnoses / Procedures Referred By Mariel mensah Referred To Contact BR IMAGING Diagnoses Abnormal mammogram Procedures STEFFI DIAGNOSTIC LEFT DIAGNOSTIC MAMMOGRAPHY COMPUTER-AIDED DETCJ UNI Heena Birch 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 [address] [place] [address] Phone: tel: fax: [facility] IMAGING [address] [place] [address] Referral ID Status Reason Start Date Expiration Date V isits Requested Visits Authorized [id number] Closed Auto-Generate d Referral 11/03/2024 12/03/2025 1 1 [facility] Summary Purpose Family History No Family History Records FoundNo Family History Records FoundNo Family History Records FoundNo Family History Records FoundNo Family History Records Found Advance Directives No Advanced Directives Records FoundDocuments on File Type Date Recorded 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 Advance Directive(s) 09/23/2020 1:08 PM Advance Directive(s) 09/23/2020 1:11 PM Advance Directive(s) 04/02/2017 7:38 AM Documents on File Type Date Recorded 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 Advance Directive(s) 09/23/2020 1:08 PM Advance Directive(s) 09/23/2020 1:11 PM Advance Directive(s) 04/02/2017 7:38 AM Latest Code Status on File Code Status Date Activated Date Inactivated Comments Full Code 05/13/2023 10:42 AM Latest Code Status on File Code Status Date Activated Date Inactivated Comments Full Code 05/13/2023 10:42 AM Date Activated Date Inactivated Comments 05/13/2023 10:42 AM Date Activated Date Inactivated Comments 05/13/2023 10:42 AM Reason for Referral Specialty Diagnoses / Procedures Referred By Contac t Referred To Contact [facility] Diagnoses Acute pain of right shoulder Snapping scapula syndrome of right shoulder Procedures CONSULT TO PHYSICAL THERAPY PHYSICAL THERAPY EVALUATION HIGH COMPLEX 45 MINS Sivakumar Matamoros PA-C [address] [place] [address] [facility] [address] [place] [address] Referral ID Status Reason Start Date Expiration Date Visits Requested Visits Authorized [id number] Pending Review Auto-Generat ed Referral 08/07/2021 08/07/2022 1 1 Specialty Diagnoses / Procedures Referred By Mariel t Referred To Contact XR IMAGING Diagnoses Acute pain of right shoulder Snapping scapula syndrome of right shoulder Procedures XR SHOULDER GENERAL 3V OR MORE AP/TRUE AP/OTHER RIGHT RADEX SHOULDER COMPLETE MINIMUM 2 VIEWS Sivakumar Matamoros PA-C [address] [place] [address] Xr Imaging Referral ID Status Reason Start Date Expiration Date Visits Requested Visits Authorized [id number] Authorized Auto-Generat ed Referral 08/07/2021 09/06/2022 1 1 Specialty Diagnoses / Procedures Referred By Declanac t Referred To Contact Diagnoses Obesity, Class II, BMI 35-39.9 Sivakumar Matamoros PA-C [address] [place] [address] Referral ID Status Reason Start Date Expiration Date Visits Re quested Visits Authorized [id number] Closed 1 1 Specialty Diagnoses / Procedures Referred By Contac t Referred To Contact Diagnoses Recurrent major depressive disorder, in partial remission (HCC) Sivakumar Matamoros PA-C [address] [place] [address] Referral ID Status Reason Start Date Expiration Date Visits Re quested Visits Authorized [id number] Closed 1 1 Specialty Diagnoses / Procedures Referred By Contac t Referred To Contact [facility] Diagnoses Arthritis of left knee Procedures PT REHAB FOLLOW UP ORDER THERAPEUTIC EXERCISES RE, EA 15 MIN. Crow Elliott, PT [facility] [address] [place] [id number] Referral ID Status Reason Start Date Expiration Date Visits Requested Visits Authorized [id number] Pending Review PCP Requested Referral Auto-Generate d Referral 03/19/2022 06/17/2022 1 1 Referral ID Status Reason Start Date Expiration Date Visits Requested Visits Authorized [id number] Pending Review PCP Requested Referral Auto-Generate d Referral 05/19/2022 08/17/2022 1 1 Specialty Diagnoses / Procedures Referred By Contac t Referred To Contact Sivakumar Matamoros PA-C [address] [place] [address] Referral ID Status Reason Start Date Expiration Date Visits Re quested Visits Authorized [id number] Closed 1 1 Referral ID Status Reason Start Date Expiration Date Visits Re quested Visits Authorized [id number] Closed 1 1 Referral ID Status Reason Start Date Expiration Date Visits Re quested Visits Authorized [id number] Closed 1 1 Specialty Diagnoses / Procedures Referred By Contac t Referred To Contact [facility] Diagnoses S/P total knee arthroplasty, left Procedures CONSULT TO PHYSICAL THERAPY PHYSICAL THERAPY EVALUATION HIGH COMPLEX 45 MINS Kobe Templeton PA-C [address] [place] [address] [facility] [address] [address] Referral ID Status Reason Start Date Expiration Date Visits Requested Visits Authorized [id number] Pending Review Auto-Generat ed Referral 05/24/2023 05/23/2024 1 1 Medications Administered Section Inactive Administered Medications - up to 3 most recent administrations Medication Order MAR Action Action Date Dose Rate Site lidocaine (PF) 10 mg/mL (1 %) 2 mL injection (XYLOCAINE) 2 mL, Injection - FOR ORTHO USE ONLY, ONE TIME INJECTION, 1 dose, Starting on Wed12/04/22 at 1154, Until Wed12/04/22 at 1154 Given 12/04/2022 11:54 AM EDT 2 mL Knee, Right triamcinolone acetonide 40 mg injection (KeNALog 40) 40 mg, Injection - FOR ORTHO USE ONLY, ONE TIME INJECTION, 1 dose, Starting on Wed12/04/22 at 1154, Until Wed12/04/22 at 1154 Given 12/04/2022 11:54 AM EDT 40 mg Knee, Right Inactive Administered Medications - up to 3 most recent administrations Medication Order MAR Action Action Date Dose Rate Site PHENYLephrine 2.5 % 1 Drop (AK-DILATE, KAMINI-SYNEPHRINE) 1 Drop, BOTH EYES, ONCE, 1 dose, On Wed12/17/22 at 1430, FOR OPHTHALMIC USE ONLY PROTECT FROM LIGHT Given 12/17/2022 2:30 PM EDT 1 Drop proparacaine 0.5 % 1 Drop (ALCAINE) 1 Drop, BOTH EYES, ONCE, 1 dose, On Wed12/17/22 at 1430, FOR THE EYE Given 12/17/2022 2:30 PM EDT 1 Drop tropicamide 1 % 1 Drop (MYDRIACYL) 1 Drop, BOTH EYES, ONCE, 1 dose, On Wed12/17/22 at 1430, FOR THE EYE Given 12/17/2022 2:30 PM EDT 1 Drop Health Concerns Problem Noted Date Diagnosed Date 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 Problem Noted Date Diagnosed Date 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 Problem Noted Date Diagnosed Date 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 Problem Noted Date Diagnosed Date 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 Problem Noted Date Diagnosed Date 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 Problem Noted Date Diagnosed Date 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 Problem Noted Date Diagnosed Date 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 Problem Noted Date Diagnosed Date 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 Problem Noted Date Diagnosed Date 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 Problem Noted Date Diagnosed Date 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 Problem Noted Date Diagnosed Date 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 Problem Noted Date Diagnosed Date 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 Active Problems Noted Date Diagnosed Date 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 Active Problems Noted Date Diagnosed Date 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 Active Problems Noted Date Diagnosed Date 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 Additional Source Comments INFORMATION SOURCE (unrecogn ized section and content) DATE CREATED AUTHOR 07/07/2021 [facility] DATE CREATED AUTHOR AUTHOR'S ORGANIZ ATION 04/30/2023 [facility] DATE CREATED AUTHOR AUTHOR'S ORGANIZ ATION 05/12/2023 [facility] DATE CREATED AUTHOR AUTHOR'S ORGANIZ ATION 06/04/2024 [facility] DATE CREATED AUTHOR AUTHOR'S ORGANIZ ATION 12/31/2024 [facility] Source Comments (unrecognize d section and content) In the event this informatio n is protected by the Federal Confidentiality of Alcohol and Drug Abuse Patient Records regulations: The Federal rules restrict any use of the information to criminally investigate or prosecute any alcohol or drug abuse patient.[facility] the event this information is protected by the Federal Confidentiality of Alcohol and Drug Abuse Patient Records regulations: The Federal rules restrict any use of the information to criminally investigate or prosecute any alcohol or drug abuse patient.[facility] the event this information is protected by the Federal Confidentiality of Alcohol and Drug Abuse Patient Records regulations: The Federal rules restrict any use of the information to criminally investigate or prosecute any alcohol or drug abuse patient.[facility] the event this information is protected by the Federal Confidentiality of Alcohol and Drug Abuse Patient Records regulations: The Federal rules restrict any use of the information to criminally investigate or prosecute any alcohol or drug abuse patient.[facility]In the event this information is protected by the Federal Confidentiality of Alcohol and Drug Abuse Patient Records regulations: The Federal rules restrict any use of the information to criminally investigate or prosecute any alcohol or drug abuse patient.[facility]In the event this information is protected by the Federal Confidentiality of Alcohol and Drug Abuse Patient Records regulations: The Federal rules restrict any use of the information to criminally investigate or prosecute any alcohol or drug abuse patient.[facility]In the event this information is protected by the Federal Confidentiality of Alcohol and Drug Abuse Patient Records regulations: The Federal rules restrict any use of the information to criminally investigate or prosecute any alcohol or drug abuse patient.[facility]In the event this information is protected by the Federal Confidentiality of Alcohol and Drug Abuse Patient Records regulations: The Federal rules restrict any use of the information to criminally investigate or prosecute any alcohol or drug abuse patient.[facility]In the event this information is protected by the Federal Confidentiality of Alcohol and Drug Abuse Patient Records regulations: The Federal rules restrict any use of the information to criminally investigate or prosecute any alcohol or drug abuse patient.[facility]In the event this information is protected by the Federal Confidentiality of Alcohol and Drug Abuse Patient Records regulations: The Federal rules restrict any use of the information to criminally investigate or prosecute any alcohol or drug abuse patient.[facility]In the event this information is protected by the Federal Confidentiality of Alcohol and Drug Abuse Patient Records regulations: The Federal rules restrict any use of the information to criminally investigate or prosecute any alcohol or drug abuse patient.[facility]In the event this information is protected by the Federal Confidentiality of Alcohol and Drug Abuse Patient Records regulations: The Federal rules restrict any use of the information to criminally investigate or prosecute any alcohol or drug abuse patient.[facility]In the event this information is protected by the Federal Confidentiality of Alcohol and Drug Abuse Patient Records regulations: The Federal rules restrict any use of the information to criminally investigate or prosecute any alcohol or drug abuse patient.[facility]In the event this information is protected by the Federal Confidentiality of Alcohol and Drug Abuse Patient Records regulations: The Federal rules restrict any use of the information to criminally investigate or prosecute any alcohol or drug abuse patient.[facility]In the event this information is protected by the Federal Confidentiality of Alcohol and Drug Abuse Patient Records regulations: The Federal rules restrict any use of the information to criminally investigate or prosecute any alcohol or drug abuse patient.[facility]In the event this information is protected by the Federal Confidentiality of Alcohol and Drug Abuse Patient Records regulations: The Federal rules restrict any use of the information to criminally investigate or prosecute any alcohol or drug abuse patient.[facility] CincinnatiIn the event this information is protected by the Federal Confidentiality of Alcohol and Drug Abuse Patient Records regulations: The Federal rules restrict any use of the information to criminally investigate or prosecute any alcohol or drug abuse patient.[facility] CincinnatiIn the event this information is protected by the Federal Confidentiality of Alcohol and Drug Abuse Patient Records regulations: The Federal rules restrict any use of the information to criminally investigate or prosecute any alcohol or drug abuse patient.[facility] CincinnatiIn the event this information is protected by the Federal Confidentiality of Alcohol and Drug Abuse Patient Records regulations: The Federal rules restrict any use of the information to criminally investigate or prosecute any alcohol or drug abuse patient.[facility] CincinnatiIn the event this information is protected by the Federal Confidentiality of Alcohol and Drug Abuse Patient Records regulations: The Federal rules restrict any use of the information to criminally investigate or prosecute any alcohol or drug abuse patient.[facility] CincinnatiIn the event this information is protected by the Federal Confidentiality of Alcohol and Drug Abuse Patient Records regulations: The Federal rules restrict any use of the information to criminally investigate or prosecute any alcohol or drug abuse patient.[facility] CincinnatiIn the event this information is protected by the Federal Confidentiality of Alcohol and Drug Abuse Patient Records regulations: The Federal rules restrict any use of the information to criminally investigate or prosecute any alcohol or drug abuse patient.[facility] CincinnatiIn the event this information is protected by the Federal Confidentiality of Alcohol and Drug Abuse Patient Records regulations: The Federal rules restrict any use of the information to criminally investigate or prosecute any alcohol or drug abuse patient.[facility] CincinnatiIn the event this information is protected by the Federal Confidentiality of Alcohol and Drug Abuse Patient Records regulations: The Federal rules restrict any use of the information to criminally investigate or prosecute any alcohol or drug abuse patient.[facility] CincinnatiIn the event this information is protected by the Federal Confidentiality of Alcohol and Drug Abuse Patient Records regulations: The Federal rules restrict any use of the information to criminally investigate or prosecute any alcohol or drug abuse patient.[facility] CincinnatiIn the event this information is protected by the Federal Confidentiality of Alcohol and Drug Abuse Patient Records regulations: The Federal rules restrict any use of the information to criminally investigate or prosecute any alcohol or drug abuse patient.[facility] CincinnatiIn the event this information is protected by the Federal Confidentiality of Alcohol and Drug Abuse Patient Records regulations: The Federal rules restrict any use of the information to criminally investigate or prosecute any alcohol or drug abuse patient.[facility] CincinnatiIn the event this information is protected by the Federal Confidentiality of Alcohol and Drug Abuse Patient Records regulations: The Federal rules restrict any use of the information to criminally investigate or prosecute any alcohol or drug abuse patient.[facility] CincinnatiIn the event this information is protected by the Federal Confidentiality of Alcohol and Drug Abuse Patient Records regulations: The Federal rules restrict any use of the information to criminally investigate or prosecute any alcohol or drug abuse patient.[facility] CincinnatiIn the event this information is protected by the Federal Confidentiality of Alcohol and Drug Abuse Patient Records regulations: The Federal rules restrict any use of the information to criminally investigate or prosecute any alcohol or drug abuse patient.[facility] CincinnatiIn the event this information is protected by the Federal Confidentiality of Alcohol and Drug Abuse Patient Records regulations: The Federal rules restrict any use of the information to criminally investigate or prosecute any alcohol or drug abuse patient.[facility] CincinnatiIn the event this information is protected by the Federal Confidentiality of Alcohol and Drug Abuse Patient Records regulations: The Federal rules restrict any use of the information to criminally investigate or prosecute any alcohol or drug abuse patient.[facility] CincinnatiIn the event this information is protected by the Federal Confidentiality of Alcohol and Drug Abuse Patient Records regulations: The Federal rules restrict any use of the information to criminally investigate or prosecute any alcohol or drug abuse patient.[facility] CincinnatiIn the event this information is protected by the Federal Confidentiality of Alcohol and Drug Abuse Patient Records regulations: The Federal rules restrict any use of the information to criminally investigate or prosecute any alcohol or drug abuse patient.[facility] CincinnatiIn the event this information is protected by the Federal Confidentiality of Alcohol and Drug Abuse Patient Records regulations: The Federal rules restrict any use of the information to criminally investigate or prosecute any alcohol or drug abuse patient.[facility] CincinnatiIn the event this information is protected by the Federal Confidentiality of Alcohol and Drug Abuse Patient Records regulations: The Federal rules restrict any use of the information to criminally investigate or prosecute any alcohol or drug abuse patient.[facility] CincinnatiIn the event this information is protected by the Federal Confidentiality of Alcohol and Drug Abuse Patient Records regulations: The Federal rules restrict any use of the information to criminally investigate or prosecute any alcohol or drug abuse patient.[facility] CincinnatiIn the event this information is protected by the Federal Confidentiality of Alcohol and Drug Abuse Patient Records regulations: The Federal rules restrict any use of the information to criminally investigate or prosecute any alcohol or drug abuse patient.[facility] CincinnatiIn the event this information is protected by the Federal Confidentiality of Alcohol and Drug Abuse Patient Records regulations: The Federal rules restrict any use of the information to criminally investigate or prosecute any alcohol or drug abuse patient.[facility] CincinnatiIn the event this information is protected by the Federal Confidentiality of Alcohol and Drug Abuse Patient Records regulations: The Federal rules restrict any use of the information to criminally investigate or prosecute any alcohol or drug abuse patient.[facility] CincinnatiIn the event this information is protected by the Federal Confidentiality of Alcohol and Drug Abuse Patient Records regulations: The Federal rules restrict any use of the information to criminally investigate or prosecute any alcohol or drug abuse patient.[facility] CincinnatiIn the event this information is protected by the Federal Confidentiality of Alcohol and Drug Abuse Patient Records regulations: The Federal rules restrict any use of the information to criminally investigate or prosecute any alcohol or drug abuse patient.[facility] CincinnatiIn the event this information is protected by the Federal Confidentiality of Alcohol and Drug Abuse Patient Records regulations: The Federal rules restrict any use of the information to criminally investigate or prosecute any alcohol or drug abuse patient.[facility] CincinnatiIn the event this information is protected by the Federal Confidentiality of Alcohol and Drug Abuse Patient Records regulations: The Federal rules restrict any use of the information to criminally investigate or prosecute any alcohol or drug abuse patient.[facility] CincinnatiIn the event this information is protected by the Federal Confidentiality of Alcohol and Drug Abuse Patient Records regulations: The Federal rules restrict any use of the information to criminally investigate or prosecute any alcohol or drug abuse patient.[facility] CincinnatiIn the event this information is protected by the Federal Confidentiality of Alcohol and Drug Abuse Patient Records regulations: The Federal rules restrict any use of the information to criminally investigate or prosecute any alcohol or drug abuse patient.[facility] CincinnatiIn the event this information is protected by the Federal Confidentiality of Alcohol and Drug Abuse Patient Records regulations: The Federal rules restrict any use of the information to criminally investigate or prosecute any alcohol or drug abuse patient.[facility] CincinnatiIn the event this information is protected by the Federal Confidentiality of Alcohol and Drug Abuse Patient Records regulations: The Federal rules restrict any use of the information to criminally investigate or prosecute any alcohol or drug abuse patient.[facility] CincinnatiIn the event this information is protected by the Federal Confidentiality of Alcohol and Drug Abuse Patient Records regulations: The Federal rules restrict any use of the information to criminally investigate or prosecute any alcohol or drug abuse patient.[facility] CincinnatiIn the event this information is protected by the Federal Confidentiality of Alcohol and Drug Abuse Patient Records regulations: The Federal rules restrict any use of the information to criminally investigate or prosecute any alcohol or drug abuse patient.[facility] CincinnatiIn the event this information is protected by the Federal Confidentiality of Alcohol and Drug Abuse Patient Records regulations: The Federal rules restrict any use of the information to criminally investigate or prosecute any alcohol or drug abuse patient.[facility] CincinnatiIn the event this information is protected by the Federal Confidentiality of Alcohol and Drug Abuse Patient Records regulations: The Federal rules restrict any use of the information to criminally investigate or prosecute any alcohol or drug abuse patient.[facility] CincinnatiIn the event this information is protected by the Federal Confidentiality of Alcohol and Drug Abuse Patient Records regulations: The Federal rules restrict any use of the information to criminally investigate or prosecute any alcohol or drug abuse patient.[facility] CincinnatiIn the event this information is protected by the Federal Confidentiality of Alcohol and Drug Abuse Patient Records regulations: The Federal rules restrict any use of the information to criminally investigate or prosecute any alcohol or drug abuse patient.[facility] CincinnatiIn the event this information is protected by the Federal Confidentiality of Alcohol and Drug Abuse Patient Records regulations: The Federal rules restrict any use of the information to criminally investigate or prosecute any alcohol or drug abuse patient.[facility] CincinnatiIn the event this information is protected by the Federal Confidentiality of Alcohol and Drug Abuse Patient Records regulations: The Federal rules restrict any use of the information to criminally investigate or prosecute any alcohol or drug abuse patient.[facility] CincinnatiIn the event this information is protected by the Federal Confidentiality of Alcohol and Drug Abuse Patient Records regulations: The Federal rules restrict any use of the information to criminally investigate or prosecute any alcohol or drug abuse patient.[facility] [place]In the event this information is protected by the Federal Confidentiality of Alcohol and Drug Abuse Patient Records regulations: The Federal rules restrict any use of the information to criminally investigate or prosecute any alcohol or drug abuse patient.[facility] [place]In the event this information is protected by the Federal Confidentiality of Alcohol and Drug Abuse Patient Records regulations: The Federal rules restrict any use of the information to criminally investigate or prosecute any alcohol or drug abuse patient.[facility] [place]In the event this information is protected by the Federal Confidentiality of Alcohol and Drug Abuse Patient Records regulations: The Federal rules restrict any use of the information to criminally investigate or prosecute any alcohol or drug abuse patient.[facility] [place]In the event this information is protected by the Federal Confidentiality of Alcohol and Drug Abuse Patient Records regulations: The Federal rules restrict any use of the information to criminally investigate or prosecute any alcohol or drug abuse patient.[facility] [place]In the event this information is protected by the Federal Confidentiality of Alcohol and Drug Abuse Patient Records regulations: The Federal rules restrict any use of the information to criminally investigate or prosecute any alcohol or drug abuse patient.[facility] [place]In the event this information is protected by the Federal Confidentiality of Alcohol and Drug Abuse Patient Records regulations: The Federal rules restrict any use of the information to criminally investigate or prosecute any alcohol or drug abuse patient.[facility] [place]In the event this information is protected by the Federal Confidentiality of Alcohol and Drug Abuse Patient Records regulations: The Federal rules restrict any use of the information to criminally investigate or prosecute any alcohol or drug abuse patient.[facility] [place]In the event this information is protected by the Federal Confidentiality of Alcohol and Drug Abuse Patient Records regulations: The Federal rules restrict any use of the information to criminally investigate or prosecute any alcohol or drug abuse patient.[facility] [place]In the event this information is protected by the Federal Confidentiality of Alcohol and Drug Abuse Patient Records regulations: The Federal rules restrict any use of the information to criminally investigate or prosecute any alcohol or drug abuse patient.[facility] [place]In the event this information is protected by the Federal Confidentiality of Alcohol and Drug Abuse Patient Records regulations: The Federal rules restrict any use of the information to criminally investigate or prosecute any alcohol or drug abuse patient.[facility] [place]In the event this information is protected by the Federal Confidentiality of Alcohol and Drug Abuse Patient Records regulations: The Federal rules restrict any use of the information to criminally investigate or prosecute any alcohol or drug abuse patient.[facility] [place]In the event this information is protected by the Federal Confidentiality of Alcohol and Drug Abuse Patient Records regulations: The Federal rules restrict any use of the information to criminally investigate or prosecute any alcohol or drug abuse patient.[facility] [place]In the event this information is protected by the Federal Confidentiality of Alcohol and Drug Abuse Patient Records regulations: The Federal rules restrict any use of the information to criminally investigate or prosecute any alcohol or drug abuse patient.[facility] [place]In the event this information is protected by the Federal Confidentiality of Alcohol and Drug Abuse Patient Records regulations: The Federal rules restrict any use of the information to criminally investigate or prosecute any alcohol or drug abuse patient.[facility] [place]In the event this information is protected by the Federal Confidentiality of Alcohol and Drug Abuse Patient Records regulations: The Federal rules restrict any use of the information to criminally investigate or prosecute any alcohol or drug abuse patient.[facility] [place]In the event this information is protected by the Federal Confidentiality of Alcohol and Drug Abuse Patient Records regulations: The Federal rules restrict any use of the information to criminally investigate or prosecute any alcohol or drug abuse patient.[facility] [place]In the event this information is protected by the Federal Confidentiality of Alcohol and Drug Abuse Patient Records regulations: The Federal rules restrict any use of the information to criminally investigate or prosecute any alcohol or drug abuse patient.[facility] [place]In the event this information is protected by the Federal Confidentiality of Alcohol and Drug Abuse Patient Records regulations: The Federal rules restrict any use of the information to criminally investigate or prosecute any alcohol or drug abuse patient.[facility] [place]In the event this information is protected by the Federal Confidentiality of Alcohol and Drug Abuse Patient Records regulations: The Federal rules restrict any use of the information to criminally investigate or prosecute any alcohol or drug abuse patient.[facility] CincinnatiIn the event this information is protected by the Federal Confidentiality of Alcohol and Drug Abuse Patient Records regulations: The Federal rules restrict any use of the information to criminally investigate or prosecute any alcohol or drug abuse patient.[facility] [place]In the event this information is protected by the Federal Confidentiality of Alcohol and Drug Abuse Patient Records regulations: The Federal rules restrict any use of the information to criminally investigate or prosecute any alcohol or drug abuse patient.[facility] [place]In the event this information is protected by the Federal Confidentiality of Alcohol and Drug Abuse Patient Records regulations: The Federal rules restrict any use of the information to criminally investigate or prosecute any alcohol or drug abuse patient.[facility] [place]In the event this information is protected by the Federal Confidentiality of Alcohol and Drug Abuse Patient Records regulations: The Federal rules restrict any use of the information to criminally investigate or prosecute any alcohol or drug abuse patient.[facility] [place]In the event this information is protected by the Federal Confidentiality of Alcohol and Drug Abuse Patient Records regulations: The Federal rules restrict any use of the information to criminally investigate or prosecute any alcohol or drug abuse patient.[facility] [place]In the event this information is protected by the Federal Confidentiality of Alcohol and Drug Abuse Patient Records regulations: The Federal rules restrict any use of the information to criminally investigate or prosecute any alcohol or drug abuse patient.[facility] [place]In the event this information is protected by the Federal Confidentiality of Alcohol and Drug Abuse Patient Records regulations: The Federal rules restrict any use of the information to criminally investigate or prosecute any alcohol or drug abuse patient.[facility] [place]In the event this information is protected by the Federal Confidentiality of Alcohol and Drug Abuse Patient Records regulations: The Federal rules restrict any use of the information to criminally investigate or prosecute any alcohol or drug abuse patient.[facility] [place]In the event this information is protected by the Federal Confidentiality of Alcohol and Drug Abuse Patient Records regulations: The Federal rules restrict any use of the information to criminally investigate or prosecute any alcohol or drug abuse patient.[facility] [place]In the event this information is protected by the Federal Confidentiality of Alcohol and Drug Abuse Patient Records regulations: The Federal rules restrict any use of the information to criminally investigate or prosecute any alcohol or drug abuse patient.[facility] [place]In the event this information is protected by the Federal Confidentiality of Alcohol and Drug Abuse Patient Records regulations: The Federal rules restrict any use of the information to criminally investigate or prosecute any alcohol or drug abuse patient.[facility] [place]In the event this information is protected by the Federal Confidentiality of Alcohol and Drug Abuse Patient Records regulations: The Federal rules restrict any use of the information to criminally investigate or prosecute any alcohol or drug abuse patient.[facility] [place]In the event this information is protected by the Federal Confidentiality of Alcohol and Drug Abuse Patient Records regulations: The Federal rules restrict any use of the information to criminally investigate or prosecute any alcohol or drug abuse patient.[facility] [place]In the event this information is protected by the Federal Confidentiality of Alcohol and Drug Abuse Patient Records regulations: The Federal rules restrict any use of the information to criminally investigate or prosecute any alcohol or drug abuse patient.[facility] [place]In the event this information is protected by the Federal Confidentiality of Alcohol and Drug Abuse Patient Records regulations: The Federal rules restrict any use of the information to criminally investigate or prosecute any alcohol or drug abuse patient.[facility] [place]In the event this information is protected by the Federal Confidentiality of Alcohol and Drug Abuse Patient Records regulations: The Federal rules restrict any use of the information to criminally investigate or prosecute any alcohol or drug abuse patient.[facility] [place]In the event this information is protected by the Federal Confidentiality of Alcohol and Drug Abuse Patient Records regulations: The Federal rules restrict any use of the information to criminally investigate or prosecute any alcohol or drug abuse patient.[facility] [place]In the event this information is protected by the Federal Confidentiality of Alcohol and Drug Abuse Patient Records regulations: The Federal rules restrict any use of the information to criminally investigate or prosecute any alcohol or drug abuse patient.[facility] [place]In the event this information is protected by the Federal Confidentiality of Alcohol and Drug Abuse Patient Records regulations: The Federal rules restrict any use of the information to criminally investigate or prosecute any alcohol or drug abuse patient.[facility] [place]In the event this information is protected by the Federal Confidentiality of Alcohol and Drug Abuse Patient Records regulations: The Federal rules restrict any use of the information to criminally investigate or prosecute any alcohol or drug abuse patient.[facility] [place]In the event this information is protected by the Federal Confidentiality of Alcohol and Drug Abuse Patient Records regulations: The Federal rules restrict any use of the information to criminally investigate or prosecute any alcohol or drug abuse patient.[facility] [place]In the event this information is protected by the Federal Confidentiality of Alcohol and Drug Abuse Patient Records regulations: The Federal rules restrict any use of the information to criminally investigate or prosecute any alcohol or drug abuse patient.[facility] CincinnatiIn the event this information is protected by the Federal Confidentiality of Alcohol and Drug Abuse Patient Records regulations: The Federal rules restrict any use of the information to criminally investigate or prosecute any alcohol or drug abuse patient.[facility] CincinnatiIn the event this information is protected by the Federal Confidentiality of Alcohol and Drug Abuse Patient Records regulations: The Federal rules restrict any use of the information to criminally investigate or prosecute any alcohol or drug abuse patient.[facility] CincinnatiIn the event this information is protected by the Federal Confidentiality of Alcohol and Drug Abuse Patient Records regulations: The Federal rules restrict any use of the information to criminally investigate or prosecute any alcohol or drug abuse patient.[facility] CincinnatiIn the event this information is protected by the Federal Confidentiality of Alcohol and Drug Abuse Patient Records regulations: The Federal rules restrict any use of the information to criminally investigate or prosecute any alcohol or drug abuse patient.[facility] CincinnatiIn the event this information is protected by the Federal Confidentiality of Alcohol and Drug Abuse Patient Records regulations: The Federal rules restrict any use of the information to criminally investigate or prosecute any alcohol or drug abuse patient.[facility] [place]In the event this information is protected by the Federal Confidentiality of Alcohol and Drug Abuse Patient Records regulations: The Federal rules restrict any use of the information to criminally investigate or prosecute any alcohol or drug abuse patient.[facility] [place]In the event this information is protected by the Federal Confidentiality of Alcohol and Drug Abuse Patient Records regulations: The Federal rules restrict any use of the information to criminally investigate or prosecute any alcohol or drug abuse patient.[facility] [place]In the event this information is protected by the Federal Confidentiality of Alcohol and Drug Abuse Patient Records regulations: The Federal rules restrict any use of the information to criminally investigate or prosecute any alcohol or drug abuse patient.[facility] [place]In the event this information is protected by the Federal Confidentiality of Alcohol and Drug Abuse Patient Records regulations: The Federal rules restrict any use of the information to criminally investigate or prosecute any alcohol or drug abuse patient.[facility] [place]In the event this information is protected by the Federal Confidentiality of Alcohol and Drug Abuse Patient Records regulations: The Federal rules restrict any use of the information to criminally investigate or prosecute any alcohol or drug abuse patient.[facility] [place]In the event this information is protected by the Federal Confidentiality of Alcohol and Drug Abuse Patient Records regulations: The Federal rules restrict any use of the information to criminally investigate or prosecute any alcohol or drug abuse patient.[facility] [place]In the event this information is protected by the Federal Confidentiality of Alcohol and Drug Abuse Patient Records regulations: The Federal rules restrict any use of the information to criminally investigate or prosecute any alcohol or drug abuse patient.[facility] [place]In the event this information is protected by the Federal Confidentiality of Alcohol and Drug Abuse Patient Records regulations: The Federal rules restrict any use of the information to criminally investigate or prosecute any alcohol or drug abuse patient.[facility] [place]In the event this information is protected by the Federal Confidentiality of Alcohol and Drug Abuse Patient Records regulations: The Federal rules restrict any use of the information to criminally investigate or prosecute any alcohol or drug abuse patient.[facility] [place]In the event this information is protected by the Federal Confidentiality of Alcohol and Drug Abuse Patient Records regulations: The Federal rules restrict any use of the information to criminally investigate or prosecute any alcohol or drug abuse patient.[facility] [place]In the event this information is protected by the Federal Confidentiality of Alcohol and Drug Abuse Patient Records regulations: The Federal rules restrict any use of the information to criminally investigate or prosecute any alcohol or drug abuse patient.[facility] [place]In the event this information is protected by the Federal Confidentiality of Alcohol and Drug Abuse Patient Records regulations: The Federal rules restrict any use of the information to criminally investigate or prosecute any alcohol or drug abuse patient.[facility] [place]In the event this information is protected by the Federal Confidentiality of Alcohol and Drug Abuse Patient Records regulations: The Federal rules restrict any use of the information to criminally investigate or prosecute any alcohol or drug abuse patient.[facility] [place]In the event this information is protected by the Federal Confidentiality of Alcohol and Drug Abuse Patient Records regulations: The Federal rules restrict any use of the information to criminally investigate or prosecute any alcohol or drug abuse patient.[facility] CincinnatiIn the event this information is protected by the Federal Confidentiality of Alcohol and Drug Abuse Patient Records regulations: The Federal rules restrict any use of the information to criminally investigate or prosecute any alcohol or drug abuse patient.[facility] [place]In the event this information is protected by the Federal Confidentiality of Alcohol and Drug Abuse Patient Records regulations: The Federal rules restrict any use of the information to criminally investigate or prosecute any alcohol or drug abuse patient.[facility] [place]In the event this information is protected by the Federal Confidentiality of Alcohol and Drug Abuse Patient Records regulations: The Federal rules restrict any use of the information to criminally investigate or prosecute any alcohol or drug abuse patient.[facility] [place]In the event this information is protected by the Federal Confidentiality of Alcohol and Drug Abuse Patient Records regulations: The Federal rules restrict any use of the information to criminally investigate or prosecute any alcohol or drug abuse patient.[facility] CincinnatiIn the event this information is protected by the Federal Confidentiality of Alcohol and Drug Abuse Patient Records regulations: The Federal rules restrict any use of the information to criminally investigate or prosecute any alcohol or drug abuse patient.[facility] [place]In the event this information is protected by the Federal Confidentiality of Alcohol and Drug Abuse Patient Records regulations: The Federal rules restrict any use of the information to criminally investigate or prosecute any alcohol or drug abuse patient.[facility] [place]In the event this information is protected by the Federal Confidentiality of Alcohol and Drug Abuse Patient Records regulations: The Federal rules restrict any use of the information to criminally investigate or prosecute any alcohol or drug abuse patient.[facility] [place]In the event this information is protected by the Federal Confidentiality of Alcohol and Drug Abuse Patient Records regulations: The Federal rules restrict any use of the information to criminally investigate or prosecute any alcohol or drug abuse patient.[facility] [place]In the event this information is protected by the Federal Confidentiality of Alcohol and Drug Abuse Patient Records regulations: The Federal rules restrict any use of the information to criminally investigate or prosecute any alcohol or drug abuse patient.[facility] [place]In the event this information is protected by the Federal Confidentiality of Alcohol and Drug Abuse Patient Records regulations: The Federal rules restrict any use of the information to criminally investigate or prosecute any alcohol or drug abuse patient.[facility] [place]In the event this information is protected by the Federal Confidentiality of Alcohol and Drug Abuse Patient Records regulations: The Federal rules restrict any use of the information to criminally investigate or prosecute any alcohol or drug abuse patient.[facility] [place]In the event this information is protected by the Federal Confidentiality of Alcohol and Drug Abuse Patient Records regulations: The Federal rules restrict any use of the information to criminally investigate or prosecute any alcohol or drug abuse patient.[facility] [place]In the event this information is protected by the Federal Confidentiality of Alcohol and Drug Abuse Patient Records regulations: The Federal rules restrict any use of the information to criminally investigate or prosecute any alcohol or drug abuse patient.[facility] [place]In the event this information is protected by the Federal Confidentiality of Alcohol and Drug Abuse Patient Records regulations: The Federal rules restrict any use of the information to criminally investigate or prosecute any alcohol or drug abuse patient.[facility] [place]In the event this information is protected by the Federal Confidentiality of Alcohol and Drug Abuse Patient Records regulations: The Federal rules restrict any use of the information to criminally investigate or prosecute any alcohol or drug abuse patient.[facility] CincinnatiIn the event this information is protected by the Federal Confidentiality of Alcohol and Drug Abuse Patient Records regulations: The Federal rules restrict any use of the information to criminally investigate or prosecute any alcohol or drug abuse patient.[facility] Reason for Visit (unrecogniz ed section and content) Reason Comments Physical Therapy Specialty Diagnoses / Procedures Referred By Contac t Referred To Contact [facility] Diagnoses Primary osteoarthritis of left knee Procedures CONSULT TO PHYSICAL THERAPY PHYSICAL THERAPY EVALUATION HIGH COMPLEX 45 MINS Kobe Templeton PA-C [address] [place] [address] [facility] [place] [address] [place] [address] Referral ID Status Reason Start Date Expiration Date Visits Requested Visits Authorized [id number] Authorized Auto-Generat ed Referral 03/29/2024 30 30 Reason Comments PT Progress Note Reason Comments PT Eval Specialty Diagnoses / Procedures Referred By Contac t Referred To Contact PHYSICAL THERAPY Diagnoses KNEE PAIN EVAL Procedures NEW RS PT TOTAL JOINT Kobe Templeton PA-C [address] [place] [address] [address] [place] [id number] [address] [place] [address] Referral ID Status Reason Start Date Expiration Date V isits Requested Visits Authorized [id number] Authorized 04/12/2023 04/11/2024 30 30 Specialty Diagnoses / Procedures Referred By Contac t Referred To Contact Physical Therapy / PHYSICAL THERAPY Diagnoses M25.511 (ICD-10-CM) - Acute pain of right shoulder 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 Procedures EST RS PT ORTH Sivakumar Macario PA-C [address] [place] [address] Crow Elliott, MACIEL Referral ID Status Reason Start Date Expiration Date V isits Requested Visits Authorized [id number] Authorized 04/12/2022 04/11/2023 30 30 Specialty Diagnoses / Procedures Referred By Contac t Referred To Contact [facility] Diagnoses Acute pain of right shoulder Snapping scapula syndrome of right shoulder Procedures CONSULT TO PHYSICAL THERAPY PHYSICAL THERAPY EVALUATION HIGH COMPLEX 45 MINS Sivakumar Matamoros PA-C [address] [place] [address] [facility] [address] [address] Referral ID Status Reason Start Date Expiration Date V isits Requested Visits Authorized [id number] Authorized 04/12/2021 04/11/2022 20 20 Reason Comments Pain right shoulder Fall 2 weeks ago Reason Comments Patient Question Reason Comments Orders Reason Comments Follow Up Reason Comments Insurance Authorization Reason Onset Date Comments Nanotechnologist - Other 03/02/2022 Reason Comments Refill Request Increase dose Reason Onset Date Comments Care Coordination 03/12/2022 Reason Comments PT Eval Specialty Diagnoses / Procedures Referred By Contac t Referred To Contact [facility] Diagnoses Arthritis of left knee Procedures CONSULT TO PHYSICAL THERAPY PHYSICAL THERAPY EVALUATION HIGH COMPLEX 45 MINS Sivakumar Matamoros PA-C [address] [place] [address] [facility] [address] [address] Referral ID Status Reason Start Date Expiration Date V isits Requested Visits Authorized [id number] Authorized 04/12/2021 04/11/2022 10 10 Reason Comments Insurance Authorization Pristiq Reason Comments Medication Update Refill Auth Consent Reason Comments New Pain Specialty Diagnoses / Procedures Referred By Contac t Referred To Contact Orthopedics Diagnoses Arthritis of left knee Procedures CONSULT TO ORTHOPAEDICS OFFICE/OUTPATIENT NEW HIGH MDM 60-74 MINUTES Sivakumar Matamoros PA-C [address] [place] [address] Referral ID Status Reason Start Date Expiration Date V isits Requested Visits Authorized [id number] Closed PCP Requested Referral 03/18/2022 03/04/2023 1 1 Reason Comments Physical Therapy Specialty Diagnoses / Procedures Referred By Contac t Referred To Contact Physical Therapy / PHYSICAL THERAPY Diagnoses M25.511 (ICD-10-CM) - Acute pain of right shoulder 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 Reason Onset Date Comments Refill Request 07/13/2022 Reason Comments Results Reason Comments Mammogram Result Call Back Reason Comments Weight Management Reason Onset Date Comments Refill Request 10/08/2022 Reason Onset Date Comments Care Coordination 10/28/2022 Reason Comments Bilateral Knee Pain Reason Comments Comprehensive Eye Exam Reason Comments Radiology US Specialty Diagnoses / Procedures Referred By Contac t Referred To Contact [facility] Diagnoses Inconclusive mammogram Procedures US BREAST LTD LEFT US BREAST UNI REAL TIME WITH IMAGE LIMITED Sivakumar Matamoros, MARITZA [address] [place] [address] [facility] [address] [place] [address] Referral ID Status Reason Start Date Expiration Date V isits Requested Visits Authorized [id number] Closed Auto-Generate d Referral 07/18/2022 08/17/2023 1 1 Reason Comments Established Patient Knee Pain Reason Onset Date Comments Care Coordination 03/15/2023 Specialty Diagnoses / Procedures Referred By Contac t Referred To Contact [facility] Home Care [address] [place] [id number] Referral ID Status Reason Start Date Expiration Date Visits Re quested Visits Authorized [id number] 1 1 Reason Comments Home Care Bandage removal Reason Onset Date Comments Refill Request 05/20/2023 Reason Comments Established Patient Follow Up Post Op Knee Replacement Reason Comments Pre-Op Visit Knee Replacement Reason Comments Established Patient Follow Up Post Op Knee Replacement Knee Pain Reason Onset Date Comments Refill Request 08/06/2023 Reason Onset Date Comments Refill Request 08/12/2023 Reason Comments Post Op Knee Replacement Reason Comments Follow Up medication Reason Comments Results Reason Comments Follow Up Knee Replacement Reason Comments Acute Visit Congestion, body ach es, cough, chest tightness, sx started last night Reason Comments Yearly Exam Reason Comments Back Pain Reason Onset Date Comments Care Coordination 01/21/2024 Reason Onset Date Comments Refill Request 01/31/2024 Reason Onset Date Comments Refill Request 03/16/2024 Reason Comments Refill Request [facility] managed refill Reason Comments Refill Request Reason Comments Sinusitis Reason Onset Date Comments Refill Request 07/17/2024 Reason Onset Date Comments Care Coordination 08/01/2024 Reason Comments Acute Visit Elevated bp and stre ss Reason Comments Med Change Request Care Teams (unrecognized sec tion and content) Bagger Meat Relationship Specialty Start Date End Date Sivakumar Matamoros PA-C [address] [facility] [place] [address] PCP - General Family Practice 09/16/18 Beverly Arce, RN EHP Nanotechnologist 04/22/19 Bagger Meat Relationship Specialty Start Date End Date Sivakumar Matamoros PA-C [address] [facility] [place] [address] PCP - General Family Practice 09/16/18 Beverly Arce, RN EHP Nanotechnologist 04/22/19 Bagger Meat Relationship Specialty Start Date End Date Sivakumar Matamoros PA-C [address] [facility] [place] [address] PCP - General Family Practice 09/16/18 Beverly Arce, RN EHP Nanotechnologist 04/22/19 Bagger Meat Relationship Specialty Start Date End Date Sivakumar Matamoros PA-C [address] [facility] [place] [address] PCP - General Family Practice 09/16/18 Beverly Arce, RN EHP Nanotechnologist 04/22/19 Bagger Meat Relationship Specialty Start Date End Date Sivakumar Matamoros PA-C [address] [facility] [place] [address] PCP - General Family Practice 09/16/18 Beverly Arce, RN EHP Nanotechnologist 04/22/19 Bagger Meat Relationship Specialty Start Date End Date Sivakumar Matamoros PA-C [address] [facility] [place] [address] PCP - General Family Practice 09/16/18 Beverly Arce, RN EHP Nanotechnologist 04/22/19 Bagger Meat Relationship Specialty Start Date End Date Sivakumar Matamoros PA-C [address] [facility] [place] [address] PCP - General Family Practice 09/16/18 Beverly Arce, RN EHP Nanotechnologist 04/22/19 Bagger Meat Relationship Specialty Start Date End Date Sivakumar Matamoros PA-C [address] [facility] [place] [address] PCP - General Family Practice 09/16/18 Beverly Arce, RN EHP Nanotechnologist 04/22/19 Bagger Meat Relationship Specialty Start Date End Date Sivakumar Matamoros PA-C [address] [facility] [place] [address] PCP - General Family Practice 09/16/18 Beverly Arce RN EHP Nanotechnologist 04/22/19 Bagger Meat Relationship Specialty Start Date End Date Sivakumar Matamoros PA-C [address] [facility] [place] [address] PCP - General Family Practice 09/16/18 Beverly Arce, RN EHP Nanotechnologist 04/22/19 Bagger Meat Relationship Specialty Start Date End Date Sivakumar Matamoros PA-C [address] [facility] [place] [address] PCP - General Family Medicine 09/16/18 Beverly Arce, RN EHP Nanotechnologist 04/22/19 Bagger Meat Relationship Specialty Start Date End Date Sivakumar Matamoros PA-C [address] [facility] [place] [address] PCP - General Family Medicine 09/16/18 Beverly Arce, RN EHP Nanotechnologist 04/22/19 Bagger Meat Relationship Specialty Start Date End Date Sivakumar Matamoros PA-C [address] [facility] [place] [address] PCP - General Family Medicine 09/16/18 Beverly Arce, RN EHP Nanotechnologist 04/22/19 Bagger Meat Relationship Specialty Start Date End Date Sivakumar Matamoros PA-C [address] [facility] [place] [address] PCP - General Family Medicine 09/16/18 Beverly Arce, RN EHP Nanotechnologist 04/22/19 Bagger Meat Relationship Specialty Start Date End Date Sivakumar Matamoros PA-C [address] [facility] [place] [address] PCP - General Family Medicine 09/16/18 Beverly Arce, RN EHP Nanotechnologist 04/22/19 Bagger Meat Relationship Specialty Start Date End Date Sivakumar Matamoros PA-C [address] [facility] [place] [address] PCP - General Family Medicine 09/16/18 Beverly Arce, RN EHP Nanotechnologist 04/22/19 Bagger Meat Relationship Specialty Start Date End Date Sivakumar Matamoros PA-C [address] [facility] [place] [address] PCP - General Family Medicine 09/16/18 Beverly Arce, RN EHP Nanotechnologist 04/22/19 Bagger Meat Relationship Specialty Start Date End Date Sivakumar Maatmoros PA-C [address] [facility] [place] [address] PCP - General Family Medicine 09/16/18 Beverly Arce, RN EHP Nanotechnologist 04/22/19 Bagger Meat Relationship Specialty Start Date End Date Sivakumar Matamoros PA-C [address] [facility] [place] [address] PCP - General Family Medicine 09/16/18 Beverly Arce, RN EHP Nanotechnologist 04/22/19 Bagger Meat Relationship Specialty Start Date End Date Sivakumar Matamoros PA-C [address] [facility] [place] [address] PCP - General Family Medicine 09/16/18 Beverly Arce, RN EHP Nanotechnologist 04/22/19 Bagger Meat Relationship Specialty Start Date End Date Sivakumar Matamoros PA-C [address] [facility] [place] [address] PCP - General Family Medicine 09/16/18 Beverly Arce, RN EHP Nanotechnologist 04/22/19 Bagger Meat Relationship Specialty Start Date End Date Sivakumar Matamoros PA-C [address] [facility] [place] [address] PCP - General Family Medicine 09/16/18 Beverly Arce, RN EHP Nanotechnologist 04/22/19 Bagger Meat Relationship Specialty Start Date End Date Sivakumar Matamoros PA-C [address] [facility] [place] [address] PCP - General Family Medicine 09/16/18 Beverly Arce, RN EHP Nanotechnologist 04/22/19 Bagger Meat Relationship Specialty Start Date End Date Sivakumar Matamoros PA-C [address] [facility] [place] [address] PCP - General Family Medicine 09/16/18 Beverly Arce, RN EHP Nanotechnologist 04/22/19 Bagger Meat Relationship Specialty Start Date End Date Sivakumar Matamoros PA-C [address] [facility] [place] [address] PCP - General Family Medicine 09/16/18 Beverly Arce, RN EHP Nanotechnologist 04/22/19 Bagger Meat Relationship Specialty Start Date End Date Sivakumar Matamoros PA-C [address] [facility] [place] [address] PCP - General Family Medicine 09/16/18 Beverly Arce, RN EHP Nanotechnologist 04/22/19 Bagger Meat Relationship Specialty Start Date End Date Sivakumar Matamoros PA-C [address] [facility] [place] [address] PCP - General Family Medicine 09/16/18 Beverly Arce, RN EHP Nanotechnologist 04/22/19 Bagger Meat Relationship Specialty Start Date End Date Sivakumar Matamoros PA-C [address] [facility] [place] [address] PCP - General Family Medicine 09/16/18 Beverly Arce, RN EHP Nanotechnologist 04/22/19 Bagger Meat Relationship Specialty Start Date End Date Sivakumar Matamoros PA-C [address] [facility] [place] [address] PCP - General Family Medicine 09/16/18 Beverly Arce, RN EHP Nanotechnologist 04/22/19 Bagger Meat Relationship Specialty Start Date End Date Sivakumar Matamoros PA-C [address] [facility] [place] [address] PCP - General Family Medicine 09/16/18 Beverly Arce, RN EHP Nanotechnologist 04/22/19 Bagger Meat Relationship Specialty Start Date End Date Sivakumar Matamoros PA-C [address] [facility] [place] [address] PCP - General Family Medicine 09/16/18 Beverly Arce, RN EHP Nanotechnologist 04/22/19 Bagger Meat Relationship Specialty Start Date End Date Sivakumar Matamoros PA-C [address] [facility] [place] [address] PCP - General Family Medicine 09/16/18 Beverly Arce, RN EHP Nanotechnologist 04/22/19 Bagger Meat Relationship Specialty Start Date End Date Sivakumar Matamoros PA-C [address] [place] [address] PCP - General Family Medicine 09/16/18 Beverly Arce, RN EHP Nanotechnologist 04/22/19 Bagger Meat Relationship Specialty Start Date End Date Sivakumar Matamoros PA-C [address] [facility] [place] [address] PCP - General Family Medicine 09/16/18 Beverly Arce, RN EHP Nanotechnologist 04/22/19 Bagger Meat Relationship Specialty Start Date End Date Sivakumar Matamoros PA-C [address] [facility] [place] [address] PCP - General Family Medicine 09/16/18 Beverly Arce, RN EHP Nanotechnologist 04/22/19 Bagger Meat Relationship Specialty Start Date End Date Sivakumar Matamoros PA-C [address] [facility] [place] [address] PCP - General Family Medicine 09/16/18 Beverly Arce, RN EHP Nanotechnologist 04/22/19 Bagger Meat Relationship Specialty Start Date End Date Sivakumar Matamoros PA-C [address] [facility] [place] [address] PCP - General Family Medicine 09/16/18 Beverly Arce, RN EHP Nanotechnologist 04/22/19 Bagger Meat Relationship Specialty Start Date End Date Sivakumar Matamoros PA-C [address] [facility] [place] [address] PCP - General Family Medicine 09/16/18 Beverly Arce, RN EHP Nanotechnologist 04/22/19 Bagger Meat Relationship Specialty Start Date End Date Sivakumar Matamoros PA-C [address] [facility] [place] [address] PCP - General Family Medicine 09/16/18 Beverly Arce, RN EHP Nanotechnologist 04/22/19 Bagger Meat Relationship Specialty Start Date End Date Sivakumar Matamoros PA-C [address] [place] [address] PCP - General Family Medicine 09/16/18 Beverly Arce, RN EHP Nanotechnologist 04/22/19 Bagger Meat Relationship Specialty Start Date End Date Sivakumar Matamoros PA-C [address] [place] [address] PCP - General Family Medicine 09/16/18 Beverly Arce, RN EHP Nanotechnologist 04/22/19 Bagger Meat Relationship Specialty Start Date End Date Sivakumar Matamoros PA-C [address] [place] [address] PCP - General Family Medicine 09/16/18 Beverly Arce, RN EHP Nanotechnologist 04/22/19 Bagger Meat Relationship Specialty Start Date End Date Sivakumar Matamoros PA-C [address] [place] [address] PCP - General Family Medicine 09/16/18 Beverly Arce, RN EHP Nanotechnologist 04/22/19 Tcio Fox, PSS [facility] [address] [place] [address] Specialty Nanotechnologist Orthopedics 02/24/23 06/30/23 Bagger Meat Relationship Specialty Start Date End Date Heena Birch APRN.CNP [address] [place] [address] PCP - General Internal Medicine 04/16/23 Beverly Arce, RN EHP Nanotechnologist 04/22/19 Tico Fox, PSS [facility] [address] [place] [address] Specialty Nanotechnologist Orthopedics 02/24/23 06/30/23 Evangelina Zambrano MD [address] [address] Home Care Provider Orthopedics 05/10/23 Evangelina Zambrano MD [address] [place] [address] Referring Orthopedics 05/10/23 Marii Peraza, PT [address] [place] [address] Software Quality Analyst Post Acute Care 05/10/23 Bagger Meat Relationship Specialty Start Date End Date Heena Birch APRN.ASSOCIATE MERCHANDISE PLANNER [address] [place] [address] PCP - General Internal Medicine 04/16/23 Beverly Arce, RN EHP Nanotechnologist 04/22/19 Tico Fox, [facility] [address] [place] [address] Specialty Nanotechnologist Orthopedics 02/24/23 06/30/23 Evangelina Zambrano MD [address] [place] [address] Home Care Provider Orthopedics 05/10/23 Evangelina Zambrano MD [address] [place] [address] Referring Orthopedics 05/10/23 Marii Peraza, PT [address] [place], [place] [id number] Software Quality Analyst Post Acute Care 05/10/23 Bagger Meat Relationship Specialty Start Date End Date Heena Birch APRN.ASSOCIATE MERCHANDISE PLANNER [address] [place] [address] 256941 PCP - General Internal Medicine 04/16/23 Beverly Arce, PAMELLA EHP Nanotechnologist 04/22/19 Tico Fox, PSS [facility] [address] [place] [address] Specialty Nanotechnologist Orthopedics 02/24/23 06/30/23 Evangelina Zambrano MD [address] [place] [address] Home Care Provider Orthopedics 05/10/23 Evangelina Zambrano MD [address] [place] [address] Referring Orthopedics 05/10/23 Marii Peraza, PT [address] [place] [address] Software Quality Analyst Post Acute Care 05/10/23 Bagger Meat Relationship Specialty Start Date End Date Heena Birch APRN.ASSOCIATE MERCHANDISE PLANNER [address] [place] [address] PCP - General Internal Medicine 04/16/23 Beverly Arce, PAMELLA EHP Nanotechnologist 04/22/19 Tico Fox, PSS [facility] [address] [place] [address] Specialty Nanotechnologist Orthopedics 02/24/23 06/30/23 Evangelina Zambrano MD [address] [place] [address] Home Care Provider Orthopedics 05/10/23 Evangelina Zambrano MD [address] [place] [address] Referring Orthopedics 05/10/23 Marii Peraza, PT [address] [place], [place] [id number] Software Quality Analyst Post Acute Care 05/10/23 Bagger Meat Relationship Specialty Start Date End Date Heena Birch APRN.ASSOCIATE MERCHANDISE PLANNER [facility] [place] [address] PCP - General Internal Medicine 04/16/23 Beverly Arce, PAMELLA EHP Nanotechnologist 04/22/19 Tico Fox, PSS [facility] [address] [place] [address] Specialty Nanotechnologist Orthopedics 02/24/23 06/30/23 Evangelina Zambrano MD [address] [place] [address] Home Care Provider Orthopedics 05/10/23 Evangelina Zambrano MD [address] [place] [address] Referring Orthopedics 05/10/23 Marii Peraza, PT [address] [place] [phone] Software Quality Analyst Post Acute Care 05/10/23 Bagger Meat Relationship Specialty Start Date End Date Heena Birch APRN.ASSOCIATE MERCHANDISE PLANNER [address] [place] [address] PCP - General Internal Medicine 04/16/23 Beverly Arce RN EHP Nanotechnologist 04/22/19 Tico Fox, PSS [facility] [address] [place] [address] Specialty Nanotechnologist Orthopedics 02/24/23 06/30/23 Evangelina Zambrano MD [address] [place] [address] Home Care Provider Orthopedics 05/10/23 Evangelina Zambrano MD [address] [place] [address] Referring Orthopedics 05/10/23 Marii Peraza, PT [address] [place] [address] Software Quality Analyst Post Acute Care 05/10/23 Bagger Meat Relationship Specialty Start Date End Date Heena Birch APRN.ASSOCIATE MERCHANDISE PLANNER [address] [place] [address] PCP - General Internal Medicine 04/16/23 Beverly Arce, RN EHP Nanotechnologist 04/22/19 Tico Fox, PSS [facility] [address] [place] [address] Specialty Nanotechnologist Orthopedics 02/24/23 06/30/23 Evangelina Zambrano MD [address] [place] [address] Home Care Provider Orthopedics 05/10/23 Evangelina Zambrano MD [address] [place] [address] Referring Orthopedics 05/10/23 Marii Peraza, PT [address] [place] [address] Software Quality Analyst Post Acute Care 05/10/23 Bagger Meat Relationship Specialty Start Date End Date Heena Birch APRN.ASSOCIATE MERCHANDISE PLANNER [address] [place] [address] PCP - General Internal Medicine 04/16/23 Beverly Arce, PAMELLA EHP Nanotechnologist 04/22/19 Tico Fox, PSS [facility] [address] [place] [address] Specialty Nanotechnologist Orthopedics 02/24/23 06/30/23 Evangelina Zambrano MD [address] [place] [address] Home Care Provider Orthopedics 05/10/23 Evangelina Zambrano MD [address] [place] [address] Referring Orthopedics 05/10/23 Marii Peraza, PT [address] [place] [address] Software Quality Analyst Post Acute Care 05/10/23 Bagger Meat Relationship Specialty Start Date End Date Heena Birch APRN.ASSOCIATE MERCHANDISE PLANNER [address] [place] [address] PCP - General Internal Medicine 04/16/23 Beveryl Arce, RN EHP Nanotechnologist 04/22/19 Tico Fox, P[facility] [address] [place] [address] Specialty Nanotechnologist Orthopedics 02/24/23 06/30/23 Evangelina Zambrano MD [address] [place] [address] Home Care Provider Orthopedics 05/10/23 Evangelina Zambrano MD [address] [place] [address] Referring Orthopedics 05/10/23 Marii Peraza, PT [address] [place] [address] Software Quality Analyst Post Acute Care 05/10/23 Bagger Meat Relationship Specialty Start Date End Date Heena Birch APRN.ASSOCIATE MERCHANDISE PLANNER [address] [place] [address] PCP - General Internal Medicine 04/16/23 Beverly Arce, RN EHP Nanotechnologist 04/22/19 Tico Fox, P[facility] [address] [place] [address] Specialty Nanotechnologist Orthopedics 02/24/23 06/30/23 Evangelina Zambrano MD [address] [address] Home Care Provider Orthopedics 05/10/23 Evangelina Zambrano MD [address] [address] Referring Orthopedics 05/10/23 Marii Peraza, PT [address] [place] [address] Software Quality Analyst Post Acute Care 05/10/23 Bagger Meat Relationship Specialty Start Date End Date Heena Birch APRN.ASSOCIATE MERCHANDISE PLANNER [address] [place] [address] PCP - General Internal Medicine 04/16/23 Beverly Arce, PAMELLA EHP Nanotechnologist 04/22/19 Tico Fox [facility] [address] [place] [address] Specialty Nanotechnologist Orthopedics 02/24/23 06/30/23 Evangelina Zambrano MD [address] [place] [address] Home Care Provider Orthopedics 05/10/23 Evangelina Zambrano MD [address] [place] [address] Referring Orthopedics 05/10/23 Marii Peraza, PT [address] [place], [place] [phone] Software Quality Analyst Post Acute Care 05/10/23 Bagger Meat Relationship Specialty Start Date End Date Heena Birch APRN.ASSOCIATE MERCHANDISE PLANNER [address] [place] [address] [phone] PCP - General Internal Medicine 04/16/23 Beverly Arce, PAMELLA EHP Nanotechnologist 04/22/19 Tico Fox, [facility] [address] [place] [address] Specialty Nanotechnologist Orthopedics 02/24/23 06/30/23 Evangelina Zambrano MD [address] [place] [address] Home Care Provider Orthopedics 05/10/23 Evangelina Zambrano MD [address] [place] [address] Referring Orthopedics 05/10/23 Bagger Meat Relationship Specialty Start Date End Date Heena Birch APRN.ASSOCIATE MERCHANDISE PLANNER [address] [place] [address] PCP - General Internal Medicine 04/16/23 Beverly Arce RN EHP Nanotechnologist 04/22/19 Tico Fox, PSS [facility] [address] [place] [address] Specialty Nanotechnologist Orthopedics 02/24/23 06/30/23 Evangelina Zambrano MD [address] [place] [address] Home Care Provider Orthopedics 05/10/23 Evangelina Zambrano MD [address] [place] [address] Referring Orthopedics 05/10/23 Bagger Meat Relationship Specialty Start Date End Date Heena Birch APRN.ASSOCIATE MERCHANDISE PLANNER [address] [place] [address] PCP - General Internal Medicine 04/16/23 Beverly Arce RN EHP Nanotechnologist 04/22/19 Tico Fox, PSS [facility] [address] [place] [address] Specialty Nanotechnologist Orthopedics 02/24/23 06/30/23 Evangelian Zambrano MD [address] [place] [address] Home Care Provider Orthopedics 05/10/23 Evangelina Zambrano MD [address] [place] [address] Referring Orthopedics 05/10/23 Bagger Meat Relationship Specialty Start Date End Date Heena Birch APRN.ASSOCIATE MERCHANDISE PLANNER [address] [place] [address] PCP - General Internal Medicine 04/16/23 Beverly Arce, RN EHP Nanotechnologist 04/22/19 Tico Fox, PSS [facility] [address] [place] [address] Specialty Nanotechnologist Orthopedics 02/24/23 06/30/23 Evangelina Zambrano MD [address] [place] [address] 89573 Home Care Provider Orthopedics 05/10/23 Evangelina Zambrano MD [address] [place] [address] 62659 Referring Orthopedics 05/10/23 Bagger Meat Relationship Specialty Start Date End Date Heena Birch 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 [address] [place] [address] 13387 PCP - General Internal Medicine 04/16/23 Beverly Arce, RN EHP Nanotechnologist 04/22/19 Tico Fox, PSS [facility] [address] [place] [address] Specialty Nanotechnologist Orthopedics 02/24/23 06/30/23 Evangelina Zambrano MD [address] [place] [address] 23233 Home Care Provider Orthopedics 05/10/23 Evangelina Zambrano MD [address] [place] [address] 62862 Referring Orthopedics 05/10/23 Bagger Meat Relationship Specialty Start Date End Date Heena Birch APRN.ASSOCIATE MERCHANDISE PLANNER [address] [place] [address] 30800 PCP - General Internal Medicine 04/16/23 Beverly Arce, RN EHP Nanotechnologist 04/22/19 Tico Fox, PSS [facility] [address] [place] [address] Specialty Nanotechnologist Orthopedics 02/24/23 06/30/23 Evangelina Zambrano MD [address] [place] [address] 95029 Home Care Provider Orthopedics 05/10/23 Evangelina Zambrano MD [address] [place] [address] 69506 Referring Orthopedics 05/10/23 Bagger Meat Relationship Specialty Start Date End Date Heena Birch APRN.ASSOCIATE MERCHANDISE PLANNER [address] [place] [address] 99849 PCP - General Internal Medicine 04/16/23 Beverly Arce, PAMELLA EHP Nanotechnologist 04/22/19 Tico Fox, PSS [facility] [address] [place] [address] Specialty Nanotechnologist Orthopedics 02/24/23 06/30/23 Evangelina Zambrano MD [address] [place] [address] 42537 Home Care Provider Orthopedics 05/10/23 Evangelina Zambrano MD [address] [place] [address] 04886 Referring Orthopedics 05/10/23 Bagger Meat Relationship Specialty Start Date End Date Heena Birch APRN.ASSOCIATE MERCHANDISE PLANNER [address] [place] [address] 75482 PCP - General Internal Medicine 04/16/23 Beverly Arce, PAMELLA EHP Nanotechnologist 04/22/19 Tico Fox, [facility] [address] [place] [address] Specialty Nanotechnologist Orthopedics 02/24/23 06/30/23 Evangelina Zambrano MD [address] [place] [address] 70619 Home Care Provider Orthopedics 05/10/23 Evangelina Zambrano MD [address] [place] [address] 74303 Referring Orthopedics 05/10/23 Bagger Meat Relationship Specialty Start Date End Date Heena Birch 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 [address] [place] [address] 31307 PCP - General Internal Medicine 04/16/23 Beverly Arce, PAMELLA EHP Nanotechnologist 04/22/19 Evangelina Zambrano MD [address] [address] Home Care Provider Orthopedics 05/10/23 Evangelina Zambrano MD [address] [address] Referring Orthopedics 05/10/23 Bagger Meat Relationship Specialty Start Date End Date Heena Birch APRN.ASSOCIATE MERCHANDISE PLANNER [address] [place] [address] 17933 PCP - General Internal Medicine 04/16/23 Beverly Arce, RN EHP Nanotechnologist 04/22/19 Evangelina Zambrano MD [address] [place] [address] 20419 Home Care Provider Orthopedics 05/10/23 Evangelina Zambrano MD [address] [place] [address] 98898 Referring Orthopedics 05/10/23 Bagger Meat Relationship Specialty Start Date End Date Heena Birch APRN.ASSOCIATE MERCHANDISE PLANNER [address] [place] [address] PCP - General Internal Medicine 04/16/23 Beverly Arce RN EHP Nanotechnologist 04/22/19 Evangelina Zambrano MD [address] [place] [address] 69734 Home Care Provider Orthopedics 05/10/23 Evangelina Zambrano MD [address] [place] [address] 65848 Referring Orthopedics 05/10/23 Bagger Meat Relationship Specialty Start Date End Date Heena Birch APRN.ASSOCIATE MERCHANDISE PLANNER [address] [place] [address] 05947 PCP - General Internal Medicine 04/16/23 Beverly Arce RN EHP Nanotechnologist 04/22/19 Evangelina Zambrano MD [address] [address] Home Care Provider Orthopedics 05/10/23 Evangelina Zambrano MD [address] 6[address]99 Referring Orthopedics 05/10/23 Bagger Meat Relationship Specialty Start Date End Date Heena Birch APRN.ASSOCIATE MERCHANDISE PLANNER [address] [place] [address] 25879 PCP - General Internal Medicine 04/16/23 Beverly Arce, RN EHP Nanotechnologist 04/22/19 Evangelina Zambrano MD [facility] [address] [address] Home Care Provider Orthopedics 05/10/23 Evangelina Zambrano MD [address] [place] [address] 06044 Referring Orthopedics 05/10/23 Bagger Meat Relationship Specialty Start Date End Date Heena Birch 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 [address] [place] [address] 40708 PCP - General Internal Medicine 04/16/23 Beverly Arce, RN EHP Nanotechnologist 04/22/19 Evangelina Zambrano MD [address] [address]141 Home Care Provider Orthopedics 05/10/23 Evangelina Zambrano MD [address] [address] Referring Orthopedics 05/10/23 Bagger Meat Relationship Specialty Start Date End Date Heena Birch APRN.ASSOCIATE MERCHANDISE PLANNER [address] [place] [address] 58281 PCP - General Internal Medicine 04/16/23 Beverly Arce, RN EHP Nanotechnologist 04/22/19 Evangelina Zambrano MD [address] 00284 Home Care Provider Orthopedics 05/10/23 Evangelina Zambrano MD [address] [address] Referring Orthopedics 05/10/23 Bagger Meat Relationship Specialty Start Date End Date Heena Birch 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 [address] [place] [address] 49168 PCP - General Internal Medicine 04/16/23 Beverly Arce RN EHP Nanotechnologist 04/22/19 Evangelina Zambrano MD [address] [address]751 Home Care Provider Orthopedics 05/10/23 Evangelina Zambrano MD [facility] [address] [address] Referring Orthopedics 05/10/23 Bagger Meat Relationship Specialty Start Date End Date Heena Birch 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 [address] [place] [address] [phone] PCP - General Internal Medicine 04/16/23 Beverly Arce, RN EHP Nanotechnologist 04/22/19 Evangelina Zambrano MD [address] 8[address]68 Home Care Provider Orthopedics 05/10/23 Evangelina Zambrano MD [address] 9[address]47 Referring Orthopedics 05/10/23 Bagger Meat Relationship Specialty Start Date End Date Heena Birch APRN.ASSOCIATE MERCHANDISE PLANNER [address] [place] [address] 71041 PCP - General Internal Medicine 04/16/23 Beverly Arce RN EHP Nanotechnologist 04/22/19 Evangelina Zambrano MD [address] [place] [address] 73888 Home Care Provider Orthopedics 05/10/23 Evangelina Zambrano MD [address] [place] [address] 11145 Referring Orthopedics 05/10/23 Bagger Meat Relationship Specialty Start Date End Date Heena Birch APRN.ASSOCIATE MERCHANDISE PLANNER [address] [place] [address] 84583 PCP - General Internal Medicine 04/16/23 Beverly Arce, PAMELLA EHP Nanotechnologist 04/22/19 Evangelina Zambrano MD [address] [place] [address] 03287 Home Care Provider Orthopedics 05/10/23 Evangelina Zambrano MD [address] [place] [address] 34171 Referring Orthopedics 05/10/23 Bagger Meat Relationship Specialty Start Date End Date Heena Birch APRN.ASSOCIATE MERCHANDISE PLANNER [address] [place] [address] 26653 PCP - General Internal Medicine 04/16/23 Beverly Arce, RN EHP Nanotechnologist 04/22/19 Evangelina Zambrano MD [facility] [address] [address] Home Care Provider Orthopedics 05/10/23 Evangelina Zambrano MD [address] [place] [address] 70025 Referring Orthopedics 05/10/23 Bagger Meat Relationship Specialty Start Date End Date Heena Birch, 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 [address] [place] [address] 59770 PCP - General Internal Medicine 04/16/23 Beverly Arce RN P Nanotechnologist 04/22/19 Evangelina Zambrano MD [address] [place] [address] 32081 Home Care Provider Orthopedics 05/10/23 Evangelina Zambrano MD [address] [place] [address] 41018 Referring Orthopedics 05/10/23 Bagger Meat Relationship Specialty Start Date End Date Heena Birch, 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 [address] [place] [address] 66660 PCP - General Internal Medicine 04/16/23 Beverly Arce, PAMELLA EHP Nanotechnologist 04/22/19 Evangelina Zambrano MD [address] [place] [address] [phone] Home Care Provider Orthopedics 05/10/23 Evangelina Zambrano MD [address] [place] [address] 07708 Referring Orthopedics 05/10/23 Bagger Meat Relationship Specialty Start Date End Date Heena Birch APRN.ASSOCIATE MERCHANDISE PLANNER [address] [place] [address] 84740 PCP - General Internal Medicine 04/16/23 Beverly Arce RN EHP Nanotechnologist 04/22/19 Evangelina Zambrano MD [address] [place] [address] 81412 Home Care Provider Orthopedics 05/10/23 Evangelina Zambrano MD [address] [place] [address] 53606 Referring Orthopedics 05/10/23 Bagger Meat Relationship Specialty Start Date End Date Heena Birch APRN.ASSOCIATE MERCHANDISE PLANNER [address] [place] [address] 36980 PCP - General Internal Medicine 04/16/23 Beverly Acre RN EHP Nanotechnologist 04/22/19 Evangelina Zambrano MD [address] [place] [address] 58884 Home Care Provider Orthopedics 05/10/23 Evangelina Zambrano MD [address] [place] [address] 27736 Referring Orthopedics 05/10/23 Bagger Meat Relationship Specialty Start Date End Date Heena Birch APRN.ASSOCIATE MERCHANDISE PLANNER [address] [place] [address] PCP - General Internal Medicine 04/16/23 Beverly Arce, PAMELLA EHP Nanotechnologist 04/22/19 Tico Fox [facility] [address] [place] [address] Specialty Nanotechnologist Orthopedics 02/24/23 06/30/23 Evangelina Zambrano MD [address] [place] [address] 26852 Home Care Provider Orthopedics 05/10/23 Evangelina Zambrano MD [address] [place] [address] 02428 Referring Orthopedics 05/10/23 Marii Peraza, PT [address] [place] [address] Software Quality Analyst Post Acute Care 05/10/23 05/28/23 Bagger Meat Relationship Specialty Start Date End Date Heena Birch APRN.CNP [address] [place] [address] PCP - General Internal Medicine 04/16/23 Beverly Arce, PAMELLA [facility] Nanotechnologist 04/22/19 Evangelina Zambrano MD [address] [place] [address] 93747 Home Care Provider Orthopedics 05/10/23 Evangelina Zambrano MD [address] [place] [address] 44751 Referring Orthopedics 05/10/23 Bagger Meat Relationship Specialty Start Date End Date Sivakumar Matamoros PA-C [address] [place] [address] PCP - General Family Medicine 09/16/18 04/15/23 Beverly Arce, RN EHP Nanotechnologist 04/22/19 Bagger Meat Relationship Specialty Start Date End Date Sivakumar Matamoros PA-C [address] [place] [address] 35933 PCP - General Family Medicine 09/16/18 04/15/23 Beverly Arce, RN EHP Nanotechnologist 04/22/19 Bagger Meat Relationship Specialty Start Date End Date Heena Birch, 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 [address] [place] [address] 04307 PCP - General Internal Medicine 04/16/23 Beverly Arce, RN EHP Nanotechnologist 04/22/19 Evangelina Zambrano MD [address] [place] [address] 04900 Home Care Provider Orthopedics 05/10/23 Evangelina Zambrano MD [address] [place] [address] 84960 Referring Orthopedics 05/10/23 Bagger Meat Relationship Specialty Start Date End Date Heena Birch 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 [address] [place] [address] 61076 PCP - General Internal Medicine 04/16/23 Beverly Arce, PAMELLA EHP Nanotechnologist 04/22/19 Evangelina Zambrano MD [address] [place] [address] 01054 Home Care Provider Orthopedics 05/10/23 Evangelina Zambrano MD [address] [place] [address] 32228 Referring Orthopedics 05/10/23 Bagger Meat Relationship Specialty Start Date End Date Heena Birch APRN.ASSOCIATE MERCHANDISE PLANNER [address] [place] [address] 22187 PCP - General Internal Medicine 04/16/23 Beverly Arce, RN EHP Nanotechnologist 04/22/19 Evangelina Zambrano MD [address] [place] [address] 25386 Home Care Provider Orthopedics 05/10/23 Evangelina Zambrano MD [address] [place] [address] 24225 Referring Orthopedics 05/10/23 Bagger Meat Relationship Specialty Start Date End Date Heena Birch APRN.ASSOCIATE MERCHANDISE PLANNER [address] [place] [address] 76266 PCP - General Internal Medicine 04/16/23 Beverly Arce RN P Nanotechnologist 04/22/19 Evangelina Zambrano MD [address] [place] [address] 99957 Home Care Provider Orthopedics 05/10/23 Evangelina Zambrano MD [address] [place] [address] 49199 Referring Orthopedics 05/10/23 Bagger Meat Relationship Specialty Start Date End Date Heena Birch APRN.ASSOCIATE MERCHANDISE PLANNER [address] [place] [address] 77309 PCP - General Internal Medicine 04/16/23 Beverly Arce RN EHP Nanotechnologist 04/22/19 Evangelina Zambrano MD [address] [address] Home Care Provider Orthopedics 05/10/23 Evangelina Zambrano MD [address] 88176 Referring Orthopedics 05/10/23 Bagger Meat Relationship Specialty Start Date End Date Heena Birch, 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 [address] [place] [address] 31354 PCP - General Internal Medicine 04/16/23 Beverly Arce RN EHP Nanotechnologist 04/22/19 Evangelina Zambrano MD [address] [place] [address] 97141 Home Care Provider Orthopedics 05/10/23 Evangelina Zambrano MD [facility] [address] [address] Referring Orthopedics 05/10/23 Bagger Meat Relationship Specialty Start Date End Date Heena Birch 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 [address] [place] [address] 68218 PCP - General Internal Medicine 04/16/23 Beverly Arce, PAMELLA EHP Nanotechnologist 04/22/19 Evangelina Zambrano MD [address] 84161 Home Care Provider Orthopedics 05/10/23 Evangelina Zambrano MD [address] 10639 Referring Orthopedics 05/10/23 Bagger Meat Relationship Specialty Start Date End Date Heena Birch APRN.ASSOCIATE MERCHANDISE PLANNER [address] [place] [address] PCP - General Internal Medicine 04/16/23 Beverly Arce, RN EHP Nanotechnologist 04/22/19 Evangelina Zambrano MD [facility] [address] [address] Home Care Provider Orthopedics 05/10/23 Evangelina Zambrano MD [facility] [address] [address]60 Referring Orthopedics 05/10/23 Bagger Meat Relationship Specialty Start Date End Date Heena Birch APRN.ASSOCIATE MERCHANDISE PLANNER [address] [place] [address] PCP - General Internal Medicine 04/16/23 Beverly Arce RN [facility] Nanotechnologist 04/22/19 Evangelina Zambrano MD [facility] [address] [address]68 Home Care Provider Orthopedics 05/10/23 Evangelina Zambrano MD [facility] [address] 8[address]51 Referring Orthopedics 05/10/23 Bagger Meat Relationship Specialty Start Date End Date Heena Birch APRN.ASSOCIATE MERCHANDISE PLANNER [address] [place] [address] PCP - General Internal Medicine 04/16/23 Beverly Arce, RN EHP Nanotechnologist 04/22/19 Evangelina Zambrano MD [address] 7[address]79 Home Care Provider Orthopedics 05/10/23 Evangelina Zambrano MD [address] 99994 Referring Orthopedics 05/10/23 Bagger Meat Relationship Specialty Start Date End Date Heena Birch 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 [address] [place] [address] PCP - General Internal Medicine 04/16/23 Beverly Arce, RN EHP Nanotechnologist 04/22/19 Evangelina Zambrano MD [address] [address] Home Care Provider Orthopedics 05/10/23 Evangelina Zambrano MD [address] 87142 Referring Orthopedics 05/10/23 Bagger Meat Relationship Specialty Start Date End Date Heena Birch 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 [address] [place] [address] PCP - General Internal Medicine 04/16/23 Beverly Arce, RN EHP Nanotechnologist 04/22/19 Evangelina Zmabrano MD [address] 9[address]72 Home Care Provider Orthopedics 05/10/23 Evangelina Zambrano MD [address] 97737 Referring Orthopedics 05/10/23 Bagger Meat Relationship Specialty Start Date End Date Heena Birch APRN.ASSOCIATE MERCHANDISE PLANNER [address] [place] [address] PCP - General Internal Medicine 04/16/23 Beverly Arce, RN EHP Nanotechnologist 04/22/19 Evangelina Zambrano MD [address] [place] [address] 29758 Home Care Provider Orthopedics 05/10/23 Evangelina Zambrano MD [address] [place] [address] 39574 Referring Orthopedics 05/10/23 Bagger Meat Relationship Specialty Start Date End Date Heena Birch APRN.ASSOCIATE MERCHANDISE PLANNER [address] [place] [address] PCP - General Internal Medicine 04/16/23 Beverly Arce RN EHP Nanotechnologist 04/22/19 Evangelina Zambrano MD [address] [place] [address] 90483 Home Care Provider Orthopedics 05/10/23 Evangelina Zambrano MD [address] [place] [address] 15107 Referring Orthopedics 05/10/23 Bagger Meat Relationship Specialty Start Date End Date Heena Birch APRN.ASSOCIATE MERCHANDISE PLANNER [address] [place] [address] PCP - General Internal Medicine 04/16/23 Beverly Arce RN EHP Nanotechnologist 04/22/19 Evangelina Zambrano MD [address] [address] Home Care Provider Orthopedics 05/10/23 Evangelina Zambrano MD [address] 94422 Referring Orthopedics 05/10/23 Bagger Meat Relationship Specialty Start Date End Date Heena Birch 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 [address] [place] [address] PCP - General Internal Medicine 04/16/23 Beverly Arce, RN EHP Nanotechnologist 04/22/19 Evangelina Zambrano MD [address] 30479 Home Care Provider Orthopedics 05/10/23 Evangelina Zambrano MD [address] 42746 Referring Orthopedics 05/10/23 Bagger Meat Relationship Specialty Start Date End Date Heena Birch 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 [address] [place] [address] PCP - General Internal Medicine 04/16/23 Beverly Arce, RN EHP Nanotechnologist 04/22/19 Evangelina Zambrano MD [address] 50948 Home Care Provider Orthopedics 05/10/23 Evangelina Zambrano MD [address] 45995 Referring Orthopedics 05/10/23 Bagger Meat Relationship Specialty Start Date End Date Heena Birch, 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 [address] [place] [address] PCP - General Internal Medicine 04/16/23 Beverly Arce, RN EH Nanotechnologist 04/22/19 Evangelina Zambrano MD [address] 7[address] Home Care Provider Orthopedics 05/10/23 Evangelina Zambrano MD [address] 98544 Referring Orthopedics 05/10/23 Bagger Meat Relationship Specialty Start Date End Date Heena Birch 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 [address] [place] [address] PCP - General Internal Medicine 04/16/23 Beverly Arce, PAMELLA [facility] Nanotechnologist 04/22/19 Evangelina Zambrano MD [address] [address] Home Care Provider Orthopedics 05/10/23 Evangelina Zambrano MD [address] 15700 Referring Orthopedics 05/10/23 FOR RECORDS PERTAINING TO PATIENTS WHO ARE OR HAVE BEEN ENROLLED IN A CHEMICAL DEPENDENCY/SUBSTANCEABUSE PROGRAM, SOME INFORMATION MAY BE OMITTED. This clinical summary was aggregated from multiple sources. Caution should be exercised in using it in the provision of clinical care. This summary normalizes information from multiple sources, and as a consequence, information in this document may materially change the coding, format and clinical context of patient data. In addition, data may be omitted in some cases. CLINICAL DECISIONS SHOULD BE BASED ON THE PRIMARY CLINICAL RECORDS. [facility] [employer] [facility]. provides no warranty or guarantee of the accuracy or completeness of information in this document.
[2025-04-07 10:20] LABS: Hematocrit 41.1 % (37-47); Hemoglobin 14.8 g/dL (12.0-15.0); Immature Granulocytes Count 0.040 X10^3/uL (0.0-0.0); Mean Corp Hgb Conc 36.0 g/dL (32-36); Mean Corpuscular Volume 82.0 fL (81-99); Mean Platelet Vol. 10.1 fl (6.2-12.0); NRBC Flagged by Analyzer 0 % (0-5); POSITIVE DIFFERENTIAL YES; Platelet Count 237 K/mm3 (150-450); RBC Distribution Width CV 12.8 % (11.6-14.6); RBC Distribution Width SD 38.3 fl (35.1-43.9); Red Blood Count 5.01 M/mm3 (4.2-5.4); White Blood Count 12.7 K/mm3 (4.4-11.0)
[2025-04-07] MEDS: 0.9% Normal Saline (500mL Bag) 500 ML 999 ML IV (10:38)
[2025-04-07 10:53] LABS: Anion Gap 13 (7-18); BUN 23 mg/dL (4-19); BUN/Creat Ratio 26.5 RATIO (10-20); Calcium,Total 9.2 mg/dL (7.6-11.0); Carbon Dioxide 21.3 mmol/L (20.0-29.0); Chloride 105 mmol/L (96-106); Estimated Creatinine Clearance 77.91 ml/min (50-250); Glucose 127 mg/dL (70-99); Potassium 3.9 mmol/L (3.5-5.1); Troponin T High Sensitivity < 6 ng/L (<=14)
--- NOTE | 2025-04-07 10:56 | EKG12_ITS ---
Test Reason : REPEAT FOR CP Blood Pressure : */* mmHG Vent. Rate : 82 BPM Atrial Rate : 82 BPM P-R Int : 164 ms QRS Dur : 86 ms QT Int : 348 ms P-R-T Axes : 59 31 23 degrees QTcB Int : 406 ms Normal sinus rhythm ST & T wave abnormality, consider anterior ischemia Abnormal ECG Confirmed by Brandon Olvera ([id number]), photo editor GELY PASTOR ([id number]) on 04/13/2025 7:12:43 AM Referred By: Confirmed By: Brandon Olvera
[2025-04-07 13:24] LABS: Troponin T High Sens 2 HR < 6 ng/L (<=14)
== END 2025-04-07 13:43 | disposition home or self-care (01) ==
PROVIDERS: Emergency Provider Emergency Medicine; PCP Family Medicine; Visit Provider Emergency Medicine
DX: R07.9 Chest pain, unspecified (principal); K29.70 Gastritis, unspecified, without bleeding; R11.2 Nausea with vomiting, unspecified
CPT/HCPCS: 71046; 80048; 84484; 85025; 93005; 96361; 96374; 96375; 99285; A4216; J2405